=== PATIENT | male | born 1950 | race Caucasian/White ===

== ENCOUNTER → 2019-03-18 13:31 | Outpatient (CLI) | payer OTHER, SELFPAY ==
[2019-03-18 16:47] LABS: Prostate Specific Antigen 10.5 ng/mL (0.10-4.00)
== END ==
PROVIDERS: PCP Family Medicine; Visit Provider Urology
DX: R97.20 Elevated prostate specific antigen [PSA] (principal)
CPT/HCPCS: 36415; 84153

== ENCOUNTER → 2019-10-14 09:07 | Outpatient (CLI) | payer OTHER, SELFPAY ==
[2019-10-14 10:06] LABS: Add Manual Diff / Slide Review NO; Basophils Absolute Auto 100 /uL (0-100); Basophils Percent Auto 0.9 % (0-2); Eosinophils Absolute Auto 100 /uL (0-450); Eosinophils Percent Auto 1.9 % (2-4); Hematocrit 40.1 % (41-53); Hemoglobin 13.1 g/dL (13.5-17.5); Lymphocytes Absolute Auto 1600 /uL (1100-4500); Lymphocytes Percent Auto 23.8 % (25-40); Mean Corpuscular HGB Conc 32.6 % (30-36); Mean Corpuscular Hemoglobin 29.3 PG (26-34); Mean Corpuscular Volume 89.9 fL (80-100); Monocytes Absolute Auto 600 /uL (0-900); Monocytes Percent Auto 8.3 % (3-14); Neutrophils Absolute Auto 4500 /uL (1500-7000); Neutrophils Percent Auto 65.1 % (50-75); Platelet Count 231 X10^3/uL (150-400); Red Blood Cell Count 4.46 X10^6/uL (4.5-5.9); Red Cell Distribution Width 14.5 % (11.6-14.8); White Blood Cell Count 6.9 X10^3/uL (4.5-11.0)
[2019-10-14 10:19] LABS: Hemoglobin A1C% w Est Avg Glu 7.3 % (4.0-6.0)
[2019-10-14 10:25] LABS: Blood Urea Nitrogen 25 mg/dL (9-20); Calcium 9.3 mg/dL (8.4-10.2); Carbon Dioxide 27 mmol/L (22-32); Chloride 103 mmol/L (98-107); Estimated Glomerular Filt Rate > 60.0 mL/min (>60); Glucose 131 mg/dL (80-110); HEMOLYSIS < 15 (0-50); Potassium 4.6 mmol/L (3.4-5.1); Sodium 139 mmol/L (137-145)
== END ==
PROVIDERS: PCP Internal Medicine; Referring Provider Orthopaedic Surgery; Visit Provider Orthopaedic Surgery
DX: Z01.812 Encounter for preprocedural laboratory examination (principal); R73.9 Hyperglycemia, unspecified
CPT/HCPCS: 36415; 80048; 83036; 85025

== ENCOUNTER → 2019-10-17 11:28 | Outpatient (CLI) | payer OTHER, SELFPAY ==
[2019-10-17 12:12] LABS: Add Manual Diff / Slide Review NO; Basophils Absolute Auto 100 /uL (0-100); Basophils Percent Auto 0.9 % (0-2); Eosinophils Absolute Auto 100 /uL (0-450); Hematocrit 40.2 % (41-53); Hemoglobin 13.2 g/dL (13.5-17.5); Lymphocytes Absolute Auto 2000 /uL (1100-4500); Lymphocytes Percent Auto 27.8 % (25-40); Mean Corpuscular HGB Conc 32.8 % (30-36); Mean Corpuscular Hemoglobin 29.5 PG (26-34); Monocytes Absolute Auto 700 /uL (0-900); Monocytes Percent Auto 9.2 % (3-14); Neutrophils Absolute Auto 4300 /uL (1500-7000); Neutrophils Percent Auto 60.1 % (50-75); Platelet Count 228 X10^3/uL (150-400); Red Blood Cell Count 4.46 X10^6/uL (4.5-5.9); Red Cell Distribution Width 14.3 % (11.6-14.8); White Blood Cell Count 7.1 X10^3/uL (4.5-11.0)
[2019-10-17 13:19] LABS: Blood Urea Nitrogen 22 mg/dL (9-20); Calcium 9.6 mg/dL (8.4-10.2); Carbon Dioxide 27 mmol/L (22-32); Chloride 101 mmol/L (98-107); Estimated Glomerular Filt Rate > 60.0 mL/min (>60); Glucose 112 mg/dL (80-110); HEMOLYSIS < 15 (0-50); Sodium 139 mmol/L (137-145)
== END ==
PROVIDERS: PCP Family Medicine; Referring Provider Orthopaedic Surgery; Visit Provider Orthopaedic Surgery
DX: Z01.812 Encounter for preprocedural laboratory examination (principal)
CPT/HCPCS: 36415; 80048; 85025

== ENCOUNTER 2019-10-31 05:59 | Inpatient (IN) | payer OTHER, SELFPAY ==
[2019-09-30 12:37] VITALS: BMI 38.2
[2019-10-31] VITALS (18 sets, daily range): BP systolic 84–169; BP diastolic 34–71; PULSE 45–66; RESP 8–20; TEMP 36.3–37.1; O2SAT 90–99; BMI 36.4
--- NOTE | 2019-10-31 | DI.RAD.S_ITS ---
PROCEDURE: XR LUMBAR SPINE 2-3V INDICATIONS: L5-S1 TLIF TECHNIQUE: 2 intraoperative fluoroscopic views of the lumbar spine were acquired. COMPARISON: [facility], MR, MR LUMBAR SPINE WITHOUT CONTRAST, 03/21/2019, 9:45. FINDINGS: L5-S1 TLIF and intervertebral body spacer. IMPRESSION: Expected intraoperative appearance. Dictated by: Kenneth Mcmanus M.D. on 10/31/2019 at 15:23 Approved by: Kenneth Mcmanus M.D. on 10/31/2019 at 15:26
--- NOTE | 2019-10-31 07:12 | PM.PREOP ---
Pre-operative Note Interval Note History & Physical reviewed/Exam performed by Physician: Yes Changes to H&P: No
[2019-10-31] MEDS: LACTATED RINGERS 1,000 ML 42 ML IV ×2 (07:25→08:53)
[2019-10-31] MEDS: ACETAMINOPHEN 325 MG TABLET 975 MG PO (07:27)
[2019-10-31] MEDS: GABAPENTIN 300 MG CAPSULE PO (07:27)
[2019-10-31] MEDS: CELECOXIB 200 MG CAPSULE 400 MG PO ×2 (07:27→14:17)
[2019-10-31] MEDS: CEFAZOLIN 2 GM/100 ML FROZ.PIGGY IV ×3 (07:50→23:22)
[2019-10-31] MEDS: SODIUM CHLORIDE 0.9% 1,000 ML, GENTAMICIN 80 MG IRR (08:33)
[2019-10-31] MEDS: VANCOMYCIN 1,000 MG VIAL 1000 MG TOP (08:33)
[2019-10-31] MEDS: THROMBIN (RECOMBINANT) 5,000 UNIT VIAL 5000 UNIT TOP (08:33)
--- NOTE | 2019-10-31 08:39 | SUR.OPER ---
Prone on spine table, head in foam head support, padded chest and pelvic supports, gel pad at knees, lower legs supported by pillows; nipples, genitalia and toes free of pressure, arms secured on foam padded arm boards at <90 degrees abduction. Tape over blanket at thigh secured to table.
[2019-10-31] MEDS: BUPIVACAINE 0.5% (PF) 4 ML, MORPHINE-PF 4 MG, BUTORPHANOL 1 MG, fentaNYL 100 MCG INJ (11:10)
--- NOTE | 2019-10-31 12:01 | P.OP_ITS ---
Operative Date/Time/Diagnoses Date of procedure: 10/31/19 Time of procedure: 12:01 Pre-op diagnosis: Lumbar stenosis with radiculopathy Post-op diagnosis: same Procedure & Clinicians Procedure: L2-3, L3-4, L4-5, L5-S1 laminectomies L5-S1 TLIF with cage L5, S1 screws Iliac crest bone graft aspirate Use of microscope Placement of epidural catheter Same procedure as scheduled: Yes Indications: [age] year old male with intractable pain from stenosis. They had failed conservative management and requested operative intervention. Risks and benefits of surgery were discussed and appropriate consents were obtained. Surgeon: Tc Cho Powerhouse Tender: Ingris Trujillo Anesthesia Type: General Operative Notes Findings: None Closure Type: primary Specimen(s): none sent Prosthetic devices, grafts, tissues, transplants, or devices: NuVasive MAS Reline screws Globus Rise cage Applied: catheter Estimated Blood Loss (mL): 20 Procedure in detail: The patient was brought to the operating room and intubated on the table. A time-out was performed. They were then rolled over to the well- padded Valdez table in the prone position. Preoperative antibiotics were given. The back was prepped and draped in the standard sterile fashion. A 12 cm cm incision was made in the midline. We dissected down the right sided paraspinals to expose the lamina from L2 through S1 and out over the facets to the transverse processes and ala at L5 and S1. X-ray was taken to confirm positioning. A bur was used to decorticate the junction of the transverse process and facet. We then advanced a Jamshidi needle down the right pedicles of L5 and S1 using neuromonitoring and fluoroscopy. Due to the amount of force we had to retract trying to get S1 in, we made this one an alar screw. These were changed out to guidewires. We tapped and then placed our MAS reline screw shanks. A bur was used to decorticate the transverse process and sacral ala. Using a combination of bur and Kerrison rongeur a laminectomy was performed from the right side at L5-S1, L4-5, L3-4, and L2-3.. We cleared over past the midline and carefully depressed the dura until we were able to decompress the opposite side. We cleared out the neural foramen. This completed the laminectomies at all 4 levels. This was separate and distinct from the TLIF approach at L5-S1 as we were decompressing the canal and the nerves. We did have to do a facetectomy at L5-S1 to open up the foramen. We then began the TLIF prep. We carefully cleaned up the remainder of the foramen until we could easily retract the exiting root as well as clearing m edially below the dura and expose the disc space. The disc was prepped with bipolar and then an annulotomy was performed. We performed a diskectomy using a combination of paddles, amanda, Kerrison, and curettes. We distracted the disc using a paddle and locked the retractor in an open position. We then filled the disc space with Osteocel bone graft. We then placed the globus Rise cage under fluoroscopy and then filled this in with more bone graft. This completed the posterior interbody fusion portion of the TLIF at L5-S1. We then placed the screw heads on the screw shanks. We measured and placed the deloris and locked down the set screws. The wound was copiously irrigated. A small stab incision was made over the PSIS. We used a Jamshidi needle to aspirate several mL of bone marrow from the pelvis. This was mixed with the remaining Osteocel and combined with all of the locally harvested bone graft and placed in the posterolateral gutter for the posterior fusion of the TLIF at L5- S1. An epidural catheter was then placed in the spinal canal by carefully depressing the dura and advancing it 6 cm cephalad under the remaining lamina at L2 without resistance. The muscle fascia was closed. The catheter was then injected with a solution containing 4 mL of 0.5% Marcaine, 1 mg Stadol, 4 mg Duramorph, and 100 mcg of fentanyl. This was injected without resistance and the catheter was pulled. We then made a 4 cm incision on the left side using fluoroscopy. We opened up the fascia. We then percutaneously placed Jamshidi needles down the left pedicles of L5 and S1 with neural monitoring and fluoroscopy. These were changed out over guidewires to tapping and then placing our screws. We placed a deloris and locked it down. Final x-rays were taken. Vancomycin powder was placed in the wounds. The superficial and skin were closed. A sterile dressing was placed. The patient was then rolled over extubated and brought to recovery room without complications. Complications: none Post-operative Condition: stable Disposition: PACU Plan for aftercare: Inpatient. He has medical history of diabetes as well as stroke and has been on blood thinners until the surgery. He will need to restart his Plavix on postoperative day 5.
--- NOTE | 2019-10-31 12:31 | SUR.PHASEI ---
initial vital signs done at time of admission into PACU was done at 1212
--- NOTE | 2019-10-31 13:38 | PC.NURSE ---
Day shift: Pt on unit at approx 1330 from PACU. VS WNL. 2L NC 96%. Oriented to room and call light. Foster patent and draining. IV fluids per MAR. Denies any pain or chest pain. Spouse in room for support. Tolerating SCD's. Dressing on back is CDI.
[2019-10-31] MEDS: LACTATED RINGERS 1,000 ML 125 ML IV ×2 (13:53→22:01)
[2019-10-31] MEDS: METFORMIN HCL 500 MG TABLET 1000 MG PO ×2 (14:01→21:42)
[2019-10-31] MEDS: lisinopriL 20 MG TABLET PO (14:01)
[2019-10-31] MEDS: BACLOFEN 10 MG TABLET 40 MG PO (16:47)
--- NOTE | 2019-10-31 17:54 | PT.IIE ---
Current Diagnoses Spinal stenosis, lumbar region with neurogenic claudication (10/31/19) Ankylosing hyperostosis [[place]], site unspecified (10/31/19) Surgery Performed Operation Date: 08/30/19 07:45 <No data on this case meets the specified criteria> Operation Date: 10/31/19 07:45 Actual Procedures p L2-S1 laminectomies, L5-S1 instrumented fusion with bone graft - Tc Cho MD Surgical History (Last Reviewed 05/08/18 @ 16:14 by Sherif Melgoza MD) History of spinal fusion Medical History (Last Updated 09/30/19 @ 13:26 by Kellee Salinas RN) Adopted (Acute) Anxiety (Acute) BPH (benign prostatic hyperplasia) (Chronic) Cervical myelopathy (Chronic 11/16/17) Cervical stenosis of spinal canal (Acute) Claustrophobia (Acute) Depression (Acute) Easy bruisability (Acute) Essential hypertension (Chronic 07/14/14) Iron deficiency (Chronic 07/31/17) Mixed hyperlipidemia (Chronic 01/24/12) Myelopathy (Acute) Panic disorder (Chronic) Poor sleep (Acute) 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 Pt had a CVA 5 years ago and worked with [employer] for speech and swallow at the time. He and his report no residual communication deficits. Mobility and Gait Pt has mild R-sided hemiparesis resultant from CVA five years ago. He has been using SPC or 4WW ~10% of the time. He has been able to ambulate long parking lot distances without AD. Activities of Daily Living and IADL's Pt has had difficulty donning socks, occasionally needing help from his . He also reports difficulty washing his back. Independent with toileting. Prior Functional Level (Other details) Pt reports three falls in the last 12 months, none injurious . Social History Household Members spouse Living Arrangements House Number of Floors (Floors) Two Floors Number of Stairs To Enter/Railing? 3 [place] without railing. 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 Home Environment Standard Height Toilet,Walk in Shower Home Equipment Front Wheel Walker,Four Wheel Walker,Quad Cane,Straight Cane ,Raised Toilet Seat Without Armrests,Shower Seat without Backrest,Lift Recliner,Grab Bars Near Toilet Employment Status Retired Additional Social History Comment Pt lives with his who is also retired but is limited in her ability to assist at home due to back pain and typically ambulating with a 4WW. M2 PT-IP Current Condition Start: 10/31/19 16:34 Freq: NEEDED Status: Active Protocol: Document 10/31/19 17:26 AW (Rec: 10/31/19 17:54 AW [id number]) Physical Therapy Current Condition Current Condition Evaluation Date 10/31/19 Treatment Diagnosis L2-S1 lami, L5-S1 fusion, impaired mobility Onset Date 10/31/19 Precautions Lumbar Precautions Log Roll,No Twisting,Limit Bending,Lifting Restriction of 10 lbs,Gait Belt above Incisional Area Weight Bearing Status Weight Bearing Status Full Weight Bearing M3 PT-IP Subjective Start: 10/31/19 16:34 Freq: NEEDED Status: Active Protocol: Document 10/31/19 17:26 AW (Rec: 10/31/19 17:54 AW [id number]) Subjective Physical Therapy Visit Type Type Initial Evaluation Visit Start Time 16:45 Visit Stop Time 17:15 Total Visit Minutes 30 Notes Pt's Angel present throughout evaluation. Physical Therapy Visit Comments Patient Comments Pt feeling drowsy but without pain at the moment, willing to mobilize with PT Patient Goals Pt hopes to discharge home with spouse support. Therapy Pain Assessment Pain When Pain Assessed During Mobility Pain Present Pain Present Denied Pain M4 PT-IP Mobility and Gait Start: 10/31/19 16:34 Freq: NEEDED Status: Active Protocol: Document 10/31/19 17:26 AW (Rec: 10/31/19 17:54 AW [id number]) PT-Bed Mobility Assessment Rolling Type of Rolling Log Rolling Level of Assist Minimal Assistance,1 Person Assistance Supine to Sit Supine to Sit Minimal Assistance,1 Person Assistance Scooting Scooting to Edge of Bed Standby Assistance PT-Transfer Assessment Sit to and From Stand Sit to and from Stand Contact Guard Assistance,1 Person Assistance,Use of Upper Extremities Equipment Transfer Assistive Device Gait Belt,Front Wheeled Walker Orthotic/Prosthetic Devices or Brace: No Transfers Transfer Destination Chair Transfer Technique Stand Step Pivot Transfer Ability Level of Assist Contact Guard Assistance,1 Person Assistance,Use of Upper Extremities Comments Mobility Comments Pt encountered sitting up in bed upon PT arrival. Supine BP was 92/44 HR 53. From flattened bed, pt completed log roll to his left side min A x 1 and cues for sequencing and min A x 1 for supine to sit. Sitting BP was 100/45 HR 67 but pt began to report lightheadedness and had difficulty keeping his eyes open. Once pt seemed more attentive, he completed sit to stand with FWW CGA. Pt became increasingly symptomatic during step pivot transfer to chair CGA where BP was assessed 88/41 HR 56. He was able to scoot his hips back in the chair SBA where he was positioned with call light and table within reach, spouse visiting in room. Gait Assessment Gait Gait Assistance Required: Contact Guard Assist Distance (Feet) 2 Able to Maintain Weight Bearing Status Yes During Gait Assistive Devices Assistive Device Gait Belt,Front Wheeled Walker Orthotic/Prosthetic Devices or Brace: No Gait Deviations General Gait Pattern Antalgic,Decreased Stride Length,Decreased Feet Clearance,Flexed Trunk,Step-to Gait Factors Limiting Gait Function Factors Limiting Gait Function Decreased Activity Tolerance, Decreased Strength,Difficulty Following Directions,Limited Range of Motion,Poor Safety Awareness Comments Gait Comments See mobility comments Stair Climbing Assessment Comments Stair Climbing Comments Not assessed. Not safe at this time. PT-Balance Assessment Sitting Balance and Reactions Static Sitting Balance Ability Good Dynamic Sitting Balance Ability Good Standing Balance and Reactions Static Standing Balance Ability Fair Dynamic Standing Balance Ability Fair Device Used FWW M5 PT-IP Objective Assessments Start: 10/31/19 16:34 Freq: NEEDED Status: Active Protocol: Document 10/31/19 17:26 AW (Rec: 10/31/19 17:54 AW [id number]) Orientation Orientation/Cognition Level of Alertness Confusional State Orientation Name,Month,Place,Situation Language Function Ability No Deficits Noted Safety Awareness Decreased Safety Awareness Gross Range of Motion Lower Extremity ROM Assessment Bilaterally Impaired Strength Lower Extremity Strength Assessment Bilaterally Impaired Comments Strength Comments LLE grossly 4/5; RLE grossly 4 -/5 Coordination Assessment Gross Coordination Gross Coordination WNL Sensation Assessment Sensation Gross Sensation WNL M6 PT-IP Treatment Start: 10/31/19 16:34 Freq: NEEDED Status: Active Protocol: Document 10/31/19 17:26 AW (Rec: 10/31/19 17:54 AW [id number]) Physical Therapy Treatment Education Education Provided Precautions,Weight Bearing Status,Post-Op Packet,Safety Other Treatments Other Treatment Performed Provided education on role of PT, plan of care, spinal precautions, and safe use of FWW. M7 PT-IP Assessment and Plan Start: 10/31/19 16:34 Freq: NEEDED Status: Active Protocol: Document 10/31/19 17:26 AW (Rec: 10/31/19 17:54 AW [id number]) PT Summary Assessment and Plan Potential Rehabilitation Potential Good Status of Condition at Evaluation Evolving Summary Impairments ROM,Strength,Balance,Bed Mobility,Transfers,Gait, Activity Tolerance Assessment Summary Sherwin is a 69 yo man seen for PT evaluation on POD0 following L2-S1 laminectomy and L5-S1 fusion. At baseline, pt had limitations in distance/time for ambulation but was able to walk long parking lot distances without AD. Pt reports he was using SPC or 4WW ~10% of the time. Pt had a CVA 5 years ago with resultant mild right hemiparesis. On evaluation, pt was limited due to symptomatic hypotension. He required CGA to min A x 1 for all mobility. PT anticipates he will meet the functional goals of this plan of care and be safe to discharge home with assist from spouse and outpatient PT. Will continue to assess and refine discharge recommendation. Goals Bed Mobility Goal Standby Assistance Transfer Goal Standby Assistance,Front Wheeled Walker Gait Goal Standby Assistance,Front Wheel Walker Gait Distance 150 Other Goals - up/down 3 steps without railing and LRAD SBA Days to Meet Goals 5 Frequency of Treatment Frequency Of Treatment Twice a Day Treatment Plan Physical Therapy Treatment Plan Bed Mobility Training,Transfer Training,Gait Training, Therapeutic Exercise,Balance Retraining,Post Op Education, Discharge Planning,Hot or Cold Pack,Neuromuscular Re-ed, Coordination Retraining,Manual Therapy Other Recommendations and Next Treatment review precautions, log roll; Focus practice transfers; assess ambulation with FWW; assess safety on stairs. Recommendations To Nursing Amount of Assist Needed 1 Person Assist Discharge Recommendations PT Discharge Recommendations Home with Assistance, Outpatient PT Transportation Needs at Discharge Private Vehicle
[2019-10-31] MEDS: SODIUM CHLORIDE 0.9% 500 ML 1000 ML IV ×2 (20:31→22:29)
--- NOTE | 2019-10-31 20:31 | PC.NURSE ---
Addendum entered by Milana Beebe R.N. 10/31/19 23:28: 2215: BP 100/45, HR 61. Post 1L NS Bolus. Output 175 ml. Denies dizziness, skin pink, warm, and dry. Alert, oriented, and very pleasant. Original Note: Erika shift note: Patient awake and alert, noted with low BP and increase in heart rate with position changes. Notified Dr. Tolliver regarding BP, HR,and low urine output (100 ml) this shift. Orders obtain for Bolus 500 ml x 2 and hold BP meds for now. No c/o chest pain or SOB. States he has very minimal dizziness. Will continue to monitor closely.
[2019-10-31] MEDS: DOCUSATE 100 MG CAPSULE PO (21:41)
[2019-10-31] MEDS: CELECOXIB 200 MG CAPSULE PO (21:41)
[2019-10-31] MEDS: GABAPENTIN 600 MG TABLET PO (21:41)
[2019-10-31] MEDS: SENNOSIDES 8.6 MG TABLET 17.2 MG PO (21:43)
[2019-10-31] MEDS: clonazePAM 0.5 MG TABLET PO (21:45)
[2019-11-01] VITALS (11 sets, daily range): BP systolic 96–131; BP diastolic 52–98; PULSE 53–71; RESP 16–20; TEMP 36.5–37.1; O2SAT 86–98
--- NOTE | 2019-11-01 06:44 | PC.NURSE ---
Turned patient to assess dressing before change of shift (drainage at start of shift noted), dressing was saturated and leaking. Changed dressing and gauze, left xeroform gauze in place, covered with tegaderm. Patient tolerated well.
[2019-11-01] MEDS: LACTATED RINGERS 1,000 ML 125 ML IV ×2 (06:46→20:21)
[2019-11-01 07:06] LABS: Hematocrit 31.9 % (41-53); Hemoglobin 10.4 g/dL (13.5-17.5)
--- NOTE | 2019-11-01 07:27 | PM.PNPO.1 ---
Subjective Subjective Date Patient Seen: 11/01/19 Time Patient Seen: 07:27 Interval history: He is doing very well. Minimal pain. Exam Vital Signs (past 8 hours): - 11/01/19 02:00 11/01/19 05:05 Temperature 98.2 F 97.9 F Pulse Rate 58 L 57 L Respiratory Rate 20 19 Blood Pressure 96/80 109/98 H Pulse Oximetry 98 96 Oxygen Delivery Method Nasal Cannula Oxygen Flow Rate 0 Const Orientation: alert and oriented x3 Back/Spine/Pelvis Other: Dressing changed about an hour ago but already has some moderate drainage on the left side. 5/5 motor both lower extremities. Objective Labs Result Diagrams: 11/01/19 06:55 11/01/19 06:55 Labs: Laboratory Results - last 24 hr 11/01/19 06:55 Hgb 10.4 L Hct 31.9 L Assessment & Plan Post-op Postoperative Procedures: Procedures Operation Date: 08/30/19 07:45 <No data on this case meets the specified criteria> Operation Date: 10/31/19 07:45 Actual Procedures Side Surgeon p L2-S1 laminectomies, L5-S1 instrumented fusion with bone graft Tc Cho MD He is doing well. Mobilize today with physical therapy. Change dressing as needed. Anticipate discharge in the next 1-2 days.
[2019-11-01 07:28] LABS: BUN Creatinine Ratio 23.6 (6-22); Blood Urea Nitrogen 26 mg/dL (9-20); Carbon Dioxide 26 mmol/L (22-32); Chloride 104 mmol/L (98-107); Estimated Glomerular Filt Rate > 60.0 mL/min (>60); Glucose 116 mg/dL (80-110); HEMOLYSIS < 15 (0-50); Potassium 4.4 mmol/L (3.4-5.1); Sodium 136 mmol/L (137-145)
[2019-11-01] MEDS: TAMSULOSIN 0.4 MG CAPSULE 0.8 MG PO (10:02)
[2019-11-01] MEDS: FERROUS SULFATE 325 MG TABLET 650 MG PO (10:03)
[2019-11-01] MEDS: DULOXETINE 30 MG CAPSULE PO (10:03)
[2019-11-01] MEDS: BACLOFEN 10 MG TABLET 20 MG PO (10:04)
[2019-11-01] MEDS: METFORMIN HCL 500 MG TABLET 1000 MG PO ×2 (10:04→18:12)
[2019-11-01] MEDS: DOCUSATE 100 MG CAPSULE PO ×2 (10:05→20:26)
[2019-11-01] MEDS: ATORVASTATIN 20 MG TABLET PO (10:05)
[2019-11-01] MEDS: hydrOXYzine pamoate 25 MG CAPSULE PO (10:07)
[2019-11-01] MEDS: CELECOXIB 200 MG CAPSULE PO ×2 (10:08→20:26)
--- NOTE | 2019-11-01 10:54 | OT.IP.EVAL ---
Current Diagnoses Spinal stenosis, lumbar region with neurogenic claudication (10/31/19) Ankylosing hyperostosis [[place]], site unspecified (10/31/19) Surgery Performed Operation Date: 08/30/19 07:45 <No data on this case meets the specified criteria> Operation Date: 10/31/19 07:45 Actual Procedures p L2-S1 laminectomies, L5-S1 instrumented fusion with bone graft - Tc Cho MD Past Medical History (Last Updated 09/30/19 @ 13:26 by Kellee Salinas RN) Adopted (Acute) Anxiety (Acute) BPH (benign prostatic hyperplasia) (Chronic) Cervical myelopathy (Chronic 11/16/17) Cervical stenosis of spinal canal (Acute) Claustrophobia (Acute) Depression (Acute) Easy bruisability (Acute) Essential hypertension (Chronic 07/14/14) Iron deficiency (Chronic 07/31/17) Mixed hyperlipidemia (Chronic 01/24/12) Myelopathy (Acute) Panic disorder (Chronic) Poor sleep (Acute) 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) Recurrent major depressive disorder, in full remission (Chronic) RLS (restless legs syndrome) (Acute) Shortness of breath (Acute) Type 2 diabetes mellitus without complication (Chronic) Undescended testicle of both sides (Acute) Surgical History (Last Reviewed 05/08/18 @ 16:14 by Shreif Melgoza MD) History of spinal fusion Occupational Therapy Inpatient Evaluation/Re-Eval M1 PT/OT-IP Prior Functional Status Start: 10/31/19 16:34 Freq: NEEDED Status: Active Protocol: Document 11/01/19 12:42 CGR (Rec: 11/01/19 12:52 CGR [id number]) Medical Review Prior Functional Status Medical History Reviewed Yes Diet/Fluid Consistency Regular Communication WNL. Pt had a CVA 5 years ago and worked with STRUCTURAL ENGINEERING DRAFTING OFFICER for speech and swallow at the time. He and his report no residual communication deficits. Mobility and Gait Pt has mild R-sided hemiparesis resultant from CVA five years ago. He has been using SPC or 4WW ~10% of the time. He has been able to ambulate long parking lot distances without AD. Activities of Daily Living and IADL's Pt has had difficulty donning socks, occasionally needing help from his . He also reports difficulty washing his back. Independent with toileting. Prior Functional Level (Other details) Pt reports three falls in the last 12 months, none injurious . Social History Household Members spouse Living Arrangements House Number of Floors (Floors) Two Floors Number of Stairs To Enter/Railing? 3 [place] without railing. Pt stays on entry rep with no need to access the basement. Home Environment Standard Height Toilet,Walk in Shower Home Equipment Front Wheel Walker,Four Wheel Walker,Quad Cane,Straight Cane ,Raised Toilet Seat Without Armrests,Bed Setter,Lift Recliner ,Grab Bars Near Toilet Employment Status Retired Additional Social History Comment Pt lives with his who is also retired but is limited in her ability to assist at home due to back pain and typically ambulating with a 4WW. M2 OT-IP Current Condition Start: 11/01/19 12:42 Freq: Status: Active Protocol: Document 11/01/19 12:42 CGR (Rec: 11/01/19 12:52 CGR [id number]) Occupational Therapy Current Condition Current Condition Evaluation Date 11/01/19 Treatment Diagnosis L2-S1 TLIF with cage Diagnosis Onset Date 10/31/19 Post Operative Precautions Lumbar Precautions Log Roll,No Twisting,Limit Bending,Lifting Restriction of 10 lbs,Gait Belt above Incisional Area M3 OT- IP Subjective and Pain Start: 11/01/19 12:42 Freq: Status: Active Protocol: Document 11/01/19 12:42 CGR (Rec: 11/01/19 12:52 CGR [id number]) OT- Subjective Occupational Therapy Visit Type Type Initial Evaluation Visit Start Time 10:22 Visit Stop Time 10:54 Total Visit Minutes 32 Notes Pt's present at start of session but left to attempt to get shower stool from DME loan location. OT Pain Assessment Pain When Pain Assessed At Rest Pain Present Pain Present Pain Reported Location lower back Intensity 2 Scale Used Numeric (1 - 10) Management Techniques Modification of Treatment, Timing of Activity with Medications M4 OT- IP ADL's Start: 11/01/19 12:42 Freq: Status: Active Protocol: Document 11/01/19 12:42 CGR (Rec: 11/01/19 12:52 CGR [id number]) OT [id number] Comments OT Self-Feeding Comments Not meal time OT ADL-Grooming General Evaluation Grooming Ability Standby Assistance Areas Needing Assistance Face Washing Comments OT Grooming Comments Seated in chair OT ADL-Oral Care General Eval Oral Care Ability Standby Assistance Areas of Assistance Brushing Teeth,Retrieving/Set- Up of Items Comments Oral Care Comments Seated in chair OT ADL-Dressing General Eval Lower Body Dressing Ability Total Assistance Comments OT Dressing Comments LB dressing to be addressed in next session. OT ADL-Toileting Comments OT Toileting Comments Pt with rowe OT ADL-Bathing Comments OT Bathing Comments Not performed in this session. M5 OT- IP IADL's Start: 11/01/19 12:42 Freq: Status: Active Protocol: Document 11/01/19 12:42 CGR (Rec: 11/01/19 12:52 CGR [id number]) OT-Instrumental Activities of Daily Living Deficits IADL Deficits Identified Deficits Home Safety Awareness Awareness of Need for Assistance at Home Good Awareness Ability to Problem Solve Emergency Able to Problem Solve Situations Home Safety Comments Pt will need review of back precautions. Medication Management Medication Management Caregiver Provides Supervision Money Management Money Management Caregiver Provides Supervision Meal Preparation Meal Preparation Caregiver Provides Supervision Tube Operator Tube Operator Caregiver Provides Assist Driving Driving Comments Pt understand that he can not drive again till cleared by MD . M6 OT- IP Functional Cognition Start: 11/01/19 12:42 Freq: Status: Active Protocol: Document 11/01/19 12:42 CGR (Rec: 11/01/19 12:52 CGR [id number]) Cognitive Factors Limiting Selfcare Function Cognitive Ability Level of Alertness Alert Patient Orientation Name,Age,Birthday,Month,Date, Year,Day of Week,Place, Situation Attention Span Ability Capable of Focused Attention, Capable of Sustained Attention Ability to Follow Commands Able to Follow Multi-Step Commands Memory Description No Deficits Noted Safety Awareness No Deficits Noted Problem Solving Ability No deficits Noted Executive Function Ability No Deficits Noted Abstract Thinking Ability No Deficits Noted OT- Vision and Hearing OT- Hearing Assessment OT- Hearing Assessment WFL OT- Vision Assessment Visual Acuity No Vision Aides At Hospital Visual Attentiveness WFL Occular Pursuits WFL Visual Convergence WFL Visual Martin WFL Vision Assessment Comments Pt uses glasses for driving mostly at night. M7 OT- IP Mobility and Balance Start: 11/01/19 12:42 Freq: Status: Active Protocol: Document 11/01/19 12:42 CGR (Rec: 11/01/19 12:52 CGR [id number]) OT- Bed Mobility Assessment Rolling Type of Rolling Log Rolling,Roll to Right Level of Assistance Minimal Assistance Supine to Sit Supine to Sit Assist Minimal Assistance Scooting Scooting to Edge of Bed Minimal Assistance OT-Transfer Assessment Sit to and From Stand Sit to and from Stand Contact Guard Assistance Transfers Transfer Ability Contact Guard Assistance Technique Transfer Destination Bed,Chair Transfer Technique Stand Step Pivot Devices Transfer Assistive Devices Gait Belt,Front Wheeled Walker Comments Mobility Comments Pt ambulated from R side of bed to chair on the left side of the bed. Given AM hx of low BP, further mobility was deffered at this time. OT- Balance Assessment Sitting Balance and Reactions Static Sitting Balance Ability Fair Dynamic Sitting Balance Ability Poor M8 OT- IP Objective Assessments Start: 11/01/19 12:42 Freq: Status: Active Protocol: Document 11/01/19 12:42 CGR (Rec: 11/01/19 12:52 CGR [id number]) OT Gross Range of Motion Upper Extremity Range of Motion Assessment Within Functional Limits ROM Impairments shlds 0-90 but functional OT Strength Upper Extremity Strength Assessment Within Functional Limits Comments Strength Comments grossly 4/5 or greater OT- Coordination Assessment Upper Extremity Finger to Nose Test Within Functional Limits Finger Tapping Test Within Functional Limits OT-Muscle Tone Assessment Muscle Tone WNL Yes OT Sensation Assessment Edema Edema Absent M9 OT- IP Assessment and Plan Start: 11/01/19 12:42 Freq: Status: Active Protocol: Document 11/01/19 12:42 CGR (Rec: 11/01/19 12:52 CGR [id number]) OT Summary Assessment and Plan Potential Rehabilitation Potential Good Analytic Complexity at Evaluation Low Summary OT Impairments Pain,Range of Motion,Balance, Functional Mobility,Grooming, Dressing,Toileting,Bathing, Toilet Transfers,Shower Transfers,Activity Tolerance Progress Towards Goals Slow Progress due to Pain Assessment Summary Pt presents as a low complexity evaluation s/p L2- S1 TLIF with cage. Pt with low BP this AM but 117/72 seated EOB and 112/69 upon sitting in chair. Pt closes eyes often throughout session. Pt declined mobility into the bathroom and requested ADLs seated in chair on this date. Will increase activity level upon next session. Recommendation is for home vs SNF but pt likely to progress to be a safe discharge home with help from his . Goals Grooming Goal Independent Dressing Goal Independent,Bed Setter,Sock Aid Toileting Goal Independent Bathing Goal Independent Toilet Transfer Goal Independent Shower Transfer Goal Independent Days to Meet Goals 3 Frequency of Treatment Frequency Of Treatment Once a Day Treatment Plan OT Treatment Plan ADL Training,Functional Mobility,Patient/Family Education,Discharge Planning Other Treatment Recommendations and Next Shower if MD approves and ADLs Treatment Focus standing, LB dressing. Discharge Recommendations OT Discharge Recommendations Home with 24/7 Assist,SNF Rehab Other Discharge Recommendations Contreras to progress to be safe d/c to home with support. Home Equipment Needs went to get shower stool. Transportation Needs at Discharge Private Vehicle
--- NOTE | 2019-11-01 13:23 | PT.IPTN ---
Current Diagnoses Spinal stenosis, lumbar region with neurogenic claudication (10/31/19) Ankylosing hyperostosis [[place]], site unspecified (10/31/19) Surgery Performed Operation Date: 08/30/19 07:45 <No data on this case meets the specified criteria> Operation Date: 10/31/19 07:45 Actual Procedures p L2-S1 laminectomies, L5-S1 instrumented fusion with bone graft - Tc Cho MD Physical Therapy Treatment Note M2 PT-IP Current Condition Start: 10/31/19 16:34 Freq: NEEDED Status: Active Protocol: Document 10/31/19 17:26 AW (Rec: 10/31/19 17:54 AW [id number]) Physical Therapy Current Condition Current Condition Evaluation Date 10/31/19 Treatment Diagnosis L2-S1 lami, L5-S1 fusion, impaired mobility Onset Date 10/31/19 Precautions Lumbar Precautions Log Roll,No Twisting,Limit Bending,Lifting Restriction of 10 lbs,Gait Belt above Incisional Area Weight Bearing Status Weight Bearing Status Full Weight Bearing M3 PT-IP Subjective Start: 10/31/19 16:34 Freq: NEEDED Status: Active Protocol: Document 11/01/19 12:33 SP (Rec: 11/01/19 12:55 SP [email or web address]) Subjective Physical Therapy Visit Type Type Treatment Note Visit Start Time 11:15 Visit Stop Time 11:45 Total Visit Minutes 30 Physical Therapy Visit Comments Patient Comments Pt feeling a little drowsy and has mild pain in the lower back. Pt willing to mobilize with PT. M4 PT-IP Mobility and Gait Start: 10/31/19 16:34 Freq: NEEDED Status: Active Protocol: Document 11/01/19 12:33 SP (Rec: 11/01/19 12:55 SP [id number]) PT-Transfer Assessment Sit to and From Stand Sit to and from Stand Minimal Assistance,2 Person Assistance,Use of Upper Extremities Equipment Transfer Assistive Device Gait Belt,Front Wheeled Walker Orthotic/Prosthetic Devices or Brace: No Comments Mobility Comments Pt's BP upon PT arrival was 109/53 O2 96%. Pt required Francisca for sit to stand and BUE support. Pt's BP upon standing 79/50 and pt was instructed to sit down right away. BP was checked 1 minute after sitting down 133/46. Pt stood up again and BP was 114/48. He denied symptoms of dizziness or lightheaded. Gait Assessment Gait Gait Assistance Required: Contact Guard Assist Distance (Feet) 20 Able to Maintain Weight Bearing Status Yes During Gait Assistive Devices Assistive Device Gait Belt,Front Wheeled Walker Orthotic/Prosthetic Devices or Brace: No Gait Deviations General Gait Pattern Antalgic,Decreased Stride Length,Decreased Feet Clearance,Flexed Trunk,Step-to Gait Factors Limiting Gait Function Factors Limiting Gait Function Decreased Activity Tolerance, Decreased Strength,Difficulty Following Directions,Limited Range of Motion,Poor Safety Awareness Comments Gait Comments Pt ambulated 20ft with FWW and CGA, withwheelchair follow and 3L O2. O2 remained 94% throughout tx and BP 129/88 O2 97% following tx. Call light left next to pt and was present. PT-Balance Assessment Sitting Balance and Reactions Static Sitting Balance Ability Good M5 PT-IP Objective Assessments Start: 10/31/19 16:34 Freq: NEEDED Status: Active Protocol: Document 10/31/19 17:26 AW (Rec: 10/31/19 17:54 AW [id number]) Orientation Orientation/Cognition Level of Alertness Confusional State Orientation Name,Month,Place,Situation Language Function Ability No Deficits Noted Safety Awareness Decreased Safety Awareness Gross Range of Motion Lower Extremity ROM Assessment Bilaterally Impaired Strength Lower Extremity Strength Assessment Bilaterally Impaired Comments Strength Comments LLE grossly 4/5; RLE grossly 4 -/5 Coordination Assessment Gross Coordination Gross Coordination WNL Sensation Assessment Sensation Gross Sensation WNL M6 PT-IP Treatment Start: 10/31/19 16:34 Freq: NEEDED Status: Active Protocol: Document 10/31/19 17:26 AW (Rec: 10/31/19 17:54 AW [id number]) Physical Therapy Treatment Education Education Provided Precautions,Weight Bearing Status,Post-Op Packet,Safety Other Treatments Other Treatment Performed Provided education on role of PT, plan of care, spinal precautions, and safe use of FWW. M7 PT-IP Assessment and Plan Start: 10/31/19 16:34 Freq: NEEDED Status: Active Protocol: Document 11/01/19 12:33 SP (Rec: 11/01/19 12:55 SP [id number]) PT Summary Assessment and Plan Potential Rehabilitation Potential Good Status of Condition at Evaluation Evolving Summary Impairments ROM,Strength,Balance,Bed Mobility,Transfers,Gait, Activity Tolerance Assessment Summary Pt was able to transfer sit to stand with Francisca and BUE support. Pt's BP decreased to 79/50 when standing up and pt was instructed to sit down. His BP increased to 133/46 when sitting. Pt stood up again and BP was stable. He ambulated 20ft FWW with CGA and wheelchair follow. Pt maintained O2 94% throughout tx. He was able to verbalize postop precautions and log roll method. Call light left next to pt with present. Pt drowsy throughout tx and visible BLE weakness. Pt's will not be able to assist him at home due to her own chronic back/leg pain and use of FWW. At this time, it is recommended that pt goes to short-term rehab. Pt seemed open to the idea and will depend on progress. Will continue to assess and refine discharge recommendation. Goals Bed Mobility Goal Standby Assistance Transfer Goal Standby Assistance,Front Wheeled Walker Gait Goal Standby Assistance,Front Wheel Walker Gait Distance 150 Other Goals up/down 3 steps without railing Days to Meet Goals 5 Frequency of Treatment Frequency Of Treatment Twice a Day Treatment Plan Physical Therapy Treatment Plan Bed Mobility Training,Transfer Training,Gait Training, Therapeutic Exercise,Balance Retraining,Post Op Education, Discharge Planning,Hot or Cold Pack,Neuromuscular Re-ed, Coordination Retraining,Manual Therapy Other Recommendations and Next Treatment review precautions, log roll; Focus practice transfers; assess ambulation with FWW; assess safety on stairs. Recommendations To Nursing Amount of Assist Needed 2 Person Assist Discharge Recommendations PT Discharge Recommendations Home with Assistance,Home Health,SNF Rehab Transportation Needs at Discharge Private Vehicle This note reviewed by Barron Baptiste, PT
--- NOTE | 2019-11-01 14:11 | CM.DANOTE ---
Addendum entered by Parisa Tolliver R.N. 11/05/19 12:25: Patient lives in [place] and [facility] where referral was sent Addendum entered by Parisa Tolliver R.N. 11/02/19 16:03: Cm/Rn met with patient at the bedside today and patient at the bedside along with his who will be at home to assist with caregiving. PT wants patient to go to SNF- talked with patient they [facility]? patient has [employer] and [facility] is not contracted with [employer] at this time. Patient stated they want to go home with HH if [facility] is not an option?.. Lives in [place] need F2F signed [facility] referral sent Parisa Tolliver RN Original Note: DCP Assessment: EMR reviewed: Patient is a 69 yr old male who was admitted for Multiple spinal surgery preformed by Dr rankin. CM/RN met with patient at the bedside and explained role. Patient was alert and orientedx3. Patient is I with all ADL's at base line and has a FWW and cane at home. Patients went to get patient a shower chair for home in anticipation of his return. Patient currently lives with his in a two story house but has no need to go into the basement of the home. PT eval done and recommended home with assistance. I: [employer] Medicare advantage and self pay Plan: D/C home with when medically stable. Cm Department will follow this patient to determine if they will need SNF or HH based on patients progress with PT and OT. Parisa Tolliver RN Discharge Planning/Care Management CM Discharge Assessment Start: 11/01/19 14:08 Freq: Status: Active Protocol: Document 11/01/19 14:08 (Rec: 11/01/19 14:11 [id number]) Discharge Planning Assessment Assigned Zoo Keeper Parisa Tolliver RN DPOA/Assigned Designee Name Silvia Sparks (spouse) Contact Information [phone] Advance Directives? No Advance Directives on File No History Provided By Patient Has Patient been admitted in last 30 No days? Prior Living Arrangements House Household Members spouse Type of transporation used prior to Relies on Others admit Independent with ADL's No: Patient has help with dressing and some grooming Is patient alert and oriented? Yes Needs Assistance With Grooming Caregiver for Another No DME Already Rented / Owned Elevated Toilet Seat,FWW / Walker,Cane Discharge Plan Home Referrals Initiated None needed Whiteboard Updated in Patient Room with Yes name and ext. # of Zoo Keeper Review Status In Process Next Review Type Continued Stay Review Pre-Anesthesia Assessment Start: 09/20/19 07:50 Freq: Status: Complete Protocol: Document 09/30/19 12:37 CAB (Rec: 09/20/19 08:00 [facility] [id number]) Pre-Anesthesia Assessment Patient Information Reviewed Via Phone Assessment Primary Care Provider Elton Dang Seen Specialist in Last 12 Months Yes Specialist Seen Orthopedist Primary Language Russian Granite Installer Required No Height 157.48 cm Weight 94.8 kg Body Mass Index (BMI) 38.2 Hearing Ability Normal Visual Impairment No Limitations Visual Assist None Dentition Type Full- Upper & Lower Barriers to Learning None Hx Anesthesia Reactions No: Difficulty w/extubation r/ t cervical fusion per pt Hx Family Anesthesia Reaction No: Pt adopted Hx Malignant Hyperthermia No Hx Blood Transfusions No Anesthesia Review Requested No alcohol intake current alcohol intake frequency holidays/special occasions only Smoking Status Former smoker Tobacco type cigarettes Has it been 2 weeks or less since No patient quit smoking how long ago did patient quit smoking 2009 Substance Use Type does not use Comment smoked for 40 years Pain Present Pain Reported Musculoskeletal Symptoms Abnormal Gait,Back Pain,Muscle Spasms,Numbness History of Falling (Recent or History of Yes ) Patient is completely paralyzed or No completely immobile Prosthesis or Orthotic Device Cane Mental Status Oriented to own ability Is patient on oxygen? No Does patient have JUNG/SOB Yes Hx Sleep Apnea No Currently Taking a Beta Mike No Can You Climb a Flight of Stairs Without No SOB Hx Chest Pain No Hx SOB Yes: JUNG Hx Syncope or Dizziness Yes: Dizziness >15 years ago, resolved Anti-Coagulant Therapy Yes: Plavix, ASA-pt will confirm w/surgeon on when to hold Has a Mixer Operator No Cardiac Testing No Hx Pacemaker/ICD No Pacemaker Rep Required? No Cardiac Clearance Received Not Applicable Diet Type At Home Regular dysphagia Yes: Solid, large pills r/t cervical fusion surgery Genitourinary Symptoms Change in Urinary Stream Bladder Pattern Hesitancy Urinary Catheter Present No Hx Urinary Self Catheterization No Diabetes Yes HgbA1C 7.8 Date 11/10/17 Hx Drug Resistant Organism No Presence of External or Internal Medical Yes: Cervical hardware Devices Have you traveled outside the [facility] in the last 30 days? Marital Status Lives With spouse Prior Living Arrangements House Number of Floors (Floors) Two Floors Support System Spouse Does the Patient Have Assistance After Yes Surgery Patient Discharge Plan Description Return Home Comment Pt advised 2-3 day length of stay per surgeon Feels Safe in Current Environment Yes Been Physically Hurt or Threatened By a No Person in Current Environment Do you have thoughts of harming yourself None or others? Are you currently considering suicide? No Do you have a plan to hurt yourself or No Plan others? Do You Have Any Spiritual Beliefs That No May Affect Your HC Choices? Do You Have Any Cultural Practices That No May Affect Your HC Choices? Who Can We Speak to About Patient's Care Family, friends Identifying Code for Release of Patient Declines to issue Information Health Care Proxy/Next of Kin Silvia () Health Care Proxy Emergency Contact Name Silvia () Emergency Contact Advance Directives? No Power of Systems Integration Advisor No PAC Instructions Do not shave/clip surgical site,Durable medical equipment ,Medications to take/avoid, Nasal antibiotic,No ETOH/ petroleum product on skin DOS, NPO,Post-op transportation,Pre -surgical wash,Sturdy shoes/ comfortable clothes,Do not bring valuables and remove jewelry
[2019-11-01] MEDS: HYDROMORPHONE 0.5 MG INJ 0.2 MG IV (14:18)
--- NOTE | 2019-11-01 14:56 | PT.IPTN ---
Current Diagnoses Spinal stenosis, lumbar region with neurogenic claudication (10/31/19) Ankylosing hyperostosis [[place]], site unspecified (10/31/19) Surgery Performed Operation Date: 08/30/19 07:45 <No data on this case meets the specified criteria> Operation Date: 10/31/19 07:45 Actual Procedures p L2-S1 laminectomies, L5-S1 instrumented fusion with bone graft - Tc Cho MD Physical Therapy Treatment Note M2 PT-IP Current Condition Start: 10/31/19 16:34 Freq: NEEDED Status: Active Protocol: Document 10/31/19 17:26 AW (Rec: 10/31/19 17:54 AW [id number]) Physical Therapy Current Condition Current Condition Evaluation Date 10/31/19 Treatment Diagnosis L2-S1 lami, L5-S1 fusion, impaired mobility Onset Date 10/31/19 Precautions Lumbar Precautions Log Roll,No Twisting,Limit Bending,Lifting Restriction of 10 lbs,Gait Belt above Incisional Area Weight Bearing Status Weight Bearing Status Full Weight Bearing M3 PT-IP Subjective Start: 10/31/19 16:34 Freq: NEEDED Status: Active Protocol: Document 11/01/19 14:40 KS (Rec: 11/01/19 16:40 KS [id number]) Subjective Physical Therapy Visit Type Type Treatment Note Visit Start Time 14:40 Visit Stop Time 14:56 Total Visit Minutes 16 Number of POLISHING MACHINE OPERATOR HELPER Visits 2 Physical Therapy Visit Comments Patient Comments Pt stated that he did not want to get in bed, but was agreeable to LE strengthening exercises in bed. M4 PT-IP Mobility and Gait Start: 10/31/19 16:34 Freq: NEEDED Status: Active Protocol: Document 11/01/19 14:40 KS (Rec: 11/01/19 16:40 KS [id number]) PT-Transfer Assessment Comments Mobility Comments Pt in bed w/ HOB elevated upon arrival from therapy. Pt stated that he was very tired and did not want to get out of bed, but agreed to complete LE strengthening exercises including ankle pumps, heel slides, quad sets, glute sets, and SLR. Pt denied increase of pain during exercises but verbalized some tightness in L hip w/ SLR. Pt left in room w / all needs in reach. Gait Assessment Comments Gait Comments not assessed at this time. Stair Climbing Assessment Comments Stair Climbing Comments Not assessed. Not safe at this time. M5 PT-IP Objective Assessments Start: 10/31/19 16:34 Freq: NEEDED Status: Active Protocol: Document 10/31/19 17:26 AW (Rec: 10/31/19 17:54 AW [id number]) Orientation Orientation/Cognition Level of Alertness Confusional State Orientation Name,Month,Place,Situation Language Function Ability No Deficits Noted Safety Awareness Decreased Safety Awareness Gross Range of Motion Lower Extremity ROM Assessment Bilaterally Impaired Strength Lower Extremity Strength Assessment Bilaterally Impaired Comments Strength Comments LLE grossly 4/5; RLE grossly 4 -/5 Coordination Assessment Gross Coordination Gross Coordination WNL Sensation Assessment Sensation Gross Sensation WNL M6 PT-IP Treatment Start: 10/31/19 16:34 Freq: NEEDED Status: Active Protocol: Document 11/01/19 14:40 KS (Rec: 11/01/19 16:40 KS [id number]) Physical Therapy Treatment Exercises Exercises Ankle Pumps,Gluteal Sets,Quad Sets,Heel Slides,Straight Leg Raises Education Education Provided Precautions,Post-Op Packet, Safety M7 PT-IP Assessment and Plan Start: 10/31/19 16:34 Freq: NEEDED Status: Active Protocol: Document 11/01/19 14:40 KS (Rec: 11/01/19 16:40 KS [id number]) PT Summary Assessment and Plan Potential Rehabilitation Potential Good Status of Condition at Evaluation Evolving Summary Impairments ROM,Strength,Balance,Bed Mobility,Transfers,Gait, Activity Tolerance Assessment Summary Pt unwilling to get out of bed this afternoon. Completed 1x10 ankle pumps, SLR< quad sets, glute sets, and heel slides. At this time, pt agrees to getting out of bed tomorrow morning. Goals Bed Mobility Goal Standby Assistance Transfer Goal Standby Assistance,Front Wheeled Walker Gait Goal Standby Assistance,Front Wheel Walker Gait Distance 150 Other Goals up/down 3 steps without railing Days to Meet Goals 5 Frequency of Treatment Frequency Of Treatment Twice a Day Treatment Plan Physical Therapy Treatment Plan Bed Mobility Training,Transfer Training,Gait Training, Therapeutic Exercise,Balance Retraining,Post Op Education, Discharge Planning,Hot or Cold Pack,Neuromuscular Re-ed, Coordination Retraining,Manual Therapy Other Recommendations and Next Treatment review precautions, log roll; Focus practice transfers; assess ambulation with FWW; assess safety on stairs. Recommendations To Nursing Amount of Assist Needed 2 Person Assist Discharge Recommendations PT Discharge Recommendations Home with Assistance,Home Health,SNF Rehab Transportation Needs at Discharge Private Vehicle
--- NOTE | 2019-11-01 15:21 | PC.NURSE ---
patient overall VSS stable, BP much improved; did have some orthostatic BP Changes w/sitting to standing, c/o of minor dizziness w/ movement. Adequate UOP. PRN vistaril administered prior to activity. Post activity patient reporting pain LL back area 02/11 ; .2mg PRN dilaudid adminstered w/adequate pain relief. Dressing to incision saturated w/serosanguineous drainage dressing changed @1130 and by 1330 dressing was once again saturated w/bloody drainage; Discussed w/PA and dressing changed w/PA at bedside; plan for Brenda to be placed this afternoon. Report to evening RN.
[2019-11-01] MEDS: HYDROCODONE/ACET 5/325 TABLET 1 TAB PO (15:33)
--- NOTE | 2019-11-01 17:27 | PM.PN.1 ---
Subjective Subjective Date Patient Seen: 11/01/19 Interval history: Contacted by nursing staff over concerns of drainage from the wound. Dressing was removed, slow active drainage from both incisions with broken suture at midline of right sided incision. Ends of sutures were steri-stripped in place and 3 carlos placed in gap between suture ends. Repeat H/H ordered for tomorrow AM. Exam Vital Signs (past 8 hours): - 11/01/19 10:13 11/01/19 10:15 11/01/19 10:16 Temperature Pulse Rate 63 Respiratory Rate Blood Pressure 114/68 Pulse Oximetry 93 86 L 11/01/19 11:02 11/01/19 11:03 11/01/19 12:00 Temperature 97.7 F Pulse Rate 66 61 Respiratory Rate 18 16 Blood Pressure 129/88 Pulse Oximetry 93 95 96 11/01/19 15:59 Temperature 98.7 F Pulse Rate 71 Respiratory Rate 20 Blood Pressure 131/57 L Pulse Oximetry 93 Oxygen Delivery Method Room Air Oxygen Flow Rate 2 Objective Labs Result Diagrams: 11/01/19 06:55 11/01/19 06:55 Labs: Laboratory Results - last 24 hr 11/01/19 11/01/19 06:55 06:55 Hgb 10.4 L Hct 31.9 L Sodium 136 L Potassium 4.4 Chloride 104 Carbon Dioxide 26 BUN 26 H Creatinine 1.10 Estimated GFR > 60.0 BUN/Creatinine Ratio 23.6 H Glucose 116 H Calcium 8.0 L
[2019-11-01] MEDS: BACLOFEN 10 MG TABLET 40 MG PO (18:12)
[2019-11-01] MEDS: SENNOSIDES 8.6 MG TABLET 17.2 MG PO (20:25)
[2019-11-01] MEDS: clonazePAM 0.5 MG TABLET PO (20:25)
[2019-11-01] MEDS: GABAPENTIN 600 MG TABLET PO (20:26)
[2019-11-01] MEDS: AMLODIPINE 5 MG TABLET PO (20:26)
[2019-11-02] VITALS (10 sets, daily range): BP systolic 112–151; BP diastolic 46–66; PULSE 63–75; RESP 15–18; TEMP 36.4–37.6; O2SAT 90–97
--- NOTE | 2019-11-02 07:42 | PC.NURSE ---
Patient had saturated dressing change at 0001. At 0300 dressing was outlined with fresh drainage on approx 1/3 of double dressing. At 0600 dressing was saturated and changed.
[2019-11-02 07:48] LABS: Hematocrit 30.3 % (41-53); Hemoglobin 9.9 g/dL (13.5-17.5)
--- NOTE | 2019-11-02 08:29 | PM.PNPO.1 ---
Subjective Subjective Date Patient Seen: 11/02/19 Time Patient Seen: 08:29 Interval history: Patient's pain is moderate to severe. Denies fever chills. No nausea vomiting Exam Vital Signs (past 8 hours): - 11/02/19 03:24 Temperature 98.2 F Pulse Rate 73 Respiratory Rate 18 Blood Pressure 112/46 L Pulse Oximetry 94 Oxygen Delivery Method Room Air Oxygen Flow Rate 2 Narrative Exam Narrative: 69-year-old male resting comfortably in bed in no apparent distress. Motor functions intact bilateral lower extremities. Sensation grossly intact to light touch bilateral lower extremities. Both legs are warm and dry. The 4x4s are moist. There is scant serosanguineous drainage coming from the mid right incision. Objective Labs Result Diagrams: 11/02/19 07:40 11/01/19 06:55 Labs: Laboratory Results - last 24 hr 11/02/19 07:40 Hgb 9.9 L Hct 30.3 L Assessment & Plan Post-op Postoperative Procedures: Procedures Operation Date: 08/30/19 07:45 <No data on this case meets the specified criteria> Operation Date: 10/31/19 07:45 Actual Procedures Side Surgeon p L2-S1 laminectomies, L5-S1 instrumented fusion with bone graft Tc Cho MD Mobilize with physical therapy. Continue to work on pain control. Monitor drainage. Physical therapy yesterday was recommending home with assistance versus home health or [facility] facility. Likely discharge home tomorrow.
[2019-11-02] MEDS: DOCUSATE 100 MG CAPSULE PO ×2 (08:54→22:07)
[2019-11-02] MEDS: BACLOFEN 10 MG TABLET 20 MG PO (08:54)
[2019-11-02] MEDS: METFORMIN HCL 500 MG TABLET 1000 MG PO ×2 (08:54→17:46)
[2019-11-02] MEDS: ATORVASTATIN 20 MG TABLET PO (08:54)
[2019-11-02] MEDS: TAMSULOSIN 0.4 MG CAPSULE 0.8 MG PO (08:54)
[2019-11-02] MEDS: CELECOXIB 200 MG CAPSULE PO ×2 (08:55→22:07)
[2019-11-02] MEDS: FERROUS SULFATE 325 MG TABLET 650 MG PO (08:55)
[2019-11-02] MEDS: DULOXETINE 30 MG CAPSULE PO (08:55)
[2019-11-02] MEDS: AMLODIPINE 5 MG TABLET PO ×2 (08:55→22:07)
--- NOTE | 2019-11-02 11:02 | PT.IPTN ---
Current Diagnoses Spinal stenosis, lumbar region with neurogenic claudication (10/31/19) Ankylosing hyperostosis [[place]], site unspecified (10/31/19) Surgery Performed Operation Date: 08/30/19 07:45 <No data on this case meets the specified criteria> Operation Date: 10/31/19 07:45 Actual Procedures p L2-S1 laminectomies, L5-S1 instrumented fusion with bone graft - Tc Cho MD Physical Therapy Treatment Note M2 PT-IP Current Condition Start: 10/31/19 16:34 Freq: NEEDED Status: Active Protocol: Document 10/31/19 17:26 AW (Rec: 10/31/19 17:54 AW [id number]) Physical Therapy Current Condition Current Condition Evaluation Date 10/31/19 Treatment Diagnosis L2-S1 lami, L5-S1 fusion, impaired mobility Onset Date 10/31/19 Precautions Lumbar Precautions Log Roll,No Twisting,Limit Bending,Lifting Restriction of 10 lbs,Gait Belt above Incisional Area Weight Bearing Status Weight Bearing Status Full Weight Bearing M3 PT-IP Subjective Start: 10/31/19 16:34 Freq: NEEDED Status: Active Protocol: Document 11/02/19 10:38 KS (Rec: 11/02/19 12:40 KS [id number]) Subjective Physical Therapy Visit Type Type Treatment Note Visit Start Time 10:38 Visit Stop Time 11:02 Total Visit Minutes 24 Number of DRY HOUSE OPERATOR Visits 3 Physical Therapy Visit Comments Patient Comments Pt agreeable to work with therapy. Therapy Pain Assessment Pain When Pain Assessed During Mobility Pain Present Pain Present Denied Pain M4 PT-IP Mobility and Gait Start: 10/31/19 16:34 Freq: NEEDED Status: Active Protocol: Document 11/02/19 10:38 KS (Rec: 11/02/19 12:40 KS [id number]) PT-Bed Mobility Assessment Rolling Type of Rolling Log Rolling,Roll to Right Level of Assist Minimal Assistance,1 Person Assistance Supine to Sit Supine to Sit Minimal Assistance,1 Person Assistance Scooting Scooting to Edge of Bed Moderate Assistance PT-Transfer Assessment Sit to and From Stand Sit to and from Stand Contact Guard Assistance,Use of Upper Extremities Equipment Transfer Assistive Device Gait Belt,Front Wheeled Walker Orthotic/Prosthetic Devices or Brace: No Transfers Transfer Destination Chair Transfer Technique pt ambulated w/ FWW. Transfer Ability Level of Assist Contact Guard Assistance, Minimal Assistance,1 Person Assistance Comments Mobility Comments Pt was in bed w/ HOB elevated upon arrival from therapy. Pt said he was tired but agreed to trying to walk to chair. Pt able to recall 3/3 precautions. Pts BP in sup was 146/55 DC 64 and O2: 94% on 2L. Pt performed logroll to R side w/ Min A and sidelying to sit Min A for guidance of trunk. Once sitting, pt needed cues and Mod A for scooting to EOB. Once EOB pts BP reassessed at 134/57 and O2 92 %. Pt then stood EOB w/ CGA and BP 141/63. He then ambulated w/ FWW and CGA to Min A for FWW management. Pts O2 dropped into mid to high 80s during ambulation but he denied SOB or dizziness. Pt then approached chair to sit down and demonstrated correct use of turning FWW and bring back all the way to chair, min cues for reaching back for arm rests CGA for stand<>sit. Pts BP 132/89 reclined in chair O2 94%. Pt left in chair w/ all needs in reach. Gait Assessment Gait Gait Assistance Required: Contact Guard Assist,Minimum Assistance,1 Person Assist Distance (Feet) 20 Able to Maintain Weight Bearing Status Yes During Gait Assistive Devices Assistive Device Gait Belt,Front Wheeled Walker Orthotic/Prosthetic Devices or Brace: No Gait Deviations General Gait Pattern Antalgic,Decreased Stride Length,Decreased Feet Clearance,Flexed Trunk,Step-to Gait Factors Limiting Gait Function Factors Limiting Gait Function Decreased Activity Tolerance, Decreased Strength,Difficulty Following Directions,Limited Range of Motion,Poor Safety Awareness Comments Gait Comments Pt ambulated w/ FWW and CGA to Min A for FWW management and cues for breathing and upright posture. Pts O2 dropped to mid to high 80s during ambulation, but he denied shortness of breath. Pts O2 quickly recovered to 94% in <1 min after sitting in chair and cues for deep breaths. Stair Climbing Assessment Comments Stair Climbing Comments Not assessed. Not safe at this time. PT-Balance Assessment Sitting Balance and Reactions Static Sitting Balance Ability Good Standing Balance and Reactions Static Standing Balance Ability Fair Dynamic Standing Balance Ability Fair Device Used FWW M5 PT-IP Objective Assessments Start: 10/31/19 16:34 Freq: NEEDED Status: Active Protocol: Document 10/31/19 17:26 AW (Rec: 10/31/19 17:54 AW [id number]) Orientation Orientation/Cognition Level of Alertness Confusional State Orientation Name,Month,Place,Situation Language Function Ability No Deficits Noted Safety Awareness Decreased Safety Awareness Gross Range of Motion Lower Extremity ROM Assessment Bilaterally Impaired Strength Lower Extremity Strength Assessment Bilaterally Impaired Comments Strength Comments LLE grossly 4/5; RLE grossly 4 -/5 Coordination Assessment Gross Coordination Gross Coordination WNL Sensation Assessment Sensation Gross Sensation WNL M6 PT-IP Treatment Start: 10/31/19 16:34 Freq: NEEDED Status: Active Protocol: Document 11/02/19 10:38 KS (Rec: 11/02/19 12:40 KS [id number]) Physical Therapy Treatment Education Education Provided Precautions,Post-Op Packet, Safety M7 PT-IP Assessment and Plan Start: 10/31/19 16:34 Freq: NEEDED Status: Active Protocol: Document 11/02/19 10:38 KS (Rec: 11/02/19 12:40 KS [id number]) PT Summary Assessment and Plan Potential Rehabilitation Potential Good Status of Condition at Evaluation Evolving Summary Impairments ROM,Strength,Balance,Bed Mobility,Transfers,Gait, Activity Tolerance Assessment Summary Pt was willing to ambulate today. Min A for logroll and sidelying sit EOB, Mod A for scooting to EOB, CGA for sit<> stand from bed and stand<>sit in chair. CGA to Min A during ambulation, cues for FWW management and posture. Pts BP stable this treatment, but O2 levels dropped to mid 80s w/ ambulation, denied SOB but appeared fatigue. Pt will benefit from IPR to assess mobility and ambulation deficits and improve his level of function. Goals Bed Mobility Goal Standby Assistance Transfer Goal Standby Assistance,Front Wheeled Walker Gait Goal Standby Assistance,Front Wheel Walker Gait Distance 150 Other Goals up/down 3 steps without railing Days to Meet Goals 5 Frequency of Treatment Frequency Of Treatment Twice a Day Treatment Plan Physical Therapy Treatment Plan Bed Mobility Training,Transfer Training,Gait Training, Therapeutic Exercise,Balance Retraining,Post Op Education, Discharge Planning,Hot or Cold Pack,Neuromuscular Re-ed, Coordination Retraining,Manual Therapy Other Recommendations and Next Treatment review precautions, log roll; Focus practice transfers; assess ambulation with FWW; assess safety on stairs. Recommendations To Nursing Amount of Assist Needed 2 Person Assist Discharge Recommendations PT Discharge Recommendations Home with 24/7 Assist,SNF Rehab,Acute Rehab Other Discharge Recommendations Acute rehab vs Home at this time. Transportation Needs at Discharge Wheelchair/Cabulance
--- NOTE | 2019-11-02 12:22 | OT.IP.TRT ---
Current Diagnoses Spinal stenosis, lumbar region with neurogenic claudication (10/31/19) Ankylosing hyperostosis [[place]], site unspecified (10/31/19) Surgery Performed Operation Date: 08/30/19 07:45 <No data on this case meets the specified criteria> Operation Date: 10/31/19 07:45 Actual Procedures p L2-S1 laminectomies, L5-S1 instrumented fusion with bone graft - Tc Cho MD Occupational Therapy Treatment Note M2 OT-IP Current Condition Start: 11/01/19 12:42 Freq: Status: Active Protocol: Document 11/01/19 12:42 CGR (Rec: 11/01/19 12:52 CGR [id number]) Occupational Therapy Current Condition Current Condition Evaluation Date 11/01/19 Treatment Diagnosis L2-S1 TLIF with cage Diagnosis Onset Date 10/31/19 Post Operative Precautions Lumbar Precautions Log Roll,No Twisting,Limit Bending,Lifting Restriction of 10 lbs,Gait Belt above Incisional Area M3 OT- IP Subjective and Pain Start: 11/01/19 12:42 Freq: Status: Active Protocol: Document 11/02/19 17:47 CGR (Rec: 11/02/19 18:01 CGR [id number]) OT- Subjective Occupational Therapy Visit Type Type Treatment Note Visit Start Time 11:52 Visit Stop Time 12:22 Total Visit Minutes 30 Notes Pt's present throughout session. OT Pain Assessment Pain When Pain Assessed At Rest Pain Present Pain Present Pain Reported Location lower back Intensity 2 Scale Used Numeric (1 - 10) Management Techniques Modification of Treatment, Timing of Activity with Medications M4 OT- IP ADL's Start: 11/01/19 12:42 Freq: Status: Active Protocol: Document 11/02/19 17:47 CGR (Rec: 11/02/19 18:01 CGR [id number]) OT LXV-[id number]-Rvacpkr General Evaluation Self-Feeding Ability Standby Assistance Comments OT Self-Feeding Comments Pt needed assist for set up for lunch. OT ADL-Grooming General Evaluation Grooming Ability Minimal Assistance Areas Needing Assistance Retrieving/Set-up of Grooming Items,Combing/Brushing Hair, Face Washing Comments OT Grooming Comments Standing at sink OT ADL-Oral Care General Eval Oral Care Ability Standby Assistance Areas of Assistance Retrieving/Set-Up of Items Comments Oral Care Comments Pt performed standing at sink OT ADL-Dressing Comments OT Dressing Comments Not performed in this session. OT ADL-Toileting Comments OT Toileting Comments Pt with rowe. OT ADL-Bathing Comments OT Bathing Comments Not performed in this session. M5 OT- IP IADL's Start: 11/01/19 12:42 Freq: Status: Active Protocol: Document 11/01/19 12:42 CGR (Rec: 11/01/19 12:52 CGR [id number]) OT-Instrumental Activities of Daily Living Deficits IADL Deficits Identified Deficits Home Safety Awareness Awareness of Need for Assistance at Home Good Awareness Ability to Problem Solve Emergency Able to Problem Solve Situations Home Safety Comments Pt will need review of back precautions. Medication Management Medication Management Caregiver Provides Supervision Money Management Money Management Caregiver Provides Supervision Meal Preparation Meal Preparation Caregiver Provides Supervision Food Assembler Food Assembler Caregiver Provides Assist Driving Driving Comments Pt understand that he can not drive again till cleared by MD . M6 OT- IP Functional Cognition Start: 11/01/19 12:42 Freq: Status: Active Protocol: Document 11/01/19 12:42 CGR (Rec: 11/01/19 12:52 CGR [id number]) Cognitive Factors Limiting Selfcare Function Cognitive Ability Level of Alertness Alert Patient Orientation Name,Age,Birthday,Month,Date, Year,Day of Week,Place, Situation Attention Span Ability Capable of Focused Attention, Capable of Sustained Attention Ability to Follow Commands Able to Follow Multi-Step Commands Memory Description No Deficits Noted Safety Awareness No Deficits Noted Problem Solving Ability No deficits Noted Executive Function Ability No Deficits Noted Abstract Thinking Ability No Deficits Noted OT- Vision and Hearing OT- Hearing Assessment OT- Hearing Assessment WFL OT- Vision Assessment Visual Acuity No Vision Aides At Hospital Visual Attentiveness WFL Occular Pursuits WFL Visual Convergence WFL Visual [place] WFL Vision Assessment Comments Pt uses glasses for driving mostly at night. M7 OT- IP Mobility and Balance Start: 11/01/19 12:42 Freq: Status: Active Protocol: Document 11/02/19 17:47 CGR (Rec: 11/02/19 18:01 CGR [id number]) OT-Transfer Assessment Sit to and From Stand Sit to and from Stand Contact Guard Assistance, Minimal Assistance Transfers Transfer Ability Minimal Assistance Technique Transfer Destination Chair Transfer Technique Stand Step Pivot Devices Transfer Assistive Devices Gait Belt,Front Wheeled Walker Comments Mobility Comments Pt ambulated to sink and returned to chair. OT- Balance Assessment Sitting Balance and Reactions Static Sitting Balance Ability Good Dynamic Sitting Balance Ability Fair M8 OT- IP Objective Assessments Start: 11/01/19 12:42 Freq: Status: Active Protocol: Document 11/01/19 12:42 CGR (Rec: 11/01/19 12:52 CGR [id number]) OT Gross Range of Motion Upper Extremity Range of Motion Assessment Within Functional Limits ROM Impairments shlds 0-90 but functional OT Strength Upper Extremity Strength Assessment Within Functional Limits Comments Strength Comments grossly 4/5 or greater OT- Coordination Assessment Upper Extremity Finger to Nose Test Within Functional Limits Finger Tapping Test Within Functional Limits OT-Muscle Tone Assessment Muscle Tone WNL Yes OT Sensation Assessment Edema Edema Absent M9 OT- IP Assessment and Plan Start: 11/01/19 12:42 Freq: Status: Active Protocol: Document 11/02/19 17:47 CGR (Rec: 11/02/19 18:01 CGR [id number]) OT Summary Assessment and Plan Potential Rehabilitation Potential Good Analytic Complexity at Evaluation Low Summary OT Impairments Pain,Range of Motion,Balance, Functional Mobility,Grooming, Dressing,Toileting,Bathing, Toilet Transfers,Shower Transfers,Activity Tolerance Progress Towards Goals Slow Progress due to Pain Assessment Summary Pt presents s/p back surgery and is progressing slowly with endurance and functional mobility. Pt with limited endurance to perform ADLs standing at sink today and declined further activity. Discussed SNF with pt and given pt's poor endurance and mobility at this time and notified CM of current recommendation for SNF. Goals Grooming Goal Independent Dressing Goal Independent,Electrical Service Technician,Sock Aid Toileting Goal Independent Bathing Goal Independent Toilet Transfer Goal Independent Shower Transfer Goal Independent Days to Meet Goals 5 Frequency of Treatment Frequency Of Treatment Once a Day Treatment Plan OT Treatment Plan ADL Training,Functional Mobility,Patient/Family Education,Discharge Planning Other Treatment Recommendations and Next Shower if MD approves and ADLs Treatment Focus standing, LB dressing. Discharge Recommendations OT Discharge Recommendations SNF Rehab Other Discharge Recommendations Pt is progressing slowly. New recommendation is for d/c to SNF Home Equipment Needs went to get shower stool. Transportation Needs at Discharge Private Vehicle
[2019-11-02] MEDS: lisinopriL 20 MG TABLET PO (13:07)
[2019-11-02] MEDS: HYDROCODONE/ACET 5/325 TABLET 1 TAB PO ×2 (13:10→17:46)
[2019-11-02] MEDS: INSULIN ASPART 100 UNIT/ML INSULN PEN SUBCUT (13:11)
--- NOTE | 2019-11-02 14:25 | PC.NURSE ---
VSS, BP stable, patient alert and orientedx4, slightly drowsy early in the am. Patient's dressing completely saturated; changed w/Dr. Cho @ bedside and aware of drainage, also noted Left side of lower back significantly firm to touch verses left lower back which is soft to touch; continue to monitor and no new orders as of this note. PRN [place] administered with good pain relief.
--- NOTE | 2019-11-02 15:02 | PT.IPTN ---
Current Diagnoses Spinal stenosis, lumbar region with neurogenic claudication (10/31/19) Ankylosing hyperostosis [[place]], site unspecified (10/31/19) Surgery Performed Operation Date: 08/30/19 07:45 <No data on this case meets the specified criteria> Operation Date: 10/31/19 07:45 Actual Procedures p L2-S1 laminectomies, L5-S1 instrumented fusion with bone graft - Tc Cho MD Physical Therapy Treatment Note M2 PT-IP Current Condition Start: 10/31/19 16:34 Freq: NEEDED Status: Active Protocol: Document 10/31/19 17:26 AW (Rec: 10/31/19 17:54 AW [id number]) Physical Therapy Current Condition Current Condition Evaluation Date 10/31/19 Treatment Diagnosis L2-S1 lami, L5-S1 fusion, impaired mobility Onset Date 10/31/19 Precautions Lumbar Precautions Log Roll,No Twisting,Limit Bending,Lifting Restriction of 10 lbs,Gait Belt above Incisional Area Weight Bearing Status Weight Bearing Status Full Weight Bearing M3 PT-IP Subjective Start: 10/31/19 16:34 Freq: NEEDED Status: Active Protocol: Document 11/02/19 14:42 KS (Rec: 11/02/19 16:10 KS [id number]) Subjective Physical Therapy Visit Type Type Treatment Note Visit Start Time 14:42 Visit Stop Time 15:02 Total Visit Minutes 20 Number of PLANTING MATERIAL CARRIER Visits 4 Physical Therapy Visit Comments Patient Comments Pt agreeable to work with therapy. Therapy Pain Assessment Pain When Pain Assessed During Mobility Pain Present Pain Present Denied Pain M4 PT-IP Mobility and Gait Start: 10/31/19 16:34 Freq: NEEDED Status: Active Protocol: Document 11/02/19 14:42 KS (Rec: 11/02/19 16:10 KS [id number]) PT-Bed Mobility Assessment Rolling Type of Rolling Log Rolling Level of Assist Minimal Assistance,1 Person Assistance Sit to Supine Sit to Supine Minimal Assistance,1 Person Assistance,Head of Bed Elevated Scooting Scooting to Edge of Bed Contact Guard Assistance PT-Transfer Assessment Sit to and From Stand Sit to and from Stand Minimal Assistance,1 Person Assistance,Use of Upper Extremities Equipment Transfer Assistive Device Gait Belt,Front Wheeled Walker Orthotic/Prosthetic Devices or Brace: No Transfers Transfer Destination Bed Transfer Technique pt ambulated w/ FWW. Transfer Ability Level of Assist Minimal Assistance,1 Person Assistance Comments Mobility Comments Pt was sitting in chair upon arrival from therapy. CGA for scooting to edge of chair. Pts BP 135/54 in sitting. Pt then stood from chair w/ Min A and FWW and cues to push up from chair. Pt then completed 2x[address] Pts BP reassessed at 100/52, denied dizziness or light headednes, ambulated ~3 ft to bed w/ FWW and stand<>sit in bed CGA. When pt stood from chair, this PLANTING MATERIAL CARRIER noticed pts dressing and pillow that was behind his back while in chair was saturated. Nursing called. Pt remained balanced sitting EOB for ~6 min while nursing changed his dressing. Pts BP sitting EOB 143/60. O2 >92 throughout treatment. Min A and cues for logroll back into bed and repositioning in bed. Pt left in bed w/ all needs in reach, denied SCDs. Gait Assessment Gait Gait Assistance Required: Contact Guard Assist,Minimum Assistance,1 Person Assist Distance (Feet) 3 Able to Maintain Weight Bearing Status Yes During Gait Assistive Devices Assistive Device Gait Belt,Front Wheeled Walker Orthotic/Prosthetic Devices or Brace: No Gait Deviations General Gait Pattern Antalgic,Decreased Stride Length,Decreased Feet Clearance,Flexed Trunk,Step-to Gait Factors Limiting Gait Function Factors Limiting Gait Function Decreased Activity Tolerance, Decreased Strength,Difficulty Following Directions,Limited Range of Motion,Poor Safety Awareness Comments Gait Comments Please refer to mobility section for details. Stair Climbing Assessment Comments Stair Climbing Comments Not assessed. Not safe at this time. PT-Balance Assessment Sitting Balance and Reactions Static Sitting Balance Ability Good Standing Balance and Reactions Static Standing Balance Ability Fair Dynamic Standing Balance Ability Fair Device Used FWW M5 PT-IP Objective Assessments Start: 10/31/19 16:34 Freq: NEEDED Status: Active Protocol: Document 10/31/19 17:26 AW (Rec: 10/31/19 17:54 AW [id number]) Orientation Orientation/Cognition Level of Alertness Confusional State Orientation Name,Month,Place,Situation Language Function Ability No Deficits Noted Safety Awareness Decreased Safety Awareness Gross Range of Motion Lower Extremity ROM Assessment Bilaterally Impaired Strength Lower Extremity Strength Assessment Bilaterally Impaired Comments Strength Comments LLE grossly 4/5; RLE grossly 4 -/5 Coordination Assessment Gross Coordination Gross Coordination WNL Sensation Assessment Sensation Gross Sensation WNL M6 PT-IP Treatment Start: 10/31/19 16:34 Freq: NEEDED Status: Active Protocol: Document 11/02/19 14:42 KS (Rec: 11/02/19 16:10 KS [id number]) Physical Therapy Treatment Education Education Provided Precautions,Post-Op Packet, Safety Other Treatments Other Treatment Performed Discussed Acute Rehab w/ pt and pts . M7 PT-IP Assessment and Plan Start: 10/31/19 16:34 Freq: NEEDED Status: Active Protocol: Document 11/02/19 14:42 KS (Rec: 11/02/19 16:10 KS [id number]) PT Summary Assessment and Plan Potential Rehabilitation Potential Good Status of Condition at Evaluation Evolving Summary Impairments ROM,Strength,Balance,Bed Mobility,Transfers,Gait, Activity Tolerance Assessment Summary Pt required Min A for logroll and sit<>stand, CGA for scooting and stand<>sit back in bed. Able to recall 3/3 precautions. Pt had drop in BP from 135/54 to 100/52 after sit<>stand and marching in place. BP 143/60 after sitting , nursing changed pts dressing while pt sat EOB. Discussed Acute Rehab w/ pt and pts (who arrived at end of treatment) pt and are very hesistant towards acute rehab, but at this point pt is not safe to return home and has low tolerance for activity . Goals Bed Mobility Goal Standby Assistance Transfer Goal Standby Assistance,Front Wheeled Walker Gait Goal Standby Assistance,Front Wheel Walker Gait Distance 150 Other Goals up/down 3 steps without railing Days to Meet Goals 5 Frequency of Treatment Frequency Of Treatment Twice a Day Treatment Plan Physical Therapy Treatment Plan Bed Mobility Training,Transfer Training,Gait Training, Therapeutic Exercise,Balance Retraining,Post Op Education, Discharge Planning,Hot or Cold Pack,Neuromuscular Re-ed, Coordination Retraining,Manual Therapy Recommendations To Nursing Amount of Assist Needed 2 Person Assist Discharge Recommendations PT Discharge Recommendations Home with 24/ Assist,SNF Rehab,Acute Rehab Other Discharge Recommendations Acute rehab vs Home at this time. Transportation Needs at Discharge Wheelchair/Cabulance
[2019-11-02] MEDS: BACLOFEN 10 MG TABLET 40 MG PO (17:46)
[2019-11-02] MEDS: clonazePAM 0.5 MG TABLET PO (22:06)
[2019-11-02] MEDS: HYDROCODONE/ACET 5/325 TABLET 2 TAB PO (22:06)
[2019-11-02] MEDS: SENNOSIDES 8.6 MG TABLET 17.2 MG PO (22:06)
[2019-11-02] MEDS: GABAPENTIN 600 MG TABLET PO (22:07)
--- NOTE | 2019-11-02 22:51 | PC.NURSE ---
Evening Shift Report received, care assumed. Kristin dc'd and dressing changed by day shift RN. Voided 450 ml approx. 1830. Pt. A&Ox3. Reports back pain. Treated with meds. Pt. refused ice, repositioning, and getting OOB as pain management measures. Reminded to use IS throughout shift. Visualized IS performance twice. Oxygen requirements increased to 3LNC, as oxygen sats dropped to 88% at rest. Refused SCD's; education provided. Pt. got up to bathroom; otherwise declined to ambulate or sit up in chair.
[2019-11-03] VITALS (8 sets, daily range): BP systolic 123–146; BP diastolic 56–72; PULSE 57–76; RESP 16–20; TEMP 36.3–37; O2SAT 86–95
--- NOTE | 2019-11-03 05:13 | PC.NURSE ---
Dressing cleaned and redressed at 0500. Serosang drainage.
--- NOTE | 2019-11-03 08:19 | PM.PNPO.1 ---
Subjective Subjective Date Patient Seen: 11/03/19 Time Patient Seen: 08:19 Interval history: He is doing well. Pain under good control. Mobilizing well. His dressing had to be changed last night as he had some moderate drainage. Exam Vital Signs (past 8 hours): - 11/03/19 05:41 Temperature 98.6 F Pulse Rate 58 L Respiratory Rate 16 Blood Pressure 123/56 L Pulse Oximetry 93 Oxygen Delivery Method Nasal Cannula Oxygen Flow Rate 3 Const Orientation: alert and oriented x3 Back/Spine/Pelvis Other: CDI. 5/5 motor both lower extremities Objective Labs Result Diagrams: 11/02/19 07:40 11/01/19 06:55 Assessment & Plan Post-op Postoperative Procedures: Procedures Operation Date: 08/30/19 07:45 <No data on this case meets the specified criteria> Operation Date: 10/31/19 07:45 Actual Procedures Side Surgeon p L2-S1 laminectomies, L5-S1 instrumented fusion with bone graft Tc Cho MD He is doing well. Mobilize with therapy. Plan to discharge home today. There is no current drainage but I explained to him that if he does start soaking through his dressing that he should go ahead and change it. Call up the office if this does not taper back over the next 1-2 days.
--- NOTE | 2019-11-03 08:20 | P.DS_ITS ---
History of Present Illness History of Present Illness Date Patient Seen: 11/03/19 Time Patient Seen: 08:20 Chief complaint: Translaminar Interbody Fusion/Laminotomy Narrative: 69-year-old male with pain in the back and radiation down the right leg when ambulating. He has been through physical therapy and epidural injections without relief. He had been scheduled for surgery 2 months ago but in his preoperative appointment was found to have new onset diabetes and this had to be stabilized. He was to be scheduled again a month ago but his was ill and could not take care of him. However this point she is mobile and can help take care of him and he was scheduled for surgery. Discharge Providers Provider Date of admission: 10/31/19 05:59 Discharge Date: 11/03/19 Primary care physician: Elton Dang MD Consults: 10/31/19 13:36 Consult to Occupational Therapy Evaluate & Treat Comment: Physician Instructions: Evaluate and treat Consult to Physical Therapy Evaluate & Treat Comment: Physician Instructions: Evaluate and Treat Discharge provider: Tc Cho MD Summary Hospital Course Discharge Diagnosis: Lumbar stenosis with radiculopathy Hospital Course: He was brought to the operating room on 10/31/19 where he underwent a L2 through S1 laminectomy and L5-S1 TLIF. Postoperatively he slowly mobilized with physical therapy until he was independent by day of discharge. He had some heavy drainage at 1st and this gradually began slowing down but still had some drainage the night prior to discharge. He did have a suture break when he was checked the 1st postoperative day and this was reinforced with a few carlos. He had decreased oxygen saturation in the high 80s overnight when he was sleepi ng but during the daytime he was up and breathing well and normal oxygen saturation, this improved by date of discharge. Status at Discharge Cognitive/behavioral status at discharge: oriented Functional status at discharge: uses cane/walker Overall status at discharge: patient is progressing back to baseline Exam Vital Signs (past 8 hours): - 11/03/19 05:41 Temperature 98.6 F Pulse Rate 58 L Respiratory Rate 16 Blood Pressure 123/56 L Pulse Oximetry 93 Oxygen Delivery Method Nasal Cannula Oxygen Flow Rate 3 Const Orientation: alert and oriented x3 Back/Spine/Pelvis Other: CDI. 5/5 motor both lower extremities Objective Labs Result Diagrams: 11/02/19 07:40 11/01/19 06:55 Discharge Plan Discharge Plan Patient Disposition: Home Discharge comment: Follow-up 1.5 weeks Do not restart Plavix until 11/05/19 Discharge orders & Medications Prescriptions: New docusate sodium [DOK] 100 mg Capsule 100 mg PO BID PRN (Reason: constipation) Qty: 30 RF: 0 hydrocodone-acetaminophen 5-325 mg Tablet 1 tab PO Q4HR PRN (Reason: Pain, Moderate (4-6)) Qty: 25 RF: 0 hydroxyzine pamoate 25 mg Capsule 25 mg PO Q4HR PRN (Reason: spasms) Qty: 20 RF: 0 Continued aspirin 325 mg Tablet 325 mg PO DAILY Qty: 0 RF: 0 ferrous sulfate [iron] 325 mg (65 mg iron) Tablet 650 mg PO DAILY Qty: 0 RF: 0 albuterol sulfate [Ventolin HFA] 90 mcg/actuation HFA aerosol inhaler 1 puff INHALATION PRN PRN (Reason: bronchospasm) Qty: 18 RF: 3 atorvastatin [Lipitor] 20 mg tablet 20 mg PO QDAY Qty: 90 RF: 3 lisinopril 20 mg tablet 20 mg PO QDAY Qty: 90 RF: 3 baclofen 20 mg tablet See Rx Instructions .ROUTE .COMPLEX Qty: 270 RF: 3 clonazepam 1 mg tablet 0.5 mg PO HS Qty: 30 RF: 3 bupropion HCl 150 mg tablet sustained-release 12 hr See Rx Instructions .ROUTE .COMPLEX Qty: 60 RF: 0 amlodipine 5 mg Tablet 5 mg PO BID RF: 0 duloxetine 30 mg Capsule,Delayed Release(Dr/Ec) 30 mg PO DAILY RF: 0 metformin [Glucophage] 500 mg tablet 1,000 mg PO BIDCC RF: 0 clopidogrel 75 mg tablet 75 mg PO DAILY RF: 0 tamsulosin [Flomax] 0.4 mg capsule 0.12 mg PO QDAY RF: 0 Qvar RediHaler 80 mcg/actuation Hfa Aerosol Breath Activated 1 inh INHALATION BID PRN (Reason: Shortness Of Breath) RF: 0 clopidogrel [Plavix] 75 mg Tablet 75 mg PO DAILY RF: 0 gabapentin 600 mg Tablet 600 mg PO BEDTIME RF: 0 Follow up/Referrals: Elton Dang MD [Primary Care Provider] - Discharge Health Status Multidrug resistant organism: No MDRO Diet/Activity/Treatments Diet: Carb-consistent/Diabetic Activity: limited BLT 10 lbs max lift Skin/Wound/Dressing Care Report to your healthcare provider any signs of infection, such as:: chills, fever, night sweats, increased pain, unusual drainage and unusual redness Dressing: may change and shower as needed after 11/05/19 May change dressing if there is increased drainage. If the drainage does not resolve in the next 1-2 days, contact the office. Visit Report/Discharge Packet Instructions: DI for Prescription Opioid Use, DI for Transforaminal Lumbar Interbody Fusion Stand Alone Forms: Surgery Discharge Discharge Data Primary Care Provider: Elton Dang
--- NOTE | 2019-11-03 09:14 | CM.DPC ---
Addendum entered by Terri Hylton R.N. 11/03/19 11:24: It is noted that patient is not discharging today, secondary to needing to be on oxygen. Patient is having a chest xray today. Called [facility] and gave them an update that patient will be staying another day. Original Note: DCP Cont: Patient is discharging home today. Had Dr. Cho sign face to face for P.T/O.T. Discussed home health services with patient and asked him if he had any preference of agencies, which he does not. Sent referral to [facility], and called and confirmed that they do accept [employer]. Faxed them face to face, face sheet, discharge summary, and recent P.T. note. P: Patient is to discharge home today with [facility] P.T/O.T. Terri Hylton RN/[employer]
[2019-11-03] MEDS: ASPIRIN 325 MG TABLET PO (09:22)
[2019-11-03] MEDS: METFORMIN HCL 500 MG TABLET 1000 MG PO ×2 (09:22→16:49)
[2019-11-03] MEDS: CELECOXIB 200 MG CAPSULE PO ×2 (09:22→21:48)
[2019-11-03] MEDS: DULOXETINE 30 MG CAPSULE PO (09:23)
[2019-11-03] MEDS: ATORVASTATIN 20 MG TABLET PO (09:23)
[2019-11-03] MEDS: FERROUS SULFATE 325 MG TABLET 650 MG PO (09:23)
[2019-11-03] MEDS: BACLOFEN 10 MG TABLET 20 MG PO (09:23)
[2019-11-03] MEDS: lisinopriL 20 MG TABLET PO (09:23)
[2019-11-03] MEDS: AMLODIPINE 5 MG TABLET PO ×2 (09:23→21:48)
[2019-11-03] MEDS: TAMSULOSIN 0.4 MG CAPSULE 0.8 MG PO (09:23)
[2019-11-03] MEDS: DOCUSATE 100 MG CAPSULE PO ×2 (09:23→21:49)
--- NOTE | 2019-11-03 10:07 | DI.RAD.S_ITS ---
PROCEDURE: XR CHEST 2V INDICATIONS: needs oxygen TECHNIQUE: 2 views of the chest were acquired. COMPARISON: [facility], , CHEST 2 VIEW, 11/08/2016, 16:07. FINDINGS: Surgical changes and devices: None. Lungs and pleura: There is increased bilateral pulmonary vascular prominence consistent with pulmonary edema. No pleural effusions or pneumothorax. Mediastinum: Mediastinal contours are unchanged. Heart size is normal. Bones and chest wall: No suspicious bony abnormalities. Soft tissues appear unremarkable. IMPRESSION: 1. Pulmonary edema demonstrated, which may be due to cardiogenic or non-cardiogenic etiologies such as atypical infection. Dictated by: Leonides Sanchez M.D. on 11/03/2019 at 9:41 Approved by: Leonides Sanchez M.D. on 11/03/2019 at 9:43
--- NOTE | 2019-11-03 11:23 | PC.NURSE ---
Day Shift pt on 3L O2 via NC at start of shift, sats 95%. Turned down to 2L O2, sats down to 91-93%. turned off O2 per MD request and pt seemed to hold sats 88-92%. originally wrote d/c orders. After about 20 min on RA, observed pt sats down to 82-84% on RA. Encouraged pt to take deep breaths and he was able to get sats up to 92-94%. Unfortunately, pt continued to desat as soon as he stopped focusing on his breathing. He was up in the chair at this time. Notified Dr Cho of decreased O2 sats, order for 2V CXR which was obtained. Placed pt back on 2L O2. Notified MD of results. Recommend to consult with RT to determine if albuterol nebs will be helpful. Pt resting in bed, sats on 2L around 95% while resting. Decreased O2 to 1L. sats low to mid 90's. will continue to monitor.
[2019-11-03] MEDS: HYDROCODONE/ACET 5/325 TABLET 1 TAB PO ×2 (14:09→19:22)
--- NOTE | 2019-11-03 15:09 | PT.IPTN ---
Current Diagnoses Spinal stenosis, lumbar region with neurogenic claudication (10/31/19) Ankylosing hyperostosis [Forestier], site unspecified (10/31/19) Surgery Performed Operation Date: 08/30/19 07:45 <No data on this case meets the specified criteria> Operation Date: 10/31/19 07:45 Actual Procedures p L2-S1 laminectomies, L5-S1 instrumented fusion with bone graft - Tc Cho MD Physical Therapy Treatment Note M2 PT-IP Current Condition Start: 10/31/19 16:34 Freq: NEEDED Status: Active Protocol: Document 10/31/19 17:26 AW (Rec: 10/31/19 17:54 AW [id number]) Physical Therapy Current Condition Current Condition Evaluation Date 10/31/19 Treatment Diagnosis L2-S1 lami, L5-S1 fusion, impaired mobility Onset Date 10/31/19 Precautions Lumbar Precautions Log Roll,No Twisting,Limit Bending,Lifting Restriction of 10 lbs,Gait Belt above Incisional Area Weight Bearing Status Weight Bearing Status Full Weight Bearing M3 PT-IP Subjective Start: 10/31/19 16:34 Freq: NEEDED Status: Active Protocol: Document 11/03/19 15:09 CLB (Rec: 11/03/19 16:20 CLB [id number]) Subjective Physical Therapy Visit Type Type Treatment Note Visit Start Time 15:09 Visit Stop Time 15:24 Total Visit Minutes 15 Number of SOLE EDGE INKER MACHINE Visits 5 Physical Therapy Visit Comments Patient Comments Pt had just returned back to bed with assist but was agreeable to ambulate with therapy. Therapy Pain Assessment Pain When Pain Assessed During Mobility Pain Present Pain Present Pain Reported Location lower back Intensity 2 Scale Used Numeric (1 - 10) M4 PT-IP Mobility and Gait Start: 10/31/19 16:34 Freq: NEEDED Status: Active Protocol: Document 11/03/19 15:09 CLB (Rec: 11/03/19 16:20 CLB [id number]) PT-Bed Mobility Assessment Rolling Type of Rolling Log Rolling,Roll to Right Level of Assist Standby Assistance Supine to Sit Supine to Sit Standby Assistance,1 Person Assistance,Head of Bed Elevated Sit to Supine Sit to Supine Minimal Assistance,1 Person Assistance,Head of Bed Elevated Scooting Scooting to Edge of Bed Standby Assistance PT-Transfer Assessment Sit to and From Stand Sit to and from Stand Contact Guard Assistance,1 Person Assistance,Use of Upper Extremities Equipment Transfer Assistive Device Gait Belt,Front Wheeled Walker Transfers Transfer Destination Bed Transfer Technique pt ambulated w/ FWW. Transfer Ability Level of Assist Contact Guard Assistance, Minimal Assistance Comments Mobility Comments Pt able to log roll and sit- stand with SBA, pt requested bed be at slight incline for neck. Pt then sat at EOB SBA. Pt stood from bed CGA. Pt ambulated in chandler to stairs, climbed stairs and returned to room. Pt required cues for breathing during tx. Pt on 1L O2, pt SpO2 during gait 90% and after stairs 88%, O2 increased to 89% after four breaths. Pt required Min A of LEs into bed. Call light and all needs within reach and SCDs on bilateral feet. Gait Assessment Gait Gait Assistance Required: Contact Guard Assist,1 Person Assist Distance (Feet) 100 Able to Maintain Weight Bearing Status Yes During Gait Assistive Devices Assistive Device Gait Belt,Front Wheeled Walker Orthotic/Prosthetic Devices or Brace: No Gait Deviations General Gait Pattern Antalgic,Decreased Stride Length,Decreased Feet Clearance,Flexed Trunk,Step-to Gait Factors Limiting Gait Function Factors Limiting Gait Function Decreased Activity Tolerance, Decreased Strength,Difficulty Following Directions,Limited Range of Motion,Poor Safety Awareness Comments Gait Comments Please refer to mobility section for details. Stair Climbing Assessment Evaluation Level of Assist On Stairs Standby Assistance,Contact Guard Assistance,1 Person Assistance Devices Stair Climbing Assistive Devices Left Railing,Right Railing Technique/Endurance Stair Climbing Direction Ascend and Descend Stair Climbing Technique Step Over Step,Step to Step Number of Steps Climbed 3 Stair Climbing Set # Repetitions (reps) 1 Comments Stair Climbing Comments Pt able to climb stairs with rails but will need to climb stairs w/o rails and FWW. PT-Balance Assessment Sitting Balance and Reactions Static Sitting Balance Ability Good Standing Balance and Reactions Static Standing Balance Ability Fair Dynamic Standing Balance Ability Fair Device Used FWW M5 PT-IP Objective Assessments Start: 10/31/19 16:34 Freq: NEEDED Status: Active Protocol: Document 10/31/19 17:26 AW (Rec: 10/31/19 17:54 AW [id number]) Orientation Orientation/Cognition Level of Alertness Confusional State Orientation Name,Month,Place,Situation Language Function Ability No Deficits Noted Safety Awareness Decreased Safety Awareness Gross Range of Motion Lower Extremity ROM Assessment Bilaterally Impaired Strength Lower Extremity Strength Assessment Bilaterally Impaired Comments Strength Comments LLE grossly 4/5; RLE grossly 4 -/5 Coordination Assessment Gross Coordination Gross Coordination WNL Sensation Assessment Sensation Gross Sensation WNL M6 PT-IP Treatment Start: 10/31/19 16:34 Freq: NEEDED Status: Active Protocol: Document 11/03/19 15:09 CLB (Rec: 11/03/19 16:20 CLB [id number]) Physical Therapy Treatment Education Education Provided Precautions,Safety Other Treatments Other Treatment Performed Pt recalled 3/3 precautions. M7 PT-IP Assessment and Plan Start: 10/31/19 16:34 Freq: NEEDED Status: Active Protocol: Document 11/03/19 15:09 CLB (Rec: 11/03/19 16:20 CLB [id number]) PT Summary Assessment and Plan Potential Rehabilitation Potential Good Status of Condition at Evaluation Evolving Summary Impairments ROM,Strength,Balance,Bed Mobility,Transfers,Gait, Activity Tolerance Assessment Summary Pt improving with all mobility and increased gait distance to ~100ft. Pt able to climb stairs with SBA-CGA. Pt required cues for PLB during activity, Pt on 1L with O2 sats 88-92% during activity. present during tx and is able to appropriately cue and assist pt with stairs and gait . Goals Bed Mobility Goal Standby Assistance Transfer Goal Standby Assistance,Front Wheeled Walker Gait Goal Standby Assistance,Front Wheel Walker Gait Distance 150 Other Goals up/down 3 steps without railing Days to Meet Goals 5 Frequency of Treatment Frequency Of Treatment Twice a Day Treatment Plan Physical Therapy Treatment Plan Bed Mobility Training,Transfer Training,Gait Training, Therapeutic Exercise,Balance Retraining,Post Op Education, Discharge Planning,Hot or Cold Pack,Neuromuscular Re-ed, Coordination Retraining,Manual Therapy Recommendations To Nursing Amount of Assist Needed 2 Person Assist Discharge Recommendations PT Discharge Recommendations Home with 27/03 Assist,SNF Rehab,Acute Rehab Other Discharge Recommendations Acute rehab vs Home at this time. Transportation Needs at Discharge Wheelchair/Cabulance
[2019-11-03] MEDS: BACLOFEN 10 MG TABLET 40 MG PO (16:49)
[2019-11-03] MEDS: GABAPENTIN 600 MG TABLET PO (21:48)
[2019-11-03] MEDS: SENNOSIDES 8.6 MG TABLET 17.2 MG PO (21:48)
[2019-11-03] MEDS: clonazePAM 0.5 MG TABLET PO (21:49)
--- NOTE | 2019-11-03 22:22 | PC.NURSE ---
A&OX4. pt worked with PT and he was 90% on 1L while ambulating, 80's while doing the stairs. pt desat to 87-88% on 1L at sleep, now on 1/5L 90-95%. lower dressing was saturated with serosang fluid. new dressing applied at 1920. 1PA-fww. call light in reach. bed alarm active.
[2019-11-04] VITALS (8 sets, daily range): BP systolic 121–145; BP diastolic 58–65; PULSE 59–68; RESP 18; TEMP 36.2–36.6; O2SAT 88–94
--- NOTE | 2019-11-04 07:48 | PM.PNPO.1 ---
Subjective Subjective Date Patient Seen: 11/04/19 Time Patient Seen: 07:48 Interval history: Doing well pain ann but still desaturating overnight. Exam Vital Signs (past 8 hours): - 11/03/19 23:58 11/04/19 05:00 Temperature 97.7 F 97.2 F L Pulse Rate 71 61 Respiratory Rate 16 18 Blood Pressure 133/57 L 121/62 Pulse Oximetry 93 92 Oxygen Delivery Method Nasal Cannula Oxygen Flow Rate 1.5 Const Orientation: alert and oriented x3 Back/Spine/Pelvis Other: Minimal drainage, has not been changed since yesterday. 5/5 motor both lower extremities Objective Labs Result Diagrams: 11/02/19 07:40 11/01/19 06:55 Assessment & Plan Post-op Postoperative Procedures: Procedures Operation Date: 08/30/19 07:45 <No data on this case meets the specified criteria> Operation Date: 10/31/19 07:45 Actual Procedures Side Surgeon p L2-S1 laminectomies, L5-S1 instrumented fusion with bone graft Tc Cho MD He still having decreased oxygen saturations, especially while sleeping, requiring oxygen. He had some pulmonary edema on his chest x-ray yesterday but no sign of pneumonia. I am going to have Medicine see him today as he is still not clearing up. Okay to discharge from my point of view once this is addressed.
--- NOTE | 2019-11-04 08:19 | P.CONS_ITS ---
History of Present Illness Consult details Date Patient Seen: 11/04/19 Time Patient Seen: 11:34 Chief complaint: Translaminar Interbody Fusion/Laminotomy Reason for consult: hypoxia Requesting provider: Tc Cho Narrative: Sherwin Sparks is a 69 year old male with PMH of diabetes, hypertension, hyperlipidemia, BPH, panic disorder, prior CVA on plavix, asthma who underwent laminectomy on 10/[address] samayoa. He was scheduled for discharge over the weekend but then started developing hypoxia upon movement. He desaturates into the mid 80s when ambulating, and even desaturates when sitting sometimes up bright in his chair for too long. Patient denies any shortness of breath, or chest pain. He denies any fevers, chills, nausea, vomiting, abdominal pain, abdominal swelling, lower extremity edema. Patient states that he does have baseline dyspnea on exertion, able to walk about 1/2 mi before getting short of breath and up 2 flights of stairs at baseline. Patient states that he had an EKG done prior to surgery, upon review of his chart it looks like he had a non-nuclear stress test in 2017 which did not show any evidence of ischemia. EKG performed today does show a possible right bundle bra nch block, however it is unclear if this is new. Chest x-ray performed yesterday showed bilateral hazy opacities consistent with volume overload. Labs checked this morning showed no leukocytosis, stable chronic anemia, glucose of 192, and an indeterminate BNP of 305. Meds Home Medications and Allergies Home Medications Medication Instructions Recorded Confirmed Type aspirin 325 mg PO DAILY #0 01/24/12 10/31/19 History ferrous sulfate [iron] 650 mg PO DAILY #0 11/22/16 10/31/19 History albuterol sulfate 90 mcg/actuation 1 puff INHALATION PRN PRN #18 03/12/18 10/31/19 Rx aerosol inhaler inhalation atorvastatin [Lipitor] 20 mg PO QDAY #90 tab 09/07/18 10/31/19 Rx lisinopril 20 mg PO QDAY #90 tab 09/07/18 10/31/19 Rx baclofen 20 mg tablet See Rx Instructions .ROUTE 02/04/19 10/31/19 Rx .COMPLEX #270 tab clonazepam 1 mg tablet 0.5 mg PO HS #30 tab 04/24/19 10/31/19 Rx bupropion HCl 150 mg tablet,12 hr See Rx Instructions .ROUTE 09/03/19 10/31/19 Rx sustained-release .COMPLEX #60 tab Qvar RediHaler 1 inh INHALATION BID PRN 09/30/19 10/31/19 History amlodipine 5 mg PO BID 09/30/19 10/31/19 History clopidogrel 75 mg PO DAILY 09/30/19 10/31/19 History duloxetine 30 mg PO DAILY 09/30/19 10/31/19 History metformin [Glucophage] 1,000 mg PO BIDCC 09/30/19 10/31/19 History tamsulosin [Flomax] 0.12 mg PO QDAY 09/30/19 10/31/19 History clopidogrel [Plavix] 75 mg PO DAILY 10/31/19 10/31/19 History gabapentin 600 mg PO BEDTIME 10/31/19 10/31/19 History docusate sodium [DOK] 100 mg PO BID PRN #30 cap 11/01/19 Rx hydrocodone-acetaminophen 1 tab PO Q4HR PRN #25 tab 11/01/19 Rx hydroxyzine pamoate 25 mg PO Q4HR PRN #20 cap 11/01/19 Rx Allergies Allergy/AdvReac Type Severity Reaction Status Date / Time No Known Drug Allergies Allergy Verified 10/31/19 06:50 Review of Systems Review of Systems Narrative: All other systems reviewed with the patient and are negative unless otherwise stated. Exam Vital Signs (past 8 hours): - 11/04/19 05:00 Temperature 97.2 F L Pulse Rate 61 Respiratory Rate 18 Blood Pressure 121/62 Pulse Oximetry 92 Oxygen Delivery Method Nasal Cannula Oxygen Flow Rate 1.5 Narrative Exam Narrative: GENERAL APPEARANCE: Well developed, well nourished, in no acute distress. SKIN: Inspection of the skin reveals no rashes, ulcerations or petechiae. HEENT: The sclerae were anicteric and conjunctivae were pink and moist. Extraocular movements were intact and pupils were equal, round with normal accommodation. External inspection of the ears and nose showed no scars, lesions, or masses. Lips, teeth, and gums showed normal mucosa. The oral mucosa, hard and soft palate, tongue and posterior pharynx were unremarkable. NECK: Supple and symmetric. There was no thyroid enlargement, and no tenderness, or masses were felt. CHEST: Normal AP diameter and normal contour without any kyphoscoliosis. LUNGS: Bibasilar crackles on about the lower 1/4 of lung abbott posteriorly, superior to this his lungs are clear to auscultation bilaterally. CARDIOVASCULAR: There was a regular rate and rhythm without any murmurs, gallops, rubs. Peripheral pulses were 2+ and symmetric. There is no JVD. ABDOMEN: Soft and nontender with normal bowel sounds. No ascites was noted. MUSCULOSKELETAL: There was no tenderness or effusions noted. Muscle strength and tone were normal. EXTREMITIES: No cyanosis, clubbing or edema. NEUROLOGIC: Alert and oriented x 3. Normal affect. Gait was normal. Strength is +5/5 in the Upper Extremities and Lower Extremities Bilaterally. Sensation to touch was normal. Objective Labs Result Diagrams: 11/04/19 09:25 11/04/19 09:25 Assessment & Plan Assessment & Plan narrative: Sherwin Sparks is a 69 year old male with PMH of diabetes, hypertension, hyperlipidemia, BPH, panic disorder, prior CVA on plavix, asthma who underwent laminectomy on 10/[address] samayoa, Medicine was consulted today for hypoxia, mainly on exertion. 1. Hypoxia, not present on admission, active -patient does have a history of possible asthma but no wheezing on exam. He does have bibasilar crackles and an indeterminate BNP. Will trial 40 mg of IV Lasix to see if there is any improvement. Further possibilities include postoperative atelectasis, postoperative anemia, PE although this is felt unlikely at this time given no subjective chest pain or shortness of breath. However if he does not appear to improve will obtain a CTA. A D-dimer is not helpful in this situation given recent surgery. -will obtain TTE -strict intake and output with daily weights -continue to wean from oxygen as tolerated -respiratory therapy currently following, appreciate management. 2. Acute blood loss anemia, active, improving -continue patient's home iron supplementation 3. Hypertension, chronic, stable -continue home amlodipine, and lisinopril 4. History prior CVA -continue Plavix when able per surgery, currently on aspirin 325 mg daily. 5. BPH -continue home Flomax Code: Full, states is surrogate decision maker Medicine will continue to follow at this time.
[2019-11-04] MEDS: ATORVASTATIN 20 MG TABLET PO (08:59)
[2019-11-04] MEDS: DOCUSATE 100 MG CAPSULE PO ×2 (08:59→20:21)
[2019-11-04] MEDS: BACLOFEN 10 MG TABLET 20 MG PO (08:59)
[2019-11-04] MEDS: AMLODIPINE 5 MG TABLET PO ×2 (08:59→20:07)
[2019-11-04] MEDS: ASPIRIN 325 MG TABLET PO (08:59)
[2019-11-04] MEDS: METFORMIN HCL 500 MG TABLET 1000 MG PO ×2 (08:59→16:33)
[2019-11-04] MEDS: DULOXETINE 30 MG CAPSULE PO (09:00)
[2019-11-04] MEDS: CELECOXIB 200 MG CAPSULE PO ×2 (09:00→20:06)
[2019-11-04] MEDS: lisinopriL 20 MG TABLET PO (09:00)
[2019-11-04] MEDS: TAMSULOSIN 0.4 MG CAPSULE 0.8 MG PO (09:00)
[2019-11-04] MEDS: FERROUS SULFATE 325 MG TABLET 650 MG PO (09:03)
[2019-11-04 09:38] LABS: Add Manual Diff / Slide Review NO; Basophils Absolute Auto 100 /uL (0-100); Basophils Percent Auto 0.8 % (0-2); Eosinophils Absolute Auto 200 /uL (0-450); Eosinophils Percent Auto 3.5 % (2-4); Hemoglobin 10.6 g/dL (13.5-17.5); Lymphocytes Absolute Auto 1100 /uL (1100-4500); Lymphocytes Percent Auto 15.1 % (25-40); Mean Corpuscular HGB Conc 33.1 % (30-36); Mean Corpuscular Hemoglobin 29.3 PG (26-34); Mean Corpuscular Volume 88.5 fL (80-100); Monocytes Absolute Auto 700 /uL (0-900); Monocytes Percent Auto 9.8 % (3-14); Neutrophils Absolute Auto 5000 /uL (1500-7000); Neutrophils Percent Auto 70.8 % (50-75); Platelet Count 192 X10^3/uL (150-400); Red Blood Cell Count 3.61 X10^6/uL (4.5-5.9); White Blood Cell Count 7.1 X10^3/uL (4.5-11.0)
[2019-11-04 09:53] LABS: Alanine Aminotransferase 16 IU/L (<50); Albumin 3.4 g/dL (3.5-5.0); Albumin Globulin Ratio 1.1 (1.0-2.8); Alkaline Phosphatase 70 U/L (38-126); Aspartate Aminotransferase 27 IU/L (17-59); BUN Creatinine Ratio 23.8 (6-22); Bilirubin Total 0.7 mg/dL (0.2-1.3); Blood Urea Nitrogen 19 mg/dL (9-20); Calcium 9.1 mg/dL (8.4-10.2); Carbon Dioxide 33 mmol/L (22-32); Chloride 102 mmol/L (98-107); Estimated Glomerular Filt Rate > 60.0 mL/min (>60); Glucose 192 mg/dL (80-110); HEMOLYSIS < 15 (0-50); Potassium 4.8 mmol/L (3.4-5.1); Sodium 141 mmol/L (137-145); Total Protein 6.4 g/dL (6.3-8.2)
[2019-11-04 10:02] LABS: NT-proBNP (BNP-Adult 18+) 305 pg/mL (<125)
--- NOTE | 2019-11-04 10:14 | PT.IPTN ---
Current Diagnoses Spinal stenosis, lumbar region with neurogenic claudication (10/31/19) Ankylosing hyperostosis [[place]], site unspecified (10/31/19) Surgery Performed Operation Date: 08/30/19 07:45 <No data on this case meets the specified criteria> Operation Date: 10/31/19 07:45 Actual Procedures p L2-S1 laminectomies, L5-S1 instrumented fusion with bone graft - Tc Cho MD Physical Therapy Treatment Note M2 PT-IP Current Condition Start: 10/31/19 16:34 Freq: NEEDED Status: Active Protocol: Document 10/31/19 17:26 AW (Rec: 10/31/19 17:54 AW [id number]) Physical Therapy Current Condition Current Condition Evaluation Date 10/31/19 Treatment Diagnosis L2-S1 lami, L5-S1 fusion, impaired mobility Onset Date 10/31/19 Precautions Lumbar Precautions Log Roll,No Twisting,Limit Bending,Lifting Restriction of 10 lbs,Gait Belt above Incisional Area Weight Bearing Status Weight Bearing Status Full Weight Bearing M3 PT-IP Subjective Start: 10/31/19 16:34 Freq: NEEDED Status: Active Protocol: Document 11/04/19 10:14 CLB (Rec: 11/04/19 12:05 CLB [id number]) Subjective Physical Therapy Visit Type Type Treatment Note Visit Start Time 10:14 Visit Stop Time 10:38 Total Visit Minutes 24 Notes present for tx. Number of PERIANESTHESIA RN Visits 6 Physical Therapy Visit Comments Patient Comments Pt willing to ambulate and climb stairs. Therapy Pain Assessment Pain When Pain Assessed During Mobility Pain Present Pain Present Pain Reported Location lower back Intensity 3 Scale Used Numeric (1 - 10) M4 PT-IP Mobility and Gait Start: 10/31/19 16:34 Freq: NEEDED Status: Active Protocol: Document 11/04/19 10:14 CLB (Rec: 11/04/19 12:05 CLB [id number]) PT-Transfer Assessment Sit to and From Stand Sit to and from Stand Standby Assistance,1 Person Assistance,Use of Upper Extremities Equipment Transfer Assistive Device Gait Belt,Front Wheeled Walker Transfers Transfer Destination Chair Transfer Technique pt ambulated w/ FWW. Transfer Ability Level of Assist Standby Assistance,Use of Upper Extremities Comments Mobility Comments Pt in chair upon arrival, pt able to stand requiring SBA and cues to scoot to edge of chair before standing. Pt ambulated to stairs SBA-CGA and climbed platform step with FWW. Pt returned to room with one stop as pt SpO2 decreased to 83% on 1.5L O2, pt able to perform PLB and bring 02 back up to 92% within 30 seconds. Pt left in chair on 1.5L with SpO2 95%. Call light and all needs within reach and present. Gait Assessment Gait Gait Assistance Required: Standby Assistance,1 Person Assist Distance (Feet) 100 Able to Maintain Weight Bearing Status Yes During Gait Assistive Devices Assistive Device Gait Belt,Front Wheeled Walker Orthotic/Prosthetic Devices or Brace: No Gait Deviations General Gait Pattern Antalgic,Decreased Stride Length,Decreased Feet Clearance,Flexed Trunk,Step-to Gait Factors Limiting Gait Function Factors Limiting Gait Function Decreased Activity Tolerance, Decreased Strength,Difficulty Following Directions,Limited Range of Motion,Poor Safety Awareness Comments Gait Comments Please refer to mobility section for details. Stair Climbing Assessment Evaluation Level of Assist On Stairs Contact Guard Assistance,1 Person Assistance Devices Stair Climbing Assistive Devices Front Wheel Walker Technique/Endurance Stair Climbing Direction Ascend and Descend Stair Climbing Technique Step to Step Number of Steps Climbed 1 Stair Climbing Set # Repetitions (reps) 1 Comments Stair Climbing Comments Pt climbed platform step with FWW as pt states step is more like platform and walker can be used on steps. PT-Balance Assessment Sitting Balance and Reactions Static Sitting Balance Ability Good Standing Balance and Reactions Static Standing Balance Ability Fair Dynamic Standing Balance Ability Fair Device Used FWW M5 PT-IP Objective Assessments Start: 10/31/19 16:34 Freq: NEEDED Status: Active Protocol: Document 10/31/19 17:26 AW (Rec: 10/31/19 17:54 AW [id number]) Orientation Orientation/Cognition Level of Alertness Confusional State Orientation Name,Month,Place,Situation Language Function Ability No Deficits Noted Safety Awareness Decreased Safety Awareness Gross Range of Motion Lower Extremity ROM Assessment Bilaterally Impaired Strength Lower Extremity Strength Assessment Bilaterally Impaired Comments Strength Comments LLE grossly 4/5; RLE grossly 4 -/5 Coordination Assessment Gross Coordination Gross Coordination WNL Sensation Assessment Sensation Gross Sensation WNL M6 PT-IP Treatment Start: 10/31/19 16:34 Freq: NEEDED Status: Active Protocol: Document 11/03/19 15:09 CLB (Rec: 11/03/19 16:20 CLB [id number]) Physical Therapy Treatment Education Education Provided Precautions,Safety Other Treatments Other Treatment Performed Pt recalled 3/3 precautions. M7 PT-IP Assessment and Plan Start: 10/31/19 16:34 Freq: NEEDED Status: Active Protocol: Document 11/04/19 10:14 CLB (Rec: 11/04/19 12:05 CLB [id number]) PT Summary Assessment and Plan Potential Rehabilitation Potential Good Status of Condition at Evaluation Evolving Summary Impairments ROM,Strength,Balance,Bed Mobility,Transfers,Gait, Activity Tolerance Assessment Summary Pt continues to have decreased SpO2 during activity and requires cues to breath. Pt mobilty is progressing well, pt present for CG training and is able to assist pt appropriately. Pt may d/c home with when medically stable. Goals Bed Mobility Goal Standby Assistance Transfer Goal Standby Assistance,Front Wheeled Walker Gait Goal Standby Assistance,Front Wheel Walker Gait Distance 150 Other Goals up/down 3 steps without railing Days to Meet Goals 5 Frequency of Treatment Frequency Of Treatment Twice a Day Treatment Plan Physical Therapy Treatment Plan Bed Mobility Training,Transfer Training,Gait Training, Therapeutic Exercise,Balance Retraining,Post Op Education, Discharge Planning,Hot or Cold Pack,Neuromuscular Re-ed, Coordination Retraining,Manual Therapy Recommendations To Nursing Amount of Assist Needed 1 Person Assist Discharge Recommendations PT Discharge Recommendations Home with 27/03 Assist Transportation Needs at Discharge Private Vehicle,Wheelchair/ Cabulance
[2019-11-04] MEDS: FUROSEMIDE 40 MG/4 ML VIAL IV (12:36)
[2019-11-04] MEDS: INSULIN ASPART 100 UNIT/ML INSULN PEN SUBCUT (12:37)
--- NOTE | 2019-11-04 13:17 | OT.IP.TRT ---
Current Diagnoses Spinal stenosis, lumbar region with neurogenic claudication (10/31/19) Ankylosing hyperostosis [[place]], site unspecified (10/31/19) Surgery Performed Operation Date: 08/30/19 07:45 <No data on this case meets the specified criteria> Operation Date: 10/31/19 07:45 Actual Procedures p L2-S1 laminectomies, L5-S1 instrumented fusion with bone graft - Tc Cho MD Occupational Therapy Treatment Note M2 OT-IP Current Condition Start: 11/01/19 12:42 Freq: Status: Active Protocol: Document 11/01/19 12:42 CGR (Rec: 11/01/19 12:52 CGR [id number]) Occupational Therapy Current Condition Current Condition Evaluation Date 11/01/19 Treatment Diagnosis L2-S1 TLIF with cage Diagnosis Onset Date 10/31/19 Post Operative Precautions Lumbar Precautions Log Roll,No Twisting,Limit Bending,Lifting Restriction of 10 lbs,Gait Belt above Incisional Area M3 OT- IP Subjective and Pain Start: 11/01/19 12:42 Freq: Status: Active Protocol: Document 11/04/19 13:40 CCC (Rec: 11/04/19 14:02 [facility] [id number]) OT- Subjective Occupational Therapy Visit Type Type Treatment Note Visit Start Time 12:53 Visit Stop Time 13:17 Occupational Therapy Visit Comments Patient Comments Pt not wanting to shower but agreeable to get up. Patient/Caregiver Goals To go home. OT Pain Assessment Pain When Pain Assessed At Rest Pain Present Pain Present Denied Pain M4 OT- IP ADL's Start: 11/01/19 12:42 Freq: Status: Active Protocol: Document 11/04/19 13:40 CCC (Rec: 11/04/19 14:02 [facility] [id number]) OT ADL-Grooming General Evaluation Grooming Ability Standby Assistance Areas Needing Assistance Retrieving/Set-up of Grooming Items Comments OT Grooming Comments Standing at sink OT ADL-Toileting Comments OT Toileting Comments Educated to have wipes and use of toilet aid OT ADL-Bathing Comments OT Bathing Comments Pt not wanting to shower at this time. Pt's states able to sampler pickup a shower stool . M5 OT- IP IADL's Start: 11/01/19 12:42 Freq: Status: Active Protocol: Document 11/01/19 12:42 CGR (Rec: 11/01/19 12:52 CGR [id number]) OT-Instrumental Activities of Daily Living Deficits IADL Deficits Identified Deficits Home Safety Awareness Awareness of Need for Assistance at Home Good Awareness Ability to Problem Solve Emergency Able to Problem Solve Situations Home Safety Comments Pt will need review of back precautions. Medication Management Medication Management Caregiver Provides Supervision Money Management Money Management Caregiver Provides Supervision Meal Preparation Meal Preparation Caregiver Provides Supervision Director Of Social Services Director Of Social Services Caregiver Provides Assist Driving Driving Comments Pt understand that he can not drive again till cleared by MD . M6 OT- IP Functional Cognition Start: 11/01/19 12:42 Freq: Status: Active Protocol: Document 11/04/19 13:40 [facility] (Rec: 11/04/19 14:02 [facility] [id number]) Cognitive Factors Limiting Selfcare Function Cognitive Ability Level of Alertness Alert Patient Orientation Name,Age,Birthday,Month,Date, Year,Day of Week,Place, Situation Attention Span Ability Capable of Focused Attention, Capable of Sustained Attention Ability to Follow Commands Able to Follow Multi-Step Commands Memory Description No Deficits Noted Safety Awareness No Deficits Noted Problem Solving Ability No deficits Noted Executive Function Ability No Deficits Noted Abstract Thinking Ability No Deficits Noted Cognitive Comments Cognitive Assessment Comments Pt has no deficits. Pt needing occasional reminders to take deep breaths. M7 OT- IP Mobility and Balance Start: 11/01/19 12:42 Freq: Status: Active Protocol: Document 11/04/19 13:40 [facility] (Rec: 11/04/19 14:02 [facility] [id number]) OT-Transfer Assessment Sit to and From Stand Sit to and from Stand Contact Guard Assistance,1 Person Assistance Transfers Transfer Ability Standby Assistance,Contact Guard Assistance,1 Person Assistance Technique Transfer Destination Chair Transfer Technique Stand Step Pivot Devices Transfer Assistive Devices Gait Belt,Front Wheeled Walker Comments Mobility Comments Pt able to ambulate to the sink for grooming needs to brush his hair whiel stahding with FWW. OT- Gait Assessment Comments Gait Ability Comments Pt on RA sitting 94-98% and after getting up and walking to the sink and part of the hallway dropped to 89% and after several seconds increased to 92%. Notified pt 's nurse and she states okay to keep the O2 off as long as pt not symptomatic. OT- Balance Assessment Sitting Balance and Reactions Static Sitting Balance Ability Good Dynamic Sitting Balance Ability Good Standing Balance and Reactions Static Standing Balance Ability Good M8 OT- IP Objective Assessments Start: 11/01/19 12:42 Freq: Status: Active Protocol: Document 11/01/19 12:42 CGR (Rec: 11/01/19 12:52 CGR [id number]) OT Gross Range of Motion Upper Extremity Range of Motion Assessment Within Functional Limits ROM Impairments shlds 0-90 but functional OT Strength Upper Extremity Strength Assessment Within Functional Limits Comments Strength Comments grossly 4/5 or greater OT- Coordination Assessment Upper Extremity Finger to Nose Test Within Functional Limits Finger Tapping Test Within Functional Limits OT-Muscle Tone Assessment Muscle Tone WNL Yes OT Sensation Assessment Edema Edema Absent M9 OT- IP Assessment and Plan Start: 11/01/19 12:42 Freq: Status: Active Protocol: Document 11/04/19 13:40 CCC (Rec: 11/04/19 14:02 CCC [email or web address]) OT Summary Assessment and Plan Potential Rehabilitation Potential Good Analytic Complexity at Evaluation Low Summary OT Impairments Pain,Range of Motion,Balance, Functional Mobility,Grooming, Dressing,Toileting,Bathing, Toilet Transfers,Shower Transfers,Activity Tolerance Progress Towards Goals Progressing Toward Goals Assessment Summary Pt doing better today and pt's has good understanding for all OT needs and now to assist pt . Pt looking to go home when medically stable. Goals Grooming Goal Independent Dressing Goal Independent,Credit Card Associate,Sock Aid Toileting Goal Independent Bathing Goal Independent Toilet Transfer Goal Independent Shower Transfer Goal Independent Days to Meet Goals 3 Frequency of Treatment Frequency Of Treatment Once a Day Treatment Plan OT Treatment Plan ADL Training,Functional Mobility,Patient/Family Education,Discharge Planning Other Treatment Recommendations and Next Shower Treatment Focus Discharge Recommendations OT Discharge Recommendations Home with Assistance Transportation Needs at Discharge Private Vehicle
--- NOTE | 2019-11-04 13:34 | PT.IPTN ---
Current Diagnoses Spinal stenosis, lumbar region with neurogenic claudication (10/31/19) Ankylosing hyperostosis [[place]], site unspecified (10/31/19) Surgery Performed Operation Date: 08/30/19 07:45 <No data on this case meets the specified criteria> Operation Date: 10/31/19 07:45 Actual Procedures p L2-S1 laminectomies, L5-S1 instrumented fusion with bone graft - Tc Cho MD Physical Therapy Treatment Note M2 PT-IP Current Condition Start: 10/31/19 16:34 Freq: NEEDED Status: Active Protocol: Document 10/31/19 17:26 AW (Rec: 10/31/19 17:54 AW [id number]) Physical Therapy Current Condition Current Condition Evaluation Date 10/31/19 Treatment Diagnosis L2-S1 lami, L5-S1 fusion, impaired mobility Onset Date 10/31/19 Precautions Lumbar Precautions Log Roll,No Twisting,Limit Bending,Lifting Restriction of 10 lbs,Gait Belt above Incisional Area Weight Bearing Status Weight Bearing Status Full Weight Bearing M3 PT-IP Subjective Start: 10/31/19 16:34 Freq: NEEDED Status: Active Protocol: Document 11/04/19 13:16 CLB (Rec: 11/04/19 13:44 CLB [id number]) Subjective Physical Therapy Visit Type Type Treatment Note Visit Start Time 13:16 Visit Stop Time 13:34 Total Visit Minutes 18 Notes RN requested ambulation w/o O2 Number of CLASSROOM AIDE Visits 7 Physical Therapy Visit Comments Patient Comments Pt willing to ambulate. Therapy Pain Assessment Pain When Pain Assessed During Mobility Pain Present Pain Present Pain Reported Location lower back Intensity 3 Scale Used Numeric (1 - 10) M4 PT-IP Mobility and Gait Start: 10/31/19 16:34 Freq: NEEDED Status: Active Protocol: Document 11/04/19 13:16 CLB (Rec: 11/04/19 13:44 CLB [id number]) PT-Transfer Assessment Sit to and From Stand Sit to and from Stand Standby Assistance,1 Person Assistance,Use of Upper Extremities Equipment Transfer Assistive Device Gait Belt,Front Wheeled Walker Transfers Transfer Destination Chair Transfer Technique pt ambulated w/ FWW. Transfer Ability Level of Assist Standby Assistance,Use of Upper Extremities Gait Assessment Gait Gait Assistance Required: Standby Assistance,1 Person Assist Distance (Feet) 260 Able to Maintain Weight Bearing Status Yes During Gait Assistive Devices Assistive Device Gait Belt,Front Wheeled Walker Orthotic/Prosthetic Devices or Brace: No Gait Deviations General Gait Pattern Antalgic,Decreased Stride Length,Decreased Feet Clearance,Flexed Trunk,Step-to Gait Factors Limiting Gait Function Factors Limiting Gait Function Decreased Activity Tolerance, Decreased Strength,Difficulty Following Directions,Limited Range of Motion,Poor Safety Awareness Comments Gait Comments Pt ambulated ~260ft on RA in [place] with one standing rest break for deep breathing to increase O2 sat 0f 87%. Pt took four breathes to increase O2 sats to 92%. M5 PT-IP Objective Assessments Start: 10/31/19 16:34 Freq: NEEDED Status: Active Protocol: Document 10/31/19 17:26 AW (Rec: 10/31/19 17:54 AW [id number]) Orientation Orientation/Cognition Level of Alertness Confusional State Orientation Name,Month,Place,Situation Language Function Ability No Deficits Noted Safety Awareness Decreased Safety Awareness Gross Range of Motion Lower Extremity ROM Assessment Bilaterally Impaired Strength Lower Extremity Strength Assessment Bilaterally Impaired Comments Strength Comments LLE grossly 4/5; RLE grossly 4 -/5 Coordination Assessment Gross Coordination Gross Coordination WNL Sensation Assessment Sensation Gross Sensation WNL M6 PT-IP Treatment Start: 10/31/19 16:34 Freq: NEEDED Status: Active Protocol: Document 11/03/19 15:09 CLB (Rec: 11/03/19 16:20 CLB [id number]) Physical Therapy Treatment Education Education Provided Precautions,Safety Other Treatments Other Treatment Performed Pt recalled 3/3 precautions. M7 PT-IP Assessment and Plan Start: 10/31/19 16:34 Freq: NEEDED Status: Active Protocol: Document 11/04/19 13:16 CLB (Rec: 11/04/19 13:44 CLB [id number]) PT Summary Assessment and Plan Potential Rehabilitation Potential Good Status of Condition at Evaluation Evolving Summary Impairments ROM,Strength,Balance,Bed Mobility,Transfers,Gait, Activity Tolerance Assessment Summary Pt is SBA for sit-stand and transfers. Pt increased ambulation to ~260ft SBA with O2 ranging from 87-93% on RA. Goals Bed Mobility Goal Standby Assistance Transfer Goal Standby Assistance,Front Wheeled Walker Gait Goal Standby Assistance,Front Wheel Walker Gait Distance 150 Other Goals up/down 3 steps without railing Days to Meet Goals 5 Frequency of Treatment Frequency Of Treatment Twice a Day Treatment Plan Physical Therapy Treatment Plan Bed Mobility Training,Transfer Training,Gait Training, Therapeutic Exercise,Balance Retraining,Post Op Education, Discharge Planning,Hot or Cold Pack,Neuromuscular Re-ed, Coordination Retraining,Manual Therapy Recommendations To Nursing Amount of Assist Needed 1 Person Assist Discharge Recommendations PT Discharge Recommendations Home with 27/03 Assist Transportation Needs at Discharge Private Vehicle
[2019-11-04] MEDS: BACLOFEN 10 MG TABLET 40 MG PO (16:33)
[2019-11-04] MEDS: MAGNESIUM HYDROXIDE 30 ML UDC PO (16:33)
[2019-11-04] MEDS: GABAPENTIN 600 MG TABLET PO (20:06)
[2019-11-04] MEDS: clonazePAM 0.5 MG TABLET PO (20:06)
[2019-11-04] MEDS: SENNOSIDES 8.6 MG TABLET 17.2 MG PO (20:07)
[2019-11-05] VITALS (10 sets, daily range): BP systolic 134–145; BP diastolic 65–76; PULSE 61–70; RESP 16–18; TEMP 36.3–36.7; O2SAT 88–97
--- NOTE | 2019-11-05 07:50 | P.PN_ITS ---
Subjective Subjective Date Patient Seen: 11/05/19 Time Patient Seen: 07:51 Interval history: He is doing well. Still requiring 1.5 L oxygen to maintain a saturation overnight. Exam Vital Signs (past 8 hours): - 11/05/19 00:01 11/05/19 05:39 11/05/19 07:31 Temperature 98.0 F 97.5 F L 97.6 F Pulse Rate 70 61 Respiratory Rate 16 16 18 Blood Pressure 145/65 H 144/76 H 136/66 Pulse Oximetry 95 95 94 11/05/19 07:44 Temperature Pulse Rate Respiratory Rate Blood Pressure Pulse Oximetry 93 Oxygen Delivery Method Nasal Cannula Oxygen Flow Rate 1.5 Const Orientation: alert and oriented x3 Back/Spine/Pelvis Other: CDI. 5/5 motor both lower extremities Objective Labs Result Diagrams: 11/04/19 09:25 11/04/19 09:25 Labs: Laboratory Results - last 24 hr 11/04/19 11/04/19 09:25 09:25 WBC 7.1 RBC 3.61 L Hgb 10.6 L Hct 32.0 L MCV 88.5 MCH 29.3 MCHC 33.1 RDW 14.0 Plt Count 192 Neut % (Auto) 70.8 Lymph % (Auto) 15.1 L [place] % (Auto) 9.8 Eos % (Auto) 3.5 Baso % (Auto) 0.8 Neut # (Auto) 5000 Lymph # (Auto) 1100 [place] # (Auto) 700 Eos # (Auto) 200 Baso # (Auto) 100 Sodium 141 Potassium 4.8 Chloride 102 Carbon Dioxide 33 H BUN 19 Creatinine 0.80 Estimated GFR > 60.0 BUN/Creatinine Ratio 23.8 H Glucose 192 H Calcium 9.1 Total Bilirubin 0.7 AST 27 ALT 16 Alkaline Phosphatase 70 NT-Pro-B Natriuret Pep 305 H Total Protein 6.4 Albumin 3.4 L Globulin 3.0 Albumin/Globulin Ratio 1.1 Assessment & Plan Post-op Postoperative Procedures: Procedures Operation Date: 08/30/19 07:45 <No data on this case meets the specified criteria> Operation Date: 10/31/19 07:45 Actual Procedures Side Surgeon p L2-S1 laminectomies, L5-S1 instrumented fusion with bone graft Tc Cho MD continue work on diuresis today. Hope to discharge home if we can resolve the oxygen requirement.
--- NOTE | 2019-11-05 07:52 | PM.PN.1 ---
Subjective Subjective Date Patient Seen: 11/05/19 Time Patient Seen: 07:52 Interval history: Sherwin Sparks is a 69 year old male with PMH of diabetes, hypertension, hyperlipidemia, BPH, panic disorder, prior CVA on plavix, asthma who underwent laminectomy on 10/[address] samayoa, He is seen today for follow-up of postoperative hypoxia. Patient was seen this morning, his oxygen was shut off and while awake his oxygen saturations remained in the low 90s. Yesterday upon ambulation with PT his oxygen was also in the upper 80s. He received a dose of Lasix yesterday and was net -3 L. he seems to desaturate when he falls asleep. does report that the patient has mild sleep apnea, but gets anxiety when he wears his mask and therefore does not wear it. Unfortunately he will not be able to obtain an ultrasound today due to limited availability. Depending on how he ambulates today am comfortable sending him home as his hypoxia is likely due to ADELINA based on clinical data thus far as long as he has follow-up with a primary care physician. Exam Vital Signs (past 8 hours): - 11/05/19 00:01 11/05/19 05:39 11/05/19 07:31 Temperature 98.0 F 97.5 F L 97.6 F Pulse Rate 70 61 Respiratory Rate 16 16 18 Blood Pressure 145/65 H 144/76 H 136/66 Pulse Oximetry 95 95 94 11/05/19 07:44 Temperature Pulse Rate Respiratory Rate Blood Pressure Pulse Oximetry 93 Oxygen Delivery Method Nasal Cannula Oxygen Flow Rate 1.5 Narrative Exam Narrative: GENERAL APPEARANCE: Well developed, well nourished, in no acute distress. SKIN: Inspection of the skin reveals no rashes, ulcerations or petechiae. HEENT: The sclerae were anicteric and conjunctivae were pink and moist. Extraocular movements were intact and pupils were equal, round with normal accommodation. External inspection of the ears and nose showed no scars, lesions, or masses. Lips, teeth, and gums showed normal mucosa. The oral mucosa, hard and soft palate, tongue and posterior pharynx were unremarkable. NECK: Supple and symmetric. There was no thyroid enlargement, and no tenderness, or masses were felt. CHEST: Normal AP diameter and normal contour without any kyphoscoliosis. LUNGS: Minimal bibasilar crackles, improved from previous exam, other lung abbott were clear to auscultation bilaterally. CARDIOVASCULAR: There was a regular rate and rhythm without any murmurs, gallops, rubs. Peripheral pulses were 2+ and symmetric. There is no JVD. ABDOMEN: Soft and nontender with normal bowel sounds. No ascites was noted. MUSCULOSKELETAL: There was no tenderness or effusions noted. Muscle strength and tone were normal. EXTREMITIES: No cyanosis, clubbing or edema. NEUROLOGIC: Alert and oriented x 3. Normal affect. Gait was normal. Strength is +5/5 in the Upper Extremities and Lower Extremities Bilaterally. Sensation to touch was normal. Objective Labs Result Diagrams: 11/04/19 09:25 11/04/19 09:25 Labs: Laboratory Results - last 24 hr 11/04/19 11/04/19 09:25 09:25 WBC 7.1 RBC 3.61 L Hgb 10.6 L Hct 32.0 L MCV 88.5 MCH 29.3 MCHC 33.1 RDW 14.0 Plt Count 192 Neut % (Auto) 70.8 Lymph % (Auto) 15.1 L [place] % (Auto) 9.8 Eos % (Auto) 3.5 Baso % (Auto) 0.8 Neut # (Auto) 5000 Lymph # (Auto) 1100 [place] # (Auto) 700 Eos # (Auto) 200 Baso # (Auto) 100 Sodium 141 Potassium 4.8 Chloride 102 Carbon Dioxide 33 H BUN 19 Creatinine 0.80 Estimated GFR > 60.0 BUN/Creatinine Ratio 23.8 H Glucose 192 H Calcium 9.1 Total Bilirubin 0.7 AST 27 ALT 16 Alkaline Phosphatase 70 NT-Pro-B Natriuret Pep 305 H Total Protein 6.4 Albumin 3.4 L Globulin 3.0 Albumin/Globulin Ratio 1.1 Assessment & Plan Assessment & Plan narrative: Sherwin Sparks is a 69 year old male with PMH of diabetes, hypertension, hyperlipidemia, BPH, panic disorder, prior CVA on plavix, asthma who underwent laminectomy on 10/[address] samayoa, Medicine was consulted today for hypoxia, mainly on exertion. 1. Hypoxia, not present on admission but likely chronic, active -patient does have a history of possible asthma but no wheezing on exam. He does have bibasilar crackles and an indeterminate BNP. Diuresed 3 L after 40 mg of Lasix, will repeat a dose today in the case of possible volume overload. Further possibilities include postoperative atelectasis, obstructive sleep apnea, postoperative anemia, PE although this is felt unlikely at this time given no subjective chest pain or shortness of breath. -TTE is unable to be performed today, he can obtain this as an outpatient at this time and this does not need to hold up his discharge. He should follow-up with the primary care provider. Given this is acute volume overload I do not suspect that he will require Lasix upon discharge. He can resume his home medications. -strict intake and output with daily weights -continue to wean from oxygen as tolerated, with goal of greater than 88% -respiratory therapy currently following, appreciate management. -if patient stays, would resume CPAP therapy per respiratory therapy. 2. Acute blood loss anemia, active, improving -continue patient's home iron supplementation 3. Hypertension, chronic, stable -continue home amlodipine, and lisinopril 4. History prior CVA -continue Plavix when able per surgery, currently on aspirin 325 mg daily. 5. BPH -continue home Flomax Code: Full, states is surrogate decision maker Medicine will continue to follow this patient while admitted, however from medicine / hypoxia perspective he will likely be stable for discharge today if his oxygen saturations remain steady from yesterday.
--- NOTE | 2019-11-05 09:04 | OT.IPNOTE ---
Pt going home today and not wanting to do any OT at this time. Pt's has good understanding to be able to assist pt for all OT needs. Pt wanting to see PT before leaving.
[2019-11-05] MEDS: AMLODIPINE 5 MG TABLET PO (09:37)
[2019-11-05] MEDS: METFORMIN HCL 500 MG TABLET 1000 MG PO (09:37)
[2019-11-05] MEDS: BACLOFEN 10 MG TABLET 20 MG PO (09:38)
[2019-11-05] MEDS: ASPIRIN 325 MG TABLET PO (09:38)
[2019-11-05] MEDS: CELECOXIB 200 MG CAPSULE PO (09:38)
[2019-11-05] MEDS: ATORVASTATIN 20 MG TABLET PO (09:38)
[2019-11-05] MEDS: DOCUSATE 100 MG CAPSULE PO (09:38)
[2019-11-05] MEDS: DULOXETINE 30 MG CAPSULE PO (09:39)
[2019-11-05] MEDS: lisinopriL 20 MG TABLET PO (09:39)
[2019-11-05] MEDS: FUROSEMIDE 40 MG/4 ML VIAL IV (09:39)
[2019-11-05] MEDS: FERROUS SULFATE 325 MG TABLET 650 MG PO (09:39)
[2019-11-05] MEDS: TAMSULOSIN 0.4 MG CAPSULE 0.8 MG PO (09:40)
[2019-11-05] MEDS: SODIUM CHLORIDE 0.9% FLUSH 10 ML IV (09:40)
--- NOTE | 2019-11-05 10:05 | PT.IPTN ---
Current Diagnoses Spinal stenosis, lumbar region with neurogenic claudication (10/31/19) Ankylosing hyperostosis [[place]], site unspecified (10/31/19) Surgery Performed Operation Date: 08/30/19 07:45 <No data on this case meets the specified criteria> Operation Date: 10/31/19 07:45 Actual Procedures p L2-S1 laminectomies, L5-S1 instrumented fusion with bone graft - Tc Cho MD Physical Therapy Treatment Note M2 PT-IP Current Condition Start: 10/31/19 16:34 Freq: NEEDED Status: Active Protocol: Document 10/31/19 17:26 AW (Rec: 10/31/19 17:54 AW [id number]) Physical Therapy Current Condition Current Condition Evaluation Date 10/31/19 Treatment Diagnosis L2-S1 lami, L5-S1 fusion, impaired mobility Onset Date 10/31/19 Precautions Lumbar Precautions Log Roll,No Twisting,Limit Bending,Lifting Restriction of 10 lbs,Gait Belt above Incisional Area Weight Bearing Status Weight Bearing Status Full Weight Bearing M3 PT-IP Subjective Start: 10/31/19 16:34 Freq: NEEDED Status: Active Protocol: Document 11/05/19 10:05 AB (Rec: 11/05/19 11:12 AB [id number]) Subjective Physical Therapy Visit Type Type Treatment Note Visit Start Time 10:05 Visit Stop Time 10:38 Total Visit Minutes 33 Number of COOLING PIPE INSPECTOR Visits 0 Physical Therapy Visit Comments Patient Comments pt agreeable to do PT Therapy Pain Assessment Pain When Pain Assessed At Rest Pain Present Pain Present Pain Reported Location lower back Intensity 2 Scale Used Numeric (1 - 10) Pain Management Techniques Re-positioning,Timing of Activity with Medications M4 PT-IP Mobility and Gait Start: 10/31/19 16:34 Freq: NEEDED Status: Active Protocol: Document 11/05/19 10:05 AB (Rec: 11/05/19 11:12 AB [id number]) PT-Transfer Assessment Sit to and From Stand Sit to and from Stand Standby Assistance,1 Person Assistance Equipment Transfer Assistive Device Gait Belt,Front Wheeled Walker Orthotic/Prosthetic Devices or Brace: No Comments Mobility Comments pt sitting on chair and agreed to do PT. spouse in room with pt. pt and spouse refused to do bed mobility and stated that pt's elbow is betting sore doing log roll and they are comfortable with how pt can do bed mobility. spouse stated that caregiver training was completed previously. spouse was able to leeroy safety belt on pt and assisted pt with sit to stand and ambulation. pt ambulated towards the stairs. O2 sat at RA resting 97% and maintained at 88-90 with ambulation. pt completed up/down platform step CGA. spouse was able to assist pt safely. pt ambulated farterh ~ 75 ft using FWW SBA to CGA. spouse assisting. pt ambulated back to his room and rested on the chair. O2 sat decreased to ~ 83% but went up to 96% with deep breathing. O2 sat increased in less than 30 sec. positioned pt on chair. call light and table placed within reach. Gait Assessment Gait Gait Assistance Required: Standby Assistance,Contact Guard Assist Distance (Feet) 75 Able to Maintain Weight Bearing Status Yes During Gait Assistive Devices Assistive Device Gait Belt,Front Wheeled Walker Orthotic/Prosthetic Devices or Brace: No Gait Deviations General Gait Pattern Antalgic,Decreased Stride Length,Decreased Feet Clearance Factors Limiting Gait Function Factors Limiting Gait Function Decreased Activity Tolerance, Decreased Strength,Pain,Poor Balance,Respiratory Distress Stair Climbing Assessment Evaluation Level of Assist On Stairs Contact Guard Assistance Devices Stair Climbing Assistive Devices Front Wheel Walker Technique/Endurance Stair Climbing Direction Ascend and Descend Stair Climbing Technique Step to Step Number of Steps Climbed 1 Stair Climbing Set # Repetitions (reps) 1 M5 PT-IP Objective Assessments Start: 10/31/19 16:34 Freq: NEEDED Status: Active Protocol: Document 10/31/19 17:26 AW (Rec: 10/31/19 17:54 AW [id number]) Orientation Orientation/Cognition Level of Alertness Confusional State Orientation Name,Month,Place,Situation Language Function Ability No Deficits Noted Safety Awareness Decreased Safety Awareness Gross Range of Motion Lower Extremity ROM Assessment Bilaterally Impaired Strength Lower Extremity Strength Assessment Bilaterally Impaired Comments Strength Comments LLE grossly 4/5; RLE grossly 4 -/5 Coordination Assessment Gross Coordination Gross Coordination WNL Sensation Assessment Sensation Gross Sensation WNL M6 PT-IP Treatment Start: 10/31/19 16:34 Freq: NEEDED Status: Active Protocol: Document 11/05/19 10:05 AB (Rec: 11/05/19 11:12 AB [id number]) Physical Therapy Treatment Education Education Provided Precautions,Safety M7 PT-IP Assessment and Plan Start: 10/31/19 16:34 Freq: NEEDED Status: Active Protocol: Document 11/05/19 10:05 AB (Rec: 11/05/19 11:12 AB [id number]) PT Summary Assessment and Plan Potential Rehabilitation Potential Good Summary Impairments Pain,ROM,Strength,Balance, Coordination,Sensation,Tone, Cognition,Bed Mobility, Transfers,Gait,Activity Tolerance Progress Towards Goals Progressing Toward Goals Assessment Summary caregiver training conducted and spouse was able to assist pt safely. O2 sat decreases to 83% at room air after ambulation but increased to 96 % at rest after ~ 30 sec. pt plans to go home and spouse will assist him. educated on deep breathing and energy conservation. pt may go home when medically stable. Goals Bed Mobility Goal Independent Transfer Goal Independent,Front Wheeled Walker Gait Goal Independent,Front Wheel Walker Gait Distance 150 Other Goals up/down platform step using FWW SBA Days to Meet Goals 5 Frequency of Treatment Frequency Of Treatment Twice a Day Treatment Plan Physical Therapy Treatment Plan Bed Mobility Training,Transfer Training,Gait Training, Therapeutic Exercise,Balance Retraining,Post Op Education, Discharge Planning,Hot or Cold Pack,Neuromuscular Re-ed, Coordination Retraining,Manual Therapy Recommendations To Nursing Amount of Assist Needed 1 Person Assist Discharge Recommendations PT Discharge Recommendations Home with 27/03 Assist Transportation Needs at Discharge Private Vehicle
--- NOTE | 2019-11-05 10:22 | PC.NURSE ---
Addendum entered by Wendy Hernandez R.N. 11/05/19 13:06: Discharge: IV dc'd intact. Reviewed all d/c instructions thoroughly with patient and . Given a few Coversite dressings per instruction from Dr Cho. Reviewed s/sx with which to call MD or return to hospital. Scripts filled yesterday by his . Patient maintained O2 sats 88% or above with ambulation and up in the 90's at rest which was the criteria that MD's were looking for at discharge. Patient should follow up with PCP for sleep apnea management and outpatient ECHO (per Dr Hayes patient does not need to stay for ECHO today). Reiterated and reinforced spine precautions. Patient and both verbalized understanding of instructions and stated no further questions. Wheeled out to private vehicle by nursing staff, all belongings sent with patient. Original Note: Shift summary: Awake and alert, oriented X3. Calls appropriately. Reports minimal pain in back at incision site (rates 2/10). Old dressing was removed (had saturated thru w/ serosanguinous drainage) and replaced with new Coversite dressing. Parallel incisions were well-approximated with combination of sutures and carlos. Minimal bruising/erythema, but does still seem to be oozing some sero-sang drainage. Patient denies paresthesias aside from baseline neuropathy to bilateral feet. Denies SOB at rest, lungs with a few fine basilar crackles. Occasional non-productive cough. Sats awake and at rest in the mid-upper 90's. De-sats into the 80's when asleep and off O2. BT+, flatus+. Had a moderate size BM this morning, first since surgery. Denies any issues w/ voiding. Dose of IV Lasix infusing at this time. PT in seeing patient now.
--- NOTE | 2019-11-05 12:29 | CM.DPC ---
DCP continued: EMR reviewed: Cm/RN called [facility] to check on referral for Patient - CM/RN was updated that patient was denied with them due to [facility] not being contracted with [facility]. CM/ Rn contacted [facility] after and sent the referral to them along with F2F and D/C summary for them to review. Cm/RN also let them know that patient was D/C today and would need services set up quickly. CM updated that they will process patient right away. Parisa Tolliver RN
[2019-11-05] MEDS: HYDROCODONE/ACET 5/325 TABLET 1 TAB PO (12:38)
== END 2019-11-05 13:23 | disposition home health service (06) | DRG 454 ==
PROVIDERS: Internal Medicine; Physician Assistant Surgical; Admitting Provider Orthopaedic Surgery; PCP Family Medicine; Referring Provider Orthopaedic Surgery; Visit Provider Orthopaedic Surgery
PROC: 0SG30AJ Fusion of Lumbosacral Joint with Interbody Fusion Device, Posterior Approach, Anterior Column, Open Approach (ICD-10-PCS; principal; 2019-10-31 07:45)
DX: M48.062 Spinal stenosis, lumbar region with neurogenic claudication (principal); I69.351 Hemiplegia and hemiparesis following cerebral infarction affecting right dominant side; D62 Acute posthemorrhagic anemia; M48.10 Ankylosing hyperostosis [Forestier], site unspecified; E11.9 Type 2 diabetes mellitus without complications; I10 Essential (primary) hypertension; F41.9 Anxiety disorder, unspecified; J45.909 Unspecified asthma, uncomplicated; G89.18 Other acute postprocedural pain; E78.5 Hyperlipidemia, unspecified; N40.0 Benign prostatic hyperplasia without lower urinary tract symptoms; G47.33 Obstructive sleep apnea (adult) (pediatric); F41.0 Panic disorder [episodic paroxysmal anxiety]; R09.02 Hypoxemia; Z79.84 Long term (current) use of oral hypoglycemic drugs; Z87.891 Personal history of nicotine dependence; Z98.1 Arthrodesis status
CPT/HCPCS: 36415; 71046; 72100; 76000; 80048; 80053; 82962; 83880; 85014; 85018; 85025; 93005; 93010; 94760; 94762; 97110; 97116; 97162; 97165; 97530; 97535; C1776; J0330; J0595; J0690; J1170; J1940; J2274; J2405; J2704; J3010

== ENCOUNTER 2019-11-09 15:00 | Observation (INO) | payer OTHER, SELFPAY ==
[2019-10-31 14:07] VITALS: BMI 36.4
[2019-11-08] VITALS (18 sets, daily range): BP systolic 94–146; BP diastolic 37–78; PULSE 53–92; RESP 7–18; TEMP 36.5–37; O2SAT 84–98; BMI 36.6
[2019-11-08] MEDS: ACETAMINOPHEN 325 MG TABLET 975 MG PO (09:30)
[2019-11-08] MEDS: LACTATED RINGERS 1,000 ML 42 ML IV (09:31)
[2019-11-08] MEDS: GABAPENTIN 300 MG CAPSULE PO (09:31)
[2019-11-08 09:56] LABS: Add Manual Diff / Slide Review NO; Basophils Absolute Auto 100 /uL (0-100); Basophils Percent Auto 1.4 % (0-2); Eosinophils Absolute Auto 300 /uL (0-450); Eosinophils Percent Auto 3.1 % (2-4); Hematocrit 31.7 % (41-53); Hemoglobin 10.5 g/dL (13.5-17.5); Lymphocytes Absolute Auto 1600 /uL (1100-4500); Lymphocytes Percent Auto 19.6 % (25-40); Mean Corpuscular Hemoglobin 28.8 PG (26-34); Mean Corpuscular Volume 87.3 fL (80-100); Monocytes Absolute Auto 900 /uL (0-900); Monocytes Percent Auto 11.1 % (3-14); Neutrophils Absolute Auto 5300 /uL (1500-7000); Neutrophils Percent Auto 64.8 % (50-75); Platelet Count 264 X10^3/uL (150-400); Red Blood Cell Count 3.63 X10^6/uL (4.5-5.9); Red Cell Distribution Width 14.4 % (11.6-14.8); White Blood Cell Count 8.2 X10^3/uL (4.5-11.0)
--- NOTE | 2019-11-08 10:07 | SUR.PREOP ---
Patient has post-surgical dressing to mid back area with drainage noted underneath. states that dressing was last changed yesterday (11/07/2019). Patient was discharged from hospital on Monday.
[2019-11-08 10:11] LABS: BUN Creatinine Ratio 26.3 (6-22); Blood Urea Nitrogen 21 mg/dL (9-20); C-Reactive Protein Quant 6.3 mg/dL (<1.0); Calcium 8.9 mg/dL (8.4-10.2); Carbon Dioxide 28 mmol/L (22-32); Chloride 104 mmol/L (98-107); Estimated Glomerular Filt Rate > 60.0 mL/min (>60); Glucose 130 mg/dL (80-110); HEMOLYSIS 39 (0-50); Potassium 4.5 mmol/L (3.4-5.1); Sodium 140 mmol/L (137-145)
[2019-11-08 10:21] LABS: Erythrocyte Sedimentation Rate 26 MM/HR (0-15)
--- NOTE | 2019-11-08 11:56 | PM.PREOP ---
Pre-operative Note Interval Note History & Physical reviewed/Exam performed by Physician: Yes Changes to H&P: No H&P completed within 30 days and has changed as indicated here:: New serosanguinous drainage over past few days. Here for washout. Risks and benefits again discussed and consents obtained.
[2019-11-08] MEDS: CEFAZOLIN 2 GM/100 ML FROZ.PIGGY IV (12:29)
[2019-11-08] MEDS: VANCOMYCIN 1,000 MG VIAL 1000 MG TOP (12:32)
[2019-11-08] MEDS: SODIUM CHLORIDE 0.9% 1,000 ML, GENTAMICIN 80 MG IRR (12:33)
--- NOTE | 2019-11-08 13:12 | PM.OP.1 ---
Operative Date/Time/Diagnoses Date of procedure: 11/08/19 Time of procedure: 13:12 Pre-op diagnosis: Lumbar wound drainage, probable seroma Post-op diagnosis: same Procedure & Clinicians Procedure: Irrigation debridement of lumbar wound Same procedure as scheduled: Yes Indications: 69-year-old male with increased drainage 1 week after lumbar surgery. It was felt that it would be in the best interest for him to taken back to the operating room for a washout. Risks and benefits of surgery were discussed including not limited to medical risk with heart attack, stroke, , DVT, PE, infection, bleeding, scarring, nerve injury with pain numbness weakness paralysis, nonunion, failure to alleviate symptoms, need for further surgery Surgeon: Tc Cho Click Yes if Unassisted: Yes Anesthesia Type: General Operative Notes Findings: None Closure Type: primary Specimen(s): other (Wound cultures) Estimated Blood Loss (mL): 10 Procedure in detail: Patient brought to the operating room and intubated on the stretcher. He was rolled over to the well-padded prone position on the Valdez table. The back was prepped and draped in the standard sterile fashion. Time-out was performed. Preoperative antibiotics were held for cultures. The wound was opened up and there was a large amount of dark serous fluid consistent with a seroma. This was cultured and sent to microbiology. We then used a Ramirez to sharply debride all the superficial tissue down to healthy appearing tissue. We also debrided the muscle fascia. The wound was then copiously irrigated. We then opened up the muscle fascia and went down to the deep tissue. There was no fluid collection along the course of his laminectomy all the way down to his screws. The muscle was debrided and any devitalized pieces were removed. We cleared all the way along the dura with a ball probe and cleared off any remaining hematoma. The wound was then copiously irrigated. The fascial layer was closed in layers. A deep drain was placed. Vancomycin powder was placed in the wound. The superficial and skin were closed. Sterile dressing was placed. He was then rolled over, extubated, and brought to recovery with no complications. Complications: none Post-operative Condition: stable Disposition: PACU Plan for aftercare: Inpatient for 1-2 days. I think this is probably a seroma but I want to make sure that this is not infected and I am going to keep him on IV antibiotics. Also, he had significant postoperative oxygen desaturations after his last hospitalization and we will be able to maintain him on oxygen at least 1st night.
[2019-11-08] MEDS: HYDROMORPHONE 2 MG INJ IV ×4 (13:36→13:53)
--- NOTE | 2019-11-08 13:42 | SUR.PHASEI ---
Sumit drain light off, Dr. Cho notified and added to dressing, drain unchanged.
--- NOTE | 2019-11-08 14:43 | SUR.PHASEI ---
Arms and legs equal, weak. Reports numbness to legs.
--- NOTE | 2019-11-08 15:20 | SUR.PHASEI ---
Patient transferred to the floor on 3L o2. VS stable. Report to Jailene. Back dressings CDI. IV saline locked. Patient moving BUE and BLE. Trace edema to graciela feet and ankles. Belongings bag with patient.
[2019-11-08] MEDS: LACTATED RINGERS 1,000 ML 125 ML IV (15:37)
--- NOTE | 2019-11-08 15:58 | PC.ADMIT ---
[email or web address] Reji Grace Admission Note: The patient,Sherwin Sparks,69 y/o, was given written information regarding hospital policies, unit procedures and contact persons. Pt arrived from PACU at approx 1510. Drowsy but arousable to voice. 3L NC sats 94-96%. CPOX on. Calf SCD's on and running. BLANCA drsg to back c/d/i. Blanca cartridge orange malfunction light flashing. Per [employer] [employer] [place], surgeon is aware and requests drsg be left as is. H/V compressed and draining sang drainage. Able to wiggle toes. PPP. Cap refill less than 2 sec. Supportive at bedside helping with admission questions. Oriented to room and call system. Bed alarm on for safety. Patient's smoking status: Former smoker. Vital Signs - 8 hr 11/08/19 09:59 11/08/19 10:12 11/08/19 13:14 Temperature 97.7 F Pulse Rate 62 92 H Respiratory Rate 14 16 Blood Pressure 118/64 134/67 Pulse Oximetry 96 89 L 84 L 11/08/19 13:19 11/08/19 13:27 11/08/19 13:29 Temperature Pulse Rate 77 62 64 Respiratory Rate 11 L 13 11 L Blood Pressure 108/78 100/50 L 99/48 L Pulse Oximetry 86 L 89 L 87 L 11/08/19 13:35 11/08/19 13:44 11/08/19 13:55 Temperature Pulse Rate 59 L 56 L 59 L Respiratory Rate 7 L 15 15 Blood Pressure 102/37 L 94/45 L 94/46 L Pulse Oximetry 94 94 93 11/08/19 14:09 11/08/19 14:24 11/08/19 14:39 Temperature 97.7 F Pulse Rate 54 L 56 L 55 L Respiratory Rate 11 L 10 L 16 Blood Pressure 97/45 L 105/47 L 111/51 L Pulse Oximetry 91 91 95 11/08/19 15:10 Temperature 98.2 F Pulse Rate 59 L Respiratory Rate 17 Blood Pressure 114/57 L Pulse Oximetry 94
[2019-11-08] MEDS: CEFTRIAXONE 2 GM/50 ML FROZ.PIGGY IV (17:27)
--- NOTE | 2019-11-08 18:09 | PC.NURSE ---
Addendum entered by Kenisha Quezada R.N. 11/08/19 23:45: W[employer]CHANT x 2 to mobilize pt to commode. W[employer] MERCHANT's report pt remains sleepy while up. Unable to void. Back to bed and W[employer] MERCHANT bladder scans pt for 699 cc's. Informed pt need to straight cath to empty bladder and pt verbalizes understanding. Still does not open eyes. Straight cathed for 700 cc's clear, yellow urine. Encouraged pt to take flomax and sips water. Pt able to take hs meds with head of bed elevated. Returned to more flat lying. Noted BLANCA drain battery pack now blinking green OK. Hemovac compressed. BL calf scd's in place. Pt reports neuropathy to feet BL. Slight tremor right hand. Addendum entered by Kenisha Quezada R.N. 11/08/19 19:29: Pt wakes to voice and denies need to void. Remains npo until fully awake, alert, and engaged. Addendum entered by Kenisha Quezada R.N. 11/08/19 18:45: Frequent checks by staff. 02 3L per NC sats 98% per continuous monitor. Respiratory rates even and unlabored. Remains somnulent without distress. Original Note: Pt's spouse attentive to pt and pt's care. Pt somnulent postoperatively, but rouses to voice. Able to assist with turning for dressing check and skin check. BLANCA drain/dressing intact to back and green light not blinking, but per report, surgeon is aware. Hemovac compressed and intact to back. No drainage noted to dressing. BL calf scd's in place. Palpable pedal pulses BL. 02 3L per nc sats 93%. Spouse reports pt has h/o sleep apnea, but does not tolerate cpap. Currently left side lying with pillows to support.
[2019-11-08] MEDS: BACLOFEN 10 MG TABLET 40 MG PO (21:51)
[2019-11-08] MEDS: SENNOSIDES 8.6 MG TABLET 17.2 MG PO (21:51)
[2019-11-08] MEDS: GABAPENTIN 600 MG TABLET PO (21:51)
[2019-11-08] MEDS: DOCUSATE 100 MG CAPSULE PO (21:51)
[2019-11-08] MEDS: buPROPion SR 150 MG TAB PO (21:51)
[2019-11-08] MEDS: TAMSULOSIN 0.4 MG CAPSULE 0.8 MG PO (21:52)
[2019-11-09] VITALS (8 sets, daily range): BP systolic 113–137; BP diastolic 55–70; PULSE 54–72; RESP 16–22; TEMP 36.4–36.9; O2SAT 91–96
[2019-11-09] MEDS: LACTATED RINGERS 1,000 ML 125 ML IV (00:12)
--- NOTE | 2019-11-09 04:41 | PC.NURSE ---
Patient was confused at the start of shift with where he was and what month it was, and very groggy and hard to arouse. Patient has some tremors that he says are not baseline for him. Patient re-assessed, and patient was WNL. Patient is still on 2 liters O2 NC. Patient c/o pain, 4/10 lying down and 7/10 when ambulating out of bed. Patient medicated w/ [place] 5/325 at 0500. Patient had not eaten dinner so snacks were offered and patient agreed to eat applesauce and some crackers. VSS, lung sounds clear. PICCO dressing clean/dry/intact. Bed is low and locked, call light within reach, IS encouraged, SCD's applied, chair alarm activated.
[2019-11-09] MEDS: HYDROCODONE/ACET 5/325 TABLET 1 TAB PO ×3 (04:53→21:04)
[2019-11-09 06:37] LABS: Add Manual Diff / Slide Review NO; Basophils Absolute Auto 100 /uL (0-100); Basophils Percent Auto 0.9 % (0-2); Eosinophils Absolute Auto 200 /uL (0-450); Eosinophils Percent Auto 2.5 % (2-4); Hematocrit 29.3 % (41-53); Hemoglobin 9.4 g/dL (13.5-17.5); Lymphocytes Absolute Auto 1300 /uL (1100-4500); Lymphocytes Percent Auto 16.1 % (25-40); Mean Corpuscular HGB Conc 32.1 % (30-36); Mean Corpuscular Hemoglobin 28.5 PG (26-34); Mean Corpuscular Volume 88.8 fL (80-100); Monocytes Absolute Auto 700 /uL (0-900); Monocytes Percent Auto 8.8 % (3-14); Neutrophils Absolute Auto 5900 /uL (1500-7000); Neutrophils Percent Auto 71.7 % (50-75); Platelet Count 255 X10^3/uL (150-400); Red Cell Distribution Width 14.1 % (11.6-14.8); White Blood Cell Count 8.2 X10^3/uL (4.5-11.0)
--- NOTE | 2019-11-09 07:31 | PM.PNPO.1 ---
Subjective Subjective Date Patient Seen: 11/09/19 Time Patient Seen: 07:31 Interval history: His back is sore, but he is up and moving around. Exam Vital Signs (past 8 hours): - 11/09/19 00:22 11/09/19 04:41 Temperature 97.5 F L 97.6 F Pulse Rate 61 72 Respiratory Rate 16 20 Blood Pressure 132/57 L 133/68 Pulse Oximetry 94 93 Oxygen Delivery Method Nasal Cannula Oxygen Flow Rate 3 Const Orientation: alert and oriented x3 Back/Spine/Pelvis Other: Dressing CDI. Output 70/30 over last 2 shifts. 5/5 motor both lower extremities Objective Labs Result Diagrams: 11/09/19 05:49 11/08/19 09:52 Labs: Laboratory Results - last 24 hr 11/08/19 11/08/19 11/09/19 09:52 09:52 05:49 WBC 8.2 8.2 RBC 3.63 L 3.30 L Hgb 10.5 L 9.4 L Hct 31.7 L 29.3 L MCV 87.3 88.8 MCH 28.8 28.5 MCHC 33.0 32.1 RDW 14.4 14.1 Plt Count 264 255 Neut % (Auto) 64.8 71.7 Lymph % (Auto) 19.6 L 16.1 L [place] % (Auto) 11.1 8.8 Eos % (Auto) 3.1 2.5 Baso % (Auto) 1.4 0.9 Neut # (Auto) 5300 5900 Lymph # (Auto) 1600 1300 [place] # (Auto) 900 700 Eos # (Auto) 300 200 Baso # (Auto) 100 100 ESR 26 H Sodium 140 Potassium 4.5 Chloride 104 Carbon Dioxide 28 BUN 21 H Creatinine 0.80 Estimated GFR > 60.0 BUN/Creatinine Ratio 26.3 H Glucose 130 H Calcium 8.9 C-Reactive Protein 6.3 H Assessment & Plan Post-op Postoperative Procedures: Procedures Operation Date: 11/08/19 11:00 Actual Procedures Side Surgeon p Incision and Drainage Wound/Spine Tc Cho MD Gram stain showed no organisms and no growth to date on cultures. I think this most likely was a postoperative seroma. If the drainage continues to dry up today possibly discharge home this afternoon, if not given 1 more day and plan to discharge tomorrow. For now continue on IV antibiotics in case this is an early wound infection as well as when he goes home will go home on oral antibiotics.
[2019-11-09] MEDS: BACLOFEN 10 MG TABLET 20 MG PO (08:23)
[2019-11-09] MEDS: DOCUSATE 100 MG CAPSULE PO ×2 (08:23→20:59)
[2019-11-09] MEDS: DULOXETINE 30 MG CAPSULE PO (08:23)
[2019-11-09] MEDS: INSULIN ASPART 100 UNIT/ML INSULN PEN SUBCUT ×2 (08:23→11:58)
[2019-11-09] MEDS: buPROPion SR 150 MG TAB PO ×2 (08:23→20:59)
[2019-11-09] MEDS: METFORMIN HCL 500 MG TABLET 1000 MG PO ×2 (08:23→16:14)
[2019-11-09] MEDS: FERROUS SULFATE 325 MG TABLET 650 MG PO (08:23)
[2019-11-09] MEDS: ATORVASTATIN 20 MG TABLET PO (08:23)
[2019-11-09] MEDS: TAMSULOSIN 0.4 MG CAPSULE PO (08:23)
[2019-11-09] MEDS: ASPIRIN 325 MG TABLET PO (08:23)
--- NOTE | 2019-11-09 10:11 | PT.IIE ---
Current Diagnoses Other injury of unspecified body region, initial encounter (11/08/19) Arthrodesis status (11/08/19) Surgery Performed Operation Date: 11/08/19 11:00 Actual Procedures p Incision and Drainage Wound/Spine - Tc Cho MD Surgical History (Last Reviewed 05/08/18 @ 16:14 by Sherif Melgoza MD) History of spinal fusion Medical History (Last Updated 09/30/19 @ 13:26 by Kellee Salinas RN) Adopted (Acute) Anxiety (Acute) BPH (benign prostatic hyperplasia) (Chronic) Cervical myelopathy (Chronic 11/16/17) Cervical stenosis of spinal canal (Acute) Claustrophobia (Acute) Depression (Acute) Easy bruisability (Acute) Essential hypertension (Chronic 07/14/14) Iron deficiency (Chronic 07/31/17) Mixed hyperlipidemia (Chronic 01/24/12) Myelopathy (Acute) Panic disorder (Chronic) Poor sleep (Acute) 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) Recurrent major depressive disorder, in full remission (Chronic) RLS (restless legs syndrome) (Acute) Shortness of breath (Acute) Type 2 diabetes mellitus without complication (Chronic) Undescended testicle of both sides (Acute) Physical Therapy Inpatient Evaluation/Re-Eval M1 PT/OT-IP Prior Functional Status Start: 11/09/19 12:25 Freq: NEEDED Status: Active Protocol: Document 11/09/19 10:11 AB (Rec: 11/09/19 13:21 AB [id number]) Medical Review Prior Functional Status Medical History Reviewed Yes Communication able to make needs known Mobility and Gait spouse stated that she provides SBA to pt per doctor' s order. pt is able to ambulate using a FWW. Prior Functional Level (Other details) pt with recent back surgery and just went home ~ 1-2 days ago and went back for I&D of lumbar wound. Social History Household Members spouse Living Arrangements House Number of Floors (Floors) Two Floors Number of Stairs To Enter/Railing? pt stays on main level of the house has 2 platform steps to enter Home Environment Standard Height Toilet,Walk in Shower Home Equipment Front Wheel Walker,Four Wheel Walker,Quad Cane,Straight Cane ,Raised Toilet Seat Without Armrests,Shower Seat with Backrest,Hand Held Shower,Lift Recliner,Grab Bars Near Toilet M2 PT-IP Current Condition Start: 11/09/19 12:25 Freq: NEEDED Status: Active Protocol: Document 11/09/19 10:11 AB (Rec: 11/09/19 13:21 AB [id number]) Physical Therapy Current Condition Current Condition Evaluation Date 11/09/19 Treatment Diagnosis s/p I&D lumbar wound; difficulty in walking Onset Date 11/08/2019 Precautions Lumbar Precautions Log Roll,No Twisting,Limit Bending,Lifting Restriction of 10 lbs,Gait Belt above Incisional Area M3 PT-IP Subjective Start: 11/09/19 12:25 Freq: NEEDED Status: Active Protocol: Document 11/09/19 10:11 AB (Rec: 11/09/19 13:21 AB [id number]) Subjective Physical Therapy Visit Type Type Initial Evaluation Visit Start Time 10:11 Visit Stop Time 10:37 Total Visit Minutes 26 Number of EMBLEM MAKER Visits 0 Physical Therapy Visit Comments Patient Comments pt agreeable to do PT Therapy Pain Assessment Pain When Pain Assessed At Rest Pain Present Pain Present Pain Reported Location lower back Intensity 4 Scale Used Numeric (1 - 10) Pain Management Techniques Re-positioning,Timing of Activity with Medications M4 PT-IP Mobility and Gait Start: 11/09/19 12:25 Freq: NEEDED Status: Active Protocol: Document 11/09/19 10:11 AB (Rec: 11/09/19 13:21 AB [id number]) PT-Bed Mobility Assessment Rolling Type of Rolling Log Rolling Level of Assist Minimal Assistance,1 Person Assistance Supine to Sit Supine to Sit Minimal Assistance,Bedrails Sit to Supine Sit to Supine Minimal Assistance,Bedrails PT-Transfer Assessment Sit to and From Stand Sit to and from Stand Standby Assistance,Contact Guard Assistance,1 Person Assistance,Use of Upper Extremities Equipment Transfer Assistive Device Gait Belt,Front Wheeled Walker Orthotic/Prosthetic Devices or Brace: No Transfer Ability Level of Assist Standby Assistance,Contact Guard Assistance,1 Person Assistance,Use of Upper Extremities Comments Mobility Comments spouse in room with pt and assisted pt with mobility. pt completed supine to sit min A and cues. completed sit to stand CGA and ambulated in room SBA to CGA ~ 50 ft using FWW. pt stated that he is tired and wants to go back to bed and completed sit to supine with spouse assisting. positioned pt in bed. call light and table placed within reach. O2 sat with 3L/min O2: 93%. attempted at room air and O2 sat decreased to 85%. put O2 back on prior to mobility Gait Assessment Gait Gait Assistance Required: Standby Assistance,Contact Guard Assist Distance (Feet) 50 Able to Maintain Weight Bearing Status Yes During Gait Assistive Devices Assistive Device Gait Belt,Front Wheeled Walker Orthotic/Prosthetic Devices or Brace: No Gait Deviations General Gait Pattern Antalgic,Decreased Stride Length,Decreased Feet Clearance,Flexed Trunk Factors Limiting Gait Function Factors Limiting Gait Function Decreased Activity Tolerance, Decreased Strength,Limited Range of Motion,Pain,Poor Balance,Poor Safety Awareness, Respiratory Distress Comments Gait Comments pls refer to mobility section for details PT-Balance Assessment Sitting Balance and Reactions Static Sitting Balance Ability Good Dynamic Sitting Balance Ability Good Standing Balance and Reactions Static Standing Balance Ability Fair Dynamic Standing Balance Ability Fair Device Used FWW M5 PT-IP Objective Assessments Start: 11/09/19 12:25 Freq: NEEDED Status: Active Protocol: Document 11/09/19 10:11 AB (Rec: 11/09/19 13:21 AB [id number]) Orientation Orientation/Cognition Level of Alertness Alert Orientation Name,Place,Situation Safety Awareness Decreased Safety Awareness Gross Range of Motion Lower Extremity ROM Assessment Within Functional Limits Strength Lower Extremity Strength Hip 4-/5 Knee 4-/5 Coordination Assessment Gross Coordination Gross Coordination WNL Sensation Assessment Sensation Gross Sensation WNL Muscle Tone Muscle Tone WNL Yes M6 PT-IP Treatment Start: 11/09/19 12:25 Freq: NEEDED Status: Active Protocol: Document 11/09/19 10:11 AB (Rec: 11/09/19 13:21 AB [id number]) Physical Therapy Treatment Education Education Provided Precautions,Safety M7 PT-IP Assessment and Plan Start: 11/09/19 12:25 Freq: NEEDED Status: Active Protocol: Document 11/09/19 10:11 AB (Rec: 11/09/19 13:21 AB [id number]) PT Summary Assessment and Plan Potential Rehabilitation Potential Good Status of Condition at Evaluation Stable Summary Impairments Pain,ROM,Strength,Balance, Coordination,Sensation,Tone, Cognition,Bed Mobility, Transfers,Gait,Activity Tolerance Assessment Summary pt requiring SBA to [facility] with transfers and ambulation. pt just had back surgery here in this hospital a few days ago and was d/c'd home. caregiver training was conducted when pt was here and spouse is still able to assist pt with mobility. pt may go home when medically stable with spouse to assist. Goals Bed Mobility Goal Independent Transfer Goal Independent,Front Wheeled Walker Gait Goal Independent,Front Wheel Walker Gait Distance 200 Other Goals up/down platform step SBA using FWW Days to Meet Goals 5 Frequency of Treatment Frequency Of Treatment Once a Day Treatment Plan Physical Therapy Treatment Plan Bed Mobility Training,Transfer Training,Gait Training, Therapeutic Exercise,Balance Retraining,Post Op Education, Discharge Planning,Hot or Cold Pack,Neuromuscular Re-ed, Coordination Retraining,Manual Therapy Other Recommendations and Next Treatment ambulation Focus Recommendations To Nursing Amount of Assist Needed 1 Person Assist Discharge Recommendations PT Discharge Recommendations Home with Assistance Transportation Needs at Discharge Private Vehicle
--- NOTE | 2019-11-09 11:15 | PC.NURSE ---
Addendum entered by Katie Frias R.N. 11/09/19 15:33: called and asked about drainage in hemovac, he had 25cc out. He will be discharged home tomorrow. Sumit dressing not flashing green, and is aware of this. Original Note: Assess-Patient denies pain, he is slightly groggy but A&Ox3. Lower back dressing is cdi, with hemovac present. This is putting out a small amount of bloody drainage. in and did rounds, states that he may be back later and if patient has lower than 30cc of drainage in his hemovac he may be able to discharge home. Denies any numbness or tingling and is attentive to husbands needs.
[2019-11-09] MEDS: CEFTRIAXONE 2 GM/50 ML FROZ.PIGGY IV (16:14)
--- NOTE | 2019-11-09 16:41 | PC.NURSE ---
Patient is sitting up to chair patiently waiting for dinner to arrive, is at bedside visiting. Pt reports pain 4/10, treatment given per MAR orders. Pt declines using ice for discomfort at this time. Pt does report feeling constipated, discussed options for treatment that are available to him at this time. Pt reports he wishes to wait until dinner to take MOM and states later on he might want to try prune juice. Nurse and patient are both agreeable to plan of care. Pt call light w/in reach, aware to call w/ needs. IV antibx infusing at this time, pt to be SL post infusion completion.
[2019-11-09] MEDS: MAGNESIUM HYDROXIDE 30 ML UDC PO (18:05)
[2019-11-09] MEDS: AMLODIPINE 5 MG TABLET PO (20:58)
[2019-11-09] MEDS: BACLOFEN 10 MG TABLET 40 MG PO (20:59)
[2019-11-09] MEDS: SENNOSIDES 8.6 MG TABLET 17.2 MG PO (20:59)
[2019-11-09] MEDS: clonazePAM 0.5 MG TABLET PO (20:59)
[2019-11-09] MEDS: TAMSULOSIN 0.4 MG CAPSULE 0.8 MG PO (20:59)
[2019-11-09] MEDS: GABAPENTIN 600 MG TABLET PO (20:59)
[2019-11-10 00:47] VITALS: BP 157/73; PULSE 89; RESP 16; TEMP 36.9; O2SAT 92
[2019-11-10 03:10] VITALS: BP 131/69; PULSE 68; RESP 16; TEMP 36.9; O2SAT 91
[2019-11-10] MEDS: HYDROCODONE/ACET 5/325 TABLET 1 TAB PO ×2 (03:52→10:59)
--- NOTE | 2019-11-10 06:25 | PC.NURSE ---
Patient has had 7cc drainage out of hemovac. VSS. Pain 4/10, Q4 [place] given. CMS intact. Dressing is clean/dry/intact.
--- NOTE | 2019-11-10 07:34 | P.PN_ITS ---
Subjective Subjective Date Patient Seen: 11/10/19 Time Patient Seen: 07:38 Interval history: He is doing well. Moving independently. Exam Vital Signs (past 8 hours): - 11/10/19 00:47 11/10/19 03:10 Temperature 98.4 F 98.4 F Pulse Rate 89 68 Respiratory Rate 16 16 Blood Pressure 157/73 H 131/69 Pulse Oximetry 92 91 Oxygen Delivery Method Nasal Cannula,Humidification Oxygen Flow Rate 2 Const Orientation: alert and oriented x3 Back/Spine/Pelvis Other: CDI drain output 25/5/7 5/5 motor both lower extremities Objective Labs Result Diagrams: 11/09/19 05:49 11/08/19 09:52 Labs: Laboratory Results - last 24 hr 11/09/19 05:49 WBC 8.2 RBC 3.30 L Hgb 9.4 L Hct 29.3 L MCV 88.8 MCH 28.5 MCHC 32.1 RDW 14.1 Plt Count 255 Neut % (Auto) 71.7 Lymph % (Auto) 16.1 L [place] % (Auto) 8.8 Eos % (Auto) 2.5 Baso % (Auto) 0.9 Neut # (Auto) 5900 Lymph # (Auto) 1300 [place] # (Auto) 700 Eos # (Auto) 200 Baso # (Auto) 100 Assessment & Plan Post-op Postoperative Procedures: Procedures Operation Date: 11/08/19 11:00 Actual Procedures Side Surgeon p Incision and Drainage Wound/Spine cT Cho MD he is doing well. The drain has dried up. Nothing is growing from his cultures, I think this is probably a postoperative seroma. Plan to discharge home today. I will send him home on Keflex to be safe.
--- NOTE | 2019-11-10 07:39 | P.DS_ITS ---
History of Present Illness History of Present Illness Date Patient Seen: 11/10/19 Time Patient Seen: 07:40 Chief complaint: 95562 I&D WOUND/SPINECOPAY $360.00 Narrative: 69-year-old male who underwent a L2 through S1 laminectomy with an L5-S1 instrumented fusion on 10/31/2019. He had heavy drainage from his lumbar wound for the 1st few days postoperatively but then it began drying up. He states 5 days in the hospital primarily due to low oxygen saturation which had been felt to be coming from some fluid overload as well as probably his baseline pulmonary status. The day after he was discharged his called up and he was having significantly increased drainage with new red fluid. Was felt that he most likely had a draining seroma and would need to be taken to the operating room to wash this out. He was not having any fevers or chills. He is doing well pain ann. Discharge Providers Provider Discharge Date: 11/10/19 Primary care physician: Elton Dang MD Consults: 11/08/19 15:22 Consult to Occupational Therapy Evaluate & Treat Comment: Physician Instructions: Evaluate and treat Consult to Physical Therapy Evaluate & Treat Comment: Physician Instructions: Evaluate and Treat Discharge provider: Tc Cho MD Summary Hospital Course Discharge Diagnosis: Lumbar wound seroma Hospital Course: He was brought back to the operating room on 11/08/2019 where he underwent irrigation debridement of the lumbar wound. There was a large fluid collection in the posterior superficial space but this did not appear to track down to the deep tissue. This was cultured but there were no bacteria on Gram stain and nothing grew out of his cultures. He was admitted for IV antibiotics. He had approximately 30 mL of drain output per shift the 1st day but this dried up the 2nd day. He was mobilizing well was felt that he was stable for discharge. Status at Discharge Cognitive/behavioral status at discharge: oriented Functional status at discharge: uses cane/walker Overall status at discharge: patient is progressing back to baseline Exam Vital Signs (past 8 hours): - 11/10/19 00:47 11/10/19 03:10 Temperature 98.4 F 98.4 F Pulse Rate 89 68 Respiratory Rate 16 16 Blood Pressure 157/73 H 131/69 Pulse Oximetry 92 91 Oxygen Delivery Method Nasal Cannula,Humidification Oxygen Flow Rate 2 Const Orientation: alert and oriented x3 Back/Spine/Pelvis Other: CDI. 5/5 motor both lower extremities Objective Labs Result Diagrams: 11/09/19 05:49 11/08/19 09:52 Labs: Laboratory Results - last 24 hr 11/09/19 05:49 WBC 8.2 RBC 3.30 L Hgb 9.4 L Hct 29.3 L MCV 88.8 MCH 28.5 MCHC 32.1 RDW 14.1 Plt Count 255 Neut % (Auto) 71.7 Lymph % (Auto) 16.1 L [place] % (Auto) 8.8 Eos % (Auto) 2.5 Baso % (Auto) 0.9 Neut # (Auto) 5900 Lymph # (Auto) 1300 [place] # (Auto) 700 Eos # (Auto) 200 Baso # (Auto) 100 Discharge Plan Discharge Plan Patient Disposition: Home Discharge comment: f/u Wed for wound check. OK to restart Plavix Discharge Med Rec/Prescriptions Prescriptions: New cephalexin 500 mg capsule 500 mg PO QID Qty: 40 RF: 0 hydrocodone-acetaminophen 5-325 mg Tablet 1 tab PO Q4HR PRN (Reason: Pain, Moderate (4-6)) Qty: 15 RF: 0 Continued aspirin 325 mg Tablet 325 mg PO DAILY Qty: 0 RF: 0 ferrous sulfate [iron] 325 mg (65 mg iron) Tablet 650 mg PO DAILY Qty: 0 RF: 0 albuterol sulfate [Ventolin HFA] 90 mcg/actuation HFA aerosol inhaler 1 puff INHALATION PRN PRN (Reason: bronchospasm) Qty: 18 RF: 3 atorvastatin [Lipitor] 20 mg tablet 20 mg PO QDAY Qty: 90 RF: 3 lisinopril 20 mg tablet 20 mg PO QDAY Qty: 90 RF: 3 baclofen 20 mg tablet See Rx Instructions .ROUTE .COMPLEX Qty: 270 RF: 3 clonazepam 1 mg tablet 0.5 mg PO HS Qty: 30 RF: 3 bupropion HCl 150 mg tablet sustained-release 12 hr See Rx Instructions .ROUTE .COMPLEX Qty: 60 RF: 0 amlodipine 5 mg Tablet 5 mg PO BID RF: 0 duloxetine 30 mg Capsule,Delayed Release(Dr/Ec) 30 mg PO DAILY RF: 0 metformin [Glucophage] 500 mg tablet 1,000 mg PO BIDCC RF: 0 clopidogrel 75 mg tablet 75 mg PO DAILY RF: 0 tamsulosin [Flomax] 0.4 mg capsule 0.12 mg PO QDAY RF: 0 Qvar RediHaler 80 mcg/actuation Hfa Aerosol Breath Activated 1 inh INHALATION BID PRN (Reason: Shortness Of Breath) RF: 0 gabapentin 600 mg Tablet 600 mg PO BEDTIME RF: 0 docusate sodium [DOK] 100 mg Capsule 100 mg PO BID PRN (Reason: constipation) Qty: 30 RF: 0 hydrocodone-acetaminophen 5-325 mg Tablet 1 tab PO Q4HR PRN (Reason: Pain, Moderate (4-6)) Qty: 25 RF: 0 hydroxyzine pamoate 25 mg Capsule 25 mg PO Q4HR PRN (Reason: spasms) Qty: 20 RF: 0 Discharge Orders: Discharge (Order); Ordered 11/10/19 Ordered By: Tc Cho Provider Discharge Instructions Diet: Carb-consistent/Diabetic Activity: limited BLT 10 lbs max lift Skin/Wound/Dressing Care Report to your healthcare provider any signs of infection, such as:: chills, fever, night sweats, increased pain, unusual drainage and unusual redness Dressing: may shower with this dressing, keep intact until office appt Visit Report/Discharge Packet Instructions: DI for Incision and Drainage Stand Alone Forms: Surgery Discharge Discharge Data Primary Care Provider: Elton Dang Attending Provider: Tc Cho
[2019-11-10 07:55] VITALS: BP 121/58; PULSE 57; RESP 16; TEMP 36.4; O2SAT 92
--- NOTE | 2019-11-10 08:33 | CM.DPC ---
DCP Discharge Home Per Ortho MD, pt medically stable to d/c home today with spouse and no identified barriers to discharge. Per PT, recommending safe d/c home with spouse assist and safe for transport by private vehicle. Plan: Patient to d/c home today via spouse POV and no SW needs at this time. TIN Thompson
[2019-11-10] MEDS: FERROUS SULFATE 325 MG TABLET 650 MG PO (09:21)
[2019-11-10] MEDS: BACLOFEN 10 MG TABLET 20 MG PO (09:21)
[2019-11-10] MEDS: lisinopriL 20 MG TABLET PO (09:21)
[2019-11-10] MEDS: buPROPion SR 150 MG TAB PO (09:21)
[2019-11-10] MEDS: ASPIRIN 325 MG TABLET PO (09:21)
[2019-11-10] MEDS: DULOXETINE 30 MG CAPSULE PO (09:22)
[2019-11-10] MEDS: METFORMIN HCL 500 MG TABLET 1000 MG PO (09:22)
[2019-11-10] MEDS: TAMSULOSIN 0.4 MG CAPSULE PO (09:23)
[2019-11-10] MEDS: ATORVASTATIN 20 MG TABLET PO (09:23)
[2019-11-10] MEDS: AMLODIPINE 5 MG TABLET PO (09:23)
[2019-11-10] MEDS: DOCUSATE 100 MG CAPSULE PO (09:23)
[2019-11-10 09:33] VITALS: PULSE 69; O2SAT 94
--- NOTE | 2019-11-10 10:06 | PT.IPTN ---
Current Diagnoses Other injury of unspecified body region, initial encounter (11/09/19) Arthrodesis status (11/09/19) Surgery Performed Operation Date: 11/08/19 11:00 Actual Procedures p Incision and Drainage Wound/Spine - Tc Cho MD Physical Therapy Treatment Note M2 PT-IP Current Condition Start: 11/09/19 12:25 Freq: NEEDED Status: Active Protocol: Document 11/09/19 10:11 AB (Rec: 11/09/19 13:21 AB [id number]) Physical Therapy Current Condition Current Condition Evaluation Date 11/09/19 Treatment Diagnosis s/p I&D lumbar wound; difficulty in walking Onset Date 11/08/2019 Precautions Lumbar Precautions Log Roll,No Twisting,Limit Bending,Lifting Restriction of 10 lbs,Gait Belt above Incisional Area M3 PT-IP Subjective Start: 11/09/19 12:25 Freq: NEEDED Status: Active Protocol: Document 11/10/19 09:58 AW (Rec: 11/10/19 10:05 AW [id number]) Subjective Physical Therapy Visit Type Type Treatment Note Visit Start Time 09:42 Visit Stop Time 09:56 Total Visit Minutes 14 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 Physical Therapy Visit Comments Patient Comments Pt preparing for discharge, willing to participate with PT Therapy Pain Assessment Pain When Pain Assessed During Mobility Pain Present Pain Present Pain Reported Location lower back Intensity 3 Scale Used Numeric (1 - 10) Pain Management Techniques Re-positioning,Timing of Activity with Medications M4 PT-IP Mobility and Gait Start: 11/09/19 12:25 Freq: NEEDED Status: Active Protocol: Document 11/10/19 09:58 AW (Rec: 11/10/19 10:05 AW [id number]) PT-Transfer Assessment Sit to and From Stand Sit to and from Stand Standby Assistance,Use of Upper Extremities Equipment Transfer Assistive Device Gait Belt,Front Wheeled Walker Orthotic/Prosthetic Devices or Brace: No Transfers Transfer Destination Chair Transfer Technique pt ambulated with FWW Transfer Ability Level of Assist Standby Assistance,Use of Upper Extremities Comments Mobility Comments Spouse in room demonstrated use of gait belt without verbal cues. She provided appropriate assist to the pt throughout the session. Pt transferred from and to the chair SBA. Gait Assessment Gait Gait Assistance Required: Standby Assistance Distance (Feet) 350 Assistive Devices Assistive Device Gait Belt,Front Wheeled Walker Orthotic/Prosthetic Devices or Brace: No Gait Deviations General Gait Pattern Antalgic,Decreased Stride Length,Decreased Feet Clearance,Flexed Trunk Factors Limiting Gait Function Factors Limiting Gait Function Decreased Activity Tolerance, Decreased Strength,Limited Range of Motion,Pain,Poor Balance,Poor Safety Awareness, Respiratory Distress Comments Gait Comments Pt ambulated in the halls using FWW SBA. He required cues to keep the walker closer to his body. Whitley and step lengths were near baseline per pt and his . Stair Climbing Assessment Evaluation Level of Assist On Stairs Standby Assistance Devices Stair Climbing Assistive Devices Front Wheel Walker Technique/Endurance Stair Climbing Direction Ascend and Descend Stair Climbing Technique Step to Step Number of Steps Climbed 1 Stair Climbing Set # Repetitions (reps) 2 Comments Stair Climbing Comments Pt climbed platform step with FWW SBA. After demo to keep walker closer to his trunk, pt improved his technique. M5 PT-IP Objective Assessments Start: 11/09/19 12:25 Freq: NEEDED Status: Active Protocol: Document 11/09/19 10:11 AB (Rec: 11/09/19 13:21 AB [id number]) Orientation Orientation/Cognition Level of Alertness Alert Orientation Name,Place,Situation Safety Awareness Decreased Safety Awareness Gross Range of Motion Lower Extremity ROM Assessment Within Functional Limits Strength Lower Extremity Strength Hip 4-/5 Knee 4-/5 Coordination Assessment Gross Coordination Gross Coordination WNL Sensation Assessment Sensation Gross Sensation WNL Muscle Tone Muscle Tone WNL Yes M6 PT-IP Treatment Start: 11/09/19 12:25 Freq: NEEDED Status: Active Protocol: Document 11/10/19 09:58 AW (Rec: 11/10/19 10:05 AW [id number]) Physical Therapy Treatment Education Education Provided Precautions,Safety M7 PT-IP Assessment and Plan Start: 11/09/19 12:25 Freq: NEEDED Status: Active Protocol: Document 11/10/19 09:58 AW (Rec: 11/10/19 10:05 AW [id number]) PT Summary Assessment and Plan Summary Impairments Pain,ROM,Strength,Balance, Coordination,Sensation,Tone, Cognition,Bed Mobility, Transfers,Gait,Activity Tolerance Progress Towards Goals Progressing Toward Goals Assessment Summary Pt progressing toward goals but continues to require SBA and cues for safety with FWW which his is able to provide. Pt is safe for discharge to home with his 's assistance once medically stable. Goals Bed Mobility Goal Independent Transfer Goal Independent,Front Wheeled Walker Gait Goal Independent,Front Wheel Walker Gait Distance 200 Other Goals up/down platform step SBA using FWW Days to Meet Goals 3 Frequency of Treatment Frequency Of Treatment Once a Day Treatment Plan Physical Therapy Treatment Plan Bed Mobility Training,Transfer Training,Gait Training, Therapeutic Exercise,Balance Retraining,Post Op Education, Discharge Planning,Hot or Cold Pack,Neuromuscular Re-ed, Coordination Retraining,Manual Therapy Recommendations To Nursing Amount of Assist Needed Standby Assistance Discharge Recommendations PT Discharge Recommendations Home with Assistance Transportation Needs at Discharge Private Vehicle
--- NOTE | 2019-11-10 11:20 | PC.NURSE ---
Hemovac and rené dressing removed, intact no resistance. Pt tolerated well. Mead dressing applied.
--- NOTE | 2019-11-10 13:04 | PC.NURSE ---
Pt discharged in wheelchair. Accompanied by and WHARF ATTENDANT.
== END 2019-11-10 12:45 | disposition home or self-care (01) ==
LOC: OR 11-10 08:11 → AC 11-10 08:11
PROVIDERS: Admitting Provider Orthopaedic Surgery; PCP Family Medicine; Referring Provider Orthopaedic Surgery; Visit Provider Orthopaedic Surgery
PROC: (CPT 10180; principal; 2019-11-08 11:00)
DX: L76.34 Postprocedural seroma of skin and subcutaneous tissue following other procedure (principal); Z98.1 Arthrodesis status; E11.9 Type 2 diabetes mellitus without complications; I10 Essential (primary) hypertension; J45.909 Unspecified asthma, uncomplicated; Z86.73 Personal history of transient ischemic attack (TIA), and cerebral infarction without residual deficits; Z79.84 Long term (current) use of oral hypoglycemic drugs; Z79.01 Long term (current) use of anticoagulants
CPT/HCPCS: 11043; 36415; 80048; 82962; 85025; 85651; 86140; 87070; 87075; 87077; 87147; 87186; 87205; 94760; 97116; 97161; 97165; 97535; G0378; J0330; J0690; J0696; J1170; J2405; J2704

== ENCOUNTER 2020-02-13 07:39 | Inpatient (IN) | payer OTHER, SELFPAY ==
[2019-11-08 15:47] VITALS: BMI 36.6
[2020-02-13] VITALS (19 sets, daily range): BP systolic 95–175; BP diastolic 46–75; PULSE 63–89; RESP 13–25; TEMP 36.2–37.5; O2SAT 93–100; BMI 36.6
--- NOTE | 2020-02-13 07:45 | DI.CT.S_ITS ---
PROCEDURE: CT HEAD/BRAIN WO CON INDICATIONS: dizziness TECHNIQUE: Noncontrast 4.5 mm thick angled axial sections acquired from the foramen magnum to the vertex, with coronal and sagittal reformats. For radiation dose reduction, the following was used: automated exposure control, adjustment of mA and/or kV according to patient size. COMPARISON: [facility], CT, HEAD WITHOUT CONTRAST, 12/24/2012, 8:04. FINDINGS: Image quality: Excellent. CSF spaces: Basal cisterns are patent. No extra-axial fluid collections. The ventricles are symmetric in size and shape. Brain: No intracranial bleeds or masses. There is mild cerebral volume loss for age, with resultant ventricular and sulcal prominence. There are mild periventricular and deep white matter chronic small vessel ischemic changes. There is intracranial internal carotid artery atherosclerosis. Skull and face: Calvarium and visualized facial bones appear intact, without suspicious lesions. Sinuses: Visualized sinuses and mastoids are clear. IMPRESSION: 1. No acute intracranial abnormalities. 2. Mild cerebral volume loss and chronic microvascular ischemic changes. Dictated by: Wesley Umana M.D. on 02/13/2020 at 8:38 Approved by: eWsley Umana M.D. on 02/13/2020 at 8:40
[2020-02-13 07:49] LABS: Add Manual Diff / Slide Review NO; Basophils Absolute Auto 100 /uL (0-100); Basophils Percent Auto 0.7 % (0-2); Eosinophils Absolute Auto 100 /uL (0-450); Hematocrit 23.8 % (41-53); Hemoglobin 7.7 g/dL (13.5-17.5); Lymphocytes Absolute Auto 2400 /uL (1100-4500); Lymphocytes Percent Auto 25.5 % (25-40); Mean Corpuscular HGB Conc 32.5 % (30-36); Mean Corpuscular Hemoglobin 27.6 PG (26-34); Mean Corpuscular Volume 84.9 fL (80-100); Monocytes Absolute Auto 800 /uL (0-900); Monocytes Percent Auto 8.2 % (3-14); Neutrophils Absolute Auto 6000 /uL (1500-7000); Neutrophils Percent Auto 64.6 % (50-75); Platelet Count 223 X10^3/uL (150-400); Red Cell Distribution Width 18.3 % (11.6-14.8); White Blood Cell Count 9.3 X10^3/uL (4.5-11.0)
--- NOTE | 2020-02-13 07:52 | ED.SOB ---
HPI - SOB/Dyspnea General Chief Complaint: Shortness of Breath/Dyspnea Stated Complaint: 3x Falls, SOB Time Seen by Provider: 02/13/20 07:45 Source: patient and EMS Mode of arrival: EMS Limitations: no limitations History of Present Illness HPI Narrative: Patient is a 69-year-old male history of stroke diabetes and hypertension presenting with increased falls dizziness lightheadedness shortness of breath and hypotension. He states he was doing well yesterday until he threw up 1 time. Since then he has fallen twice last evening and once this morning and has been more confused according to the . He feels extremely dizzy lightheaded every time he stands up. He also feels some shortness of breath but denies any cough fever or chest pain. No weakness numbness or tingling. He said he woke up yesterday morning and felt something with a little bit off the day before that he was hiking. states that he had back surgery in November and has been working in the yard ever since then. Related Data Home Medications Medication Instructions Recorded Confirmed aspirin 81 mg PO DAILY #0 01/24/12 02/13/20 ferrous sulfate [iron] 650 mg PO DAILY #0 11/22/16 02/13/20 Qvar RediHaler 1 inh INHALATION BID PRN 09/30/19 02/13/20 amlodipine 10 mg PO BEDTIME 09/30/19 02/13/20 clopidogrel 75 mg PO DAILY 09/30/19 02/13/20 duloxetine 30 mg PO BEDTIME 09/30/19 02/13/20 metformin [Glucophage] 1,000 mg PO BIDCC 09/30/19 02/13/20 tamsulosin [Flomax] 0.12 mg PO QDAY 09/30/19 02/13/20 gabapentin 600 mg PO BID 10/31/19 02/13/20 atorvastatin [Lipitor] 20 mg PO BEDTIME 02/13/20 02/13/20 Previous Rx's Medication Instructions Recorded lisinopril 20 mg PO QDAY #90 tab 09/07/18 baclofen 20 mg tablet See Rx Instructions .ROUTE 02/04/19 .COMPLEX #270 tab clonazepam 1 mg tablet 0.5 mg PO HS #30 tab 04/24/19 albuterol sulfate 90 mcg/actuation 1 puff INHALATION PRN PRN #18 12/03/19 aerosol inhaler inhalation Allergies Allergy/AdvReac Type Severity Reaction Status Date / Time No Known Drug Allergies Allergy Verified 02/13/20 07:49 Review of Systems Review of Systems Narrative: GENERAL: Denies chills, fatigue, malaise, fever, sweats, travel HEENT: Denies sinus pain, ear pain, sore throat, difficulty swallowing, neck pain RESPIRATORY: See HPI CARDIOVASCULAR: Denies chest pain, palpitations, orthopnea, edema GASTROINTESTINAL: Denies nausea, vomiting, abdominal pain, diarrhea, constipation, melena. : Denies dysuria, frequency, incontinence, hematuria, urinary retention, flank pain. MUSCULOSKELETAL: Denies weakness, joint pain, or bony pain SKIN: No rash, no erythema, no pruritus NEUROLOGIC: Frequent falls PSYCHIATRIC: No concerning psychosocial issues. 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[employer]: [employer] travel history: recurrent ([place] every 1-2 years.) leisure activities: reading and other (Gardening) Smoking Status: Former smoker Tobacco: How many years used: 40 Smokeless tobacco user: other (Cigarettes) quit status: quit date established (2005) second hand exposure: No alcohol intake: current substance use type: does not use Smoking Status: Former smoker alcohol intake frequency: holidays/special occasions only Substance Use Type: does not use Exam Initial Vital Signs Initial Vital Signs: Vital Signs Pulse Rate 68 02/13/20 07:40 Respiratory Rate 20 02/13/20 07:40 Blood Pressure 102/57 L 02/13/20 07:40 Pulse Oximetry 100 02/13/20 07:40 GENERAL: Alert slightly pale HEENT: Head atraumatic,EOMI, pupils reactive, face symmetric CARDIOVASCULAR: Regular rate and rhythm without murmurs, rubs or gallops. RESPIRATORY: Breath sounds equal bilaterally, no wheezes rales or rhonchi. ABDOMEN: Soft, nontender. Normoactive bowel sounds all 4 quadrants. No guarding or rebound. RECTAL: Guaiac positive no gross melena. EXTREMITIES: Normal range of motion, no clubbing or edema. Neurovascularly intact NEUROLOGICAL: Alert and oriented x4.Normal gait and speech. Cranial nerves II through XII grossly intact. Good [id number], good [id number], strength equal bilaterally, no dysarthria or aphasia, sensation in tact to soft touch bilaterally, no visual changes, no facial droop SKIN: Warm, dry, no laceration, no petechiae, no rashes or lesions. Course Orders Ordered: ED Orders 02/13/20 07:43 EKG-12 Lead Stat Measure peak expiratory flow ONCE RT Consult Eval and Treat Now 02/13/20 07:45 CT head/brain wo con Stat Blood Culture Stat Lactate (Lactic Acid) Stat Troponin & CK Cardiac Panel Stat 02/13/20 08:33 CT angio chest abdomen pelvis Stat 02/13/20 09:02 Packed Cells Stat Type and Screen Stat Albuterol (Ventolin) 2.5 mg INH [id number] PRN PRN Reason: Shortness Of Breath Hydromorphone HCl (Dilaudid) 0.5 mg IV Q6H PRN PRN Reason: Pain, Moderate (4-6) Naloxone HCl (Narcan) 0.2 mg IV Q2MIN PRN PRN Reason: Opiate Reversal Ondansetron HCl (Zofran) 4 mg IV Q8HR PRN PRN Reason: Nausea And Vomiting Pantoprazole Sodium (Protonix) 40 mg IV BID BRITTNEE Polyethylene Glycol/Electrolytes (Golytely Solution) 2,000 ml PO NOW ONE Stop: 02/13/20 17:24 Polyethylene Glycol/Electrolytes (Golytely Solution) 2,000 ml PO NOW ONE Stop: 02/14/20 06:25 Discontinued Medications Baclofen (Lioresal) 20 mg PO NOW ONE Stop: 02/13/20 11:42 Last Admin: 02/13/20 12:44 Dose: 20 mg Documented by: LINDA Gabapentin (Neurontin) 600 mg PO NOW ONE Stop: 02/13/20 11:42 Last Admin: 02/13/20 12:45 Dose: 600 mg Documented by: LINDA Pantoprazole Sodium (Protonix) 40 mg IV NOW ONE Stop: 02/13/20 10:00 Last Admin: 02/13/20 10:54 Dose: 40 mg Documented by: LINDA Vital Signs Vital signs: Vital Signs - 8 hr 02/13/20 08:59 02/13/20 09:35 02/13/20 10:04 Temperature Pulse Rate 70 89 Pulse Rate [Orthostatic Lying] 77 Pulse Rate [Orthostatic Sitting] Respiratory Rate 16 16 Blood Pressure Blood Pressure [Left Arm] 116/58 L 136/68 Blood Pressure [Orthostatic Lying] 100/46 L Blood Pressure [Orthostatic Sitting] Pulse Oximetry 98 93 02/13/20 10:05 02/13/20 10:22 02/13/20 10:48 Temperature Pulse Rate 80 70 Pulse Rate [Orthostatic Lying] Pulse Rate [Orthostatic Sitting] 89 Respiratory Rate 18 19 Blood Pressure Blood Pressure [Left Arm] 140/65 119/57 L Blood Pressure [Orthostatic Lying] Blood Pressure [Orthostatic Sitting] 111/55 L Pulse Oximetry 96 99 02/13/20 11:08 02/13/20 11:24 02/13/20 11:26 Temperature 98.2 F 98.6 F 98.6 F Pulse Rate 70 80 80 Pulse Rate [Orthostatic Lying] Pulse Rate [Orthostatic Sitting] Respiratory Rate 19 13 13 Blood Pressure 119/57 L 175/74 H Blood Pressure [Left Arm] 175/74 H Blood Pressure [Orthostatic Lying] Blood Pressure [Orthostatic Sitting] Pulse Oximetry 99 MDM - SOB/Dyspnea Lab Data Attestation: I reviewed the patient's lab results. Result diagrams: 02/13/20 14:36 02/13/20 07:30 Labs: Lab Results 02/13/20 02/13/20 02/13/20 Range/Units 07:30 07:30 07:45 WBC 9.3 (4.5-11.0) X10^3/uL RBC 2.80 L (4.5-5.9) X10^6/uL Hgb 7.7 L (13.5-17.5) g/dL Hct 23.8 L (41-53) % MCV 84.9 (80-100) fL MCH 27.6 (26-34) PG MCHC 32.5 (30-36) % RDW 18.3 H (11.6-14.8) % Plt Count 223 (150-400) X10^3/uL Neut % (Auto) 64.6 (50-75) % Lymph % (Auto) 25.5 (25-40) % Wilcox % (Auto) 8.2 (3-14) % Eos % (Auto) 1.0 L (2-4) % Baso % (Auto) 0.7 (0-2) % Neut # (Auto) 6000 (8852-2446) /uL Lymph # (Auto) 2400 (0915-4188) /uL Wilcox # (Auto) 800 (0-900) /uL Eos # (Auto) 100 (0-450) /uL Baso # (Auto) 100 (0-100) /uL Sodium 137 (137-145) mmol/L Potassium 4.0 (3.4-5.1) mmol/L Chloride 109 H (98-107) mmol/L Carbon Dioxide 25 (22-32) mmol/L BUN 51 H (9-20) mg/dL Creatinine 0.79 (0.66-1.25) mg/dL Estimated GFR > 60.0 (>60) mL/min BUN/Creatinine Ratio 64.6 H (6-22) Glucose 155 H (80-110) mg/dL Lactate 1.2 (0.7-2.1) mmol/L Calcium 8.4 (8.4-10.2) mg/dL Total Bilirubin 0.2 (0.2-1.3) mg/dL AST 19 (17-59) IU/L ALT 15 (<50) IU/L Alkaline Phosphatase 49 (38-126) U/L Total Creatine Kinase (55-170) U/L CK-MB (CK-2) CK-MB (CK-2) Rel Index Troponin I (0.01-0.034) ng/mL Total Protein 5.5 L (6.3-8.2) g/dL Albumin 3.1 L (3.5-5.0) g/dL Globulin 2.4 (1.7-4.1) g/dL Albumin/Globulin Ratio 1.3 (1.0-2.8) Blood Type Antibody Screen Crossmatch 02/13/20 02/13/20 Range/Units 07:45 09:02 WBC (4.5-11.0) X10^3/uL RBC (4.5-5.9) X10^6/uL Hgb (13.5-17.5) g/dL Hct (41-53) % MCV (80-100) fL MCH (26-34) PG MCHC (30-36) % RDW (11.6-14.8) % Plt Count (150-400) X10^3/uL Neut % (Auto) (50-75) % Lymph % (Auto) (25-40) % Wilcox % (Auto) (3-14) % Eos % (Auto) (2-4) % Baso % (Auto) (0-2) % Neut # (Auto) (2249-2576) /uL Lymph # (Auto) (3088-9955) /uL Wilcox # (Auto) (0-900) /uL Eos # (Auto) (0-450) /uL Baso # (Auto) (0-100) /uL Sodium (137-145) mmol/L Potassium (3.4-5.1) mmol/L Chloride (98-107) mmol/L Carbon Dioxide (22-32) mmol/L BUN (9-20) mg/dL Creatinine (0.66-1.25) mg/dL Estimated GFR (>60) mL/min BUN/Creatinine Ratio (6-22) Glucose (80-110) mg/dL Lactate (0.7-2.1) mmol/L Calcium (8.4-10.2) mg/dL Total Bilirubin (0.2-1.3) mg/dL AST (17-59) IU/L ALT (<50) IU/L Alkaline Phosphatase (38-126) U/L Total Creatine Kinase 26 L (55-170) U/L CK-MB (CK-2) TNP CK-MB (CK-2) Rel Index TNP Troponin I < 0.012 (0.01-0.034) ng/mL Total Protein (6.3-8.2) g/dL Albumin (3.5-5.0) g/dL Globulin (1.7-4.1) g/dL Albumin/Globulin Ratio (1.0-2.8) Blood Type A Positive Antibody Screen Negative Crossmatch See Detail Point of Care Testing Glucose POC 148 Urine Dip Bedside Urine Glucose Negative Bedside Urine Bilirubin - Negative Bedside Urine Ketone - Negative Urine Specific [place] 1.010 Bedside Urine Occult Blood - Negative Bedside Urine pH 5.5 Bedside Urine Protein - Negative Bedside Urine Urobilinogen - Negative Bedside Urine Nitrite - Negative Bedside Urine Leukocytes - Negative Esterase ECG Data Attestation: I personally reviewed and interpreted this ECG as follows: Prior ECG tracings: available for review Interpretation: Sinus rhythm rate 69 no changes from prior MDM Narrative Medical decision making narrative: Patient initially hypotensive but improved with IV fluids. He is found to be anemic at baseline hemoglobin 9-10 however today it is 7.7 with hematocrit 23.8. He still feels extremely dizzy and lightheaded when he sits up. His symptoms are likely from anemia and chronic bleeding. Dr. de la rosa has been updated on patient's symptoms test results and happily accept patient for observation. Surgery Dr. Chan also updated and is in the ED to see and evaluate patient. Discharge Plan Departure Patient Disposition: Admitted as Observation Clinical Impression: GI bleed Qualifiers: GI bleed type/associated pathology: unspecified gastrointestinal hemorrhage type Qualified Code(s): K92.2 - Gastrointestinal hemorrhage, unspecified Anemia Qualifiers: Anemia type: unspecified type Qualified Code(s): D64.9 - Anemia, unspecified Discharge Date/Time: 02/13/20 13:59 Referrals: Elton Dang MD [Primary Care Provider] - Admit Date/Time: 02/13/20 11:32 Admit Provider: Michael De La Rosa
[2020-02-13 08:05] LABS: Creatine Kinase 26 U/L (55-170)
[2020-02-13 08:06] LABS: Lactate (Lactic Acid) 1.2 mmol/L (0.7-2.1)
[2020-02-13 08:07] LABS: Alanine Aminotransferase 15 IU/L (<50); Albumin 3.1 g/dL (3.5-5.0); Albumin Globulin Ratio 1.3 (1.0-2.8); Alkaline Phosphatase 49 U/L (38-126); Aspartate Aminotransferase 19 IU/L (17-59); BUN Creatinine Ratio 64.6 (6-22); Bilirubin Total 0.2 mg/dL (0.2-1.3); Blood Urea Nitrogen 51 mg/dL (9-20); Calcium 8.4 mg/dL (8.4-10.2); Carbon Dioxide 25 mmol/L (22-32); Chloride 109 mmol/L (98-107); Estimated Glomerular Filt Rate > 60.0 mL/min (>60); Globulin 2.4 g/dL (1.7-4.1); Glucose 155 mg/dL (80-110); HEMOLYSIS < 15 (0-50); Sodium 137 mmol/L (137-145); Total Protein 5.5 g/dL (6.3-8.2)
[2020-02-13 08:18] LABS: Troponin I < 0.012 ng/mL (0.01-0.034)
--- NOTE | 2020-02-13 08:33 | DI.CT.S_ITS ---
PROCEDURE: CT ANGIO CHEST ABDOMEN PELVIS INDICATIONS: hypotension aneurysm? TECHNIQUE: Precontrast 5 mm thick sections acquired from the lung apices to the iliac crests. After the administration of intravenous contrast, 2.5 mm thick sections again acquired from the lung apices to the iliac crests. Maximum intensity projection (MIP) oblique sagittal and coronal reformats were then acquired. For radiation dose reduction, the following was used: automated exposure control. COMPARISON: [facility], , C-SPINE WITHOUT CONTRAST, 11/16/2017, 7:08. FINDINGS: Image quality: Excellent. AORTA: Scattered vascular calcifications seen in the aorta. No aneurysm identified. No evidence of aortic dissection. No periaortic hemorrhage is seen. CHEST: Lungs and pleura: No acute consolidation. Scattered scarring/atelectasis. Airway thickening in keeping with nonspecific bronchitis and/or reactive airways disease. No pleural effusions or pneumothorax. Central and peripheral airways are patent and normal in caliber. Mediastinum: Heart size is normal. Coronary artery calcifications are present. No pericardial effusion. No mediastinal or hilar adenopathy by size criteria. Central pulmonary arteries are normal in size. Esophagus is normal in caliber. No hiatal hernias. Bones and chest wall: Postsurgical changes again redemonstrated at the anterior cervical spine with multilevel corpectomies and strut graft, in unchanged alignment since 11/16/17. There is bony canal stenosis in the upper thoracic spine as before. No axillary adenopathy by size criteria. Thyroid gland negative. No suspicious bony lesions. No vertebral body compression fractures. ABDOMEN: Vasculature: Celiac trunk is markedly stenotic at its origin. There is distal reconstitution. The superior mesenteric artery is patent. There is possible high-grade stenosis at the origin of the inferior mesenteric artery however this is reconstituted distally. Renal arteries are patent. Solid organs: Liver is normal in size and enhancement. Gallbladder negative. Biliary system is non dilated. Pancreas enhances normally. Spleen is normal in size and enhancement. No adrenal nodules. Both kidneys are normal in size and enhancement, without hydronephrosis. Right renal cyst noted. Subcentimeter poorly defined renal hypodensities, statistically small cysts, however technically too small to characterize accurately. Peritoneum and bowel: No free fluid or air. Lungs are mural thickening involving nearly the transverse colon. Normal appendix Nodes and vessels: No retroperitoneal or mesenteric adenopathy by size criteria. Inferior vena cava is normal in morphology. Miscellaneous: No ventral hernias. PELVIS: Genitourinary: Bladder unremarkable. Prostate enlarged. Miscellaneous: No inguinal hernias or adenopathy. No ventral hernias. Bones: No suspicious bony lesions. No vertebral body compression fractures. Innumerable paravertebral osteophytes and anterior paraspinal ossification. Lower lumbar posterior spinal fixation. IMPRESSION: No evidence of aortic aneurysm or dissection. 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 Coronary artery disease Long segment transverse colon mural thickening raising the possibility of infectious/inflammatory colitis, versus statistically less likely ischemic etiology. Please correlate clinically and with laboratory data Additional chronic and incidental findings as above. Dictated by: Taras Pinto M.D. on 02/13/2020 at 8:51 Approved by: Taras Pinto M.D. on 02/13/2020 at 9:12
--- NOTE | 2020-02-13 09:06 | PC.NURSE ---
Has had intermittent falls x 2-3 days. NIH 0. Noted small bruises over arms/legs & right chest wall in various stages of healing. States he has been nauseas w/ vomiting but does not feel nauseas now. + SOB on and off but states feels well now. + Light headed but no room spinning. Denies head trauma. Moving all extremities equally well to baseline. Equal strength through out. has had dizzyiness upon standing. Currently a/o x 4
[2020-02-13] MEDS: PANTOPRAZOLE 40 MG VIAL IV ×2 (10:54→21:33)
[2020-02-13] MEDS: BACLOFEN 10 MG TABLET 20 MG PO ×2 (12:44→21:35)
[2020-02-13] MEDS: GABAPENTIN 600 MG TABLET PO ×2 (12:45→21:36)
--- NOTE | 2020-02-13 14:34 | P.HP_ITS ---
History of Present Illness History of Present Illness Date Patient Seen: 02/13/20 Time Patient Seen: 14:34 Chief complaint: 3x Falls, SOB Narrative: Sherwin Sparks is a 69-year-old male with past medical history of anxiety, BPH, chronic back pain, hypertension, hyperlipidemia, type 2 diabetes with neuropathy, prior CVA (Wallenberg syndrome), and iron deficiency anemia who presented with worsening fatigue and weakness, as well as dyspnea on exertion over the past 2 days. Patient states he has noticed that he has been more short of breath on exertion over approximately the past week, but only mildly until a couple of days ago when he threw up once. This emesis was nonbloody and nonbilious. Since that episode he has not eaten, and has fallen twice since l ast evening and was slightly more confused according to his . He feels extremely lightheaded and dizzy whenever he stands up. He also complains of dyspnea on exertion after walking only a couple of feet. He denies any cough, fever, chest pain a palpitations, abdominal pain. He denies any weakness, or change in his chronic lower extremity neuropathy symptoms. In the emergency room, patient ranged from borderline hypotension to hypertensive. Other vital signs were unremarkable. Initial laboratory evaluation showed a hemoglobin of 7.7 down from 13 in October of this year, and 10 from November of this year. He received 1 unit PRBC for symptomatic transfusion. His hemoglobin subsequently climbed to 8.2. Initial chemistry exam was notable for an elevated BUN to 51, glucose of 155, and total protein of 5.5 but was otherwise unremarkable. Troponin was negative. EKG did not show any evidence of active ischemia. He was guaiac positive in the emergency room. CTA chest abdomen pelvis showed No evidence of aortic aneurysm or dissection. 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 Coronary artery disease Long segment transverse colon mural thickening raising the possibility of infectious/inflammatory colitis, versus statistically less likely ischemic etiology. CT head was unremarkable. Patient was admitted to Medicine for symptomatic anemia. Dr. Chan of surgery was consulted and plans for an EGD/colonoscopy tomorrow. He will remain on clear liquid diet and be NPO at midnight for further evaluation of GI bleeding tomorrow. 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) Recurrent major depressive disorder, in full remission (Chronic) RLS (restless legs syndrome) (Acute) Shortness of breath (Acute) Type 2 diabetes mellitus without complication (Chronic) Undescended testicle of both sides (Acute) Surgical History History of spinal fusion Family & Social History Social History: household members spouse Prior Living Arrangements House lives independently Yes caregiver/support person No Safety & Behavioral: Feels Safe in Current Yes Environment Been Physically Hurt or No Threatened By a Person Suicidal Ideation Description None Suicide Plan Description No Plan Tobacco & Substance use: Tobacco type cigarettes Smoking Status Former smoker alcohol intake current alcohol intake frequency holiday/special occasion Substance Use Type does not use Meds Home Medications and Allergies Home Medications Medication Instructions Recorded Confirmed Type aspirin 81 mg PO DAILY #0 01/24/12 02/13/20 History ferrous sulfate [iron] 650 mg PO DAILY #0 11/22/16 02/13/20 History lisinopril 20 mg PO QDAY #90 tab 09/07/18 02/13/20 Rx baclofen 20 mg tablet See Rx Instructions .ROUTE 02/04/19 02/13/20 Rx .COMPLEX #270 tab clonazepam 1 mg tablet 0.5 mg PO HS #30 tab 04/24/19 02/13/20 Rx Qvar RediHaler 1 inh INHALATION BID PRN 09/30/19 02/13/20 History amlodipine 10 mg PO BEDTIME 09/30/19 02/13/20 History clopidogrel 75 mg PO DAILY 09/30/19 02/13/20 History duloxetine 30 mg PO BEDTIME 09/30/19 02/13/20 History metformin [Glucophage] 1,000 mg PO BIDCC 09/30/19 02/13/20 History tamsulosin [Flomax] 0.12 mg PO QDAY 09/30/19 02/13/20 History gabapentin 600 mg PO BID 10/31/19 02/13/20 History albuterol sulfate 90 mcg/actuation 1 puff INHALATION PRN PRN #18 12/03/19 02/13/20 Rx aerosol inhaler inhalation atorvastatin [Lipitor] 20 mg PO BEDTIME 02/13/20 02/13/20 History Allergies Allergy/AdvReac Type Severity Reaction Status Date / Time No Known Drug Allergies Allergy Verified 02/13/20 07:49 Review of Systems Review of Systems Narrative: All other systems reviewed with the patient and are negative unless otherwise stated. Exam Vital Signs (past 8 hours): - 02/13/20 07:40 02/13/20 07:43 02/13/20 08:01 Temperature 97.2 F L Pulse Rate 68 70 68 Pulse Rate [Orthostatic Lying] Pulse Rate [Orthostatic Sitting] Respiratory Rate 20 25 H 22 Blood Pressure 95/56 L Blood Pressure [Left Arm] 102/57 L 111/58 L Blood Pressure [Orthostatic Lying] Blood Pressure [Orthostatic Sitting] Pulse Oximetry 100 99 99 02/13/20 08:59 02/13/20 09:35 02/13/20 10:04 Temperature Pulse Rate 70 89 Pulse Rate [Orthostatic Lying] 77 Pulse Rate [Orthostatic Sitting] Respiratory Rate 16 16 Blood Pressure Blood Pressure [Left Arm] 116/58 L 136/68 Blood Pressure [Orthostatic Lying] 100/46 L Blood Pressure [Orthostatic Sitting] Pulse Oximetry 98 93 02/13/20 10:05 02/13/20 10:22 02/13/20 10:48 Temperature Pulse Rate 80 70 Pulse Rate [Orthostatic Lying] Pulse Rate [Orthostatic Sitting] 89 Respiratory Rate 18 19 Blood Pressure Blood Pressure [Left Arm] 140/65 119/57 L Blood Pressure [Orthostatic Lying] Blood Pressure [Orthostatic Sitting] 111/55 L Pulse Oximetry 96 99 02/13/20 11:08 02/13/20 11:24 02/13/20 11:26 Temperature 98.2 F 98.6 F 98.6 F Pulse Rate 70 80 80 Pulse Rate [Orthostatic Lying] Pulse Rate [Orthostatic Sitting] Respiratory Rate 19 13 13 Blood Pressure 119/57 L 175/74 H Blood Pressure [Left Arm] 175/74 H Blood Pressure [Orthostatic Lying] Blood Pressure [Orthostatic Sitting] Pulse Oximetry 99 02/13/20 11:52 02/13/20 12:29 02/13/20 13:05 Temperature 99.5 F Pulse Rate 73 81 Pulse Rate [Orthostatic Lying] Pulse Rate [Orthostatic Sitting] Respiratory Rate 18 25 H 18 Blood Pressure 145/75 H Blood Pressure [Left Arm] 152/67 H Blood Pressure [Orthostatic Lying] Blood Pressure [Orthostatic Sitting] Pulse Oximetry 99 98 98 02/13/20 13:57 Temperature Pulse Rate 73 Pulse Rate [Orthostatic Lying] Pulse Rate [Orthostatic Sitting] Respiratory Rate 25 H Blood Pressure 152/67 H Blood Pressure [Left Arm] Blood Pressure [Orthostatic Lying] Blood Pressure [Orthostatic Sitting] Pulse Oximetry 98 Oxygen Delivery Method Room Air Oxygen Flow Rate 0 Narrative Exam Narrative: GENERAL APPEARANCE: Well developed, well nourished, mildly ill- appearing male appears slightly fatigued SKIN: Inspection of the skin reveals no rashes, ulcerations or petechiae. HEENT: Normocephalic atraumatic, extraocular muscles are intact, oropharynx is clear and mucous membranes are moist, neck is supple without adenopathy NECK: Supple and symmetric. There was no thyroid enlargement, and no tenderness, or masses were felt. CHEST: Normal AP diameter and normal contour without any kyphoscoliosis. LUNGS: Auscultation of the lungs revealed no wheezes, rhonchi, or rales. CARDIOVASCULAR: There was a regular rate and rhythm without any murmurs, gallops, rubs. Peripheral pulses were 2+ and symmetric. ABDOMEN: Soft and nontender with slightly hyperactive bowel sounds. No ascites was noted. MUSCULOSKELETAL: There was no tenderness or effusions noted. Muscle strength and tone were normal. EXTREMITIES: No cyanosis, clubbing or edema. NEUROLOGIC: Alert and oriented x 3. Normal affect. Strength is +5/5 in the Upper Extremities and Lower Extremities Bilaterally. Sensation to touch was normal. Objective ECG Impression: Unusual P axis, and low voltage P-waves but appears to be normal sinus rhythm, difficult to interpret. No ST or T-wave changes indicative of ischemia. Imaging CT scan - abdomen: Radiologist's impression: No evidence of aortic aneurysm or dissection. 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 Coronary artery disease Long segment transverse colon mural thickening raising the possibility of infectious/inflammatory colitis, versus statistically less likely ischemic etiology. Please correlate clinically and with laboratory data Additional chronic and incidental findings as above. Labs Result Diagrams: 02/13/20 14:36 02/13/20 07:30 Labs: Laboratory Results - last 24 hr 02/13/20 02/13/20 02/13/20 07:30 07:30 07:45 WBC 9.3 RBC 2.80 L Hgb 7.7 L Hct 23.8 L MCV 84.9 MCH 27.6 MCHC 32.5 RDW 18.3 H Plt Count 223 Neut % (Auto) 64.6 Lymph % (Auto) 25.5 [place] % (Auto) 8.2 Eos % (Auto) 1.0 L Baso % (Auto) 0.7 Neut # (Auto) 6000 Lymph # (Auto) 2400 [place] # (Auto) 800 Eos # (Auto) 100 Baso # (Auto) 100 Sodium 137 Potassium 4.0 Chloride 109 H Carbon Dioxide 25 BUN 51 H Creatinine 0.79 Estimated GFR > 60.0 BUN/Creatinine Ratio 64.6 H Glucose 155 H Lactate 1.2 Calcium 8.4 Total Bilirubin 0.2 AST 19 ALT 15 Alkaline Phosphatase 49 Total Creatine Kinase CK-MB (CK-2) CK-MB (CK-2) Rel Index Troponin I Total Protein 5.5 L Albumin 3.1 L Globulin 2.4 Albumin/Globulin Ratio 1.3 Blood Type Antibody Screen Crossmatch 02/13/20 02/13/20 07:45 09:02 WBC RBC Hgb Hct MCV MCH MCHC RDW Plt Count Neut % (Auto) Lymph % (Auto) [place] % (Auto) Eos % (Auto) Baso % (Auto) Neut # (Auto) Lymph # (Auto) [place] # (Auto) Eos # (Auto) Baso # (Auto) Sodium Potassium Chloride Carbon Dioxide BUN Creatinine Estimated GFR BUN/Creatinine Ratio Glucose Lactate Calcium Total Bilirubin AST ALT Alkaline Phosphatase Total Creatine Kinase 26 L CK-MB (CK-2) TNP CK-MB (CK-2) Rel Index TNP Troponin I < 0.012 Total Protein Albumin Globulin Albumin/Globulin Ratio Blood Type A Positive Antibody Screen Negative Crossmatch See Detail Assessment & Plan Assessment & Plan narrative: Sherwin Sparks is a 69-year-old male with past medical history of anxiety, BPH, chronic back pain, hypertension, hyperlipidemia, type 2 diabetes with neuropathy, prior CVA (Wallenberg syndrome), and iron deficiency anemia who presented with worsening fatigue and weakness, as well as dyspnea on exertion over the past 2 days. He is admitted under observation status for acute blood loss anemia secondary to likely GI bleeding, with planned endoscopy and/or colonoscopy tomorrow 1. Acute on chronic blood loss anemia, present on admission -patient has been on supplemental iron therapy for iron deficiency anemia he reports for the past few years. He has not had a recent colonoscopy or an endoscopy. He did have 1 colonoscopy previously, but did not recall the findings. -Initial Hg 7.7, transfused 1 U PRBC for symptomatic anemia, responded to 8.2. Repeat at 2200. -Surgery, Dr. Chan, has consulted and appreciate recommendations. Plan for EGD / c-scope tomorrow. -given 40 mg protonix IV in the ED, continue 40 mg IV BID -CLD, NPO @ NM for procedure tomorrow. -continue to monitor h/h 2. GI bleeding - see management as noted above 3. Type 2 diabetes -will hold home metformin, continue fingersticks a.c. hs and low-dose sliding scale insulin. 4. Hypertension -will hold lisinopril, continue nightly amlodipine. Code: Full, surrogate decision maker is the patient's spouse DVT: SCD Quality VTE Deep Vein Thrombosis/Pulmonary Embolism Present on Admission: No
--- NOTE | 2020-02-13 14:49 | P.CONS_ITS ---
History of Present Illness Consult details Date Patient Seen: 02/13/20 Time Patient Seen: 12:08 Chief complaint: 3x Falls, SOB Reason for consult: Anemia with guaiac-positive stool Requesting provider: Nettie Hicks Narrative: The patient is a gentleman who has multiple medical problems. He has been taking a multiple vitamin and iron and has noted recently he has been weak fatigued and dizzy at times. He actually was found by EMS and brought to the emergency room hypotensive and with fluid challenge his blood pressure improved as did his mentation. This is never happened before. He has not seen trena blood in his stool. His stool has been dark though because he takes iron. He denies any abdominal pain though he has had a little bit of nausea and vomiting the last couple days. No hematemesis. He is not certain if he had a colonoscopy. He states his thinks he did but he believes that was just for a prostate biopsy. Meds Home Medications and Allergies Home Medications Medication Instructions Recorded Confirmed Type aspirin 81 mg PO DAILY #0 01/24/12 02/13/20 History ferrous sulfate [iron] 650 mg PO DAILY #0 11/22/16 02/13/20 History lisinopril 20 mg PO QDAY #90 tab 09/07/18 02/13/20 Rx baclofen 20 mg tablet See Rx Instructions .ROUTE 02/04/19 02/13/20 Rx .COMPLEX #270 tab clonazepam 1 mg tablet 0.5 mg PO HS #30 tab 04/24/19 02/13/20 Rx bupropion HCl 150 mg tablet,12 hr See Rx Instructions .ROUTE 09/03/19 11/08/19 Rx sustained-release .COMPLEX #60 tab Qvar RediHaler 1 inh INHALATION BID PRN 09/30/19 02/13/20 History amlodipine 10 mg PO BEDTIME 09/30/19 02/13/20 History clopidogrel 75 mg PO DAILY 09/30/19 02/13/20 History duloxetine 30 mg PO BEDTIME 09/30/19 02/13/20 History metformin [Glucophage] 1,000 mg PO BIDCC 09/30/19 02/13/20 History tamsulosin [Flomax] 0.12 mg PO QDAY 09/30/19 02/13/20 History gabapentin 600 mg PO BID 10/31/19 02/13/20 History docusate sodium [DOK] 100 mg PO BID PRN #30 cap 11/01/19 11/08/19 Rx hydrocodone-acetaminophen 1 tab PO Q4HR PRN #25 tab 11/01/19 11/08/19 Rx hydroxyzine pamoate 25 mg PO Q4HR PRN #20 cap 11/01/19 11/08/19 Rx cephalexin 500 mg PO QID #40 cap 11/09/19 Rx hydrocodone-acetaminophen 1 tab PO Q4HR PRN #15 tab 11/09/19 Rx albuterol sulfate 90 mcg/actuation 1 puff INHALATION PRN PRN #18 12/03/19 02/13/20 Rx aerosol inhaler inhalation atorvastatin [Lipitor] 20 mg PO BEDTIME 02/13/20 02/13/20 History Allergies Allergy/AdvReac Type Severity Reaction Status Date / Time No Known Drug Allergies Allergy Verified 02/13/20 07:49 Review of Systems Review of Systems Narrative: Patient has no acute visual changes. No double vision. No earache sore throats. He had a CVA in the past and initially left him unable swallow. He still has trouble swallowing large pills. He also has had more trouble swallowing related to a prior neck operation which was approached anteriorly. He does have chronic breathing issues and possibly asthma. He used to smoke but stopped years ago. No chronic cough or sputum production at this time. He does get short winded with [id number] exertion. Denies heart murmurs or heart attacks in the past. Sometimes he wakes up in the middle of the night with tightness across his chest and a little short of breath but it goes away within seconds. No chronic diarrhea he does have intermittent constipation and in fact the only time he has had abdominal pain is when he does have constipation he says. He is to have trouble with urination in for nocturia but he has been taking tamsulosin for it and that has improved his symptoms. Never had any bone fractures except for toe. Does suffer from anxiety and takes m edication for it. No prior history of seizures. He does have peripheral neuropathy with numbness in his feet his feet. Exam Vital Signs (past 8 hours): - 02/13/20 07:40 02/13/20 07:43 02/13/20 08:01 Temperature 97.2 F L Pulse Rate 68 70 68 Pulse Rate [Orthostatic Lying] Pulse Rate [Orthostatic Sitting] Respiratory Rate 20 25 H 22 Blood Pressure 95/56 L Blood Pressure [Left Arm] 102/57 L 111/58 L Blood Pressure [Orthostatic Lying] Blood Pressure [Orthostatic Sitting] Pulse Oximetry 100 99 99 02/13/20 08:59 02/13/20 09:35 02/13/20 10:04 Temperature Pulse Rate 70 89 Pulse Rate [Orthostatic Lying] 77 Pulse Rate [Orthostatic Sitting] Respiratory Rate 16 16 Blood Pressure Blood Pressure [Left Arm] 116/58 L 136/68 Blood Pressure [Orthostatic Lying] 100/46 L Blood Pressure [Orthostatic Sitting] Pulse Oximetry 98 93 02/13/20 10:05 02/13/20 10:22 02/13/20 10:48 Temperature Pulse Rate 80 70 Pulse Rate [Orthostatic Lying] Pulse Rate [Orthostatic Sitting] 89 Respiratory Rate 18 19 Blood Pressure Blood Pressure [Left Arm] 140/65 119/57 L Blood Pressure [Orthostatic Lying] Blood Pressure [Orthostatic Sitting] 111/55 L Pulse Oximetry 96 99 02/13/20 11:08 02/13/20 11:24 02/13/20 11:26 Temperature 98.2 F 98.6 F 98.6 F Pulse Rate 70 80 80 Pulse Rate [Orthostatic Lying] Pulse Rate [Orthostatic Sitting] Respiratory Rate 19 13 13 Blood Pressure 119/57 L 175/74 H Blood Pressure [Left Arm] 175/74 H Blood Pressure [Orthostatic Lying] Blood Pressure [Orthostatic Sitting] Pulse Oximetry 99 02/13/20 11:52 02/13/20 12:29 02/13/20 13:05 Temperature 99.5 F Pulse Rate 73 81 Pulse Rate [Orthostatic Lying] Pulse Rate [Orthostatic Sitting] Respiratory Rate 18 25 H 18 Blood Pressure 145/75 H Blood Pressure [Left Arm] 152/67 H Blood Pressure [Orthostatic Lying] Blood Pressure [Orthostatic Sitting] Pulse Oximetry 99 98 98 02/13/20 13:57 Temperature Pulse Rate 73 Pulse Rate [Orthostatic Lying] Pulse Rate [Orthostatic Sitting] Respiratory Rate 25 H Blood Pressure 152/67 H Blood Pressure [Left Arm] Blood Pressure [Orthostatic Lying] Blood Pressure [Orthostatic Sitting] Pulse Oximetry 98 Oxygen Delivery Method Room Air Oxygen Flow Rate 0 Narrative Exam Narrative: Cooperative gentleman in no distress at this time. His eyes are nonicteric. Pupils equal round reactive to light. He has pale conjunctivae. Ears without lesion. Oral mucosa is a bit dry no open lesions. No splits in the lips. I do not feel any nodes in his neck or supraclavicular areas. His trachea however is not mobile and it feels little shifted to the left. Lungs are clear to auscultation without rales rhonchi or wheezing. Equal to per cussion. Heart regular rate and rhythm. I do not hear a gallop. Abdomen is protuberant soft nontender. No ventral hernias appreciated. Liver and spleen are not enlarged. Extremities without cyanosis clubbing or edema. He has bruising on both upper extremities. He relates this to the use of his Plavix because of his prior stroke. Patient is alert and oriented x3. Speech rate and content are appropriate. Affect is appropriate. Objective Labs Result Diagrams: 02/13/20 14:36 02/13/20 07:30 Labs: Laboratory Results - last 24 hr 02/13/20 02/13/20 02/13/20 07:30 07:30 07:45 WBC 9.3 RBC 2.80 L Hgb 7.7 L Hct 23.8 L MCV 84.9 MCH 27.6 MCHC 32.5 RDW 18.3 H Plt Count 223 Neut % (Auto) 64.6 Lymph % (Auto) 25.5 [place] % (Auto) 8.2 Eos % (Auto) 1.0 L Baso % (Auto) 0.7 Neut # (Auto) 6000 Lymph # (Auto) 2400 [place] # (Auto) 800 Eos # (Auto) 100 Baso # (Auto) 100 Sodium 137 Potassium 4.0 Chloride 109 H Carbon Dioxide 25 BUN 51 H Creatinine 0.79 Estimated GFR > 60.0 BUN/Creatinine Ratio 64.6 H Glucose 155 H Lactate 1.2 Calcium 8.4 Total Bilirubin 0.2 AST 19 ALT 15 Alkaline Phosphatase 49 Total Creatine Kinase CK-MB (CK-2) CK-MB (CK-2) Rel Index Troponin I Total Protein 5.5 L Albumin 3.1 L Globulin 2.4 Albumin/Globulin Ratio 1.3 Blood Type Antibody Screen Crossmatch 02/13/20 02/13/20 07:45 09:02 WBC RBC Hgb Hct MCV MCH MCHC RDW Plt Count Neut % (Auto) Lymph % (Auto) [place] % (Auto) Eos % (Auto) Baso % (Auto) Neut # (Auto) Lymph # (Auto) [place] # (Auto) Eos # (Auto) Baso # (Auto) Sodium Potassium Chloride Carbon Dioxide BUN Creatinine Estimated GFR BUN/Creatinine Ratio Glucose Lactate Calcium Total Bilirubin AST ALT Alkaline Phosphatase Total Creatine Kinase 26 L CK-MB (CK-2) TNP CK-MB (CK-2) Rel Index TNP Troponin I < 0.012 Total Protein Albumin Globulin Albumin/Globulin Ratio Blood Type A Positive Antibody Screen Negative Crossmatch See Detail Assessment & Plan Assessment and plan (1) Chronic blood loss anemia: Problem details: Patient is receiving transfusions. Would like to get his hematocrit up around 30. Management of his history of CVA, anxiety/depression, diabetes mellitus type 2, as per his primary care provider's/admitting physician. Status: Acute (2) GI bleed: Problem details: Most likely source of his anemia. Because of a lack of specific symptoms probably would benefit from both an upper endoscopy and a colonoscopy. I have d iscussed that with the patient including risks of bleeding, infection, perforation which were necessitated major operation, failure to find removal lesions in the potential tattoo. He was willing to proceed. He is not looking forward to the bowel prep. Given his body habitus IA wonder if he has sleep apnea. Qualifiers: GI bleed type/associated pathology: unspecified gastrointestinal hemorrhage type Qualified Code(s): K92.2 - Gastrointestinal hemorrhage, unspecified Status: Acute
[2020-02-13 15:01] LABS: Add Manual Diff / Slide Review NO; Basophils Absolute Auto 100 /uL (0-100); Basophils Percent Auto 0.6 % (0-2); Eosinophils Absolute Auto 100 /uL (0-450); Eosinophils Percent Auto 0.9 % (2-4); Hematocrit 24.7 % (41-53); Hemoglobin 8.2 g/dL (13.5-17.5); Lymphocytes Absolute Auto 2300 /uL (1100-4500); Lymphocytes Percent Auto 23.9 % (25-40); Mean Corpuscular HGB Conc 33.1 % (30-36); Mean Corpuscular Hemoglobin 27.9 PG (26-34); Mean Corpuscular Volume 84.3 fL (80-100); Monocytes Absolute Auto 800 /uL (0-900); Monocytes Percent Auto 8.5 % (3-14); Neutrophils Absolute Auto 6400 /uL (1500-7000); Neutrophils Percent Auto 66.1 % (50-75); Platelet Count 204 X10^3/uL (150-400); Red Blood Cell Count 2.93 X10^6/uL (4.5-5.9); Red Cell Distribution Width 17.3 % (11.6-14.8); White Blood Cell Count 9.6 X10^3/uL (4.5-11.0)
--- NOTE | 2020-02-13 15:02 | PC.NURSE ---
Admit: Pt resting quietly in bed, still awaiting md to come and see him. Unit of bld started in ED completed and pt has had follow up bld work taken and it is still pending at this time. No sxs of bld transfusion reaction. Spouse at bedside. Pt has call light and instructed in use, has has 3 recent falls and he has been dizzy. He is to call for assist if he wants to get up. Bed alarm on.
--- NOTE | 2020-02-13 16:07 | PC.NURSE ---
Addendum entered by Kenisha Quezada R.N. 02/13/20 21:52: Continues to drink bowel prep this evening shift without complaints. One dark stool per bedside commode reported by [employer]. Pt denies dizziness when up. Clear liquids. No concerns or complaints verbalized. BL calf scd's in place. Addendum entered by Kenisha Quezada R.N. 02/13/20 18:26: Bowel prep begun this evening with explanation provided to pt and pt's spouse who is present in pt's room. Original Note: Pt rouses easily to voice. Able to move all extremities independently in bed and uses urinal. Has limited neck movement d/t previous surgery. Reports baseline neuropathy to feet BL. 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 Aware of bowel prep to begin this evening shift. Taking clear liquids without nausea. Denies abdominal pain or discomfort. Bed alarm set and encouraged to call for needs. Tele in place.
[2020-02-13] MEDS: PEG3350/SOD SULF,BICARB,CL/KCL 4,000 ML SOLUTION 2000 ML PO (17:49)
[2020-02-13] MEDS: AMLODIPINE 5 MG TABLET PO (21:35)
[2020-02-13] MEDS: ATORVASTATIN 20 MG TABLET PO (21:35)
[2020-02-13] MEDS: DULOXETINE 30 MG CAPSULE PO (21:36)
[2020-02-13] MEDS: clonazePAM 0.5 MG TABLET PO (21:36)
[2020-02-13] MEDS: SODIUM CHLORIDE 0.9% FLUSH 10 ML IV (21:37)
[2020-02-13 22:14] LABS: Hematocrit 24.4 % (41-53)
[2020-02-14] VITALS (16 sets, daily range): BP systolic 102–150; BP diastolic 41–80; PULSE 60–92; RESP 8–20; TEMP 35.9–37.2; O2SAT 93–100
--- NOTE | 2020-02-14 | PATH_ITS ---
[facility] Accession Number: [id number] . 01 Material submitted: . PART A: duodenum - DUODENUM PART B: gastrointestinal site - STOMACH PART C: esophagus - DISTAL ESOPHAGUS PART D: cecum - CECAL POLYP PART E: colon - ASCENDING COLON POLYP AT 130 CM PART F: rectum - RECTAL POLYP . 01 Clinical history: . X3 FALLS, SOB . 02 Diagnosis: A. Duodenum, Biopsy: Duodenal mucosa with no diagnostic abnormality. Negative for active inflammation, features of sprue, dysplasia, or malignancy. . B. Stomach, Biopsy: Antral mucosa with mild chronic gastritis. Negative for Helicobacter by immunohistochemistry. Negative for intestinal metaplasia. Negative for dysplasia and malignancy. . C. Distal Esophagus, Biopsy: Squamous epithelium with no diagnostic abnormality. Intraepithelial eosinophils are not increased. Negative for dysplasia and malignancy. . D. Cecum, Polyp, Biopsy: Tubular adenoma. . E. Ascending Colon, Polyp at 130 cm, Biopsy: Tubular adenoma. . F. Rectum, Polyp, Biopsy: Hyperplastic polyp with features of mucosal prolapse. [facility] 02/18/2020 1438 Local . 02 Electronically signed: . Bev Lemus MD, Pathologist NPI- [id number] . 01 Gross description: . Part A: DUODENUM: Received in formalin is 1 fragment(s) of lopez, soft tissue measuring 0.2 x 0.2 x 0.2 cm submitted entirely in 1 cassette(s) Part B: STOMACH: Received in formalin is 1 fragment(s) of lopez, soft tissue measuring 0.2 x 0.2 x 0.2 cm submitted entirely in 1 cassette(s) Part C: DISTAL ESOPHAGUS: Received in formalin is 1 fragment(s) of lopez, soft tissue measuring 0.1 x 0.1 x 0.1 cm submitted entirely in 1 cassette(s) Part D: CECAL POLYP: Received in formalin is 1 fragment(s) of lopez, soft tissue measuring 0.4 x 0.3 x 0.3 cm submitted entirely in 1 cassette(s) Part E: ASCENDING COLON POLYP AT 130 CM: Received in formalin is 1 fragment(s) of lopez, soft tissue measuring 0.5 x 0.4 x 0.4 cm submitted entirely in 1 cassette(s) Part F: RECTAL POLYP: Received in formalin is 1 fragment(s) of lopez, soft tissue measuring 0.4 x 0.3 x 0.3 cm submitted entirely in 1 cassette(s) /[facility] 02/14/2020 2301 Local . 02 Microscopic: . B. An immunohistochemical stain was performed to evaluate for Helicobacter organisms and is negative. The control stain showed appropriate reactivity. . * This test was developed and its performance characteristics determined by [facility]. It has not been cleared or approved by the U.S. Food and Drug Administration. The FDA has determined that such clearance or approval is not necessary. This test is used for clinical purposes. It should not be regarded as investigational or for research. . 02 Pathologist provided ICD-10: D12.0, D12.2 . 02 CPT . 121725, 258337, 214128, 965086, 394444, 587832, D45220 Performed at: 01 [facility] [address] [id number] MD Leonides Rosenberg MD Phone: [phone] Performed at: 02 [facility] [address] [place], [place] [id number] MD Bev Lemus MD Phone: [phone]
--- NOTE | 2020-02-14 00:24 | PC.NURSE ---
Addendum entered by Joselin Hutchinson R.N. 02/14/20 06:22: Noted weight to be down 2.6kg so bed rezeroed and reweighed and still down by 2.3kg. Has been having liquid stools related to bowel prep and has been NPO as possible cause. Addendum entered by Joselin Hutchinson R.N. 02/14/20 06:19: Up to bathroom this morning with walker and 1 assist. Slightly unsteady initially but denies dizziness or lightheadedness. Has been NPO since 0000 but will now be getting rest of bowel prep. Original Note: Patient is alert and oriented. Breath sounds CTA with RA sat of 93%. HRR; telemetry reading has been SR (0000 reading not yet recorded). Denies nausea. BT present and abdomen is soft. Had loose stools on previous shift due to bowel prep; reported to be black in color. Is able to move self in bed. Out of bed with SBA + walker. Denies pain. Wearing bilateral calf SCD's. Fall risk score is high and bed alarm is activated.
[2020-02-14 06:05] LABS: Add Manual Diff / Slide Review NO; Basophils Absolute Auto 100 /uL (0-100); Eosinophils Absolute Auto 200 /uL (0-450); Eosinophils Percent Auto 2.3 % (2-4); Hemoglobin 7.6 g/dL (13.5-17.5); Lymphocytes Absolute Auto 2200 /uL (1100-4500); Lymphocytes Percent Auto 29.1 % (25-40); Mean Corpuscular Hemoglobin 27.9 PG (26-34); Mean Corpuscular Volume 84.5 fL (80-100); Monocytes Absolute Auto 700 /uL (0-900); Monocytes Percent Auto 9.4 % (3-14); Neutrophils Absolute Auto 4300 /uL (1500-7000); Neutrophils Percent Auto 58.2 % (50-75); Platelet Count 186 X10^3/uL (150-400); Red Blood Cell Count 2.73 X10^6/uL (4.5-5.9); Red Cell Distribution Width 17.9 % (11.6-14.8); White Blood Cell Count 7.4 X10^3/uL (4.5-11.0)
[2020-02-14 06:12] LABS: Alanine Aminotransferase 19 IU/L (<50); Albumin 3.1 g/dL (3.5-5.0); Albumin Globulin Ratio 1.2 (1.0-2.8); Alkaline Phosphatase 53 U/L (38-126); Aspartate Aminotransferase 25 IU/L (17-59); BUN Creatinine Ratio 35.7 (6-22); Bilirubin Total 0.5 mg/dL (0.2-1.3); Bilirubin Unconjugated 0.6 mg/dL (0.0-1.1); Blood Urea Nitrogen 30 mg/dL (9-20); Calcium 8.3 mg/dL (8.4-10.2); Carbon Dioxide 26 mmol/L (22-32); Chloride 107 mmol/L (98-107); Estimated Glomerular Filt Rate > 60.0 mL/min (>60); Globulin 2.5 g/dL (1.7-4.1); Glucose 115 mg/dL (80-110); HEMOLYSIS < 15 (0-50); Potassium 4.1 mmol/L (3.4-5.1); Sodium 137 mmol/L (137-145); Total Protein 5.6 g/dL (6.3-8.2)
[2020-02-14 06:20] LABS: Hematocrit 23.1 % (41-53)
[2020-02-14] MEDS: PEG3350/SOD SULF,BICARB,CL/KCL 4,000 ML SOLUTION 2000 ML PO (06:32)
[2020-02-14] MEDS: TAMSULOSIN 0.4 MG CAPSULE PO (08:47)
[2020-02-14] MEDS: SODIUM CHLORIDE 0.9% FLUSH 10 ML IV ×2 (08:47→21:35)
[2020-02-14] MEDS: GABAPENTIN 600 MG TABLET PO ×2 (08:47→21:34)
[2020-02-14] MEDS: PANTOPRAZOLE 40 MG VIAL IV ×2 (08:47→21:34)
[2020-02-14] MEDS: BACLOFEN 10 MG TABLET 20 MG PO ×2 (08:48→21:34)
--- NOTE | 2020-02-14 11:24 | PC.NURSE ---
Addendum entered by iMla Mercado R.N. 02/14/20 14:58: Report rec'd from Sylvia, in ENDO at 1400, pt arrived back to unit at 1420 via stretcher. settled back to bed. Drowsy but arousable and able to answer questions appropriately. Addendum entered by Mila Mercado R.N. 02/14/20 12:25: COVID negative. Now in standard isolation. Pt to EGD/Colonoscopy at 1223 via wheelchair. Original Note: Day Shift- Pt NPO except for pt finishing [employer] bowel prep. Pt drank all 4000mls. PIV X2 S/L. Pt's BM's this AM were dark green liquid. Now around 1105 are yellow. Pt having liquid BM's frequently therefore Calf SCD's left off for now, was on this AM. Rapid COVID swab sent to lab at 1110 prior to pt's procedure. Now in Isolation for rule out COVID.
--- NOTE | 2020-02-14 11:24 | PM.PREOP ---
Pre-operative Note COVID-19 COVID-19 status: Result pending Interval Note History & Physical reviewed/Exam performed by Physician: Yes Changes to H&P: No H&P completed within 30 days and has changed as indicated here:: Risks and benefits of EGD and colonoscopy and possible biopsies or polypectomy were discussed with the patient including risk of bleeding, perforation, need for additional procedures, risks of anesthesia. The patient desires to proceed with the EGD and colonoscopy procedures. Due to his increased medical risk, history of significant anxiety symptoms, and reported intolerance of his past colonoscopy procedure under conscious sedation, I have consulted with the anesthesiologist to provide general anesthesia for this patient.
[2020-02-14 12:14] LABS: COVID19 -Nasal RAPID Negative (Negative)
--- NOTE | 2020-02-14 12:52 | CM.DANOTE ---
Discharge Planning/Care Management DCP: assessment: case received, EMR reviewed and met with pt and his Silvia during Team Bedside Rounds. Introduced self and role Pt is a 69 year old male who admitted last evening to care of hospitalist team. Consulting: [facility]: Dr. Chan. Dr. Oshea is taking pt for an EGD and colonoscopy today. PCP: Dr. Elton Dang at the [facility]. Payer: [employer]. Admission status: in review by SMITH RN Pt and Silvia wondered if pt would be able to go home later today. Dr. Hayes cautioned that the procedure would need to be completed, labs checked on and that he would update them later today. P: likely home when stable for same but follow. CM Discharge Assessment Start: 02/14/20 12:46 Freq: Status: Active Protocol: Document 02/14/20 12:46 ITV (Rec: 02/14/20 12:50 ITV [id number]) Discharge Planning Assessment History Provided By Patient,Family Member Has Patient been admitted in last 30 No days? Comment last admissions to were Oct and November/2019 and related to spinal surgery under care of Orthopedics Prior Living Arrangements House Household Members spouse DME Already Rented / Owned FWW / Walker,Cane Comment uses mostly a cane. has a 4ww and uses this as need be. Review Status In Process
--- NOTE | 2020-02-14 13:46 | P.OP.ENDO_ITS ---
Operative Date/Time/Diagnoses Date of procedure: 02/14/20 Time of procedure: 13:48 Pre-op diagnosis: GI bleed Post-op diagnosis: other (gastritis, duodenitis, colon polyps) Procedure & Clinicians Study performed: EGD with biopsies, colonoscopy with polypectomy with hot snare Same procedure as scheduled: Yes Indications: GI bleed Surgeon: Nena Oshea Procedure Notes SCOAP/Timeout: Performed Procedure in detail: The patient was brought to the room and placed in left lateral decubitus position with all bony prominences padded. A bite block was positioned in the patient's mouth to protect the lips, teeth, and tongue for the procedure. A time-out was performed and then the patient was given procedural sedation by the anesthesiologist. Vitals were monitored throughout the procedure and remained stable. Once adequately sedated, the procedure was begun. The lubricated gastroscope was passed through the bite block and across the tongue and into the esophagus without incident. The esophagus was quite tortuous, consistent with the patient's history of C spine fusion with anterior approach. In spite of that, a tubular view of the esophagus was maintained as the scope was advanced through the esophagus and into the stomach. The scope was advanced through the stomach and to the pylorus. The scope was gently popped through the pylorus and into the duodenal bulb. The scope was flexed and advanced into the second and third portions of the duodenum. There was mucosal inflammatory change seen in the duodenum and duodenal bulb consistent with duodenitis from NSAIDS or stomach acid. The scope was withdrawn into the stomach. There was mild endoscopic gastritis. The duodenum and stomach were biopsied. The scope was retroflexed and the gastric cardia was examined. The hiatus appeared normal. The scope was then straightened, and withdrawn into the esophagus. The Z-line appeared normal at 35cm. The distal esophagus appeared normal. This was biopsied. The scope was then withdrawn through the esophagus with a tubular view. The scope was then withdrawn from the patient and attention was turned to the colonoscopy procedure. A rectal exam was performed revealing no abnormalities. The colonoscope was then introduced to the rectum and advanced to the cecum in the usual fashion. The cecum was identified by the appendiceal orifice, the mucosal tri-fold, and the ileocecal valve. The scope was then retracted while rotating side to side and examining each mucosal fold. Multiple 5mm-10mm polyps were seen. These were found in the cecum, the ascending colon, and the rectum. Polyps were r emoved from the cecum, the ascending colon at 130 cm, and the rectum. There were polyps in the ascending colon that were not removed due to difficult angle of removal. At the conclusion of the procedure retroflexion was performed and small grade 1-2 internal hemorrhoids without stigmata of bleeding were seen. The scope was then withdrawn from the rectum the procedure was concluded. The patient tolerated the procedure well and was transferred to the PACU in stable condition. Scope withdrawal time: 10 Findings: gastritis (and duodenitis) and polyp (multiple colon polyps) Specimen(s): other (duodenal biopsy, stomach biopsy, esophagus biopsy, colon polyps x 3) Complications: none Impression: Source of GI bleed is likley slow loss from the gastritis and duodenitis. Polyps were not a likely source of bleeding. He may have a small bowel source that has not been identified but this is less likely. Post-procedure Recommendations: Colonscopy in 1 year, Start medication(s) (PPI) and Other recommendation (Follow up with me in clinic. Have repeat EGD in 3-6 months.) Plan for aftercare: Return to hospital floor. Advance diet as tolerated. Mon itor hgb. If pt can delay restart of plavix until after repeat EGD this would be optimal. If not, go ahead and restart plavix and closely monitor hgb and keep pt on double dose PPI. Follow up: as needed Disposition: PACU
[2020-02-14 14:41] LABS: Hematocrit 22.6 % (41-53); Hemoglobin 7.3 g/dL (13.5-17.5)
--- NOTE | 2020-02-14 15:52 | PC.NURSE ---
Addendum entered by Kenisha Quezada R.N. 02/14/20 17:26: Pt denies dizziness when up. No exertional dyspnea. Dr. Hayes in to see patient. Discussed with MD pt's most recent labs. No plan to transfuse at this time per MD. Will recheck in a.m. Pt taking clear liquid diet with enthusiasm. Original Note: Pt up to bathroom for liquid yellow stool with flecks of brown stool. Denies nausea, denies pain. Bowel tones are hyperactive. Denies dizziness when up. Eager for clear liquid diet. Spouse is present with pt in room. BL calf scd's replaced.
--- NOTE | 2020-02-14 16:26 | DIET.PN ---
Dietary Progress Note Assessment: 69y M admitted for repeat falls, SOB, found to have gastritis, duodenitis referred to nutrition per pt's request for information on weight loss. Pt reports he has lost 25# and interested in further weight loss. Provided pt and spouse with handouts on healthy snacks, tips for incorporating fruits and veggies in diet, and elder nutrition reccs. Pt's states she loves vegetables, and pt loves fruits, they often go to the store because they need more F/V. Discussed role of physical activity in achieving and maintaining weight loss. To focus on long, slow walking routine to target fat burn. Pt endorses sedentary lifestyle but hopes to change this now he has had back surgery in November. HT: 156.2cm WT: 87.2kg BMI: 35.7
--- NOTE | 2020-02-14 17:12 | P.PN_ITS ---
Subjective Subjective Date Patient Seen: 02/14/20 Time Patient Seen: 17:12 Interval history: Sherwin Sparks is a 69-year-old male with past medical history of anxiety, BPH, chronic back pain, hypertension, hyperlipidemia, type 2 diabetes with neuropathy, prior CVA (Wallenberg syndrome), and iron deficiency anemia who presented with worsening fatigue and weakness, as well as dyspnea on exertion who was admitted for symptomatic anemia secondary to GI bleeding. He underwent EGD and colonoscopy today which revealed gastritis, duodenitis, and multiple colonic polyps. Biopsies were taken. Patient's hemoglobin has slowly continued to down trend after transfusion. He is asymptomatic following EGD today. He denies any chest pain, palpitations, abdominal pain, nausea, vomiting. With the bowel prep he did not have any dark or red stools, stating that it was clear yellow in appearance. Exam Vital Signs (past 8 hours): - 02/14/20 09:30 02/14/20 09:32 02/14/20 12:45 Temperature 97.5 F L 96.6 F L Pulse Rate 66 62 Respiratory Rate 17 16 Blood Pressure 133/70 110/64 Pulse Oximetry 97 97 99 02/14/20 13:49 02/14/20 13:55 02/14/20 14:00 Temperature 97.5 F L Pulse Rate 64 68 72 Respiratory Rate 14 8 L 8 L Blood Pressure 102/43 L 110/48 L 116/41 L Pulse Oximetry 100 96 98 02/14/20 14:05 02/14/20 14:12 02/14/20 15:43 Temperature 98.9 F 97.6 F Pulse Rate 69 72 60 Respiratory Rate 10 L 14 17 Blood Pressure 112/52 L 127/65 133/57 L Pulse Oximetry 97 96 94 02/14/20 17:00 Temperature 97.3 F L Pulse Rate 66 Respiratory Rate 19 Blood Pressure 145/68 H Pulse Oximetry 95 Oxygen Delivery Method Room Air Oxygen Flow Rate 0 Narrative Exam Narrative: GENERAL APPEARANCE: Well developed, well nourished, mildly ill- appearing male appears slightly fatigued SKIN: Inspection of the skin reveals no rashes, ulcerations or petechiae. HEENT: Normocephalic atraumatic, extraocular muscles are intact, oropharynx is clear and mucous membranes are moist, neck is supple without adenopathy NECK: Supple and symmetric. There was no thyroid enlargement, and no tenderness, or masses were felt. CHEST: Normal AP diameter and normal contour without any kyphoscoliosis. LUNGS: Auscultation of the lungs revealed no wheezes, rhonchi, or rales. CARDIOVASCULAR: There was a regular rate and rhythm without any murmurs, gallops, rubs. Peripheral pulses were 2+ and symmetric. ABDOMEN: Soft and nontender with slightly hyperactive bowel sounds. No ascites was noted. MUSCULOSKELETAL: There was no tenderness or effusions noted. Muscle strength and tone were normal. EXTREMITIES: No cyanosis, clubbing or edema. NEUROLOGIC: Alert and oriented x 3. Normal affect. Strength is +5/5 in the Upper Extremities and Lower Extremities Bilaterally. Sensation to touch was normal. Objective Labs Result Diagrams: 02/14/20 14:21 02/14/20 05:20 Labs: Laboratory Results - last 24 hr 02/13/20 02/13/20 02/14/20 09:02 22:00 05:20 WBC 7.4 RBC 2.73 L Hgb 8.0 L 7.6 L Hct 24.4 L 23.1 L MCV 84.5 MCH 27.9 MCHC 33.0 RDW 17.9 H Plt Count 186 Neut % (Auto) 58.2 Lymph % (Auto) 29.1 [place] % (Auto) 9.4 Eos % (Auto) 2.3 Baso % (Auto) 1.0 Neut # (Auto) 4300 Lymph # (Auto) 2200 [place] # (Auto) 700 Eos # (Auto) 200 Baso # (Auto) 100 Sodium Potassium Chloride Carbon Dioxide BUN Creatinine Estimated GFR BUN/Creatinine Ratio Glucose Calcium Magnesium Total Bilirubin Conjugated Bilirubin Unconjugated Bilirubin AST ALT Alkaline Phosphatase Total Protein Albumin Globulin Albumin/Globulin Ratio COVID-19 PCR Crossmatch See Detail 02/14/20 02/14/20 02/14/20 05:20 11:05 14:21 WBC RBC Hgb 7.3 L Hct 22.6 L MCV MCH MCHC RDW Plt Count Neut % (Auto) Lymph % (Auto) [place] % (Auto) Eos % (Auto) Baso % (Auto) Neut # (Auto) Lymph # (Auto) [place] # (Auto) Eos # (Auto) Baso # (Auto) Sodium 137 Potassium 4.1 Chloride 107 Carbon Dioxide 26 BUN 30 H Creatinine 0.84 Estimated GFR > 60.0 BUN/Creatinine Ratio 35.7 H Glucose 115 H Calcium 8.3 L Magnesium 2.0 Total Bilirubin 0.5 Conjugated Bilirubin 0.0 Unconjugated Bilirubin 0.6 AST 25 ALT 19 Alkaline Phosphatase 53 Total Protein 5.6 L Albumin 3.1 L Globulin 2.5 Albumin/Globulin Ratio 1.2 COVID-19 PCR Negative Crossmatch Assessment & Plan Assessment & Plan narrative: Sherwin Sparks is a 69-year-old male with past medical history of anxiety, BPH, chronic back pain, hypertension, hype rlipidemia, type 2 diabetes with neuropathy, prior CVA (Wallenberg syndrome), and iron deficiency anemia who presented with worsening fatigue and weakness, as well as dyspnea on exertion over the past 2 days. He is admitted under observation status for acute blood loss anemia secondary to likely GI bleeding. On EGD today he was found to have gastritis and duodenitis, as well as multiple colonic polyps. His Hg continues to downtrend slowly to 7.3. He is asymptomatic at this time. 1. Acute on chronic blood loss anemia, present on admission -patient has been on supplemental iron therapy for iron deficiency anemia he reports for the past few years. He had not had a recent colonoscopy or an en doscopy. He did have 1 colonoscopy previously, but did not recall the findings. -Initial Hg 7.7, transfused 1 U PRBC for symptomatic anemia, responded to 8.2 but has downtrended to 7.3 since. Asymptomatic at this time and will continue to follow. -Surgery, Dr. Oshea, perfromed EGD / Colonoscopy today revealing egophagitis, duodenitis, and multiple small colonic polyps. If he continues to bleed, consider transfer for ? tagged RBC scan. Repeat C-scope recommended in 1 year. -given 40 mg protonix IV in the ED, continue 40 mg IV BID -CLD, ADAT after EGD. -Per surgery today, Source of GI bleed is likley slow loss from the gastritis and duodenitis. Polyps were not a likely source of bleeding. He may have a small bowel source that has not been identified but this is less likely. -continue iron 325 mg daily. 2. Gastritis / Duodenitis / GI bleeding. - see management as noted above 3. Type 2 diabetes -will hold home metformin, continue fingersticks a.c. hs and low-dose sliding scale insulin. 4. Hypertension -will continue to hold lisinopril, continue nightly amlodipine. 5. Prior CVA - have held home asa and plavix. Consider holding both upon discharge until surgery follow up, would preferentially resume asa 81 mg only as this is for secondary stroke prevention. Code: Full, surrogate decision maker is the patient's spouse DVT: SCD Dispo: Changed to inpatient status. Anticipate discharge home possibly tomorrow once h/h has stabilized and patient tolerating adequate diet. COVID-19 COVID-19 status: Negative Quality VTE Deep Vein Thrombosis/Pulmonary Embolism Present on Admission: No
[2020-02-14] MEDS: INSULIN ASPART 100 UNIT/ML INSULN PEN SUBCUT (17:13)
[2020-02-14] MEDS: DULOXETINE 30 MG CAPSULE PO (21:33)
[2020-02-14] MEDS: AMLODIPINE 5 MG TABLET PO (21:34)
[2020-02-14] MEDS: ATORVASTATIN 20 MG TABLET PO (21:34)
[2020-02-14] MEDS: clonazePAM 0.5 MG TABLET PO (21:34)
[2020-02-15 01:40] VITALS: BP 109/57; PULSE 64; RESP 16; TEMP 36.4; O2SAT 98
--- NOTE | 2020-02-15 02:04 | PC.NURSE ---
Patient is alert and oriented. Breath sounds CTA with RA sat of 98%. HRR; telemetry reading was SR. Denies nausea. BT present and abdomen is soft. Denies dysuria, frequency or urgency with urination. Able to turn himself in bed. When out of bed is provided SBA + walker for safety. Denies pain. Wearing bilateral calf SCD's. Fall risk score is high and bed alarm is activated.
[2020-02-15 04:31] VITALS: BP 144/90; PULSE 78; RESP 18; TEMP 36.6; O2SAT 99
[2020-02-15 05:39] LABS: Add Manual Diff / Slide Review NO; Basophils Absolute Auto 0 /uL (0-100); Basophils Percent Auto 0.5 % (0-2); Eosinophils Absolute Auto 200 /uL (0-450); Eosinophils Percent Auto 2.5 % (2-4); Hematocrit 21.6 % (41-53); Hemoglobin 7.1 g/dL (13.5-17.5); Lymphocytes Absolute Auto 1600 /uL (1100-4500); Mean Corpuscular HGB Conc 32.9 % (30-36); Mean Corpuscular Hemoglobin 28.1 PG (26-34); Mean Corpuscular Volume 85.4 fL (80-100); Monocytes Absolute Auto 800 /uL (0-900); Monocytes Percent Auto 10.1 % (3-14); Neutrophils Absolute Auto 5000 /uL (1500-7000); Neutrophils Percent Auto 65.9 % (50-75); Platelet Count 176 X10^3/uL (150-400); Red Blood Cell Count 2.52 X10^6/uL (4.5-5.9); Red Cell Distribution Width 17.8 % (11.6-14.8); White Blood Cell Count 7.6 X10^3/uL (4.5-11.0)
[2020-02-15 05:54] LABS: Alanine Aminotransferase 30 IU/L (<50); Albumin Globulin Ratio 1.2 (1.0-2.8); Alkaline Phosphatase 54 U/L (38-126); Aspartate Aminotransferase 32 IU/L (17-59); Bilirubin Total 0.5 mg/dL (0.2-1.3); Bilirubin Unconjugated 0.6 mg/dL (0.0-1.1); Blood Urea Nitrogen 18 mg/dL (9-20); Calcium 8.3 mg/dL (8.4-10.2); Carbon Dioxide 27 mmol/L (22-32); Chloride 106 mmol/L (98-107); Estimated Glomerular Filt Rate > 60.0 mL/min (>60); Globulin 2.5 g/dL (1.7-4.1); Glucose 115 mg/dL (80-110); HEMOLYSIS < 15 (0-50); Potassium 3.7 mmol/L (3.4-5.1); Sodium 136 mmol/L (137-145); Total Protein 5.5 g/dL (6.3-8.2)
[2020-02-15 08:09] VITALS: BP 130/68; PULSE 64; RESP 16; TEMP 36.2; O2SAT 94
[2020-02-15 08:50] VITALS: O2SAT 97
[2020-02-15] MEDS: GABAPENTIN 600 MG TABLET PO (08:58)
[2020-02-15] MEDS: PANTOPRAZOLE 40 MG VIAL IV (08:59)
[2020-02-15] MEDS: TAMSULOSIN 0.4 MG CAPSULE PO (08:59)
[2020-02-15] MEDS: BACLOFEN 10 MG TABLET 20 MG PO (08:59)
[2020-02-15] MEDS: SODIUM CHLORIDE 0.9% FLUSH 10 ML IV ×2 (08:59→09:53)
[2020-02-15] MEDS: FERROUS SULFATE 325 MG TABLET PO (08:59)
[2020-02-15] MEDS: IRON SUCROSE 200 MG in SODIUM CHLORIDE 0.9% 100 ML 220 ML IV (09:53)
[2020-02-15 09:55] VITALS: O2SAT 97
--- NOTE | 2020-02-15 10:42 | P.DS_ITS ---
History of Present Illness History of Present Illness Chief complaint: 3x Falls, SOB Narrative: Sherwin Sparks is a 69-year-old male with past medical history of anxiety, BPH, chronic back pain, hypertension, hyperlipidemia, type 2 diabetes with neuropathy, prior CVA (Wallenberg syndrome), and iron deficiency anemia who presented with worsening fatigue and weakness, as well as dyspnea on exertion over the past 2 days. Patient states he has noticed that he has been more short of breath on exertion over approximately the past week, but only mildly until a couple of days ago when he threw up once. This emesis was nonbloody and nonbilious. Since that episode he has not eaten, and has fallen twice since evening and was slightly more confused according to his . He feels extremely lightheaded and dizzy whenever he stands up. He also complains of dyspnea on exertion after walking only a couple of feet. He denies any cough, fever, chest pain a palpitations, abdominal pain. He denies any weakness, or change in his chronic lower extremity neuropathy symptoms. In the emergency room, patient ranged from borderline hypotension to hypertensive. Other vital signs were unremarkable. Initial laboratory evaluation showed a hemoglobin of 7.7 down from 13 in October of this year, and 10 from November of this year. He received 1 unit PRBC for symptomatic transfusion. His hemoglobin subsequently climbed to 8.2. Initial chemistry exam was notable for an elevated BUN to 51, glucose of 155, and total protein of 5.5 but was otherwise unremarkable. Troponin was negative. EKG did not show any evidence of active ischemia. He was guaiac positive in the emergency room. CTA chest abdomen pelvis showed No evidence of aortic aneurysm or dissection. 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 Coronary artery disease Long segment transverse colon mural thickening raising the possibility of infectious/inflammatory colitis, versus statistically less likely ischemic etiology. CT head was unremarkable. Patient was admitted to Medicine for symptomatic anemia. Dr. Chan of surgery was consulted and plans for an EGD/colonoscopy tomorrow. Discharge Providers Provider Date of admission: 02/14/20 09:28 Discharge Date: 02/15/20 Primary care physician: Elton Dang MD Consults: 02/13/20 13:40 Consult to Dietitian, Adult Routine Comment: Reason For Exam: Lost 25 lbs, wants to, wants more information 02/13/20 13:59 Consult to General Surgery Routine Comment: Consulting Provider: Jian Chan Reason for consultation: GI bleeding Has provider been notified: Yes Discharge provider: William Bello MD Summary Hospital Course Discharge Diagnosis: 1. Acute on chronic blood loss anemia 2. Chronic gastritis and duodenitis likely due to aspirin therapy 3. Colon polyps x 3 4. Type 2 diabetes 5. History of posterior CVA Hospital Course: Sherwin Sparks is a 69-year-old male with past medical history of anxiety, BPH, chronic back pain, hypertension, hyperlipidemia, type 2 diabe parrish with neuropathy, prior CVA (Wallenberg syndrome), and iron deficiency anemia who presented with worsening fatigue and weakness, as well as dyspnea on exertion over the past 2 days. He was found to be severely anemic. His EGD showed gastritis and duodenitis likely cause of chronic GI bleed. He also had 3 colon polyps. Biopsies report pending. He was started on high-dose Protonix. Patient has history of posterior CVA about 4-5 years ago and has been on dual anti-platelet therapy with aspirin and Plavix since then. He recalls being on low-dose aspirin prior to this event. He has not had any further episodes of TIA or CVA. At this point it makes sense to drop the aspirin and continue the clopidogrel. He will hold the clopidogrel for 1 week and then resume. He will continue twice daily high-dose Protonix therapy. Initial hemoglobin 7.7 and improved to 8.2 after transfusion. He received total 1 unit PRBC. His hemoglobin on 02/14 day of discharge is 7.1 but patient is not having dizziness or lightheadedness or excessive fatigue or dyspnea and this repeat drop is likely due to volume shift. He also received infusion of 200 mg IV iron sucrose prior to discharge. He will continue on oral iron therapy. Dr. Chopra recommends a repeat EGD in 3-6 months and colonoscopy in 12 months. Status at Discharge Cognitive/behavioral status at discharge: oriented Functional status at discharge: independent ambulation Overall status at discharge: patient is back to baseline Time Spent with Patient Time spent: Greater than 30 minutes Exam Vital Signs (past 8 hours): - 02/15/20 04:31 02/15/20 08:09 02/15/20 08:50 Temperature 97.9 F 97.1 F L Pulse Rate 78 64 Respiratory Rate 18 16 Blood Pressure 144/90 H 130/68 Pulse Oximetry 99 94 97 02/15/20 09:55 Temperature Pulse Rate Respiratory Rate Blood Pressure Pulse Oximetry 97 Oxygen Delivery Method Room Air Oxygen Flow Rate 0 Objective Labs Result Diagrams: 02/15/20 05:26 02/15/20 05:26 Labs: Laboratory Results - last 24 hr 02/14/20 02/14/20 02/15/20 11:05 14:21 05:26 WBC 7.6 RBC 2.52 L Hgb 7.3 L 7.1 L Hct 22.6 L 21.6 L MCV 85.4 MCH 28.1 MCHC 32.9 RDW 17.8 H Plt Count 176 Neut % (Auto) 65.9 Lymph % (Auto) 21.0 L [place] % (Auto) 10.1 Eos % (Auto) 2.5 Baso % (Auto) 0.5 Neut # (Auto) 5000 Lymph # (Auto) 1600 [place] # (Auto) 800 Eos # (Auto) 200 Baso # (Auto) 0 Sodium Potassium Chloride Carbon Dioxide BUN Creatinine Estimated GFR BUN/Creatinine Ratio Glucose Calcium Magnesium Total Bilirubin Conjugated Bilirubin Unconjugated Bilirubin AST ALT Alkaline Phosphatase Total Protein Albumin Globulin Albumin/Globulin Ratio COVID-19 PCR Negative 02/15/20 05:26 WBC RBC Hgb Hct MCV MCH MCHC RDW Plt Count Neut % (Auto) Lymph % (Auto) [place] % (Auto) Eos % (Auto) Baso % (Auto) Neut # (Auto) Lymph # (Auto) [place] # (Auto) Eos # (Auto) Baso # (Auto) Sodium 136 L Potassium 3.7 Chloride 106 Carbon Dioxide 27 BUN 18 Creatinine 0.72 Estimated GFR > 60.0 BUN/Creatinine Ratio 25.0 H Glucose 115 H Calcium 8.3 L Magnesium 2.0 Total Bilirubin 0.5 Conjugated Bilirubin 0.0 Unconjugated Bilirubin 0.6 AST 32 ALT 30 Alkaline Phosphatase 54 Total Protein 5.5 L Albumin 3.0 L Globulin 2.5 Albumin/Globulin Ratio 1.2 COVID-19 PCR Discharge Plan Discharge Plan Patient Disposition: Home Discharge comment: You were admitted due to chronic GI bleed. Endoscopy showed inflammation of the stomach and duodenal lining likely due to aspirin therapy. Colonoscopy showed multiple colon polyps. Biopsies report is pending. We started you on twice daily pantoprazole. You should stop taking aspirin but resume clopidogrel in [address] Oshea recommends repeat EGD in 3 to 6 months and repeat colonoscopy in 1 year. We gave you iron infusion prior to discharge and you should continue taking the oral iron. Discharge orders & Medications Prescriptions: New pantoprazole 40 mg tablet,delayed release (DR/EC) 40 mg PO BID 30 Days Qty: 60 RF: 0 Continued ferrous sulfate [iron] 325 mg (65 mg iron) Tablet 650 mg PO DAILY Qty: 0 RF: 0 lisinopril 20 mg tablet 20 mg PO QDAY Qty: 90 RF: 3 baclofen 20 mg tablet See Rx Instructions .ROUTE .COMPLEX Qty: 270 RF: 3 clonazepam 1 mg tablet 0.5 mg PO HS Qty: 30 RF: 3 albuterol sulfate [Ventolin HFA] 90 mcg/actuation HFA aerosol inhaler 1 puff INHALATION PRN PRN (Reason: bronchospasm) Qty: 18 RF: 3 amlodipine 5 mg Tablet 10 mg PO BEDTIME RF: 0 duloxetine 30 mg Capsule,Delayed Release(Dr/Ec) 30 mg PO BEDTIME RF: 0 metformin [Glucophage] 500 mg tablet 1,000 mg PO BIDCC RF: 0 clopidogrel 75 mg tablet 75 mg PO DAILY RF: 0 tamsulosin [Flomax] 0.4 mg capsule 0.12 mg PO QDAY RF: 0 Qvar RediHaler 80 mcg/actuation Hfa Aerosol Breath Activated 1 inh INHALATION BID PRN (Reason: Shortness Of Breath) RF: 0 gabapentin 600 mg Tablet 600 mg PO BID RF: 0 atorvastatin [Lipitor] 20 mg tablet 20 mg PO BEDTIME RF: 0 Discontinued aspirin 325 mg Tablet 81 mg PO DAILY Qty: 0 RF: 0 Follow up/Referrals: Elton Dang MD [Primary Care Provider] - Nena Oshea MD [Physician] - Discharge Health Status Multidrug resistant organism: No MDRO Diet/Activity/Treatments Diet: Diet as Tolerated Visit Report/Discharge Packet Instructions: Iron-Deficiency Anemia, DI for Colon Polypectomy, DI for Gastritis, DI for Duodenitis Visit Report Forms: Patient Portal/API, Stroke Signs & Symptoms Discharge Data Primary Care Provider: Elton Dang Quality VTE Deep Vein Thrombosis/Pulmonary Embolism Present on Admission: No
--- NOTE | 2020-02-15 11:26 | PC.NURSE ---
Pt is dressed and ready for discharge home with Spouse. IV removed after iron infused. Reviewed d/c meds, time of last dose, stroke education, encouraged fluid intake to prevent constipation and discussed follow up appointment. Also reminded Pt to get up slowly from bed or chair to prevent falls and weakness secondary to anemia. Pt denies further questions and was taken out via w/c by ENGINE REPAIR SUPERVISOR with Spouse and all belongings.
--- NOTE | 2020-02-15 12:22 | CM.DPC ---
DCP: continued: met again with pt and his in Team Bedside Rounds. Pt was found sitting up in chair, receiving iron infusion and looking much improved. Dr. Bello explained to all pt's readiness for d/c and the medication changes planned. Pt will be following up with Dr. Oshea's office re biopsy results taking during the procedures done yesterday. Both pt and his stated they were very pleased that he could d/c to home today.
--- NOTE | 2020-03-11 21:30 | PC.NURSE ---
Late entry: patient had blood running at time of transfer at 1357.
== END 2020-02-15 11:29 | disposition home or self-care (01) | DRG 378 ==
LOC: ED 11:17 → AC 11:34
PROVIDERS: Surgery; Admitting Provider Internal Medicine; Emergency Provider Emergency Medicine; Family Provider Family Medicine; PCP Family Medicine; Referring Provider Emergency Medicine; Visit Provider Internal Medicine
PROC: 0DJ08ZZ Inspection of Upper Intestinal Tract, Via Natural or Artificial Opening Endoscopic (ICD-10-PCS; CPT 43235; 2020-02-14 12:30)
PROC: 0DJD8ZZ Inspection of Lower Intestinal Tract, Via Natural or Artificial Opening Endoscopic (ICD-10-PCS; CPT 45378; 2020-02-14 12:30)
DX: K29.71 Gastritis, unspecified, with bleeding (principal); D62 Acute posthemorrhagic anemia; K29.81 Duodenitis with bleeding; E11.40 Type 2 diabetes mellitus with diabetic neuropathy, unspecified; K63.5 Polyp of colon; T39.015A Adverse effect of aspirin, initial encounter; N40.0 Benign prostatic hyperplasia without lower urinary tract symptoms; I10 Essential (primary) hypertension; E78.2 Mixed hyperlipidemia; I69.398 Other sequelae of cerebral infarction; G46.3 Brain stem stroke syndrome; D50.9 Iron deficiency anemia, unspecified; Z87.891 Personal history of nicotine dependence; Z79.84 Long term (current) use of oral hypoglycemic drugs; Z11.59 Encounter for screening for other viral diseases
CPT/HCPCS: 36415; 36430; 70450; 71275; 74174; 80048; 80053; 80076; 81003; 82550; 82962; 83605; 83735; 84484; 85014; 85018; 85025; 86850; 86900; 86901; 87040; 87635; 93005; 94150; 94760; 96374; 99285; G0378; P9016; C9113; J1756; J2250; Q9967

== ENCOUNTER 2020-04-28 10:30 | Outpatient (RCR) | payer OTHER, SELFPAY ==
[2019-11-08 15:47] VITALS: BMI 36.6
[2020-02-13 13:21] VITALS: BMI 36.6
--- NOTE | 2020-03-04 13:47 | PT.OIE ---
Current Diagnoses Strain of muscle, fascia and tendon of lower back, subsequent encounter (03/04/20) Arthrodesis status (03/04/20) Past Medical History (Last Reviewed 02/13/20 @ 15:09 by Jian Chan MD) Adopted (Acute) Anxiety (Acute) BPH (benign prostatic hyperplasia) (Chronic) Cervical myelopathy (Chronic 11/16/17) Cervical stenosis of spinal canal (Acute) Claustrophobia (Acute) Depression (Acute) Easy bruisability (Acute) Essential hypertension (Chronic 07/14/14) Iron deficiency (Chronic 07/31/17) Mixed hyperlipidemia (Chronic 01/24/12) Myelopathy (Acute) Panic disorder (Chronic) Poor sleep (Acute) 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) Recurrent major depressive disorder, in full remission (Chronic) RLS (restless legs syndrome) (Acute) Shortness of breath (Acute) Type 2 diabetes mellitus without complication (Chronic) Undescended testicle of both sides (Acute) Past Surgical History (Last Reviewed 02/13/20 @ 15:09 by Jian Chan MD) History of spinal fusion Visit Care Team Role Provider Type Elton Dang MD Family Provider Non-Staff Primary Care Provider Specialty: Family Practice Address: [address] [place] [address], [address], [place], [address] Email: Tc Cho MD Attending Provider Physician Referring Provider Specialty: Orthopedic Surgery Address: [address] [place] [address], [id number] Email: [email or web address] Initial Evaluation PT-OP-A Visit Information Start: 02/17/20 07:20 Freq: Status: Active Protocol: Document 03/04/20 10:31 MB (Rec: 03/04/20 10:44 MB [id number]) Out-Patient Physical Therapy Visit Information Visit Information Visit Type Initial Evaluation Visit Note [employer] Visit Start Time 10:31 Visit Stop Time 11:00 Total Visit Minutes 29 Visit Number 1 Evaluation Information Evaluation Date 03/04/20 Precautions Precautions Fall risk PT-OP-B Current Condition Start: 02/17/20 07:20 Freq: Status: Active Protocol: Document 03/04/20 10:31 MB (Rec: 03/04/20 10:44 MB [id number]) Current Condition History of Current Condition Onset Date 2014 Current Complaints Right adductor, SI and foot pain. History of Current Condition Pt underwent spine surgery October 2019 and states that it was a fusion. It was supposed to help with right leg pain but has really not done so. Pt reports 5/10 right adductor area pain, 2/10 right SI pain, 3/10 right foot pain. He has a history of B foot neuropathy. They think it is from his back. He is pre- diabetic. He reports neuropathy for 3 years. He has restless leg syndrome. He has had it for five years. Back pain started around that time. Pt states that he feels that his hips are waited when he stands up and that he cannot stand up very long. He has been using SBQC in his right hand. He is sleeping pretty well. He sleeps on his right side or belly. He uses pillow between knees when on side. He reports numbness and tingling in the feet and that he feels nerve issues in the right leg. Sometimes the neuropathy keeps him from sleeping but he is sleeping up to 6-7 hours a night. Pt states that he was very anemic and falling down some after GI bleed in February. He was admitted and had a colonoscopy and endoscopy and is awaiting results this Monday. He is taking an iron supplement. He is regular bowel movements and does not notice occult blood in stool. He has not had any recent falls. He reports his last fall was in February before he went to hospital the last time . Prior Treatments and Tests Lumbar spinal fusion 10/2019 No PT in past Treatment Goals Patient/Caregiver Goals To get the strength back in his leg and be able to get up off the ground such as with gardening. He would like to work in arm strength as well to help with sit and stands. PT-OP-C Subjective Start: 02/17/20 07:20 Freq: Status: Active Protocol: Document 03/04/20 10:31 MB (Rec: 03/04/20 10:44 MB [id number]) OP-PT Subjective Patient Comments Patient Comments See history of current condition. Patient Questionnaires Oswestry Low Back Index Oswestry Score 18 Oswestry Impairment 20 to 39% Impaired (Score 20- 39) PT-OP-G Mobility & Gait Start: 03/04/20 13:29 Freq: Status: Active Protocol: Document 03/04/20 10:31 MB (Rec: 03/04/20 13:47 MB [id number]) OP Gait Assessment Gait Gait Assistance Required: Independent Distance (Feet) 65 Assistive Devices Assistive Device Small Based Quad Cane Orthotic/Prosthetic Devices or Brace: No Gait Deviations General Gait Pattern Antalgic,Ataxic,Decreased Stride Length,Decreased Feet Clearance,Flexed Trunk,Lateral Trunk Lean Factors Limiting Gait Function Factors Limiting Gait Function Decreased Strength,Pain,Poor Balance Comments Gait Comments Pt arrives with cane in right hand. PT educates pt to walk with cane in left hand in order to unweight right LLE. Pt lowers cane 1 and his gait is mildly better. PT-OP-J Posture/Palpation/Skin Start: 02/17/20 07:20 Freq: Status: Active Protocol: Document 03/04/20 10:31 MB (Rec: 03/04/20 13:47 MB [id number]) Posture Evaluation Comments Posture Comments Standing posture: B shoulder elevation, greater on the left with anterior positioning of left shoulder, Dowager's hump, decreased thoracic kyphosis, right iliac crest higer than the left, pt stands with heels close and increased Peter angle on the left, anterior tilt pelvis and increased lower lumbar lordosis. Pt reports old TIA or stroke that might have affected his right side but he is not clear about the symptoms. Pt with post-surgical scars that are healing over central spine T12 -L5 and to the left of his lumbar spine. Deferred repeated lumbar flexion and extension d/t history of spinal fusion, similarly deferred Slump s/p fusion and known LE symptoms from spine pre-op. PT-OP-M Strength Start: 02/17/20 07:20 Freq: Status: Active Protocol: Document 03/04/20 10:31 MB (Rec: 03/04/20 13:47 MB [id number]) Hip Strength Hip Manual Muscle Testing Left Flexion (L2) 4 Good Abduction 3+ Fair+ Adduction 5 Normal Comments Supine Right Flexion (L2) 3+ Fair+ Abduction 3 Fair Adduction 3+ Fair+ Comments Pt supine Knee Strength Knee Manual Muscle Testing Left Flexion (S2) 4 Good Extension (L3) 5 Normal Comments Supine Right Flexion (S2) 4 Good Extension (L3) 4 Good Comments Supine Ankle/Foot Strength Ankle and Foot Manual Muscle Testing Left Dorsiflexion (L4) 4 Good Comments Great toe extension 3/5 Right Dorsiflexion (L4) 4 Good Comments Great toe extension 3-/5 PT-OP-T Assessment and Plan Start: 02/17/20 07:20 Freq: Status: Active Protocol: Document 03/04/20 10:31 MB (Rec: 03/04/20 13:47 MB [id number]) Physical Therapy Assessment Rehab Potential Rehabilitation Potential Fair Evaluation Complexity Number of Personal Factors/Comorbidities 1-2 Number of Body Systems Impaired 1-2 Clinical Presentation at Evaluation Evolving Impairments Impairments Activity Tolerance,Balance, Gait,Pain,Posture,ROM,Soft Tissue Mobility,Strength Other Impairments Pt reports history of B peripheral neuropathy, ongoing LE symptoms after surgery, recent fusion Goals 5 Back End Architect Goal (LTG) Pt will perform progressive HEP with I including pelvic realignment, postural, flexibility, strengthening and balance exercises to improve pain and function by 05/06/2020. LTG Duration 8 weeks 4 Residential Goal (LTG) Pt will present with B hip flexion, abduction, adduction MMT to at least 4/5 by 2019 to improve functional transfers and gait. LTG Duration 8 weeks 3 Back End Architect Goal (LTG) Pt will gait train at least 1000 feet in 6 minutes with LRAD if needed to improve community ambulation by 2019. LTG Duration 8 weeks 2 Back End Architect Goal (LTG) Pt will report a 50% improvement in right leg pain to improve functional transfers and gait by 05/06/2020 . LTG Duration 8 weeks 1 Back End Architect Goal (LTG) Pt will present with an improved Oswestry LBP score to reflect no more than 20% impairment to reflect less pain with function by 05/06/2020 . LTG Duration 8 weeks Assessment Summary Assessment Pt is a 69 y/o male presenting with reports of ongoing right LE pain that has not improved after spinal fusion. Pt presents with weakness, decreased balance, poor gait, postural changes, pelvic obliquities and reports of B LE peripheral neuropathy. Pt can perform Romberg with EO and EC this date but cannot tolerate SLS. Pt will benefit from PT for alignment, flexiblity, strengthening, balance and gait training. Physical Therapy Plan Frequency and Duration Frequency of Treatment 2x/Week Duration of Treatment 8 weeks Plan of Care Start Date 03/04/20 Plan of Care End Date 05/06/20 Therapeutic Interventions Therapeutic Interventions Aquatic Therapy,Balance Training,Canalithic Repositioning,Gait Training, Home Exercise Program,Manual Therapy,Neuromuscular Re- education,Patient/Caregiver Education,Self-Care/Home Management,Sensory Integration ,Soft Tissue Mobilization, Taping,Therapeutic Activities, Therapeutic Exercises Modalities Cold Pack/Ice Massage,Electric Stimulation,Hot Packs, Ultrasound Next Visit Focus/Plan Next Note Type Treatment Note Next Visit Plan Initiate pelvic realignment exercises
--- NOTE | 2020-03-04 13:47 | PT.OPPOC ---
Physical, Occupational & Speech Therapy [facility] Current Diagnoses Strain of muscle, fascia and tendon of lower back, subsequent encounter (03/04/20) Arthrodesis status (03/04/20) Visit Care Team Role Provider Type Elton Dang MD Family Provider Non-Staff Primary Care Provider Specialty: Family Practice Address: [address], [address], [place], [address] Email: Tc Cho MD Attending Provider Physician Referring Provider Specialty: Orthopedic Surgery Address: [address] [place] [address], [place], [address] Email: [email or web address] Plan Of Care PT-OP-T Assessment and Plan Start: 02/17/20 07:20 Freq: Status: Active Protocol: Document 03/04/20 10:31 MB (Rec: 03/04/20 13:47 MB [id number]) Physical Therapy Assessment Rehab Potential Rehabilitation Potential Fair Evaluation Complexity Number of Personal Factors/Comorbidities 1-2 Number of Body Systems Impaired 1-2 Clinical Presentation at Evaluation Evolving Impairments Impairments Activity Tolerance,Balance, Gait,Pain,Posture,ROM,Soft Tissue Mobility,Strength Other Impairments Pt reports history of B peripheral neuropathy, ongoing LE symptoms after surgery, recent fusion Goals 5 Reconciling Clerk Goal (LTG) Pt will perform progressive HEP with I including pelvic realignment, postural, flexibility, strengthening and balance exercises to improve pain and function by 05/06/2020. LTG Duration 8 weeks 4 Custodial Goal (LTG) Pt will present with B hip flexion, abduction, adduction MMT to at least 4/5 by 2019 to improve functional transfers and gait. LTG Duration 8 weeks 3 Reconciling Clerk Goal (LTG) Pt will gait train at least 1000 feet in 6 minutes with LRAD if needed to improve community ambulation by 2019. LTG Duration 8 weeks 2 Custodial Goal (LTG) Pt will report a 50% improvement in right leg pain to improve functional transfers and gait by 05/06/2020 . LTG Duration 8 weeks 1 Reconciling Clerk Goal (LTG) Pt will present with an improved Oswestry LBP score to reflect no more than 20% impairment to reflect less pain with function by 05/06/2020 . LTG Duration 8 weeks Assessment Summary Assessment Pt is a 69 y/o male presenting with reports of ongoing right LE pain that has not improved after spinal fusion. Pt presents with weakness, decreased balance, poor gait, postural changes, pelvic obliquities and reports of B LE peripheral neuropathy. Pt can perform Romberg with EO and EC this date but cannot tolerate SLS. Pt will benefit from PT for alignment, flexiblity, strengthening, balance and gait training. Physical Therapy Plan Frequency and Duration Frequency of Treatment 2x/Week Duration of Treatment 8 weeks Plan of Care Start Date 03/04/20 Plan of Care End Date 05/06/20 Therapeutic Interventions Therapeutic Interventions Aquatic Therapy,Balance Training,Canalithic Repositioning,Gait Training, Home Exercise Program,Manual Therapy,Neuromuscular Re- education,Patient/Caregiver Education,Self-Care/Home Management,Sensory Integration ,Soft Tissue Mobilization, Taping,Therapeutic Activities, Therapeutic Exercises Modalities Cold Pack/Ice Massage,Electric Stimulation,Hot Packs, Ultrasound Next Visit Focus/Plan Next Note Type Treatment Note Next Visit Plan Initiate pelvic realignment exercises Plan of Care Dates Plan of Care Start Date 03/04/20 Plan of Care End Date 05/06/20 Electronically Signed by: Oralia Lopez PT 03/04/20 [id number] Please Sign and Return: I have reviewed this Plan of Care and certify that the skilled therapy services above are required to meet the patient?s needs. Physician Signature Date Printed Name and Credentials Clinical Instructor Signature Printed Name and Credentials
--- NOTE | 2020-03-11 14:31 | PT.OTN ---
Current Diagnoses Strain of muscle, fascia and tendon of lower back, subsequent encounter (03/11/20) Arthrodesis status (03/11/20) Physical Therapy Treatment Note PT-OP-A Visit Information Start: 02/17/20 07:20 Freq: Status: Active Protocol: Document 03/11/20 13:47 MB (Rec: 03/11/20 14:31 MB [id number]) Out-Patient Physical Therapy Visit Information Visit Information Visit Type Treatment Note Visit Note [employer] Visit Start Time 13:47 Visit Stop Time 14:30 Total Visit Minutes 42 Visit Number 2 PT-OP-B Current Condition Start: 02/17/20 07:20 Freq: Status: Active Protocol: Document 03/04/20 10:31 MB (Rec: 03/04/20 10:44 MB [id number]) Current Condition History of Current Condition Onset Date 2014 Current Complaints Right adductor, SI and foot pain. History of Current Condition Pt underwent spine surgery October 2019 and states that it was a fusion. It was supposed to help with right leg pain but has really not done so. Pt reports 5/10 right adductor area pain, 2/10 right SI pain, 3/10 right foot pain. He has a history of B foot neuropathy. They think it is from his back. He is pre- diabetic. He reports neuropathy for 3 years. He has restless leg syndrome. He has had it for five years. Back pain started around that time. Pt states that he feels that his hips are waited when he stands up and that he cannot stand up very long. He has been using SBQC in his right hand. He is sleeping pretty well. He sleeps on his right side or belly. He uses pillow between knees when on side. He reports numbness and tingling in the feet and that he feels nerve issues in the right leg. Sometimes the neuropathy keeps him from sleeping but he is sleeping up to 6-7 hours a night. Pt states that he was very anemic and falling down some after GI bleed in February. He was admitted and had a colonoscopy and endoscopy and is awaiting results this Monday. He is taking an iron supplement. He is regular bowel movements and does not notice occult blood in stool. He has not had any recent falls. He reports his last fall was in February before he went to hospital the last time . Prior Treatments and Tests Lumbar spinal fusion 10/2019 No PT in past Treatment Goals Patient/Caregiver Goals To get the strength back in his leg and be able to get up off the ground such as with gardening. He would like to work in arm strength as well to help with sit and stands. PT-OP-C Subjective Start: 02/17/20 07:20 Freq: Status: Active Protocol: Document 03/11/20 13:47 MB (Rec: 03/11/20 14:31 MB [id number]) OP-PT Subjective Patient Comments Patient Comments Pt reports no changes since evaluation. He is gardening some, pulling weeds, planting russell and has trouble getting up from the ground. PT-OP-G Mobility & Gait Start: 03/04/20 13:29 Freq: Status: Active Protocol: Document 03/04/20 10:31 MB (Rec: 03/04/20 13:47 MB [id number]) OP Gait Assessment Gait Gait Assistance Required: Independent Distance (Feet) 65 Assistive Devices Assistive Device Small Based Quad Cane Orthotic/Prosthetic Devices or Brace: No Gait Deviations General Gait Pattern Antalgic,Ataxic,Decreased Stride Length,Decreased Feet Clearance,Flexed Trunk,Lateral Trunk Lean Factors Limiting Gait Function Factors Limiting Gait Function Decreased Strength,Pain,Poor Balance Comments Gait Comments Pt arrives with cane in right hand. PT educates pt to walk with cane in left hand in order to unweight right LLE. Pt lowers cane 1 and his gait is mildly better. PT-OP-J Posture/Palpation/Skin Start: 02/17/20 07:20 Freq: Status: Active Protocol: Document 03/04/20 10:31 MB (Rec: 03/04/20 13:47 MB [id number]) Posture Evaluation Comments Posture Comments Standing posture: B shoulder elevation, greater on the left with anterior positioning of left shoulder, Dowager's hump, decreased thoracic kyphosis, right iliac crest higer than the left, pt stands with heels close and increased Peter angle on the left, anterior tilt pelvis and increased lower lumbar lordosis. Pt reports old TIA or stroke that might have affected his right side but he is not clear about the symptoms. Pt with post-surgical scars that are healing over central spine T12 -L5 and to the left of his lumbar spine. Deferred repeated lumbar flexion and extension d/t history of spinal fusion, similarly deferred Slump s/p fusion and known LE symptoms from spine pre-op. PT-OP-M Strength Start: 02/17/20 07:20 Freq: Status: Active Protocol: Document 03/04/20 10:31 MB (Rec: 03/04/20 13:47 MB [id number]) Hip Strength Hip Manual Muscle Testing Left Flexion (L2) 4 Good Abduction 3+ Fair+ Adduction 5 Normal Comments Supine Right Flexion (L2) 3+ Fair+ Abduction 3 Fair Adduction 3+ Fair+ Comments Pt supine Knee Strength Knee Manual Muscle Testing Left Flexion (S2) 4 Good Extension (L3) 5 Normal Comments Supine Right Flexion (S2) 4 Good Extension (L3) 4 Good Comments Supine Ankle/Foot Strength Ankle and Foot Manual Muscle Testing Left Dorsiflexion (L4) 4 Good Comments Great toe extension 3/5 Right Dorsiflexion (L4) 4 Good Comments Great toe extension 3-/5 PT-OP-Q Treatments Start: 02/17/20 07:20 Freq: Status: Active Protocol: Document 03/11/20 13:47 MB (Rec: 03/11/20 14:31 MB [id number]) Therapeutic Exercises Supine Exercises Lumbar rotation Comments 10 rocks in hook lying Pelvic alignment exercises Comments 5 reps all exercises, three second hold Gait Training Gait Activity With and without gait belt mimicing SI belt Comments Pt's gait is abnormal, pt has changes in spine and funcitonal leg length difference--right shorter, decreased right arm movement and pt reports from stroke, SI support does not change gait Manual Therapy Treatment Soft Tissue Mobilization LB and sacrum Comments Pt kneeling over wedge and lying forward over plinth--STM paraspinals, glute max, gentle grade I sacral mobs over sacrum. Increased tension thoracolumbar paraspinals. Self-Care/Home Management Treatment Education Other Education Hip flexor relaxation over couch, PT demo, pt tries with legs up on wedge Use of towel roll in pillow case for hip relaxation position and for sleeping PT-OP-T Assessment and Plan Start: 02/17/20 07:20 Freq: Status: Active Protocol: Document 03/11/20 13:47 MB (Rec: 03/11/20 14:31 MB [id number]) Physical Therapy Assessment Rehab Potential Rehabilitation Potential Fair Evaluation Complexity Number of Personal Factors/Comorbidities 1-2 Number of Body Systems Impaired 1-2 Clinical Presentation at Evaluation Evolving Impairments Impairments Activity Tolerance,Balance, Gait,Pain,Posture,ROM,Soft Tissue Mobility,Strength Other Impairments Pt reports history of B peripheral neuropathy, ongoing LE symptoms after surgery, recent fusion Goals 5 Penitentiary Goal (LTG) Pt will perform progressive HEP with I including pelvic realignment, postural, flexibility, strengthening and balance exercises to improve pain and function by 05/06/2020. LTG Duration 8 weeks 4 Business Office Manager Goal (LTG) Pt will present with B hip flexion, abduction, adduction MMT to at least 4/5 by 2019 to improve functional transfers and gait. LTG Duration 8 weeks 3 Penitentiary Goal (LTG) Pt will gait train at least 1000 feet in 6 minutes with LRAD if needed to improve community ambulation by 2019. LTG Duration 8 weeks 2 Business Office Manager Goal (LTG) Pt will report a 50% improvement in right leg pain to improve functional transfers and gait by 05/06/2020 . LTG Duration 8 weeks 1 Penitentiary Goal (LTG) Pt will present with an improved Oswestry LBP score to reflect no more than 20% impairment to reflect less pain with function by 05/06/2020 . LTG Duration 8 weeks Assessment Summary Assessment Initiated alignment exercises today. Pt with abnormal gait, has spinal and postural changes, partially post- surgery and partially post- stroke. He reports old cervical fusion. He holds B shoulders stiff and high. Physical Therapy Plan Frequency and Duration Frequency of Treatment 2x/Week Duration of Treatment 8 weeks Plan of Care Start Date 03/04/20 Plan of Care End Date 05/06/20 Therapeutic Interventions Therapeutic Interventions Aquatic Therapy,Balance Training,Canalithic Repositioning,Gait Training, Home Exercise Program,Manual Therapy,Neuromuscular Re- education,Patient/Caregiver Education,Self-Care/Home Management,Sensory Integration ,Soft Tissue Mobilization, Taping,Therapeutic Activities, Therapeutic Exercises Modalities Cold Pack/Ice Massage,Electric Stimulation,Hot Packs, Ultrasound Next Visit Focus/Plan Next Note Type Treatment Note Next Visit Plan Ongoing postural assessment, con't cork lift in right shoe if needed to help gait, SI belt
--- NOTE | 2020-03-13 12:17 | PT.OTN ---
Current Diagnoses Strain of muscle, fascia and tendon of lower back, subsequent encounter (03/13/20) Arthrodesis status (03/13/20) Physical Therapy Treatment Note PT-OP-A Visit Information Start: 02/17/20 07:20 Freq: Status: Active Protocol: Document 03/13/20 11:25 LRN (Rec: 03/13/20 12:16 LRN [id number]) Out-Patient Physical Therapy Visit Information Visit Information Visit Type Treatment Note Visit Start Time 11:25 Visit Stop Time 12:07 Total Visit Minutes 42 Visit Number 3 Evaluation Information Evaluation Date 03/04/20 Precautions Precautions Fall risk PT-OP-B Current Condition Start: 02/17/20 07:20 Freq: Status: Active Protocol: Document 03/04/20 10:31 MB (Rec: 03/04/20 10:44 MB [id number]) Current Condition History of Current Condition Onset Date 2014 Current Complaints Right adductor, SI and foot pain. History of Current Condition Pt underwent spine surgery October 2019 and states that it was a fusion. It was supposed to help with right leg pain but has really not done so. Pt reports 5/10 right adductor area pain, 2/10 right SI pain, 3/10 right foot pain. He has a history of B foot neuropathy. They think it is from his back. He is pre- diabetic. He reports neuropathy for 3 years. He has restless leg syndrome. He has had it for five years. Back pain started around that time. Pt states that he feels that his hips are waited when he stands up and that he cannot stand up very long. He has been using SBQC in his right hand. He is sleeping pretty well. He sleeps on his right side or belly. He uses pillow between knees when on side. He reports numbness and tingling in the feet and that he feels nerve issues in the right leg. Sometimes the neuropathy keeps him from sleeping but he is sleeping up to 6-7 hours a night. Pt states that he was very anemic and falling down some after GI bleed in February. He was admitted and had a colonoscopy and endoscopy and is awaiting results this Monday. He is taking an iron supplement. He is regular bowel movements and does not notice occult blood in stool. He has not had any recent falls. He reports his last fall was in February before he went to hospital the last time . Prior Treatments and Tests Lumbar spinal fusion 10/2019 No PT in past Treatment Goals Patient/Caregiver Goals To get the strength back in his leg and be able to get up off the ground such as with gardening. He would like to work in arm strength as well to help with sit and stands. PT-OP-C Subjective Start: 02/17/20 07:20 Freq: Status: Active Protocol: Document 03/13/20 11:25 LRN (Rec: 03/13/20 12:16 LRN [id number]) OP-PT Subjective Patient Comments Patient Comments States he is the same. Pain is 1/10. Here to build strength in legs and arms. PT-OP-G Mobility & Gait Start: 03/04/20 13:29 Freq: Status: Active Protocol: Document 03/04/20 10:31 MB (Rec: 03/04/20 13:47 MB [id number]) OP Gait Assessment Gait Gait Assistance Required: Independent Distance (Feet) 65 Assistive Devices Assistive Device Small Based Quad Cane Orthotic/Prosthetic Devices or Brace: No Gait Deviations General Gait Pattern Antalgic,Ataxic,Decreased Stride Length,Decreased Feet Clearance,Flexed Trunk,Lateral Trunk Lean Factors Limiting Gait Function Factors Limiting Gait Function Decreased Strength,Pain,Poor Balance Comments Gait Comments Pt arrives with cane in right hand. PT educates pt to walk with cane in left hand in order to unweight right LLE. Pt lowers cane 1 and his gait is mildly better. PT-OP-J Posture/Palpation/Skin Start: 02/17/20 07:20 Freq: Status: Active Protocol: Document 03/04/20 10:31 MB (Rec: 03/04/20 13:47 MB [id number]) Posture Evaluation Comments Posture Comments Standing posture: B shoulder elevation, greater on the left with anterior positioning of left shoulder, Dowager's hump, decreased thoracic kyphosis, right iliac crest higer than the left, pt stands with heels close and increased Peter angle on the left, anterior tilt pelvis and increased lower lumbar lordosis. Pt reports old TIA or stroke that might have affected his right side but he is not clear about the symptoms. Pt with post-surgical scars that are healing over central spine T12 -L5 and to the left of his lumbar spine. Deferred repeated lumbar flexion and extension d/t history of spinal fusion, similarly deferred Slump s/p fusion and known LE symptoms from spine pre-op. PT-OP-M Strength Start: 02/17/20 07:20 Freq: Status: Active Protocol: Document 03/04/20 10:31 MB (Rec: 03/04/20 13:47 MB [id number]) Hip Strength Hip Manual Muscle Testing Left Flexion (L2) 4 Good Abduction 3+ Fair+ Adduction 5 Normal Comments Supine Right Flexion (L2) 3+ Fair+ Abduction 3 Fair Adduction 3+ Fair+ Comments Pt supine Knee Strength Knee Manual Muscle Testing Left Flexion (S2) 4 Good Extension (L3) 5 Normal Comments Supine Right Flexion (S2) 4 Good Extension (L3) 4 Good Comments Supine Ankle/Foot Strength Ankle and Foot Manual Muscle Testing Left Dorsiflexion (L4) 4 Good Comments Great toe extension 3/5 Right Dorsiflexion (L4) 4 Good Comments Great toe extension 3-/5 PT-OP-Q Treatments Start: 02/17/20 07:20 Freq: Status: Active Protocol: Document 03/13/20 11:25 LRN (Rec: 03/13/20 12:16 LRN [id number]) Therapeutic Exercises Supine Exercises TA Supine Exercise Name TA after pelvic alignment ex Reps/Minutes 10 hold x 10 DKTC Supine Exercise Name Gentle DKTC Reps/Minutes 10 hold x 10 Bridging Supine Exercise Name Bridging after pelvic alignment ex Reps/Minutes 10x 2 Lumbar rotation Comments 10 rocks in hook lying Pelvic alignment exercises Supine Exercise Name Ball squeeze f/b L leg press into hands Side left Comments 5 reps all exercises, three second hold Sidelying Exercises TA Sidelying Exercise Name TA Side bilateral Reps/Minutes 10 hold x 5 Sitting Exercises Clamshell Sitting Exercise Name Clamshell Side bilateral Resistance Lev 1 Reps/Minutes 10x Comments Pt needed training to maintain stable position of pelvis during ex Self-Care/Home Management Treatment Education Patient Education Home Exercise Program Activities Self-Care/Home Management Activities Issue Lev 1 TBand and HEP for sitting clamshell with written instructions. Verbal I/S for starting the ex without resistance for 2 days, then trying with TBand. PT-OP-T Assessment and Plan Start: 02/17/20 07:20 Freq: Status: Active Protocol: Document 03/13/20 11:25 LRN (Rec: 03/13/20 12:16 LRN [id number]) Physical Therapy Assessment Goals 5 Senior Brand Manager Goal (LTG) Pt will perform progressive HEP with I including pelvic realignment, postural, flexibility, strengthening and balance exercises to improve pain and function by 05/06/2020. LTG Duration 8 weeks 4 Retirement Goal (LTG) Pt will present with B hip flexion, abduction, adduction MMT to at least 4/5 by 2019 to improve functional transfers and gait. LTG Duration 8 weeks 3 Senior Brand Manager Goal (LTG) Pt will gait train at least 1000 feet in 6 minutes with LRAD if needed to improve community ambulation by 2019. LTG Duration 8 weeks 2 Senior Brand Manager Goal (LTG) Pt will report a 50% improvement in right leg pain to improve functional transfers and gait by 05/06/2020 . LTG Duration 8 weeks Assessment Summary Assessment Pt appears to have a L anteriorly rotated innominate (L leg long, L ASIS low), corrected with self manual mob exercise. He had discomfort in R SIJ after DKTC gentle stretch; therefore discontinued exercise. He is very weak in his core but is able to perform a TA contraction. Further core/ pelvic stability needed. Pt doesn't appear to have different leg lengths ( measured from ASIS to medial malleolus is 31-3/8 of inch bilaterally); therefore leg length discrepancy in supine is probably SIJ/pelvis obliquity related. Physical Therapy Plan Frequency and Duration Frequency of Treatment 2x/Week Duration of Treatment 8 weeks Plan of Care Start Date 03/04/20 Plan of Care End Date 05/06/20 Next Visit Focus/Plan Next Note Type Treatment Note Next Visit Plan Cont with ongoing postural assessment, ? possible cork lift in right shoe to help gait, SI belt, progress core/ pelvic stabilization.
--- NOTE | 2020-03-18 14:34 | PT.OTN ---
Current Diagnoses Strain of muscle, fascia and tendon of lower back, subsequent encounter (03/18/20) Arthrodesis status (03/18/20) Physical Therapy Treatment Note PT-OP-A Visit Information Start: 02/17/20 07:20 Freq: Status: Active Protocol: Document 03/18/20 13:47 MB (Rec: 03/18/20 14:28 MB [id number]) Out-Patient Physical Therapy Visit Information Visit Information Visit Type Treatment Note Visit Start Time 13:47 Visit Stop Time 14:30 Total Visit Minutes 43 Visit Number 4 PT-OP-B Current Condition Start: 02/17/20 07:20 Freq: Status: Active Protocol: Document 03/04/20 10:31 MB (Rec: 03/04/20 10:44 MB [id number]) Current Condition History of Current Condition Onset Date 2014 Current Complaints Right adductor, SI and foot pain. History of Current Condition Pt underwent spine surgery October 2019 and states that it was a fusion. It was supposed to help with right leg pain but has really not done so. Pt reports 5/10 right adductor area pain, 2/10 right SI pain, 3/10 right foot pain. He has a history of B foot neuropathy. They think it is from his back. He is pre- diabetic. He reports neuropathy for 3 years. He has restless leg syndrome. He has had it for five years. Back pain started around that time. Pt states that he feels that his hips are waited when he stands up and that he cannot stand up very long. He has been using SBQC in his right hand. He is sleeping pretty well. He sleeps on his right side or belly. He uses pillow between knees when on side. He reports numbness and tingling in the feet and that he feels nerve issues in the right leg. Sometimes the neuropathy keeps him from sleeping but he is sleeping up to 6-7 hours a night. Pt states that he was very anemic and falling down some after GI bleed in February. He was admitted and had a colonoscopy and endoscopy and is awaiting results this Monday. He is taking an iron supplement. He is regular bowel movements and does not notice occult blood in stool. He has not had any recent falls. He reports his last fall was in February before he went to hospital the last time . Prior Treatments and Tests Lumbar spinal fusion 10/2019 No PT in past Treatment Goals Patient/Caregiver Goals To get the strength back in his leg and be able to get up off the ground such as with gardening. He would like to work in arm strength as well to help with sit and stands. PT-OP-C Subjective Start: 02/17/20 07:20 Freq: Status: Active Protocol: Document 03/18/20 13:47 MB (Rec: 03/18/20 14:28 MB [id number]) OP-PT Subjective Patient Comments Patient Comments Pt states that he might feel a little better. PT-OP-G Mobility & Gait Start: 03/04/20 13:29 Freq: Status: Active Protocol: Document 03/04/20 10:31 MB (Rec: 03/04/20 13:47 MB [id number]) OP Gait Assessment Gait Gait Assistance Required: Independent Distance (Feet) 65 Assistive Devices Assistive Device Small Based Quad Cane Orthotic/Prosthetic Devices or Brace: No Gait Deviations General Gait Pattern Antalgic,Ataxic,Decreased Stride Length,Decreased Feet Clearance,Flexed Trunk,Lateral Trunk Lean Factors Limiting Gait Function Factors Limiting Gait Function Decreased Strength,Pain,Poor Balance Comments Gait Comments Pt arrives with cane in right hand. PT educates pt to walk with cane in left hand in order to unweight right LLE. Pt lowers cane 1 and his gait is mildly better. PT-OP-J Posture/Palpation/Skin Start: 02/17/20 07:20 Freq: Status: Active Protocol: Document 03/04/20 10:31 MB (Rec: 03/04/20 13:47 MB [id number]) Posture Evaluation Comments Posture Comments Standing posture: B shoulder elevation, greater on the left with anterior positioning of left shoulder, Dowager's hump, decreased thoracic kyphosis, right iliac crest higer than the left, pt stands with heels close and increased Peter angle on the left, anterior tilt pelvis and increased lower lumbar lordosis. Pt reports old TIA or stroke that might have affected his right side but he is not clear about the symptoms. Pt with post-surgical scars that are healing over central spine T12 -L5 and to the left of his lumbar spine. Deferred repeated lumbar flexion and extension d/t history of spinal fusion, similarly deferred Slump s/p fusion and known LE symptoms from spine pre-op. PT-OP-M Strength Start: 02/17/20 07:20 Freq: Status: Active Protocol: Document 03/04/20 10:31 MB (Rec: 03/04/20 13:47 MB [id number]) Hip Strength Hip Manual Muscle Testing Left Flexion (L2) 4 Good Abduction 3+ Fair+ Adduction 5 Normal Comments Supine Right Flexion (L2) 3+ Fair+ Abduction 3 Fair Adduction 3+ Fair+ Comments Pt supine Knee Strength Knee Manual Muscle Testing Left Flexion (S2) 4 Good Extension (L3) 5 Normal Comments Supine Right Flexion (S2) 4 Good Extension (L3) 4 Good Comments Supine Ankle/Foot Strength Ankle and Foot Manual Muscle Testing Left Dorsiflexion (L4) 4 Good Comments Great toe extension 3/5 Right Dorsiflexion (L4) 4 Good Comments Great toe extension 3-/5 PT-OP-Q Treatments Start: 02/17/20 07:20 Freq: Status: Active Protocol: Document 03/18/20 13:47 MB (Rec: 03/18/20 14:28 MB [id number]) Cardio Equipment Bicycle (Upright) Duration (Minutes) 10 Resistance 9 Therapeutic Exercises Supine Exercises Abdominal drawing in and core progression Comments Abdominal drawing in, lumbar rotation, mini march, HS Manual Therapy Treatment Soft Tissue Mobilization LB and sacrum Comments STM B iliopsoas with pt in hook lying, much tighter on the left PT-OP-T Assessment and Plan Start: 02/17/20 07:20 Freq: Status: Active Protocol: Document 03/18/20 13:47 MB (Rec: 03/18/20 14:28 MB [id number]) Physical Therapy Assessment Rehab Potential Rehabilitation Potential Fair Evaluation Complexity Number of Personal Factors/Comorbidities 1-2 Number of Body Systems Impaired 1-2 Clinical Presentation at Evaluation Evolving Impairments Impairments Activity Tolerance,Balance, Gait,Pain,Posture,ROM,Soft Tissue Mobility,Strength Other Impairments Pt reports history of B peripheral neuropathy, ongoing LE symptoms after surgery, recent fusion Goals 5 [employer] Goal (LTG) Pt will perform progressive HEP with I including pelvic realignment, postural, flexibility, strengthening and balance exercises to improve pain and function by 05/06/2020. LTG Duration 8 weeks 4 Director [employer]ulatory [employer] Goal (LTG) Pt will present with B hip flexion, abduction, adduction MMT to at least 4/5 by 2019 to improve functional transfers and gait. LTG Duration 8 weeks 3 Director [employer]ulatory [employer] Goal (LTG) Pt will gait train at least 1000 feet in 6 minutes with LRAD if needed to improve community ambulation by 2019. LTG Duration 8 weeks 2 Alf Goal (LTG) Pt will report a 50% improvement in right leg pain to improve functional transfers and gait by 05/06/2020 . LTG Duration 8 weeks 1 Alf Goal (LTG) Pt will present with an improved Oswestry LBP score to reflect no more than 20% impairment to reflect less pain with function by 05/06/2020 . LTG Duration 8 weeks Assessment Summary Assessment Progressed core strengthening in hook lying today. Extensive time educating pt and pt practicing this today d/t low back and SI tightness and pt tightening up LEs as well. Pt has difficulty LB from leg movement. Physical Therapy Plan Frequency and Duration Frequency of Treatment 2x/Week Duration of Treatment 8 weeks Plan of Care Start Date 03/04/20 Plan of Care End Date 05/06/20 Therapeutic Interventions Therapeutic Interventions Aquatic Therapy,Balance Training,Canalithic Repositioning,Gait Training, Home Exercise Program,Manual Therapy,Neuromuscular Re- education,Patient/Caregiver Education,Self-Care/Home Management,Sensory Integration ,Soft Tissue Mobilization, Taping,Therapeutic Activities, Therapeutic Exercises Modalities Cold Pack/Ice Massage,Electric Stimulation,Hot Packs, Ultrasound Next Visit Focus/Plan Next Note Type Treatment Note Next Visit Plan Con't strengthening progression, review core strengthening and progress hip strengthening
--- NOTE | 2020-03-20 14:54 | PT.OTN ---
Current Diagnoses Strain of muscle, fascia and tendon of lower back, subsequent encounter (03/20/20) Arthrodesis status (03/20/20) Physical Therapy Treatment Note PT-OP-A Visit Information Start: 02/17/20 07:20 Freq: Status: Active Protocol: Document 03/20/20 12:49 LRN (Rec: 03/20/20 13:35 LRN [id number]) Out-Patient Physical Therapy Visit Information Visit Information Visit Type Treatment Note Visit Start Time 12:49 Visit Stop Time 13:31 Total Visit Minutes 42 Visit Number 5 Evaluation Information Evaluation Date 03/04/20 Precautions Precautions Fall risk PT-OP-B Current Condition Start: 02/17/20 07:20 Freq: Status: Active Protocol: Document 03/04/20 10:31 MB (Rec: 03/04/20 10:44 MB [id number]) Current Condition History of Current Condition Onset Date 2014 Current Complaints Right adductor, SI and foot pain. History of Current Condition Pt underwent spine surgery October 2019 and states that it was a fusion. It was supposed to help with right leg pain but has really not done so. Pt reports 5/10 right adductor area pain, 2/10 right SI pain, 3/10 right foot pain. He has a history of B foot neuropathy. They think it is from his back. He is pre- diabetic. He reports neuropathy for 3 years. He has restless leg syndrome. He has had it for five years. Back pain started around that time. Pt states that he feels that his hips are waited when he stands up and that he cannot stand up very long. He has been using SBQC in his right hand. He is sleeping pretty well. He sleeps on his right side or belly. He uses pillow between knees when on side. He reports numbness and tingling in the feet and that he feels nerve issues in the right leg. Sometimes the neuropathy keeps him from sleeping but he is sleeping up to 6-7 hours a night. Pt states that he was very anemic and falling down some after GI bleed in February. He was admitted and had a colonoscopy and endoscopy and is awaiting results this Monday. He is taking an iron supplement. He is regular bowel movements and does not notice occult blood in stool. He has not had any recent falls. He reports his last fall was in February before he went to hospital the last time . Prior Treatments and Tests Lumbar spinal fusion 10/2019 No PT in past Treatment Goals Patient/Caregiver Goals To get the strength back in his leg and be able to get up off the ground such as with gardening. He would like to work in arm strength as well to help with sit and stands. PT-OP-C Subjective Start: 02/17/20 07:20 Freq: Status: Active Protocol: Document 03/20/20 12:49 LRN (Rec: 03/20/20 13:35 LRN [id number]) OP-PT Subjective Patient Comments Patient Comments States he feels a little better. Able to walk longer and do more gardening. Feels like he has more energy. Has weakness in his legs and arms. No pain to start. PT-OP-G Mobility & Gait Start: 03/04/20 13:29 Freq: Status: Active Protocol: Document 03/04/20 10:31 MB (Rec: 03/04/20 13:47 MB [id number]) OP Gait Assessment Gait Gait Assistance Required: Independent Distance (Feet) 65 Assistive Devices Assistive Device Small Based Quad Cane Orthotic/Prosthetic Devices or Brace: No Gait Deviations General Gait Pattern Antalgic,Ataxic,Decreased Stride Length,Decreased Feet Clearance,Flexed Trunk,Lateral Trunk Lean Factors Limiting Gait Function Factors Limiting Gait Function Decreased Strength,Pain,Poor Balance Comments Gait Comments Pt arrives with cane in right hand. PT educates pt to walk with cane in left hand in order to unweight right LLE. Pt lowers cane 1 and his gait is mildly better. PT-OP-J Posture/Palpation/Skin Start: 02/17/20 07:20 Freq: Status: Active Protocol: Document 03/04/20 10:31 MB (Rec: 03/04/20 13:47 MB [id number]) Posture Evaluation Comments Posture Comments Standing posture: B shoulder elevation, greater on the left with anterior positioning of left shoulder, Dowager's hump, decreased thoracic kyphosis, right iliac crest higer than the left, pt stands with heels close and increased Peter angle on the left, anterior tilt pelvis and increased lower lumbar lordosis. Pt reports old TIA or stroke that might have affected his right side but he is not clear about the symptoms. Pt with post-surgical scars that are healing over central spine T12 -L5 and to the left of his lumbar spine. Deferred repeated lumbar flexion and extension d/t history of spinal fusion, similarly deferred Slump s/p fusion and known LE symptoms from spine pre-op. PT-OP-M Strength Start: 02/17/20 07:20 Freq: Status: Active Protocol: Document 03/04/20 10:31 MB (Rec: 03/04/20 13:47 MB [id number]) Hip Strength Hip Manual Muscle Testing Left Flexion (L2) 4 Good Abduction 3+ Fair+ Adduction 5 Normal Comments Supine Right Flexion (L2) 3+ Fair+ Abduction 3 Fair Adduction 3+ Fair+ Comments Pt supine Knee Strength Knee Manual Muscle Testing Left Flexion (S2) 4 Good Extension (L3) 5 Normal Comments Supine Right Flexion (S2) 4 Good Extension (L3) 4 Good Comments Supine Ankle/Foot Strength Ankle and Foot Manual Muscle Testing Left Dorsiflexion (L4) 4 Good Comments Great toe extension 3/5 Right Dorsiflexion (L4) 4 Good Comments Great toe extension 3-/5 PT-OP-Q Treatments Start: 02/17/20 07:20 Freq: Status: Active Protocol: Document 03/20/20 12:49 LRN (Rec: 03/20/20 13:35 LRN [id number]) Therapeutic Exercises Supine Exercises Chest breathing Supine Exercise Name Chest Breathing w/phy cuing given to chest Resistance manual resistance Comments Minimal movement of chest & sporadically by end of sesion Abdominal drawing in and core progression Supine Exercise Name Abdominal drawing in, lumbar rotation, mini march, HS Comments Much phys & v cuing needed to perform ex DKTC Supine Exercise Name Gentle DKTC Reps/Minutes 10 hold x 3 Bridging Supine Exercise Name Bridging after pelvic alignment ex Reps/Minutes 10x 2 Sitting Exercises Chest Breathing Sitting Exercise Name Chest breathing training Reps/Minutes 6' Comments Visual, physical and v. cuing needed to get movement at chest w/breathing Self-Care/Home Management Treatment Education Patient Education Home Exercise Program Activities Self-Care/Home Management Activities Issued & reviewed HEP: DKTC stretch and Bridging. PT-OP-T Assessment and Plan Start: 02/17/20 07:20 Freq: Status: Active Protocol: Document 03/20/20 12:49 LRN (Rec: 03/20/20 13:35 LRN [id number]) Physical Therapy Assessment Goals 5 [facility] Goal (LTG) Pt will perform progressive HEP with I including pelvic realignment, postural, flexibility, strengthening and balance exercises to improve pain and function by 05/06/2020. LTG Duration 8 weeks 4 [facility] Goal (LTG) Pt will present with B hip flexion, abduction, adduction MMT to at least 4/5 by 2019 to improve functional transfers and gait. LTG Duration 8 weeks 3 [facility] Goal (LTG) Pt will gait train at least 1000 feet in 6 minutes with LRAD if needed to improve community ambulation by 2019. LTG Duration 8 weeks 2 [employer]ocational Technical Education Director Goal (LTG) Pt will report a 50% improvement in right leg pain to improve functional transfers and gait by 05/06/2020 . LTG Duration 8 weeks 1 [employer]ocational [employer] Education Director Goal (LTG) Pt will present with an improved Oswestry LBP score to reflect no more than 20% impairment to reflect less pain with function by 05/06/2020 . LTG Duration 8 weeks Assessment Summary Assessment Pt pelvis in alignment; therefore no JMT needed. Pt not able to maintain core stability due to inability to maintain TrA contraction while breathing due to poor ability to chest breathe. Pt was able to perform in sitting, but not able to perform in supine. He feels it is difficult to breathe in supine with mask on. No c/o pain with DKTC or bridges. Physical Therapy Plan Frequency and Duration Frequency of Treatment 2x/Week Duration of Treatment 8 weeks Plan of Care Start Date 03/04/20 Plan of Care End Date 05/06/20 Next Visit Focus/Plan Next Note Type Treatment Note Next Visit Plan Review issued HEP (DKTC stretch and bridges), continue to work on breathing coordination so pt can maintain lower TA contraction with shallow breathing.Con't strengthening progression, review core strengthening and progress hip strengthening
--- NOTE | 2020-03-27 13:20 | PT-OP ANOTE ---
Waiting for authorization referral after recent hospitalization.
--- NOTE | 2020-04-01 09:40 | PT.OTN ---
Current Diagnoses Strain of muscle, fascia and tendon of lower back, subsequent encounter (04/01/20) Arthrodesis status (04/01/20) Physical Therapy Treatment Note PT-OP-A Visit Information Start: 02/17/20 07:20 Freq: Status: Active Protocol: Document 04/01/20 09:02 MB (Rec: 04/01/20 09:40 MB [id number]) Out-Patient Physical Therapy Visit Information Visit Information Visit Type Treatment Note Visit Start Time 09:02 Visit Stop Time 09:42 Total Visit Minutes 40 Visit Number 6 PT-OP-B Current Condition Start: 02/17/20 07:20 Freq: Status: Active Protocol: Document 03/04/20 10:31 MB (Rec: 03/04/20 10:44 MB [id number]) Current Condition History of Current Condition Onset Date 2014 Current Complaints Right adductor, SI and foot pain. History of Current Condition Pt underwent spine surgery October 2019 and states that it was a fusion. It was supposed to help with right leg pain but has really not done so. Pt reports 5/10 right adductor area pain, 2/10 right SI pain, 3/10 right foot pain. He has a history of B foot neuropathy. They think it is from his back. He is pre- diabetic. He reports neuropathy for 3 years. He has restless leg syndrome. He has had it for five years. Back pain started around that time. Pt states that he feels that his hips are waited when he stands up and that he cannot stand up very long. He has been using SBQC in his right hand. He is sleeping pretty well. He sleeps on his right side or belly. He uses pillow between knees when on side. He reports numbness and tingling in the feet and that he feels nerve issues in the right leg. Sometimes the neuropathy keeps him from sleeping but he is sleeping up to 6-7 hours a night. Pt states that he was very anemic and falling down some after GI bleed in February. He was admitted and had a colonoscopy and endoscopy and is awaiting results this Monday. He is taking an iron supplement. He is regular bowel movements and does not notice occult blood in stool. He has not had any recent falls. He reports his last fall was in February before he went to hospital the last time . Prior Treatments and Tests Lumbar spinal fusion 10/2019 No PT in past Treatment Goals Patient/Caregiver Goals To get the strength back in his leg and be able to get up off the ground such as with gardening. He would like to work in arm strength as well to help with sit and stands. PT-OP-C Subjective Start: 02/17/20 07:20 Freq: Status: Active Protocol: Document 04/01/20 09:02 MB (Rec: 04/01/20 09:40 MB [id number]) OP-PT Subjective Patient Comments Patient Comments Pt states that he is feeling a little bit better. He is having a hard time trying to get up to standing when his left leg is in front to put weight on. PT-OP-G Mobility & Gait Start: 03/04/20 13:29 Freq: Status: Active Protocol: Document 03/04/20 10:31 MB (Rec: 03/04/20 13:47 MB [id number]) OP Gait Assessment Gait Gait Assistance Required: Independent Distance (Feet) 65 Assistive Devices Assistive Device Small Based Quad Cane Orthotic/Prosthetic Devices or Brace: No Gait Deviations General Gait Pattern Antalgic,Ataxic,Decreased Stride Length,Decreased Feet Clearance,Flexed Trunk,Lateral Trunk Lean Factors Limiting Gait Function Factors Limiting Gait Function Decreased Strength,Pain,Poor Balance Comments Gait Comments Pt arrives with cane in right hand. PT educates pt to walk with cane in left hand in order to unweight right LLE. Pt lowers cane 1 and his gait is mildly better. PT-OP-J Posture/Palpation/Skin Start: 02/17/20 07:20 Freq: Status: Active Protocol: Document 03/04/20 10:31 MB (Rec: 03/04/20 13:47 MB [id number]) Posture Evaluation Comments Posture Comments Standing posture: B shoulder elevation, greater on the left with anterior positioning of left shoulder, Dowager's hump, decreased thoracic kyphosis, right iliac crest higer than the left, pt stands with heels close and increased Peter angle on the left, anterior tilt pelvis and increased lower lumbar lordosis. Pt reports old TIA or stroke that might have affected his right side but he is not clear about the symptoms. Pt with post-surgical scars that are healing over central spine T12 -L5 and to the left of his lumbar spine. Deferred repeated lumbar flexion and extension d/t history of spinal fusion, similarly deferred Slump s/p fusion and known LE symptoms from spine pre-op. PT-OP-M Strength Start: 02/17/20 07:20 Freq: Status: Active Protocol: Document 03/04/20 10:31 MB (Rec: 03/04/20 13:47 MB [id number]) Hip Strength Hip Manual Muscle Testing Left Flexion (L2) 4 Good Abduction 3+ Fair+ Adduction 5 Normal Comments Supine Right Flexion (L2) 3+ Fair+ Abduction 3 Fair Adduction 3+ Fair+ Comments Pt supine Knee Strength Knee Manual Muscle Testing Left Flexion (S2) 4 Good Extension (L3) 5 Normal Comments Supine Right Flexion (S2) 4 Good Extension (L3) 4 Good Comments Supine Ankle/Foot Strength Ankle and Foot Manual Muscle Testing Left Dorsiflexion (L4) 4 Good Comments Great toe extension 3/5 Right Dorsiflexion (L4) 4 Good Comments Great toe extension 3-/5 PT-OP-Q Treatments Start: 02/17/20 07:20 Freq: Status: Active Protocol: Document 04/01/20 09:02 MB (Rec: 04/01/20 09:40 MB [id number]) Cardio Equipment Bicycle (Upright) Duration (Minutes) 10 Resistance 9 Seat Position 0 Therapeutic Exercises Supine Exercises Hip rotator stretch Comments 30 sec B Hip flexor stretch Reps/Minutes 30 sec B Comments Mason stretch, core engaged first Hamstring stretch Comments 30 sec B, hands behind knees, then AP Abdominal drawing in and core progression Supine Exercise Name Abdominal drawing in, pelvic tilt, HS, mini rocks, mini november Comments 5 reps all, cues for core engagement DKTC Comments 3 reps x 10 sec hold PT-OP-T Assessment and Plan Start: 02/17/20 07:20 Freq: Status: Active Protocol: Document 04/01/20 09:02 MB (Rec: 04/01/20 09:40 MB [id number]) Physical Therapy Assessment Rehab Potential Rehabilitation Potential Fair Evaluation Complexity Number of Personal Factors/Comorbidities 1-2 Number of Body Systems Impaired 1-2 Clinical Presentation at Evaluation Evolving Impairments Impairments Activity Tolerance,Balance, Gait,Pain,Posture,ROM,Soft Tissue Mobility,Strength Other Impairments Pt reports history of B peripheral neuropathy, ongoing LE symptoms after surgery, recent fusion Goals 5 Animal Shelter Supervisor Goal (LTG) Pt will perform progressive HEP with I including pelvic realignment, postural, flexibility, strengthening and balance exercises to improve pain and function by 05/06/2020. LTG Duration 8 weeks 4 Nursing Home Goal (LTG) Pt will present with B hip flexion, abduction, adduction MMT to at least 4/5 by 2019 to improve functional transfers and gait. LTG Duration 8 weeks 3 Animal Shelter Supervisor Goal (LTG) Pt will gait train at least 1000 feet in 6 minutes with LRAD if needed to improve community ambulation by 2019. LTG Duration 8 weeks 2 Nursing Home Goal (LTG) Pt will report a 50% improvement in right leg pain to improve functional transfers and gait by 05/06/2020 . LTG Duration 8 weeks 1 Animal Shelter Supervisor Goal (LTG) Pt will present with an improved Oswestry LBP score to reflect no more than 20% impairment to reflect less pain with function by 05/06/2020 . LTG Duration 8 weeks Assessment Summary Assessment Pt is able to perform abdominal drawing in while stomach breathing and so this PT is not concerned about thoracic breathing. Progressed flexibility exercises today. Pt is eager to start strengthening and ed pt that flexibility of muscles and alignment are important before strengthening. D/cd band hip abduction in sitting Physical Therapy Plan Frequency and Duration Frequency of Treatment 2x/Week Duration of Treatment 8 weeks Plan of Care Start Date 03/04/20 Plan of Care End Date 05/06/20 Therapeutic Interventions Therapeutic Interventions Aquatic Therapy,Balance Training,Canalithic Repositioning,Gait Training, Home Exercise Program,Manual Therapy,Neuromuscular Re- education,Patient/Caregiver Education,Self-Care/Home Management,Sensory Integration ,Soft Tissue Mobilization, Taping,Therapeutic Activities, Therapeutic Exercises Modalities Cold Pack/Ice Massage,Electric Stimulation,Hot Packs, Ultrasound Next Visit Focus/Plan Next Note Type Treatment Note Next Visit Plan Review hamstring, Mason and hip rotator stretches. Consider sitting QL stretch. Progress hip abductor strengthening in hook lying with core; standing mini march against wall, hip abduction and extension strengthening in standing
--- NOTE | 2020-04-07 11:12 | PT.OTN ---
Current Diagnoses Strain of muscle, fascia and tendon of lower back, subsequent encounter (04/07/20) Arthrodesis status (04/07/20) Physical Therapy Treatment Note PT-OP-A Visit Information Start: 02/17/20 07:20 Freq: Status: Active Protocol: Document 04/07/20 10:31 MB (Rec: 04/07/20 10:40 MB [id number]) Out-Patient Physical Therapy Visit Information Visit Information Visit Type Treatment Note Visit Start Time 10:31 Visit Stop Time 11:11 Total Visit Minutes 40 PT-OP-B Current Condition Start: 02/17/20 07:20 Freq: Status: Active Protocol: Document 03/04/20 10:31 MB (Rec: 03/04/20 10:44 MB [id number]) Current Condition History of Current Condition Onset Date 2014 Current Complaints Right adductor, SI and foot pain. History of Current Condition Pt underwent spine surgery October 2019 and states that it was a fusion. It was supposed to help with right leg pain but has really not done so. Pt reports 5/10 right adductor area pain, 2/10 right SI pain, 3/10 right foot pain. He has a history of B foot neuropathy. They think it is from his back. He is pre- diabetic. He reports neuropathy for 3 years. He has restless leg syndrome. He has had it for five years. Back pain started around that time. Pt states that he feels that his hips are waited when he stands up and that he cannot stand up very long. He has been using SBQC in his right hand. He is sleeping pretty well. He sleeps on his right side or belly. He uses pillow between knees when on side. He reports numbness and tingling in the feet and that he feels nerve issues in the right leg. Sometimes the neuropathy keeps him from sleeping but he is sleeping up to 6-7 hours a night. Pt states that he was very anemic and falling down some after GI bleed in February. He was admitted and had a colonoscopy and endoscopy and is awaiting results this Monday. He is taking an iron supplement. He is regular bowel movements and does not notice occult blood in stool. He has not had any recent falls. He reports his last fall was in February before he went to hospital the last time . Prior Treatments and Tests Lumbar spinal fusion 10/2019 No PT in past Treatment Goals Patient/Caregiver Goals To get the strength back in his leg and be able to get up off the ground such as with gardening. He would like to work in arm strength as well to help with sit and stands. PT-OP-C Subjective Start: 02/17/20 07:20 Freq: Status: Active Protocol: Document 04/07/20 10:31 MB (Rec: 04/07/20 10:40 MB [id number]) OP-PT Subjective Patient Comments Patient Comments Pt states that his back is sore after too much gardening. He did not perform Mason stretch as much as he did the hamstring stretch. PT-OP-G Mobility & Gait Start: 03/04/20 13:29 Freq: Status: Active Protocol: Document 03/04/20 10:31 MB (Rec: 03/04/20 13:47 MB [id number]) OP Gait Assessment Gait Gait Assistance Required: Independent Distance (Feet) 65 Assistive Devices Assistive Device Small Based Quad Cane Orthotic/Prosthetic Devices or Brace: No Gait Deviations General Gait Pattern Antalgic,Ataxic,Decreased Stride Length,Decreased Feet Clearance,Flexed Trunk,Lateral Trunk Lean Factors Limiting Gait Function Factors Limiting Gait Function Decreased Strength,Pain,Poor Balance Comments Gait Comments Pt arrives with cane in right hand. PT educates pt to walk with cane in left hand in order to unweight right LLE. Pt lowers cane 1 and his gait is mildly better. PT-OP-J Posture/Palpation/Skin Start: 02/17/20 07:20 Freq: Status: Active Protocol: Document 03/04/20 10:31 MB (Rec: 03/04/20 13:47 MB [id number]) Posture Evaluation Comments Posture Comments Standing posture: B shoulder elevation, greater on the left with anterior positioning of left shoulder, Dowager's hump, decreased thoracic kyphosis, right iliac crest higer than the left, pt stands with heels close and increased Peter angle on the left, anterior tilt pelvis and increased lower lumbar lordosis. Pt reports old TIA or stroke that might have affected his right side but he is not clear about the symptoms. Pt with post-surgical scars that are healing over central spine T12 -L5 and to the left of his lumbar spine. Deferred repeated lumbar flexion and extension d/t history of spinal fusion, similarly deferred Slump s/p fusion and known LE symptoms from spine pre-op. PT-OP-M Strength Start: 02/17/20 07:20 Freq: Status: Active Protocol: Document 03/04/20 10:31 MB (Rec: 03/04/20 13:47 MB [id number]) Hip Strength Hip Manual Muscle Testing Left Flexion (L2) 4 Good Abduction 3+ Fair+ Adduction 5 Normal Comments Supine Right Flexion (L2) 3+ Fair+ Abduction 3 Fair Adduction 3+ Fair+ Comments Pt supine Knee Strength Knee Manual Muscle Testing Left Flexion (S2) 4 Good Extension (L3) 5 Normal Comments Supine Right Flexion (S2) 4 Good Extension (L3) 4 Good Comments Supine Ankle/Foot Strength Ankle and Foot Manual Muscle Testing Left Dorsiflexion (L4) 4 Good Comments Great toe extension 3/5 Right Dorsiflexion (L4) 4 Good Comments Great toe extension 3-/5 PT-OP-Q Treatments Start: 02/17/20 07:20 Freq: Status: Active Protocol: Document 04/07/20 10:31 MB (Rec: 04/07/20 10:41 MB [id number]) Cardio Equipment Bicycle (Upright) Duration (Minutes) 10 Resistance 8 Seat Position 2 Therapeutic Exercises Supine Exercises Hip flexor stretch Side bilateral Comments Pelvic tilt and abdominal drawing in Hamstring stretch Side bilateral Comments 30 sec hold, APs Sitting Exercises Sitting HS up yepez with hip ER for hip flexor strengthening and hip mobility Side bilateral Comments 5 reps Hamstring stretch Side bilateral Comments With ankle pump and/or toes up Hip rotator stretch Side bilateral Comments Pt unable to perform B, add heel slides QL stretch sitting Side bilateral Comments 30 sec hold, limited by shoulder restrictions PT-OP-T Assessment and Plan Start: 02/17/20 07:20 Freq: Status: Active Protocol: Document 04/07/20 10:31 MB (Rec: 04/07/20 10:40 MB [id number]) Physical Therapy Assessment Rehab Potential Rehabilitation Potential Fair Evaluation Complexity Number of Personal Factors/Comorbidities 1-2 Number of Body Systems Impaired 1-2 Clinical Presentation at Evaluation Evolving Impairments Impairments Activity Tolerance,Balance, Gait,Pain,Posture,ROM,Soft Tissue Mobility,Strength Other Impairments Pt reports history of B peripheral neuropathy, ongoing LE symptoms after surgery, recent fusion Goals 5 Correction Goal (LTG) Pt will perform progressive HEP with I including pelvic realignment, postural, flexibility, strengthening and balance exercises to improve pain and function by 05/06/2020. LTG Duration 8 weeks 4 Electrical Assemblies Supervisor Goal (LTG) Pt will present with B hip flexion, abduction, adduction MMT to at least 4/5 by 2019 to improve functional transfers and gait. LTG Duration 8 weeks 3 Correction Goal (LTG) Pt will gait train at least 1000 feet in 6 minutes with LRAD if needed to improve community ambulation by 2019. LTG Duration 8 weeks 2 Correction Goal (LTG) Pt will report a 50% improvement in right leg pain to improve functional transfers and gait by 05/06/2020 . LTG Duration 8 weeks 1 Correction Goal (LTG) Pt will present with an improved Oswestry LBP score to reflect no more than 20% impairment to reflect less pain with function by 05/06/2020 . LTG Duration 8 weeks Assessment Summary Assessment Progressed flexibility exercises in sitting today to allow better posture for gardening. He cannot tolerate hip rotator stretch in sitting and so added flexion and ER HS to help with range and strength. Con't progression. Physical Therapy Plan Frequency and Duration Frequency of Treatment 2x/Week Duration of Treatment 8 weeks Plan of Care Start Date 03/04/20 Plan of Care End Date 05/06/20 Therapeutic Interventions Therapeutic Interventions Aquatic Therapy,Balance Training,Canalithic Repositioning,Gait Training, Home Exercise Program,Manual Therapy,Neuromuscular Re- education,Patient/Caregiver Education,Self-Care/Home Management,Sensory Integration ,Soft Tissue Mobilization, Taping,Therapeutic Activities, Therapeutic Exercises Modalities Cold Pack/Ice Massage,Electric Stimulation,Hot Packs, Ultrasound Next Visit Focus/Plan Next Note Type Treatment Note Next Visit Plan Progress hip abductor strengthening in hook lying with core; standing mini march against wall, hip abduction and extension strengthening in standing
--- NOTE | 2020-04-09 11:15 | PT.OTN ---
Current Diagnoses Strain of muscle, fascia and tendon of lower back, subsequent encounter (04/09/20) Arthrodesis status (04/09/20) Physical Therapy Treatment Note PT-OP-A Visit Information Start: 02/17/20 07:20 Freq: Status: Active Protocol: Document 04/09/20 10:30 MB (Rec: 04/09/20 11:15 MB [id number]) Out-Patient Physical Therapy Visit Information Visit Information Visit Type Treatment Note Visit Start Time 10:30 Visit Stop Time 11:15 Total Visit Minutes 45 PT-OP-B Current Condition Start: 02/17/20 07:20 Freq: Status: Active Protocol: Document 03/04/20 10:31 MB (Rec: 03/04/20 10:44 MB [id number]) Current Condition History of Current Condition Onset Date 2014 Current Complaints Right adductor, SI and foot pain. History of Current Condition Pt underwent spine surgery October 2019 and states that it was a fusion. It was supposed to help with right leg pain but has really not done so. Pt reports 5/10 right adductor area pain, 2/10 right SI pain, 3/10 right foot pain. He has a history of B foot neuropathy. They think it is from his back. He is pre- diabetic. He reports neuropathy for 3 years. He has restless leg syndrome. He has had it for five years. Back pain started around that time. Pt states that he feels that his hips are waited when he stands up and that he cannot stand up very long. He has been using SBQC in his right hand. He is sleeping pretty well. He sleeps on his right side or belly. He uses pillow between knees when on side. He reports numbness and tingling in the feet and that he feels nerve issues in the right leg. Sometimes the neuropathy keeps him from sleeping but he is sleeping up to 6-7 hours a night. Pt states that he was very anemic and falling down some after GI bleed in February. He was admitted and had a colonoscopy and endoscopy and is awaiting results this Monday. He is taking an iron supplement. He is regular bowel movements and does not notice occult blood in stool. He has not had any recent falls. He reports his last fall was in February before he went to hospital the last time . Prior Treatments and Tests Lumbar spinal fusion 10/2019 No PT in past Treatment Goals Patient/Caregiver Goals To get the strength back in his leg and be able to get up off the ground such as with gardening. He would like to work in arm strength as well to help with sit and stands. PT-OP-C Subjective Start: 02/17/20 07:20 Freq: Status: Active Protocol: Document 04/09/20 10:30 MB (Rec: 04/09/20 11:15 MB [id number]) OP-PT Subjective Patient Comments Patient Comments Pt states that he is sore today. His legs are sore. Doing stairs outside is difficult. PT-OP-G Mobility & Gait Start: 03/04/20 13:29 Freq: Status: Active Protocol: Document 03/04/20 10:31 MB (Rec: 03/04/20 13:47 MB [id number]) OP Gait Assessment Gait Gait Assistance Required: Independent Distance (Feet) 65 Assistive Devices Assistive Device Small Based Quad Cane Orthotic/Prosthetic Devices or Brace: No Gait Deviations General Gait Pattern Antalgic,Ataxic,Decreased Stride Length,Decreased Feet Clearance,Flexed Trunk,Lateral Trunk Lean Factors Limiting Gait Function Factors Limiting Gait Function Decreased Strength,Pain,Poor Balance Comments Gait Comments Pt arrives with cane in right hand. PT educates pt to walk with cane in left hand in order to unweight right LLE. Pt lowers cane 1 and his gait is mildly better. PT-OP-J Posture/Palpation/Skin Start: 02/17/20 07:20 Freq: Status: Active Protocol: Document 03/04/20 10:31 MB (Rec: 03/04/20 13:47 MB [id number]) Posture Evaluation Comments Posture Comments Standing posture: B shoulder elevation, greater on the left with anterior positioning of left shoulder, Dowager's hump, decreased thoracic kyphosis, right iliac crest higer than the left, pt stands with heels close and increased Peter angle on the left, anterior tilt pelvis and increased lower lumbar lordosis. Pt reports old TIA or stroke that might have affected his right side but he is not clear about the symptoms. Pt with post-surgical scars that are healing over central spine T12 -L5 and to the left of his lumbar spine. Deferred repeated lumbar flexion and extension d/t history of spinal fusion, similarly deferred Slump s/p fusion and known LE symptoms from spine pre-op. PT-OP-M Strength Start: 02/17/20 07:20 Freq: Status: Active Protocol: Document 03/04/20 10:31 MB (Rec: 03/04/20 13:47 MB [id number]) Hip Strength Hip Manual Muscle Testing Left Flexion (L2) 4 Good Abduction 3+ Fair+ Adduction 5 Normal Comments Supine Right Flexion (L2) 3+ Fair+ Abduction 3 Fair Adduction 3+ Fair+ Comments Pt supine Knee Strength Knee Manual Muscle Testing Left Flexion (S2) 4 Good Extension (L3) 5 Normal Comments Supine Right Flexion (S2) 4 Good Extension (L3) 4 Good Comments Supine Ankle/Foot Strength Ankle and Foot Manual Muscle Testing Left Dorsiflexion (L4) 4 Good Comments Great toe extension 3/5 Right Dorsiflexion (L4) 4 Good Comments Great toe extension 3-/5 PT-OP-Q Treatments Start: 02/17/20 07:20 Freq: Status: Active Protocol: Document 04/09/20 10:30 MB (Rec: 04/09/20 11:15 MB [id number]) Cardio Equipment Bicycle (Upright) Duration (Minutes) 10 Resistance 9 Seat Position 2 Therapeutic Exercises Supine Exercises DKTC Comments 3 reps x10 sec hold, change to buttocks stretch with knees slightly apart Lumbar rotation Comments 10 reps Sitting Exercises Sitting HS up yepez with hip ER for hip flexor strengthening and hip mobility Side bilateral Comments 5 reps, alternating Standing Exercises Static small lunge to work on hip strength and stretch Comments Pt has smaller stance, 10 reps , cues for form Other Exercises Quadriped hip flexion Comments 5 reps B, more range on the right leg PT-OP-T Assessment and Plan Start: 02/17/20 07:20 Freq: Status: Active Protocol: Document 04/09/20 10:30 MB (Rec: 04/09/20 11:15 MB [id number]) Physical Therapy Assessment Rehab Potential Rehabilitation Potential Fair Evaluation Complexity Number of Personal Factors/Comorbidities 1-2 Number of Body Systems Impaired 1-2 Clinical Presentation at Evaluation Evolving Impairments Impairments Activity Tolerance,Balance, Gait,Pain,Posture,ROM,Soft Tissue Mobility,Strength Other Impairments Pt reports history of B peripheral neuropathy, ongoing LE symptoms after surgery, recent fusion Goals 5 Prison Goal (LTG) Pt will perform progressive HEP with I including pelvic realignment, postural, flexibility, strengthening and balance exercises to improve pain and function by 05/06/2020. LTG Duration 8 weeks 4 Financial Secretary Goal (LTG) Pt will present with B hip flexion, abduction, adduction MMT to at least 4/5 by 2019 to improve functional transfers and gait. LTG Duration 8 weeks 3 Prison Goal (LTG) Pt will gait train at least 1000 feet in 6 minutes with LRAD if needed to improve community ambulation by 2019. LTG Duration 8 weeks 2 Prison Goal (LTG) Pt will report a 50% improvement in right leg pain to improve functional transfers and gait by 05/06/2020 . LTG Duration 8 weeks 1 Financial Secretary Goal (LTG) Pt will present with an improved Oswestry LBP score to reflect no more than 20% impairment to reflect less pain with function by 05/06/2020 . LTG Duration 8 weeks Assessment Summary Assessment Progressed floor mobility and exercises today. Con't to progress as tolerated. Physical Therapy Plan Frequency and Duration Frequency of Treatment 2x/Week Duration of Treatment 8 weeks Plan of Care Start Date 03/04/20 Plan of Care End Date 05/06/20 Therapeutic Interventions Therapeutic Interventions Aquatic Therapy,Balance Training,Canalithic Repositioning,Gait Training, Home Exercise Program,Manual Therapy,Neuromuscular Re- education,Patient/Caregiver Education,Self-Care/Home Management,Sensory Integration ,Soft Tissue Mobilization, Taping,Therapeutic Activities, Therapeutic Exercises Modalities Cold Pack/Ice Massage,Electric Stimulation,Hot Packs, Ultrasound Next Visit Focus/Plan Next Note Type Treatment Note Next Visit Plan Progress hip abductor strengthening in hook lying with core; standing mini march against wall, hip abduction and extension strengthening in standing
--- NOTE | 2020-04-14 11:17 | PT.OTN ---
Current Diagnoses Strain of muscle, fascia and tendon of lower back, subsequent encounter (04/14/20) Arthrodesis status (04/14/20) Physical Therapy Treatment Note PT-OP-A Visit Information Start: 02/17/20 07:20 Freq: Status: Active Protocol: Document 04/14/20 10:30 MB (Rec: 04/14/20 10:42 MB [id number]) Out-Patient Physical Therapy Visit Information Visit Information Visit Type Treatment Note Visit Start Time 10:30 Visit Stop Time 11:15 Total Visit Minutes 45 PT-OP-B Current Condition Start: 02/17/20 07:20 Freq: Status: Active Protocol: Document 03/04/20 10:31 MB (Rec: 03/04/20 10:44 MB [id number]) Current Condition History of Current Condition Onset Date 2014 Current Complaints Right adductor, SI and foot pain. History of Current Condition Pt underwent spine surgery October 2019 and states that it was a fusion. It was supposed to help with right leg pain but has really not done so. Pt reports 5/10 right adductor area pain, 2/10 right SI pain, 3/10 right foot pain. He has a history of B foot neuropathy. They think it is from his back. He is pre- diabetic. He reports neuropathy for 3 years. He has restless leg syndrome. He has had it for five years. Back pain started around that time. Pt states that he feels that his hips are waited when he stands up and that he cannot stand up very long. He has been using SBQC in his right hand. He is sleeping pretty well. He sleeps on his right side or belly. He uses pillow between knees when on side. He reports numbness and tingling in the feet and that he feels nerve issues in the right leg. Sometimes the neuropathy keeps him from sleeping but he is sleeping up to 6-7 hours a night. Pt states that he was very anemic and falling down some after GI bleed in February. He was admitted and had a colonoscopy and endoscopy and is awaiting results this Monday. He is taking an iron supplement. He is regular bowel movements and does not notice occult blood in stool. He has not had any recent falls. He reports his last fall was in February before he went to hospital the last time . Prior Treatments and Tests Lumbar spinal fusion 10/2019 No PT in past Treatment Goals Patient/Caregiver Goals To get the strength back in his leg and be able to get up off the ground such as with gardening. He would like to work in arm strength as well to help with sit and stands. PT-OP-C Subjective Start: 02/17/20 07:20 Freq: Status: Active Protocol: Document 04/14/20 10:30 MB (Rec: 04/14/20 10:42 MB [id number]) OP-PT Subjective Patient Comments Patient Comments Pt reports that he has not done any gardening over the last couple of days because the left side of his back feels like it is pulling. He rates pain as 3-4/10. PT-OP-G Mobility & Gait Start: 03/04/20 13:29 Freq: Status: Active Protocol: Document 03/04/20 10:31 MB (Rec: 03/04/20 13:47 MB [id number]) OP Gait Assessment Gait Gait Assistance Required: Independent Distance (Feet) 65 Assistive Devices Assistive Device Small Based Quad Cane Orthotic/Prosthetic Devices or Brace: No Gait Deviations General Gait Pattern Antalgic,Ataxic,Decreased Stride Length,Decreased Feet Clearance,Flexed Trunk,Lateral Trunk Lean Factors Limiting Gait Function Factors Limiting Gait Function Decreased Strength,Pain,Poor Balance Comments Gait Comments Pt arrives with cane in right hand. PT educates pt to walk with cane in left hand in order to unweight right LLE. Pt lowers cane 1 and his gait is mildly better. PT-OP-J Posture/Palpation/Skin Start: 02/17/20 07:20 Freq: Status: Active Protocol: Document 03/04/20 10:31 MB (Rec: 03/04/20 13:47 MB [id number]) Posture Evaluation Comments Posture Comments Standing posture: B shoulder elevation, greater on the left with anterior positioning of left shoulder, Dowager's hump, decreased thoracic kyphosis, right iliac crest higer than the left, pt stands with heels close and increased Peter angle on the left, anterior tilt pelvis and increased lower lumbar lordosis. Pt reports old TIA or stroke that might have affected his right side but he is not clear about the symptoms. Pt with post-surgical scars that are healing over central spine T12 -L5 and to the left of his lumbar spine. Deferred repeated lumbar flexion and extension d/t history of spinal fusion, similarly deferred Slump s/p fusion and known LE symptoms from spine pre-op. PT-OP-M Strength Start: 02/17/20 07:20 Freq: Status: Active Protocol: Document 03/04/20 10:31 MB (Rec: 03/04/20 13:47 MB [id number]) Hip Strength Hip Manual Muscle Testing Left Flexion (L2) 4 Good Abduction 3+ Fair+ Adduction 5 Normal Comments Supine Right Flexion (L2) 3+ Fair+ Abduction 3 Fair Adduction 3+ Fair+ Comments Pt supine Knee Strength Knee Manual Muscle Testing Left Flexion (S2) 4 Good Extension (L3) 5 Normal Comments Supine Right Flexion (S2) 4 Good Extension (L3) 4 Good Comments Supine Ankle/Foot Strength Ankle and Foot Manual Muscle Testing Left Dorsiflexion (L4) 4 Good Comments Great toe extension 3/5 Right Dorsiflexion (L4) 4 Good Comments Great toe extension 3-/5 PT-OP-Q Treatments Start: 02/17/20 07:20 Freq: Status: Active Protocol: Document 04/14/20 10:30 MB (Rec: 04/14/20 10:42 MB [id number]) Cardio Equipment Bicycle (Upright) Duration (Minutes) 10 Resistance 9 Seat Position 2 Manual Therapy Treatment Other Other Manual Treatments Pt prone: STM B thoracolumbar paraspinals and QL, grade II thoracic PA mobs, pt coordinating with thoracic mobility with breathing, scapular mobs, positional release left QL PT-OP-T Assessment and Plan Start: 02/17/20 07:20 Freq: Status: Active Protocol: Document 04/14/20 10:30 MB (Rec: 04/14/20 10:42 MB [id number]) Physical Therapy Assessment Rehab Potential Rehabilitation Potential Fair Evaluation Complexity Number of Personal Factors/Comorbidities 1-2 Number of Body Systems Impaired 1-2 Clinical Presentation at Evaluation Evolving Impairments Impairments Activity Tolerance,Balance, Gait,Pain,Posture,ROM,Soft Tissue Mobility,Strength Other Impairments Pt reports history of B peripheral neuropathy, ongoing LE symptoms after surgery, recent fusion Goals 5 Quality Assistant Goal (LTG) Pt will perform progressive HEP with I including pelvic realignment, postural, flexibility, strengthening and balance exercises to improve pain and function by 05/06/2020. LTG Duration 8 weeks 4 Quality Assistant Goal (LTG) Pt will present with B hip flexion, abduction, adduction MMT to at least 4/5 by 2019 to improve functional transfers and gait. LTG Duration 8 weeks 3 Correction Goal (LTG) Pt will gait train at least 1000 feet in 6 minutes with LRAD if needed to improve community ambulation by 2019. LTG Duration 8 weeks 2 Correction Goal (LTG) Pt will report a 50% improvement in right leg pain to improve functional transfers and gait by 05/06/2020 . LTG Duration 8 weeks 1 Correction Goal (LTG) Pt will present with an improved Oswestry LBP score to reflect no more than 20% impairment to reflect less pain with function by 05/06/2020 . LTG Duration 8 weeks Assessment Summary Assessment Manual work today to assess and treat back musculature tension and to help decrease discomfort. Progress leg strengthening in future treatments, consider mini wall squat. Consider thoracic mobility exercises and tennis ball massage for trigger points. Physical Therapy Plan Frequency and Duration Frequency of Treatment 2x/Week Duration of Treatment 8 weeks Plan of Care Start Date 03/04/20 Plan of Care End Date 05/06/20 Therapeutic Interventions Therapeutic Interventions Aquatic Therapy,Balance Training,Canalithic Repositioning,Gait Training, Home Exercise Program,Manual Therapy,Neuromuscular Re- education,Patient/Caregiver Education,Self-Care/Home Management,Sensory Integration ,Soft Tissue Mobilization, Taping,Therapeutic Activities, Therapeutic Exercises Modalities Cold Pack/Ice Massage,Electric Stimulation,Hot Packs, Ultrasound Next Visit Focus/Plan Next Note Type Treatment Note Next Visit Plan Progress hip abductor strengthening in hook lying with core; standing mini march against wall, hip abduction and extension strengthening in standing
--- NOTE | 2020-04-21 11:17 | PT.OTN ---
Current Diagnoses Strain of muscle, fascia and tendon of lower back, subsequent encounter (04/21/20) Arthrodesis status (04/21/20) Physical Therapy Treatment Note PT-OP-A Visit Information Start: 02/17/20 07:20 Freq: Status: Active Protocol: Document 04/21/20 10:23 MB (Rec: 04/21/20 10:46 MB [id number]) Out-Patient Physical Therapy Visit Information Visit Information Visit Type Progress Note Visit Start Time 10:23 Visit Stop Time 11:08 Total Visit Minutes 45 Visit Number 10 PT-OP-B Current Condition Start: 02/17/20 07:20 Freq: Status: Active Protocol: Document 03/04/20 10:31 MB (Rec: 03/04/20 10:44 MB [id number]) Current Condition History of Current Condition Onset Date 2014 Current Complaints Right adductor, SI and foot pain. History of Current Condition Pt underwent spine surgery October 2019 and states that it was a fusion. It was supposed to help with right leg pain but has really not done so. Pt reports 5/10 right adductor area pain, 2/10 right SI pain, 3/10 right foot pain. He has a history of B foot neuropathy. They think it is from his back. He is pre- diabetic. He reports neuropathy for 3 years. He has restless leg syndrome. He has had it for five years. Back pain started around that time. Pt states that he feels that his hips are waited when he stands up and that he cannot stand up very long. He has been using SBQC in his right hand. He is sleeping pretty well. He sleeps on his right side or belly. He uses pillow between knees when on side. He reports numbness and tingling in the feet and that he feels nerve issues in the right leg. Sometimes the neuropathy keeps him from sleeping but he is sleeping up to 6-7 hours a night. Pt states that he was very anemic and falling down some after GI bleed in February. He was admitted and had a colonoscopy and endoscopy and is awaiting results this Monday. He is taking an iron supplement. He is regular bowel movements and does not notice occult blood in stool. He has not had any recent falls. He reports his last fall was in February before he went to hospital the last time . Prior Treatments and Tests Lumbar spinal fusion 10/2019 No PT in past Treatment Goals Patient/Caregiver Goals To get the strength back in his leg and be able to get up off the ground such as with gardening. He would like to work in arm strength as well to help with sit and stands. PT-OP-C Subjective Start: 02/17/20 07:20 Freq: Status: Active Protocol: Document 04/21/20 10:23 MB (Rec: 04/21/20 10:46 MB [id number]) OP-PT Subjective Patient Comments Patient Comments Pt states that he hurt his left hip when getting up from gardening a week ago. It is like a catch in his left hip. He rested. Walking helps. He has been back in the garden and it was okay. Pt reports that he is doing his exercises . His stamina is better since starting PT. Pt reports a 15% improvement in back pain since starting PT--he localizes this improvement to right LB. His left low back pain is gone . Patient Questionnaires Oswestry Low Back Index Oswestry Score 18 Oswestry Impairment 20 to 39% Impaired (Score 20- 39) PT-OP-G Mobility & Gait Start: 03/04/20 13:29 Freq: Status: Active Protocol: Document 03/04/20 10:31 MB (Rec: 03/04/20 13:47 MB [id number]) OP Gait Assessment Gait Gait Assistance Required: Independent Distance (Feet) 65 Assistive Devices Assistive Device Small Based Quad Cane Orthotic/Prosthetic Devices or Brace: No Gait Deviations General Gait Pattern Antalgic,Ataxic,Decreased Stride Length,Decreased Feet Clearance,Flexed Trunk,Lateral Trunk Lean Factors Limiting Gait Function Factors Limiting Gait Function Decreased Strength,Pain,Poor Balance Comments Gait Comments Pt arrives with cane in right hand. PT educates pt to walk with cane in left hand in order to unweight right LLE. Pt lowers cane 1 and his gait is mildly better. PT-OP-J Posture/Palpation/Skin Start: 02/17/20 07:20 Freq: Status: Active Protocol: Document 03/04/20 10:31 MB (Rec: 03/04/20 13:47 MB [id number]) Posture Evaluation Comments Posture Comments Standing posture: B shoulder elevation, greater on the left with anterior positioning of left shoulder, Dowager's hump, decreased thoracic kyphosis, right iliac crest higer than the left, pt stands with heels close and increased Peter angle on the left, anterior tilt pelvis and increased lower lumbar lordosis. Pt reports old TIA or stroke that might have affected his right side but he is not clear about the symptoms. Pt with post-surgical scars that are healing over central spine T12 -L5 and to the left of his lumbar spine. Deferred repeated lumbar flexion and extension d/t history of spinal fusion, similarly deferred Slump s/p fusion and known LE symptoms from spine pre-op. PT-OP-M Strength Start: 02/17/20 07:20 Freq: Status: Active Protocol: Document 03/04/20 10:31 MB (Rec: 03/04/20 13:47 MB [id number]) Hip Strength Hip Manual Muscle Testing Left Flexion (L2) 4 Good Abduction 3+ Fair+ Adduction 5 Normal Comments Supine Right Flexion (L2) 3+ Fair+ Abduction 3 Fair Adduction 3+ Fair+ Comments Pt supine Knee Strength Knee Manual Muscle Testing Left Flexion (S2) 4 Good Extension (L3) 5 Normal Comments Supine Right Flexion (S2) 4 Good Extension (L3) 4 Good Comments Supine Ankle/Foot Strength Ankle and Foot Manual Muscle Testing Left Dorsiflexion (L4) 4 Good Comments Great toe extension 3/5 Right Dorsiflexion (L4) 4 Good Comments Great toe extension 3-/5 PT-OP-Q Treatments Start: 02/17/20 07:20 Freq: Status: Active Protocol: Document 04/21/20 10:23 MB (Rec: 04/21/20 10:46 MB [id number]) Cardio Equipment Bicycle (Upright) Duration (Minutes) 15 Resistance 10 Seat Position 2 Therapeutic Exercises Other Exercises Revised HEP today Other Exercise Name Pelvic realignment exercises, Mason stretch with core, hamstring stretch Comments Sit QL and hamstring, heel slide ER and standing mini lunge Gait Training Gait Activity 6MWT and then gait training Comments 1173 ft in 6 minutes, one episode scuffing left foot PT-OP-T Assessment and Plan Start: 02/17/20 07:20 Freq: Status: Active Protocol: Document 04/21/20 10:23 MB (Rec: 04/21/20 10:46 MB [id number]) Physical Therapy Assessment Rehab Potential Rehabilitation Potential Fair Evaluation Complexity Number of Personal Factors/Comorbidities 1-2 Number of Body Systems Impaired 1-2 Clinical Presentation at Evaluation Evolving Impairments Impairments Activity Tolerance,Balance, Gait,Pain,Posture,ROM,Soft Tissue Mobility,Strength Other Impairments Pt reports history of B peripheral neuropathy, ongoing LE symptoms after surgery, recent fusion Goals 6 Application Infrastructure Engineer Goal (LTG) Pt will perform 12 reps sit to stand without UE support in 30 sec to improve left hip functional strength by 2019. LTG Duration 8 weeks 5 Application Infrastructure Engineer Goal (LTG) Pt will perform progressive HEP with I including pelvic realignment, postural, flexibility, strengthening and balance exercises to improve pain and function by 2019. 04/21/2020: Pt is performing exercises given so far, mostly flexibility and core exercises LTG Duration 8 weeks 4 Care Home Goal (LTG) Pt will present with B hip flexion, abduction, adduction MMT to at least 4/5 by 2019 to improve functional transfers and gait. 04/21/2020: Goal met: right hip flexion and abduction 5/5 and left 4/5 (fatigues) LTG Duration 8 weeks 3 Care Home Goal (LTG) Pt will gait train at least 1300 feet in 6 minutes with LRAD if needed to improve community ambulation by 2019. 04/21/2020: Pt meets reassessment gait goal of 1000 ft and is able to gait train 1173 ft. Increased gait distance goal LTG Duration 8 weeks 2 Care Home Goal (LTG) Pt will report a 50% improvement in right leg pain to improve functional transfers and gait by 05/06/2020 . 04/21/2020: Pt reports at least a 50% improvement in right leg pain since starting PT. Goal met LTG Duration 8 weeks 1 Care Home Goal (LTG) Pt will present with an improved Oswestry LBP score to reflect no more than 20% impairment to reflect less pain with function by 2019. 04/21/2020: Same score reflecting 36% impairment but pt reports better understanding of questions at reassessment date LTG Duration 8 weeks Assessment Summary Assessment Pt has met the following PT goals since starting PT: right pain, B hip abduction and flexion strength goals, 6MWT gait distance. He has progressed with HEP, can now lift his left heel over his right knee in hook lying. Progressed 6MWT goal and added sit to stand goal to improve functional left hip strength-- pt still reports trouble getting up off the ground when gardening when his left leg is behind. Physical Therapy Plan Frequency and Duration Frequency of Treatment 2x/Week Duration of Treatment 8 weeks Plan of Care Start Date 04/21/20 Plan of Care End Date 06/22/20 Therapeutic Interventions Therapeutic Interventions Aquatic Therapy,Balance Training,Canalithic Repositioning,Gait Training, Home Exercise Program,Manual Therapy,Neuromuscular Re- education,Patient/Caregiver Education,Self-Care/Home Management,Sensory Integration ,Soft Tissue Mobilization, Taping,Therapeutic Activities, Therapeutic Exercises Modalities Cold Pack/Ice Massage,Electric Stimulation,Hot Packs, Ultrasound Next Visit Focus/Plan Next Note Type Treatment Note Next Visit Plan Progress hip abductor strengthening in hook lying with core; standing mini march against wall, hip abduction and extension strengthening in standing
--- NOTE | 2020-04-21 11:17 | PT.OPPOC ---
Physical, Occupational & Speech Therapy At [facility] Current Diagnoses Strain of muscle, fascia and tendon of lower back, subsequent encounter (04/21/20) Arthrodesis status (04/21/20) Visit Care Team Role Provider Type Elton Dang MD Family Provider Non-Staff Primary Care Provider Specialty: Family Practice Address: [address], [address], [place], [address] Email: Tc Cho MD Attending Provider Physician Referring Provider Specialty: Orthopedic Surgery Address: [address] [place] [address], [place], [address] Email: [email or web address] Plan Of Care PT-OP-T Assessment and Plan Start: 02/17/20 07:20 Freq: Status: Active Protocol: Document 04/21/20 10:23 MB (Rec: 04/21/20 10:46 MB [id number]) Physical Therapy Assessment Rehab Potential Rehabilitation Potential Fair Evaluation Complexity Number of Personal Factors/Comorbidities 1-2 Number of Body Systems Impaired 1-2 Clinical Presentation at Evaluation Evolving Impairments Impairments Activity Tolerance,Balance, Gait,Pain,Posture,ROM,Soft Tissue Mobility,Strength Other Impairments Pt reports history of B peripheral neuropathy, ongoing LE symptoms after surgery, recent fusion Goals 6 Senior Gis Analyst Goal (LTG) Pt will perform 12 reps sit to stand without UE support in 30 sec to improve left hip functional strength by 2019. LTG Duration 8 weeks 5 Senior Gis Analyst Goal (LTG) Pt will perform progressive HEP with I including pelvic realignment, postural, flexibility, strengthening and balance exercises to improve pain and function by 2019. 04/21/2020: Pt is performing exercises given so far, mostly flexibility and core exercises LTG Duration 8 weeks 4 Senior Gis Analyst Goal (LTG) Pt will present with B hip flexion, abduction, adduction MMT to at least 4/5 by 2019 to improve functional transfers and gait. 04/21/2020: Goal met: right hip flexion and abduction 5/5 and left 4/5 (fatigues) LTG Duration 8 weeks 3 Prison Goal (LTG) Pt will gait train at least 1300 feet in 6 minutes with LRAD if needed to improve community ambulation by 2019. 04/21/2020: Pt meets reassessment gait goal of 1000 ft and is able to gait train 1173 ft. Increased gait distance goal LTG Duration 8 weeks 2 Prison Goal (LTG) Pt will report a 50% improvement in right leg pain to improve functional transfers and gait by 05/06/2020 . 04/21/2020: Pt reports at least a 50% improvement in right leg pain since starting PT. Goal met LTG Duration 8 weeks 1 Senior Gis Analyst Goal (LTG) Pt will present with an improved Oswestry LBP score to reflect no more than 20% impairment to reflect less pain with function by 2019. 04/21/2020: Same score reflecting 36% impairment but pt reports better understanding of questions at reassessment date LTG Duration 8 weeks Assessment Summary Assessment Pt has met the following PT goals since starting PT: right pain, B hip abduction and flexion strength goals, 6MWT gait distance. He has progressed with HEP, can now lift his left heel over his right knee in hook lying. Progressed 6MWT goal and added sit to stand goal to improve functional left hip strength-- pt still reports trouble getting up off the ground when gardening when his left leg is behind. Physical Therapy Plan Frequency and Duration Frequency of Treatment 2x/Week Duration of Treatment 8 weeks Plan of Care Start Date 04/21/20 Plan of Care End Date 06/22/20 Therapeutic Interventions Therapeutic Interventions Aquatic Therapy,Balance Training,Canalithic Repositioning,Gait Training, Home Exercise Program,Manual Therapy,Neuromuscular Re- education,Patient/Caregiver Education,Self-Care/Home Management,Sensory Integration ,Soft Tissue Mobilization, Taping,Therapeutic Activities, Therapeutic Exercises Modalities Cold Pack/Ice Massage,Electric Stimulation,Hot Packs, Ultrasound Next Visit Focus/Plan Next Note Type Treatment Note Next Visit Plan Progress hip abductor strengthening in hook lying with core; standing mini november against wall, hip abduction and extension strengthening in standing Plan of Care Dates Plan of Care Start Date 04/21/20 Plan of Care End Date 06/22/20 Electronically Signed by: Oralia Lopez, PT 04/21/20 [id number] Please Sign and Return: I have reviewed this Plan of Care and certify that the skilled therapy services above are required to meet the patient?s needs. Physician Signature Date Printed Name and Credentials Clinical Instructor Signature Printed Name and Credentials
--- NOTE | 2020-04-23 11:17 | PT.OTN ---
Current Diagnoses Strain of muscle, fascia and tendon of lower back, subsequent encounter (04/23/20) Arthrodesis status (04/23/20) Physical Therapy Treatment Note PT-OP-A Visit Information Start: 02/17/20 07:20 Freq: Status: Active Protocol: Document 04/23/20 10:34 MB (Rec: 04/23/20 11:15 MB [id number]) Out-Patient Physical Therapy Visit Information Visit Information Visit Type Treatment Note Visit Start Time 10:34 Visit Stop Time 11:15 Total Visit Minutes 41 Visit Number 11 PT-OP-B Current Condition Start: 02/17/20 07:20 Freq: Status: Active Protocol: Document 03/04/20 10:31 MB (Rec: 03/04/20 10:44 MB [id number]) Current Condition History of Current Condition Onset Date 2014 Current Complaints Right adductor, SI and foot pain. History of Current Condition Pt underwent spine surgery October 2019 and states that it was a fusion. It was supposed to help with right leg pain but has really not done so. Pt reports 5/10 right adductor area pain, 2/10 right SI pain, 3/10 right foot pain. He has a history of B foot neuropathy. They think it is from his back. He is pre- diabetic. He reports neuropathy for 3 years. He has restless leg syndrome. He has had it for five years. Back pain started around that time. Pt states that he feels that his hips are waited when he stands up and that he cannot stand up very long. He has been using SBQC in his right hand. He is sleeping pretty well. He sleeps on his right side or belly. He uses pillow between knees when on side. He reports numbness and tingling in the feet and that he feels nerve issues in the right leg. Sometimes the neuropathy keeps him from sleeping but he is sleeping up to 6-7 hours a night. Pt states that he was very anemic and falling down some after GI bleed in February. He was admitted and had a colonoscopy and endoscopy and is awaiting results this Monday. He is taking an iron supplement. He is regular bowel movements and does not notice occult blood in stool. He has not had any recent falls. He reports his last fall was in February before he went to hospital the last time . Prior Treatments and Tests Lumbar spinal fusion 10/2019 No PT in past Treatment Goals Patient/Caregiver Goals To get the strength back in his leg and be able to get up off the ground such as with gardening. He would like to work in arm strength as well to help with sit and stands. PT-OP-C Subjective Start: 02/17/20 07:20 Freq: Status: Active Protocol: Document 04/23/20 10:34 MB (Rec: 04/23/20 11:15 MB [id number]) OP-PT Subjective Patient Comments Patient Comments Pt states that he hasn't had any problems since last treatment. PT-OP-G Mobility & Gait Start: 03/04/20 13:29 Freq: Status: Active Protocol: Document 03/04/20 10:31 MB (Rec: 03/04/20 13:47 MB [id number]) OP Gait Assessment Gait Gait Assistance Required: Independent Distance (Feet) 65 Assistive Devices Assistive Device Small Based Quad Cane Orthotic/Prosthetic Devices or Brace: No Gait Deviations General Gait Pattern Antalgic,Ataxic,Decreased Stride Length,Decreased Feet Clearance,Flexed Trunk,Lateral Trunk Lean Factors Limiting Gait Function Factors Limiting Gait Function Decreased Strength,Pain,Poor Balance Comments Gait Comments Pt arrives with cane in right hand. PT educates pt to walk with cane in left hand in order to unweight right LLE. Pt lowers cane 1 and his gait is mildly better. PT-OP-J Posture/Palpation/Skin Start: 02/17/20 07:20 Freq: Status: Active Protocol: Document 03/04/20 10:31 MB (Rec: 03/04/20 13:47 MB [id number]) Posture Evaluation Comments Posture Comments Standing posture: B shoulder elevation, greater on the left with anterior positioning of left shoulder, Dowager's hump, decreased thoracic kyphosis, right iliac crest higer than the left, pt stands with heels close and increased Peter angle on the left, anterior tilt pelvis and increased lower lumbar lordosis. Pt reports old TIA or stroke that might have affected his right side but he is not clear about the symptoms. Pt with post-surgical scars that are healing over central spine T12 -L5 and to the left of his lumbar spine. Deferred repeated lumbar flexion and extension d/t history of spinal fusion, similarly deferred Slump s/p fusion and known LE symptoms from spine pre-op. PT-OP-M Strength Start: 02/17/20 07:20 Freq: Status: Active Protocol: Document 03/04/20 10:31 MB (Rec: 03/04/20 13:47 MB [id number]) Hip Strength Hip Manual Muscle Testing Left Flexion (L2) 4 Good Abduction 3+ Fair+ Adduction 5 Normal Comments Supine Right Flexion (L2) 3+ Fair+ Abduction 3 Fair Adduction 3+ Fair+ Comments Pt supine Knee Strength Knee Manual Muscle Testing Left Flexion (S2) 4 Good Extension (L3) 5 Normal Comments Supine Right Flexion (S2) 4 Good Extension (L3) 4 Good Comments Supine Ankle/Foot Strength Ankle and Foot Manual Muscle Testing Left Dorsiflexion (L4) 4 Good Comments Great toe extension 3/5 Right Dorsiflexion (L4) 4 Good Comments Great toe extension 3-/5 PT-OP-Q Treatments Start: 02/17/20 07:20 Freq: Status: Active Protocol: Document 04/23/20 10:34 MB (Rec: 04/23/20 11:15 MB [id number]) Cardio Equipment Bicycle (Upright) Duration (Minutes) 10 Resistance 11 Seat Position 2 Therapeutic Exercises Sitting Exercises Clamshell Comments With level 1 band and abd drawing in, 10 reps Gait Training Gait Activity 6MWT and then gait training Comments 1189 ft feet in 6 minutes, no scuffing of left foot today Manual Therapy Treatment Other Other Manual Treatments B quad STM with rolling pin PT-OP-T Assessment and Plan Start: 02/17/20 07:20 Freq: Status: Active Protocol: Document 04/23/20 10:34 MB (Rec: 04/23/20 11:15 MB [id number]) Physical Therapy Assessment Rehab Potential Rehabilitation Potential Fair Evaluation Complexity Number of Personal Factors/Comorbidities 1-2 Number of Body Systems Impaired 1-2 Clinical Presentation at Evaluation Evolving Impairments Impairments Activity Tolerance,Balance, Gait,Pain,Posture,ROM,Soft Tissue Mobility,Strength Other Impairments Pt reports history of B peripheral neuropathy, ongoing LE symptoms after surgery, recent fusion Goals 6 Professor Computer Science Goal (LTG) Pt will perform 12 reps sit to stand without UE support in 30 sec to improve left hip functional strength by 2019. LTG Duration 8 weeks 5 Shelter Goal (LTG) Pt will perform progressive HEP with I including pelvic realignment, postural, flexibility, strengthening and balance exercises to improve pain and function by 2019. 04/21/2020: Pt is performing exercises given so far, mostly flexibility and core exercises LTG Duration 8 weeks 4 Shelter Goal (LTG) Pt will present with B hip flexion, abduction, adduction MMT to at least 4/5 by 2019 to improve functional transfers and gait. 04/21/2020: Goal met: right hip flexion and abduction 5/5 and left 4/5 (fatigues) LTG Duration 8 weeks 3 Shelter Goal (LTG) Pt will gait train at least 1300 feet in 6 minutes with LRAD if needed to improve community ambulation by 2019. 04/21/2020: Pt meets reassessment gait goal of 1000 ft and is able to gait train 1173 ft. Increased gait distance goal LTG Duration 8 weeks 2 Professor Computer Science Goal (LTG) Pt will report a 50% improvement in right leg pain to improve functional transfers and gait by 05/06/2020 . 04/21/2020: Pt reports at least a 50% improvement in right leg pain since starting PT. Goal met LTG Duration 8 weeks 1 Shelter Goal (LTG) Pt will present with an improved Oswestry LBP score to reflect no more than 20% impairment to reflect less pain with function by 2019. 04/21/2020: Same score reflecting 36% impairment but pt reports better understanding of questions at reassessment date LTG Duration 8 weeks Assessment Summary Assessment Pt with improved gait distance today and progressed hip strengthening Physical Therapy Plan Frequency and Duration Frequency of Treatment 2x/Week Duration of Treatment 8 weeks Plan of Care Start Date 04/21/20 Plan of Care End Date 06/22/20 Therapeutic Interventions Therapeutic Interventions Aquatic Therapy,Balance Training,Canalithic Repositioning,Gait Training, Home Exercise Program,Manual Therapy,Neuromuscular Re- education,Patient/Caregiver Education,Self-Care/Home Management,Sensory Integration ,Soft Tissue Mobilization, Taping,Therapeutic Activities, Therapeutic Exercises Modalities Cold Pack/Ice Massage,Electric Stimulation,Hot Packs, Ultrasound Next Visit Focus/Plan Next Note Type Treatment Note Next Visit Plan Progress standing mini march against wall, hip abduction and extension strengthening in standing
--- NOTE | 2020-04-28 11:19 | PT.OTN ---
Current Diagnoses Strain of muscle, fascia and tendon of lower back, subsequent encounter (04/28/20) Arthrodesis status (04/28/20) Physical Therapy Treatment Note PT-OP-A Visit Information Start: 02/17/20 07:20 Freq: Status: Active Protocol: Document 04/28/20 10:32 MB (Rec: 04/28/20 11:10 MB [id number]) Out-Patient Physical Therapy Visit Information Visit Information Visit Type Treatment Note Visit Start Time 10:32 Visit Stop Time 11:15 Total Visit Minutes 43 Visit Number 12 PT-OP-B Current Condition Start: 02/17/20 07:20 Freq: Status: Active Protocol: Document 03/04/20 10:31 MB (Rec: 03/04/20 10:44 MB [id number]) Current Condition History of Current Condition Onset Date 2014 Current Complaints Right adductor, SI and foot pain. History of Current Condition Pt underwent spine surgery October 2019 and states that it was a fusion. It was supposed to help with right leg pain but has really not done so. Pt reports 5/10 right adductor area pain, 2/10 right SI pain, 3/10 right foot pain. He has a history of B foot neuropathy. They think it is from his back. He is pre- diabetic. He reports neuropathy for 3 years. He has restless leg syndrome. He has had it for five years. Back pain started around that time. Pt states that he feels that his hips are waited when he stands up and that he cannot stand up very long. He has been using SBQC in his right hand. He is sleeping pretty well. He sleeps on his right side or belly. He uses pillow between knees when on side. He reports numbness and tingling in the feet and that he feels nerve issues in the right leg. Sometimes the neuropathy keeps him from sleeping but he is sleeping up to 6-7 hours a night. Pt states that he was very anemic and falling down some after GI bleed in February. He was admitted and had a colonoscopy and endoscopy and is awaiting results this Monday. He is taking an iron supplement. He is regular bowel movements and does not notice occult blood in stool. He has not had any recent falls. He reports his last fall was in February before he went to hospital the last time . Prior Treatments and Tests Lumbar spinal fusion 10/2019 No PT in past Treatment Goals Patient/Caregiver Goals To get the strength back in his leg and be able to get up off the ground such as with gardening. He would like to work in arm strength as well to help with sit and stands. PT-OP-C Subjective Start: 02/17/20 07:20 Freq: Status: Active Protocol: Document 04/28/20 10:32 MB (Rec: 04/28/20 11:10 MB [id number]) OP-PT Subjective Patient Comments Patient Comments Pt states that he is doing a lot better. His back hasn't been hurting. He still needs support with getting up off the ground for gardening. He moved rocks in the garden without back pain. PT-OP-G Mobility & Gait Start: 03/04/20 13:29 Freq: Status: Active Protocol: Document 03/04/20 10:31 MB (Rec: 03/04/20 13:47 MB [id number]) OP Gait Assessment Gait Gait Assistance Required: Independent Distance (Feet) 65 Assistive Devices Assistive Device Small Based Quad Cane Orthotic/Prosthetic Devices or Brace: No Gait Deviations General Gait Pattern Antalgic,Ataxic,Decreased Stride Length,Decreased Feet Clearance,Flexed Trunk,Lateral Trunk Lean Factors Limiting Gait Function Factors Limiting Gait Function Decreased Strength,Pain,Poor Balance Comments Gait Comments Pt arrives with cane in right hand. PT educates pt to walk with cane in left hand in order to unweight right LLE. Pt lowers cane 1 and his gait is mildly better. PT-OP-J Posture/Palpation/Skin Start: 02/17/20 07:20 Freq: Status: Active Protocol: Document 03/04/20 10:31 MB (Rec: 03/04/20 13:47 MB [id number]) Posture Evaluation Comments Posture Comments Standing posture: B shoulder elevation, greater on the left with anterior positioning of left shoulder, Dowager's hump, decreased thoracic kyphosis, right iliac crest higer than the left, pt stands with heels close and increased Peter angle on the left, anterior tilt pelvis and increased lower lumbar lordosis. Pt reports old TIA or stroke that might have affected his right side but he is not clear about the symptoms. Pt with post-surgical scars that are healing over central spine T12 -L5 and to the left of his lumbar spine. Deferred repeated lumbar flexion and extension d/t history of spinal fusion, similarly deferred Slump s/p fusion and known LE symptoms from spine pre-op. PT-OP-M Strength Start: 02/17/20 07:20 Freq: Status: Active Protocol: Document 03/04/20 10:31 MB (Rec: 03/04/20 13:47 MB [id number]) Hip Strength Hip Manual Muscle Testing Left Flexion (L2) 4 Good Abduction 3+ Fair+ Adduction 5 Normal Comments Supine Right Flexion (L2) 3+ Fair+ Abduction 3 Fair Adduction 3+ Fair+ Comments Pt supine Knee Strength Knee Manual Muscle Testing Left Flexion (S2) 4 Good Extension (L3) 5 Normal Comments Supine Right Flexion (S2) 4 Good Extension (L3) 4 Good Comments Supine Ankle/Foot Strength Ankle and Foot Manual Muscle Testing Left Dorsiflexion (L4) 4 Good Comments Great toe extension 3/5 Right Dorsiflexion (L4) 4 Good Comments Great toe extension 3-/5 PT-OP-Q Treatments Start: 02/17/20 07:20 Freq: Status: Active Protocol: Document 04/28/20 10:32 MB (Rec: 04/28/20 11:10 MB [id number]) Cardio Equipment Bicycle (Upright) Duration (Minutes) 10 Resistance 11 Seat Position 2 Therapeutic Exercises Other Exercises Racquet ball massage glutes and intrascapular muscles Comments Ed today B Mini squat with ball between knees Comments Core engaged, slow Gait Training Gait Activity 6MWT and then gait training Comments 1306 ft in 6 minutes today with no left foot scuffing PT-OP-T Assessment and Plan Start: 02/17/20 07:20 Freq: Status: Active Protocol: Document 04/28/20 10:32 MB (Rec: 04/28/20 11:10 MB [id number]) Physical Therapy Assessment Rehab Potential Rehabilitation Potential Fair Evaluation Complexity Number of Personal Factors/Comorbidities 1-2 Number of Body Systems Impaired 1-2 Clinical Presentation at Evaluation Evolving Impairments Impairments Activity Tolerance,Balance, Gait,Pain,Posture,ROM,Soft Tissue Mobility,Strength Other Impairments Pt reports history of B peripheral neuropathy, ongoing LE symptoms after surgery, recent fusion Goals 6 Retirement Goal (LTG) Pt will perform 12 reps sit to stand without UE support in 30 sec to improve left hip functional strength by 2019. LTG Duration 8 weeks 5 Hotel Clerk Goal (LTG) Pt will perform progressive HEP with I including pelvic realignment, postural, flexibility, strengthening and balance exercises to improve pain and function by 2019. 04/21/2020: Pt is performing exercises given so far, mostly flexibility and core exercises LTG Duration 8 weeks 4 Retirement Goal (LTG) Pt will present with B hip flexion, abduction, adduction MMT to at least 4/5 by 2019 to improve functional transfers and gait. 04/21/2020: Goal met: right hip flexion and abduction 5/5 and left 4/5 (fatigues) LTG Duration 8 weeks 3 Hotel Clerk Goal (LTG) Pt will gait train at least 1300 feet in 6 minutes with LRAD if needed to improve community ambulation by 2019. 04/21/2020: Pt meets reassessment gait goal of 1000 ft and is able to gait train 1173 ft. Increased gait distance goal LTG Duration 8 weeks 2 Hotel Clerk Goal (LTG) Pt will report a 50% improvement in right leg pain to improve functional transfers and gait by 05/06/2020 . 04/21/2020: Pt reports at least a 50% improvement in right leg pain since starting PT. Goal met LTG Duration 8 weeks 1 Hotel Clerk Goal (LTG) Pt will present with an improved Oswestry LBP score to reflect no more than 20% impairment to reflect less pain with function by 2019. 04/21/2020: Same score reflecting 36% impairment but pt reports better understanding of questions at reassessment date LTG Duration 8 weeks Assessment Summary Assessment Pt with improved gait distance today and added mini squat and self-massage. Physical Therapy Plan Frequency and Duration Frequency of Treatment 2x/Week Duration of Treatment 8 weeks Plan of Care Start Date 04/21/20 Plan of Care End Date 06/22/20 Therapeutic Interventions Therapeutic Interventions Aquatic Therapy,Balance Training,Canalithic Repositioning,Gait Training, Home Exercise Program,Manual Therapy,Neuromuscular Re- education,Patient/Caregiver Education,Self-Care/Home Management,Sensory Integration ,Soft Tissue Mobilization, Taping,Therapeutic Activities, Therapeutic Exercises Modalities Cold Pack/Ice Massage,Electric Stimulation,Hot Packs, Ultrasound Next Visit Focus/Plan Next Note Type Treatment Note Next Visit Plan Progress standing hip abduction and extension strengthening in standing
--- NOTE | 2020-05-26 08:44 | PT-OP ANOTE ---
PT calls Dr. Cho's office to inquire about authorization given gap in patient care/POC. PT leaves message with triage nurse. She states that order will be faxed.
--- NOTE | 2020-06-04 08:45 | PT-OP ANOTE ---
PT calls pt to check in d/t not having seen pt in many weeks d/t auth issues. PT leaves message for pt to call back with any concerns. Will keep current appointments scheduled in case auth comes in. Left pt PT's email address in case he has any questions he would like to communicate in that way.
--- NOTE | 2020-06-08 09:26 | PT.OPDS ---
Current Diagnoses Strain of muscle, fascia and tendon of lower back, subsequent encounter (04/28/20) Arthrodesis status (04/28/20) Visit Care Team Role Provider Type Elton Dang MD Family Provider Non-Staff Primary Care Provider Specialty: Family Practice Address: [address], [address], [place], [address] Email: Tc Cho MD Attending Provider Physician Referring Provider Specialty: Orthopedic Surgery Address: [address] [place] [address], [id number] Email: [email or web address] Visit Number Visit Number 12 Discharge Summary PT-OP-B Current Condition Start: 02/17/20 07:20 Freq: Status: Active Protocol: Document 03/04/20 10:31 MB (Rec: 03/04/20 10:44 MB [id number]) Current Condition History of Current Condition Onset Date 2014 Current Complaints Right adductor, SI and foot pain. History of Current Condition Pt underwent spine surgery October 2019 and states that it was a fusion. It was supposed to help with right leg pain but has really not done so. Pt reports 5/10 right adductor area pain, 2/10 right SI pain, 3/10 right foot pain. He has a history of B foot neuropathy. They think it is from his back. He is pre- diabetic. He reports neuropathy for 3 years. He has restless leg syndrome. He has had it for five years. Back pain started around that time. Pt states that he feels that his hips are waited when he stands up and that he cannot stand up very long. He has been using SBQC in his right hand. He is sleeping pretty well. He sleeps on his right side or belly. He uses pillow between knees when on side. He reports numbness and tingling in the feet and that he feels nerve issues in the right leg. Sometimes the neuropathy keeps him from sleeping but he is sleeping up to 6-7 hours a night. Pt states that he was very anemic and falling down some after GI bleed in February. He was admitted and had a colonoscopy and endoscopy and is awaiting results this Monday. He is taking an iron supplement. He is regular bowel movements and does not notice occult blood in stool. He has not had any recent falls. He reports his last fall was in February before he went to hospital the last time . Prior Treatments and Tests Lumbar spinal fusion 10/2019 No PT in past Treatment Goals Patient/Caregiver Goals To get the strength back in his leg and be able to get up off the ground such as with gardening. He would like to work in arm strength as well to help with sit and stands. PT-OP-C Subjective Start: 02/17/20 07:20 Freq: Status: Active Protocol: Document 04/28/20 10:32 MB (Rec: 04/28/20 11:10 MB [id number]) OP-PT Subjective Patient Comments Patient Comments Pt states that he is doing a lot better. His back hasn't been hurting. He still needs support with getting up off the ground for gardening. He moved rocks in the garden without back pain. PT-OP-G Mobility & Gait Start: 03/04/20 13:29 Freq: Status: Active Protocol: Document 03/04/20 10:31 MB (Rec: 03/04/20 13:47 MB [id number]) OP Gait Assessment Gait Gait Assistance Required: Independent Distance (Feet) 65 Assistive Devices Assistive Device Small Based Quad Cane Orthotic/Prosthetic Devices or Brace: No Gait Deviations General Gait Pattern Antalgic,Ataxic,Decreased Stride Length,Decreased Feet Clearance,Flexed Trunk,Lateral Trunk Lean Factors Limiting Gait Function Factors Limiting Gait Function Decreased Strength,Pain,Poor Balance Comments Gait Comments Pt arrives with cane in right hand. PT educates pt to walk with cane in left hand in order to unweight right LLE. Pt lowers cane 1 and his gait is mildly better. PT-OP-J Posture/Palpation/Skin Start: 02/17/20 07:20 Freq: Status: Active Protocol: Document 03/04/20 10:31 MB (Rec: 03/04/20 13:47 MB [id number]) Posture Evaluation Comments Posture Comments Standing posture: B shoulder elevation, greater on the left with anterior positioning of left shoulder, Dowager's hump, decreased thoracic kyphosis, right iliac crest higer than the left, pt stands with heels close and increased Peter angle on the left, anterior tilt pelvis and increased lower lumbar lordosis. Pt reports old TIA or stroke that might have affected his right side but he is not clear about the symptoms. Pt with post-surgical scars that are healing over central spine T12 -L5 and to the left of his lumbar spine. Deferred repeated lumbar flexion and extension d/t history of spinal fusion, similarly deferred Slump s/p fusion and known LE symptoms from spine pre-op. PT-OP-M Strength Start: 02/17/20 07:20 Freq: Status: Active Protocol: Document 03/04/20 10:31 MB (Rec: 03/04/20 13:47 MB [id number]) Hip Strength Hip Manual Muscle Testing Left Flexion (L2) 4 Good Abduction 3+ Fair+ Adduction 5 Normal Comments Supine Right Flexion (L2) 3+ Fair+ Abduction 3 Fair Adduction 3+ Fair+ Comments Pt supine Knee Strength Knee Manual Muscle Testing Left Flexion (S2) 4 Good Extension (L3) 5 Normal Comments Supine Right Flexion (S2) 4 Good Extension (L3) 4 Good Comments Supine Ankle/Foot Strength Ankle and Foot Manual Muscle Testing Left Dorsiflexion (L4) 4 Good Comments Great toe extension 3/5 Right Dorsiflexion (L4) 4 Good Comments Great toe extension 3-/5 PT-OP-T Assessment and Plan Start: 02/17/20 07:20 Freq: Status: Active Protocol: Document 06/08/20 09:25 MB (Rec: 06/08/20 09:26 MB [id number]) Physical Therapy Plan Discharge Physical Therapy Discharge Reasons No Longer Attending PT Discharge Comments Pt has not been seen since d/t authorization issues. PT called doctor's office a couple of weeks ago to request and it has still not been received. Left two messages with pt who has not returned PT's calls. Left message today regarding d/c PT at this time for pt to contact PT with any questions. Recommended follow-up with doctor for new order as appropriate. D/c PT.
== END 2020-06-22 12:55 ==
LOC: PHYS 10:30
PROVIDERS: Family Provider Family Medicine; PCP Family Medicine; Referring Provider Orthopaedic Surgery; Visit Provider Orthopaedic Surgery
DX: Z98.1 Arthrodesis status (principal); S39.012D Strain of muscle, fascia and tendon of lower back, subsequent encounter
CPT/HCPCS: 97110; 97116; 97140; 97161; 97535

== ENCOUNTER → 2020-09-10 10:20 | Outpatient (CLI) | payer OTHER, SELFPAY ==
[2020-02-13 13:21] VITALS: BMI 36.6
[2020-09-10 11:05] LABS: COVID19 -Nasal RAPID Negative (Negative)
== END ==
PROVIDERS: Family Provider Family Medicine; PCP Family Medicine; Visit Provider Surgery
DX: Z20.822 Contact with and (suspected) exposure to COVID-19 (principal); Z01.812 Encounter for preprocedural laboratory examination
CPT/HCPCS: 87635; C9803

== ENCOUNTER 2020-09-11 08:52 | Day surgery (SDC) | payer OTHER, SELFPAY ==
[2020-02-13 13:21] VITALS: BMI 36.6
[2020-09-11] VITALS (12 sets, daily range): BP systolic 89–135; BP diastolic 55–80; PULSE 53–69; RESP 10–17; TEMP 36.2–37.2; O2SAT 94–99; BMI 35.6
--- NOTE | 2020-09-11 | PATH_ITS ---
[facility] Accession Number: [id number] . 01 Material submitted: . PART A: duodenum - DUODENUM BIOPSIES PART B: gastrointestinal site - STOMACH BIOPSIES PART C: esophagus - ESOPHAGEAL BIOPSIES . 02 Diagnosis: A. Duodenum, Biopsies: Duodenal mucosa with no diagnostic abnormality. Negative for active inflammation, features of sprue, dysplasia, or malignancy. . B. Stomach, Biopsies: Antral mucosa with mild chronic gastritis. Negative for Helicobacter organisms by immunohistochemistry. Negative for intestinal metaplasia. Negative for dysplasia and malignancy. . C. Esophagus, Biopsies: Squamous epithelium with no diagnostic abnormality. Intraepithelial eosinophils are not increased. Negative for dysplasia and malignancy. I 09/17/2020 1515 Local . 02 Electronically signed: . Bev Lemus MD, Pathologist NPI- [id number] . 01 Gross description: . Part A: DUODENUM BIOPSIES: Received in formalin are 2 fragment(s) of lopez, soft tissue measuring 0.1 x 0.1 x 0.1 cm to 0.3 x 0.2 x 0.2 cm submitted entirely in 1 cassette(s) Part B: STOMACH BIOPSIES: Received in formalin are 2 fragment(s) of lopez, soft tissue measuring 0.1 x 0.1 x 0.1 cm in aggregate submitted entirely in 1 cassette(s) Part C: ESOPHAGEAL BIOPSIES: Received in formalin is 1 fragment(s) of lopez, soft tissue measuring 0.2 x 0.1 x 0.1 cm submitted entirely in 1 cassette(s) /PELON 09/14/2020 1855 Local . 02 Microscopic: . B. An immunohistochemical stain was performed to evaluate for Helicobacter organisms and is negative. The control stain showed appropriate reactivity. . * This test was developed and its performance characteristics determined by [facility]. It has not been cleared or approved by the U.S. Food and Drug Administration. The FDA has determined that such clearance or approval is not necessary. This test is used for clinical purposes. It should not be regarded as investigational or for research. . 02 Pathologist provided ICD-10: K29.70 . 02 CPT . 249246, 875502, 754926, [id number] Performed at: 01 [facility] [place] [address], [place], [place] [id number] MD Leonides Rosenberg MD Phone: [phone] Performed at: 02 [facility] [place] [address] [address] [place] [id number] MD Bev Lemus MD Phone: [phone]
--- NOTE | 2020-09-11 | DI.RAD.S_ITS ---
PROCEDURE: XR CHEST 1V INDICATIONS: please come to PACU TECHNIQUE: One view of the chest was acquired. COMPARISON: [facility], CT, CT ANGIO CHEST ABDOMEN PELVIS, 02/13/2020, 8:10. [facility], CR, XR CHEST 2V, 11/03/2019, 10:02. [facility], CR, CHEST 2 VIEW, 11/08/2016, 16:07. FINDINGS: Surgical changes and devices: None. Lungs and pleura: Lungs are clear. No pleural effusions or pneumothorax. Mediastinum: Mediastinal contours are unchanged. Elevation of the left hemidiaphragm. Heart size is prominent. Bones and chest wall: No suspicious bony lesions. Overlying soft tissues appear unremarkable. IMPRESSION: No acute cardiopulmonary abnormality. Dictated by: Kenneth Mcmanus M.D. on 09/11/2020 at 10:17 Approved by: Kenneth Mcmanus M.D. on 09/11/2020 at 10:19
[2020-09-11] MEDS: SODIUM CHLORIDE 0.9% 1,000 ML 200 ML IV (09:18)
--- NOTE | 2020-09-11 10:25 | P.HP_ITS ---
History of Present Illness History of Present Illness Date Patient Seen: 09/11/20 Time Patient Seen: 10:26 Chief complaint: SDC Narrative: This is a 70-year-old man with history of DM 2, hypertension, stroke with residual deficit, anemia, anticoagulation on Plavix, who was admittedto the hospital for anemia in February with finding of gastritis on EGD. He was also found to have multiple polyps on his colonoscopy, several of which were not removed during the procedure because it was an emergency procedure and anemic patient, and the removal of multiple polyps increase the time of the procedure, and decrease the risk of further bleeding, without contributing to treating his anemia. Since his hospital admission, he has been feeling better. He had a repeat CBC which shows hemoglobin at 8.6 in March, and 15 in July. He says he is now having brown stools with no more melena. He denies any abdominal pain, heartburn, or other concerning symptoms. He has been on Protonix 40 b.i.d. ROS: Positive for joint pain, denies blood in the stool, denies melena, Thirteen system review is otherwise negative other than as mentioned below and in HPI. PE: GENERAL: Well groomed and cooperative. Appears stated age. Answers questions promptly and appropriately. Vital signs noted. HENT: Normocephalic, atraumatic. Hearing intact. EYES: Conjunctiva pink, sclera white, no periorbital swelling. CARDIOVASCULAR: Regular rate. No pedal edema. RESPIRATORY: Non-tachypneic, breathing comfortably on room air. GASTROINTESTINAL: Abdomen soft and non-distended GENITALURINARY: No flank tenderness. MUSCULOSKELETAL: Equal tone and mass bilaterally. SKIN: Warm, dry, soft, appropriate color for ethnicity. No other lesions, rashes, or wounds. NEURO: Alert and Oriented X 3. No gross sensory deficits, or cognitive issues. PSYCH: Appropriate affect and mood. 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) Recurrent major depressive disorder, in full remission RLS (restless legs syndrome) Shortness of breath Type 2 diabetes mellitus without complication Undescended testicle of both sides Surgical History History of spinal fusion Family & Social History Social History: household members spouse lives independently Yes caregiver/support person No Tobacco & Substance use: Tobacco type cigarettes Smoking Status Former smoker alcohol intake current alcohol intake frequency holiday/special occasion Substance Use Type does not use Meds Home Medications and Allergies Home Medications Medication Instructions Recorded Confirmed Type lisinopril 20 mg PO QDAY #90 tab 09/07/18 09/11/20 Rx baclofen 20 mg tablet See Rx Instructions .ROUTE 02/04/19 09/11/20 Rx .COMPLEX #270 tab clonazepam 1 mg tablet 0.5 mg PO HS #30 tab 04/24/19 09/11/20 Rx Qvar RediHaler 1 inh INHALATION BID PRN 09/30/19 09/11/20 History amlodipine 10 mg PO BEDTIME 09/30/19 09/11/20 History clopidogrel 75 mg PO DAILY 09/30/19 09/11/20 History duloxetine 30 mg PO BEDTIME 09/30/19 09/11/20 History metformin [Glucophage] 1,000 mg PO BIDCC 09/30/19 09/11/20 History tamsulosin [Flomax] 0.12 mg PO QDAY 09/30/19 09/11/20 History gabapentin 600 mg PO BID 10/31/19 09/11/20 History albuterol sulfate 90 mcg/actuation 1 puff INHALATION PRN PRN #18 12/03/19 03/05/20 Rx aerosol inhaler inhalation atorvastatin [Lipitor] 20 mg PO BEDTIME 02/13/20 09/11/20 History pantoprazole 40 mg PO BID #60 tab 09/11/20 Rx Allergies Allergy/AdvReac Type Severity Reaction Status Date / Time No Known Drug Allergies Allergy Verified 09/11/20 09:07 Exam Vital Signs (past 8 hours): - 09/11/20 09:27 Temperature 97.1 F L Pulse Rate 62 Respiratory Rate 17 Blood Pressure 135/68 Pulse Oximetry 96 Oxygen Delivery Method Room Air Assessment & Plan Assessment and plan (1) Platelet inhibition due to Plavix: Status: Acute (2) Chronic blood loss anemia: Status: Acute (3) GI bleed: Qualifiers: GI bleed type/associated pathology: unspecified gastrointestinal he morrhage type Qualified Code(s): K92.2 - Gastrointestinal hemorrhage, unspecified Status: Acute (4) Anemia: Qualifiers: Anemia type: unspecified type Qualified Code(s): D64.9 - Anemia, unspecified Status: Acute (5) Type 2 diabetes mellitus without complication: Status: Chronic (6) Essential hypertension: Status: Chronic (7) Posterior inferior cerebellar artery syndrome: Problem details: WALLENBERG SYNDROME Status: Chronic (8) Iron deficiency: Status: Chronic (9) Gastritis determined by biopsy: Problem details: Risks and benefits of surveillance EGD and possible biopsy were discussed with the patient including risk of bleeding, perforation, need for additional procedures, risks of anesthesia. The patient desires to proceed with the EGD procedure. Due to his stroke history this patient is at high risk for procedural complications especially related to sedation. I consulted anesthesia to provide sedation and monitored anesthesia care during this procedure for the safety of the patient. Plan: Proceed with EGD/biopsies under MAC Status: Acute
--- NOTE | 2020-09-11 10:43 | PM.OP.ENDO ---
Operative Date/Time/Diagnoses Date of procedure: 09/11/20 Time of procedure: 10:43 Pre-op diagnosis: Gastritis with anemia Post-op diagnosis: other (Gastritis, retained medication and food particles in the upper esophagus) Procedure & Clinicians Study performed: EGD Biopsies of duodenum, stomach, and distal esophagus Indications: History of gastritis with hemorrhage, here for surveillance of PPI therapy. Is a patient with significant stroke history, who is medically fragile, and requires a etiology for this is usually care due to the high risk of cardiac or respiratory complications during this procedure. Surgeon: Nena Oshea Procedure Notes SCOAP/Timeout: Performed Procedure in detail: The patient was brought to the room and placed in left lateral decubitus position with all bony prominences padded. A bite block was positioned in the patient's mouth to protect the lips, teeth, and tongue for the procedure. A time-out was performed and then the patient was Under procedural sedation by Dr. Vargas. Vitals were monitored by Dr. Vargas throughout the procedure. Once adequately sedated, the procedure was begun. The lubricated gastroscope was passed through the bite block and across the tongue and into the esophagus without incident. A tubular view of the esophagus was maintained as the scope was advanced through the esophagus and into the stomach. Some partially digested pill material and food debris were seen in the upper esophagus on the way down. The esophagus was noted to be quite patulous. The scope was advanced through the stomach and to the pylorus. The scope was gently popped through the pylorus and into the duodenal bulb. The scope was flexed and advanced into the second and third portions of the duodenum. The duodenum and duodenal bulb [appeared normal]. The scope was withdrawn into the stomach. Moderate endoscopic gastritis was seen in the stomach, and biopsies were taken. The scope was retroflexed and the gastric cardia was examined. The hiatus [appeared normal], without any significant gaping around the scope. The scope was then straightened, and withdrawn into the esophagus. The Z-line [appeared normal]. The distal esophagus [appeared normal]. Without backing out of the mid esophagus, I again saw some food debris and partially digested pill material in the upper esophagus at about 18-20 cm. The patient began to desaturate as I was attempting to dislodge the debris with irrigation and get a better look at the esophagus at this point. It looks like he may have an upper esophageal diverticulum, but I was not able to get a complete view. The patient suddenly desaturated to the 40s, and immediately I removed the scope. We removed the bite block, and Dr. Vargas placed an oral airway, and bagged the patient up to normal oxygen saturations. It did not appear that he aspirated during the procedure, but we will check his vitals and a chest x-ray in the recovery area, and consider overnight observation depending on his clinical picture. The patient was transferred to the PACU in stable condition. Findings: gastritis and other findings (Partially digested pill material and retained food particles in the upper esophagus, possible esophageal diverticulum not completely visualized) Specimen(s): other (Biopsies of duodenum, stomach, distal esophagus) Complications: other (Desaturation during attempt to remove debris from proximal esophagus. Patient recovered well upon removing the gastroscope and placing an oral airway.) Impression: Persistent gastritis. Abnormality in the upper esophagus which will need further evaluation with upper GI swallowing study. Post-procedure Recommendations: Continue medication(s) (Continue Protonix 40 during b.i.d.) and Will call with biopsy results Plan for aftercare: Transfer to postanesthesia care unit, and monitor vitals and chest x-ray. Patient will need barium esophagram and possible speech and swallow eval for upper esophageal retained food and pill particles. Follow up: as needed Disposition: PACU
== END 2020-09-11 12:17 | disposition home or self-care (01) ==
PROVIDERS: Family Provider Family Medicine; PCP Family Medicine; Referring Provider Family Medicine; Visit Provider Surgery
PROC: 0DJ08ZZ Inspection of Upper Intestinal Tract, Via Natural or Artificial Opening Endoscopic (ICD-10-PCS; CPT 43235; principal; 2020-09-11 10:00)
DX: K29.50 Unspecified chronic gastritis without bleeding (principal); D50.0 Iron deficiency anemia secondary to blood loss (chronic); I10 Essential (primary) hypertension; G46.3 Brain stem stroke syndrome; E11.9 Type 2 diabetes mellitus without complications; Z79.84 Long term (current) use of oral hypoglycemic drugs; Z86.73 Personal history of transient ischemic attack (TIA), and cerebral infarction without residual deficits; Z79.02 Long term (current) use of antithrombotics/antiplatelets
CPT/HCPCS: 43239; 71045

== ENCOUNTER → 2020-11-24 09:02 | Outpatient (CLI) | payer OTHER, SELFPAY ==
[2020-02-13 13:21] VITALS: BMI 36.6
--- NOTE | 2020-11-24 09:03 | DI.RAD.S_ITS ---
PROCEDURE: FL BARIUM SWALLOW W SPEECH INDICATIONS: undigested food an pills found in upper esophagus on EGD COMPARISON: None. TECHNIQUE: Examination was conducted in conjunction with speech pathology per standard protocol. In the lateral projection, filming was performed of the patient swallowing. AP projection filming may also be performed with patient swallowing. COMPARISON: FINDINGS: Function: The oral preparatory phase appears normal, with proper containment. The subsequent oral propulsive phase, pharyngeal phase, and esophageal phase of swallowing also appear normal with all proffered substances. No laryngotracheal penetration or aspiration. Pooling noted in the vallecula bilaterally and the right piriform sinus which was cleared with repeat swallows. Morphology: No cricopharyngeal bar is identified. No cervical esophageal webs. No Zenker's diverticulum. No strictures. IMPRESSION: 1. Bilateral vallecula and right piriform sinus pooling cleared with repeat swallows. 2. No Zenker's diverticulum. 3. 13 millimeter barium tablet readily passed from oral cavity to the stomach. Dictated by: Karen Maza MD, PhD on 11/24/2020 at 11:01 Approved by: Karen Maza MD, PhD on 11/24/2020 at 11:05
--- NOTE | 2020-11-24 14:47 | ST.SWALLOW ---
Visit Care Team Role Provider Type Elton Dang MD Family Provider Non-Staff Primary Care Provider Specialty: Family Practice Address: [address] [place] [address], [address], [place], [address] Email: Nena Oshea MD Attending Provider Physician Referring Provider Specialty: General Surgery Address: [address] [place] [address], [id number] Email: [email or web address] Modified Barium Swallow Study [employer] Modified Barium Swallow Study Start: 11/24/20 11:17 Freq: Status: Active Protocol: Document 11/24/20 11:18 TLC (Rec: 11/24/20 11:24 TLC [id number]) Modified Barium Swallow Study Total Time Visit Start Time 10:30 Visit Stop Time 10:50 Total Visit Minutes [address] Oshea Reason for Referral R/o Zenker's, upper esophageal dysmotility Setting Setting Outpatient Care Patient Information Identification Type Name Patient History Sherwin has history of dysphagia following CVA in 2011. He received inpatient speech therapy and went home on a modified diet, but advanced diet as tolerated at home and consumes regular textures at the present. Aside from inpatient speech therapy , he has not received any other speech therapy. He had an EGD in September of 2020 and undigested food and pills were found in the upper esophagus. His surgeon, Dr. Oshea, ordered an MBSS to rule out Zenker's diverticula and upper esophageal dysmotility. Patient reports difficulty swallowing both liquids and solids resulting in things feeling caught in his throat ~ 1/day. He currently compensates by implementing multiple swallows. Subjective Observations Sherwin arrived on time. He was unaccompanied by his who waited in the waiting area . Sherwin was alert and cooperative during the study. Patient Positioning Position View Lat-A/P Imaging Lateral View Textures Administered Trials Presented Thin Liquid via Spoon,Thin Liquid via Cup,[place] Liquid via Spoon,[place] Liquid via Cup,Honey Liquid via Spoon, Pudding Thick Liquid via Spoon ,Regular Textures Oral Phase Source: MBSIMP (TM) (C) Bolus Specific Scoring Grid Lip Closure No Impairment (WNL) Tongue Control During Bolus Hold No Impairment (WNL) Bolus Prep/Mastication No Impairment (WNL) Bolus Transport/Lingual Motion Mild Impairment Oral Residue Mild Impairment Additional Oral Phase Observations Bolus transport was brisk with the exception of the barium tablet during which repetitive /disorganized tongue motion was observed. Patient states he typically takes pills two at a time with water at home and says occasionally larger pills get stuck, but eventually pass with extra swallows and time. A collection of oral residue was observed on the tongue requiring a second dry swallow to clear. Trace oral residue was observed on the tongue and in the lateral sulci following subsequent swallows. Initiation of pharyngeal swallow was delayed to the level of the valleculae. Pharyngeal Phase Source: MBSIMP (TM) (C) Bolus Specific Scoring Grid Soft Palate Elevation No Impairment (WNL) Tongue Base Strength/Range of Motion Mild Impairment Laryngeal Elevation Mild Impairment Anterior Hyoid Movement No Impairment (WNL) Epiglottic Range of Motion No Impairment (WNL) Vallecular Residue Yes: collection reduced to trace amounts with second swallow Laryngeal Vestibular Closure No Impairment (WNL) Pharyngeal Stripping Wave No Impairment (WNL) Pharyngeal Contraction Mild Impairment Upper Esophageal Sphincter Opening Mild Impairment Residue in the Pyriform Sinuses Yes: collection reduced to trace amounts with second swallow Additional Pharyngeal Phase Observations Observed partial laryngeal elevation resulting flash penetration of thin liquids during single cup sip which remained above the vocal folds and was ejected from the airway (penetration aspiration scale score- 2). No aspiration observed during the study. Pharyngoesophageal segment opening was reduced in duration resulting in collection of residue in the pyriform sinuses. A collection of residue was also observed in the valleculae with most trials. Pharyngeal residue decreased in size resulting in only trace amounts following a second dry swallow which patient completed independently. Observed trace column of contrast between tongue base and pharyngeal wall indicating reduced tongue base retraction. A/P View Textures Administered Trials Presented Thin Liquid via Spoon,Barium Tablet A/P View Observations Additional Observations Observed incomplete pharyngeal contraction represented by a dynamic pouch ( pseudodiverticula) unilaterally in the high to mid pharynx which filled with contrast as the pharyngeal aguilar compressed and emptied as the pharynx returned to rest. This is likely cause of patient's pharyngeal residue which clears with double swallow. Esophageal Observations Esophageal Function Observed complete clearance of bolus Clinical Impressions Dysphagia Type Oropharyngeal Findings Patient presents with mild oropharyngeal dysphagia characterized by delayed initiation of swallow, oral and pharyngeal residue, reduced laryngeal elevation, reduced duration of PES opening and reduced tongue base retraction. He currently compensates by using a double swallow which is effective at clearing residue; however, he would likely benefit from outpatient speech therapy targeting patient education and oropharyngeal strengthening. Rehabilitation Potential Good Patient Appropriate for Therapy Yes Recommendations Diet Liquids Order Thin Diet Order Regular Medication Recommendation One at a Time Comments use carrier as needed to assist in bolus transport Aspiration Precautions Recommended Precautions Upright at 90 Degrees,Small Bites/Sips Treatment Plan Therapy Recommendations Outpatient Speech Therapy Additional Therapy Recommendations Effortful swallow, Marco maneuver, CTAR, tongue strengthening exercise
== END ==
PROVIDERS: Family Provider Family Medicine; PCP Family Medicine; Referring Provider Surgery; Visit Provider Surgery
DX: K22.9 Disease of esophagus, unspecified (principal); R19.8 Other specified symptoms and signs involving the digestive system and abdomen
CPT/HCPCS: 74230; 92611

== ENCOUNTER 2021-02-01 10:42 | Emergency (ER) | payer OTHER, SELFPAY ==
[2020-02-13 13:21] VITALS: BMI 36.6
[2021-02-01] VITALS (14 sets, daily range): BP systolic 123–171; BP diastolic 58–79; PULSE 56–69; RESP 16–18; TEMP 36.9; O2SAT 90–97; BMI 36.3
--- NOTE | 2021-02-01 11:08 | DI.CT.S_ITS ---
PROCEDURE: CT CERVICAL SPINE WO CON INDICATIONS: trip and fall on Plavix TECHNIQUE: Noncontrast 3 mm thick sections acquired from the skull base to the T4 level. Sagittal and coronal reformats were then constructed. For radiation dose reduction, the following was used: automated exposure control, adjustment of mA and/or kV according to patient size. COMPARISON: [facility], MR, C-SPINE WITHOUT CONTRAST, 11/16/2017, 7:08. [facility], CT, CT FACIAL BONES WO CON, 02/01/2021, 11:25. [facility], CT, CT HEAD/BRAIN WO CON, 02/01/2021, 11:25. FINDINGS: Image quality: Excellent. Bones: No fractures or dislocations. Visualized superior ribs are intact. Extensive cervical spine postoperative changes are seen, with removal of prominent portions of the 3rd through 6th vertebral bodies, with placement of a fibular graft anteriorly. There is ossification of the posterior longitudinal ligament posteriorly. Flowing bridging anterior osteophytes can be seen anteriorly, including involving the visualized thoracic spine. Soft tissues: Prevertebral soft tissues are normal in thickness. No paravertebral hematomas. No apical pneumothoraces. Calcified mediastinal and perihilar lymph nodes can be seen. IMPRESSION: No acute fractures are seen. Extensive cervical spine postoperative change. Ossification of the posterior longitudinal ligament. Underlying diffuse idiopathic skeletal hyperostosis (DISH) is suspected. Dictated by: Ankit Hills M.D. on 02/01/2021 at 10:53 Approved by: Ankit Hills M.D. on 02/01/2021 at 10:56
--- NOTE | 2021-02-01 11:08 | DI.CT.S_ITS ---
PROCEDURE: CT FACIAL BONES WO CON INDICATIONS: trip and fall on Plavix TECHNIQUE: Noncontrast 2.5 mm thick axial images acquired from the mandible through the frontal sinuses, with coronal and sagittal reformatting. For radiation dose reduction, the following was used: automated exposure control, adjustment of mA and/or kV according to patient size. COMPARISON: [facility], CT, CT HEAD/BRAIN WO CON, 02/13/2020, 8:10. [facility], CT, CT HEAD/BRAIN WO CON, 02/01/2021, 11:25. [facility], CT, CT CERVICAL SPINE WO CON, 02/01/2021, 11:25. FINDINGS: Image quality: Excellent. Bones and teeth: Right-sided facial bone fractures are seen, with a fracture of the right lateral orbital wall and the right orbital floor. There is a mildly displaced fracture of the right zygomatic arch. Comminuted fractures can be seen involving the anterior and lateral aguilar of the right maxillary sinus. Visualized portions of the mandible demonstrate no fractures or subluxation. Pterygoid plates are intact. Visualized portions of the skull base and auditory canals are intact. Sinuses: Blood can be seen within the right maxillary sinus and the right ethmoid air cells. Soft tissues: A small amount intraorbital soft tissue swelling and gas can be seen involving the inferior right orbit. No trena findings extraocular muscle entrapment can be seen. Soft tissue swelling can be seen involving the right face. Right periorbital soft tissue swelling is seen. Bubbles of gas can be seen, which are consistent with laceration. Vascular: Visualized vascular structures appear normal in the absence of contrast. Bony vascular foramina and canals are intact. IMPRESSION: Extensive right-sided facial bone fractures are seen, including comminuted fractures right orbital floor and the anterior and posterior aguilar of the right maxillary sinus. Associated soft tissue swelling and soft tissue gas can be seen, which is consistent with laceration. Right intraorbital gas and soft tissue swelling can be seen, without trena entrapment of the extra-ocular muscles. Dictated by: Ankit Hills M.D. on 02/01/2021 at 10:48 Approved by: Ankit Hills M.D. on 02/01/2021 at 10:52
--- NOTE | 2021-02-01 11:08 | DI.CT.S_ITS ---
PROCEDURE: CT HEAD/BRAIN WO CON INDICATIONS: trip and fall on Plavix TECHNIQUE: Noncontrast 4.5 mm thick angled axial sections acquired from the foramen magnum to the vertex, with coronal and sagittal reformats. For radiation dose reduction, the following was used: automated exposure control, adjustment of mA and/or kV according to patient size. COMPARISON: [facility], CT, HEAD WITHOUT CONTRAST, 12/24/2012, 8:04. [facility], CT, HEAD WITHOUT CONTRAST, 01/18/2012, 15:48. [facility], CT, CT FACIAL BONES WO CON, 02/01/2021, 11:25. [facility], CT, CT CERVICAL SPINE WO CON, 02/01/2021, 11:25. [facility], CT, CT HEAD/BRAIN WO CON, 02/13/2020, 8:10. FINDINGS: Image quality: Excellent. CSF spaces: Basal cisterns are patent. No extra-axial fluid collections. The ventricles are symmetric in size and shape. Brain: No intracranial bleeds or masses. There is cerebral volume loss for age, with resultant ventricular and sulcal prominence. There are periventricular and deep white matter chronic small vessel ischemic changes. There is intracranial internal carotid artery atherosclerosis. Skull and face: Facial bone fractures are partially seen involving the right face. Tissue swelling is seen on the right, including right periorbital soft tissue swelling. Sinuses: Blood is seen within the right maxillary sinus and the right ethmoid air cells. No abnormal fluid is seen within the mastoid air cells. IMPRESSION: Right-sided facial bone fractures can be seen. Please see the accompanying facial bone CT. No acute intracranial process is seen. No acute intracranial hemorrhage is seen. Dictated by: Ankit Hills M.D. on 02/01/2021 at 10:44 Approved by: Ankit Hills M.D. on 02/01/2021 at 10:48
--- NOTE | 2021-02-01 11:18 | ED.HEATRA ---
HPI - Head Injury General Chief complaint: Head Injury Stated complaint: HEAD INJURY. FROM [facility] Time Seen by Provider: 02/01/21 11:18 Source: patient Mode of arrival: Ambulatory Limitations: no limitations History of Present Illness HPI Narrative: This a 70-year-old male who had a ground level fall after tripping and falling on his right side. He had his arm outstretched but also hit his right face. Patient developed swelling and bruising around the eye and has several small cuts adjacent. Patient states his pain has been present but fairly mild. He took a Melvin at home which was somewhat helpful but he feels like his pain also controlled at times with just Tylenol. He denies any pain with movement of his eye and feels like his eyes are moving normally. He denies any loss of consciousness. No headache. No neck or back pain. He has not any nausea or vomiting. He has not any new GI or urinary symptoms. He noticed little bit more tingling numbness sensation over the cheek on that side. He does have a history of slightly decreased mild of the right cheek secondary to prior stroke. Patient is on Plavix daily. He also takes medication for hypertension, dyslipidemia and diabetes. Patient denies any allergies to medications. Related Data Home Medications Medication Instructions Recorded Confirmed amlodipine 10 mg PO BEDTIME 09/30/19 02/01/21 clopidogrel 75 mg PO DAILY 09/30/19 02/01/21 duloxetine 30 mg PO BEDTIME 09/30/19 02/01/21 metformin [Glucophage] 1,000 mg PO BIDCC 09/30/19 02/01/21 tamsulosin [Flomax] 0.12 mg PO QDAY 09/30/19 02/01/21 atorvastatin [Lipitor] 20 mg PO BEDTIME 02/13/20 02/01/21 Previous Rx's Medication Instructions Recorded lisinopril 20 mg PO QDAY #90 tab 09/07/18 baclofen 20 mg tablet See Rx Instructions .ROUTE 02/04/19 .COMPLEX #270 tab clonazepam 1 mg tablet 0.5 mg PO HS #30 tab 04/24/19 albuterol sulfate 90 mcg/actuation 1 puff INHALATION PRN PRN #18 12/03/19 aerosol inhaler inhalation pantoprazole 40 mg PO BID #60 tab 09/11/20 amoxicillin-pot clavulanate 1 tab PO Q12H #20 tab 02/01/21 [Augmentin] hydrocodone-acetaminophen 1 tab PO Q6H PRN #7 tab 02/01/21 hydrocodone-acetaminophen 1 tab PO QID PRN #10 tab 02/01/21 Allergies Allergy/AdvReac Type Severity Reaction Status Date / Time No Known Drug Allergies Allergy Verified 02/01/21 10:55 Review of Systems Review of Systems ROS Unobtainable: All systems reviewed & are unremarkable except as noted in HPI and below Patient History Medical History Adopted Anxiety BPH (benign prostatic hyperplasia) Cervical myelopathy (11/16/17) Cervical stenosis of spinal canal Claustrophobia Depression Easy bruisability Essential hypertension (07/14/14) Iron deficiency (07/31/17) Mixed hyperlipidemia (01/24/12) Myelopathy Panic disorder Poor sleep 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/spiritism: Roman Catholic travel history: recurrent ([place] every 1-2 years.) leisure activities: reading and other (Gardening) Smoking Status: Former smoker Tobacco: How many years used: 40 Smokeless tobacco user: other (Cigarettes) quit status: quit date established (2005) second hand exposure: No alcohol intake: current substance use type: does not use Smoking Status: Former smoker alcohol intake frequency: holidays/special occasions only Substance Use Type: does not use Exam Narrative Exam Narrative: GEN: Patient appears in mild distress. HEAD: See below, no raccoon/Obrien sign. NECK: Nontender, painless range of motion, trachea midline Negative Nexus criteria, there is no mid line tenderness, distracting injury, altered mental status, neuro deficit, recent EtOH. EYES: PERRLA, EOMI Visual acuity: Right 20/50, left is 20/30. Both are 20/40. IOP: Right 21 mm Hg, Left 21 mm Hg General: no globe trauma Eyelids: See above. Conjunctiva/Sclera: normal inspection on the left, on the right patient has subconjunctival hemorrhage. Corneas: normal inspection, examined with fluroscein on right with no uptake. EOM: intact, no palsy/entrapment Pupils: PERRL, normal accomadation, pupil normal Anterior Chambers: normal inspection, no hypema Posterior: normal fundoscopic on right ENT: Patient has periorbital ecchymosis and swelling of the right eye, there is no obvious depression although patient does have swelling of the right cheek as well, patient also has 3 small very superficial appearing lacerations over the right orbital wall as well as right cheek, trachea is midline, TM's are normal no hemotypanum, Nares are clear, no septal hematoma, no dental or oral injury, airway is normal and with normal occlusion, No bony tenderness RESP: Chest is nontender and has symmetric movement, no ecchymosis, breath sounds are normal no crackles, wheezes or rales CVS: Heart sounds are normal, no murmur noted, No JVD. ABG/GI: Nontender, soft, normal bowel sounds, no distention, no organomegaly, pelvic rock is negative NEURO: Oriented AOx3, neuro is grossly intact, sensation and motor is normal all 4 extremities moving, cranial nerves II through XII are intact, GCS is 15 PSYCH: Normal mood and affect SKIN: Intact other than above, warm and dry, no crepitus and without decubitus BACK: No CVA tenderness, no vertebral tenderness, no step-off's, no crepitus EXT: Atraumatic, hips are nontender, no pedal edema, normal color and temperature, normal range of motion of extremities with normal tendon exam, 2+ pulses in all four extremities Initial Vital Signs Initial Vital Signs: Vital Signs Pulse Rate 59 L 02/01/21 10:47 Blood Pressure 136/63 02/01/21 10:47 Pulse Oximetry 92 02/01/21 10:47 Scores GCS Barbra coma scale eye opening: Spontaneous Barbra coma scale verbal response: Orientated Barbra coma scale motor response: Obey commands Sanford coma scale total score: 15 Course Orders Ordered: Discontinued Medications Hydrocodone Bitart/Acetaminophen (Hydrocodone/Acet 5/325 Tablet) 1 tab PO NOW ONE Stop: 02/01/21 13:22 Last Admin: 02/01/21 14:24 Dose: 1 tab Documented by: RALPH Amoxicillin/Clavulanate Potassium (Amoxicillin/Clav 875/125 Mg) 1 tab PO NOW ONE Stop: 02/01/21 14:54 Last Admin: 02/01/21 15:16 Dose: 1 tab Documented by: LUISA Fluorescein Sodium (Fluorescein 1 Mg Strip) 1 mg EYE-BOTH NOW ONE Stop: 02/01/21 14:05 Last Admin: 02/01/21 14:33 Dose: 1 mg Documented by: ANNIE Proparacaine HCl (Proparacaine 0.5% Ophth Clarice) 1 drops EYE-BOTH NOW ONE Stop: 02/01/21 13:47 Last Admin: 02/01/21 14:32 Dose: 1 drop Documented by: ANNIE Consultations Consultation #1: Dr. Yoan Mendoza from ENT does recommend with patient's CT changes that may benefit from following up with Ophthalmology the [facility]. Time: 13:17 Consultation #2: Dr. Smith with craniofacial plastics at [facility]. Recommends For follow up at [facility]. Recommends sinus precautions follow-up with outpatient before cranial fascial plastics for surgical clearance and then they will set patient up for open reduction in the OR. Patient can follow-up in the next week. They do recommend antibiotics and feel that Augmentin would be appropriate. Time: 14:46 Consultation #3: Dr. Resendiz, from optho at [facility]. They will see same day prior to ENT/Craniofacial plastics. Will be coordinated for patient. Questions answered. Vital Signs Vital signs: Vital Signs - 8 hr 02/01/21 14:30 02/01/21 15:00 02/01/21 15:36 Pulse Rate 64 68 68 Respiratory Rate 18 Blood Pressure 137/64 127/66 171/79 H Pulse Oximetry 94 93 96 MDM - Head Injury Imaging Data CT scan - head: Radiologist's Impression: Sherwin Sparks 70 M [address] [id number] Scan ReportSigned Patient: Sherwin Sparks LMR#: [id number]: 1950Acct:[id number]/Sex: 70 / MDate of Service: 02/01/21Loc: EDAccession Number: [id number] Procedure: CT head/brain wo con Ordering Provider: Corinna Hawk D.O. PROCEDURE: CT HEAD/BRAIN WO CON INDICATIONS: trip and fall on Plavix TECHNIQUE: Noncontrast 4.5 mm thick angled axial sections acquired from the foramen magnum to the vertex, with coronal and sagittal reformats. For radiation dose reduction, the following was used: automated exposure control, adjustment of mA and/or kV according to patient size. COMPARISON: [facility], CT, HEAD WITHOUT CONTRAST, 12/24/2012, 8:04. [facility], CT, HEAD WITHOUT CONTRAST, 01/18/2012, 15:48. [facility], CT, CT FACIAL BONES WO CON, 02/01/2021, 11:25. [facility], CT, CT CERVICAL SPINE WO CON, 02/01/2021, 11:25. [facility], CT, CT HEAD/BRAIN WO CON, 02/13/2020, 8:10. FINDINGS: Image quality: Excellent. CSF spaces: Basal cisterns are patent. No extra-axial fluid collections. The ventricles are symmetric in size and shape. Brain: No intracranial bleeds or masses. There is cerebral volume loss for age, with resultant ventricular and sulcal prominence. There are periventricular and deep white matter chronic small vessel ischemic changes. There is intracranial internal carotid artery atherosclerosis. Skull and face: Facial bone fractures are partially seen involving the right face. Tissue swelling is seen on the right, including right periorbital soft tissue swelling. Sinuses: Blood is seen within the right maxillary sinus and the right ethmoid air cells. No abnormal fluid is seen within the mastoid air cells. IMPRESSION: Right-sided facial bone fractures can be seen. Please see the accompanying facial bone CT. No acute intracranial process is seen. No acute intracranial hemorrhage is seen. Dictated by: Ankit Hills M.D. on 02/01/2021 at 10:44 Approved by: Ankit Hills M.D. on 02/01/2021 at 10:48 CT - cervical spine: Radiologist's Impression: Sherwin Sparks M [address] [id number] Scan ReportSigned Patient: Sherwin Sparks LMR#: [id number]: 1950Acct:[id number]/Sex: 70 / MDate of Service: 02/01/21Loc: EDAccession Number: [id number] Procedure: CT cervical spine wo con Ordering Provider: Corinna Hawk D.O. PROCEDURE: CT CERVICAL SPINE WO CON INDICATIONS: trip and fall on Plavix TECHNIQUE: Noncontrast 3 mm thick sections acquired from the skull base to the T4 level. Sagittal and coronal reformats were then constructed. For radiation dose reduction, the following was used: automated exposure control, adjustment of mA and/or kV according to patient size. COMPARISON: [facility], MR, C-SPINE WITHOUT CONTRAST, 11/16/2017, 7:08. [facility], CT, CT FACIAL BONES WO CON, 02/01/2021, 11:25. [facility], CT, CT HEAD/BRAIN WO CON, 02/01/2021, 11:25. FINDINGS: Image quality: Excellent. Bones: No fractures or dislocations. Visualized superior ribs are intact. Extensive cervical spine postoperative changes are seen, with removal of prominent portions of the 3rd through 6th vertebral bodies, with placement of a fibular graft anteriorly. There is ossification of the posterior longitudinal ligament posteriorly. Flowing bridging anterior osteophytes can be seen anteriorly, including involving the visualized thoracic spine. Soft tissues: Prevertebral soft tissues are normal in thickness. No paravertebral hematomas. No apical pneumothoraces. Calcified mediastinal and perihilar lymph nodes can be seen. IMPRESSION: No acute fractures are seen. Extensive cervical spine postoperative change. Ossification of the posterior longitudinal ligament. Underlying diffuse idiopathic skeletal hyperostosis (DISH) is suspected. Dictated by: Ankit Hilsl M.D. on 02/01/2021 at 10:53 Approved by: Ankit Hills M.D. on 02/01/2021 at 10:[address]: Radiologist's Impression: [address] [id number] Scan ReportSigned Patient: Sherwin Sparks LMR#: [id number]: 1950Acct:[id number]/Sex: 70 / MDate of Service: 02/01/21Loc: EDAccession Number: [id number] Procedure: CT facial bones wo con Ordering Provider: Corinna Hawk D.O. PROCEDURE: CT FACIAL BONES WO CON INDICATIONS: trip and fall on Plavix TECHNIQUE: Noncontrast 2.5 mm thick axial images acquired from the mandible through the frontal sinuses, with coronal and sagittal reformatting. For radiation dose reduction, the following was used: automated exposure control, adjustment of mA and/or kV according to patient size. COMPARISON: [facility], CT, CT HEAD/BRAIN WO CON, 02/13/2020, 8:10. [facility], CT, CT HEAD/BRAIN WO CON, 02/01/2021, 11:25. [facility], CT, CT CERVICAL SPINE WO CON, 02/01/2021, 11:25. FINDINGS: Image quality: Excellent. Bones and teeth: Right-sided facial bone fractures are seen, with a fracture of the right lateral orbital wall and the right orbital floor. There is a mildly displaced fracture of the right zygomatic arch. Comminuted fractures can be seen involving the anterior and lateral aguilar of the right maxillary sinus. Visualized portions of the mandible demonstrate no fractures or subluxation. Pterygoid plates are intact. Visualized portions of the skull base and auditory canals are intact. Sinuses: Blood can be seen within the right maxillary sinus and the right ethmoid air cells. Soft tissues: A small amount intraorbital soft tissue swelling and gas can be seen involving the inferior right orbit. No trena findings extraocular muscle entrapment can be seen. Soft tissue swelling can be seen involving the right face. Right periorbital soft tissue swelling is seen. Bubbles of gas can be seen, which are consistent with laceration. Vascular: Visualized vascular structures appear normal in the absence of contrast. Bony vascular foramina and canals are intact. IMPRESSION: Extensive right-sided facial bone fractures are seen, including comminuted fractures right orbital floor and the anterior and posterior aguilar of the right maxillary sinus. Associated soft tissue swelling and soft tissue gas can be seen, which is consistent with laceration. Right intraorbital gas and soft tissue swelling can be seen, without trena entrapment of the extra-ocular muscles. Dictated by: Ankit Hills M.D. on 02/01/2021 at 10:48 Approved by: Ankit Hills M.D. on 02/01/2021 at 10:52 [facility] Narrative Medical decision making narrative: 70-year-old male comes with a fall on Monday, 2 days prior. Was a mechanical ground level fall patient fell forwards with his arm outstretched. No pain in his wrist but does have multiple facial and orbital wall fractures of no additional injuries noted. This was reviewed with ENT locally and then ENT/ cranial facial plastics as well as Ophthalmology at [facility]. Sinus precautions for patient. Patient and comfortable with the plan. Discharge Plan Departure Patient Disposition: Home Clinical Impression: Fracture of orbital wall, Fracture of right zygomatic arch, Fracture of maxillary sinus Instructions: DI for Facial Fracture Activity Restrictions/Additional Instructions: Follow up with Ophthalmology at [facility]. They will call to set up follow-up for you this week. Please watch for an unknown number and call back if he miss their phone call. Take antibiotics until completely gone or if the surgical subspecialist tell you to stop. Prescription was sent to [facility] in [place]. You may take Tylenol up to a 1000 mg every 8 hours as needed. Or you may take you may take Melvin 1 tablet every 6 hours as needed for nausea or vomiting. Your maximum Tylenol or acetaminophen is 3000 mg total in 24 hours. Both Tylenol and Melvin have Tylenol within the period Narcotics can make you sleepy do not drive, perform hazardous activities or make any major decisions while taking it. This medication will make you constipated please take a stool softener once to twice daily until stools are soft and regular. Please return for fevers, rapidly worsening headache, facial pain, swelling, redness, new facial droop, weakness or difficulty with movement, nausea vomiting, new back or neck pain, new numbness tingling or weakness in her extremities or other new or concerning symptoms. SINUS PRECAUTIONS: As noted above, the main issue to be avoided is increasing pressure across the sinuses. Here?s the usual list of precautions, and my comments on their utility. Avoid blowing your nose. Avoid sneezing. Do not drink through a straw. Do not smoke. Do not blow musical instruments, balloons, ect. Do not push or lift heavy objects. Do not bend over, keep your head above your heart, sleep with your head slightly elevated. Do not fly in a plane. Do not spit. Prescriptions: New amoxicillin-pot clavulanate [Augmentin] 875-125 mg tablet 1 tab PO Q12H Qty: 20 RF: 0 hydrocodone-acetaminophen 5-325 mg tablet 1 tab PO QID PRN (Reason: pain) Qty: 10 RF: 0 hydrocodone-acetaminophen 5-325 mg tablet 1 tab PO Q6H PRN (Reason: pain) Qty: 7 RF: 0 No Action lisinopril 20 mg tablet 20 mg PO QDAY Qty: 90 RF: 3 baclofen 20 mg tablet See Rx Instructions .ROUTE .COMPLEX Qty: 270 RF: 3 clonazepam 1 mg tablet 0.5 mg PO HS Qty: 30 RF: 3 albuterol sulfate [Ventolin HFA] 90 mcg/actuation HFA aerosol inhaler 1 puff INHALATION PRN PRN (Reason: bronchospasm) Qty: 18 RF: 3 amlodipine 5 mg Tablet 10 mg PO BEDTIME RF: 0 duloxetine 30 mg Capsule,Delayed Release(Dr/Ec) 30 mg PO BEDTIME RF: 0 metformin [Glucophage] 500 mg tablet 1,000 mg PO BIDCC RF: 0 clopidogrel 75 mg tablet 75 mg PO DAILY RF: 0 tamsulosin [Flomax] 0.4 mg capsule 0.12 mg PO QDAY RF: 0 atorvastatin [Lipitor] 20 mg tablet 20 mg PO BEDTIME RF: 0 pantoprazole 40 mg tablet,delayed release (DR/EC) 40 mg PO BID Qty: 60 RF: 6 Referrals: Elton Dang MD [Primary Care Provider] -
[2021-02-01] MEDS: HYDROCODONE/ACET 5/325 TABLET 1 TAB PO (14:24)
[2021-02-01] MEDS: PROPARACAINE 0.5% OPHTH SOL 1 DROPS EYE-BOTH (14:32)
[2021-02-01] MEDS: FLUORESCEIN 1 MG STRIP EYE-BOTH (14:33)
[2021-02-01] MEDS: AMOXICILLIN/CLAV 875/125 MG 1 TAB PO (15:16)
== END 2021-02-01 15:36 | disposition home or self-care (01) ==
PROVIDERS: Emergency Provider Emergency Medicine; PCP Family Medicine
DX: S02.85XA Fracture of orbit, unspecified, initial encounter for closed fracture (principal); S02.40EA Zygomatic fracture, right side, initial encounter for closed fracture; S02.401A Maxillary fracture, unspecified side, initial encounter for closed fracture; W19.XXXA Unspecified fall, initial encounter
CPT/HCPCS: 70450; 70486; 72125; 99285

== ENCOUNTER → 2021-08-16 10:49 | Outpatient (CLI) | payer OTHER, SELFPAY ==
[2020-02-13 13:21] VITALS: BMI 36.6
[2021-08-16 15:50] LABS: Prostate Specific Antigen 12.7 ng/mL (0.10-4.00)
== END ==
PROVIDERS: PCP Family Medicine; Referring Provider Urology; Visit Provider Urology
DX: R97.20 Elevated prostate specific antigen [PSA] (principal)
CPT/HCPCS: 36415; 84153

== ENCOUNTER → 2022-04-29 12:57 | Outpatient (CLI) | payer OTHER, SELFPAY ==
[2020-02-13 13:21] VITALS: BMI 36.6
[2022-04-29 13:28] LABS: Add Manual Diff / Slide Review NO; Basophils Absolute Auto 100 /uL (0-100); Basophils Percent Auto 0.8 % (0-2); Eosinophils Absolute Auto 200 /uL (0-450); Eosinophils Percent Auto 2.3 % (2-4); Hematocrit 37.8 % (41-53); Hemoglobin 12.6 g/dL (13.5-17.5); Lymphocytes Absolute Auto 2100 /uL (1100-4500); Lymphocytes Percent Auto 26.9 % (25-40); Mean Corpuscular HGB Conc 33.2 % (30-36); Mean Corpuscular Hemoglobin 28.5 PG (26-34); Mean Corpuscular Volume 85.7 fL (80-100); Monocytes Absolute Auto 600 /uL (0-900); Monocytes Percent Auto 7.3 % (3-14); Neutrophils Absolute Auto 4900 /uL (1500-7000); Neutrophils Percent Auto 62.7 % (50-75); Platelet Count 205 X10^3/uL (150-400); Red Blood Cell Count 4.41 X10^6/uL (4.5-5.9); Red Cell Distribution Width 16.4 % (11.6-14.8); White Blood Cell Count 7.8 X10^3/uL (4.5-11.0)
[2022-04-29 13:43] LABS: Alanine Aminotransferase 16 IU/L (<50); Albumin 3.7 g/dL (3.5-5.0); Albumin Globulin Ratio 1.2 (1.0-2.8); Alkaline Phosphatase 79 U/L (38-126); Aspartate Aminotransferase 20 IU/L (17-59); BUN Creatinine Ratio 17.4 (6-22); Bilirubin Total 0.7 mg/dL (0.2-1.3); Blood Urea Nitrogen 21 mg/dL (9-20); Calcium 8.6 mg/dL (8.4-10.2); Carbon Dioxide 27 mmol/L (22-32); Chloride 104 mmol/L (98-107); Estimated Glomerular Filt Rate > 60 mL/min (>60); Glucose 209 mg/dL (80-110); HEMOLYSIS < 15 (0-50); Potassium 4.6 mmol/L (3.4-5.1); Sodium 138 mmol/L (137-145); Total Protein 6.7 g/dL (6.3-8.2)
== END ==
PROVIDERS: PCP Family Medicine; Referring Provider Family Medicine; Visit Provider Family Medicine
DX: R55 Syncope and collapse (principal); D64.9 Anemia, unspecified
CPT/HCPCS: 36415; 80053; 85025

== ENCOUNTER → 2022-12-16 09:30 | Outpatient (CLI) | payer OTHER, SELFPAY ==
[2020-02-13 13:21] VITALS: BMI 36.6
[2022-12-16 10:42] LABS: Add Manual Diff / Slide Review NO; Basophils Absolute Auto 100 /uL (0-100); Basophils Percent Auto 0.8 % (0-2); Eosinophils Absolute Auto 200 /uL (0-450); Eosinophils Percent Auto 2.8 % (2-4); Hematocrit 38.5 % (41-53); Hemoglobin 12.6 g/dL (13.5-17.5); Lymphocytes Absolute Auto 1500 /uL (1100-4500); Lymphocytes Percent Auto 21.8 % (25-40); Mean Corpuscular HGB Conc 32.8 % (30-36); Mean Corpuscular Hemoglobin 28.1 PG (26-34); Mean Corpuscular Volume 85.8 fL (80-100); Monocytes Absolute Auto 500 /uL (0-900); Monocytes Percent Auto 7.4 % (3-14); Neutrophils Absolute Auto 4600 /uL (1500-7000); Neutrophils Percent Auto 67.2 % (50-75); Platelet Count 178 X10^3/uL (150-400); Red Blood Cell Count 4.49 X10^6/uL (4.5-5.9); Red Cell Distribution Width 15.6 % (11.6-14.8); White Blood Cell Count 6.8 X10^3/uL (4.5-11.0)
[2022-12-16 11:10] LABS: Alanine Aminotransferase 16 IU/L (<50); Albumin 3.7 g/dL (3.5-5.0); Albumin Globulin Ratio 1.3 (1.0-2.8); Alkaline Phosphatase 91 U/L (38-126); Aspartate Aminotransferase 18 IU/L (17-59); BUN Creatinine Ratio 19.4 (6-22); Bilirubin Total 0.8 mg/dL (0.2-1.3); Blood Urea Nitrogen 20 mg/dL (9-20); Calcium 8.7 mg/dL (8.4-10.2); Carbon Dioxide 32 mmol/L (22-32); Chloride 102 mmol/L (98-107); Cholesterol 174 mg/dL (140-199); Estimated Glomerular Filt Rate > 60 mL/min (>60); Globulin 2.8 g/dL (1.7-4.1); Glucose 128 mg/dL (80-110); HDL Cholesterol 50 mg/dL (40-60); HEMOLYSIS < 15 (0-50); LDL Cholesterol Calculated 102 mg/dL (<100); Potassium 4.8 mmol/L (3.4-5.1); Sodium 140 mmol/L (137-145); Total Protein 6.5 g/dL (6.3-8.2); Triglycerides 110 mg/dL (35-150)
[2022-12-16 11:36] LABS: Prostate Specific Antigen Scrn 14.4 ng/mL (0.1-4.0)
[2022-12-16 11:41] LABS: Creatinine Urine Random 116.5 mg/dL
[2022-12-16 11:54] LABS: Microalbumin Urine Random < 0.6 mg/dL (0-1.6)
[2022-12-17 06:08] LABS: Labcorp Hemoglobin (Hb) A1c 7.5 % (4.8-5.6)
== END ==
PROVIDERS: PCP Family Medicine; Referring Provider Family Medicine; Visit Provider Family Medicine
DX: I10 Essential (primary) hypertension (principal); E11.65 Type 2 diabetes mellitus with hyperglycemia; E78.00 Pure hypercholesterolemia, unspecified; N40.1 Benign prostatic hyperplasia with lower urinary tract symptoms; R35.1 Nocturia
CPT/HCPCS: 36415; 80053; 80061; 82043; 82570; 83036; 84153; 84154; 85025; G0103

== ENCOUNTER 2023-04-05 10:30 | Outpatient (RCR) | payer OTHER, SELFPAY ==
[2020-02-13 13:21] VITALS: BMI 36.6
--- NOTE | 2023-02-07 12:18 | PT.OIE ---
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) Recurrent major depressive disorder, in full remission RLS (restless legs syndrome) Shortness of breath Type 2 diabetes mellitus without complication Undescended testicle of both sides Past Surgical History (Last Reviewed 02/01/21 @ 13:16 by Corinna Hawk DO) History of spinal fusion Visit Care Team Role Provider Type Elton Dang MD Attending Provider Non-Staff Family Provider Primary Care Provider Referring Provider Specialty: Family Practice Address: [address] [place] [address], [address], [place], [address] Email: Physical Therapy Initial Evaluation PT-OP-A Visit Information Start: 02/07/23 10:07 Freq: Status: Active Protocol: Document 02/07/23 10:08 ES (Rec: 02/07/23 11:01 ES [id number]) Out-Patient Physical Therapy Visit Information Visit Information Visit Type Initial Evaluation Visit Start Time 10:08 Visit Stop Time 10:52 Total Visit Minutes 44 Visit Number 1 PT-OP-B Current Condition Start: 02/07/23 10:07 Freq: Status: Active Protocol: Document 02/07/23 10:08 ES (Rec: 02/07/23 11:01 ES [id number]) Current Condition History of Current Condition Current Complaints Decreased balance, falls History of Current Condition Patient reports that he has had multiple falls in the past . He has a hx of R knee giving out causing falls before. Last year he fell while walking on uneven ground and hit his head on the ground. His eye socket hit the edge of a stone and ended up with fractured eye socket. Has trouble looking down because he has limited neck ROM due to hx of neck fusion and has stenosis. Had back surgery in 2021 and was sedentary because of that, knows his core is quite weak. Had a stroke about 5 years ago that caused swallowing problems. Denies weakness in arms/legs. Uses a hurrycane more and more lately , particularly on longer walks and in the community. Has trouble walking long distances on concrete; feels like the legs are going to give out, so uses a cane for that which helps. Has neuropathy in both feet. Would like to start going to the senior center for exercise classes again. Future Testing and Treatments Planned Has ENT appt coming up for a L ear issue with popping/ hearing difficulty with associated balance difficulty when it's present. Treatment Goals Patient/Caregiver Goals To not fall down, to be able to get pants without falling over or having to hold onto something. Prior Functional Status Baseline Function- Recreation/Hobbies Used to hike a lot to take photographs. Used to work in the garden for as long as he wanted. Current Functional Impairments (Reported) Functional Limitations- ADL's Difficulty putting pants on. Functional Limitations- Mobility/Gait Limited to less than a mile walking, uses a cane. Functional Limitations- Recreation/ Limited to 2 hours of Hobbies gardening and has trouble getting down and back up from the ground. PT-OP-C Subjective Start: 02/07/23 10:07 Freq: Status: Active Protocol: Document 02/07/23 10:08 ES (Rec: 02/07/23 11:01 ES [id number]) Patient Questionnaires ABC- Activity Specific Balance Confidence Scale ABC Score 87.5 ABC Functional Impairment 1 to <20% Impaired (Score 81- 99) PT-OP-D Balance Start: 02/07/23 10:07 Freq: Status: Active Protocol: Document 02/07/23 10:08 ES (Rec: 02/07/23 11:01 ES [id number]) Balance Tests Manuel Balance Test Manuel Balance Test Score 46 Manuel Impairment Rating 1 to 19% Impaired (Score 45-55 ) Single Limb Standing Single Limb- Right 0 Single Limb- Left 2 Tandem Tandem Standing 0 PT-OP-E Functional Tests Start: 02/07/23 10:07 Freq: Status: Active Protocol: Document 02/07/23 10:08 ES (Rec: 02/07/23 11:01 ES [id number]) Functional Tests 6 Minute Walk Test Distance 1178 ft Device Used None Comments Average for age/gender = 1729 ft 30 Second Sit to Stand Test Score 4 Comments Average for age/gender = 12-17 PT-OP-G Mobility & Gait Start: 02/07/23 10:07 Freq: Status: Active Protocol: Document 02/07/23 10:08 ES (Rec: 02/07/23 11:01 ES [id number]) OP Gait Assessment Comments Gait Comments Ambulates with trunk leaning forward and shifted to L, decreased heel-toe pattern and foot clearance, decreased arm swing, and decreased stride length. Turns whole body to look side to side due to limited neck ROM. PT-OP-T Assessment and Plan Start: 02/07/23 10:07 Freq: Status: Active Protocol: Document 02/07/23 10:08 ES (Rec: 02/07/23 11:01 ES [id number]) Physical Therapy Assessment Rehab Potential Rehabilitation Potential Fair Evaluation Complexity Number of Personal Factors/Comorbidities 3 or More Number of Body Systems Impaired 3 Clinical Presentation at Evaluation Evolving Impairments Impairments Activity Tolerance,Balance, Functional Activities, Functional Mobility,Gait,Pain, Posture,Sensation,Strength Goals 4 Impairment Balance Short Term Goal (STG) Patient will be able to perform SLS for at least 10 sec B. STG Duration 4 weeks (03/07/23) Half-Way Goal (LTG) Patient will be able to don pants in standing without LOB with HOWIE support. LTG Duration 8 weeks (04/04/23) 3 Impairment Gait Short Term Goal (STG) Patient will improve 6MWT to at least 1378 ft without AD indicating clinically signficant change in functional mobility tolerance. STG Duration 4 weeks (03/07/23) Admitting Supervisor Goal (LTG) Patient will be able to walk on uneven ground with LRAD ( cane vs trekking poles) for at least 1 mile without LOB. LTG Duration 8 weeks (04/04/23) 2 Impairment Balance Half-Way Goal (LTG) Patient will improve Manuel balance score to 50 indicating low risk for falls. LTG Duration 8 weeks (04/04/23) 1 Impairment Strength Short Term Goal (STG) Patient will be able to perform 7 STS in 30 seconds indicating increased functional strength. STG Duration 4 weeks (03/07/23) Assessment Summary Assessment Patient is a 72 year old male referred to PT for impaired gait and balance with hx of multiple falls. He presents with decreased functional strength, decreased balance, limited lumbar and cervical ROM, and decreased sensation due to neuropathy. He is functionally limited in his ability to don pants, walk on uneven ground or long distances requiring use of cane, and participate in yardwork/gardening. He tested below average on balance and gait testing, and his scores place him at increased risk for falls. He will benefit from PT to address these problems in order to increase independence and safety with functional activity and community ambulation and decrease his risk of falls, with the goal of transitioning to community-based fitness program and home program when appropriate. Physical Therapy Plan Frequency and Duration Frequency of Treatment 2x/Week Duration of treatment (weeks) 8 Plan of Care Start Date 02/07/23 Plan of Care End Date 04/04/23 Therapeutic Interventions Therapeutic Interventions Balance Training,Gait Training ,Home Exercise Program, Neuromuscular Re-education, Patient/Caregiver Education, Self-Care/Home Management, Therapeutic Activities, Therapeutic Exercises Next Visit Focus/Plan Next Note Type Treatment Note Next Visit Plan Functional strengthening, balance training.
--- NOTE | 2023-02-07 12:19 | PT.OPPOC ---
Physical, Occupational & Speech Therapy At [facility] Current Diagnoses Other abnormalities of gait and mobility (02/07/23) Repeated falls (02/07/23) Visit Care Team Role Provider Type Elton Dang MD Attending Provider Non-Staff Family Provider Primary Care Provider Referring Provider Specialty: Family Practice Address: [address] [place] [address], Suite [facility], [place], [address] Email: Plan Of Care PT-OP-T Assessment and Plan Start: 02/07/23 10:07 Freq: Status: Active Protocol: Document 02/07/23 10:08 ES (Rec: 02/07/23 11:01 ES [id number]) Physical Therapy Assessment Rehab Potential Rehabilitation Potential Fair Evaluation Complexity Number of Personal Factors/Comorbidities 3 or More Number of Body Systems Impaired 3 Clinical Presentation at Evaluation Evolving Impairments Impairments Activity Tolerance,Balance, Functional Activities, Functional Mobility,Gait,Pain, Posture,Sensation,Strength Goals 4 Impairment Balance Short Term Goal (STG) Patient will be able to perform SLS for at least 10 sec B. STG Duration 4 weeks (03/07/23) Bus Company Manager Goal (LTG) Patient will be able to don pants in standing without LOB with HOWIE support. LTG Duration 8 weeks (04/04/23) 3 Impairment Gait Short Term Goal (STG) Patient will improve 6MWT to at least 1378 ft without AD indicating clinically signficant change in functional mobility tolerance. STG Duration 4 weeks (03/07/23) Snf Goal (LTG) Patient will be able to walk on uneven ground with LRAD ( cane vs trekking poles) for at least 1 mile without LOB. LTG Duration 8 weeks (04/04/23) 2 Impairment Balance Snf Goal (LTG) Patient will improve Manuel balance score to 50 indicating low risk for falls. LTG Duration 8 weeks (04/04/23) 1 Impairment Strength Short Term Goal (STG) Patient will be able to perform 7 STS in 30 seconds indicating increased functional strength. STG Duration 4 weeks (03/07/23) Assessment Summary Assessment Patient is a 72 year old male referred to PT for impaired gait and balance with hx of multiple falls. He presents with decreased functional strength, decreased balance, limited lumbar and cervical ROM, and decreased sensation due to neuropathy. He is functionally limited in his ability to don pants, walk on uneven ground or long distances requiring use of cane, and participate in yardwork/gardening. He tested below average on balance and gait testing, and his scores place him at increased risk for falls. He will benefit from PT to address these problems in order to increase independence and safety with functional activity and community ambulation and decrease his risk of falls, with the goal of transitioning to community-based fitness program and home program when appropriate. Physical Therapy Plan Frequency and Duration Frequency of Treatment 2x/Week Duration of treatment (weeks) 8 Plan of Care Start Date 02/07/23 Plan of Care End Date 04/04/23 Therapeutic Interventions Therapeutic Interventions Balance Training,Gait Training ,Home Exercise Program, Neuromuscular Re-education, Patient/Caregiver Education, Self-Care/Home Management, Therapeutic Activities, Therapeutic Exercises Next Visit Focus/Plan Next Note Type Treatment Note Next Visit Plan Functional strengthening, balance training. Plan of Care Dates Plan of Care Start Date 02/07/23 Plan of Care End Date 04/04/23 Electronically Signed by: Fela Tolliver, PT 02/07/23 4424 If you are in agreement with this Plan of Care, please return a signed and dated copy. I have reviewed this Plan of Care and certify that the skilled therapy services above are required to meet the patient?s needs. Physician Signature Date Printed Name and Credentials Clinical Instructor Signature Printed Name and Credentials
--- NOTE | 2023-02-14 12:30 | PT.OTN ---
Current Diagnoses Other abnormalities of gait and mobility (02/14/23) Repeated falls (02/14/23) Physical Therapy Treatment Note PT-OP-A Visit Information Start: 02/07/23 10:07 Freq: Status: Active Protocol: Document 02/14/23 11:51 ES (Rec: 02/14/23 12:30 ES [id number]) Out-Patient Physical Therapy Visit Information Visit Information Visit Type Treatment Note Visit Start Time 11:50 Visit Stop Time 12:26 Total Visit Minutes 36 Visit Number 2 PT-OP-B Current Condition Start: 02/07/23 10:07 Freq: Status: Active Protocol: Document 02/07/23 10:08 ES (Rec: 02/07/23 11:01 ES [id number]) Current Condition History of Current Condition Current Complaints Decreased balance, falls History of Current Condition Patient reports that he has had multiple falls in the past . He has a hx of R knee giving out causing falls before. Last year he fell while walking on uneven ground and hit his head on the ground. His eye socket hit the edge of a stone and ended up with fractured eye socket. Has trouble looking down because he has limited neck ROM due to hx of neck fusion and has stenosis. Had back surgery in 2021 and was sedentary because of that, knows his core is quite weak. Had a stroke about 5 years ago that caused swallowing problems. Denies weakness in arms/legs. Uses a hurrycane more and more lately , particularly on longer walks and in the community. Has trouble walking long distances on concrete; feels like the legs are going to give out, so uses a cane for that which helps. Has neuropathy in both feet. Would like to start going to the senior center for exercise classes again. Future Testing and Treatments Planned Has ENT appt coming up for a L ear issue with popping/ hearing difficulty with associated balance difficulty when it's present. Treatment Goals Patient/Caregiver Goals To not fall down, to be able to get pants without falling over or having to hold onto something. Prior Functional Status Baseline Function- Recreation/Hobbies Used to hike a lot to take photographs. Used to work in the garden for as long as he wanted. Current Functional Impairments (Reported) Functional Limitations- ADL's Difficulty putting pants on. Functional Limitations- Mobility/Gait Limited to less than a mile walking, uses a cane. Functional Limitations- Recreation/ Limited to 2 hours of Hobbies gardening and has trouble getting down and back up from the ground. PT-OP-C Subjective Start: 02/07/23 10:07 Freq: Status: Active Protocol: Document 02/14/23 11:51 ES (Rec: 02/14/23 12:30 ES [id number]) OP-PT Subjective Patient Comments Patient Comments Patient reported he tried to do some of the balance stuff from last visit and it was hard to do at home. No falls since last visit. PT-OP-D Balance Start: 02/07/23 10:07 Freq: Status: Active Protocol: Document 02/07/23 10:08 ES (Rec: 02/07/23 11:01 ES [id number]) Balance Tests Manuel Balance Test Manuel Balance Test Score 46 Manuel Impairment Rating 1 to 19% Impaired (Score 45-55 ) Single Limb Standing Single Limb- Right 0 Single Limb- Left 2 Tandem Tandem Standing 0 PT-OP-E Functional Tests Start: 02/07/23 10:07 Freq: Status: Active Protocol: Document 02/07/23 10:08 ES (Rec: 02/07/23 11:01 ES [id number]) Functional Tests 6 Minute Walk Test Distance 1178 ft Device Used None Comments Average for age/gender = 1729 ft 30 Second Sit to Stand Test Score 4 Comments Average for age/gender = 12-17 PT-OP-G Mobility & Gait Start: 02/07/23 10:07 Freq: Status: Active Protocol: Document 02/07/23 10:08 ES (Rec: 02/07/23 11:01 ES [id number]) OP Gait Assessment Comments Gait Comments Ambulates with trunk leaning forward and shifted to L, decreased heel-toe pattern and foot clearance, decreased arm swing, and decreased stride length. Turns whole body to look side to side due to limited neck ROM. PT-OP-Q Treatments Start: 02/07/23 10:07 Freq: Status: Active Protocol: Document 02/14/23 11:51 ES (Rec: 02/14/23 12:30 ES [id number]) Cardio Equipment Recumbent Stepper (Sci-Fit) Duration (Minutes) 8 Resistance 2.0 Seat Position 7 Therapeutic Exercises Sitting Exercises STS Reps/Minutes 2x15 Comments Instructed for HEP Standing Exercises Sidestep Side bilateral Resistance L2 band at knees Reps/Minutes 2x15 Comments Instructed for HEP Step up Side bilateral Equipment Used 6 step Reps/Minutes 2x15 Comments Instructed for HEP Heel toe raises Side bilateral Reps/Minutes 2x15 Comments Instructed for HEP PT-OP-T Assessment and Plan Start: 02/07/23 10:07 Freq: Status: Active Protocol: Document 02/14/23 11:51 ES (Rec: 02/14/23 12:30 ES [id number]) Physical Therapy Assessment Goals 4 Impairment Balance Short Term Goal (STG) Patient will be able to perform SLS for at least 10 sec B. STG Duration 4 weeks (03/07/23) Momd Teacher Goal (LTG) Patient will be able to don pants in standing without LOB with HOWIE support. LTG Duration 8 weeks (04/04/23) 3 Impairment Gait Short Term Goal (STG) Patient will improve 6MWT to at least 1378 ft without AD indicating clinically signficant change in functional mobility tolerance. STG Duration 4 weeks (03/07/23) Momd Teacher Goal (LTG) Patient will be able to walk on uneven ground with LRAD ( cane vs trekking poles) for at least 1 mile without LOB. LTG Duration 8 weeks (04/04/23) 2 Impairment Balance Momd Teacher Goal (LTG) Patient will improve Manuel balance score to 50 indicating low risk for falls. LTG Duration 8 weeks (04/04/23) 1 Impairment Strength Short Term Goal (STG) Patient will be able to perform 7 STS in 30 seconds indicating increased functional strength. STG Duration 4 weeks (03/07/23) Assessment Summary Assessment Patient tolerated ex's with fatigue but no increase in pain. Attempted SLS but too difficult to do, demonstrating hip drop and needing a lot of UE support. He will benefit from further strengthening to be able to perform balance activities with less UE support.
--- NOTE | 2023-02-21 10:50 | PT.OTN ---
Current Diagnoses Other abnormalities of gait and mobility (02/21/23) Repeated falls (02/21/23) Physical Therapy Treatment Note PT-OP-A Visit Information Start: 02/07/23 10:07 Freq: Status: Active Protocol: Document 02/21/23 10:05 ES (Rec: 02/21/23 10:50 ES [id number]) Out-Patient Physical Therapy Visit Information Visit Information Visit Type Treatment Note Visit Start Time 10:05 Visit Stop Time 10:46 Total Visit Minutes 41 Visit Number 3 PT-OP-B Current Condition Start: 02/07/23 10:07 Freq: Status: Active Protocol: Document 02/07/23 10:08 ES (Rec: 02/07/23 11:01 ES [id number]) Current Condition History of Current Condition Current Complaints Decreased balance, falls History of Current Condition Patient reports that he has had multiple falls in the past . He has a hx of R knee giving out causing falls before. Last year he fell while walking on uneven ground and hit his head on the ground. His eye socket hit the edge of a stone and ended up with fractured eye socket. Has trouble looking down because he has limited neck ROM due to hx of neck fusion and has stenosis. Had back surgery in 2021 and was sedentary because of that, knows his core is quite weak. Had a stroke about 5 years ago that caused swallowing problems. Denies weakness in arms/legs. Uses a hurrycane more and more lately , particularly on longer walks and in the community. Has trouble walking long distances on concrete; feels like the legs are going to give out, so uses a cane for that which helps. Has neuropathy in both feet. Would like to start going to the senior center for exercise classes again. Future Testing and Treatments Planned Has ENT appt coming up for a L ear issue with popping/ hearing difficulty with associated balance difficulty when it's present. Treatment Goals Patient/Caregiver Goals To not fall down, to be able to get pants without falling over or having to hold onto something. Prior Functional Status Baseline Function- Recreation/Hobbies Used to hike a lot to take photographs. Used to work in the garden for as long as he wanted. Current Functional Impairments (Reported) Functional Limitations- ADL's Difficulty putting pants on. Functional Limitations- Mobility/Gait Limited to less than a mile walking, uses a cane. Functional Limitations- Recreation/ Limited to 2 hours of Hobbies gardening and has trouble getting down and back up from the ground. PT-OP-C Subjective Start: 02/07/23 10:07 Freq: Status: Active Protocol: Document 02/21/23 10:05 ES (Rec: 02/21/23 10:50 ES [id number]) OP-PT Subjective Patient Comments Patient Comments Patient reported his legs were sore after last visit and are still sore from doing the exercises at home. Soreness is mostly in the thighs and hips . Wants to decrease to 1x/week so he can focus on strengthening at home. PT-OP-D Balance Start: 02/07/23 10:07 Freq: Status: Active Protocol: Document 02/07/23 10:08 ES (Rec: 02/07/23 11:01 ES [id number]) Balance Tests Manuel Balance Test Manuel Balance Test Score 46 Manuel Impairment Rating 1 to 19% Impaired (Score 45-55 ) Single Limb Standing Single Limb- Right 0 Single Limb- Left 2 Tandem Tandem Standing 0 PT-OP-E Functional Tests Start: 02/07/23 10:07 Freq: Status: Active Protocol: Document 02/07/23 10:08 ES (Rec: 02/07/23 11:01 ES [id number]) Functional Tests 6 Minute Walk Test Distance 1178 ft Device Used None Comments Average for age/gender = 1729 ft 30 Second Sit to Stand Test Score 4 Comments Average for age/gender = 12-17 PT-OP-G Mobility & Gait Start: 02/07/23 10:07 Freq: Status: Active Protocol: Document 02/07/23 10:08 ES (Rec: 02/07/23 11:01 ES [id number]) OP Gait Assessment Comments Gait Comments Ambulates with trunk leaning forward and shifted to L, decreased heel-toe pattern and foot clearance, decreased arm swing, and decreased stride length. Turns whole body to look side to side due to limited neck ROM. PT-OP-Q Treatments Start: 02/07/23 10:07 Freq: Status: Active Protocol: Document 02/21/23 10:05 ES (Rec: 02/21/23 10:50 ES [id number]) Cardio Equipment Recumbent Stepper (Sci-Fit) Duration (Minutes) 8 Resistance 2.0 Seat Position 8 Gym Equipment Shuttle Balance Balance training Details Yellow setting Comments Feet apart with turning side to side (feet planted). Staggered stance static stand. Therapeutic Exercises Supine Exercises Piriformis stretch Side bilateral Reps/Minutes 2x30s Comments HEP Figure 4 stretch Side bilateral Reps/Minutes 2x30s Comments HEP Neuro Re-Education Treatment Balance Activities Tandem stance Surface firm Equipment // bars Comments Static standing, attempted turns but difficult PT-OP-T Assessment and Plan Start: 02/07/23 10:07 Freq: Status: Active Protocol: Document 02/21/23 10:05 ES (Rec: 02/21/23 10:50 ES [id number]) Physical Therapy Assessment Impairments Impairments Activity Tolerance,Balance, Functional Activities, Functional Mobility,Gait,Pain, Posture,Sensation,Strength Goals 4 Impairment Balance Short Term Goal (STG) Patient will be able to perform SLS for at least 10 sec B. STG Duration 4 weeks (03/07/23) Carbonation Equipment Operator Goal (LTG) Patient will be able to don pants in standing without LOB with HOWIE support. LTG Duration 8 weeks (04/04/23) 3 Impairment Gait Short Term Goal (STG) Patient will improve 6MWT to at least 1378 ft without AD indicating clinically signficant change in functional mobility tolerance. STG Duration 4 weeks (03/07/23) Custodial Goal (LTG) Patient will be able to walk on uneven ground with LRAD ( cane vs trekking poles) for at least 1 mile without LOB. LTG Duration 8 weeks (04/04/23) 2 Impairment Balance Carbonation Equipment Operator Goal (LTG) Patient will improve Manuel balance score to 50 indicating low risk for falls. LTG Duration 8 weeks (04/04/23) 1 Impairment Strength Short Term Goal (STG) Patient will be able to perform 7 STS in 30 seconds indicating increased functional strength. STG Duration 4 weeks (03/07/23) Assessment Summary Assessment Patient demonstrated poor balance on shuttle balance, with delayed balance reactions and increased posture sway. He tolerated hip stretches without problem. He will benefit from further strengthening and balance training to improve his steadiness with walking/ functional activity. Physical Therapy Plan Frequency and Duration Frequency of Treatment 2x/Week Duration of treatment (weeks) 8 Plan of Care Start Date 02/07/23 Plan of Care End Date 04/04/23 Therapeutic Interventions Therapeutic Interventions Balance Training,Gait Training ,Home Exercise Program, Neuromuscular Re-education, Patient/Caregiver Education, Self-Care/Home Management, Therapeutic Activities, Therapeutic Exercises Next Visit Focus/Plan Next Note Type Treatment Note Next Visit Plan Functional strengthening, balance training.
--- NOTE | 2023-02-28 10:49 | PT.OTN ---
Current Diagnoses Other abnormalities of gait and mobility (02/28/23) Repeated falls (02/28/23) Physical Therapy Treatment Note PT-OP-A Visit Information Start: 02/07/23 10:07 Freq: Status: Active Protocol: Document 02/28/23 08:26 ES (Rec: 02/28/23 10:49 ES [id number]) Out-Patient Physical Therapy Visit Information Visit Information Visit Type Treatment Note Visit Start Time 10:03 Visit Stop Time 10:43 Total Visit Minutes 40 Visit Number 4 Evaluation Information Evaluation Date 02/07/23 PT-OP-B Current Condition Start: 02/07/23 10:07 Freq: Status: Active Protocol: Document 02/07/23 10:08 ES (Rec: 02/07/23 11:01 ES [id number]) Current Condition History of Current Condition Current Complaints Decreased balance, falls History of Current Condition Patient reports that he has had multiple falls in the past . He has a hx of R knee giving out causing falls before. Last year he fell while walking on uneven ground and hit his head on the ground. His eye socket hit the edge of a stone and ended up with fractured eye socket. Has trouble looking down because he has limited neck ROM due to hx of neck fusion and has stenosis. Had back surgery in 2021 and was sedentary because of that, knows his core is quite weak. Had a stroke about 5 years ago that caused swallowing problems. Denies weakness in arms/legs. Uses a hurrycane more and more lately , particularly on longer walks and in the community. Has trouble walking long distances on concrete; feels like the legs are going to give out, so uses a cane for that which helps. Has neuropathy in both feet. Would like to start going to the senior center for exercise classes again. Future Testing and Treatments Planned Has ENT appt coming up for a L ear issue with popping/ hearing difficulty with associated balance difficulty when it's present. Treatment Goals Patient/Caregiver Goals To not fall down, to be able to get pants without falling over or having to hold onto something. Prior Functional Status Baseline Function- Recreation/Hobbies Used to hike a lot to take photographs. Used to work in the garden for as long as he wanted. Current Functional Impairments (Reported) Functional Limitations- ADL's Difficulty putting pants on. Functional Limitations- Mobility/Gait Limited to less than a mile walking, uses a cane. Functional Limitations- Recreation/ Limited to 2 hours of Hobbies gardening and has trouble getting down and back up from the ground. PT-OP-C Subjective Start: 02/07/23 10:07 Freq: Status: Active Protocol: Document 02/28/23 08:26 ES (Rec: 02/28/23 10:49 ES [id number]) OP-PT Subjective Patient Comments Patient Comments Patient reported his legs weren't as sore after last visit but his back has been more sore. Has been doing his exercises at home, states the single leg balance one is still pretty hard to do. Did some yardwork over the weekend , had trouble getting up from the ground, needing to pull himself up with his arms because his legs aren't strong enough to push his body up. PT-OP-D Balance Start: 02/07/23 10:07 Freq: Status: Active Protocol: Document 02/07/23 10:08 ES (Rec: 02/07/23 11:01 ES [id number]) Balance Tests Manuel Balance Test Manuel Balance Test Score 46 Manuel Impairment Rating 1 to 19% Impaired (Score 45-55 ) Single Limb Standing Single Limb- Right 0 Single Limb- Left 2 Tandem Tandem Standing 0 PT-OP-E Functional Tests Start: 02/07/23 10:07 Freq: Status: Active Protocol: Document 02/07/23 10:08 ES (Rec: 02/07/23 11:01 ES [id number]) Functional Tests 6 Minute Walk Test Distance 1178 ft Device Used None Comments Average for age/gender = 1729 ft 30 Second Sit to Stand Test Score 4 Comments Average for age/gender = 12-17 PT-OP-G Mobility & Gait Start: 02/07/23 10:07 Freq: Status: Active Protocol: Document 02/07/23 10:08 ES (Rec: 02/07/23 11:01 ES [id number]) OP Gait Assessment Comments Gait Comments Ambulates with trunk leaning forward and shifted to L, decreased heel-toe pattern and foot clearance, decreased arm swing, and decreased stride length. Turns whole body to look side to side due to limited neck ROM. PT-OP-Q Treatments Start: 02/07/23 10:07 Freq: Status: Active Protocol: Document 02/28/23 08:26 ES (Rec: 02/28/23 10:49 ES [id number]) Cardio Equipment Recumbent Stepper (Sci-Fit) Duration (Minutes) 8 Resistance 2.2 Seat Position 9 Gym Equipment Shuttle Balance Balance training Details Yellow setting Comments Feet apart, tandem stance with ball toss. Therapeutic Exercises Sitting Exercises STS Reps/Minutes x8 ea Comments Staggered stance, instructed for HEP Standing Exercises Modified lunge Side bilateral Equipment Used 8 block with foam pad on top for kneeling side, HOWIE support Reps/Minutes x8 ea Comments CGA Neuro Re-Education Treatment Balance Activities SLS Surface firm Equipment // bars Reps/Duration 2x30s ea Comments Static, min UE support Tandem stance Surface firm Equipment // bars Reps/Duration 2x30s ea Comments Static, no UE support PT-OP-T Assessment and Plan Start: 02/07/23 10:07 Freq: Status: Active Protocol: Document 02/28/23 08:26 ES (Rec: 02/28/23 10:49 ES [id number]) Physical Therapy Assessment Goals 4 Impairment Balance Short Term Goal (STG) Patient will be able to perform SLS for at least 10 sec B. STG Duration 4 weeks (03/07/23) Custodial Goal (LTG) Patient will be able to don pants in standing without LOB with HOWIE support. LTG Duration 8 weeks (04/04/23) 3 Impairment Gait Short Term Goal (STG) Patient will improve 6MWT to at least 1378 ft without AD indicating clinically signficant change in functional mobility tolerance. STG Duration 4 weeks (03/07/23) Risk Control Specialist Goal (LTG) Patient will be able to walk on uneven ground with LRAD ( cane vs trekking poles) for at least 1 mile without LOB. LTG Duration 8 weeks (04/04/23) 2 Impairment Balance Risk Control Specialist Goal (LTG) Patient will improve Manuel balance score to 50 indicating low risk for falls. LTG Duration 8 weeks (04/04/23) 1 Impairment Strength Short Term Goal (STG) Patient will be able to perform 7 STS in 30 seconds indicating increased functional strength. STG Duration 4 weeks (03/07/23) Assessment Summary Assessment Patient demonstrated weakness with LLE>RLE during modified lunge and staggered STS contributing to difficulty getting up from ground level. He demonstrated improved balance today, progressing to ball toss on shuttle balance and being able to net finisher tandem for at least 30 sec without UE support. He is making good progress toward goals. Physical Therapy Plan Frequency and Duration Frequency of Treatment 2x/Week Duration of treatment (weeks) 8 Plan of Care Start Date 02/07/23 Plan of Care End Date 04/04/23 Therapeutic Interventions Therapeutic Interventions Balance Training,Gait Training ,Home Exercise Program, Neuromuscular Re-education, Patient/Caregiver Education, Self-Care/Home Management, Therapeutic Activities, Therapeutic Exercises Next Visit Focus/Plan Next Note Type Treatment Note Next Visit Plan Functional strengthening, balance training progression.
--- NOTE | 2023-03-02 10:17 | PT.OTN ---
Current Diagnoses Other abnormalities of gait and mobility (03/02/23) Repeated falls (03/02/23) Physical Therapy Treatment Note PT-OP-A Visit Information Start: 02/07/23 10:07 Freq: Status: Active Protocol: Document 03/02/23 09:29 SAK (Rec: 03/02/23 10:17 SAK [id number]) Out-Patient Physical Therapy Visit Information Visit Information Visit Type Treatment Note Visit Start Time 09:29 Visit Stop Time 10:14 Total Visit Minutes 43 Visit Number 5 Evaluation Information Evaluation Date 02/07/23 PT-OP-B Current Condition Start: 02/07/23 10:07 Freq: Status: Active Protocol: Document 02/07/23 10:08 ES (Rec: 02/07/23 11:01 ES [id number]) Current Condition History of Current Condition Current Complaints Decreased balance, falls History of Current Condition Patient reports that he has had multiple falls in the past . He has a hx of R knee giving out causing falls before. Last year he fell while walking on uneven ground and hit his head on the ground. His eye socket hit the edge of a stone and ended up with fractured eye socket. Has trouble looking down because he has limited neck ROM due to hx of neck fusion and has stenosis. Had back surgery in 2021 and was sedentary because of that, knows his core is quite weak. Had a stroke about 5 years ago that caused swallowing problems. Denies weakness in arms/legs. Uses a hurrycane more and more lately , particularly on longer walks and in the community. Has trouble walking long distances on concrete; feels like the legs are going to give out, so uses a cane for that which helps. Has neuropathy in both feet. Would like to start going to the senior center for exercise classes again. Future Testing and Treatments Planned Has ENT appt coming up for a L ear issue with popping/ hearing difficulty with associated balance difficulty when it's present. Treatment Goals Patient/Caregiver Goals To not fall down, to be able to get pants without falling over or having to hold onto something. Prior Functional Status Baseline Function- Recreation/Hobbies Used to hike a lot to take photographs. Used to work in the garden for as long as he wanted. Current Functional Impairments (Reported) Functional Limitations- ADL's Difficulty putting pants on. Functional Limitations- Mobility/Gait Limited to less than a mile walking, uses a cane. Functional Limitations- Recreation/ Limited to 2 hours of Hobbies gardening and has trouble getting down and back up from the ground. PT-OP-C Subjective Start: 02/07/23 10:07 Freq: Status: Active Protocol: Document 03/02/23 09:29 SAK (Rec: 03/02/23 10:17 SAK [id number]) OP-PT Subjective Patient Comments Patient Comments Trying to go without a cane. Compliant to HEP, feels they are helpful. legs tired. PT-OP-D Balance Start: 02/07/23 10:07 Freq: Status: Active Protocol: Document 02/07/23 10:08 ES (Rec: 02/07/23 11:01 ES [id number]) Balance Tests Manuel Balance Test Manuel Balance Test Score 46 Manuel Impairment Rating 1 to 19% Impaired (Score 45-55 ) Single Limb Standing Single Limb- Right 0 Single Limb- Left 2 Tandem Tandem Standing 0 PT-OP-E Functional Tests Start: 02/07/23 10:07 Freq: Status: Active Protocol: Document 02/07/23 10:08 ES (Rec: 02/07/23 11:01 ES [id number]) Functional Tests 6 Minute Walk Test Distance 1178 ft Device Used None Comments Average for age/gender = 1729 ft 30 Second Sit to Stand Test Score 4 Comments Average for age/gender = 12-17 PT-OP-G Mobility & Gait Start: 02/07/23 10:07 Freq: Status: Active Protocol: Document 02/07/23 10:08 ES (Rec: 02/07/23 11:01 ES [id number]) OP Gait Assessment Comments Gait Comments Ambulates with trunk leaning forward and shifted to L, decreased heel-toe pattern and foot clearance, decreased arm swing, and decreased stride length. Turns whole body to look side to side due to limited neck ROM. PT-OP-Q Treatments Start: 02/07/23 10:07 Freq: Status: Active Protocol: Document 03/02/23 09:29 SAK (Rec: 03/02/23 10:17 SAK [id number]) Cardio Equipment Recumbent Stepper (Sci-Fit) Duration (Minutes) 8 Resistance 2.2 Seat Position 9 Other 3 min UE's and LE's, 5 min LE' s only Gym Equipment Shuttle Recovery Unilateral Squats Resistance 37 Shuttle Recovery Platform Stable Reps/Time 10x Bilateral Squats Resistance 62 Shuttle Recovery Platform Stable Reps/Time 10x2 Shuttle Balance Balance training Details Yellow setting>Blue setting Comments Feet apart with ball toss. Head turns, EC, mini squat ( fwd, side) Therapeutic Exercises Sitting Exercises HS Curls Side bilateral Resistance [employer] TB Reps/Minutes 10x Standing Exercises Modified lunge Side bilateral Equipment Used 6 block with foam pad on top for kneeling side, HOWIE support Reps/Minutes x8 ea Comments CGA Neuro Re-Education Treatment Balance Activities foam walk Surface blue, [place], black, green foam Equipment parallel bars Reps/Duration 5 min Comments min UE use SLS Surface firm>Blue Foam Equipment // bars Reps/Duration 2x30s ea Comments Static, min UE support Tandem stance Surface firm>Blue Foam Equipment // bars Reps/Duration 2x30s ea Comments Static, no UE support as able PT-OP-T Assessment and Plan Start: 02/07/23 10:07 Freq: Status: Active Protocol: Document 03/02/23 09:29 [facility] (Rec: 03/02/23 10:17 [facility] [id number]) Physical Therapy Assessment Impairments Impairments Activity Tolerance,Balance, Functional Activities, Functional Mobility,Gait,Pain, Posture,Sensation,Strength Goals 4 Impairment Balance Short Term Goal (STG) Patient will be able to perform SLS for at least 10 sec B. STG Duration 4 weeks (03/07/23) Senior Care Goal (LTG) Patient will be able to don pants in standing without LOB with HOWIE support. LTG Duration 8 weeks (04/04/23) 3 Impairment Gait Short Term Goal (STG) Patient will improve 6MWT to at least 1378 ft without AD indicating clinically signficant change in functional mobility tolerance. STG Duration 4 weeks (03/07/23) [employer]itor [employer] Goal (LTG) Patient will be able to walk on uneven ground with LRAD ( cane vs trekking poles) for at least 1 mile without LOB. LTG Duration 8 weeks (04/04/23) 2 Impairment Balance Senior Care Goal (LTG) Patient will improve Manuel balance score to 50 indicating low risk for falls. LTG Duration 8 weeks (04/04/23) 1 Impairment Strength Short Term Goal (STG) Patient will be able to perform 7 STS in 30 seconds indicating increased functional strength. STG Duration 4 weeks (03/07/23) Assessment Summary Assessment Patient able to progress to chains on blue for shuttle balance activities, added side to side balance with initial large amplitude corrections, improving to good ability to balance statically. Added challenged gait/bal on foam pods of different density. Hamstring curl added to HEP Physical Therapy Plan Frequency and Duration Frequency of Treatment 2x/Week Duration of treatment (weeks) 8 Plan of Care Start Date 02/07/23 Plan of Care End Date 04/04/23 Therapeutic Interventions Therapeutic Interventions Balance Training,Gait Training ,Home Exercise Program, Neuromuscular Re-education, Patient/Caregiver Education, Self-Care/Home Management, Therapeutic Activities, Therapeutic Exercises Next Visit Focus/Plan Next Note Type Treatment Note Next Visit Plan Continue progression of functional strengthening, balance training, gait
--- NOTE | 2023-03-06 16:09 | PT.OTN ---
Current Diagnoses Other abnormalities of gait and mobility (03/06/23) Repeated falls (03/06/23) Physical Therapy Treatment Note PT-OP-A Visit Information Start: 02/07/23 10:07 Freq: Status: Active Protocol: Document 03/06/23 14:47 ES (Rec: 03/06/23 16:02 ES [id number]) Out-Patient Physical Therapy Visit Information Visit Information Visit Type Treatment Note Visit Start Time 14:47 Visit Stop Time 15:30 Total Visit Minutes 43 Visit Number 6 Evaluation Information Evaluation Date 02/07/23 PT-OP-B Current Condition Start: 02/07/23 10:07 Freq: Status: Active Protocol: Document 02/07/23 10:08 ES (Rec: 02/07/23 11:01 ES [id number]) Current Condition History of Current Condition Current Complaints Decreased balance, falls History of Current Condition Patient reports that he has had multiple falls in the past . He has a hx of R knee giving out causing falls before. Last year he fell while walking on uneven ground and hit his head on the ground. His eye socket hit the edge of a stone and ended up with fractured eye socket. Has trouble looking down because he has limited neck ROM due to hx of neck fusion and has stenosis. Had back surgery in 2021 and was sedentary because of that, knows his core is quite weak. Had a stroke about 5 years ago that caused swallowing problems. Denies weakness in arms/legs. Uses a hurrycane more and more lately , particularly on longer walks and in the community. Has trouble walking long distances on concrete; feels like the legs are going to give out, so uses a cane for that which helps. Has neuropathy in both feet. Would like to start going to the senior center for exercise classes again. Future Testing and Treatments Planned Has ENT appt coming up for a L ear issue with popping/ hearing difficulty with associated balance difficulty when it's present. Treatment Goals Patient/Caregiver Goals To not fall down, to be able to get pants without falling over or having to hold onto something. Prior Functional Status Baseline Function- Recreation/Hobbies Used to hike a lot to take photographs. Used to work in the garden for as long as he wanted. Current Functional Impairments (Reported) Functional Limitations- ADL's Difficulty putting pants on. Functional Limitations- Mobility/Gait Limited to less than a mile walking, uses a cane. Functional Limitations- Recreation/ Limited to 2 hours of Hobbies gardening and has trouble getting down and back up from the ground. PT-OP-C Subjective Start: 02/07/23 10:07 Freq: Status: Active Protocol: Document 03/06/23 14:47 ES (Rec: 03/06/23 16:02 ES [id number]) OP-PT Subjective Patient Comments Patient Comments Patient reported feeling tired and a little sore. Hasn't been walking much outside due to the hot weather. Stated that a couple weeks ago he walked his 1 mile loop near his home without any AD. Sidestepping is getting easier with the orange band. PT-OP-D Balance Start: 02/07/23 10:07 Freq: Status: Active Protocol: Document 03/06/23 14:47 ES (Rec: 03/06/23 16:03 ES [id number]) Balance Tests Single Limb Standing Single Limb- Right 2 sec Single Limb- Left 20 sec PT-OP-E Functional Tests Start: 02/07/23 10:07 Freq: Status: Active Protocol: Document 03/06/23 14:47 ES (Rec: 03/06/23 16:03 ES [id number]) Functional Tests 6 Minute Walk Test Distance 1265 ft Device Used no AD Comments Average for age/gender = 1729 ft 30 Second Sit to Stand Test Score 12 Comments Average for age/gender = 12-17 PT-OP-G Mobility & Gait Start: 02/07/23 10:07 Freq: Status: Active Protocol: Document 02/07/23 10:08 ES (Rec: 02/07/23 11:01 ES [id number]) OP Gait Assessment Comments Gait Comments Ambulates with trunk leaning forward and shifted to L, decreased heel-toe pattern and foot clearance, decreased arm swing, and decreased stride length. Turns whole body to look side to side due to limited neck ROM. PT-OP-Q Treatments Start: 02/07/23 10:07 Freq: Status: Active Protocol: Document 03/06/23 14:47 ES (Rec: 03/06/23 16:02 ES [id number]) Cardio Equipment Recumbent Stepper (Sci-Fit) Duration (Minutes) 8 Resistance 2.4 Seat Position 8 Other 3 min UE's and LE's, 5 min LE' s only Therapeutic Exercises Sitting Exercises STS Comments 12 reps in 30 sec Other Exercises 6 min walk Comments 1265 ft, no AD Neuro Re-Education Treatment Balance Activities Dynadisc Surface One foot on dynadisc Reps/Duration x30 sec ea B Comments Ball toss, no UE support Tilt board Equipment // bars Reps/Duration 2x2 min Comments AP and lateral; with ball toss SLS Surface firm Comments up to 20 sec max on L, 2 sec max on R, no UE support Self-Care/Home Management Treatment Education Patient Education Home Exercise Program Other Education Provided green band for progression with side stepping at home. PT-OP-T Assessment and Plan Start: 02/07/23 10:07 Freq: Status: Active Protocol: Document 03/06/23 14:47 ES (Rec: 03/06/23 16:02 ES [id number]) Physical Therapy Assessment Goals 4 Impairment Balance Short Term Goal (STG) Patient will be able to perform SLS for at least 10 sec B. STG Duration 4 weeks (03/07/23) - progressing 03/06/23 Long-Term Goal (LTG) Patient will be able to don pants in standing without LOB with HOWIE support. LTG Duration 8 weeks (04/04/23) 3 Impairment Gait Short Term Goal (STG) Patient will improve 6MWT to at least 1378 ft without AD indicating clinically signficant change in functional mobility tolerance. STG Duration 4 weeks (03/07/23) - progressing 03/06/23 Long-Term Goal (LTG) Patient will be able to walk on uneven ground with LRAD ( cane vs trekking poles) for at least 1 mile without LOB. LTG Duration 8 weeks (04/04/23) 2 Impairment Balance Parenting Skills Instructor Goal (LTG) Patient will improve Manuel balance score to 50 indicating low risk for falls. LTG Duration 8 weeks (04/04/23) 1 Impairment Strength Short Term Goal (STG) Patient will be able to perform 7 STS in 30 seconds indicating increased functional strength. STG Duration 4 weeks (03/07/23) - met 03/06/23 Assessment Summary Assessment Patient demonstrated improvement in 6 min walk test , 30sSTS, and SLS indicating increased strength, balance, and gait speed. He requires higher level balance activities to be challenged. He continues to have difficulty with R SLS, will benefit from continued SL and lateral hip strengthening and balance training. Physical Therapy Plan Frequency and Duration Frequency of Treatment 2x/Week Duration of treatment (weeks) 8 Plan of Care Start Date 02/07/23 Plan of Care End Date 04/04/23 Therapeutic Interventions Therapeutic Interventions Balance Training,Gait Training ,Home Exercise Program, Neuromuscular Re-education, Patient/Caregiver Education, Self-Care/Home Management, Therapeutic Activities, Therapeutic Exercises Next Visit Focus/Plan Next Note Type Treatment Note Next Visit Plan Continue progression of functional strengthening, balance training, gait
--- NOTE | 2023-03-09 15:35 | PT.OTN ---
Current Diagnoses Other abnormalities of gait and mobility (03/09/23) Repeated falls (03/09/23) Physical Therapy Treatment Note PT-OP-A Visit Information Start: 02/07/23 10:07 Freq: Status: Active Protocol: Document 03/09/23 14:48 ES (Rec: 03/09/23 15:35 ES [id number]) Out-Patient Physical Therapy Visit Information Visit Information Visit Type Treatment Note Visit Start Time 14:48 Visit Stop Time 15:30 Total Visit Minutes 42 Visit Number 7 Evaluation Information Evaluation Date 02/07/23 PT-OP-B Current Condition Start: 02/07/23 10:07 Freq: Status: Active Protocol: Document 02/07/23 10:08 ES (Rec: 02/07/23 11:01 ES [id number]) Current Condition History of Current Condition Current Complaints Decreased balance, falls History of Current Condition Patient reports that he has had multiple falls in the past . He has a hx of R knee giving out causing falls before. Last year he fell while walking on uneven ground and hit his head on the ground. His eye socket hit the edge of a stone and ended up with fractured eye socket. Has trouble looking down because he has limited neck ROM due to hx of neck fusion and has stenosis. Had back surgery in 2021 and was sedentary because of that, knows his core is quite weak. Had a stroke about 5 years ago that caused swallowing problems. Denies weakness in arms/legs. Uses a hurrycane more and more lately , particularly on longer walks and in the community. Has trouble walking long distances on concrete; feels like the legs are going to give out, so uses a cane for that which helps. Has neuropathy in both feet. Would like to start going to the [facility] center for exercise classes again. Future Testing and Treatments Planned Has ENT appt coming up for a L ear issue with popping/ hearing difficulty with associated balance difficulty when it's present. Treatment Goals Patient/Caregiver Goals To not fall down, to be able to get pants without falling over or having to hold onto something. Prior Functional Status Baseline Function- Recreation/Hobbies Used to hike a lot to take photographs. Used to work in the garden for as long as he wanted. Current Functional Impairments (Reported) Functional Limitations- ADL's Difficulty putting pants on. Functional Limitations- Mobility/Gait Limited to less than a mile walking, uses a cane. Functional Limitations- Recreation/ Limited to 2 hours of Hobbies gardening and has trouble getting down and back up from the ground. PT-OP-C Subjective Start: 02/07/23 10:07 Freq: Status: Active Protocol: Document 03/09/23 14:48 ES (Rec: 03/09/23 15:35 ES [id number]) OP-PT Subjective Patient Comments Patient Comments Patient stated his calves are sore from doing a lot of walking. Otherwise feeling good. PT-OP-D Balance Start: 02/07/23 10:07 Freq: Status: Active Protocol: Document 03/06/23 14:47 ES (Rec: 03/06/23 16:03 ES [id number]) Balance Tests Single Limb Standing Single Limb- Right 2 sec Single Limb- Left 20 sec PT-OP-E Functional Tests Start: 02/07/23 10:07 Freq: Status: Active Protocol: Document 03/06/23 14:47 ES (Rec: 03/06/23 16:03 ES [id number]) Functional Tests 6 Minute Walk Test Distance 1265 ft Device Used no AD Comments Average for age/gender = 1729 ft 30 Second Sit to Stand Test Score 12 Comments Average for age/gender = 12-17 PT-OP-G Mobility & Gait Start: 02/07/23 10:07 Freq: Status: Active Protocol: Document 02/07/23 10:08 ES (Rec: 02/07/23 11:01 ES [id number]) OP Gait Assessment Comments Gait Comments Ambulates with trunk leaning forward and shifted to L, decreased heel-toe pattern and foot clearance, decreased arm swing, and decreased stride length. Turns whole body to look side to side due to limited neck ROM. PT-OP-Q Treatments Start: 02/07/23 10:07 Freq: Status: Active Protocol: Document 03/09/23 14:48 ES (Rec: 03/09/23 15:35 ES [id number]) Cardio Equipment Recumbent Stepper (Sci-Fit) Duration (Minutes) 8 Resistance 2.5 Seat Position 9 Other 3 min UE's and LE's, 5 min LE' s only Gym Equipment Shuttle Recovery Unilateral Squats Resistance 50 Shuttle Recovery Platform Stable Reps/Time 2x10x Bilateral Squats Resistance 62 Shuttle Recovery Platform Stable Reps/Time 10x2 Shuttle Balance Balance training Details Red setting Comments Staggered stance (a/p tilt), normal stance (lateral tilt) Therapeutic Exercises Standing Exercises Calf stretch Side bilateral Reps/Minutes 3x30s ea side Neuro Re-Education Treatment Balance Activities Step tap Equipment 6 step, 2lb ankle weights Reps/Duration x15 ea side B Comments No UE support Hurdles Details Stepping over forward, sideways Equipment 2lb ankle weights PT-OP-T Assessment and Plan Start: 02/07/23 10:07 Freq: Status: Active Protocol: Document 03/09/23 14:48 ES (Rec: 03/09/23 15:35 ES [id number]) Physical Therapy Assessment Impairments Impairments Activity Tolerance,Balance, Functional Activities, Functional Mobility,Gait,Pain, Posture,Sensation,Strength Goals 4 Impairment Balance Short Term Goal (STG) Patient will be able to perform SLS for at least 10 sec B. STG Duration 4 weeks (03/07/23) - progressing 03/06/23 Intermediate Goal (LTG) Patient will be able to don pants in standing without LOB with HOWIE support. LTG Duration 8 weeks (04/04/23) 3 Impairment Gait Short Term Goal (STG) Patient will improve 6MWT to at least 1378 ft without AD indicating clinically signficant change in functional mobility tolerance. STG Duration 4 weeks (03/07/23) - progressing 03/06/23 Driver Medic Goal (LTG) Patient will be able to walk on uneven ground with LRAD ( cane vs trekking poles) for at least 1 mile without LOB. LTG Duration 8 weeks (04/04/23) 2 Impairment Balance Driver Medic Goal (LTG) Patient will improve Manuel balance score to 50 indicating low risk for falls. LTG Duration 8 weeks (04/04/23) 1 Impairment Strength Short Term Goal (STG) Patient will be able to perform 7 STS in 30 seconds indicating increased functional strength. STG Duration 4 weeks (03/07/23) - met 03/06/23 Assessment Summary Assessment Patient continues to make good progress with balance and strengthening, tolerating higher level challenges. Physical Therapy Plan Frequency and Duration Frequency of Treatment 2x/Week Duration of treatment (weeks) 8 Plan of Care Start Date 02/07/23 Plan of Care End Date 04/04/23 Therapeutic Interventions Therapeutic Interventions Balance Training,Gait Training ,Home Exercise Program, Neuromuscular Re-education, Patient/Caregiver Education, Self-Care/Home Management, Therapeutic Activities, Therapeutic Exercises Next Visit Focus/Plan Next Note Type Treatment Note Next Visit Plan Continue progression of functional strengthening, balance training, gait
--- NOTE | 2023-03-13 13:19 | PT.OTN ---
Current Diagnoses Other abnormalities of gait and mobility (03/13/23) Repeated falls (03/13/23) Physical Therapy Treatment Note PT-OP-A Visit Information Start: 02/07/23 10:07 Freq: Status: Active Protocol: Document 03/13/23 11:07 ES (Rec: 03/13/23 13:19 ES [id number]) Out-Patient Physical Therapy Visit Information Visit Information Visit Type Treatment Note Visit Start Time 11:07 Visit Stop Time 11:50 Total Visit Minutes 43 Visit Number 8 Evaluation Information Evaluation Date 02/07/23 PT-OP-B Current Condition Start: 02/07/23 10:07 Freq: Status: Active Protocol: Document 02/07/23 10:08 ES (Rec: 02/07/23 11:01 ES [id number]) Current Condition History of Current Condition Current Complaints Decreased balance, falls History of Current Condition Patient reports that he has had multiple falls in the past . He has a hx of R knee giving out causing falls before. Last year he fell while walking on uneven ground and hit his head on the ground. His eye socket hit the edge of a stone and ended up with fractured eye socket. Has trouble looking down because he has limited neck ROM due to hx of neck fusion and has stenosis. Had back surgery in 2021 and was sedentary because of that, knows his core is quite weak. Had a stroke about 5 years ago that caused swallowing problems. Denies weakness in arms/legs. Uses a hurrycane more and more lately , particularly on longer walks and in the community. Has trouble walking long distances on concrete; feels like the legs are going to give out, so uses a cane for that which helps. Has neuropathy in both feet. Would like to start going to the senior center for exercise classes again. Future Testing and Treatments Planned Has ENT appt coming up for a L ear issue with popping/ hearing difficulty with associated balance difficulty when it's present. Treatment Goals Patient/Caregiver Goals To not fall down, to be able to get pants without falling over or having to hold onto something. Prior Functional Status Baseline Function- Recreation/Hobbies Used to hike a lot to take photographs. Used to work in the garden for as long as he wanted. Current Functional Impairments (Reported) Functional Limitations- ADL's Difficulty putting pants on. Functional Limitations- Mobility/Gait Limited to less than a mile walking, uses a cane. Functional Limitations- Recreation/ Limited to 2 hours of Hobbies gardening and has trouble getting down and back up from the ground. PT-OP-C Subjective Start: 02/07/23 10:07 Freq: Status: Active Protocol: Document 03/13/23 11:07 ES (Rec: 03/13/23 13:19 ES [id number]) OP-PT Subjective Patient Comments Patient Comments Patient reported being a little sore; no problems after the last visit. Did some gardening over the weekend. Calves haven't been as sore since doing calf stretches. PT-OP-D Balance Start: 02/07/23 10:07 Freq: Status: Active Protocol: Document 03/06/23 14:47 ES (Rec: 03/06/23 16:03 ES [id number]) Balance Tests Single Limb Standing Single Limb- Right 2 sec Single Limb- Left 20 sec PT-OP-E Functional Tests Start: 02/07/23 10:07 Freq: Status: Active Protocol: Document 03/06/23 14:47 ES (Rec: 03/06/23 16:03 ES [id number]) Functional Tests 6 Minute Walk Test Distance 1265 ft Device Used no AD Comments Average for age/gender = 1729 ft 30 Second Sit to Stand Test Score 12 Comments Average for age/gender = 12-17 PT-OP-G Mobility & Gait Start: 02/07/23 10:07 Freq: Status: Active Protocol: Document 02/07/23 10:08 ES (Rec: 02/07/23 11:01 ES [id number]) OP Gait Assessment Comments Gait Comments Ambulates with trunk leaning forward and shifted to L, decreased heel-toe pattern and foot clearance, decreased arm swing, and decreased stride length. Turns whole body to look side to side due to limited neck ROM. PT-OP-Q Treatments Start: 02/07/23 10:07 Freq: Status: Active Protocol: Document 03/13/23 11:07 ES (Rec: 03/13/23 13:19 ES [id number]) Cardio Equipment Recumbent Stepper (Sci-Fit) Duration (Minutes) 8 Resistance 2.5 Seat Position 9 Other 3 min UE's and LE's, 5 min LE' s only Gym Equipment Cable Column (Body Solid) Leg Curl Resistance 40lb Reps/Time 3x10 Shuttle Recovery Unilateral Squats Resistance 50 Shuttle Recovery Platform Stable Reps/Time 2x12x Bilateral Squats Resistance 62 Shuttle Recovery Platform Stable Reps/Time 10x1 Therapeutic Exercises Standing Exercises Modified lunge Side bilateral Equipment Used 6 block with foam pad on top for kneeling side, HOWIE support Reps/Minutes x10 ea Comments BUE support for R foot forward Neuro Re-Education Treatment Balance Activities Step tap Equipment 6 step, 2lb ankle weights Reps/Duration x15 ea side B Comments Forward, lateral. In // bars but no UE support. Hurdles Details Stepping over forward, sideways Equipment 2lb ankle weights Comments In // bars PT-OP-T Assessment and Plan Start: 02/07/23 10:07 Freq: Status: Active Protocol: Document 03/13/23 11:07 ES (Rec: 03/13/23 13:19 ES [id number]) Physical Therapy Assessment Goals 4 Impairment Balance Short Term Goal (STG) Patient will be able to perform SLS for at least 10 sec B. STG Duration 4 weeks (03/07/23) - progressing 03/06/23 Tap Builder Goal (LTG) Patient will be able to don pants in standing without LOB with HOWIE support. LTG Duration 8 weeks (04/04/23) 3 Impairment Gait Short Term Goal (STG) Patient will improve 6MWT to at least 1378 ft without AD indicating clinically signficant change in functional mobility tolerance. STG Duration 4 weeks (03/07/23) - progressing 03/06/23 Group Home Goal (LTG) Patient will be able to walk on uneven ground with LRAD ( cane vs trekking poles) for at least 1 mile without LOB. LTG Duration 8 weeks (04/04/23) 2 Impairment Balance Group Home Goal (LTG) Patient will improve Manuel balance score to 50 indicating low risk for falls. LTG Duration 8 weeks (04/04/23) 1 Impairment Strength Short Term Goal (STG) Patient will be able to perform 7 STS in 30 seconds indicating increased functional strength. STG Duration 4 weeks (03/07/23) - met 03/06/23 Assessment Summary Assessment Patient's RLE fatigued quickly with ex's today. Patient reported having some R buttock pain similar to his sciatica he's had before. He will benefit from further balance training to improve balance reactions to reduce his fall risk. Physical Therapy Plan Frequency and Duration Frequency of Treatment 2x/Week Duration of treatment (weeks) 8 Plan of Care Start Date 02/07/23 Plan of Care End Date 04/04/23 Therapeutic Interventions Therapeutic Interventions Balance Training,Gait Training ,Home Exercise Program, Neuromuscular Re-education, Patient/Caregiver Education, Self-Care/Home Management, Therapeutic Activities, Therapeutic Exercises Next Visit Focus/Plan Next Note Type Treatment Note Next Visit Plan Continue progression of functional strengthening, balance training, gait
--- NOTE | 2023-03-15 11:15 | PT.OTN ---
Current Diagnoses Other abnormalities of gait and mobility (03/15/23) Repeated falls (03/15/23) Physical Therapy Treatment Note PT-OP-A Visit Information Start: 02/07/23 10:07 Freq: Status: Active Protocol: Document 03/15/23 10:31 SAK (Rec: 03/15/23 11:15 SAK [id number]) Out-Patient Physical Therapy Visit Information Visit Information Visit Type Treatment Note Visit Start Time 10:31 Visit Stop Time 11:15 Total Visit Minutes 44 Visit Number 9 Evaluation Information Evaluation Date 02/07/23 PT-OP-B Current Condition Start: 02/07/23 10:07 Freq: Status: Active Protocol: Document 02/07/23 10:08 ES (Rec: 02/07/23 11:01 ES [id number]) Current Condition History of Current Condition Current Complaints Decreased balance, falls History of Current Condition Patient reports that he has had multiple falls in the past . He has a hx of R knee giving out causing falls before. Last year he fell while walking on uneven ground and hit his head on the ground. His eye socket hit the edge of a stone and ended up with fractured eye socket. Has trouble looking down because he has limited neck ROM due to hx of neck fusion and has stenosis. Had back surgery in 2021 and was sedentary because of that, knows his core is quite weak. Had a stroke about 5 years ago that caused swallowing problems. Denies weakness in arms/legs. Uses a hurrycane more and more lately , particularly on longer walks and in the community. Has trouble walking long distances on concrete; feels like the legs are going to give out, so uses a cane for that which helps. Has neuropathy in both feet. Would like to start going to the senior center for exercise classes again. Future Testing and Treatments Planned Has ENT appt coming up for a L ear issue with popping/ hearing difficulty with associated balance difficulty when it's present. Treatment Goals Patient/Caregiver Goals To not fall down, to be able to get pants without falling over or having to hold onto something. Prior Functional Status Baseline Function- Recreation/Hobbies Used to hike a lot to take photographs. Used to work in the garden for as long as he wanted. Current Functional Impairments (Reported) Functional Limitations- ADL's Difficulty putting pants on. Functional Limitations- Mobility/Gait Limited to less than a mile walking, uses a cane. Functional Limitations- Recreation/ Limited to 2 hours of Hobbies gardening and has trouble getting down and back up from the ground. PT-OP-C Subjective Start: 02/07/23 10:07 Freq: Status: Active Protocol: Document 03/15/23 10:31 SAK (Rec: 03/15/23 11:15 SAK [id number]) OP-PT Subjective Patient Comments Patient Comments Feels sciatical acting up a bit, doing a lot of gardening. Feels PT helping, legs getting stronger, improving balance. PT-OP-D Balance Start: 02/07/23 10:07 Freq: Status: Active Protocol: Document 03/06/23 14:47 ES (Rec: 03/06/23 16:03 ES [id number]) Balance Tests Single Limb Standing Single Limb- Right 2 sec Single Limb- Left 20 sec PT-OP-E Functional Tests Start: 02/07/23 10:07 Freq: Status: Active Protocol: Document 03/06/23 14:47 ES (Rec: 03/06/23 16:03 ES [id number]) Functional Tests 6 Minute Walk Test Distance 1265 ft Device Used no AD Comments Average for age/gender = 1729 ft 30 Second Sit to Stand Test Score 12 Comments Average for age/gender = 12-17 PT-OP-G Mobility & Gait Start: 02/07/23 10:07 Freq: Status: Active Protocol: Document 02/07/23 10:08 ES (Rec: 02/07/23 11:01 ES [id number]) OP Gait Assessment Comments Gait Comments Ambulates with trunk leaning forward and shifted to L, decreased heel-toe pattern and foot clearance, decreased arm swing, and decreased stride length. Turns whole body to look side to side due to limited neck ROM. PT-OP-Q Treatments Start: 02/07/23 10:07 Freq: Status: Active Protocol: Document 03/15/23 10:31 SAK (Rec: 03/15/23 11:15 SAK [id number]) Cardio Equipment Recumbent Stepper (Sci-Fit) Duration (Minutes) 8 Resistance 2.5 Seat Position 9 Other 3 min UE's and LE's, 5 min LE' s only Gym Equipment Cable Column (Body Solid) Leg Curl Resistance 40lb Reps/Time 2x15 Shuttle Recovery Unilateral Squats Resistance 50 Shuttle Recovery Platform Stable Reps/Time 2x12x Bilateral Squats Resistance 62 Shuttle Recovery Platform Stable Reps/Time 10x2 Shuttle Balance Balance training Details Red setting Comments Staggered stance (a/p tilt), normal stance (lateral tilt) Therapeutic Exercises Sidelying Exercises reverse clam Comments next session clam Reps/Minutes 10x Comments issued written handout Standing Exercises Modified lunge Side bilateral Equipment Used 6 block with foam pad on top for kneeling side, HOWIE support Reps/Minutes x10 ea Comments BUE support for R foot forward Neuro Re-Education Treatment Balance Activities Step tap Equipment 6 step, 2lb ankle weights Reps/Duration x15 ea side B Comments Forward, lateral. In // bars but no UE support. Hurdles Details Stepping over forward, sideways Equipment 2lb ankle weights Comments In // bars Self-Care/Home Management Treatment Education Patient Education Body Mechanics,Home Exercise Program,Posture PT-OP-T Assessment and Plan Start: 02/07/23 10:07 Freq: Status: Active Protocol: Document 03/15/23 10:31 [facility] (Rec: 03/15/23 11:15 [facility] [id number]) Physical Therapy Assessment Impairments Impairments Activity Tolerance,Balance, Functional Activities, Functional Mobility,Gait,Pain, Posture,Sensation,Strength Goals 4 Impairment Balance Short Term Goal (STG) Patient will be able to perform SLS for at least 10 sec B. STG Duration 4 weeks (03/07/23) - progressing 03/06/23 Rubber Extrusion Machine Operator Goal (LTG) Patient will be able to don pants in standing without LOB with HOWIE support. LTG Duration 8 weeks (04/04/23) 3 Impairment Gait Short Term Goal (STG) Patient will improve 6MWT to at least 1378 ft without AD indicating clinically signficant change in functional mobility tolerance. STG Duration 4 weeks (03/07/23) - progressing 03/06/23 Rubber Extrusion Machine Operator Goal (LTG) Patient will be able to walk on uneven ground with LRAD ( cane vs trekking poles) for at least 1 mile without LOB. LTG Duration 8 weeks (04/04/23) 2 Impairment Balance Group Home Goal (LTG) Patient will improve Manuel balance score to 50 indicating low risk for falls. LTG Duration 8 weeks (04/04/23) 1 Impairment Strength Short Term Goal (STG) Patient will be able to perform 7 STS in 30 seconds indicating increased functional strength. STG Duration 4 weeks (03/07/23) - met 03/06/23 Assessment Summary Assessment Improving functional strength and balance. Some increase in sciatic symptoms due to gardening. Discussed body mechanics for back protection. Physical Therapy Plan Frequency and Duration Frequency of Treatment 2x/Week Duration of treatment (weeks) 8 Plan of Care Start Date 02/07/23 Plan of Care End Date 04/04/23 Therapeutic Interventions Therapeutic Interventions Balance Training,Gait Training ,Home Exercise Program, Neuromuscular Re-education, Patient/Caregiver Education, Self-Care/Home Management, Therapeutic Activities, Therapeutic Exercises Next Visit Focus/Plan Next Note Type Re-Evaluation Next Visit Plan Continue progression of functional strengthening, balance training, gait
--- NOTE | 2023-03-20 09:23 | PT.OPPN ---
Current Diagnoses Other abnormalities of gait and mobility (03/20/23) Repeated falls (03/20/23) Physical Therapy Progress Note PT-OP-A Visit Information Start: 02/07/23 10:07 Freq: Status: Active Protocol: Document 03/22/23 14:06 SAK (Rec: 03/22/23 14:06 [facility] [id number]) Out-Patient Physical Therapy Visit Information Visit Information Visit Type Cancellation Visit Note via [employer] PT-OP-B Current Condition Start: 02/07/23 10:07 Freq: Status: Active Protocol: Document 03/20/23 10:32 [facility] (Rec: 03/20/23 11:16 [facility] [id number]) Current Condition History of Current Condition Current Complaints Decreased balance, falls History of Current Condition Patient reports that he has had multiple falls in the past . He has a hx of R knee giving out causing falls before. Last year he fell while walking on uneven ground and hit his head on the ground. His eye socket hit the edge of a stone and ended up with fractured eye socket. Has trouble looking down because he has limited neck ROM due to hx of neck fusion and has stenosis. Had back surgery in 2021 and was sedentary because of that, knows his core is quite weak. Had a stroke about 5 years ago that caused swallowing problems. Denies weakness in arms/legs. Uses a hurrycane more and more lately , particularly on longer walks and in the community. Has trouble walking long distances on concrete; feels like the legs are going to give out, so uses a cane for that which helps. Has neuropathy in both feet. Would like to start going to the senior center for exercise classes again. Future Testing and Treatments Planned Has ENT appt coming up for a L ear issue with popping/ hearing difficulty with associated balance difficulty when it's present. PT-OP-C Subjective Start: 02/07/23 10:07 Freq: Status: Active Protocol: Document 03/20/23 10:32 [facility] (Rec: 03/20/23 11:16 [facility] [id number]) OP-PT Subjective Patient Comments Patient Comments Reports left lateral hip down to knee sore since starting to do clamshells and figure 4 exercises. Hasn't used any ice or heat. Hasn't gone back for exercises, has Carrington Torres has been thinking about it. PT-OP-D Balance Start: 02/07/23 10:07 Freq: Status: Active Protocol: Document 03/06/23 14:47 ES (Rec: 03/06/23 16:03 ES [id number]) Balance Tests Single Limb Standing Single Limb- Right 2 sec Single Limb- Left 20 sec PT-OP-E Functional Tests Start: 02/07/23 10:07 Freq: Status: Active Protocol: Document 03/06/23 14:47 ES (Rec: 03/06/23 16:03 ES [id number]) Functional Tests 6 Minute Walk Test Distance 1265 ft Device Used no AD Comments Average for age/gender = 1729 ft 30 Second Sit to Stand Test Score 12 Comments Average for age/gender = 12-17 PT-OP-G Mobility & Gait Start: 02/07/23 10:07 Freq: Status: Active Protocol: Document 02/07/23 10:08 ES (Rec: 02/07/23 11:01 ES [id number]) OP Gait Assessment Comments Gait Comments Ambulates with trunk leaning forward and shifted to L, decreased heel-toe pattern and foot clearance, decreased arm swing, and decreased stride length. Turns whole body to look side to side due to limited neck ROM. PT-OP-T Assessment and Plan Start: 02/07/23 10:07 Freq: Status: Active Protocol: Document 03/20/23 10:32 SAK (Rec: 03/20/23 11:16 SAK [id number]) Physical Therapy Assessment Impairments Impairments Activity Tolerance,Balance, Functional Activities, Functional Mobility,Gait,Pain, Posture,Sensation,Strength Goals 4 Impairment Balance Short Term Goal (STG) Patient will be able to perform SLS for at least 10 sec B. 03/20/23: good progress, 7 sec STG Duration 4 weeks (03/07/23) - progressing 03/06/23 Assistant Drafter Goal (LTG) Patient will be able to don pants in standing without LOB with HOWIE support. 03/20/23; still has to hold on LTG Duration 8 weeks (04/04/23) 3 Impairment Gait Short Term Goal (STG) Patient will improve 6MWT to at least 1378 ft without AD indicating clinically signficant change in functional mobility tolerance. 03/20/23:some improvement, now able to keep up with , hasn't used cane much, though still using with walking on firm surface. STG Duration 4 weeks (03/07/23) - progressing 03/06/23 Senior Care Goal (LTG) Patient will be able to walk on uneven ground with LRAD ( cane vs trekking poles) for at least 1 mile without LOB. LTG Duration 8 weeks (04/04/23) 2 Impairment Balance Assistant Drafter Goal (LTG) Patient will improve Manuel balance score to 50 indicating low risk for falls. 03/20/23: good goal progress at 47 LTG Duration 8 weeks (04/04/23) 1 Impairment Strength Short Term Goal (STG) Patient will be able to perform 7 STS in 30 seconds indicating increased functional strength. STG Duration 4 weeks (03/07/23) - met 03/06/23 Progress Towards Goals Progress Towards Goals Slow Progress due to Activity Tolerance Assessment Summary Assessment Patient reporting inc left hip pain with radiation after starting clamshell ex; held today. Noted significant leg length discrepancy; left 1/2 longer, not changed with manual techniques, has previously used heel lift, advised to resume. Physical Therapy Plan Frequency and Duration Frequency of Treatment 2x/Week Duration of treatment (weeks) 8 Plan of Care Start Date 02/07/23 Plan of Care End Date 04/04/23 Therapeutic Interventions Therapeutic Interventions Balance Training,Gait Training ,Home Exercise Program, Neuromuscular Re-education, Patient/Caregiver Education, Self-Care/Home Management, Therapeutic Activities, Therapeutic Exercises Next Visit Focus/Plan Next Note Type Treatment Note Next Visit Plan Continue progression of functional strengthening, balance training, gait
--- NOTE | 2023-03-20 16:51 | PT.OTN ---
Current Diagnoses Other abnormalities of gait and mobility (03/20/23) Repeated falls (03/20/23) Physical Therapy Treatment Note PT-OP-A Visit Information Start: 02/07/23 10:07 Freq: Status: Active Protocol: Document 03/20/23 10:32 SAK (Rec: 03/20/23 11:16 [facility] [id number]) Out-Patient Physical Therapy Visit Information Visit Information Visit Type Treatment Note Visit Start Time 10:32 Visit Stop Time 11:15 Total Visit Minutes 43 Visit Number 10 Evaluation Information Evaluation Date 02/07/23 PT-OP-B Current Condition Start: 02/07/23 10:07 Freq: Status: Active Protocol: Document 03/20/23 10:32 SAK (Rec: 03/20/23 11:16 [facility] [id number]) Current Condition History of Current Condition Current Complaints Decreased balance, falls History of Current Condition Patient reports that he has had multiple falls in the past . He has a hx of R knee giving out causing falls before. Last year he fell while walking on uneven ground and hit his head on the ground. His eye socket hit the edge of a stone and ended up with fractured eye socket. Has trouble looking down because he has limited neck ROM due to hx of neck fusion and has stenosis. Had back surgery in 2021 and was sedentary because of that, knows his core is quite weak. Had a stroke about 5 years ago that caused swallowing problems. Denies weakness in arms/legs. Uses a hurrycane more and more lately , particularly on longer walks and in the community. Has trouble walking long distances on concrete; feels like the legs are going to give out, so uses a cane for that which helps. Has neuropathy in both feet. Would like to start going to the senior center for exercise classes again. Future Testing and Treatments Planned Has ENT appt coming up for a L ear issue with popping/ hearing difficulty with associated balance difficulty when it's present. PT-OP-C Subjective Start: 02/07/23 10:07 Freq: Status: Active Protocol: Document 03/20/23 10:32 SAK (Rec: 03/20/23 11:16 SAK [id number]) OP-PT Subjective Patient Comments Patient Comments Reports left lateral hip down to knee sore since starting to do clamshells and figure 4 exercises. Hasn't used any ice or heat. Hasn't gone back for exercises, has Carrington Torres has been thinking about it. PT-OP-D Balance Start: 02/07/23 10:07 Freq: Status: Active Protocol: Document 03/06/23 14:47 ES (Rec: 03/06/23 16:03 ES [id number]) Balance Tests Single Limb Standing Single Limb- Right 2 sec Single Limb- Left 20 sec PT-OP-E Functional Tests Start: 02/07/23 10:07 Freq: Status: Active Protocol: Document 03/06/23 14:47 ES (Rec: 03/06/23 16:03 ES [id number]) Functional Tests 6 Minute Walk Test Distance 1265 ft Device Used no AD Comments Average for age/gender = 1729 ft 30 Second Sit to Stand Test Score 12 Comments Average for age/gender = 12-17 PT-OP-G Mobility & Gait Start: 02/07/23 10:07 Freq: Status: Active Protocol: Document 02/07/23 10:08 ES (Rec: 02/07/23 11:01 ES [id number]) OP Gait Assessment Comments Gait Comments Ambulates with trunk leaning forward and shifted to L, decreased heel-toe pattern and foot clearance, decreased arm swing, and decreased stride length. Turns whole body to look side to side due to limited neck ROM. PT-OP-Q Treatments Start: 02/07/23 10:07 Freq: Status: Active Protocol: Document 03/20/23 10:32 SAK (Rec: 03/20/23 11:16 SAK [id number]) Cardio Equipment Recumbent Stepper (Sci-Fit) Duration (Minutes) 6 Resistance 2.5 Seat Position 9 Other 3 min UE's and LE's, 5 min LE' s only Treadmill Duration (Minutes) 3 Speed 1 Incline 0 Other postural cues, reports left leg feels longer, painful Gym Equipment Cable Column (Body Solid) Leg Curl Resistance 40lb Reps/Time 2x15 Shuttle Recovery Unilateral Squats Resistance 50 Shuttle Recovery Platform Stable Reps/Time 2x12x Bilateral Squats Resistance 62 Shuttle Recovery Platform Stable Reps/Time 10x2 Shuttle Balance Balance training Details Red setting Comments Staggered stance (a/p tilt), normal stance (lateral tilt) Therapeutic Exercises Sidelying Exercises reverse clam Comments not done due to c/o hip pain clam Comments not done due to c/o hip pain Standing Exercises Calf stretch Side bilateral Equipment Used AMOR Reps/Minutes 2x30s ea side Self-Care/Home Management Treatment Education Other Education self-massage with tennis ball left buttock standing and supine with good response PT-OP-T Assessment and Plan Start: 02/07/23 10:07 Freq: Status: Active Protocol: Document 03/20/23 10:32 SAK (Rec: 03/20/23 11:16 SAK [id number]) Physical Therapy Assessment Impairments Impairments Activity Tolerance,Balance, Functional Activities, Functional Mobility,Gait,Pain, Posture,Sensation,Strength Goals 4 Impairment Balance Short Term Goal (STG) Patient will be able to perform SLS for at least 10 sec B. 03/20/23: good progress, 7 sec STG Duration 4 weeks (03/07/23) - progressing 03/06/23 Specialist Field Engineer Goal (LTG) Patient will be able to don pants in standing without LOB with HOWIE support. 03/20/23; still has to hold on LTG Duration 8 weeks (04/04/23) 3 Impairment Gait Short Term Goal (STG) Patient will improve 6MWT to at least 1378 ft without AD indicating clinically signficant change in functional mobility tolerance. 03/20/23:some improvement, now able to keep up with , hasn't used cane much, though still using with walking on firm surface. STG Duration 4 weeks (03/07/23) - progressing 03/06/23 Specialist Field Engineer Goal (LTG) Patient will be able to walk on uneven ground with LRAD ( cane vs trekking poles) for at least 1 mile without LOB. LTG Duration 8 weeks (04/04/23) 2 Impairment Balance Specialist Field Engineer Goal (LTG) Patient will improve Manuel balance score to 50 indicating low risk for falls. 03/20/23: good goal progress at 47 LTG Duration 8 weeks (04/04/23) 1 Impairment Strength Short Term Goal (STG) Patient will be able to perform 7 STS in 30 seconds indicating increased functional strength. STG Duration 4 weeks (03/07/23) - met 03/06/23 Progress Towards Goals Progress Towards Goals Slow Progress due to Activity Tolerance Assessment Summary Assessment Patient reporting inc left hip pain with radiation after starting clamshell ex; held today. Noted significant leg length discrepancy; left 1/2 longer, not changed with manual techniques, has previously used heel lift, advised to resume. Physical Therapy Plan Frequency and Duration Frequency of Treatment 2x/Week Duration of treatment (weeks) 8 Plan of Care Start Date 02/07/23 Plan of Care End Date 04/04/23 Therapeutic Interventions Therapeutic Interventions Balance Training,Gait Training ,Home Exercise Program, Neuromuscular Re-education, Patient/Caregiver Education, Self-Care/Home Management, Therapeutic Activities, Therapeutic Exercises Next Visit Focus/Plan Next Note Type Treatment Note Next Visit Plan Continue progression of functional strengthening, balance training, gait
--- NOTE | 2023-03-20 16:51 | PT.OPPOC ---
Physical, Occupational & Speech Therapy At [facility] Current Diagnoses Other abnormalities of gait and mobility (03/20/23) Repeated falls (03/20/23) Visit Care Team Role Provider Type Elton Dang MD Attending Provider Non-Staff Family Provider Primary Care Provider Referring Provider Specialty: Family Practice Address: [address] [place] [address], [address], [place], [address] Email: Plan Of Care PT-OP-T Assessment and Plan Start: 02/07/23 10:07 Freq: Status: Active Protocol: Document 03/20/23 10:32 SAK (Rec: 03/20/23 11:16 SAK [id number]) Physical Therapy Assessment Impairments Impairments Activity Tolerance,Balance, Functional Activities, Functional Mobility,Gait,Pain, Posture,Sensation,Strength Goals 4 Impairment Balance Short Term Goal (STG) Patient will be able to perform SLS for at least 10 sec B. 03/20/23: good progress, 7 sec STG Duration 4 weeks (03/07/23) - progressing 03/06/23 Senior Living Goal (LTG) Patient will be able to don pants in standing without LOB with HOWIE support. 03/20/23; still has to hold on LTG Duration 8 weeks (04/04/23) 3 Impairment Gait Short Term Goal (STG) Patient will improve 6MWT to at least 1378 ft without AD indicating clinically signficant change in functional mobility tolerance. 03/20/23:some improvement, now able to keep up with , hasn't used cane much, though still using with walking on firm surface. STG Duration 4 weeks (03/07/23) - progressing 03/06/23 Classroom Paraprofessional Goal (LTG) Patient will be able to walk on uneven ground with LRAD ( cane vs trekking poles) for at least 1 mile without LOB. LTG Duration 8 weeks (04/04/23) 2 Impairment Balance Classroom Paraprofessional Goal (LTG) Patient will improve Manuel balance score to 50 indicating low risk for falls. 03/20/23: good goal progress at 47 LTG Duration 8 weeks (04/04/23) 1 Impairment Strength Short Term Goal (STG) Patient will be able to perform 7 STS in 30 seconds indicating increased functional strength. STG Duration 4 weeks (03/07/23) - met 03/06/23 Progress Towards Goals Progress Towards Goals Slow Progress due to Activity Tolerance Assessment Summary Assessment Patient reporting inc left hip pain with radiation after starting clamshell ex; held today. Noted significant leg length discrepancy; left 1/2 longer, not changed with manual techniques, has previously used heel lift, advised to resume. Physical Therapy Plan Frequency and Duration Frequency of Treatment 2x/Week Duration of treatment (weeks) 8 Plan of Care Start Date 02/07/23 Plan of Care End Date 04/04/23 Therapeutic Interventions Therapeutic Interventions Balance Training,Gait Training ,Home Exercise Program, Neuromuscular Re-education, Patient/Caregiver Education, Self-Care/Home Management, Therapeutic Activities, Therapeutic Exercises Next Visit Focus/Plan Next Note Type Treatment Note Next Visit Plan Continue progression of functional strengthening, balance training, gait Plan of Care Dates Plan of Care Start Date 02/07/23 Plan of Care End Date 04/04/23 Electronically Signed by: Tran William, PT 03/20/23 0261 If you are in agreement with this Plan of Care, please return a signed and dated copy. I have reviewed this Plan of Care and certify that the skilled therapy services above are required to meet the patient?s needs. Physician Signature Date Printed Name and Credentials Clinical Instructor Signature Printed Name and Credentials
--- NOTE | 2023-03-22 14:06 | PT-OP ANOTE ---
cancelled PT appointment via [employer]
--- NOTE | 2023-03-29 13:55 | PT.OTN ---
Current Diagnoses Other abnormalities of gait and mobility (03/29/23) Repeated falls (03/29/23) Physical Therapy Treatment Note PT-OP-A Visit Information Start: 02/07/23 10:07 Freq: Status: Active Protocol: Document 03/29/23 10:30 SAK (Rec: 03/29/23 11:15 [facility] [id number]) Out-Patient Physical Therapy Visit Information Visit Information Visit Type Treatment Note Visit Start Time 10:31 Visit Stop Time 11:26 Total Visit Minutes 55 Visit Number 11 PT-OP-B Current Condition Start: 02/07/23 10:07 Freq: Status: Active Protocol: Document 03/29/23 10:30 SAK (Rec: 03/29/23 11:15 [facility] [id number]) Current Condition History of Current Condition Current Complaints Decreased balance, falls History of Current Condition Patient reports that he has had multiple falls in the past . He has a hx of R knee giving out causing falls before. Last year he fell while walking on uneven ground and hit his head on the ground. His eye socket hit the edge of a stone and ended up with fractured eye socket. Has trouble looking down because he has limited neck ROM due to hx of neck fusion and has stenosis. Had back surgery in 2021 and was sedentary because of that, knows his core is quite weak. Had a stroke about 5 years ago that caused swallowing problems. Denies weakness in arms/legs. Uses a hurrycane more and more lately , particularly on longer walks and in the community. Has trouble walking long distances on concrete; feels like the legs are going to give out, so uses a cane for that which helps. Has neuropathy in both feet. Would like to start going to the senior center for exercise classes again. Future Testing and Treatments Planned Has ENT appt coming up for a L ear issue with popping/ hearing difficulty with associated balance difficulty when it's present. PT-OP-C Subjective Start: 02/07/23 10:07 Freq: Status: Active Protocol: Document 03/29/23 10:30 SAK (Rec: 03/29/23 11:15 [facility] [id number]) OP-PT Subjective Patient Comments Patient Comments left hip still bothering him, not as much as last. Cancelled last session due to having company. Wearing small heel lift, may try larger. PT-OP-D Balance Start: 02/07/23 10:07 Freq: Status: Active Protocol: Document 03/06/23 14:47 ES (Rec: 03/06/23 16:03 ES [id number]) Balance Tests Single Limb Standing Single Limb- Right 2 sec Single Limb- Left 20 sec PT-OP-E Functional Tests Start: 02/07/23 10:07 Freq: Status: Active Protocol: Document 03/06/23 14:47 ES (Rec: 03/06/23 16:03 ES [id number]) Functional Tests 6 Minute Walk Test Distance 1265 ft Device Used no AD Comments Average for age/gender = 1729 ft 30 Second Sit to Stand Test Score 12 Comments Average for age/gender = 12-17 PT-OP-G Mobility & Gait Start: 02/07/23 10:07 Freq: Status: Active Protocol: Document 02/07/23 10:08 ES (Rec: 02/07/23 11:01 ES [id number]) OP Gait Assessment Comments Gait Comments Ambulates with trunk leaning forward and shifted to L, decreased heel-toe pattern and foot clearance, decreased arm swing, and decreased stride length. Turns whole body to look side to side due to limited neck ROM. PT-OP-Q Treatments Start: 02/07/23 10:07 Freq: Status: Active Protocol: Document 03/29/23 10:30 SAK (Rec: 03/29/23 11:15 SAK [id number]) Cardio Equipment Recumbent Stepper (Sci-Fit) Duration (Minutes) 6 Resistance 2.5 Seat Position 9 Other 3 min UE's and LE's, 5 min LE' s only Gym Equipment Shuttle Recovery Unilateral Squats Resistance 50 Shuttle Recovery Platform Stable Reps/Time 2x12x Bilateral Squats Resistance 62 Shuttle Recovery Platform Stable Reps/Time 10x2 Shuttle Balance Balance training Details Red setting Comments Staggered stance (a/p tilt), normal stance (lateral tilt) Therapeutic Exercises Supine Exercises DKTC Supine Exercise Name active Equipment Used 55 cm therapy ball Reps/Minutes 10x Comments cues for core activation. lateral trunk flex with IT band stretch Reps/Minutes 2x30 hip abd Reps/Minutes 10x Comments cues to do pain-free ROM bridge Reps/Minutes 10x Comments cues for pelvic tilt and glut set first, segmental lift Manual Therapy Treatment Manual Techniques self massage Type gluteals, l/s Body Location tennis ball, raquetball Comments with hip flex/ext, IR/ER; good feedback response Self-Care/Home Management Treatment Education Other Education self-massage with tennis ball left buttock and LS supine with hip flex/ext IR/ER with good response PT-OP-R Modalities Start: 02/07/23 10:07 Freq: Status: Active Protocol: Document 03/29/23 10:30 SAK (Rec: 03/29/23 11:15 [facility] [id number]) Hot Pack/Cold Pack Treatment Hot Pack Location l/s, SI Patient Position Hooklying Treatment Duration (minutes) 15 Patient Tolerance Good PT-OP-T Assessment and Plan Start: 02/07/23 10:07 Freq: Status: Active Protocol: Document 03/29/23 10:30 SAK (Rec: 03/29/23 11:15 [facility] [id number]) Physical Therapy Assessment Impairments Impairments Activity Tolerance,Balance, Functional Activities, Functional Mobility,Gait,Pain, Posture,Sensation,Strength Goals 4 Impairment Balance Short Term Goal (STG) Patient will be able to perform SLS for at least 10 sec B. 03/20/23: good progress, 7 sec STG Duration 4 weeks (03/07/23) - progressing 03/06/23 Manufacturing Engineer Paint Goal (LTG) Patient will be able to don pants in standing without LOB with HOWIE support. 03/20/23; still has to hold on LTG Duration 8 weeks (04/04/23) 3 Impairment Gait Short Term Goal (STG) Patient will improve 6MWT to at least 1378 ft without AD indicating clinically signficant change in functional mobility tolerance. 03/20/23:some improvement, now able to keep up with , hasn't used cane much, though still using with walking on firm surface. STG Duration 4 weeks (03/07/23) - progressing 03/06/23 Manufacturing Engineer Paint Goal (LTG) Patient will be able to walk on uneven ground with LRAD ( cane vs trekking poles) for at least 1 mile without LOB. LTG Duration 8 weeks (04/04/23) 2 Impairment Balance Detention Goal (LTG) Patient will improve Manuel balance score to 50 indicating low risk for falls. 03/20/23: good goal progress at 47 LTG Duration 8 weeks (04/04/23) 1 Impairment Strength Short Term Goal (STG) Patient will be able to perform 7 STS in 30 seconds indicating increased functional strength. STG Duration 4 weeks (03/07/23) - met 03/06/23 Progress Towards Goals Progress Towards Goals Slow Progress due to Activity Tolerance Assessment Summary Assessment More difficulty with single leg press on left vs right. Physical Therapy Plan Frequency and Duration Frequency of Treatment 2x/Week Duration of treatment (weeks) 8 Plan of Care Start Date 02/07/23 Plan of Care End Date 04/04/23 Therapeutic Interventions Therapeutic Interventions Balance Training,Gait Training ,Home Exercise Program, Neuromuscular Re-education, Patient/Caregiver Education, Self-Care/Home Management, Therapeutic Activities, Therapeutic Exercises Next Visit Focus/Plan Next Note Type Re-Evaluation Next Visit Plan Continue progression of functional strengthening, balance training, gait. Manual work PRN.
--- NOTE | 2023-04-03 11:14 | PT.OTN ---
Current Diagnoses Other abnormalities of gait and mobility (04/03/23) Repeated falls (04/03/23) Physical Therapy Treatment Note PT-OP-A Visit Information Start: 02/07/23 10:07 Freq: Status: Active Protocol: Document 04/03/23 10:29 [facility] (Rec: 04/03/23 11:13 [facility] [id number]) Out-Patient Physical Therapy Visit Information Visit Information Visit Type Treatment Note Visit Start Time 10:31 Visit Stop Time 11:26 Total Visit Minutes 55 Visit Number 12 PT-OP-B Current Condition Start: 02/07/23 10:07 Freq: Status: Active Protocol: Document 04/03/23 10:29 SAK (Rec: 04/03/23 11:13 [facility] [id number]) Current Condition History of Current Condition Current Complaints Decreased balance, falls History of Current Condition Patient reports that he has had multiple falls in the past . He has a hx of R knee giving out causing falls before. Last year he fell while walking on uneven ground and hit his head on the ground. His eye socket hit the edge of a stone and ended up with fractured eye socket. Has trouble looking down because he has limited neck ROM due to hx of neck fusion and has stenosis. Had back surgery in 2021 and was sedentary because of that, knows his core is quite weak. Had a stroke about 5 years ago that caused swallowing problems. Denies weakness in arms/legs. Uses a hurrycane more and more lately , particularly on longer walks and in the community. Has trouble walking long distances on concrete; feels like the legs are going to give out, so uses a cane for that which helps. Has neuropathy in both feet. Would like [facility] for [facility]. Future Testing and Treatments Planned Has ENT appt coming up for a L ear issue with popping/ hearing difficulty with associated balance difficulty when it's present. PT-OP-C Subjective Start: 02/07/23 10:07 Freq: Status: Active Protocol: Document 04/03/23 10:29 SAK (Rec: 04/03/23 11:13 [facility] [id number]) OP-PT Subjective Patient Comments Patient Comments Sore from playing badmiton yesterday, standing in one place. Used tennis ball for self-massage, found helpful. Has not signed up for Silver Sneakers yet. PT-OP-D Balance Start: 02/07/23 10:07 Freq: Status: Active Protocol: Document 03/06/23 14:47 ES (Rec: 03/06/23 16:03 ES [id number]) Balance Tests Single Limb Standing Single Limb- Right 2 sec Single Limb- Left 20 sec PT-OP-E Functional Tests Start: 02/07/23 10:07 Freq: Status: Active Protocol: Document 03/06/23 14:47 ES (Rec: 03/06/23 16:03 ES [id number]) Functional Tests 6 Minute Walk Test Distance 1265 ft Device Used no AD Comments Average for age/gender = 1729 ft 30 Second Sit to Stand Test Score 12 Comments Average for age/gender = 12-17 PT-OP-G Mobility & Gait Start: 02/07/23 10:07 Freq: Status: Active Protocol: Document 02/07/23 10:08 ES (Rec: 02/07/23 11:01 ES [id number]) OP Gait Assessment Comments Gait Comments Ambulates with trunk leaning forward and shifted to L, decreased heel-toe pattern and foot clearance, decreased arm swing, and decreased stride length. Turns whole body to look side to side due to limited neck ROM. PT-OP-Q Treatments Start: 02/07/23 10:07 Freq: Status: Active Protocol: Document 04/03/23 10:29 SAK (Rec: 04/03/23 11:13 [facility] [id number]) Cardio Equipment Recumbent Stepper (Sci-Fit) Duration (Minutes) 8 Resistance 2.5 Seat Position 9 Other 3 min UE's and LE's, 5 min LE' s only Gym Equipment Cable Column (Body Solid) Leg Curl Resistance 40lb Reps/Time 2x15 Shuttle Recovery Unilateral Squats Resistance 50 Shuttle Recovery Platform Stable Reps/Time 2x12x Bilateral Squats Resistance 62 Shuttle Recovery Platform Stable Reps/Time 10x2 Shuttle Balance Balance training Details Red setting Comments Staggered stance (a/p tilt), normal stance (lateral tilt) Therapeutic Exercises Standing Exercises hip flexor stretch Reps/Minutes 2x30 Modified lunge Side bilateral Other Exercises 6 min walk Other Exercise Name 1280 ft Manual Therapy Treatment Manual Techniques self massage Comments reviewed PT-OP-R Modalities Start: 02/07/23 10:07 Freq: Status: Active Protocol: Document 04/03/23 10:29 SAK (Rec: 04/03/23 11:13 [facility] [id number]) Hot Pack/Cold Pack Treatment Hot Pack Location l/s, SI Patient Position Hooklying Treatment Duration (minutes) 15 Patient Tolerance Good PT-OP-T Assessment and Plan Start: 02/07/23 10:07 Freq: Status: Active Protocol: Document 04/03/23 10:29 [facility] (Rec: 04/03/23 11:13 [facility] [id number]) Physical Therapy Assessment Impairments Impairments Activity Tolerance,Balance, Functional Activities, Functional Mobility,Gait,Pain, Posture,Sensation,Strength Goals 4 Impairment Balance Short Term Goal (STG) Patient will be able to perform SLS for at least 10 sec B. 03/20/23: good progress, 7 sec STG Duration 4 weeks (03/07/23) - progressing 03/06/23 Director Stars Goal (LTG) Patient will be able to don pants in standing without LOB with HOWIE support. 03/20/23; still has to hold on 04/03/23: goal progress, still has to hold on some LTG Duration 04/06/23 3 Impairment Gait Short Term Goal (STG) Patient will improve 6MWT to at least 1378 ft without AD indicating clinically signficant change in functional mobility tolerance. 03/20/23:some improvement, now able to keep up with , hasn't used cane much, though still using with walking on firm surface. 04/03/23: 1280 ft today STG Duration 4 weeks (03/07/23) Long-Term Goal (LTG) Patient will be able to walk on uneven ground with LRAD ( cane vs trekking poles) for at least 1 mile without LOB. 04/03/23: not using assistive device. LTG Duration 04/06/23 2 Impairment Balance Director Stars Goal (LTG) Patient will improve Manuel balance score to 50 indicating low risk for falls. 03/20/23: good goal progress at 47 LTG Duration 04/06/23 1 Impairment Strength Short Term Goal (STG) Patient will be able to perform 7 STS in 30 seconds indicating increased functional strength. STG Duration 4 weeks (03/07/23) - met 03/06/23 Long-Term Goal (LTG) 04/03/23: 10x LTG Duration goal met Progress Towards Goals Progress Towards Goals Progressing Toward Goals Assessment Summary Assessment Good goal progress, mostly achieved. Anticipate 1 further PT visit to review HEP , update as indicated. Physical Therapy Plan Frequency and Duration Frequency of Treatment 2x/Week Duration of treatment (weeks) 1 Plan of Care Start Date 04/03/23 Plan of Care End Date 04/04/23 Therapeutic Interventions Therapeutic Interventions Balance Training,Gait Training ,Home Exercise Program, Neuromuscular Re-education, Patient/Caregiver Education, Self-Care/Home Management, Therapeutic Activities, Therapeutic Exercises Next Visit Focus/Plan Next Note Type Treatment Note Next Visit Plan Patient to sign up for Silver Sneakers between now and next appointment. 1 further PT appointment then discharge to independent HEP and community based exercise program.
--- NOTE | 2023-04-03 13:09 | PT.OTRE ---
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) Recurrent major depressive disorder, in full remission RLS (restless legs syndrome) Shortness of breath Type 2 diabetes mellitus without complication Undescended testicle of both sides Surgical History (Last Reviewed 02/01/21 @ 13:16 by Corinna Hawk DO) History of spinal fusion Visit Care Team Role Provider Type Elton Dang MD Attending Provider Non-Staff Family Provider Primary Care Provider Referring Provider Specialty: Family Practice Address: [address] [place] [address], [address], [place], [address] Email: Physical Therapy Re-Evaluation PT-OP-A Visit Information Start: 02/07/23 10:07 Freq: Status: Active Protocol: Document 04/03/23 10:29 [facility] (Rec: 04/03/23 11:13 [facility] [id number]) Out-Patient Physical Therapy Visit Information Visit Information Visit Type Treatment Note Visit Start Time 10:31 Visit Stop Time 11:26 Total Visit Minutes 55 Visit Number 12 PT-OP-B Current Condition Start: 02/07/23 10:07 Freq: Status: Active Protocol: Document 04/03/23 10:29 [facility] (Rec: 04/03/23 11:13 [facility] [id number]) Current Condition History of Current Condition Current Complaints Decreased balance, falls History of Current Condition Patient reports that he has had multiple falls in the past . He has a hx of R knee giving out causing falls before. Last year he fell while walking on uneven ground and hit his head on the ground. His eye socket hit the edge of a stone and ended up with fractured eye socket. Has trouble looking down because he has limited neck ROM due to hx of neck fusion and has stenosis. Had back surgery in 2021 and was sedentary because of that, knows his core is quite weak. Had a stroke about 5 years ago that caused swallowing problems. Denies weakness in arms/legs. Uses a hurrycane more and more lately , particularly on longer walks and in the community. Has trouble walking long distances on concrete; feels like the legs are going to give out, so uses a cane for that which helps. Has neuropathy in both feet. Would like to start going to the senior center for exercise classes again. Future Testing and Treatments Planned Has ENT appt coming up for a L ear issue with popping/ hearing difficulty with associated balance difficulty when it's present. PT-OP-C Subjective Start: 02/07/23 10:07 Freq: Status: Active Protocol: Document 04/03/23 10:29 [facility] (Rec: 04/03/23 11:13 [facility] [id number]) OP-PT Subjective Patient Comments Patient Comments Sore from playing [place] yesterday, standing in one place. Used tennis ball for self-massage, found helpful. Has not signed up for Silver Sneakers yet. PT-OP-D Balance Start: 02/07/23 10:07 Freq: Status: Active Protocol: Document 03/06/23 14:47 ES (Rec: 03/06/23 16:03 ES [id number]) Balance Tests Single Limb Standing Single Limb- Right 2 sec Single Limb- Left 20 sec PT-OP-E Functional Tests Start: 02/07/23 10:07 Freq: Status: Active Protocol: Document 03/06/23 14:47 ES (Rec: 03/06/23 16:03 ES [id number]) Functional Tests 6 Minute Walk Test Distance 1265 ft Device Used no AD Comments Average for age/gender = 1729 ft 30 Second Sit to Stand Test Score 12 Comments Average for age/gender = 12-17 PT-OP-G Mobility & Gait Start: 02/07/23 10:07 Freq: Status: Active Protocol: Document 02/07/23 10:08 ES (Rec: 02/07/23 11:01 ES [id number]) OP Gait Assessment Comments Gait Comments Ambulates with trunk leaning forward and shifted to L, decreased heel-toe pattern and foot clearance, decreased arm swing, and decreased stride length. Turns whole body to look side to side due to limited neck ROM. PT-OP-Q Treatments Start: 02/07/23 10:07 Freq: Status: Active Protocol: Document 04/03/23 10:29 [facility] (Rec: 04/03/23 11:13 [facility] [id number]) Cardio Equipment Recumbent Stepper (Sci-Fit) Duration (Minutes) 8 Resistance 2.5 Seat Position 9 Other 3 min UE's and LE's, 5 min LE' s only Gym Equipment Cable Column (Body Solid) Leg Curl Resistance 40lb Reps/Time 2x15 Shuttle Recovery Unilateral Squats Resistance 50 Shuttle Recovery Platform Stable Reps/Time 2x12x Bilateral Squats Resistance 62 Shuttle Recovery Platform Stable Reps/Time 10x2 Shuttle Balance Balance training Details Red setting Comments Staggered stance (a/p tilt), normal stance (lateral tilt) Therapeutic Exercises Standing Exercises hip flexor stretch Reps/Minutes 2x30 Modified lunge Side bilateral Other Exercises 6 min walk Other Exercise Name 1280 ft Manual Therapy Treatment Manual Techniques self massage Comments reviewed PT-OP-R Modalities Start: 02/07/23 10:07 Freq: Status: Active Protocol: Document 04/03/23 10:29 [facility] (Rec: 04/03/23 11:13 [facility] [id number]) Hot Pack/Cold Pack Treatment Hot Pack Location l/s, SI Patient Position Hooklying Treatment Duration (minutes) 15 Patient Tolerance Good PT-OP-T Assessment and Plan Start: 02/07/23 10:07 Freq: Status: Active Protocol: Document 04/03/23 10:29 [facility] (Rec: 04/03/23 11:13 [facility] [id number]) Physical Therapy Assessment Impairments Impairments Activity Tolerance,Balance, Functional Activities, Functional Mobility,Gait,Pain, Posture,Sensation,Strength Goals 4 Impairment Balance Short Term Goal (STG) Patient will be able to perform SLS for at least 10 sec B. 03/20/23: good progress, 7 sec STG Duration 4 weeks (03/07/23) - progressing 03/06/23 Rubber Vulcanizing Machine Operator Goal (LTG) Patient will be able to don pants in standing without LOB with HOWIE support. 03/20/23; still has to hold on 04/03/23: goal progress, still has to hold on some LTG Duration 04/06/23 3 Impairment Gait Short Term Goal (STG) Patient will improve 6MWT to at least 1378 ft without AD indicating clinically signficant change in functional mobility tolerance. 03/20/23:some improvement, now able to keep up with , hasn't used cane much, though still using with walking on firm surface. 04/03/23: 1280 ft today STG Duration 4 weeks (03/07/23) [facility] Goal (LTG) Patient will be able to walk on uneven ground with LRAD ( cane vs trekking poles) for at least 1 mile without LOB. 04/03/23: not using assistive device. LTG Duration 04/06/23 2 Impairment Balance Rubber Vulcanizing Machine Operator Goal (LTG) Patient will improve Manuel balance score to 50 indicating low risk for falls. 03/20/23: good goal progress at 47 LTG Duration 04/06/23 1 Impairment Strength Short Term Goal (STG) Patient will be able to perform 7 STS in 30 seconds indicating increased functional strength. STG Duration 4 weeks (03/07/23) - met 03/06/23 Rubber Vulcanizing Machine Operator Goal (LTG) 04/03/23: 10x LTG Duration goal met Progress Towards Goals Progress Towards Goals Progressing Toward Goals Assessment Summary Assessment Good goal progress, mostly achieved. Anticipate 1 further PT visit to review HEP , update as indicated. Physical Therapy Plan Frequency and Duration Frequency of Treatment 1x/Week Duration of treatment (weeks) 1 Plan of Care Start Date 04/03/23 Plan of Care End Date 04/11/23 Therapeutic Interventions Therapeutic Interventions Balance Training,Gait Training ,Home Exercise Program, Neuromuscular Re-education, Patient/Caregiver Education, Self-Care/Home Management, Therapeutic Activities, Therapeutic Exercises Next Visit Focus/Plan Next Note Type Treatment Note Next Visit Plan Patient to sign up for Carrington Torres between now and next appointment. 1 further PT appointment then discharge to independent HEP and community based exercise program.
--- NOTE | 2023-04-03 13:09 | PT.OPPOC ---
Physical, Occupational & Speech Therapy At [facility] Current Diagnoses Other abnormalities of gait and mobility (04/03/23) Repeated falls (04/03/23) Visit Care Team Role Provider Type Elton Dang MD Attending Provider Non-Staff Family Provider Primary Care Provider Referring Provider Specialty: Family Practice Address: [address] [place] [address], [address], [place], [address] Email: Plan Of Care PT-OP-T Assessment and Plan Start: 02/07/23 10:07 Freq: Status: Active Protocol: Document 04/03/23 10:29 [facility] (Rec: 04/03/23 11:13 [facility] [id number]) Physical Therapy Assessment Impairments Impairments Activity Tolerance,Balance, Functional Activities, Functional Mobility,Gait,Pain, Posture,Sensation,Strength Goals 4 Impairment Balance Short Term Goal (STG) Patient will be able to perform SLS for at least 10 sec B. 03/20/23: good progress, 7 sec STG Duration 4 weeks (03/07/23) - progressing 03/06/23 Custodial Goal (LTG) Patient will be able to don pants in standing without LOB with HOWIE support. 03/20/23; still has to hold on 04/03/23: goal progress, still has to hold on some LTG Duration 04/06/23 3 Impairment Gait Short Term Goal (STG) Patient will improve 6MWT to at least 1378 ft without AD indicating clinically signficant change in functional mobility tolerance. 03/20/23:some improvement, now able to keep up with , hasn't used cane much, though still using with walking on firm surface. 04/03/23: 1280 ft today STG Duration 4 weeks (03/07/23) Custodial Goal (LTG) Patient will be able to walk on uneven ground with LRAD ( cane vs trekking poles) for at least 1 mile without LOB. 04/03/23: not using assistive device. LTG Duration 04/06/23 2 Impairment Balance Day Care Teacher Goal (LTG) Patient will improve Manuel balance score to 50 indicating low risk for falls. 03/20/23: good goal progress at 47 LTG Duration 04/06/23 1 Impairment Strength Short Term Goal (STG) Patient will be able to perform 7 STS in 30 seconds indicating increased functional strength. STG Duration 4 weeks (03/07/23) - met 03/06/23 Custodial Goal (LTG) 04/03/23: 10x LTG Duration goal met Progress Towards Goals Progress Towards Goals Progressing Toward Goals Assessment Summary Assessment Good goal progress, mostly achieved. Anticipate 1 further PT visit to review HEP , update as indicated. Physical Therapy Plan Frequency and Duration Frequency of Treatment 1x/Week Duration of treatment (weeks) 1 Plan of Care Start Date 04/03/23 Plan of Care End Date 04/11/23 Therapeutic Interventions Therapeutic Interventions Balance Training,Gait Training ,Home Exercise Program, Neuromuscular Re-education, Patient/Caregiver Education, Self-Care/Home Management, Therapeutic Activities, Therapeutic Exercises Next Visit Focus/Plan Next Note Type Treatment Note Next Visit Plan Patient to sign up for Carrington Torres between now and next appointment. 1 further PT appointment then discharge to independent [facility] and community based exercise program. Plan of Care Dates Plan of Care Start Date 04/03/23 Plan of Care End Date 04/11/23 Electronically Signed by: Tran William, PT 04/03/23 5246 If you are in agreement with this Plan of Care, please return a signed and dated copy. I have reviewed this Plan of Care and certify that the skilled therapy services above are required to meet the patient?s needs. Physician Signature Date Printed Name and Credentials Clinical Instructor Signature Printed Name and Credentials
--- NOTE | 2023-04-05 10:30 | PT.OTN ---
Current Diagnoses Other abnormalities of gait and mobility (04/05/23) Repeated falls (04/05/23) Physical Therapy Treatment Note PT-OP-A Visit Information Start: 02/07/23 10:07 Freq: Status: Active Protocol: Document 04/05/23 10:32 SAK (Rec: 04/05/23 11:18 [facility] [id number]) Out-Patient Physical Therapy Visit Information Visit Information Visit Type Treatment Note Visit Start Time 10:31 Visit Stop Time 11:26 Total Visit Minutes 55 Visit Number 13 PT-OP-B Current Condition Start: 02/07/23 10:07 Freq: Status: Active Protocol: Document 04/05/23 10:32 SAK (Rec: 04/05/23 11:18 [facility] [id number]) Current Condition History of Current Condition Current Complaints Decreased balance, falls History of Current Condition Patient reports that he has had multiple falls in the past . He has a hx of R knee giving out causing falls before. Last year he fell while walking on uneven ground and hit his head on the ground. His eye socket hit the edge of a stone and ended up with fractured eye socket. Has trouble looking down because he has limited neck ROM due to hx of neck fusion and has stenosis. Had back surgery in 2021 and was sedentary because of that, knows his core is quite weak. Had a stroke about 5 years ago that caused swallowing problems. Denies weakness in arms/legs. Uses a hurrycane more and more lately , particularly on longer walks and in the community. Has trouble walking long distances on concrete; feels like the legs are going to give out, so uses a cane for that which helps. Has neuropathy in both feet. [facility]. Future Testing and Treatments Planned Has ENT appt coming up for a L ear issue with popping/ hearing difficulty with associated balance difficulty when it's present. PT-OP-C Subjective Start: 02/07/23 10:07 Freq: Status: Active Protocol: Document 04/05/23 10:32 SAK (Rec: 04/05/23 11:18 [facility] [id number]) OP-PT Subjective Patient Comments Patient Comments Joining [employer] today. agreeable to discharge from PT today after review and updating HEP as needed; brought written HEP as instructed. PT-OP-D Balance Start: 02/07/23 10:07 Freq: Status: Active Protocol: Document 03/06/23 14:47 ES (Rec: 03/06/23 16:03 ES [id number]) Balance Tests Single Limb Standing Single Limb- Right 2 sec Single Limb- Left 20 sec PT-OP-E Functional Tests Start: 02/07/23 10:07 Freq: Status: Active Protocol: Document 03/06/23 14:47 ES (Rec: 03/06/23 16:03 ES [id number]) Functional Tests 6 Minute Walk Test Distance 1265 ft Device Used no AD Comments Average for age/gender = 1729 ft 30 Second Sit to Stand Test Score 12 Comments Average for age/gender = 12-17 PT-OP-G Mobility & Gait Start: 02/07/23 10:07 Freq: Status: Active Protocol: Document 02/07/23 10:08 ES (Rec: 02/07/23 11:01 ES [id number]) OP Gait Assessment Comments Gait Comments Ambulates with trunk leaning forward and shifted to L, decreased heel-toe pattern and foot clearance, decreased arm swing, and decreased stride length. Turns whole body to look side to side due to limited neck ROM. PT-OP-Q Treatments Start: 02/07/23 10:07 Freq: Status: Active Protocol: Document 04/05/23 10:32 SAK (Rec: 04/05/23 11:18 SAK [id number]) Cardio Equipment Recumbent Stepper (Sci-Fit) Duration (Minutes) 8 Resistance 2.5 Seat Position 9 Other 3 min UE's and LE's, 5 min LE' s only Gym Equipment Cable Column (Body Solid) Leg Curl Resistance 40lb Reps/Time 2x15 Shuttle Recovery Unilateral Squats Resistance 50 Shuttle Recovery Platform Stable Reps/Time 2x12x Bilateral Squats Resistance 62 Shuttle Recovery Platform Stable Reps/Time 10x2 Shuttle Balance Balance training Details Red setting Comments Staggered stance (a/p tilt), normal stance (lateral tilt) Therapeutic Exercises Supine Exercises LEG LOWERING Reps/Minutes 10 Comments cues for PPT SUPINE CLAM Reps/Minutes 10X pelvic tilt Reps/Minutes 10x5 bridge Supine Exercise Name JOE AND UNIL Reps/Minutes 10X Self-Care/Home Management Treatment Education Patient Education Body Mechanics,Home Exercise Program Other Education reviewed HEP; updated with further written HEP to modify and update for continued LE strengthening. PT-OP-R Modalities Start: 02/07/23 10:07 Freq: Status: Active Protocol: Document 04/05/23 10:32 [facility] (Rec: 04/05/23 11:18 [facility] [id number]) Hot Pack/Cold Pack Treatment Hot Pack Location l/s, SI Patient Position Hooklying Treatment Duration (minutes) 15 Patient Tolerance Good PT-OP-T Assessment and Plan Start: 02/07/23 10:07 Freq: Status: Active Protocol: Document 04/05/23 10:32 [facility] (Rec: 04/06/23 12:56 [facility] [id number]) Physical Therapy Assessment Impairments Impairments Activity Tolerance,Balance, Functional Activities, Functional Mobility,Gait,Pain, Posture,Sensation,Strength Goals 4 Impairment Balance Short Term Goal (STG) Patient will be able to perform SLS for at least 10 sec B. 03/20/23: good progress, 7 sec STG Duration 4 weeks (03/07/23) - progressing 03/06/23 Straddle Bug Goal (LTG) Patient will be able to don pants in standing without LOB with HOWIE support. 03/20/23; still has to hold on 04/03/23: goal progress, still has to hold on some LTG Duration 04/06/23 3 Impairment Gait Short Term Goal (STG) Patient will improve 6MWT to at least 1378 ft without AD indicating clinically signficant change in functional mobility tolerance. 03/20/23:some improvement, now able to keep up with , hasn't used cane much, though still using with walking on firm surface. 04/03/23: 1280 ft today STG Duration 4 weeks (03/07/23) Senior Living Goal (LTG) Patient will be able to walk on uneven ground with LRAD ( cane vs trekking poles) for at least 1 mile without LOB. 04/03/23: not using assistive device. LTG Duration 04/06/23 2 Impairment Balance Senior Living Goal (LTG) Patient will improve Manuel balance score to 50 indicating low risk for falls. 03/20/23: good goal progress at 47 LTG Duration 04/06/23 1 Impairment Strength Short Term Goal (STG) Patient will be able to perform 7 STS in 30 seconds indicating increased functional strength. STG Duration 4 weeks (03/07/23) - met 7/3/23 Senior Living Goal (LTG) 04/03/23: 10x LTG Duration goal met Progress Towards Goals Progress Towards Goals Progressing Toward Goals Assessment Summary Assessment Good goal progress as above. HEP modified and patient issued updated written HEP with emphasis on hip strengthening, improved postural alignment and core stab. Patient to be discharged after today's treatmen. Physical Therapy Plan Discharge Physical Therapy Discharge Reasons Plateau in Progress Discharge Comments Patient independent in HEP and plans to joint Silver Sneakers today to do land and aquatic-based exercise.
--- NOTE | 2023-04-05 12:56 | PT.OPDS ---
Current Diagnoses Other abnormalities of gait and mobility (04/05/23) Repeated falls (04/05/23) Visit Care Team Role Provider Type Elton Dang MD Attending Provider Non-Staff Family Provider Primary Care Provider Referring Provider Specialty: Family Practice Address: [address] [place] [address], [address], [place], [address] Email: Visit Number Visit Number 13 Discharge Summary PT-OP-B Current Condition Start: 02/07/23 10:07 Freq: Status: Active Protocol: Document 04/05/23 10:32 SAK (Rec: 04/05/23 11:18 [facility] [id number]) Current Condition History of Current Condition Current Complaints Decreased balance, falls History of Current Condition Patient reports that he has had multiple falls in the past . He has a hx of R knee giving out causing falls before. Last year he fell while walking on uneven ground and hit his head on the ground. His eye socket hit the edge of a stone and ended up with fractured eye socket. Has trouble looking down because he has limited neck ROM due to hx of neck fusion and has stenosis. Had back surgery in 2021 and was sedentary because of that, knows his core is quite weak. Had a stroke about 5 years ago that caused swallowing problems. Denies weakness in arms/legs. Uses a hurrycane more and more lately , particularly on longer walks and in the community. Has trouble walking long distances on concrete; feels like the legs are going to give out, so uses a cane for that which helps. Has neuropathy in both feet. Would like to start going to the [facility] for exercise classes again. Future Testing and Treatments Planned Has ENT appt coming up for a L ear issue with popping/ hearing difficulty with associated balance difficulty when it's present. PT-OP-C Subjective Start: 02/07/23 10:07 Freq: Status: Active Protocol: Document 04/05/23 10:32 SAK (Rec: 04/05/23 11:18 [facility] [id number]) OP-PT Subjective Patient Comments Patient Comments Joining [employer] today. agreeable to discharge from PT today after review and updating HEP as needed; brought written HEP as instructed. PT-OP-D Balance Start: 02/07/23 10:07 Freq: Status: Active Protocol: Document 03/06/23 14:47 ES (Rec: 03/06/23 16:03 ES [id number]) Balance Tests Single Limb Standing Single Limb- Right 2 sec Single Limb- Left 20 sec PT-OP-E Functional Tests Start: 02/07/23 10:07 Freq: Status: Active Protocol: Document 03/06/23 14:47 ES (Rec: 03/06/23 16:03 ES [id number]) Functional Tests 6 Minute Walk Test Distance 1265 ft Device Used no AD Comments Average for age/gender = 1729 ft 30 Second Sit to Stand Test Score 12 Comments Average for age/gender = 12-17 PT-OP-G Mobility & Gait Start: 02/07/23 10:07 Freq: Status: Active Protocol: Document 02/07/23 10:08 ES (Rec: 02/07/23 11:01 ES [id number]) OP Gait Assessment Comments Gait Comments Ambulates with trunk leaning forward and shifted to L, decreased heel-toe pattern and foot clearance, decreased arm swing, and decreased stride length. Turns whole body to look side to side due to limited neck ROM. PT-OP-T Assessment and Plan Start: 02/07/23 10:07 Freq: Status: Active Protocol: Document 04/05/23 10:32 SAK (Rec: 04/06/23 12:56 SAK [id number]) Physical Therapy Assessment Impairments Impairments Activity Tolerance,Balance, Functional Activities, Functional Mobility,Gait,Pain, Posture,Sensation,Strength Goals 4 Impairment Balance Short Term Goal (STG) Patient will be able to perform SLS for at least 10 sec B. 03/20/23: good progress, 7 sec STG Duration 4 weeks (03/07/23) - progressing 03/06/23 Custodial Goal (LTG) Patient will be able to don pants in standing without LOB with HOWIE support. 03/20/23; still has to hold on 04/03/23: goal progress, still has to hold on some LTG Duration 04/06/23 3 Impairment Gait Short Term Goal (STG) Patient will improve 6MWT to at least 1378 ft without AD indicating clinically signficant change in functional mobility tolerance. 03/20/23:some improvement, now able to keep up with , hasn't used cane much, though still using with walking on firm surface. 04/03/23: 1280 ft today STG Duration 4 weeks (03/07/23) Custodial Goal (LTG) Patient will be able to walk on uneven ground with LRAD ( cane vs trekking poles) for at least 1 mile without LOB. 04/03/23: not using assistive device. LTG Duration 04/06/23 2 Impairment Balance Automatic Embroidery Machine Tender Goal (LTG) Patient will improve Manuel balance score to 50 indicating low risk for falls. 03/20/23: good goal progress at 47 LTG Duration 04/06/23 1 Impairment Strength Short Term Goal (STG) Patient will be able to perform 7 STS in 30 seconds indicating increased functional strength. STG Duration 4 weeks (03/07/23) - met 03/06/23 Custodial Goal (LTG) 04/03/23: 10x LTG Duration goal met Progress Towards Goals Progress Towards Goals Progressing Toward Goals Assessment Summary Assessment Good goal progress as above. HEP modified and patient issued updated written HEP with emphasis on hip strengthening, improved postural alignment and core stab. Patient to be discharged after today's treatmen. Physical Therapy Plan Discharge Physical Therapy Discharge Reasons Plateau in Progress Discharge Comments Patient independent in HEP and plans to joint [employer]neakers today to do land and aquatic-based exercise.
== END 2023-04-13 09:45 | disposition home or self-care (01) ==
LOC: PHYS 10:30
PROVIDERS: Absent Provider Family Medicine; Family Provider Family Medicine; PCP Family Medicine; Referring Provider Family Medicine; Visit Provider Family Medicine
DX: R26.89 Other abnormalities of gait and mobility (principal); R29.6 Repeated falls
CPT/HCPCS: 97110; 97112; 97162; 97535

== ENCOUNTER → 2023-07-04 11:16 | Outpatient (CLI) | payer OTHER, SELFPAY ==
[2020-02-13 13:21] VITALS: BMI 36.6
[2023-07-04 13:37] LABS: Cholesterol 161 mg/dL (140-199); HDL Cholesterol 49 mg/dL (40-60); LDL Cholesterol Calculated 94 mg/dL (<100); Triglycerides 89 mg/dL (35-150); VLDL Cholesterol Calculated 18 mg/dL (2-30)
== END ==
PROVIDERS: Family Provider Family Medicine; PCP Family Medicine; Referring Provider Psychiatry & Neurology Neuromuscular Medicine; Visit Provider Psychiatry & Neurology Neuromuscular Medicine
DX: I65.03 Occlusion and stenosis of bilateral vertebral arteries (principal)
CPT/HCPCS: 36415; 80061

== ENCOUNTER 2023-08-11 10:55 | Emergency (ER) | payer OTHER, SELFPAY ==
[2020-02-13 13:21] VITALS: BMI 36.6
[2023-08-11] VITALS (28 sets, daily range): BP systolic 132–198; BP diastolic 65–86; PULSE 52–67; RESP 11–25; TEMP 35.6; O2SAT 91–98; BMI 31.8
[2023-08-11] MEDS: SODIUM CHLORIDE IRRIG SOLUTION 2,000 ML 2000 ML IRR (13:00)
[2023-08-11] MEDS: LIDOCAINE 2% (GLYDO) 6 ML GEL TOP (13:00)
--- NOTE | 2023-08-11 13:12 | PC.NURSE ---
Pt had a 16 micronesian catheter inserted at 1220. It drained 1L and then blood clotted the line. RN attempted to flush catheter with no success in reestablishing drainage. Per provider, catheter was removed and order placed for [address] was inserted. Urine draining, saline irrigation infusing. Pt instructed to call with worsening pressure.
--- NOTE | 2023-08-11 14:11 | ED.MALEGU ---
HPI - Male Genitourinary General Chief complaint: Urogenital-Male Stated complaint: difficulty urinating Time Seen by Provider: 08/11/23 14:03 Source: patient Mode of arrival: Ambulatory History of Present Illness HPI Narrative: Patient is a 73-year-old male history of CVA, diabetes, hypertension who presents today with inability to urinate. Foster catheter was immediately placed he had greater than a L out and now has gross hematuria. He is still having some mild abdominal discomfort. Denies chest pain shortness of breath fever any symptoms. Not had hematuria before but has had anemia. Ran out of flomax 1 week ago. Related Data Home Medications Medication Instructions Recorded Confirmed amlodipine 5 mg tablet 10 mg PO BEDTIME 09/30/19 02/01/21 clopidogrel 75 mg tablet 75 mg PO DAILY 09/30/19 02/01/21 duloxetine 30 mg capsule,delayed 30 mg PO BEDTIME 09/30/19 02/01/21 release metformin 500 mg tablet 1,000 mg PO BIDCC 09/30/19 02/01/21 (Glucophage) tamsulosin 0.4 mg capsule (Flomax) 0.12 mg PO QDAY 09/30/19 02/01/21 atorvastatin 20 mg tablet (Lipitor) 20 mg PO BEDTIME 02/13/20 02/01/21 Previous Rx's Medication Instructions Recorded lisinopril 20 mg tablet 20 mg PO QDAY #90 tabs 09/07/18 baclofen 20 mg tablet See Rx Instructions .Route 02/04/19 .COMPLEX #270 tabs clonazepam 1 mg tablet 0.5 mg (1/2 x 1 mg) PO HS #30 tabs 04/24/19 albuterol sulfate 90 mcg/actuation 1 puff inhalation PRN PRN 12/03/19 aerosol inhaler (Ventolin HFA) bronchospasm #18 inhalations pantoprazole 40 mg tablet,delayed 40 mg PO BID Gastritis with anemia 09/11/20 release #60 tabs amoxicillin 875 mg-potassium 1 tab PO Q12H #20 tabs 02/01/21 clavulanate 125 mg tablet (Augmentin) hydrocodone 5 mg-acetaminophen 325 1 tab PO Q6H PRN pain #7 tabs 02/01/21 mg tablet hydrocodone 5 mg-acetaminophen 325 1 tab PO QID PRN pain #10 tabs 05/31/21 mg tablet Allergies Allergy/AdvReac Type Severity Reaction Status Date / Time No Known Drug Allergies Allergy Verified 08/11/23 10:59 Patient History Medical History (Updated 08/11/23 @ 19:42 by Nettie Hicks DO) Claustrophobia Easy bruisability Undescended testicle of both sides Shortness of breath RLS (restless legs syndrome) Cervical stenosis of spinal canal Adopted Depression Anxiety Poor sleep Myelopathy BPH (benign prostatic hyperplasia) Cervical myelopathy (11/16/17) Iron deficiency (07/31/17) Essential hypertension (07/14/14) 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/moravian: Religion travel history: recurrent ([place] every 1-2 years.) leisure activities: reading and other (Gardening) Smoking Status: Former smoker Tobacco: How many years used: 40 Smokeless tobacco user: other (Cigarettes) quit status: quit date established (2005) second hand exposure: No alcohol intake: current substance use type: does not use Smoking Status: Former smoker alcohol intake frequency: holidays/special occasions only Substance Use Type: does not use Exam Initial Vital Signs Initial Vital Signs: Vital Signs Temperature 96.0 F L 08/11/23 10:59 Pulse Rate 52 L 08/11/23 10:59 Respiratory Rate 15 08/11/23 10:59 Blood Pressure 155/67 H 08/11/23 10:59 Pulse Oximetry 98 08/11/23 10:59 Oxygen Delivery Method Room Air 08/11/23 10:59 GENERAL: Alert pleasant 73-year-old male and in no acute distress. HEENT: Head atraumatic,EOMI, pupils reactive, face symmetric, moist mucous membranes CARDIOVASCULAR: Regular rate and rhythm without murmurs, rubs or gallops. RESPIRATORY: Breath sounds equal bilaterally, no wheezes rales or rhonchi. ABDOMEN: Soft, nontender. Normoactive bowel sounds all 4 quadrants. No guarding or rebound. : Foster catheter placed gross blood still present after continuous saline EXTREMITIES: Normal range of motion, no clubbing or edema. Neurovascularly intact NEUROLOGICAL: Alert and oriented x4.Normal gait and speech. SKIN: Warm, dry, no laceration, no petechiae, no rashes or lesions. Course Orders Ordered: Discontinued Medications Lidocaine HCl (Lidocaine 2% (Glydo) 6 Ml Gel) 6 ml TOP NOW ONE Stop: 08/11/23 12:34 Last Admin: 08/11/23 13:00 Dose: 6 ml Documented By: SPF Sodium Chloride (Sodium Chloride Irrig Solution 1,000 Ml) 2,000 ml IRR NOW ONE Stop: 08/11/23 14:11 Last Admin: 08/11/23 15:24 Dose: Not Given Documented By: SPF Sodium Chloride (Sodium Chloride Irrig Solution 2,000 Ml) 2,000 ml IRR NOW ONE Stop: 08/11/23 14:31 Last Admin: 08/11/23 13:00 Dose: 2,000 ml Documented By: SPF Sterile Water (Water For Irrigation 500 Ml Irrig.Soln) 3,000 ml IRR NOW ONE Stop: 08/11/23 14:08 Last Admin: 08/11/23 15:56 Dose: Not Given Documented By: SPF Sterile Water (Water For Irrigation,Sterile 3,000 Ml) 3,000 ml IRR NOW ONE Stop: 08/11/23 14:31 Last Admin: 08/11/23 15:24 Dose: 3,000 ml Documented By: SPF Sterile Water (Water For Irrigation,Sterile 3,000 Ml) 3,000 ml IRR NOW ONE Stop: 08/11/23 15:56 Last Admin: 08/11/23 15:58 Dose: 3,000 ml Documented By: TATIANNA Vital Signs Vital signs: Vital Signs - 8 hr 08/11/23 11:47 08/11/23 11:48 08/11/23 11:48 Pulse Rate 57 L Respiratory Rate Blood Pressure 132/70 Pulse Oximetry 93 94 Oxygen Delivery Method 08/11/23 12:00 08/11/23 12:30 08/11/23 12:31 Pulse Rate 67 55 L 56 L Respiratory Rate Blood Pressure Pulse Oximetry 96 94 Oxygen Delivery Method Room Air 08/11/23 12:31 08/11/23 13:00 08/11/23 13:01 Pulse Rate 58 L 53 L Respiratory Rate 25 H 21 Blood Pressure 188/82 H Pulse Oximetry 95 98 Oxygen Delivery Method Room Air Room Air 08/11/23 13:01 08/11/23 13:30 08/11/23 13:31 Pulse Rate 58 L 60 Respiratory Rate 13 14 Blood Pressure 198/79 H Pulse Oximetry 96 95 Oxygen Delivery Method 08/11/23 13:31 08/11/23 13:55 08/11/23 14:00 Pulse Rate 64 63 Respiratory Rate 17 20 Blood Pressure 198/86 H Pulse Oximetry 95 95 Oxygen Delivery Method Room Air 08/11/23 14:15 Pulse Rate Respiratory Rate Blood Pressure 166/74 H Pulse Oximetry Oxygen Delivery Method MDM - Male Genitourinary Lab Data 08/11/23 14:10 08/11/23 14:02 Labs: Lab Results 08/11/23 08/11/23 Range/Units 14:02 14:10 WBC 7.9 (4.5-11.0) X10^3/uL RBC 4.53 (4.5-5.9) X10^6/uL Hgb 12.9 L 12.5 L (13.5-17.5) g/dL Hct 39.3 L 38.2 L (41-53) % MCV 86.8 (80-100) fL MCH 28.5 (26-34) PG MCHC 32.9 (30-36) % RDW 15.5 H (11.6-14.8) % Plt Count 221 (150-400) X10^3/uL Neut % (Auto) 63.3 (50-75) % Lymph % (Auto) 23.6 L (25-40) % [place] % (Auto) 9.9 (3-14) % Eos % (Auto) 2.4 (2-4) % Baso % (Auto) 0.8 (0-2) % Neut # (Auto) 5000 (4041-8829) /uL Lymph # (Auto) 1900 (0885-8953) /uL [place] # (Auto) 800 (0-900) /uL Eos # (Auto) 200 (0-450) /uL Baso # (Auto) 100 (0-100) /uL PT 11.7 (9.4-12.5) SECONDS INR 1.0 (0.9-1.3) APTT 32 (25.1-36.5) SECONDS Sodium 138 (137-145) mmol/L Potassium 4.2 (3.4-5.1) mmol/L Chloride 101 (98-107) mmol/L Carbon Dioxide 29 (22-32) mmol/L BUN 29 H (9-20) mg/dL Creatinine 1.09 (0.66-1.25) mg/dL Estimated GFR > 60 (>60) mL/min BUN/Creatinine Ratio 26.6 H (6-22) Glucose 105 (80-110) mg/dL Calcium 9.6 (8.4-10.2) mg/dL Total Bilirubin 1.1 (0.2-1.3) mg/dL AST 23 (17-59) IU/L ALT 12 (<50) IU/L Alkaline Phosphatase 78 (38-126) U/L Total Protein 7.2 (6.3-8.2) g/dL Albumin 4.0 (3.5-5.0) g/dL Globulin 3.2 (1.7-4.1) g/dL Albumin/Globulin Ratio 1.3 (1.0-2.8) Blood Type A Positive Antibody Screen Negative Imaging Data CT scan - abdomen/pelvis: Radiologist's Impression: DOMEN PELVIS W CON INDICATIONS: hematuria-severe TECHNIQUE: After the administration of intravenous contrast, axial sections acquired from the lung bases to the pubic symphysis. Coronal and sagittal reformats were performed. For radiation dose reduction, the following was used: automated exposure control, adjustment of mA and/or kV according to patient size. COMPARISON: [facility], CT, CT ANGIO CHEST ABDOMEN PELVIS, 02/13/2020, 8:10. FINDINGS: Image quality: Excellent. Lung bases: There is mild atelectasis at the left lung base. No pleural effusion. There are calcified hilar lymph nodes suggesting prior granulomatous disease. Heart: No significant findings. ABDOMEN: Liver: Normal in size and enhancement. A hepatic hemangioma is present at the posterior dome of the right lobe (series 2/image 21). Gallbladder: Unremarkable. Biliary ducts: Unremarkable. Pancreas: Unremarkable. Spleen: There are punctate calcifications within the spleen which is normal in size and enhancement. Adrenal Glands: Unremarkable. Kidneys and Ureters: No right hydronephrosis. There is mild left hydronephrosis. A low-density cyst is present within the midpole of the right kidney. Stomach and Bowel: Stomach, small bowel loops, and colon are unremarkable. The appendix is thin walled. Peritoneum: No abnormal intraperitoneal fluid. No free air. Ventral Wall: No hernias. Abdominal Nodes: No retroperitoneal or mesenteric adenopathy by size criteria. Vessels: Aorta and inferior vena cava are normal in size. There are than atheromatous calcifications throughout the aorta and iliac arteries bilaterally. PELVIS: Pelvic Organs: Unremarkable. Bladder: A Foster catheter is present within the bladder. There is moderate bladder wall thickening in the partially distended bladder. Centrally within the bladder surrounding the Foster catheter balloon is and intermediate density mass with punctate foci of gas present suggesting clotted blood. Gas is also present within the non dependent bladder. No suspicious bladder mass lesions. Pelvic Nodes: No enlarged lymph nodes. Miscellaneous: No hernias are seen. Bones: Unremarkable. IMPRESSION: 1. Probable clot within the bladder surrounding the Foster catheter balloon. 2. Mild left hydronephrosis. No nephrolithiasis or ureterolithiasis. Of note, if further characterization of the urothelium is warranted, CT IVP could be used. 3. Normal appendix. Dictated by: Jennifer Driver M.D. on 08/11/2023 at 15:19 Approved by: Jennifer Driver M.D. on 08/11/2023 at 15:26 MDM Narrative Medical decision making narrative: Patient is 73-year-old male presents today with urinary retention. Reports that he has had decreased urine output since yesterday. He is had increasing constipation over the last 1 week. Foster catheter was placed greater than 1 L out however became grossly bloody. He would continuous irrigation with saline and then sterile water but continued to be grossly bloody. CT confirmed thrombus in bladder. He remains hemodynamically stable. Hemoglobin 12.9 hematocrit 39.3 with repeat 12.5 and 38.2. No VICTOR MANUEL electrolyte abnormality. 16:43Dr. Nance urology consulted, updated patient's symptoms test results recommends hand irrigating with significant effort. Nursing staff hand irrigated urine to clear. Dr. Nance at bedside evaluated patient. He says that patient can be discharged with outpatient follow-up and restarting his Flomax. Started to darkened again once continuous irrigation stopped. Dr. Nance again made aware of the darkening of urine however states he be discharged Hand needed and cleared before discharge Discharge Plan Departure Patient Disposition: Home Clinical Impression: Acute urinary retention, Hematuria Instructions: How to Care for Your Foster Catheter -- Male, DI for Hematuria Activity Restrictions/Additional Instructions: *You have been diagnosed with hematuria urinary retention *What to do: At this time stay hydrated be sure to take Flomax as directed. Dr. Nance reports that you can follow-up with him please call the office thing Monday and get an appointment that week of the . It is okay for urine to be pink *Continue to take medications as directed Flomax 0.4 mg daily *Follow up with your primary care provider in 2-3 days or call [phone] Dr. Nance *Return to ER if you should have dark blood in catheter catheter not working dizziness lightheadedness increasing abdominal pain or any new, worsening or concerning symptoms Prescriptions: No Action lisinopril 20 mg tablet 20 mg PO QDAY Qty: 90 3RF baclofen 20 mg tablet See Rx Instructions .ROUTE .COMPLEX Qty: 270 3RF Rx Instructions: 1 tab in AM, 2 tabs in PM clonazepam 1 mg tablet 0.5 mg PO HS Qty: 30 3RF Rx Instructions: Patient needs appt mati/Abad prior to anymore future fills. Please call and schedule appt. 04/24/19 albuterol sulfate [Ventolin HFA] 90 mcg/actuation HFA aerosol inhaler 1 puff INHALATION PRN PRN (Reason: bronchospasm) Qty: 18 3RF Rx Instructions: Inhale one puff by mouth as needed for brochospasm amlodipine 5 mg Tablet 10 mg PO BEDTIME duloxetine 30 mg Capsule,Delayed Release(Dr/Ec) 30 mg PO BEDTIME metformin [Glucophage] 500 mg tablet 1,000 mg PO BIDCC clopidogrel 75 mg tablet 75 mg PO DAILY Rx Instructions: PT NEEDS TO BE SEEN BY PCP FOR CONT'D FILLS. 08/12/19 tamsulosin [Flomax] 0.4 mg capsule 0.12 mg PO QDAY Rx Instructions: 1 pill in AM, 2 pills in PM atorvastatin [Lipitor] 20 mg tablet 20 mg PO BEDTIME pantoprazole 40 mg tablet,delayed release (DR/EC) 40 mg PO BID Qty: 60 6RF amoxicillin-pot clavulanate [Augmentin] 875-125 mg tablet 1 tab PO Q12H Qty: 20 0RF hydrocodone-acetaminophen 5-325 mg tablet 1 tab PO QID PRN (Reason: pain) Qty: 10 0RF hydrocodone-acetaminophen 5-325 mg tablet 1 tab PO Q6H PRN (Reason: pain) Qty: 7 0RF Referrals: Kameron Nance MD [Physician] - Elton Dang MD [Primary Care Provider] - Stand Alone Forms: Patient Portal/API
[2023-08-11 14:14] LABS: Add Manual Diff / Slide Review NO; Basophils Absolute Auto 100 /uL (0-100); Basophils Percent Auto 0.8 % (0-2); Eosinophils Absolute Auto 200 /uL (0-450); Eosinophils Percent Auto 2.4 % (2-4); Hematocrit 39.3 % (41-53); Hemoglobin 12.9 g/dL (13.5-17.5); Lymphocytes Absolute Auto 1900 /uL (1100-4500); Lymphocytes Percent Auto 23.6 % (25-40); Mean Corpuscular HGB Conc 32.9 % (30-36); Mean Corpuscular Hemoglobin 28.5 PG (26-34); Mean Corpuscular Volume 86.8 fL (80-100); Monocytes Absolute Auto 800 /uL (0-900); Monocytes Percent Auto 9.9 % (3-14); Neutrophils Absolute Auto 5000 /uL (1500-7000); Neutrophils Percent Auto 63.3 % (50-75); Platelet Count 221 X10^3/uL (150-400); Red Blood Cell Count 4.53 X10^6/uL (4.5-5.9); Red Cell Distribution Width 15.5 % (11.6-14.8); White Blood Cell Count 7.9 X10^3/uL (4.5-11.0)
--- NOTE | 2023-08-11 14:17 | PC.NURSE ---
PT states he has been out of his tamsulosin the past 7 days. Complains of dribbling urine the past 2-3 days.
[2023-08-11 14:27] LABS: Prothrombin Time 11.7 SECONDS (9.4-12.5)
[2023-08-11 14:30] LABS: PTT Partial Thromboplastin Tim 32 SECONDS (25.1-36.5)
[2023-08-11 14:33] LABS: Alanine Aminotransferase 12 IU/L (<50); Albumin Globulin Ratio 1.3 (1.0-2.8); Alkaline Phosphatase 78 U/L (38-126); Aspartate Aminotransferase 23 IU/L (17-59); BUN Creatinine Ratio 26.6 (6-22); Bilirubin Total 1.1 mg/dL (0.2-1.3); Blood Urea Nitrogen 29 mg/dL (9-20); Calcium 9.6 mg/dL (8.4-10.2); Carbon Dioxide 29 mmol/L (22-32); Chloride 101 mmol/L (98-107); Estimated Glomerular Filt Rate > 60 mL/min (>60); Globulin 3.2 g/dL (1.7-4.1); Glucose 105 mg/dL (80-110); HEMOLYSIS < 15 (0-50); Potassium 4.2 mmol/L (3.4-5.1); Sodium 138 mmol/L (137-145); Total Protein 7.2 g/dL (6.3-8.2)
[2023-08-11] MEDS: WATER FOR IRRIGATION,STERILE 3,000 ML 3000 ML IRR ×2 (15:24→15:58)
[2023-08-11 16:25] LABS: Hematocrit 38.2 % (41-53); Hemoglobin 12.5 g/dL (13.5-17.5)
--- NOTE | 2023-08-11 18:01 | P.CONS_ITS ---
History of Present Illness Consult details Date Patient Seen: 08/11/23 Time Patient Seen: 17:45 Chief complaint: difficulty urinating Reason for consult: Hematuria and clot retention Requesting provider: Nettie Hicks Narrative: 73-year-old male with known history of BPH managed with use of tamsulosin 0.4 mg b.i.d. presented to the [facility] ED earlier today with complaint of inability to void. He denies a known family history of prostate cancer. He has been on long-term tamsulosin as above. He states that he ran out of tamsulosin almost 2 weeks ago he was having difficulties getting it refilled. He got down to 4 capsules and was trying to spread them out. He was able to secure new prescription on 08/07/2023 in began his usual dosage. For whatever reason, probably quit incidentally, he was struggling with constipation at that time. He tried to forces free water and did have 4 bowel movements yesterday. However, he had progressively worsening urinary frequency, urgency, weak stream, and dribbling. He finally presented today with inability of voided all and significant suprapubic pain. Contrast CT abdomen and pelvis demonstrated normal kidneys upper tracts by and benign renal cortical cysts. The bladder contour appears smooth with no obvious evidence of neoplasm. There are no stones seen in the upper or lower urinary tract. The catheter some was advanced above the neck of the bladder, that is the balloon is not position adjacent to the bladder neck but more proximally so that the tip appears to be in contact with the bladder wall and urothelium. Prostatomegaly is noted with internal calcifications. Initially, a small caliber Foster was advanced and was unsuccessful. His reports there was some clot material in the tip of the catheter. He then tried the 3 way catheter he currently has in and at 1st there was some brown discoloration and then followed by more bright red coloration of the urine. A catheter was placed is normal saline continuous bladder irrigation in did not clear well and remained pink. I was contacted at this time and instructed ED staffed to perform vigorous hand irrigation. That has been done in the interval prior to current at which time ahead the obtain you to interview and examine the patient. The patient also has a history of elevated PSA. On 12/16/2022, PSA was 14.4. On 08/16/2021, PSA was 12.7. Meds Home Medications and Allergies Home Medications Medication Instructions Recorded Confirmed Type lisinopril 20 mg tablet 20 mg PO QDAY #90 tabs 09/07/18 02/01/21 Rx baclofen 20 mg tablet See Rx Instructions .Route 02/04/19 02/01/21 Rx .COMPLEX #270 tabs clonazepam 1 mg tablet 0.5 mg (1/2 x 1 mg) PO HS #30 tabs 04/24/19 02/01/21 Rx amlodipine 5 mg tablet 10 mg PO BEDTIME 09/30/19 02/01/21 History clopidogrel 75 mg tablet 75 mg PO DAILY 09/30/19 02/01/21 History duloxetine 30 mg capsule,delayed 30 mg PO BEDTIME 09/30/19 02/01/21 History release metformin 500 mg tablet 1,000 mg PO BIDCC 09/30/19 02/01/21 History (Glucophage) tamsulosin 0.4 mg capsule (Flomax) 0.12 mg PO QDAY 09/30/19 02/01/21 History albuterol sulfate 90 mcg/actuation 1 puff inhalation PRN PRN 12/03/19 02/01/21 Rx aerosol inhaler (Ventolin HFA) bronchospasm #18 inhalations atorvastatin 20 mg tablet (Lipitor) 20 mg PO BEDTIME 02/13/20 02/01/21 History pantoprazole 40 mg tablet,delayed 40 mg PO BID Gastritis with anemia 09/11/20 02/01/21 Rx release #60 tabs amoxicillin 875 mg-potassium 1 tab PO Q12H #20 tabs 02/01/21 Rx clavulanate 125 mg tablet (Augmentin) hydrocodone 5 mg-acetaminophen 325 1 tab PO Q6H PRN pain #7 tabs 02/01/21 Rx mg tablet hydrocodone 5 mg-acetaminophen 325 1 tab PO QID PRN pain #10 tabs 02/01/21 Rx mg tablet Allergies Allergy/AdvReac Type Severity Reaction Status Date / Time No Known Drug Allergies Allergy Verified 08/11/23 10:59 Review of Systems Review of Systems ROS: Yes All systems reviewed with the patient and are negative except as otherwise documented Exam Vital Signs (past 8 hours): - 08/11/23 10:59 08/11/23 11:47 08/11/23 11:48 Temperature 96.0 F L Pulse Rate 52 L 57 L Respiratory Rate 15 Blood Pressure 155/67 H Pulse Oximetry 98 93 94 Oxygen Delivery Method Room Air 08/11/23 11:48 08/11/23 12:00 08/11/23 12:30 Temperature Pulse Rate 67 55 L Respiratory Rate Blood Pressure 132/70 Pulse Oximetry 96 Oxygen Delivery Method Room Air 08/11/23 12:31 08/11/23 12:31 08/11/23 13:00 Temperature Pulse Rate 56 L 58 L Respiratory Rate 25 H Blood Pressure 188/82 H Pulse Oximetry 94 95 Oxygen Delivery Method Room Air 08/11/23 13:01 08/11/23 13:01 08/11/23 13:30 Temperature Pulse Rate 53 L 58 L Respiratory Rate 21 13 Blood Pressure 198/79 H Pulse Oximetry 98 96 Oxygen Delivery Method Room Air 08/11/23 13:31 08/11/23 13:31 08/11/23 13:55 Temperature Pulse Rate 60 64 Respiratory Rate 14 17 Blood Pressure 198/86 H Pulse Oximetry 95 95 Oxygen Delivery Method Room Air 08/11/23 14:00 08/11/23 14:15 Temperature Pulse Rate 63 Respiratory Rate 20 Blood Pressure 166/74 H Pulse Oximetry 95 Oxygen Delivery Method Oxygen Delivery Method Room Air Narrative Exam Narrative: A well-developed, moderately over nourished male in acute distress. At this time is resting comfortably in supine position. Head/neck-sclera clear pupils are round equal bilaterally. Chest-equal nonlabored expansion bilaterally. Heart-normal sinus rhythm. Abdomen-bowel tones are normal active. Contours protuberant in consistency is soft without tenderness, mass, or organomegaly. Genitalia-indwelling 3 way Foster catheter otherwise normal. No male external genitalia. The outflow was of orange to mona brown color without clots. Objective Labs 08/11/23 14:10 08/11/23 14:02 Labs: Laboratory Results - last 24 hr 08/11/23 08/11/23 14:02 14:10 WBC 7.9 RBC 4.53 Hgb 12.9 L 12.5 L Hct 39.3 L 38.2 L MCV 86.8 MCH 28.5 MCHC 32.9 RDW 15.5 H Plt Count 221 Neut % (Auto) 63.3 Lymph % (Auto) 23.6 L [place] % (Auto) 9.9 Eos % (Auto) 2.4 Baso % (Auto) 0.8 Neut # (Auto) 5000 Lymph # (Auto) 1900 [place] # (Auto) 800 Eos # (Auto) 200 Baso # (Auto) 100 PT 11.7 INR 1.0 APTT 32 Sodium 138 Potassium 4.2 Chloride 101 Carbon Dioxide 29 BUN 29 H Creatinine 1.09 Estimated GFR > 60 BUN/Creatinine Ratio 26.6 H Glucose 105 Calcium 9.6 Total Bilirubin 1.1 AST 23 ALT 12 Alkaline Phosphatase 78 Total Protein 7.2 Albumin 4.0 Globulin 3.2 Albumin/Globulin Ratio 1.3 Blood Type A Positive Antibody Screen Negative [facility] Medical History Claustrophobia Easy bruisability Undescended testicle of both sides Shortness of breath RLS (restless legs syndrome) Cervical stenosis of spinal canal Adopted Depression Anxiety Poor sleep Myelopathy BPH (benign prostatic hyperplasia) Cervical myelopathy (11/16/17) Iron deficiency (07/31/17) Essential hypertension (07/14/14) 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 Acute urinary retention. 2. Hematuria. 3. BPH/LUTS. 4. Elevated PSA. Plan: 1. Discharge from [facility] ED with large and leg bag in care and use instructions this evening. 2. Continue tamsulosin 0.4 mg b.i.d.. 3. Avoid further episodes of constipation. Recommendations regarding stool softeners and strategies discussed this evening. 4. Will plan to conduct a supervised voiding trial early in the week of August 21, 2023.
== END 2023-08-11 19:54 | disposition home or self-care (01) ==
PROVIDERS: Emergency Provider Emergency Medicine; Family Provider Family Medicine; PCP Family Medicine
DX: N40.1 Benign prostatic hyperplasia with lower urinary tract symptoms (principal); R31.9 Hematuria, unspecified; R33.8 Other retention of urine
CPT/HCPCS: 36415; 51702; 51798; 74177; 80053; 85014; 85018; 85025; 85610; 85730; 86850; 86900; 86901; 99284

== ENCOUNTER 2023-08-12 21:50 | Emergency (ER) | payer OTHER, SELFPAY ==
[2020-02-13 13:21] VITALS: BMI 36.6
[2023-08-12 21:57] VITALS: BP 131/73; PULSE 99; RESP 16; TEMP 37.2; O2SAT 95; BMI 32.8
--- NOTE | 2023-08-12 22:05 | ED.MALEGU ---
HPI - Male Genitourinary General Chief complaint: Urogenital-Male Stated complaint: catheter leaking/plugged Time Seen by Provider: 08/12/23 21:51 History of Present Illness HPI Narrative: 73-year-old male presents for blocked Foster catheter and blood in his Foster bag. Patient was seen yesterday in the emergency department for urinary retention. He had a Foster catheter placed with drainage of more than 1 L of urine before became grossly bloody. Laboratory work at that time was significant for a hemoglobin of 12.9, hematocrit 39.3. CT of the abdomen and pelvis showed blood in the bladder without other concerning lesions noted. He subsequently underwent continuous bladder irrigation. He was evaluated by Dr. Nance of urology who stated that patient could be discharged with outpatient follow up and Flomax. It was noted in the chart that the urine began to darken again once the bladder irrigation was stopped but Urology cleared the patient for discharge. Patient states his Foster catheter has not drained since he woke up this morning. There is a small amount of dark bloody material in the Foster bag. He feels blocked up with suprapubic discomfort. Related Data Home Medications Medication Instructions Recorded Confirmed amlodipine 5 mg tablet 10 mg PO BEDTIME 09/30/19 02/01/21 clopidogrel 75 mg tablet 75 mg PO DAILY 09/30/19 02/01/21 duloxetine 30 mg capsule,delayed 30 mg PO BEDTIME 09/30/19 02/01/21 release metformin 500 mg tablet 1,000 mg PO BIDCC 09/30/19 02/01/21 (Glucophage) tamsulosin 0.4 mg capsule (Flomax) 0.12 mg PO QDAY 09/30/19 02/01/21 atorvastatin 20 mg tablet (Lipitor) 20 mg PO BEDTIME 02/13/20 02/01/21 Previous Rx's Medication Instructions Recorded lisinopril 20 mg tablet 20 mg PO QDAY #90 tabs 09/07/18 baclofen 20 mg tablet See Rx Instructions .Route 02/04/19 .COMPLEX #270 tabs clonazepam 1 mg tablet 0.5 mg (1/2 x 1 mg) PO HS #30 tabs 04/24/19 albuterol sulfate 90 mcg/actuation 1 puff inhalation PRN PRN 12/03/19 aerosol inhaler (Ventolin HFA) bronchospasm #18 inhalations pantoprazole 40 mg tablet,delayed 40 mg PO BID Gastritis with anemia 09/11/20 release #60 tabs amoxicillin 875 mg-potassium 1 tab PO Q12H #20 tabs 02/01/21 clavulanate 125 mg tablet (Augmentin) hydrocodone 5 mg-acetaminophen 325 1 tab PO Q6H PRN pain #7 tabs 21 mg tablet hydrocodone 5 mg-acetaminophen 325 1 tab PO QID PRN pain #10 tabs 02/01/21 mg tablet Allergies Allergy/AdvReac Type Severity Reaction Status Date / Time No Known Drug Allergies Allergy Verified 08/11/23 10:59 Review of Systems Review of Systems Narrative: Negative except as noted above Patient History Medical History (Updated 08/13/23 @ 01:17 by Corinna Ward MD) Claustrophobia Easy bruisability Undescended testicle of both sides Shortness of breath RLS (restless legs syndrome) Cervical stenosis of spinal canal Adopted Depression Anxiety Poor sleep Myelopathy BPH (benign prostatic hyperplasia) Cervical myelopathy (11/16/17) Iron deficiency (07/31/17) Essential hypertension (07/14/14) 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/moravian: Religion travel history: recurrent ([place] every 1-2 years.) leisure activities: reading and other (Gardening) Smoking Status: Former smoker Tobacco: How many years used: 40 Smokeless tobacco user: other (Cigarettes) quit status: quit date established (2005) second hand exposure: No alcohol intake: current substance use type: does not use Smoking Status: Former smoker alcohol intake frequency: holidays/special occasions only Substance Use Type: does not use Exam Initial Vital Signs Initial Vital Signs: Vital Signs Temperature 98.9 F 12/09/23 21:57 Pulse Rate 99 H 08/12/23 21:57 Respiratory Rate 16 08/12/23 21:57 Blood Pressure 131/73 08/12/23 21:57 Pulse Oximetry 95 08/12/23 21:57 Oxygen Delivery Method Room Air 08/12/23 21:57 Const: Awake, alert, uncomfortable Cardiac: regular rate, regular rhythm RESP: unlabored, clear bilaterally, no wheezing GI: Atraumatic, soft, suprapubic tenderness to palpation Skin: Warm, Dry, intact, no rashes Neuro: AO x3, CN II-XII grossly intact, moves all extremities Course Course Course Narrative: Clogged Foster catheter with blood in Foster bag. Patient had labs performed which showed baseline hemogobin. CT with no renal lesions. Nursing staff manually irrigated Foster catheter with return of large amounts of old clots. Urine subsequently became light yellow. We will monitor urine output to ensure that it stays clear and has not dark in again. Hemoglobin 11.5 from 12.5 yesterday. Fadumo has been observed for several hours. He no longer has pain around his catheter and his urine is draining clear yellow with no evidence of return of bleeding. Patient and comfortable going home. They will monitor for signs of bleeding and will follow up outpatient with urology as previously planned. Orders Ordered: ED Orders 08/12/23 22:22 CBC Auto Diff [Complete Blood Count AUTO DIFF] Stat CMP [Comprehensive Metabolic Panel] Stat Discontinued Medications Sodium Chloride (Normal Saline 0.9%) 1,000 mls @ 1,000 mls/hr IV BOLUS ONE Stop: 08/13/23 00:38 Last Admin: 08/12/23 23:42 Dose: 1,000 mls/hr Sodium Chloride (Normal Saline 0.9%) 1,000 mls @ 1,000 mls/hr IV BOLUS ONE Stop: 08/13/23 01:44 Last Admin: 08/13/23 00:49 Dose: 1,000 mls/hr Ketorolac Tromethamine (Ketorolac 30 Mg/Ml Vial) 15 mg IV NOW ONE Stop: 08/12/23 22:57 Last Admin: 08/12/23 23:05 Dose: 15 mg Documented By: ANURAG Lidocaine HCl (Lidocaine 2% (Glydo) 6 Ml Gel) 6 ml TOP NOW ONE Stop: 08/12/23 22:04 Last Admin: 08/12/23 23:49 Dose: Not Given Vital Signs Vital signs: Vital Signs - 8 hr 08/12/23 21:57 08/12/23 23:05 08/13/23 00:25 Temperature 98.9 F 97.9 F Pulse Rate 99 H 77 Respiratory Rate 16 20 Blood Pressure 131/73 Pulse Oximetry 95 95 Oxygen Delivery Method Room Air Room Air 08/13/23 00:27 08/13/23 00:27 08/13/23 00:30 Temperature Pulse Rate 74 76 Respiratory Rate 20 20 Blood Pressure 183/78 H Pulse Oximetry 96 95 94 Oxygen Delivery Method Room Air Room Air Room Air 08/13/23 00:30 08/13/23 01:00 08/13/23 01:01 Temperature Pulse Rate 72 75 73 Respiratory Rate 20 Blood Pressure 160/75 H Pulse Oximetry 96 94 95 Oxygen Delivery Method Room Air 08/13/23 01:01 08/13/23 01:25 Temperature 98.1 F Pulse Rate Respiratory Rate 18 Blood Pressure 149/67 H Pulse Oximetry Oxygen Delivery Method MDM - Male Genitourinary Lab Data 08/12/23 22:22 08/12/23 22:22 Labs: Lab Results 08/12/23 Range/Units 22:22 WBC 10.8 (4.5-11.0) X10^3/uL RBC 3.99 L (4.5-5.9) X10^6/uL Hgb 11.5 L (13.5-17.5) g/dL Hct 34.6 L (41-53) % MCV 86.7 (80-100) fL MCH 28.8 (26-34) PG MCHC 33.3 (30-36) % RDW 15.4 H (11.6-14.8) % Plt Count 195 (150-400) X10^3/uL Neut % (Auto) 70.3 (50-75) % Lymph % (Auto) 16.7 L (25-40) % [place] % (Auto) 11.4 (3-14) % Eos % (Auto) 1.2 L (2-4) % Baso % (Auto) 0.4 (0-2) % Neut # (Auto) 7600 H (0992-7704) /uL Lymph # (Auto) 1800 (7637-8256) /uL [place] # (Auto) 1200 H (0-900) /uL Eos # (Auto) 100 (0-450) /uL Baso # (Auto) 0 (0-100) /uL Sodium 129 L (137-145) mmol/L Potassium 4.1 (3.4-5.1) mmol/L Chloride 95 L (98-107) mmol/L Carbon Dioxide 24 (22-32) mmol/L BUN 32 H (9-20) mg/dL Creatinine 1.25 (0.66-1.25) mg/dL Estimated GFR > 60 (>60) mL/min BUN/Creatinine Ratio 25.6 H (6-22) Glucose 162 H (80-110) mg/dL Calcium 8.6 (8.4-10.2) mg/dL Total Bilirubin 0.8 (0.2-1.3) mg/dL AST 17 (17-59) IU/L ALT 13 (<50) IU/L Alkaline Phosphatase 69 (38-126) U/L Total Protein 6.4 (6.3-8.2) g/dL Albumin 3.7 (3.5-5.0) g/dL Globulin 2.7 (1.7-4.1) g/dL Albumin/Globulin Ratio 1.4 (1.0-2.8) Discharge Plan Departure Patient Disposition: Home Clinical Impression: Hematuria, Complication, blocked Foster catheter Instructions: DI for Hematuria Prescriptions: No Action lisinopril 20 mg tablet 20 mg PO QDAY Qty: 90 3RF baclofen 20 mg tablet See Rx Instructions .ROUTE .COMPLEX Qty: 270 3RF Rx Instructions: 1 tab in AM, 2 tabs in PM clonazepam 1 mg tablet 0.5 mg PO HS Qty: 30 3RF Rx Instructions: Patient needs appt w/[facility] prior to anymore future fills. Please call and schedule appt. 04/24/19 albuterol sulfate [Ventolin HFA] 90 mcg/actuation HFA aerosol inhaler 1 puff INHALATION PRN PRN (Reason: bronchospasm) Qty: 18 3RF Rx Instructions: Inhale one puff by mouth as needed for brochospasm amlodipine 5 mg Tablet 10 mg PO BEDTIME duloxetine 30 mg Capsule,Delayed Release(Dr/Ec) 30 mg PO BEDTIME metformin [Glucophage] 500 mg tablet 1,000 mg PO BIDCC clopidogrel 75 mg tablet 75 mg PO DAILY Rx Instructions: PT NEEDS TO BE SEEN BY PCP FOR CONT'D FILLS. 08/12/19 tamsulosin [Flomax] 0.4 mg capsule 0.12 mg PO QDAY Rx Instructions: 1 pill in AM, 2 pills in PM atorvastatin [Lipitor] 20 mg tablet 20 mg PO BEDTIME pantoprazole 40 mg tablet,delayed release (DR/EC) 40 mg PO BID Qty: 60 6RF amoxicillin-pot clavulanate [Augmentin] 875-125 mg tablet 1 tab PO Q12H Qty: 20 0RF hydrocodone-acetaminophen 5-325 mg tablet 1 tab PO QID PRN (Reason: pain) Qty: 10 0RF hydrocodone-acetaminophen 5-325 mg tablet 1 tab PO Q6H PRN (Reason: pain) Qty: 7 0RF Referrals: Elton Dang MD [Primary Care Provider] - Stand Alone Forms: Patient Portal/API
--- NOTE | 2023-08-12 22:35 | PC.NURSE ---
Existing 3-way 18 Fr. urinary catheter irrigated @ 30-40 mL increments X 500 mL SNS w/ return of moderate amount small clot fragments.
[2023-08-12 22:38] LABS: Add Manual Diff / Slide Review NO; Basophils Absolute Auto 0 /uL (0-100); Basophils Percent Auto 0.4 % (0-2); Eosinophils Absolute Auto 100 /uL (0-450); Eosinophils Percent Auto 1.2 % (2-4); Hematocrit 34.6 % (41-53); Hemoglobin 11.5 g/dL (13.5-17.5); Lymphocytes Absolute Auto 1800 /uL (1100-4500); Lymphocytes Percent Auto 16.7 % (25-40); Mean Corpuscular HGB Conc 33.3 % (30-36); Mean Corpuscular Hemoglobin 28.8 PG (26-34); Mean Corpuscular Volume 86.7 fL (80-100); Monocytes Absolute Auto 1200 /uL (0-900); Monocytes Percent Auto 11.4 % (3-14); Neutrophils Absolute Auto 7600 /uL (1500-7000); Neutrophils Percent Auto 70.3 % (50-75); Platelet Count 195 X10^3/uL (150-400); Red Blood Cell Count 3.99 X10^6/uL (4.5-5.9); Red Cell Distribution Width 15.4 % (11.6-14.8); White Blood Cell Count 10.8 X10^3/uL (4.5-11.0)
[2023-08-12 22:51] LABS: Alanine Aminotransferase 13 IU/L (<50); Albumin 3.7 g/dL (3.5-5.0); Albumin Globulin Ratio 1.4 (1.0-2.8); Alkaline Phosphatase 69 U/L (38-126); Aspartate Aminotransferase 17 IU/L (17-59); BUN Creatinine Ratio 25.6 (6-22); Bilirubin Total 0.8 mg/dL (0.2-1.3); Blood Urea Nitrogen 32 mg/dL (9-20); Calcium 8.6 mg/dL (8.4-10.2); Carbon Dioxide 24 mmol/L (22-32); Chloride 95 mmol/L (98-107); Estimated Glomerular Filt Rate > 60 mL/min (>60); Globulin 2.7 g/dL (1.7-4.1); Glucose 162 mg/dL (80-110); HEMOLYSIS < 15 (0-50); Potassium 4.1 mmol/L (3.4-5.1); Sodium 129 mmol/L (137-145); Total Protein 6.4 g/dL (6.3-8.2)
[2023-08-12 23:05] VITALS: TEMP 36.6
[2023-08-12] MEDS: KETOROLAC 30 MG/ML VIAL 15 MG IV (23:05)
[2023-08-12] MEDS: SODIUM CHLORIDE 0.9% 1,000 ML 1000 ML IV (23:42)
[2023-08-13 00:25] VITALS: PULSE 77; RESP 20; O2SAT 95
[2023-08-13 00:27] VITALS: BP 183/78; PULSE 74; RESP 20; O2SAT 95; O2SAT 96
[2023-08-13 00:30] VITALS: BP 160/75; PULSE 72; PULSE 76; RESP 20; O2SAT 94; O2SAT 96
--- NOTE | 2023-08-13 00:36 | PC.NURSE ---
Existing 3-way 18 Fr. urinary catheter irrigated @ 30-40 mL increments X 500 mL SNS w/ return of moderate amount small clot fragments.
[2023-08-13] MEDS: SODIUM CHLORIDE 0.9% 1,000 ML 1000 ML IV (00:49)
[2023-08-13 01:00] VITALS: PULSE 75; O2SAT 94
[2023-08-13 01:01] VITALS: BP 149/67; PULSE 73; RESP 18; O2SAT 95
[2023-08-13 01:25] VITALS: TEMP 36.7
== END 2023-08-13 01:25 | disposition home or self-care (01) ==
PROVIDERS: Emergency Provider Emergency Medicine; Family Provider Family Medicine; PCP Family Medicine
DX: T83.098A Other mechanical complication of other urinary catheter, initial encounter (principal); R31.9 Hematuria, unspecified
CPT/HCPCS: 36415; 80053; 85025; 96374; 99283; 99284; J1885

== ENCOUNTER 2023-08-22 11:13 | Emergency (ER) | payer OTHER, SELFPAY ==
[2020-02-13 13:21] VITALS: BMI 36.6
[2023-08-22 11:30] VITALS: BP 109/63; PULSE 60; RESP 16; TEMP 36.4; O2SAT 94; BMI 33.8
--- NOTE | 2023-08-22 11:57 | ED.MALEGU ---
HPI - Male Genitourinary <Bianca Garcia PA-C - Last Filed: 08/22/23 15:39> General Chief complaint: Urogenital-Male Stated complaint: painful bladder bag Time Seen by Provider: 08/22/23 11:49 Source: patient Mode of arrival: Ambulatory History of Present Illness HPI Narrative: Patient is a 73-year-old male with history of urinary retention, type 2 diabetes, HLD, HTN, BPH presenting for evaluation of pain at the tip of his penis for the last 2 days. He reports that he had this Foster catheter present for a week and a half. He states that it seems to be draining well and has not noticed any blood in his urine. He states that the sticker placement on his leg to hold the Foster has caused tugging on his penis. He states that he started noticing some pain around the glans of his penis for the last 2 days as well as noting some crusting. He denies any testicular pain nor bladder pain. He states that he is no sensation of bladder fullness and feels that the Foster has been draining well. He denies any abdominal pain. He reports that he is not chronically on a catheter, but has had to use catheters in the past due to urinary retention. He states that he is currently taking tamsulosin. He is leaving for [place] in 2 days in his concerned about that discomfort in his penis as well as not being and will take the Foster bag out prior leaving. Related Data Home Medications Medication Instructions Recorded Confirmed amlodipine 5 mg tablet 10 mg PO BEDTIME 09/30/19 02/01/21 clopidogrel 75 mg tablet 75 mg PO DAILY 09/30/19 02/01/21 duloxetine 30 mg capsule,delayed 30 mg PO BEDTIME 09/30/19 02/01/21 release metformin 500 mg tablet 1,000 mg PO BIDCC 09/30/19 02/01/21 (Glucophage) tamsulosin 0.4 mg capsule (Flomax) 0.12 mg PO QDAY 09/30/19 02/01/21 atorvastatin 20 mg tablet (Lipitor) 20 mg PO BEDTIME 02/13/20 02/01/21 Previous Rx's Medication Instructions Recorded lisinopril 20 mg tablet 20 mg PO QDAY #90 tabs 09/07/18 baclofen 20 mg tablet See Rx Instructions .Route 02/04/19 .COMPLEX #270 tabs clonazepam 1 mg tablet 0.5 mg (1/2 x 1 mg) PO HS #30 tabs 04/24/19 albuterol sulfate 90 mcg/actuation 1 puff inhalation PRN PRN 12/03/19 aerosol inhaler (Ventolin HFA) bronchospasm #18 inhalations pantoprazole 40 mg tablet,delayed 40 mg PO BID Gastritis with anemia 09/11/20 release #60 tabs amoxicillin 875 mg-potassium 1 tab PO Q12H #20 tabs 02/01/21 clavulanate 125 mg tablet (Augmentin) hydrocodone 5 mg-acetaminophen 325 1 tab PO Q6H PRN pain #7 tabs 02/01/21 mg tablet hydrocodone 5 mg-acetaminophen 325 1 tab PO QID PRN pain #10 tabs 02/01/21 mg tablet clotrimazole 1 % topical cream 1 applic topical BID 4 weeks #30 08/22/23 grams lidocaine 4 % topical gel 1 applic topical PRN PRN pain #10 08/22/23 grams Allergies Allergy/AdvReac Type Severity Reaction Status Date / Time No Known Drug Allergies Allergy Verified 08/22/23 11:34 Review of Systems <Bianca Garcia PA-C - Last Filed: 08/22/23 15:39> Review of Systems Narrative: See HPI Patient History <Bianca Garcia PA-C - Last Filed: 08/22/23 15:39> Medical History (Updated 08/22/23 @ 12:43 by Bianca Garcia PA-C) Claustrophobia Easy bruisability Undescended testicle of both sides Shortness of breath RLS (restless legs syndrome) Cervical stenosis of spinal canal Adopted Depression Anxiety Poor sleep Myelopathy BPH (benign prostatic hyperplasia) Cervical myelopathy (11/16/17) Iron deficiency (07/31/17) Essential hypertension (07/14/14) 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/cheondoism: Restorationism travel history: recurrent ([place] every 1-2 years.) leisure activities: reading and other (Gardening) Smoking Status: Former smoker Tobacco: How many years used: 40 Smokeless tobacco user: other (Cigarettes) quit status: quit date established (2005) second hand exposure: No alcohol intake: current substance use type: does not use Smoking Status: Former smoker alcohol intake frequency: holidays/special occasions only Substance Use Type: does not use Exam <Bianca Garcia PA-C - Last Filed: 08/22/23 15:39> Initial Vital Signs Initial Vital Signs: Vital Signs Temperature 97.5 F L 08/22/23 11:30 Pulse Rate 60 08/22/23 11:30 Respiratory Rate 16 08/22/23 11:30 Blood Pressure 109/63 08/22/23 11:30 Pulse Oximetry 94 08/22/23 11:30 Oxygen Delivery Method Room Air 08/22/23 11:30 GENERAL: 73 year old patient appears stated age. Well-developed patient, in no acute distress. EYES: Pupils equal round CARDIOVASCULAR: Regular rate and rhythm without murmurs, gallops, or rubs. RESPIRATORY: Clear to auscultation. Breath sounds equal bilaterally. No wheezes, rales, or rhonchi. GASTROINTESTINAL: Abdomen soft, non-tender, nondistended. : The glans of patient's penis appears erythematous and slightly edematous, no lesions noted, foreskin retracts easily, there is light crusting at the tip of patient's penis around the catheter. NEURO: AOx3. SKIN: No rash or erythema of visible areas <Sherwin Forbes DO - Last Filed: 08/22/23 16:39> Initial Vital Signs Initial Vital Signs: Vital Signs Temperature 97.5 F L 08/22/23 11:30 Pulse Rate 60 08/22/23 11:30 Respiratory Rate 16 08/22/23 11:30 Blood Pressure 109/63 08/22/23 11:30 Pulse Oximetry 94 08/22/23 11:30 Oxygen Delivery Method Room Air 08/22/23 11:30 Course <Bianca Garcia PA-C - Last Filed: 08/22/23 15:39> Vital Signs Vital signs: Vital Signs - 8 hr 08/22/23 11:30 08/22/23 12:41 Temperature 97.5 F L Pulse Rate 60 55 L Respiratory Rate 16 20 Blood Pressure 109/63 112/53 L Pulse Oximetry 94 96 Oxygen Delivery Method Room Air Room Air <Sherwin Forbes DO - Last Filed: 08/22/23 16:39> Vital Signs Vital signs: Vital Signs - 8 hr 08/22/23 11:30 08/22/23 12:41 Temperature 97.5 F L Pulse Rate 60 55 L Respiratory Rate 16 20 Blood Pressure 109/63 112/53 L Pulse Oximetry 94 96 Oxygen Delivery Method Room Air Room Air MDM - Male Genitourinary <Bianca Garcia PA-C - Last Filed: 08/22/23 15:39> MDM Narrative Medical decision making narrative: Patient is a 73-year-old male reporting for evaluation of tenderness of the glans of his penis. He has had a catheter in place for the last week and a half. He reports that he was to have this removed sometime this week, but has been unable to get in to see Dr. Nance. Because it is quite tender at the glans of his penis, he would like this taken out. He is also intending to go to [place] in 2 days. He denies any abdominal pain or scrotal pain. Discussed case with Dr. Forbes, recommends that catheter can be removed if patient wishes as long as he is careful to return to the ER if he should develop any urinary retention or complication. I discussed this with patient and he is agreeable with plan of care and would like catheter removed. He is understanding of risks and will plan to monitor his urination returned to the ER if he is having any retention. He is already on tamsulosin. I will put in a prescription for clotrimazole as well as topical lidocaine. Discussed possible use of fluconazole, but due to interaction with medications, will start with topical only at this time. Patient should be stable for discharge home. Multiple etiologies for patient's symptoms considered including, but not limited to: Balanitis, UTI Prior Charts reviewed: ER note 08/13/2023 Patient's symptoms improved over duration of stay with above-stated therapies. Findings and discharge diagnosis discussed with patient/family followed by verbalization of understanding Return precautions discussed with patient/family whom verbalize understanding of diagnosis and plan Discharge Plan Departure Patient Disposition: Home Clinical Impression: Balanitis Activity Restrictions/Additional Instructions: Thank you for coming in for your care today. You were diagnosed with balanitis. We discussed risks and benefits of removal of catheter, and we have removed your catheter today. Please return to the emergency department if you should develop a recurrence of urinary retention. Please continue to take your tamsulosin. To treat the balanitis which is a fungal infection of the glans of the penis, I recommend treatment with clotrimazole cream as well as lidocaine gel as needed for comfort. Please make sure to pat the area dry after bathing to help reduce environment for fungal growth. *What to do: *Please continue to take your regular medications as directed. [x ] New medication prescriptions sent to your pharmacy: Clotrimazole cream, topical lidocaine gel [ ] New medication written as a paper prescription [ ] No new medications given *Return to Emergency Department if you should have any new, worsening or concerning symptoms, such as fever greater than 101 F, shaking chills, worsening pain, persistent vomiting or other bothersome symptoms Prescriptions: New clotrimazole 1 % cream 1 applic topical BID 28 Days Qty: 30 0RF lidocaine 4 % gel 1 applic topical PRN PRN (Reason: pain) Qty: 10 0RF No Action lisinopril 20 mg tablet 20 mg PO QDAY Qty: 90 3RF baclofen 20 mg tablet See Rx Instructions .ROUTE .COMPLEX Qty: 270 3RF Rx Instructions: 1 tab in AM, 2 tabs in PM clonazepam 1 mg tablet 0.5 mg PO HS Qty: 30 3RF Rx Instructions: Patient needs appt w/[facility] prior to anymore future fills. Please call and schedule appt. 04/24/19 albuterol sulfate [Ventolin HFA] 90 mcg/actuation HFA aerosol inhaler 1 puff INHALATION PRN PRN (Reason: bronchospasm) Qty: 18 3RF Rx Instructions: Inhale one puff by mouth as needed for brochospasm amlodipine 5 mg Tablet 10 mg PO BEDTIME duloxetine 30 mg Capsule,Delayed Release(Dr/Ec) 30 mg PO BEDTIME metformin [Glucophage] 500 mg tablet 1,000 mg PO BIDCC clopidogrel 75 mg tablet 75 mg PO DAILY Rx Instructions: PT NEEDS TO BE SEEN BY PCP FOR CONT'D FILLS. 08/12/19 tamsulosin [Flomax] 0.4 mg capsule 0.12 mg PO QDAY Rx Instructions: 1 pill in AM, 2 pills in PM atorvastatin [Lipitor] 20 mg tablet 20 mg PO BEDTIME pantoprazole 40 mg tablet,delayed release (DR/EC) 40 mg PO BID Qty: 60 6RF amoxicillin-pot clavulanate [Augmentin] 875-125 mg tablet 1 tab PO Q12H Qty: 20 0RF hydrocodone-acetaminophen 5-325 mg tablet 1 tab PO QID PRN (Reason: pain) Qty: 10 0RF hydrocodone-acetaminophen 5-325 mg tablet 1 tab PO Q6H PRN (Reason: pain) Qty: 7 0RF Referrals: Elton Dang MD [Primary Care Provider] - Stand Alone Forms: Patient Portal/API ED Sign-out <Sherwin Forbes DO - Last Filed: 08/22/23 16:39> Cosign ED Attending Cosignature Attestation: Dr Forbes Co-Sign Statement: I was available for consultation during this patient's emergency department visit. This chart is signed by myself for administrative purposes only. I did not have direct contact with this patient during this visit. They were seen independently by the APC.
[2023-08-22 12:41] VITALS: BP 112/53; PULSE 55; RESP 20; O2SAT 96
--- NOTE | 2023-08-22 12:46 | PC.NURSE ---
Educated patient about the time he needs to void by, 2041, and signs and symptoms to be concerned about to prompt return to the ED such as dribbling, weakened stream, the urge to go without fully emptying bladder, or the urge to go without being able to. Patient and acknowledged teaching.
== END 2023-08-22 12:58 | disposition home or self-care (01) ==
PROVIDERS: Emergency Provider Physician Assistant; Family Provider Family Medicine; PCP Family Medicine
DX: N48.1 Balanitis (principal); Z79.899 Other long term (current) drug therapy
CPT/HCPCS: 99282; 99283

== ENCOUNTER 2023-08-23 10:21 | Emergency (ER) | payer OTHER, SELFPAY ==
[2020-02-13 13:21] VITALS: BMI 36.6
[2023-08-23 10:31] VITALS: BP 183/79; PULSE 61; RESP 18; TEMP 36.5; O2SAT 95; BMI 32.8
--- NOTE | 2023-08-23 10:44 | ED.GENADULT ---
HPI - General Adult General Chief complaint: Urogenital-Male Stated complaint: per pt retention Time Seen by Provider: 08/23/23 10:44 Source: patient Mode of arrival: Ambulatory History of Present Illness HPI narrative: 73-year-old male. Was seen here in the emergency department yesterday. Has had a urinary catheter in place for approximately 2 weeks. Has not followed up with urology. It was placed in this department. He was seen yesterday because he was having quite a bit of discomfort around the tip of his penis from the catheter. Decision was made to remove the Foster catheter to see whether or not he would succeed at a voiding trial. He states that he did initially have good success with urinating however it started to taper off throughout the evening and last night. This morning he has been unable to urinate. Is having lower abdominal tenderness. Related Data Home Medications Medication Instructions Recorded Confirmed amlodipine 5 mg tablet 10 mg PO BEDTIME 09/30/19 02/01/21 clopidogrel 75 mg tablet 75 mg PO DAILY 09/30/19 02/01/21 duloxetine 30 mg capsule,delayed 30 mg PO BEDTIME 09/30/19 02/01/21 release metformin 500 mg tablet 1,000 mg PO BIDCC 09/30/19 02/01/21 (Glucophage) tamsulosin 0.4 mg capsule (Flomax) 0.12 mg PO QDAY 09/30/19 02/01/21 atorvastatin 20 mg tablet (Lipitor) 20 mg PO BEDTIME 02/13/20 02/01/21 Previous Rx's Medication Instructions Recorded lisinopril 20 mg tablet 20 mg PO QDAY #90 tabs 09/07/18 baclofen 20 mg tablet See Rx Instructions .Route 02/04/19 .COMPLEX #270 tabs clonazepam 1 mg tablet 0.5 mg (1/2 x 1 mg) PO HS #30 tabs 04/24/19 albuterol sulfate 90 mcg/actuation 1 puff inhalation PRN PRN 12/03/19 aerosol inhaler (Ventolin HFA) bronchospasm #18 inhalations pantoprazole 40 mg tablet,delayed 40 mg PO BID Gastritis with anemia 09/11/20 release #60 tabs amoxicillin 875 mg-potassium 1 tab PO Q12H #20 tabs 02/01/21 clavulanate 125 mg tablet (Augmentin) hydrocodone 5 mg-acetaminophen 325 1 tab PO Q6H PRN pain #7 tabs 05/31/21 mg tablet hydrocodone 5 mg-acetaminophen 325 1 tab PO QID PRN pain #10 tabs 0531/21 mg tablet clotrimazole 1 % topical cream 1 applic topical BID 4 weeks #30 08/22/23 grams lidocaine 4 % topical gel 1 applic topical PRN PRN pain #10 08/22/23 grams Allergies Allergy/AdvReac Type Severity Reaction Status Date / Time No Known Drug Allergies Allergy Verified 08/22/23 11:34 Review of Systems Constitutional Constitutional: Reports system reviewed and no additional complaints, except as documented Gastrointestinal Gastrointestinal: Reports system reviewed and no additional complaints, except as documented Genitourinary Genitourinary: Reports system reviewed and no additional complaints, except as documented Integumentary/Breasts Skin/Breast: Reports system reviewed and no additional complaints, except as documented Patient History Medical History (Updated 08/23/23 @ 11:27 by Sherwin Forbes DO) Claustrophobia Easy bruisability Undescended testicle of both sides Shortness of breath RLS (restless legs syndrome) Cervical stenosis of spinal canal Adopted Depression Anxiety Poor sleep Myelopathy BPH (benign prostatic hyperplasia) Cervical myelopathy (11/16/17) Iron deficiency (07/31/17) Essential hypertension (07/14/14) 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/jain: Congregational travel history: recurrent ([place] every 1-2 years.) leisure activities: reading and other (Gardening) Smoking Status: Former smoker Tobacco: How many years used: 40 Smokeless tobacco user: other (Cigarettes) quit status: quit date established (2005) second hand exposure: No alcohol intake: current substance use type: does not use Smoking Status: Former smoker alcohol intake frequency: holidays/special occasions only Substance Use Type: does not use Exam Initial Vital Signs Initial Vital Signs: Vital Signs Temperature 97.7 F 08/23/23 10:31 Pulse Rate 61 08/23/23 10:31 Respiratory Rate 18 08/23/23 10:31 Blood Pressure 183/79 H 08/23/23 10:31 Pulse Oximetry 95 08/23/23 10:31 Oxygen Delivery Method Room Air 08/23/23 10:31 HENNV Head: normal to inspection and normocephalic GI Inspection: normal to inspection and distended Palpation: tender (Lower abdomen) Skin General: no rashes or lesions noted Course Orders Ordered: Discontinued Medications Lidocaine HCl (Lidocaine 2% (Glydo) 6 Ml Gel) 6 ml TOP NOW ONE Stop: 08/23/23 10:39 Last Admin: 08/23/23 10:54 Dose: 6 ml Documented By: TRAMAINE Vital Signs Vital signs: Vital Signs - 8 hr 08/23/23 10:31 08/23/23 11:15 Temperature 97.7 F Pulse Rate 61 64 Respiratory Rate 18 14 Blood Pressure 183/79 H 154/74 H Pulse Oximetry 95 93 Oxygen Delivery Method Room Air Room Air Medical Decision Making MDM Narrative Medical decision making narrative: Bladder scan shows greater than 1 L of urine in the bladder. Foster catheter was placed. Approximately 1400 cc of clear urine came out. He feels much better. He is already on Flomax. He has a prescription for lidocaine jelly that he can use for any irritation. Recommend that we discharge him home with a Foster in place. Will have him follow-up with urology. Discharge Plan Departure Patient Disposition: Home Clinical Impression: Acute urinary retention Instructions: How to Care for Your Foster Catheter -- Male, DI for Urinary Retention in Men Activity Restrictions/Additional Instructions: Continue to take all of your medications as directed. You are going to require a follow-up with Urology. You can either stop by the office when you were discharged here from the emergency department or call them for a follow-up visit. Also recommend you contact your primary doctor for follow-up. Prescriptions: No Action lisinopril 20 mg tablet 20 mg PO QDAY Qty: 90 3RF baclofen 20 mg tablet See Rx Instructions .ROUTE .COMPLEX Qty: 270 3RF Rx Instructions: 1 tab in AM, 2 tabs in PM clonazepam 1 mg tablet 0.5 mg PO HS Qty: 30 3RF Rx Instructions: Patient needs appt w/Abad prior to anymore future fills. Please call and schedule appt. 04/24/19 albuterol sulfate [Ventolin HFA] 90 mcg/actuation HFA aerosol inhaler 1 puff INHALATION PRN PRN (Reason: bronchospasm) Qty: 18 3RF Rx Instructions: Inhale one puff by mouth as needed for brochospasm amlodipine 5 mg Tablet 10 mg PO BEDTIME duloxetine 30 mg Capsule,Delayed Release(Dr/Ec) 30 mg PO BEDTIME metformin [Glucophage] 500 mg tablet 1,000 mg PO BIDCC clopidogrel 75 mg tablet 75 mg PO DAILY Rx Instructions: PT NEEDS TO BE SEEN BY PCP FOR CONT'D FILLS. 08/12/19 tamsulosin [Flomax] 0.4 mg capsule 0.12 mg PO QDAY Rx Instructions: 1 pill in AM, 2 pills in PM atorvastatin [Lipitor] 20 mg tablet 20 mg PO BEDTIME clotrimazole 1 % cream 1 applic topical BID 28 Days Qty: 30 0RF lidocaine 4 % gel 1 applic topical PRN PRN (Reason: pain) Qty: 10 0RF pantoprazole 40 mg tablet,delayed release (DR/EC) 40 mg PO BID Qty: 60 6RF amoxicillin-pot clavulanate [Augmentin] 875-125 mg tablet 1 tab PO Q12H Qty: 20 0RF hydrocodone-acetaminophen 5-325 mg tablet 1 tab PO QID PRN (Reason: pain) Qty: 10 0RF hydrocodone-acetaminophen 5-325 mg tablet 1 tab PO Q6H PRN (Reason: pain) Qty: 7 0RF Referrals: Elton Dang MD [Primary Care Provider] - Tc Cortés MD [Physician] - Stand Alone Forms: Patient Portal/API
[2023-08-23] MEDS: LIDOCAINE 2% (GLYDO) 6 ML GEL TOP (10:54)
[2023-08-23 11:15] VITALS: BP 154/74; PULSE 64; RESP 14; O2SAT 93
== END 2023-08-23 11:45 | disposition home or self-care (01) ==
PROVIDERS: Emergency Provider Emergency Medicine; Family Provider Family Medicine; PCP Family Medicine
DX: R33.8 Other retention of urine (principal); Z79.899 Other long term (current) drug therapy
CPT/HCPCS: 51798; 99283

== ENCOUNTER → 2023-09-13 09:12 | Outpatient (CLI) | payer OTHER, SELFPAY ==
[2020-02-13 13:21] VITALS: BMI 36.6
== END ==
PROVIDERS: Family Provider Family Medicine; PCP Family Medicine; Visit Provider Specialist
DX: N40.0 Benign prostatic hyperplasia without lower urinary tract symptoms (principal); R33.9 Retention of urine, unspecified; R97.20 Elevated prostate specific antigen [PSA]; K59.00 Constipation, unspecified
CPT/HCPCS: 81002; 87077; 87086; 87186; 99215

== ENCOUNTER → 2023-09-18 15:22 | Outpatient (CLI) | payer OTHER, SELFPAY ==
[2020-02-13 13:21] VITALS: BMI 36.6
== END ==
PROVIDERS: Family Provider Family Medicine; PCP Family Medicine; Visit Provider Specialist
DX: R33.9 Retention of urine, unspecified (principal)
CPT/HCPCS: 87086

== ENCOUNTER → 2023-11-13 09:53 | Outpatient (CLI) | payer OTHER, SELFPAY ==
[2020-02-13 13:21] VITALS: BMI 36.6
[2023-11-13 12:05] LABS: Prostate Specific Antigen 15.9 ng/mL (0.10-4.00)
== END ==
PROVIDERS: Family Provider Family Medicine; PCP Family Medicine; Referring Provider Specialist; Visit Provider Specialist
DX: R97.20 Elevated prostate specific antigen [PSA] (principal); R33.9 Retention of urine, unspecified
CPT/HCPCS: 36415; 84153

== ENCOUNTER → 2023-11-20 13:12 | Outpatient (CLI) | payer OTHER, SELFPAY ==
[2020-02-13 13:21] VITALS: BMI 36.6
[2023-11-20 14:46] LABS: Prostate Specific Antigen 14.4 ng/mL (0.10-4.00)
== END ==
PROVIDERS: Family Provider Family Medicine; PCP Family Medicine; Referring Provider Specialist; Visit Provider Specialist
DX: N40.0 Benign prostatic hyperplasia without lower urinary tract symptoms (principal); R97.20 Elevated prostate specific antigen [PSA]
CPT/HCPCS: 36415; 84153

== ENCOUNTER → 2023-12-20 10:10 | Outpatient (CLI) | payer OTHER, SELFPAY ==
[2020-02-13 13:21] VITALS: BMI 36.6
--- NOTE | 2023-12-20 12:07 | DI.MRI.S_ITS ---
PROCEDURE: MR PELIS WO/W CON INDICATIONS: Elevated PSA TECHNIQUE: Coronal HASTE, axial T1 FSE with fat saturation, 3-plane nonbreath-hold T2 FSE. After the administration of contrast, dynamic axial, delayed axial and coronal VIBE or 2-D FLASH with fat saturation through the pelvis. Diffusion weighted imaging and ADC was performed. COMPARISON: None. FINDINGS: Image quality: Diffusion weighted and dynamic contrast enhanced images are diagnostic. Prostate: Gland size is 4.6 x 5.7 x 4.9 cm; ellipsoid gland volume is 66.8 mL. Given given PSA of 14.4, PSA density is 0.22. Lesion 1: Location: Right anterior transition zone at the mid gland level, on axial series four, image 14 and sagittal series six, image 10. Size: 1.6 cm. T2W signal: Indistinct area of moderate T2 hypointensity, possibly partially circumscribed on the sagittal view. DWI signal: Moderately hyperintense ADC signal: Moderately hypointense Enhancement: Yes Extracapsular extension: No. No neurovascular involvement. PI-RADS score: Five Lesion 2: Location: Anterior transition zone both left and right of midline near the gland apex, on axial series four, image 16 and coronal series five, image nine. Size: Roughly 2.5 cm. T2W signal: Moderately hypointense DWI signal: Mildly hyperintense ADC signal: Moderately hypointense Enhancement: No Extracapsular extension: No. No neurovascular involvement. PI-RADS score: Five Genitourinary system: Bladder wall thickness is normal. Distal ureters are non distended. Bowel and peritoneum: No pathologic free pelvic fluid. Inferior colon and small bowel loops are normal in caliber. Nodes and vessels: No pelvic or inguinal adenopathy by size criteria. Iliac vessels are normal in caliber. Soft tissues: Inferomedial left gluteal intramuscular fluid collection measuring 8.1 x 4.4 cm Bones: Posterior lower lumbar fusion. Marrow demonstrates normal overall signal, without lesions to suggest metastases. IMPRESSION: There are two areas in the anterior prostate at mid gland and apex demonstrating suspicious signal, PI-RADS five. No pelvic lymphadenopathy by size criteria. No aggressive osseous abnormality. Left gluteal fluid collection consistent with posttraumatic hematoma. Dictated by: Criss Aldana M.D. on 12/20/2023 at 15:31 Approved by: Criss Aldana M.D. on 12/20/2023 at 15:56
== END ==
LOC: MRI 10:10
PROVIDERS: Family Provider Family Medicine; PCP Family Medicine; Referring Provider Specialist; Visit Provider Specialist
DX: N40.0 Benign prostatic hyperplasia without lower urinary tract symptoms (principal); R97.20 Elevated prostate specific antigen [PSA]; R33.9 Retention of urine, unspecified
CPT/HCPCS: 72197; A9579

== ENCOUNTER → 2024-02-13 12:17 | Outpatient (CLI) | payer OTHER, SELFPAY ==
[2020-02-13 13:21] VITALS: BMI 36.6
[2024-02-13 14:51] LABS: Add Manual Diff / Slide Review NO; Basophils Absolute Auto 100 /uL (0-100); Basophils Percent Auto 0.8 % (0-2); Eosinophils Absolute Auto 100 /uL (0-450); Eosinophils Percent Auto 0.9 % (2-4); Hematocrit 33.7 % (41-53); Hemoglobin 11.1 g/dL (13.5-17.5); Lymphocytes Absolute Auto 1800 /uL (1100-4500); Lymphocytes Percent Auto 26.2 % (25-40); Mean Corpuscular HGB Conc 32.8 % (30-36); Mean Corpuscular Hemoglobin 26.8 PG (26-34); Mean Corpuscular Volume 81.8 fL (80-100); Monocytes Absolute Auto 400 /uL (0-900); Monocytes Percent Auto 6.4 % (3-14); Neutrophils Absolute Auto 4600 /uL (1500-7000); Neutrophils Percent Auto 65.7 % (50-75); Platelet Count 201 X10^3/uL (150-400); Red Blood Cell Count 4.12 X10^6/uL (4.5-5.9); Red Cell Distribution Width 17.3 % (11.6-14.8); White Blood Cell Count 6.9 X10^3/uL (4.5-11.0)
[2024-02-13 15:03] LABS: Alanine Aminotransferase 12 IU/L (<50); Albumin 4.2 g/dL (3.5-5.0); Albumin Globulin Ratio 1.6 (1.0-2.8); Alkaline Phosphatase 74 U/L (38-126); Aspartate Aminotransferase 18 IU/L (17-59); BUN Creatinine Ratio 21.2 (6-22); Bilirubin Total 0.9 mg/dL (0.2-1.3); Blood Urea Nitrogen 25 mg/dL (9-20); Calcium 8.8 mg/dL (8.4-10.2); Carbon Dioxide 27 mmol/L (22-32); Chloride 104 mmol/L (98-107); Cholesterol 159 mg/dL (140-199); Estimated Glomerular Filt Rate > 60 mL/min (>60); Globulin 2.7 g/dL (1.7-4.1); Glucose 157 mg/dL (80-110); HDL Cholesterol 66 mg/dL (40-60); HEMOLYSIS < 15 (0-50); LDL Cholesterol Calculated 82 mg/dL (<100); Potassium 4.4 mmol/L (3.4-5.1); Sodium 138 mmol/L (137-145); Total Protein 6.9 g/dL (6.3-8.2); Triglycerides 57 mg/dL (35-150)
[2024-02-13 15:04] LABS: Iron 61 ug/dL (49-181)
[2024-02-13 15:07] LABS: Hemoglobin A1C% w Est Avg Glu 7.1 % (4.0-6.0)
== END ==
LOC: LAB 12:19
PROVIDERS: Family Provider Family Medicine; PCP Family Medicine; Referring Provider Family Medicine; Visit Provider Family Medicine
DX: E11.65 Type 2 diabetes mellitus with hyperglycemia (principal); E61.1 Iron deficiency; E78.00 Pure hypercholesterolemia, unspecified
CPT/HCPCS: 36415; 80053; 80061; 83036; 83540; 85025

== ENCOUNTER → 2024-02-14 10:23 | Outpatient (CLI) | payer OTHER, SELFPAY ==
[2020-02-13 13:21] VITALS: BMI 36.6
[2024-02-14 12:18] LABS: Creatinine Urine Random 42.65 mg/dL
[2024-02-14 12:23] LABS: Microalbumin Urine Random < 0.6 mg/dL (0-1.6)
== END ==
LOC: LAB 10:26
PROVIDERS: Family Provider Family Medicine; PCP Family Medicine; Referring Provider Family Medicine; Visit Provider Family Medicine
DX: E11.65 Type 2 diabetes mellitus with hyperglycemia (principal)
CPT/HCPCS: 82043; 82570

== ENCOUNTER → 2024-05-08 09:06 | Outpatient (CLI) | payer OTHER, SELFPAY ==
[2020-02-13 13:21] VITALS: BMI 36.6
[2024-05-08 11:03] LABS: Prostate Specific Antigen 0.715 ng/mL (0.10-4.00)
== END ==
PROVIDERS: Family Provider Family Medicine; PCP Family Medicine; Referring Provider Urology; Visit Provider Urology
DX: N40.1 Benign prostatic hyperplasia with lower urinary tract symptoms (principal)
CPT/HCPCS: 36415; 84153

== ENCOUNTER → 2024-11-05 09:09 | Outpatient (CLI) | payer OTHER, SELFPAY ==
[2020-02-13 13:21] VITALS: BMI 36.6
[2024-11-05 11:31] LABS: Prostate Specific Antigen < 0.064 ng/mL (0.10-4.00)
== END ==
PROVIDERS: Family Provider Family Medicine; PCP Family Medicine; Referring Provider Urology; Visit Provider Urology
DX: C61 Malignant neoplasm of prostate (principal)
CPT/HCPCS: 36415; 84153

== ENCOUNTER 2024-11-28 10:56 | Observation (INO) | payer OTHER, SELFPAY ==
[2020-02-13 13:21] VITALS: BMI 36.6
[2024-11-28] VITALS (26 sets, daily range): BP systolic 95–179; BP diastolic 55–103; PULSE 71–108; RESP 14–34; TEMP 35.4–36.9; O2SAT 81–95; BMI 33.6
--- NOTE | 2024-11-28 11:16 | DI.RAD.S_ITS ---
PROCEDURE: XR CHEST 1V INDICATIONS: Shortness of breath TECHNIQUE: One view of the chest was acquired. COMPARISON: Located Within [facility], , XR CHEST 1V, 09/11/2020, 11:07. Located Within [facility], CR, XR CHEST 2V, 11/03/2019, 10:02. FINDINGS: Surgical changes and devices: None. Lungs and pleura: Lungs are clear. No pleural effusions or pneumothorax. Streaky left basilar atelectasis. Low lung volumes. Mediastinum: Mediastinal contours appear normal. Heart size is normal. Bones and chest wall: No suspicious bony lesions. Overlying soft tissues appear unremarkable. IMPRESSION: No acute cardiopulmonary abnormality is seen. Dictated by: Blake Newberry M.D. on 11/28/2024 at 11:59 Approved by: Blake Newberry M.D. on 11/28/2024 at 12:00
--- NOTE | 2024-11-28 11:20 | EKG_ITS ---
[address] [address] Test Date: 2024-11-28 Pat Name: Sherwin Sparks Department: Room: Gender: Male Turning Lathe Tender: SCARLET : 1950 Requested By: Order Number: [id number] Reading MD: Sherif Melgoza MD Measurements Intervals [place] Rate: 93 P: 215 SD: 224 QRS: -12 QRSD: 100 T: 0 QT: 402 QTc: 499 Interpretive Statements Undetermined rhythm Minimal voltage criteria for LVH, may be normal variant ( R in aVL ) Anterior infarct , age undetermined T wave abnormality, consider inferior ischemia Electronically Signed On 11-28-2024 11:59:18 PDT by Sherif Melgoza MD
[2024-11-28] MEDS: ALBUTEROL/IPRATROPIUM 3 ML AMPUL 9 ML INH (11:25)
[2024-11-28 11:43] LABS: Add Manual Diff / Slide Review NO; Basophils Absolute Auto 100 /uL (0-100); Basophils Percent Auto 0.7 % (0-2); Eosinophils Absolute Auto 0 /uL (0-450); Eosinophils Percent Auto 0.3 % (2-4); Hematocrit 32.9 % (41-53); Hemoglobin 10.9 g/dL (13.5-17.5); Lymphocytes Absolute Auto 800 /uL (1100-4500); Mean Corpuscular HGB Conc 33.1 % (30-36); Mean Corpuscular Hemoglobin 28.9 PG (26-34); Mean Corpuscular Volume 87.3 fL (80-100); Monocytes Absolute Auto 700 /uL (0-900); Monocytes Percent Auto 9.8 % (3-14); Neutrophils Absolute Auto 5700 /uL (1500-7000); Neutrophils Percent Auto 78.2 % (50-75); Platelet Count 151 X10^3/uL (150-400); Red Blood Cell Count 3.76 X10^6/uL (4.5-5.9); Red Cell Distribution Width 16.7 % (11.6-14.8); White Blood Cell Count 7.3 X10^3/uL (4.5-11.0)
[2024-11-28 12:02] LABS: Prothrombin Time 11.8 SECONDS (9.4-12.5)
[2024-11-28 12:07] LABS: Lactate (Lactic Acid) 1.7 mmol/L (0.7-2.1)
[2024-11-28 12:08] LABS: Alanine Aminotransferase 27 IU/L (<50); Albumin 3.8 g/dL (3.5-5.0); Albumin Globulin Ratio 1.3 (1.0-2.8); Alkaline Phosphatase 69 U/L (38-126); Aspartate Aminotransferase 35 IU/L (17-59); BUN Creatinine Ratio 21.3 (6-22); Bilirubin Total 0.9 mg/dL (0.2-1.3); Blood Urea Nitrogen 26 mg/dL (9-20); Calcium 8.5 mg/dL (8.4-10.2); Carbon Dioxide 25 mmol/L (22-32); Chloride 105 mmol/L (98-107); Estimated Glomerular Filt Rate > 60 mL/min (>60); Glucose 125 mg/dL (80-110); HEMOLYSIS 21 (0-50); Potassium 4.4 mmol/L (3.4-5.1); Sodium 139 mmol/L (137-145); Total Protein 6.8 g/dL (6.3-8.2)
--- NOTE | 2024-11-28 12:16 | PC.NURSE ---
1120 RT called to bedside, nebulizer to be started for shortness of breath.
--- NOTE | 2024-11-28 12:17 | DI.CT.S_ITS ---
PROCEDURE: CT ANGIO CHEST PE PROTOCOL INDICATIONS: resp failure PE suspected TECHNIQUE: After the administration of intravenous contrast, 2 mm thick sections acquired from the pulmonary apices to the posterior costophrenic angles. 3-dimensional maximum intensity projection (MIP) coronal and sagittal reformats were then acquired through the thorax. For radiation dose reduction, the following was used: automated exposure control, adjustment of mA and/or kV according to patient size. COMPARISON: [facility], CR, XR CHEST 1V, 11/28/2024, 11:24. FINDINGS: Image quality: Diagnostic. Pulmonary arteries: Pulmonary arteries are normal in size, and demonstrate no intraluminal filling defects to suggest central pulmonary embolism. Lower Neck: No enlarged lymph nodes. Thyroid: No thyroid nodules which require sonographic follow up, per consensus guidelines. Axillae: No enlarged lymph nodes. Chest Wall: Unremarkable. Bones: Unremarkable. Lungs and Pleura: No pneumothorax or pleural effusions. Central ground-glass opacities. Elevated left hemidiaphragm. Heart: Heart size is normal. No pericardial effusion. Thoracic Vessels: No aortic aneurysm. Mediastinum and Carmen: No enlarged lymph nodes. Reactive mediastinal lymph nodes. Esophagus: No wall thickening. No hiatal hernia. Upper Abdomen: Calcified granuloma the spleen and liver. IMPRESSION: No pulmonary embolus. Central ground-glass opacities, concerning for atypical/viral pneumonia. Dictated by: Blake Newberry M.D. on 11/28/2024 at 13:08 Approved by: Blake Newberry M.D. on 11/28/2024 at 13:10
[2024-11-28 12:19] LABS: NT-proBNP (BNP-Adult 18+) 3170 pg/mL (<125); Troponin I 0.018 ng/mL (0.01-0.034)
--- NOTE | 2024-11-28 14:01 | ED_ITS ---
HPI - SOB/Dyspnea General Chief Complaint: Shortness of Breath/Dyspnea Stated Complaint: Signs of COPD , Chest cold , body aches per Time Seen by Provider: 11/28/24 12:16 Source: family Mode of arrival: Wheelchair History of Present Illness HPI Narrative: This is a 74-year-old male with a history of asthma presenting with 5-6 days of shortness of breath. He has been coughing as well the cough has been nonproductive. He has not noted any fevers. He had his report recent air travel to and from [place]. Says he has a history of asthma has never been intubated previously former smoker who quit 10 years ago no history of cardiac disease. Primary care is at [facility] and [place]. History include type 2 diabetes and hypertension. Related Data Home Medications Medication Instructions Recorded Confirmed amlodipine 5 mg tablet 10 mg PO BEDTIME 09/30/19 11/12/24 duloxetine 30 mg capsule,delayed 30 mg PO BEDTIME 09/30/19 11/12/24 release metformin 500 mg tablet 1,000 mg PO BIDCC 09/30/19 11/12/24 (Glucophage) tamsulosin 0.4 mg capsule (Flomax) 0.12 mg PO QDAY 09/30/19 11/12/24 atorvastatin 20 mg tablet (Lipitor) 20 mg PO BEDTIME 02/13/20 11/12/24 Previous Rx's Medication Instructions Recorded lisinopril 20 mg tablet 20 mg PO QDAY #90 tabs 09/07/18 clonazepam 1 mg tablet 0.5 mg (1/2 x 1 mg) PO HS #30 tabs 04/24/19 albuterol sulfate 90 mcg/actuation 1 puff inhalation PRN PRN 12/03/19 aerosol inhaler (Ventolin HFA) bronchospasm #18 inhalations pantoprazole 40 mg tablet,delayed 40 mg PO BID Gastritis with anemia 09/11/20 release #60 tabs Allergies Allergy/AdvReac Type Severity Reaction Status Date / Time No Known Drug Allergies Allergy Verified 09/06/24 13:56 Patient History Medical History Androgen deprivation therapy Prostate cancer BPH loc w urin obs/LUTS Urinary retention BPH (benign prostatic hyperplasia) History of urinary retention Constipation Elevated PSA Claustrophobia Easy bruisability Undescended testicle of both sides Shortness of breath RLS (restless legs syndrome) Cervical stenosis of spinal canal Adopted Depression Anxiety Poor sleep Myelopathy Cervical myelopathy (11/16/17) Iron deficiency (07/31/17) Essential hypertension (07/14/14) 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/faith: Judaism travel history: recurrent ([place] every 1-2 years.) leisure activities: reading and other (Gardening) Smoking Status: Former smoker Tobacco: How many years used: 40 Smokeless tobacco user: other (Cigarettes) quit status: quit date established (2005) second hand exposure: No alcohol intake: current substance use type: does not use Smoking Status: Former smoker alcohol intake frequency: holidays/special occasions only Exam Narrative Exam Narrative: Male who appears his stated age appears to be in some respiratory distress he is coughing. Noted to be 81% saturated on room air on arrival. Initial Vital Signs Initial Vital Signs: Vital Signs Temperature 98.5 F 11/28/24 11:00 Pulse Rate 85 11/28/24 11:00 Respiratory Rate 30 H 11/28/24 11:00 Blood Pressure 108/56 L 11/28/24 11:00 Pulse Oximetry 81 L 11/28/24 11:00 Oxygen Delivery Method Room Air 11/28/24 11:00 Const Other: Well-developed and well-nourished [facility] Head: normocephalic and atraumatic Neck Other: Supple no cervical adenopathy no jugular venous distention Resp Other: Increased respiratory effort wheezing throughout decreased air movement Cardio Other: Mildly tachycardic no murmur rub or gallop overall rhythm seems to be regular Skin Other: Warm and dry Neuro Other: Alert and oriented without focal deficit Course Orders Ordered: ED Orders 11/28/24 11:16 XR chest 1V Stat EKG-12 Lead Stat Measure peak expiratory flow ONCE RT Consult Eval and Treat NOW 11/28/24 11:30 Complete Blood Count AUTO DIFF Stat Comprehensive Metabolic Panel Stat Lactate (Lactic Acid) Stat NT-proBNP (BNP-Adult 18+) Stat Prothrombin Time INR Stat Troponin I Stat 11/28/24 12:17 CT angio chest PE protocol Stat VBG [Venous Blood Gas] STAT 11/28/24 14:03 EKG-12 Lead Stat 11/28/24 14:14 Covid-19 + FLU A/B + RSV - PCR Stat 11/28/24 14:17 Venous Blood Gas Routine Discontinued Medications Albuterol/Ipratropium (Albuterol/Ipratropium 3 Ml Ampul) 9 ml INH NOW ONE Stop: 11/28/24 11:24 Last Admin: 11/28/24 11:25 Dose: 9 ml Documented By: HEATHER Albuterol/Ipratropium (Albuterol/Ipratropium 3 Ml Ampul) 3 ml INH NOW ONE Stop: 11/28/24 14:12 Last Admin: 11/28/24 14:23 Dose: 3 ml Furosemide (Furosemide 40 Mg/4 Ml Vial) 20 mg IV NOW ONE Stop: 11/28/24 14:23 Last Admin: 11/28/24 14:42 Dose: 20 mg Prednisone (Prednisone 20 Mg Tablet) 60 mg PO NOW ONE Stop: 11/28/24 14:12 Last Admin: 11/28/24 14:42 Dose: 60 mg Consultations Consultation #1: Case discussed with Dr. Hayes, hospitalist who saw the patient, accepts patient has a admission on observation Vital Signs Vital signs: Vital Signs - 8 hr 11/28/24 11:00 11/28/24 11:08 11/28/24 11:08 Temperature 98.5 F Pulse Rate 85 71 Respiratory Rate 30 H Blood Pressure 108/56 L 108/56 L Pulse Oximetry 81 L 90 L Oxygen Delivery Method Room Air Oxygen Flow Rate 2 Fraction of Inspired Oxygen 11/28/24 11:25 11/28/24 11:30 11/28/24 11:31 Temperature Pulse Rate 95 H 105 H Respiratory Rate 18 34 H Blood Pressure 127/59 L Pulse Oximetry 92 94 Oxygen Delivery Method Nasal Cannula Nasal Cannula Oxygen Flow Rate 3 3 Fraction of Inspired Oxygen 11/28/24 11:31 11/28/24 12:00 11/28/24 12:01 Temperature Pulse Rate 95 H 94 H 87 Respiratory Rate 34 H 23 21 Blood Pressure Pulse Oximetry 92 93 93 Oxygen Delivery Method Nasal Cannula Nasal Cannula Nasal Cannula Oxygen Flow Rate 3 3 3 Fraction of Inspired Oxygen 11/28/24 12:01 11/28/24 12:30 11/28/24 12:30 Temperature Pulse Rate 90 Respiratory Rate 25 H Blood Pressure 132/103 H 141/63 H Pulse Oximetry 92 Oxygen Delivery Method Nasal Cannula Oxygen Flow Rate 3 Fraction of Inspired Oxygen 11/28/24 12:53 11/28/24 12:53 11/28/24 13:00 Temperature Pulse Rate 83 83 Respiratory Rate 20 20 Blood Pressure 111/59 L Pulse Oximetry 93 92 Oxygen Delivery Method Oxygen Flow Rate 3 Fraction of Inspired Oxygen 11/28/24 13:00 11/28/24 13:30 11/28/24 13:30 Temperature Pulse Rate 84 Respiratory Rate 17 Blood Pressure 129/56 L 141/74 H Pulse Oximetry 94 Oxygen Delivery Method Oxygen Flow Rate Fraction of Inspired Oxygen 11/28/24 14:00 11/28/24 14:00 11/28/24 14:23 Temperature Pulse Rate 88 80 Respiratory Rate 20 18 Blood Pressure 128/93 H Pulse Oximetry 93 91 Oxygen Delivery Method Nasal Cannula Nasal Cannula Oxygen Flow Rate 2 3 Fraction of Inspired Oxygen 32 11/28/24 14:30 11/28/24 14:31 11/28/24 14:31 Temperature Pulse Rate 87 82 Respiratory Rate 19 19 Blood Pressure 116/66 Pulse Oximetry 93 92 Oxygen Delivery Method Oxygen Flow Rate Fraction of Inspired Oxygen MDM - SOB/Dyspnea Lab Data Lab results narrative: CBC with diff is unremarkable, CMP shows a mildly elevated glucose, creatinine is 1.22, lactic is normal troponin normal, BNP 3170 consistent with CHF 11/28/24 11:30 11/28/24 11:30 Labs: Lab Results 11/28/24 11/28/24 11/28/24 Range/Units 11:30 14:14 14:17 WBC 7.3 (4.5-11.0) X10^3/uL RBC 3.76 L (4.5-5.9) X10^6/uL Hgb 10.9 L (13.5-17.5) g/dL Hct 32.9 L (41-53) % MCV 87.3 (80-100) fL MCH 28.9 (26-34) PG MCHC 33.1 (30-36) % RDW 16.7 H (11.6-14.8) % Plt Count 151 (150-400) X10^3/uL Neut % (Auto) 78.2 H (50-75) % Lymph % (Auto) 11.0 L (25-40) % [place] % (Auto) 9.8 (3-14) % Eos % (Auto) 0.3 L (2-4) % Baso % (Auto) 0.7 (0-2) % Neut # (Auto) 5700 (6844-2177) /uL Lymph # (Auto) 800 L (3608-0016) /uL [place] # (Auto) 700 (0-900) /uL Eos # (Auto) 0 (0-450) /uL Baso # (Auto) 100 (0-100) /uL PT 11.8 (9.4-12.5) SECONDS INR 1.0 (0.9-1.3) VBG pH 7.39 (7.33-7.43) VBG pCO2 48.1 (45-50) mmHg VBG pO2 24 L (35-45) mmHg VBG HCO3 29 H (24-28) mmol/L VBG Total CO2 28 (24-29) mmol/L VBG O2 Saturation 41 L (70-75) % VBG Base Excess 3.2 (0-4) mmol/L Sodium 139 (137-145) mmol/L Potassium 4.4 (3.4-5.1) mmol/L Chloride 105 (98-107) mmol/L Carbon Dioxide 25 (22-32) mmol/L BUN 26 H (9-20) mg/dL Creatinine 1.22 (0.66-1.25) mg/dL Estimated GFR > 60 (>60) mL/min BUN/Creatinine Ratio 21.3 (6-22) Glucose 125 H (80-110) mg/dL Lactate 1.7 (0.7-2.1) mmol/L Calcium 8.5 (8.4-10.2) mg/dL Total Bilirubin 0.9 (0.2-1.3) mg/dL AST 35 (17-59) IU/L ALT 27 (<50) IU/L Alkaline Phosphatase 69 (38-126) U/L Troponin I 0.018 (0.01-0.034) ng/mL NT-Pro-B Natriuret Pep 3170 H (<125) pg/mL Total Protein 6.8 (6.3-8.2) g/dL Albumin 3.8 (3.5-5.0) g/dL Globulin 3.0 (1.7-4.1) g/dL Albumin/Globulin Ratio 1.3 (1.0-2.8) SARS-CoV-2 (PCR) Negative (Negative) Influenza A (RT-PCR) Flu a negative (NEGATIVE) Influenza B (RT-PCR) Flu b negative (NEGATIVE) RSV (PCR) Negative (Negative) Imaging Data CT scan - chest: My Impression: Independent reviewed CT angio chest, no pulmonary embolism Radiologist's Impression: [address] [address] [address] Scan Report Signed Patient: Sherwin Sparks MR#: [id number] : 1950 Acct:[id number] Age/Sex: 74 / M Date of Service: 11/28/24 Loc: ED Accession Number: [id number] Procedure: CT angio chest PE protocol Ordering Provider: Gerardo Chery MD PROCEDURE: CT ANGIO CHEST PE PROTOCOL INDICATIONS: resp failure PE suspected TECHNIQUE: After the administration of intravenous contrast, 2 mm thick sections acquired from the pulmonary apices to the posterior costophrenic angles. 3-dimensional maximum intensity projection (MIP) coronal and sagittal reformats were then acquired through the thorax. For radiation dose reduction, the following was used: automated exposure control, adjustment of mA and/or kV according to patient size. COMPARISON: [facility], CR, XR CHEST 1V, 11/28/2024, 11:24. FINDINGS: Image quality: Diagnostic. Pulmonary arteries: Pulmonary arteries are normal in size, and demonstrate no intraluminal filling defects to suggest central pulmonary embolism. Lower Neck: No enlarged lymph nodes. Thyroid: No thyroid nodules which require sonographic follow up, per consensus guidelines. Axillae: No enlarged lymph nodes. Chest Wall: Unremarkable. Bones: Unremarkable. Lungs and Pleura: No pneumothorax or pleural effusions. Central ground-glass opacities. Elevated left hemidiaphragm. Heart: Heart size is normal. No pericardial effusion. Thoracic Vessels: No aortic aneurysm. Mediastinum and Carmen: No enlarged lymph nodes. Reactive mediastinal lymph nodes. Esophagus: No wall thickening. No hiatal hernia. Upper Abdomen: Calcified granuloma the spleen and liver. IMPRESSION: No pulmonary embolus. Central ground-glass opacities, concerning for atypical/viral pneumonia. Dictated by: Blake Newberry M.D. on 11/28/2024 at 13:08 Approved by: Blake Newberry M.D. on 11/28/2024 at 13:10 Chest x-ray: My Impression: Independent review of chest x-ray, increased lung markings no cardiomegaly no definite infiltrate ECG Data Interpretation: ECG shows a very noisy baseline appears to have LVH frequent PVCs versus bigeminy At 2:16 p.m., ECG shows atrial fibrillation ventricular rate is 84 is right bundle-branch pattern no acute ST segment changes PVCs present MDM Narrative Medical decision making narrative: 74-year-old male presenting with acute hypoxic respiratory failure. Has an elevated proBNP so there is likely an element of failure. Does not have an infiltrate he is not septic this does not appear to be an ischemic event. He was treated with steroids nebulized bronchodilators and Lasix. He is improving with this. He is admitted to the hospitalist service Discharge Plan Departure Patient Disposition: Admitted as Observation Clinical Impression: Acute hypoxemic respiratory failure Congestive heart failure (CHF) Qualifiers: Heart failure type: unspecified Heart failure chronicity: acute Qualified Code(s): I50.9 - Heart failure, unspecified Asthma exacerbation Qualifiers: Asthma severity: unspecified severity Asthma persistence: unspecified Qualified Code(s): J45.901 - Unspecified asthma with (acute) exacerbation Admit Date/Time: 11/28/24 15:46 Admit Provider: Michael Hayes
--- NOTE | 2024-11-28 14:03 | EKG_ITS ---
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
[2024-11-28 14:22] LABS: Base Excess VBG 3.2 mmol/L (0-4); HCO3 VBG 29 mmol/L (24-28); Oxygen Saturation VBG 41 % (70-75); PCO2 VBG 48.1 mmHg (45-50); PO2 VBG 24 mmHg (35-45); Total CO2 VBG 28 mmol/L (24-29); pH VBG 7.39 (7.33-7.43)
[2024-11-28] MEDS: ALBUTEROL/IPRATROPIUM 3 ML AMPUL INH (14:23)
[2024-11-28] MEDS: predniSONE 20 MG TABLET 60 MG PO (14:42)
[2024-11-28] MEDS: FUROSEMIDE 40 MG/4 ML VIAL 20 MG IV (14:42)
[2024-11-28 14:55] LABS: Influenza A - CEPHEID Flu A NEGATIVE (NEGATIVE); Influenza B - CEPHEID Flu B NEGATIVE (NEGATIVE); Respiratory Syncytial Virus Negative (Negative)
[2024-11-28 15:03] LABS: COVID-19 CEPHEID 4-PLEX PCR Negative (Negative)
--- NOTE | 2024-11-28 15:50 | PM.HP.1 ---
History of Present Illness History of Present Illness Date Patient Seen: 11/28/24 Time Patient Seen: 15:50 Chief complaint: Signs of COPD , Chest cold , body aches per Narrative: Narrative: Sherwin Sparks is a 69-year-old male with past medical history of , anxiety, BPH, chronic back pain, hypertension, hyperlipidemia, type 2 diabetes with neuropathy, prior CVA (Wallenberg syndrome), ? asthma and iron deficiency anemia presents with dyspnea, cough for the past week or so. He reports orthopnea for years, without significant change recently and denies LE edema. He denies fever. His cough is productive of white sputum for the last few days. After steroids, nebulizers, and furosemide he felt improved in the ER. He did desaturate to 86% at bedside on room air, required 2L O2 to maintain O2 saturations. CTA showed no PE, central ground glass opacities bilaterally. ProBNP was slightly elevated. Troponin normal x2. EKG showed new diagnosis of atrial fibrillation with controlled rate. He was admitted for further management. 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 travel history: recurrent ([place] every 1-2 years.) leisure activities: reading and other (Gardening) Smoking Status: Former smoker Tobacco: How many years used: 40 Smokeless tobacco user: other (Cigarettes) quit status: quit date established (2005) second hand exposure: No alcohol intake: current substance use type: does not use Meds Home Medications and Allergies Home Medications Medication Instructions Recorded Confirmed Type lisinopril 20 mg tablet 20 mg PO QDAY #90 tabs 09/07/18 11/12/24 Rx clonazepam 1 mg tablet 0.5 mg (1/2 x 1 mg) PO HS #30 tabs 04/24/19 11/12/24 Rx amlodipine 5 mg tablet 10 mg PO BEDTIME 09/30/19 11/12/24 History duloxetine 30 mg capsule,delayed 30 mg PO BEDTIME 09/30/19 11/28/24 History release metformin 500 mg tablet 1,000 mg PO BIDCC 09/30/19 11/12/24 History (Glucophage) tamsulosin 0.4 mg capsule (Flomax) 0.12 mg PO QDAY 09/30/19 11/28/24 History albuterol sulfate 90 mcg/actuation 1 puff inhalation PRN PRN 12/03/19 11/12/24 Rx aerosol inhaler (Ventolin HFA) bronchospasm #18 inhalations atorvastatin 20 mg tablet (Lipitor) 20 mg PO BEDTIME 02/13/20 11/12/24 History pantoprazole 40 mg tablet,delayed 40 mg PO BID Gastritis with anemia 09/11/20 11/28/24 Rx release #60 tabs baclofen 20 mg tablet 20 mg PO 3XD 11/28/24 11/28/24 History pregabalin 100 mg capsule 100 mg PO DAILY 11/28/24 11/28/24 History Allergies Allergy/AdvReac Type Severity Reaction Status Date / Time No Known Drug Allergies Allergy Verified 09/06/24 13:56 Review of Systems Review of Systems Narrative: All other systems reviewed with the patient and are negative unless otherwise stated. Exam Vital Signs (past 8 hours): - 11/28/24 11:00 11/28/24 11:08 11/28/24 11:08 Temperature 98.5 F Pulse Rate 85 71 Respiratory Rate 30 H Blood Pressure 108/56 L 108/56 L Pulse Oximetry 81 L 90 L Oxygen Delivery Method Room Air Oxygen Flow Rate 2 Fraction of Inspired Oxygen 11/28/24 11:25 11/28/24 11:30 11/28/24 11:31 Temperature Pulse Rate 95 H 105 H Respiratory Rate 18 34 H Blood Pressure 127/59 L Pulse Oximetry 92 94 Oxygen Delivery Method Nasal Cannula Nasal Cannula Oxygen Flow Rate 3 3 Fraction of Inspired Oxygen 11/28/24 11:31 11/28/24 12:00 11/28/24 12:01 Temperature Pulse Rate 95 H 94 H 87 Respiratory Rate 34 H 23 21 Blood Pressure Pulse Oximetry 92 93 93 Oxygen Delivery Method Nasal Cannula Nasal Cannula Nasal Cannula Oxygen Flow Rate 3 3 3 Fraction of Inspired Oxygen 11/28/24 12:01 11/28/24 12:30 11/28/24 12:30 Temperature Pulse Rate 90 Respiratory Rate 25 H Blood Pressure 132/103 H 141/63 H Pulse Oximetry 92 Oxygen Delivery Method Nasal Cannula Oxygen Flow Rate 3 Fraction of Inspired Oxygen 11/28/24 12:53 11/28/24 12:53 11/28/24 13:00 Temperature Pulse Rate 83 83 Respiratory Rate 20 20 Blood Pressure 111/59 L Pulse Oximetry 93 92 Oxygen Delivery Method Oxygen Flow Rate 3 Fraction of Inspired Oxygen 11/28/24 13:00 11/28/24 13:30 11/28/24 13:30 Temperature Pulse Rate 84 Respiratory Rate 17 Blood Pressure 129/56 L 141/74 H Pulse Oximetry 94 Oxygen Delivery Method Oxygen Flow Rate Fraction of Inspired Oxygen 11/28/24 14:00 11/28/24 14:00 11/28/24 14:23 Temperature Pulse Rate 88 80 Respiratory Rate 20 18 Blood Pressure 128/93 H Pulse Oximetry 93 91 Oxygen Delivery Method Nasal Cannula Nasal Cannula Oxygen Flow Rate 2 3 Fraction of Inspired Oxygen 32 11/28/24 14:30 11/28/24 14:31 11/28/24 14:31 Temperature Pulse Rate 87 82 Respiratory Rate 19 19 Blood Pressure 116/66 Pulse Oximetry 93 92 Oxygen Delivery Method Oxygen Flow Rate Fraction of Inspired Oxygen Fraction of Inspired Oxygen 32 SaO2/FiO2 Ratio 284 Oxygen Delivery Method Nasal Cannula Oxygen Flow Rate 3 Narrative Exam Narrative: General:? Patient is well developed and well nourished, in no distress at this time. HEENT:? Normocephalic, atraumatic, extraocular muscles intact, oral pharynx is clear and mucous membranes are moist. Neck: supple and symmetric, trachea is midline, no cervical adenopathy. Negative for JVD Chest:? Normal AP diameter and contour without kyphoscoliosis, no tachypnea, equal chest rise bilaterally. Lungs:? CTA b/l no wheezing rhonchi or rales. Cardio:?regular rate with irregularly irregular rhythm Abdomen: S NT ND. Musculoskeletal:? Muscle strength and tone are equal within normal limits, no deformity. Extremities: No edema or joint effusions. No cyanosis or clubbing. Skin:? Pale,? Warm to touch,dry and intact without rashes, ulcerations or petechiae.? Neuro:? Alert and orientated x3,? sensation to touch intact in all extremities, no gross deficits noted of cranial nerves. Psych:? Patient has a well-kept appearance, appropriate affect, mental status attitude thought context and judgment are appropriate for age. Objective ECG Impression: atrial fibrillation, no evidence of acute ischemia. Labs 11/28/24 11:30 11/28/24 18:07 Labs: Laboratory Results - last 24 hr 11/28/24 11/28/24 11/28/24 11:30 14:14 14:17 WBC 7.3 RBC 3.76 L Hgb 10.9 L Hct 32.9 L MCV 87.3 MCH 28.9 MCHC 33.1 RDW 16.7 H Plt Count 151 Neut % (Auto) 78.2 H Lymph % (Auto) 11.0 L [place] % (Auto) 9.8 Eos % (Auto) 0.3 L Baso % (Auto) 0.7 Neut # (Auto) 5700 Lymph # (Auto) 800 L [place] # (Auto) 700 Eos # (Auto) 0 Baso # (Auto) 100 PT 11.8 INR 1.0 VBG pH 7.39 VBG pCO2 48.1 VBG pO2 24 L VBG HCO3 29 H VBG Total CO2 28 VBG O2 Saturation 41 L VBG Base Excess 3.2 Sodium 139 Potassium 4.4 Chloride 105 Carbon Dioxide 25 BUN 26 H Creatinine 1.22 Estimated GFR > 60 BUN/Creatinine Ratio 21.3 Glucose 125 H Lactate 1.7 Calcium 8.5 Total Bilirubin 0.9 AST 35 ALT 27 Alkaline Phosphatase 69 Troponin I 0.018 NT-Pro-B Natriuret Pep 3170 H Total Protein 6.8 Albumin 3.8 Globulin 3.0 Albumin/Globulin Ratio 1.3 SARS-CoV-2 (PCR) Negative Influenza A (RT-PCR) Flu a negative Influenza B (RT-PCR) Flu b negative RSV (PCR) Negative Assessment & Plan Assessment & Plan narrative: 1. Acute respiratory failure with hypoxia - differentials include asthma with exacerbation, pulmonary edema due to ? new atrial fibrillation, less likely overt heart failure but also possible. - TTE ordered - continue steroids as noted below - no strong suspicion for bacterial pneumonia at this time, monitor off antibiotics. No leukocytosis on labs. CTA with ground glass opacities with broad differentials but no PE. - consider additional diuresis, will hold on additional doses at this time. 2. Asthma with exacerbation - continue prednisone 40 mg daily, given 60 mg in the ER - prn albuterol and duo nebs - RT eval and treat 3. New diagnosis atrial fibrillation, POA - currently rate controlled, hold home amlodipine in favor of rate control agents if needed or diuresis. - TTE ordered - consider starting eliquis, though patient not clear on recent GI bleed and med list has ppi BID. 4. Possible acute heart failure - unknown EF - TTE as above -given 20 mg IV lasix in the ER, appears euvolemic on exam but consider additional diuresis depending on clinical course moving forward. 5. HTN, HLD, prior CVA - A1c, TSH ordered. - hold home amlodipine and lisinopril for now in favor of possible rate control if needed. - continue home atorvastatin 20 mg 6. BPH, POA, chronic - continue home flomax 0.12 mg 7. Chronic back pain, POA - continue home pregabaline and baclofen and duloxetine. 8. Gastritis, not present on admission - continue home pantoprazole Code: Full, surrogate is patient's spouse DVT: Lovenox daily I have utilized all available immediate resources to obtain, update, or review the patient's current medications. Dispo: patient admitted under observation status pending above evaluation. Likely discharge home in 1-2 days. Additional history obtained via discussions with the ER provider. These discussions contributed to the creation of the above assessment and plan. I have reviewed patient's presenting documentation, labs, and imaging personally. Time-Based Coding :: [TOTAL MINUTES] spent with patient and on the chart (including review of chart, obtaining history, exam, reviewing outside data, placing orders, documenting exam and treatment plan, and counseling patient) on [DATE].
--- NOTE | 2024-11-28 17:29 | DI.ECHO.S_ITS ---
[place] [facility]+ [facility] : : [address] : : [place] : : [address] : : Phone: [phone] Echocardiogram Report + + :Name: IRIS GAYTAN Study Date: 11/29/2024 Height: 63 in : :Hospital ReadingLocation: Weight: 202 lb : : Gender: Male BSA: 1.9 m2 : :: 1950 Age: 74 yrs BP: 172/99 mmHg: :Reason For Study: SHORTNESS OF BREATH, HYPOXIA : :Ordering Physician: LUIS EDUARDO, : :NAINA MICHAELS Performed By: Ankit Hill : :Referring: NAINA HOFF : + + Interpretation Summary The study quality was technically difficult. The patient was in atrial fibrillation with heart rates between 61-85 bpm during the exam. Left ventricular wall thickness is mildly increased. Left ventricular ejection fraction is estimated to be 50 +/- 5%. Diastolic function could not be accurately assessed due to atrial fibrillation. The right ventricle is normal size. Right ventricular systolic function is mildly reduced. No obvious valvular abnormalities. Pulmonary artery pressures cannot be estimated because of the lack of a measurable TR jet velocity but the IVC suggests a CVP of around 15 mmHg. The ascending aorta is mildly enlarged. Procedure: A two-dimensional transthoracic echocardiogram with color flow and Doppler was performed. A contrast injection of Definity was performed to improve assessment of LV function. The study quality was technically difficult. There is no prior echocardiogram noted for this patient. The patient was in atrial fibrillation with heart rates between 61-85 bpm during the exam. Left Ventricle: The left ventricle is normal in size. Left ventricular wall thickness is mildly increased. There is no ventricular septal defect visualized. Left ventricular ejection fraction is estimated to be 50 +/- 5%. There are no focal wall motion abnormalities. Diastolic function could not be accurately assessed due to atrial fibrillation. Right Ventricle: The right ventricle is normal size. Right ventricular systolic function is mildly reduced. Atria: The left atrial size is normal. Right atrial size is normal. There is no Doppler evidence for an interatrial shunt. Mitral Valve: The mitral valve leaflets appear normal. There is no evidence of stenosis, fluttering, or prolapse. There is no mitral regurgitation noted. Aortic Valve: The aortic valve is not well visualized. There is no aortic valve stenosis. No aortic regurgitation is present. Tricuspid Valve: The tricuspid valve leaflets are thin and pliable. No tricuspid regurgitation. Pulmonary artery pressures cannot be estimated because of the lack of a measurable TR jet velocity but the IVC suggests a CVP of around 15 mmHg. Pulmonic Valve: The pulmonic valve is not well visualized. Great Vessels: The aortic root is borderline dilated. The ascending aorta is mildly enlarged. The pulmonary is not well visualized. The IVC is dilated (diameter is greater than 2.1 cm) and it collapses less than 50% with a sniff. This suggests a high right atrial pressure of 15 mm Hg. Pericardium/ Pleura There is no pericardial effusion. There is no pleural effusion. MMode/2D Measurements & Calculations LVIDd: 3.7 cm LVOT diam: 2.0 cm LVIDs: 2.9 cm Ao root diam: 3.7 cm FS: 22.0 % asc Aorta Diam: 3.7 cm EPSS: 1.0 cm IVSd: 1.2 cm LVPWd: 1.1 cm LV vargas. diameter/BSA (cm/m^2): 1.9 LV sys. diameter/BSA (cm/m^2): 1.5 LA A2 area: 18.0 cm2 RA long axis: 5.0 cm LA A4 area: 14.1 cm2 RA area: 12.1 cm2 LA length (vol): 5.3 cm RA vol: 24.9 ml LA vol: 40.8 ml RA : 12.8 ml/m2 LA vol index: 21.0 ml/m2 IVC diam: 2.3 cm RVD1 (basal): 3.5 cm RVD2 (mid): 2.7 cm TAPSE: 1.8 cm Doppler Measurements & Calculations Ao V2 max: 149.1 cm/sec LVOT Max Abebe: 98.2 cm/sec Ao V2 mean: 112.6 cm/sec LV V1 max P.9 mmHg Ao max P.9 mmHg LV V1 VTI: 19.7 cm Ao mean P.5 mmHg OSIEL(I,D): 2.1 cm2 Ao V2 VTI: 29.1 cm OSIEL(V,D): 2.0 cm2 sev ratio: 0.68 OSIEL indexed to BSA (cm^2/m^2): 1.1 MV E max abebe: 105.6 cm/sec SV(LVOT): 59.9 ml MV A max abebe: 38.2 cm/sec MV E/A: 2.8 Med Peak E' Abebe: 7.0 cm/sec E/E' med: 15.2 Lat Peak E' Abebe: 13.5 cm/sec E/E' lat: 7.8 E/e' average: 11.5 MV dec time: 0.12 sec Reading Physician:03:57 PM
[2024-11-28 18:27] LABS: Albumin 3.6 g/dL (3.5-5.0); BUN Creatinine Ratio 21.1 (6-22); Blood Urea Nitrogen 26 mg/dL (9-20); Calcium 8.5 mg/dL (8.4-10.2); Carbon Dioxide 24 mmol/L (22-32); Chloride 105 mmol/L (98-107); Estimated Glomerular Filt Rate > 60 mL/min (>60); Glucose 202 mg/dL (80-110); HEMOLYSIS < 15 (0-50); Phosphorous 4.2 mg/dL (2.3-3.7); Potassium 4.1 mmol/L (3.4-5.1); Sodium 137 mmol/L (137-145)
[2024-11-28 18:38] LABS: Troponin I 0.018 ng/mL (0.01-0.034)
--- NOTE | 2024-11-28 19:55 | CM.DANOTE ---
ED SNACK STEWARD DCP Assessment Note: Pt is a 74yo male, resident of [place], is admitted for hypoxemic respiratory failure. Pt lives in a house with his , Silvia. Pt's Primary Care Provider is Dr. Elton Dang and insurance is [employer] [facility]. Reviewed chart and discussed with multidisciplinary team pt's medical status and initial discharge needs. ED SNACK STEWARD met w/patient at bedside; introduced self and role. Present in the room is pt's spouse, Silvia. Patient was found in bed, somnolent but cooperative with assessment. Pt confirmed living situation and good support in spouse. Pt expressed preference in discharge home as much as possible, would be open to home health but not to SNF at all. Pt has no prior hx of home health or SNF Rehab. Plan: Admission to acute care, anticipating discharge home with spouse when medically cleared. CM team will follow closely for coordination of discharge plans. Gabbie Fried [facility] Discharge Planning/Care Management CM Discharge Assessment Start: 11/28/24 18:26 Freq: Status: Active Protocol: Document 11/28/24 18:27 MW (Rec: 11/28/24 18:28 MW [id number]) Discharge Planning Assessment Assigned Straight Line Edger TIN Cartwright DPOA/Assigned Designee Name Silvia Sparks, Contact Information [phone] Advance Directives? Yes Advance Directives on File No History Provided By Patient,Family Member,Medical Record Has Patient been admitted in last 30 No days? Prior Living Arrangements House Household Members spouse Type of transporation used prior to Drives own vehicle admit Independent with ADL's Yes Is patient alert and oriented? Yes Caregiver for Another No Comment uses mostly a cane. has a 4ww and uses this as need be. Patient/Family Preference Home with Home Health Barriers to Discharge No Discharge Plan Home Referrals Initiated None needed Review Status In Process Please Provide Date Initial DC 11/28/24 Assessment Was Performed Next Review Type Continued Stay Review
[2024-11-29] VITALS (9 sets, daily range): BP systolic 128–179; BP diastolic 77–106; PULSE 62–103; RESP 14–26; TEMP 35.9–36.9; O2SAT 92–98
[2024-11-29 07:02] LABS: Add Manual Diff / Slide Review NO; Basophils Absolute Auto 0 /uL (0-100); Basophils Percent Auto 0.1 % (0-2); Eosinophils Absolute Auto 0 /uL (0-450); Hematocrit 32.6 % (41-53); Hemoglobin 10.8 g/dL (13.5-17.5); Lymphocytes Absolute Auto 500 /uL (1100-4500); Lymphocytes Percent Auto 9.6 % (25-40); Mean Corpuscular HGB Conc 33.2 % (30-36); Mean Corpuscular Volume 87.5 fL (80-100); Monocytes Absolute Auto 400 /uL (0-900); Monocytes Percent Auto 7.8 % (3-14); Neutrophils Absolute Auto 4000 /uL (1500-7000); Neutrophils Percent Auto 82.5 % (50-75); Platelet Count 158 X10^3/uL (150-400); Red Blood Cell Count 3.72 X10^6/uL (4.5-5.9); Red Cell Distribution Width 16.5 % (11.6-14.8); White Blood Cell Count 4.8 X10^3/uL (4.5-11.0)
[2024-11-29 07:12] LABS: BUN Creatinine Ratio 27.1 (6-22); Blood Urea Nitrogen 29 mg/dL (9-20); Calcium 8.9 mg/dL (8.4-10.2); Carbon Dioxide 25 mmol/L (22-32); Chloride 105 mmol/L (98-107); Estimated Glomerular Filt Rate > 60 mL/min (>60); Glucose 257 mg/dL (80-110); HEMOLYSIS < 15 (0-50); Potassium 4.5 mmol/L (3.4-5.1); Sodium 139 mmol/L (137-145)
[2024-11-29 07:43] LABS: TSH w/ Reflex to FT4 0.08 uIU/mL (0.47-4.68)
[2024-11-29 07:56] LABS: Hemoglobin A1C% w Est Avg Glu 6.9 % (4.0-6.0)
[2024-11-29] MEDS: INSULIN LISPRO 100 UNIT/ML 3ML VIAL SUBCUT ×4 (08:58→20:57)
[2024-11-29] MEDS: INSULIN GLARGINE 100 UNIT/ML 3ML PEN 10 UNIT SUBCUT (08:59)
[2024-11-29] MEDS: PREGABALIN 50 MG CAPSULE 100 MG PO (09:00)
[2024-11-29] MEDS: PANTOPRAZOLE DR 40 MG TABLET PO ×2 (09:00→20:56)
[2024-11-29] MEDS: predniSONE 20 MG TABLET 40 MG PO (09:00)
[2024-11-29] MEDS: TAMSULOSIN 0.4 MG CAPSULE 0.12 MG PO (09:04)
--- NOTE | 2024-11-29 12:03 | DIET.CONS ---
Dietary Consultation Note Admission Date: 11/28/2024 15:46 Assessment: 74 y M admitted for resp failure, asthma with exacerbation. Dietitian consulted for DM educ. PMH of DM2 with a1c on 11/29/24 being 6.9%. A1c hx has trended between 6.5-7.8% since 2011. Met with pt and spouse in room. Reports taking home medication of metformin consistently. Takes FBG daily with numbers 100-120. Has BG meter and supplies needed. Has had previous nutrition educ for diabetes, is familiar with pairing macros and portioning carbs. Diet recall: lunch ( wakes up late)- sandwich, soup Dinner- home cooked- protein, veg, portioned carb Reports normal appetite with no recent changes in PO intakes. Ht: 160.02 cm Wt: 90 kg BMI: 33.6 UBW: Last BM: 11/27/24 (11/28/24 18:08) MNA: 14 Joe Score: 16 Diet: 11/28/24 Dinner Carbohydrate Consistent Diet Diet Modifications: Carbohydrate level: Large (4 CHO) Reflex DM orders: No Nutrition Percent Meal Consumed 100% 11/28/24 18:00 Labs: RBC 3.72 X10^6/uL (4.5-5.9) L 11/29/24 06:20 Hgb 10.8 g/dL (13.5-17.5) L 11/29/24 06:20 Hct 32.6 % (41-53) L 11/29/24 06:20 Creatinine 1.07 mg/dL (0.66-1.25) 11/29/24 06:20 Hemoglobin A1c 6.9 % (4.0-6.0) H 11/29/24 06:20 Lactate 1.7 mmol/L (0.7-2.1) 11/28/24 11:30 NT-Pro-B Natriuret Pep 3170 pg/mL (<125) H 11/28/24 11:30 Nutrition Diagnosis: Altered nutrition related lab values (A1c, BG) r/t endocrine dysfunction, current steroids inpatient aeb A1c 6.9%, BG 341 on 11/28 Interventions: -Plate Method, impact of macronutrients on blood sugar, meal timing, carbohydrate counting, pairing macronutrients and spreading out carbohydrates for better blood glucose management -Recommended servings for carbohydrates at meals and snacks -BG ranges EER: 45-60 g carbs/meal, 15-30 g carbs at snacks Monitoring/Evaluations: BG Electronically Signed by: Monica Zafar 11/29/24 12:03 Clinical Dietitian [address] [address]
[2024-11-29] MEDS: ENOXAPARIN 40 MG/0.4 ML SYRINGE SUBCUT (13:48)
[2024-11-29] MEDS: BACLOFEN 10 MG TABLET 20 MG PO ×2 (13:51→21:56)
[2024-11-29] MEDS: ALBUTEROL 2.5 MG/3 ML NEB (ADULT) INH (17:31)
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
[2024-11-29] MEDS: DULOXETINE 30 MG CAPSULE PO (20:56)
[2024-11-30 01:14] VITALS: BP 171/91; PULSE 71; RESP 16; TEMP 35.9; O2SAT 95
[2024-11-30 03:51] VITALS: BP 159/95; PULSE 70; RESP 16; TEMP 35.7; O2SAT 96
[2024-11-30 07:01] LABS: Add Manual Diff / Slide Review NO; Basophils Absolute Auto 0 /uL (0-100); Basophils Percent Auto 0.1 % (0-2); Eosinophils Absolute Auto 0 /uL (0-450); Eosinophils Percent Auto 0.1 % (2-4); Hemoglobin 10.6 g/dL (13.5-17.5); Lymphocytes Absolute Auto 800 /uL (1100-4500); Lymphocytes Percent Auto 10.6 % (25-40); Mean Corpuscular Hemoglobin 28.8 PG (26-34); Mean Corpuscular Volume 87.2 fL (80-100); Monocytes Absolute Auto 600 /uL (0-900); Neutrophils Absolute Auto 6000 /uL (1500-7000); Neutrophils Percent Auto 81.2 % (50-75); Platelet Count 180 X10^3/uL (150-400); Red Blood Cell Count 3.67 X10^6/uL (4.5-5.9); Red Cell Distribution Width 16.6 % (11.6-14.8); White Blood Cell Count 7.3 X10^3/uL (4.5-11.0)
[2024-11-30 07:21] LABS: BUN Creatinine Ratio 31.6 (6-22); Blood Urea Nitrogen 36 mg/dL (9-20); Calcium 9.1 mg/dL (8.4-10.2); Carbon Dioxide 25 mmol/L (22-32); Chloride 106 mmol/L (98-107); Estimated Glomerular Filt Rate > 60 mL/min (>60); Glucose 139 mg/dL (80-110); HEMOLYSIS < 15 (0-50); Magnesium 1.9 mg/dL (1.6-2.3); Potassium 4.4 mmol/L (3.4-5.1); Sodium 139 mmol/L (137-145)
[2024-11-30] MEDS: PREGABALIN 50 MG CAPSULE 100 MG PO (07:59)
[2024-11-30] MEDS: lisinopriL 20 MG TABLET PO (07:59)
[2024-11-30] MEDS: predniSONE 20 MG TABLET 40 MG PO (08:00)
[2024-11-30] MEDS: ENOXAPARIN 40 MG/0.4 ML SYRINGE SUBCUT (08:00)
[2024-11-30] MEDS: INSULIN LISPRO 100 UNIT/ML 3ML VIAL SUBCUT ×3 (08:00→17:29)
[2024-11-30] MEDS: INSULIN GLARGINE 100 UNIT/ML 3ML PEN 20 UNIT SUBCUT (08:01)
[2024-11-30] MEDS: PANTOPRAZOLE DR 40 MG TABLET PO (08:02)
[2024-11-30] MEDS: CLOPIDOGREL 75 MG TABLET PO (08:07)
[2024-11-30] MEDS: TAMSULOSIN 0.4 MG CAPSULE 0.12 MG PO (08:59)
[2024-11-30 09:00] VITALS: BP 156/78; PULSE 75; RESP 16; TEMP 36.2; O2SAT 97
[2024-11-30 09:49] VITALS: O2SAT 96
[2024-11-30 12:00] VITALS: BP 157/92; PULSE 61; RESP 17; TEMP 36.4; O2SAT 95
--- NOTE | 2024-11-30 16:16 | CM.DPC ---
I spoke to patient today regarding the possibility of home health. He said he was open to getting home health to set him up with oxygen at home. He did not feel sure that anything additional would be needed from home health. Patient said he was unsure if he was to be discharged with home oxygen. I discussed this with Dr Horowitz. she did a trial of weaning off supplemental 02. SP02 quickly dropped into the 80s. Dr Horowitz said the patient is not well enough to discharge yet. Unclear if he will need home health as of today.
--- NOTE | 2024-11-30 20:00 | PC.NURSE ---
1950 Patient discharged home with . IV Dcd, tele removed, discharge instructions reviewed with patient and patient's , patient denies any pain or SOB, left with all belongings accompanied by this RN.
--- NOTE | 2024-12-01 16:43 | PM.DS.1 ---
History of Present Illness History of Present Illness Chief complaint: Signs of COPD , Chest cold , body aches per Narrative: Per H&P: Sherwin Sparks is a 69-year-old male with past medical history of , anxiety, BPH, chronic back pain, hypertension, hyperlipidemia, type 2 diabetes with neuropathy, prior CVA (Wallenberg syndrome), ? asthma and iron deficiency anemia presents with dyspnea, cough for the past week or so. He reports orthopnea for years, without significant change recently and denies LE edema. He denies fever. His cough is productive of white sputum for the last few days. After steroids, nebulizers, and furosemide he felt improved in the ER. He did desaturate to 86% at bedside on room air, required 2L O2 to maintain O2 saturations. CTA showed no PE, central ground glass opacities bilaterally. ProBNP was slightly elevated. Troponin normal x2. EKG showed new diagnosis of atrial fibrillation with controlled rate. He was admitted for further management. Discharge Providers Provider Date of admission: 11/28/24 15:46 Discharge Date: 11/30/24 Primary care physician: Elton Dang MD Consults: 11/29/24 07:20 Consult to Dietitian, Adult Stat Comment: Reason For Exam: Diabetic teaching Discharge provider: Mariana Horowitz MD Summary Hospital Course Hospital Course: 69-year-old male with past medical history of anxiety, BPH, chronic back pain, hypertension, hyperlipidemia, type 2 diabetes with neuropathy, prior CVA (Wallenberg syndrome), ? asthma and iron deficiency anemia presents with dyspnea and cough, elevated BNP and acute hypoxic resp failure. He was found to have new onset rate controlled a fib. He ws given a single dose of IV diuretic in the ED. He was placed on oral prednisone. On the day following admit, he felt quite a bit better but that evening continued to get dyspneic when walking to the bathroom and required 5-10 minutes to recover after walking. On the date of d/c, he successfully weaned off of O2 and was no longer dyspneic w/activity. During his hospital stay his QCTHO2Twpp and bleeding risks were reviewed. He elected to wait on a decision about anticoagulation and wishes to discuss further both with his and his PCP. Echo showed an EF of 50% +/- 5% and no significant valvular disease. His a fib remained rate controlled. Pt is d/c'd in stable condition. Status at Discharge Cognitive/behavioral status at discharge: at baseline, oriented Functional status at discharge: independent ambulation Overall status at discharge: patient is progressing back to baseline Exam Vital Signs (past 8 hours): Fraction of Inspired Oxygen 32 SaO2/FiO2 Ratio 284 Oxygen Delivery Method Nasal Cannula Oxygen Flow Rate 2 Narrative Exam Narrative: GEN: Middle-aged male, pleasant, Alert and oriented x 3, NAD HEENT:NC, Face symmetric, nasal cannula in place CHEST: Respiratory excursions symmetric, bilateral crackles somewhat diffuse, faint expiratory wheezes in the left upper lobe CV: Irregularly irregular, rate controlled, no M/R/G ABD: Soft, NT/ND, BT present in all 4 quadrants, no organomegaly or masses EXTR: warm, well perfused, no C/C/E SKIN: warm and dry, no rash NEURO: Alert and oriented x 3, nonfocal Objective Labs 11/30/24 06:30 11/30/24 06:30 [facility] Medical History Androgen deprivation therapy Prostate cancer BPH loc w urin obs/LUTS Urinary retention BPH (benign prostatic hyperplasia) History of urinary retention Constipation Elevated PSA Claustrophobia Easy bruisability Undescended testicle of both sides Shortness of breath RLS (restless legs syndrome) Cervical stenosis of spinal canal Adopted Depression Anxiety Poor sleep Myelopathy Cervical myelopathy (11/16/17) Iron deficiency (07/31/17) Essential hypertension (07/14/14) 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/jainism: Zoroastrianism travel history: recurrent ([place] every 1-2 years.) leisure activities: reading and other (Gardening) Smoking Status: Former smoker Tobacco: How many years used: 40 Smokeless tobacco user: other (Cigarettes) quit status: quit date established (2005) second hand exposure: No alcohol intake: current substance use type: does not use Discharge Plan Discharge Plan Patient Disposition: Home Provider Discharge Comment: 1) Continue prednisone as prescribed 2) Follow up with your PCP to discuss your decision on anticoagulation (blood thinners) for atrial fibrillation; also ask about getting a nebulizer and nebulizer solution. 3) You were diagnosed w/new onset of atrial fibrillation during this hospital stay 4) Return to the ED for: Worsening shortness of breath, fevers/chills, inability to hold down food/fluids Discharge orders & Medications Prescriptions: New prednisone 20 mg Tablet 40 mg PO DAILY Qty: 13 0RF Rx Instructions: Take 2 tabs daily x 2 days, then 1.5 tabs daily x 3 days, then 1 tab daily x 3 days, then 1/2 tab daily x 3 days, then stop Continued lisinopril 20 mg tablet 20 mg PO QDAY Qty: 90 3RF albuterol sulfate [Ventolin HFA] 90 mcg/actuation HFA aerosol inhaler 1 puff INHALATION PRN PRN (Reason: bronchospasm) Qty: 18 3RF Rx Instructions: Inhale one puff by mouth as needed for brochospasm amlodipine 5 mg Tablet 10 mg PO BEDTIME duloxetine 30 mg Capsule,Delayed Release(Dr/Ec) 30 mg PO BEDTIME metformin [Glucophage] 500 mg tablet 1,000 mg PO BIDCC tamsulosin [Flomax] 0.4 mg capsule 0.4 mg PO QDAY Rx Instructions: 1 pill in AM, 2 pills in PM atorvastatin [Lipitor] 20 mg tablet 20 mg PO BEDTIME pantoprazole 40 mg tablet,delayed release (DR/EC) 40 mg PO BID Qty: 60 6RF baclofen 20 mg tablet 20 mg PO 3XD Rx Instructions: Takes at routinely at 0100 and 1400 pregabalin 100 mg capsule 100 mg PO DAILY albuterol sulfate [Ventolin HFA] 90 mcg/actuation Hfa Aerosol Inhaler 2 puff INHALATION Q4-6H PRN (Reason: Shortness Of Breath) clopidogrel [Plavix] 75 mg Tablet 75 mg PO DAILY Follow up/Referrals: Elton Dang MD [Primary Care Provider] - Diet/Activity/Treatments Diet: Diet as Tolerated and Regular Activity: As tolerated, gradually increase your activity as you are feeling better Visit Report/Discharge Packet Instructions: Atrial Fibrillation, DI for Heart Failure, DI for Chronic Obstructive Pulmonary Disease, DI for Respiratory Failure, Physical Activity for People with COPD Stand Alone Forms: Patient Portal/API, Stroke Signs & Symptoms Discharge Data Primary Care Provider: Elton Dang Attending Provider: Michael Hayes Admit Date/Time: 11/28/24 15:46 Quality VTE Deep Vein Thrombosis/Pulmonary Embolism Present on Admission: No
== END 2024-11-30 19:50 | disposition home or self-care (01) ==
LOC: ED 12:16 → AC 15:47
PROVIDERS: Admitting Provider Internal Medicine; Emergency Provider Emergency Medicine; Family Provider Family Medicine; PCP Family Medicine; Referring Provider Emergency Medicine; Visit Provider Internal Medicine
DX: J96.01 Acute respiratory failure with hypoxia (principal); I10 Essential (primary) hypertension; I48.91 Unspecified atrial fibrillation; D50.9 Iron deficiency anemia, unspecified; J45.909 Unspecified asthma, uncomplicated; G89.29 Other chronic pain; E11.40 Type 2 diabetes mellitus with diabetic neuropathy, unspecified; F41.9 Anxiety disorder, unspecified; M54.9 Dorsalgia, unspecified; E78.5 Hyperlipidemia, unspecified; N40.0 Benign prostatic hyperplasia without lower urinary tract symptoms; Z86.73 Personal history of transient ischemic attack (TIA), and cerebral infarction without residual deficits; Z79.84 Long term (current) use of oral hypoglycemic drugs; Z85.46 Personal history of malignant neoplasm of prostate; Z87.891 Personal history of nicotine dependence; Z11.52 Encounter for screening for COVID-19
CPT/HCPCS: 0241U; 36415; 71045; 71275; 80048; 80053; 80069; 82805; 82962; 83036; 83605; 83735; 83880; 84439; 84443; 84484; 85025; 85610; 93005; 93010; 94640; 94760; 96372; 96374; 99285; G0378; C8929; J1650; J1815; J1940; J7613; Q9957; Q9967

== ENCOUNTER → 2025-01-03 12:05 | Outpatient (CLI) | payer OTHER, SELFPAY ==
[2024-11-28 18:08] VITALS: BMI 33.6
[2025-01-03 13:27] LABS: HEMOLYSIS < 15 (0-50); Potassium 4.7 mmol/L (3.4-5.1)
== END ==
PROVIDERS: Family Provider Family Medicine; PCP Family Medicine; Referring Provider Family Medicine; Visit Provider Family Medicine
DX: E87.5 Hyperkalemia (principal)
CPT/HCPCS: 36415; 84132

== ENCOUNTER → 2025-01-31 09:22 | Outpatient (CLI) | payer OTHER, SELFPAY ==
[2024-11-28 18:08] VITALS: BMI 33.6
[2025-01-31 11:18] LABS: Prostate Specific Antigen < 0.064 ng/mL (0.10-4.00)
== END ==
PROVIDERS: Family Provider Family Medicine; PCP Family Medicine; Referring Provider Urology; Visit Provider Urology
DX: C61 Malignant neoplasm of prostate (principal)
CPT/HCPCS: 36415; 84153

== ENCOUNTER 2025-02-09 08:03 | Emergency (ER) | payer OTHER, SELFPAY ==
[2024-11-28 18:08] VITALS: BMI 33.6
[2025-02-09] VITALS (18 sets, daily range): BP systolic 127–214; BP diastolic 60–88; PULSE 57–72; RESP 12–29; TEMP 36.7; O2SAT 91–96; BMI 34.3
--- NOTE | 2025-02-09 08:06 | ED.CHESTPAIN ---
HPI - Chest Pain General Chief Complaint: Chest Pain Stated Complaint: Rapid heart rate; chest pain this am Time Seen by Provider: 02/09/25 08:06 Source: patient, RN notes reviewed and old records reviewed Mode of arrival: Ambulatory Limitations: no limitations History of Present Illness HPI narrative: 74-year-old male history of prior TIA, hypertension, chronic back pain, prostate cancer on Plavix who presents with complaint of left substernal chest discomfort and rapid heart rate. Patient states it started about 6:00 a.m. this morning continues to feel rapid this time. Has not had similar symptoms in the past. States he does feel little short of breath. Denies any fevers, had some mild nausea, no vomiting. Denies cough cold or congestion symptoms. Describes pain has been a little bit left substernal but without any radiation. He states nothing seems to make it better or worse. Notes little bit of swelling that has new in his feet yesterday but improved overnight. States had some diarrhea yesterday 1 time but denies any black or bloody stools. No urinary symptoms. Patient states he was had a TIA high-risk aphasia but it resolved. Has had back surgery x2, neck surgery and had radiation and injections for his prostate cancer. Patient is on Plavix daily, lisinopril, amlodipine, Flomax, atorvastatin, duloxetine, gabapentin, metformin daily. He states he did take his morning medications which include lisinopril. No tobacco, alcohol clone no recreational drugs. Dr. Dang is his primary care physician. Dr. Cortés is his urologist. Related Data Home Medications ?Medication ?Instructions ?Recorded ?Confirmed amlodipine 5 mg tablet 10 mg PO BEDTIME 09/30/19 11/29/24 duloxetine 30 mg capsule,delayed 30 mg PO BEDTIME 09/30/19 11/28/24 release metformin 500 mg tablet 1,000 mg PO BIDCC 09/30/19 11/29/24 (Glucophage) tamsulosin 0.4 mg capsule (Flomax) 0.4 mg PO QDAY 09/30/19 11/30/24 atorvastatin 20 mg tablet (Lipitor) 20 mg PO BEDTIME 02/13/20 11/29/24 baclofen 20 mg tablet 20 mg PO 3XD 11/28/24 11/28/24 pregabalin 100 mg capsule 100 mg PO DAILY 11/28/24 11/28/24 albuterol sulfate 90 mcg/actuation 2 puff inhalation Q4-6H PRN 11/29/24 11/29/24 aerosol inhaler (Ventolin HFA) Shortness Of Breath clopidogrel 75 mg tablet (Plavix) 75 mg PO DAILY 11/29/24 11/29/24 Previous Rx's ?Medication ?Instructions ?Recorded lisinopril 20 mg tablet 20 mg PO QDAY #90 tabs 09/07/18 albuterol sulfate 90 mcg/actuation 1 puff inhalation PRN PRN 12/03/19 aerosol inhaler (Ventolin HFA) bronchospasm #18 inhalations pantoprazole 40 mg tablet,delayed 40 mg PO BID Gastritis with anemia 09/11/20 release #60 tabs prednisone 20 mg tablet 40 mg (2 x 20 mg) PO DAILY #13 tabs 11/30/24 Allergies Allergy/AdvReac Type Severity Reaction Status Date / Time No Known Drug Allergies Allergy Verified 09/06/24 13:56 Review of Systems Review of Systems ROS Unobtainable: All systems reviewed & are unremarkable except as noted in HPI and below Patient History Medical History Androgen deprivation therapy Prostate cancer BPH loc w urin obs/LUTS Urinary retention BPH (benign prostatic hyperplasia) History of urinary retention Constipation Elevated PSA Claustrophobia Easy bruisability Undescended testicle of both sides Shortness of breath RLS (restless legs syndrome) Cervical stenosis of spinal canal Adopted Depression Anxiety Poor sleep Myelopathy Cervical myelopathy (11/16/17) Iron deficiency (07/31/17) Essential hypertension (07/14/14) 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 No diaphoresis. HEENT: Head normocephalic, atraumatic, EOMI, pupils reactive, face symmetric, moist mucous membranes NECK: Supple, full range of motion CARDIOVASCULAR: Regular rate and rhythm without murmurs, rubs or gallops. No JVD. Mild edema bilateral lower extremities. RESPIRATORY: Breath sounds equal bilaterally, no wheezes rales or rhonchi. No tachypnea or accessory muscle use. Speaks in full sentences. ABDOMEN: Soft, nontender. Normoactive bowel sounds all 4 quadrants. No guarding or rebound, rigidity, no mass : No CVA tenderness EXTREMITIES: Normal range of motion. Neurovascularly intact NEUROLOGICAL: Cranial nerves II through XII grossly intact. Moving all extremities SKIN: Warm, dry, no petechiae, no rashes or lesions. Initial Vital Signs Initial Vital Signs: Vital Signs Pulse Rate 72 02/09/25 08:08 Pulse Oximetry 91 02/09/25 08:08 Course Orders Ordered: ED Orders 02/09/25 08:14 Complete Blood Count AUTO DIFF Stat Comprehensive Metabolic Panel Stat Lipase Stat NT-proBNP (BNP-Adult 18+) Stat PTT Partial Thromboplastin Markel Stat Prothrombin Time INR Stat Troponin & CK Cardiac Panel Stat 02/09/25 08:15 XR chest 1V Stat EKG-12 Lead Stat 02/09/25 10:14 EKG-12 Lead Stat 02/09/25 10:17 Trop I [Troponin I] Stat Discontinued Medications Aspirin (Aspirin 81 Mg Chew Tab) 324 mg PO NOW ONE Stop: 02/09/25 08:16 Last Admin: 02/09/25 08:22 Dose: 324 mg Documented By: MILAGROS Vital Signs Vital signs: Vital Signs - 8 hr 02/09/25 08:08 02/09/25 08:11 02/09/25 08:11 Temperature Pulse Rate 72 66 Respiratory Rate 29 H Blood Pressure 214/88 H Pulse Oximetry 91 95 Oxygen Delivery Method 02/09/25 08:13 02/09/25 08:18 02/09/25 08:18 Temperature 98.1 F Pulse Rate 60 60 Respiratory Rate 24 20 Blood Pressure 214/88 H 201/85 H Pulse Oximetry 92 93 Oxygen Delivery Method Room Air 02/09/25 08:24 02/09/25 08:24 02/09/25 08:30 Temperature Pulse Rate 66 61 Respiratory Rate 21 13 Blood Pressure 144/65 H Pulse Oximetry 94 95 Oxygen Delivery Method 02/09/25 08:31 02/09/25 08:31 02/09/25 09:00 Temperature Pulse Rate 59 L 60 Respiratory Rate 18 16 Blood Pressure 175/73 H Pulse Oximetry 94 93 Oxygen Delivery Method 02/09/25 09:01 02/09/25 09:01 02/09/25 09:30 Temperature Pulse Rate 61 57 L Respiratory Rate 13 15 Blood Pressure 183/75 H Pulse Oximetry 92 95 Oxygen Delivery Method 02/09/25 09:33 02/09/25 09:33 02/09/25 10:00 Temperature Pulse Rate 58 L 60 Respiratory Rate 19 12 Blood Pressure 189/78 H Pulse Oximetry 95 96 Oxygen Delivery Method 02/09/25 10:01 02/09/25 10:01 02/09/25 10:30 Temperature Pulse Rate 59 L 60 Respiratory Rate 12 12 Blood Pressure 182/77 H Pulse Oximetry 96 94 Oxygen Delivery Method 02/09/25 10:31 02/09/25 10:31 02/09/25 11:00 Temperature Pulse Rate 60 58 L Respiratory Rate 14 19 Blood Pressure 188/78 H Pulse Oximetry 95 95 Oxygen Delivery Method 02/09/25 11:28 02/09/25 11:28 02/09/25 11:30 Temperature Pulse Rate 69 59 L Respiratory Rate 21 20 Blood Pressure 144/65 H Pulse Oximetry 94 96 Oxygen Delivery Method 02/09/25 11:30 Temperature Pulse Rate Respiratory Rate Blood Pressure 127/60 Pulse Oximetry Oxygen Delivery Method MDM - Chest Pain Lab Data 02/09/25 08:14 02/09/25 08:14 Labs: Lab Results 02/09/25 02/09/25 Range/Units 08:14 10:17 WBC 6.5 (4.5-11.0) X10^3/uL RBC 4.24 L (4.5-5.9) X10^6/uL Hgb 11.9 L (13.5-17.5) g/dL Hct 36.4 L (41-53) % MCV 85.8 (80-100) fL MCH 28.1 (26-34) PG MCHC 32.8 (30-36) % RDW 15.7 H (11.6-14.8) % Plt Count 220 (150-400) X10^3/uL Neut % (Auto) 63.4 (50-75) % Lymph % (Auto) 23.4 L (25-40) % [place] % (Auto) 10.5 (3-14) % Eos % (Auto) 1.9 L (2-4) % Baso % (Auto) 0.8 (0-2) % Neut # (Auto) 4100 (5968-5278) /uL Lymph # (Auto) 1500 (5414-9046) /uL [place] # (Auto) 700 (0-900) /uL Eos # (Auto) 100 (0-450) /uL Baso # (Auto) 100 (0-100) /uL PT 10.7 (9.4-12.5) SECONDS INR 0.9 (0.9-1.3) APTT 36 (25.1-36.5) SECONDS Sodium 140 (137-145) mmol/L Potassium 4.4 (3.4-5.1) mmol/L Chloride 104 (98-107) mmol/L Carbon Dioxide 26 (22-32) mmol/L BUN 32 H (9-20) mg/dL Creatinine 1.43 H (0.66-1.25) mg/dL Estimated GFR 51 L (>60) mL/min BUN/Creatinine Ratio 22.4 H (6-22) Glucose 157 H (70-99) mg/dL Calcium 9.5 (8.4-10.2) mg/dL Total Bilirubin 0.9 (0.2-1.3) mg/dL AST 29 (17-59) IU/L ALT 19 (<50) IU/L Alkaline Phosphatase 87 (38-126) U/L Total Creatine Kinase 183 H (55-170) U/L Troponin I 0.018 0.021 (0.01-0.034) ng/mL NT-Pro-B Natriuret Pep 463 H (<125) pg/mL Total Protein 7.3 (6.3-8.2) g/dL Albumin 4.3 (3.5-5.0) g/dL Globulin 3.0 (1.7-4.1) g/dL Albumin/Globulin Ratio 1.4 (1.0-2.8) Lipase 80 (23-300) U/L ECG Data Attestation: I personally reviewed and interpreted this ECG as follows: Prior ECG tracings: available for review Interpretation: Junctional rhythm rate of 59 QRS of 108 QTC of 427, patient was P waves with some beats but not all. No acute ST elevation depression noted. Patient has prior from 11/28/24 which is read as atrial fibrillation but appears to be more sinus rhythm with the occasional PVC although patient had echo in the day that shows atrial fib. EKG 2. Sinus rhythm with the occasional PVCs rate of 64 MA 128 QRS of 108 QTC of 455. MDM Narrative Medical decision making narrative: EKG junctional rhythm does have P waves with some beets, no dropped beats. Rate of 59. Repeat EKG shows sinus rhythm with occasional PVC Labs white count of 6.5 hemoglobin is 11.9 consistent with priors which are 10-11, platelets are 220, coags are negative, creatinine is 1.43 was 1.14 in November 2024, BUN 32 electrolytes are appropriate glucose is 157, total CK is 183, troponin is 0.018 consistent with the patient's priors in November. BNP is 463 improved from November of 2024. When it was 3170. LFTs are negative Chest x-ray shows no acute cardiopulmonary abnormality seen. Chronically elevated left hemidiaphragm. No focal consolidation. No pleural effusions or pneumothorax. Mediastinal contours appear normal. Heart size is normal. No suspicious bony lesions. Overlying soft tissues appear unremarkable. Echo from 11/28/2024. Shows AFib with heart rates 61-85 during exam left ventricular wall thickness mildly increased left ventricular ejection fraction 50 % +/-5% does talk function could not be accurately assessed due to atrial fibrillation. Right ventricle was normal in size. Right ventricle systolic function mildly reduced. No obvious valvular abnormalities. No pericardial effusion. Patient had aspirin upon arrival, was quite hypertensive but has somewhat improved during his stay. On rechecked at 0945 patient's symptoms have resolved. Reviewed findings and for repeat troponin and EKG. Discussed findings with the patient today, he was atrial fib related recorded from November on his echo. Discussed and they note that he was being seen for pneumonia at that time and felt it was related to that. Discussed findings from today he feels comfortable returning home but we would like patient to follow up for Holter/ZIO patch although atrial fibrillation was noted today. Patient's blood pressure is improved without any intervention. He states regularly it is 120s at home. Discharge Plan Departure Patient Disposition: Home Clinical Impression: Palpitations Instructions: DI for Palpitations Activity Restrictions/Additional Instructions: Follow up with your primary care for rechecked, your prior echo showed atrial fibrillation you did have a junctional rhythm on 1 of your EKGs but no other arrhythmias noted. I would discuss with your physician about following up for a ZIO patch or Holter monitor at home. Please return if you have recurrent symptoms, new chest pain, increasing shortness of breath, lightheadedness or passing out, new swelling in extremities or other new or concerning changes. Prescriptions: No Action lisinopril 20 mg tablet 20 mg PO QDAY Qty: 90 3RF albuterol sulfate [Ventolin HFA] 90 mcg/actuation HFA aerosol inhaler 1 puff INHALATION PRN PRN (Reason: bronchospasm) Qty: 18 3RF Rx Instructions: Inhale one puff by mouth as needed for brochospasm amlodipine 5 mg Tablet 10 mg PO BEDTIME duloxetine 30 mg Capsule,Delayed Release(Dr/Ec) 30 mg PO BEDTIME metformin [Glucophage] 500 mg tablet 1,000 mg PO BIDCC tamsulosin [Flomax] 0.4 mg capsule 0.4 mg PO QDAY Rx Instructions: 1 pill in AM, 2 pills in PM atorvastatin [Lipitor] 20 mg tablet 20 mg PO BEDTIME pantoprazole 40 mg tablet,delayed release (DR/EC) 40 mg PO BID Qty: 60 6RF baclofen 20 mg tablet 20 mg PO 3XD Rx Instructions: Takes at routinely at 0100 and 1400 pregabalin 100 mg capsule 100 mg PO DAILY albuterol sulfate [Ventolin HFA] 90 mcg/actuation Hfa Aerosol Inhaler 2 puff INHALATION Q4-6H PRN (Reason: Shortness Of Breath) clopidogrel [Plavix] 75 mg Tablet 75 mg PO DAILY prednisone 20 mg Tablet 40 mg PO DAILY Qty: 13 0RF Rx Instructions: Take 2 tabs daily x 2 days, then 1.5 tabs daily x 3 days, then 1 tab daily x 3 days, then 1/2 tab daily x 3 days, then stop Referrals: Elton Dang MD [Primary Care Provider, Family Practice] Stand Alone Forms: Patient Portal/API
--- NOTE | 2025-02-09 08:15 | DI.RAD.S_ITS ---
PROCEDURE: XR CHEST 1V INDICATIONS: chest pain TECHNIQUE: One view of the chest was acquired. COMPARISON: [facility], CR, XR CHEST 1V, 11/28/2024, 11:24. [facility], CR, XR CHEST 1V, 09/11/2020, 11:07. FINDINGS: Surgical changes and devices: None. Lungs and pleura: Chronically elevated left hemidiaphragm. No focal consolidation. No pleural effusions or pneumothorax. Mediastinum: Mediastinal contours appear normal. Heart size is normal. Bones and chest wall: No suspicious bony lesions. Overlying soft tissues appear unremarkable. IMPRESSION: No acute cardiopulmonary abnormality is seen. Approved by: Timothy Hollingsworth M.D. on 02/09/2025 at 8:39
--- NOTE | 2025-02-09 08:16 | EKG_ITS ---
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
[2025-02-09 08:21] LABS: Add Manual Diff / Slide Review NO; Basophils Absolute Auto 100 /uL (0-100); Basophils Percent Auto 0.8 % (0-2); Eosinophils Absolute Auto 100 /uL (0-450); Eosinophils Percent Auto 1.9 % (2-4); Hematocrit 36.4 % (41-53); Hemoglobin 11.9 g/dL (13.5-17.5); Lymphocytes Absolute Auto 1500 /uL (1100-4500); Lymphocytes Percent Auto 23.4 % (25-40); Mean Corpuscular HGB Conc 32.8 % (30-36); Mean Corpuscular Hemoglobin 28.1 PG (26-34); Mean Corpuscular Volume 85.8 fL (80-100); Monocytes Absolute Auto 700 /uL (0-900); Monocytes Percent Auto 10.5 % (3-14); Neutrophils Absolute Auto 4100 /uL (1500-7000); Neutrophils Percent Auto 63.4 % (50-75); Platelet Count 220 X10^3/uL (150-400); Red Blood Cell Count 4.24 X10^6/uL (4.5-5.9); Red Cell Distribution Width 15.7 % (11.6-14.8); White Blood Cell Count 6.5 X10^3/uL (4.5-11.0)
[2025-02-09] MEDS: ASPIRIN 81 MG CHEW TAB 324 MG PO (08:22)
[2025-02-09 08:28] LABS: INR 0.9 (0.9-1.3); Prothrombin Time 10.7 SECONDS (9.4-12.5)
[2025-02-09 08:31] LABS: PTT Partial Thromboplastin Tim 36 SECONDS (25.1-36.5)
[2025-02-09 08:33] LABS: Alanine Aminotransferase 19 IU/L (<50); Albumin 4.3 g/dL (3.5-5.0); Albumin Globulin Ratio 1.4 (1.0-2.8); Alkaline Phosphatase 87 U/L (38-126); Aspartate Aminotransferase 29 IU/L (17-59); BUN Creatinine Ratio 22.4 (6-22); Bilirubin Total 0.9 mg/dL (0.2-1.3); Blood Urea Nitrogen 32 mg/dL (9-20); Calcium 9.5 mg/dL (8.4-10.2); Carbon Dioxide 26 mmol/L (22-32); Chloride 104 mmol/L (98-107); Creatine Kinase 183 U/L (55-170); Estimated Glomerular Filt Rate 51 mL/min (>60); Glucose 157 mg/dL (70-99); HEMOLYSIS 20 (0-50); Lipase 80 U/L (23-300); Potassium 4.4 mmol/L (3.4-5.1); Sodium 140 mmol/L (137-145); Total Protein 7.3 g/dL (6.3-8.2)
[2025-02-09 08:45] LABS: NT-proBNP (BNP-Adult 18+) 463 pg/mL (<125); Troponin I 0.018 ng/mL (0.01-0.034)
--- NOTE | 2025-02-09 10:14 | EKG_ITS ---
[place] [address] [place] [id number] Test Date: 2025-02-09 Pat Name: Sherwin Sparks Department: 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
[2025-02-09 10:48] LABS: Troponin I 0.021 ng/mL (0.01-0.034)
--- NOTE | 2025-02-09 11:21 | PC.NURSE ---
Pt sitting on stretcher, RA, NAD, A&Ox4, breathing even/equal/unlabored at this time. Pt endorses decrease in symptoms. Pt able to ambulate from restroom with steady gait without cane without incident
== END 2025-02-09 12:02 | disposition home or self-care (01) ==
PROVIDERS: Emergency Provider Emergency Medicine; Family Provider Family Medicine; PCP Family Medicine
DX: R00.2 Palpitations (principal); C61 Malignant neoplasm of prostate; Z79.01 Long term (current) use of anticoagulants
CPT/HCPCS: 36415; 71045; 80053; 82550; 83690; 83880; 84484; 85025; 85610; 85730; 93005; 99284

== ENCOUNTER → 2025-03-12 14:19 | Outpatient (CLI) | payer OTHER, SELFPAY ==
[2024-11-28 18:08] VITALS: BMI 33.6
[2025-03-12 15:58] LABS: Prostate Specific Antigen < 0.064 ng/mL (0.10-4.00)
== END ==
PROVIDERS: PCP Family Medicine; Referring Provider Radiology Radiation Oncology; Visit Provider Radiology Radiation Oncology
DX: C61 Malignant neoplasm of prostate (principal)
CPT/HCPCS: 36415; 51798; 81002; 84153; 99213

== ENCOUNTER 2025-05-07 18:37 | Inpatient (IN) | payer OTHER, SELFPAY ==
[2024-11-28 18:08] VITALS: BMI 33.6
[2025-05-07] VITALS (14 sets, daily range): BP systolic 177–209; BP diastolic 71–90; PULSE 55–64; RESP 14–22; TEMP 35.6–36.4; O2SAT 91–99; BMI 37.0
--- NOTE | 2025-05-07 18:44 | EKG_ITS ---
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
--- NOTE | 2025-05-07 18:44 | DI.RAD.S_ITS ---
PROCEDURE: XR CHEST 1V INDICATIONS: Chest Pain TECHNIQUE: One view of the chest was acquired. COMPARISON: [facility], CR, XR CHEST 1V, 02/09/2025, 8:14. FINDINGS: Surgical changes and devices: Monitoring wires. Lungs and pleura: Strandy and patchy airspace opacities in the bilateral infrahilar regions. Elevation of the left hemidiaphragm, chronic. No pneumothorax or pleural effusions. Mediastinum: Mediastinal contours appear normal. Heart size is normal. Bones and chest wall: No suspicious bony lesions. Overlying soft tissues appear unremarkable. IMPRESSION: Bibasilar strandy opacities suggesting atelectasis or infiltrate. Dictated by: Criss Aldana M.D. on 05/07/2025 at 19:16 Approved by: Criss Aldana M.D. on 05/07/2025 at 19:17
--- NOTE | 2025-05-07 18:54 | DI.CT.S_ITS ---
PROCEDURE: CT ANGIO HEAD AND NECK INDICATIONS: trouble with speech,LKN 1200 TECHNIQUE: After the administration of intravenous contrast, 1 mm thick sections acquired from the aortic arch through the [place]. 3-dimensional zkzojjc-vstiivioy-oolngolyzr (MIP) and/or volume rendering reformats were acquired of the central intracranial vasculature and neck separately. For radiation dose reduction, the following was used: automated exposure control, adjustment of mA and/or kV according to patient size. COMPARISON: None. FINDINGS: Image quality: Diagnostic. Cerebral CT Angiogram: Internal carotid arteries: No acute findings. Intracranial ICA demonstrate moderate circumferential atherosclerotic calcification in the cavernous portion, probably stenotic. No occlusion. No aneurysm. Anterior cerebral arteries: Unremarkable. No significant stenosis. No occlusion. No aneurysm. Middle cerebral arteries: Unremarkable. No significant stenosis. No occlusion. No aneurysm. Posterior cerebral arteries: Unremarkable. No significant stenosis. No occlusion. No aneurysm. Basilar artery: Unremarkable. No significant stenosis. No occlusion. No aneurysm. Vertebral arteries: Unremarkable as visualized. Dural venous sinuses: Unremarkable given phase of enhancement. Other: Arterial phase appearance of the brain parenchyma is unremarkable. Neck CT Angiogram: Internal carotid arteries: Unremarkable. No significant stenosis. No dissection or occlusion. Common carotid arteries: Unremarkable. No significant stenosis. No dissection or occlusion. External carotid arteries: Unremarkable. No occlusion. Vertebral arteries: The left vertebral artery is diminutive throughout its entire course, and is no longer well opacified at the level of C2. Right vertebral artery is well opacified though there is circumferential calcification at the level of the foramen magnum. Distal most left vertebral artery reconstitutes through cerebellar collateral. Aortic Arch and Mediastinum: Partially visualized aortic arch unremarkable without evidence of aneurysm. Origins of the great vessels unremarkable. Other: Marked surgical changes in the cervical spine with placement of stabilizing deloris from C2 through C7 and corpectomies of the majority of the cervical spine. Posterior longitudinal ligament osteophytosis from C7 through T2. Findings in the upper chest consistent with prior exposure to granulomatous disease. IMPRESSION: No significant intracranial arterial abnormality is seen. No significant abnormality is seen within the arteries of the neck. Probably chronically diminutive and distally occluded left vertebral artery. Circumferential atherosclerotic calcification involving both intracranial internal carotid arteries and the right intracranial vertebral artery. Any quantitative measurements of stenosis were performed using NASCET criteria. Dictated by: Criss Aldana M.D. on 05/07/2025 at 19:17 Approved by: Criss Aldana M.D. on 05/07/2025 at 19:29
--- NOTE | 2025-05-07 18:54 | DI.CT.S_ITS ---
PROCEDURE: CT STROKE INDICATIONS: Positive BE-FAST, Stroke symptoms TECHNIQUE: Noncontrast 4.5 mm thick angled axial sections acquired from the foramen magnum to the vertex, with coronal reformats. For radiation dose reduction, the following was used: automated exposure control, adjustment of mA and/or kV according to patient size. COMPARISON: None. FINDINGS: Image quality: Diagnostic CSF spaces: Basal cisterns are patent. Lateral ventricles are symmetric. Volume: Vascular calcifications. Periventricular white matter disease is commonly seen with chronic microangiopathy. Volume loss is present. These findings are moderate Brain: No intracranial hemorrhage. Donis-white differentiation is grossly maintained. Craniofacial structures: Mild paranasal sinus mucosal thickening. IMPRESSION: No acute intracranial pathology. Called to Dr. Rankin. Consider MRI if there is high concern for infarction. This study fulfills neurological imaging criteria for inclusion or exclusion of acute stroke therapies based on available published neurological imaging guidelines. Dictated by: Ricardo Heard M.D. on 05/07/2025 at 19:12 Approved by: Ricardo Heard M.D. on 05/07/2025 at 19:15
--- NOTE | 2025-05-07 18:55 | ED_ITS ---
HPI - Fall General Chief Complaint: Trauma Stated Complaint: chest pain, slurred speach, fell last night Time Seen by Provider: 05/07/25 18:44 Source: patient and family Mode of arrival: Wheelchair History of Present Illness HPI Narrative: 74-year-old male patient with a history of hypertension, dyslipidemia, type 2 diabetes, prostate cancer, CHF, asthma and chronic leg weakness from a previous TIA/CVA and from cervical surgery and neck problems. He uses a walker. Patient was using his walker but lost his balance or his strength and fell twice last evening to his knees with no injury of significance. He fell to his knees and then got up and fell again but no head injury or neck pain. Since that time he has had sharp left lower parasternal chest pain through the night. He did not keep him awake. Worse with movement and breathing. Also, since about 2:00 p.m. this afternoon his says that he has had trouble finding his words and slurred speech with no facial droop or new limb weakness. Related Data Home Medications ?Medication ?Instructions ?Recorded ?Confirmed duloxetine 30 mg capsule,delayed 30 mg PO BEDTIME 09/0505/07/25 release metformin 500 mg tablet 1,000 mg PO BIDCC 09/30/19 0 05/07/25 (Glucophage) tamsulosin 0.4 mg capsule (Flomax) 0.4 mg PO BID 09/3005/07/25 atorvastatin 20 mg tablet (Lipitor) 20 mg PO BEDTIME 0 02/13/20 05/07/25 baclofen 20 mg tablet 20 mg PO BID 11/28/24 pregabalin 100 mg capsule 100 mg PO DAILY 11/28/2411/26 clopidogrel 75 mg tablet (Plavix) 75 mg PO DAILY 11/2905/07/25 clonazepam 1 mg tablet 0.5 mg PO .hs 05/07/2505/07 Previous Rx's ?Medication ?Instructions ?Recorded lisinopril 20 mg tablet 20 mg PO QDAY #90 tabs 09/07 albuterol sulfate 90 mcg/actuation 1 puff inhalation P RN PRN 12/03/19 aerosol inhaler (Ventolin HFA) bronchospasm #18 inhala tions pantoprazole 40 mg tablet,delayed 40 mg PO BID Gastrit is with anemia 09/11/20 release #60 tabs Allergies Allergy/AdvReac Type Severity Reaction Status Date / Time No Known Drug Allergies Allergy Verified 05/07/25 18:46 Review of Systems Review of Systems ROS Unobtainable: All systems reviewed & are unremarkable except as noted in HPI and below Cardiovascular Cardiovascular: Reports as per HPI Respiratory Respiratory: Reports as per HPI Musculoskeletal Musculoskeletal: Reports as per HPI Neurologic Neurologic: Reports as per HPI Patient History Medical History Androgen deprivation therapy Prostate cancer BPH loc w urin obs/LUTS Urinary retention BPH (benign prostatic hyperplasia) History of urinary retention Constipation Elevated PSA Claustrophobia Easy bruisability Undescended testicle of both sides Shortness of breath RLS (restless legs syndrome) Cervical stenosis of spinal canal Adopted Depression Anxiety Poor sleep Myelopathy Cervical myelopathy (11/16/17) Iron deficiency (07/31/17) Essential hypertension (07/14/14) 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 No distress. Appears well nourished and well hydrated Craniofacial: No evidence of trauma. Nontender and no swelling. No facial droop. Eyes: PERRLA EOMI conjunctiva clear HEENT: Oropharynx clear with no swelling, exudate or asymmetry of the pharynx. Nares clear. No sinus tenderness Neck: No tenderness or adenopathy. No meningismus. No JVD Lungs: Clear to auscultation with good air movement. No wheezing, rales or rhonchi. No respiratory distress Cardiac: Regular rate and rhythm with no appreciable murmur or gallop Abdomen: Soft, nontender with no distention or masses. Normal bowel sounds. No rebound or guarding Musculoskeletal: Patient has point tenderness of the left lower chest lateral to the sternum in a small area. Otherwise Exam of the extremities, axial spine and ribcage reveals no deformity, bony tenderness or swelling. Range of motion intact Neuro: Patient has hesitation and trouble finding his words and slightly dysarthric speech. Otherwise Alert and oriented. Cranial nerves, motor, sensory and cerebellar all grossly intact. No focal deficit Skin: Warm and normal color. No rashes Psychological: Normal affect and interaction. No evidence of delusion or psychosis. Normal mood. Initial Vital Signs Initial Vital Signs: Vital Signs Temperature 97.6 F 05/07/25 18:39 Pulse Rate 59 L 05/07/25 18:39 Respiratory Rate 14 05/07/25 18:39 Blood Pressure 177/76 H 05/07/25 18:39 Pulse Oximetry 94 05/07/25 18:39 Oxygen Delivery Method Room Air 05/07/25 18:39 Course Course Course Narrative: 21:20 Reassessment of patient reveals that he is now speaking normally according to the patient and his . No trouble finding his words. 21:35 I discussed the patient's care with Dr. Nelson, hospitalist who agrees to admit him for what appears to be a TIA with speech symptoms that have resolved. Patient has received aspirin, and amlodipine which is his nighttime blood pressure medication. Also, his most recent Blood pressure was 203/79. He is prescribed labetalol, 10 mg IV. Orders Ordered: ED Orders 05/07/25 18:44 XR chest 1V Stat EKG-12 Lead Stat 05/07/25 18:50 Complete Blood Count AUTO DIFF Stat Comprehensive Metabolic Panel Stat Lipase Stat Magnesium Stat NT-proBNP (BNP-Adult 18+) Stat PTT Partial Thromboplastin Markel Stat Prothrombin Time INR Stat Troponin & CK Cardiac Panel Stat 05/07/25 18:[address] angio head and neck Stat 05/07/25 20:50 Urine Drug Screen, Rapid Stat 05/07/25 22:28 Consult to Occupational Therapy Evaluate & Treat Consult to Physical Therapy Evaluate & Treat 05/08/25 MR head/brain wo con Routine 05/08/25 05:00 Basic Metabolic Panel Routine Complete Blood Count AUTO DIFF Routine Magnesium Routine Acetaminophen (Acetaminophen 325 Mg Tablet) 650 mg PO Q6H PRN PRN Reason: Fever/Mild Pain (1-3) Atorvastatin Calcium (Atorvastatin 20 Mg Tablet) 20 mg PO BEDTIME [facility] Baclofen (Baclofen 10 Mg Tablet) 20 mg PO BID [facility] Last Admin: 05/08/25 00:07 Dose: 20 mg Documented By: [facility] Clopidogrel Bisulfate (Clopidogrel 75 Mg Tablet) 75 mg PO DAILY [facility] Duloxetine HCl (Duloxetine 30 Mg Capsule.Dr) 30 mg PO BEDTIME [facility] Enalaprilat (Enalaprilat 2.5 Mg/ 2 Ml Vial) 2.5 mg IV Q6H [facility] Last Admin: 05/07/25 23:07 Dose: 2.5 mg Documented By: AKILAH Hydralazine HCl (Hydralazine 20 Mg/Ml Vial) 10 mg IV Q6HR PRN PRN Reason: Hypertension Last Admin: 05/08/25 00:08 Dose: 10 mg Documented By: AKILAH Dextrose (D10w) 100 mls @ 999 mls/hr IV PRN PRN PRN Reason: Hypoglycemia Insulin Human Lispro (Insulin Lispro 100 Unit/Ml 3ml Vial) 0 unit SUBCUT ACHS [facility]; Protocol Lisinopril (Lisinopril 20 Mg Tablet) 20 mg PO DAILY [facility] Naloxone HCl (Naloxone 0.4 Mg/Ml Vial) 0.2 mg IV Q2MIN PRN PRN Reason: Opiate Reversal Ondansetron HCl (Ondansetron 4 Mg/2 Ml Inj) 4 mg IV Q8HR PRN PRN Reason: Nausea And Vomiting Pantoprazole Sodium (Pantoprazole Dr 40 Mg Tablet) 40 mg PO BID [facility] Pregabalin (Pregabalin 25 Mg Capsule) 100 mg PO DAILY [facility] Sodium Chloride (Sodium Chloride 0.9% Flush) 10 ml IV PRN PRN PRN Reason: Flush Last Admin: 05/08/25 00:11 Dose: 10 ml Documented By: Admin: 05/07/25 23:07 Dose: 10 ml Documented By: AKILAH Sodium Chloride (Sodium Chloride 0.9% Flush) 10 ml IV BID [facility] Tamsulosin HCl (Tamsulosin 0.4 Mg Capsule) 0.4 mg PO BID [facility] Discontinued Medications Amlodipine Besylate (Amlodipine 5 Mg Tablet) 10 mg PO NOW ONE Stop: 05/07/25 21:39 Last Admin: 05/07/25 21:52 Dose: 10 mg Documented By: KALYN Aspirin (Aspirin 81 Mg Chew Tab) 324 mg PO NOW ONE Stop: 05/07/25 21:39 Last Admin: 05/07/25 21:53 Dose: 324 mg Documented By: KALYN Labetalol HCl (Labetalol 20 Mg/4 Ml Syringe) 10 mg IV NOW ONE Stop: 05/07/25 21:38 Last Admin: 05/07/25 21:53 Dose: Not Given Documented By: KALYN Ondansetron HCl (Ondansetron 4 Mg/2 Ml Inj) 4 mg IV NOW PRN PRN Reason: Nausea And Vomiting Vital Signs Vital signs: Vital Signs - 8 hr 05/07/25 18:39 05/07/25 18:48 05/07/25 19:00 Temperature 97.6 F Pulse Rate 59 L 56 L 57 L Respiratory Rate 14 Blood Pressure 177/76 H Pulse Oximetry 94 93 Oxygen Delivery Method Room Air 05/07/25 19:30 05/07/25 19:39 05/07/25 19:39 Temperature Pulse Rate 59 L 59 L Respiratory Rate 16 Blood Pressure 190/80 H Pulse Oximetry 91 93 Oxygen Delivery Method Room Air 05/07/25 20:00 05/07/25 20:00 05/07/25 20:04 Temperature Pulse Rate 59 L 61 Respiratory Rate 17 Blood Pressure 209/86 H Pulse Oximetry 91 92 Oxygen Delivery Method Room Air 05/07/25 20:04 05/07/25 20:30 05/07/25 20:30 Temperature Pulse Rate 59 L Respiratory Rate 22 Blood Pressure 185/86 H 208/90 H Pulse Oximetry 95 Oxygen Delivery Method Room Air 05/07/25 20:53 05/07/25 20:53 05/07/25 21:00 Temperature Pulse Rate 64 Respiratory Rate 21 Blood Pressure 202/86 H 199/71 H Pulse Oximetry 95 Oxygen Delivery Method Room Air 05/07/25 21:00 05/07/25 21:30 05/07/25 21:31 Temperature Pulse Rate 55 L 61 61 Respiratory Rate 18 20 21 Blood Pressure Pulse Oximetry 99 96 95 Oxygen Delivery Method Room Air Room Air Room Air 05/07/25 21:31 Temperature Pulse Rate Respiratory Rate Blood Pressure 203/79 H Pulse Oximetry Oxygen Delivery Method MDM - Fall Lab Data 05/07/25 18:50 05/07/25 18:50 Labs: Lab Results 05/07/25 05/07/25 Range/Units 18:50 20:50 WBC 6.1 (4.5-11.0) X10^3/uL RBC 4.44 L (4.5-5.9) X10^6/uL Hgb 12.2 L (13.5-17.5) g/dL Hct 37.8 L (41-53) % MCV 85.2 (80-100) fL MCH 27.4 (26-34) PG MCHC 32.2 (30-36) % RDW 16.1 H (11.6-14.8) % Plt Count 184 (150-400) X10^3/uL Neut % (Auto) 64.4 (50-75) % Lymph % (Auto) 23.6 L (25-40) % [place] % (Auto) 8.8 (3-14) % Eos % (Auto) 2.6 (2-4) % Baso % (Auto) 0.6 (0-2) % Neut # (Auto) 3900 (6494-6126) /uL Lymph # (Auto) 1400 (9834-9810) /uL [place] # (Auto) 500 (0-900) /uL Eos # (Auto) 200 (0-450) /uL Baso # (Auto) 0 (0-100) /uL PT 10.8 (9.4-12.5) SECONDS INR 1.0 (0.9-1.3) APTT 30 (25.1-36.5) SECONDS Sodium 139 (137-145) mmol/L Potassium 5.0 (3.4-5.1) mmol/L Chloride 104 (98-107) mmol/L Carbon Dioxide 27 (22-32) mmol/L BUN 34 H (9-20) mg/dL Creatinine 1.10 (0.66-1.25) mg/dL Estimated GFR > 60 (>60) mL/min BUN/Creatinine Ratio 30.9 H (6-22) Glucose 149 H (70-99) mg/dL Calcium 9.3 (8.4-10.2) mg/dL Magnesium 1.8 (1.6-2.3) mg/dL Total Bilirubin 0.6 (0.2-1.3) mg/dL AST 31 (17-59) IU/L ALT 17 (<50) IU/L Alkaline Phosphatase 77 (38-126) U/L Total Creatine Kinase 157 (55-170) U/L Troponin I < 0.012 (0.01-0.034) ng/mL NT-Pro-B Natriuret Pep 176 H (<125) pg/mL Total Protein 7.3 (6.3-8.2) g/dL Albumin 4.3 (3.5-5.0) g/dL Globulin 3.0 (1.7-4.1) g/dL Albumin/Globulin Ratio 1.4 (1.0-2.8) Lipase 295 (23-300) U/L U Opiates 300ng/mL cut Negative (Negative) Ur Oxycodone Screen Negative (Negative) Urine Methadone Screen Negative (Negative) Ur Barbiturates Screen Negative (Negative) U Tricyclic Antidepress Negative (Negative) Ur Phencyclidine Scrn Negative (Negative) Ur Amphetamines Screen Negative (Negative) U Methamphetamines Scrn Negative (Negative) Ur MDMA Scrn (Ecstasy) Negative (Negative) U Benzodiazepines Scrn Negative (Negative) Urine Cocaine Screen Negative (Negative) U Marijuana (THC) Screen Negative (Negative) Urine pH Normal (Normal) Urine Specific [place] Normal (Normal) Ur Creatinine Normal (Normal) Urine Dip Bedside Urine Glucose Negative Bedside Urine Bilirubin - Negative Bedside Urine Ketone - Negative Urine Specific [place] 1.015 Bedside Urine Occult Blood - Negative Bedside Urine pH 5.5 Bedside Urine Protein - Negative Bedside Urine Urobilinogen - Negative Bedside Urine Nitrite - Negative Bedside Urine Leukocytes - Negative Esterase Imaging Data CT scan - head: Radiologist's Impression: IMPRESSION: No acute intracranial pathology. Called to Dr. Rankin. Consider MRI if there is high concern for infarction. CTA head and neck: Radiologist's Impression: IMPRESSION: No significant intracranial arterial abnormality is seen. No significant abnormality is seen within the arteries of the neck. Probably chronically diminutive and distally occluded left vertebral artery. Circumferential atherosclerotic calcification involving both intracranial internal carotid arteries and the right intracranial vertebral artery. ECG Data Attestation: I personally reviewed and interpreted this ECG as follows: (Sinus bradycardia with premature atrial complexes. Rate 56. Incomplete RBBB. Borderline LVH. No ischemic changes ) MDM Narrative Medical decision making narrative: Patient had expressive aphasia and dysarthria which has resolved within 24 hours. Consistent with TIA. He is admitted for TIA/CVA to hospitalist service for continued monitoring and probable MRI in the morning. In addition he had a ground level fall with no significant injury. He had left chest wall pain with negative troponin and EKG. Discharge Plan Departure Patient Disposition: Admitted as Observation Clinical Impression: Brain TIA, Acute chest wall pain Admit Date/Time: 05/07/25 21:57 Admit Provider: Kiran Nelson
--- NOTE | 2025-05-07 18:56 | PC.NURSE ---
Weakness to legs is chronic and at his baseline per patient and significant other.
[2025-05-07 18:59] LABS: Add Manual Diff / Slide Review NO; Hematocrit 37.8 % (41-53); Hemoglobin 12.2 g/dL (13.5-17.5); Lymphocytes Absolute Auto 1400 /uL (1100-4500); Mean Corpuscular HGB Conc 32.2 % (30-36); Mean Corpuscular Hemoglobin 27.4 PG (26-34); Mean Corpuscular Volume 85.2 fL (80-100); Platelet Count 184 X10^3/uL (150-400)
[2025-05-07 19:09] LABS: INR 1.0 (0.9-1.3); Prothrombin Time 10.8 SECONDS (9.4-12.5)
[2025-05-07 19:12] LABS: Alanine Aminotransferase 17 IU/L (<50); Albumin 4.3 g/dL (3.5-5.0); Albumin Globulin Ratio 1.4 (1.0-2.8); Alkaline Phosphatase 77 U/L (38-126); Blood Urea Nitrogen 34 mg/dL (9-20); Calcium 9.3 mg/dL (8.4-10.2); Carbon Dioxide 27 mmol/L (22-32); Chloride 104 mmol/L (98-107); Creatine Kinase 157 U/L (55-170); Estimated Glomerular Filt Rate > 60 mL/min (>60); Globulin 3.0 g/dL (1.7-4.1); Glucose 149 mg/dL (70-99); HEMOLYSIS 43 (0-50); Lipase 295 U/L (23-300); Magnesium 1.8 mg/dL (1.6-2.3); PTT Partial Thromboplastin Tim 30 SECONDS (25.1-36.5); Potassium 5.0 mmol/L (3.4-5.1); Sodium 139 mmol/L (137-145); Total Protein 7.3 g/dL (6.3-8.2)
[2025-05-07 19:23] LABS: NT-proBNP (BNP-Adult 18+) 176 pg/mL (<125); Troponin I < 0.012 ng/mL (0.01-0.034)
--- NOTE | 2025-05-07 20:59 | PC.NURSE ---
Pt ambulatory with walker (which is baseline) to restroom without difficulty
--- NOTE | 2025-05-07 21:00 | PC.NURSE ---
Pt and state they feel all symptoms have resolved at this time.
[2025-05-07 21:08] LABS: Ur Creatinine Normal (Normal); Ur Specific Gravity Normal (Normal); Urine MDMA Negative (Negative); Urine Methamphetamines Negative (Negative); Urine THC Negative (Negative); Urine Tricyclic Antidepressant Negative (Negative); Urine pH Normal (Normal)
--- NOTE | 2025-05-07 21:47 | PM.HP.1 ---
History of Present Illness History of Present Illness Chief complaint: chest pain, slurred speach, fell last night Narrative: 74M with PMH of prostate cancer, BPH w/ LUTS, RLS, C-spines stenosis, depression/anxeity, BECKIE, HTN, hyperlipidemia, DM2, past CVA with chronic leg weakness presents with fall x2 yesterday from walker without head injury or syncope now with left lower chest tenderness, reproducible, not worse with inspiration, and since this afternoon, new dysphagia without new focal weakness. Initial labs and imaging were acutely unremarkable. He also had elevated bp initially 177 systolic and most recently 203. He has no new symptoms from what has been described. Blood pressure normally runs 120s systolic at home. 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: [employer] travel history: recurrent ([place] every 1-2 years.) leisure activities: reading and other (Gardening) Smoking Status: Former smoker Tobacco: How many years used: 40 Smokeless tobacco user: other (Cigarettes) quit status: quit date established (2005) second hand exposure: No alcohol intake: current substance use type: does not use Meds Home Medications and Allergies Home Medications ?Medication ?Instructions ?Recorded ?Confirmed ?Type lisinopril 20 mg tablet 20 mg PO QDAY #90 tabs 09/07/18 05/07/25 Rx duloxetine 30 mg capsule,delayed 30 mg PO BEDTIME 09/30/19 05/07/25 History release metformin 500 mg tablet 1,000 mg PO BIDCC 09/30/19 05/07/25 History (Glucophage) tamsulosin 0.4 mg capsule (Flomax) 0.4 mg PO BID 09/30/19 05/07/25 History albuterol sulfate 90 mcg/actuation 1 puff inhalation PRN PRN 12/03/19 05/07/25 Rx aerosol inhaler (Ventolin HFA) bronchospasm #18 inhalations atorvastatin 20 mg tablet (Lipitor) 20 mg PO BEDTIME 02/13/20 05/07/25 History pantoprazole 40 mg tablet,delayed 40 mg PO BID Gastritis with anemia 09/11/20 05/07/25 Rx release #60 tabs baclofen 20 mg tablet 20 mg PO BID 11/28/24 05/07/25 History pregabalin 100 mg capsule 100 mg PO DAILY 11/28/24 05/07/25 History clopidogrel 75 mg tablet (Plavix) 75 mg PO DAILY 11/29/24 05/07/25 History clonazepam 1 mg tablet 0.5 mg PO .hs 05/07/25 05/07/25 History Allergies Allergy/AdvReac Type Severity Reaction Status Date / Time No Known Drug Allergies Allergy Verified 05/07/25 18:46 Review of Systems Review of Systems Narrative: As per HPI. Rest of 10-system review negative. Exam Vital Signs (past 8 hours): - 05/07/25 18:39 05/07/25 18:48 05/07/25 19:00 Temperature 97.6 F Pulse Rate 59 L 56 L 57 L Respiratory Rate 14 Blood Pressure 177/76 H Pulse Oximetry 94 93 Oxygen Delivery Method Room Air 05/07/25 19:30 05/07/25 19:39 05/07/25 19:39 Temperature Pulse Rate 59 L 59 L Respiratory Rate 16 Blood Pressure 190/80 H Pulse Oximetry 91 93 Oxygen Delivery Method Room Air 05/07/25 20:00 05/07/25 20:00 05/07/25 20:04 Temperature Pulse Rate 59 L 61 Respiratory Rate 17 Blood Pressure 209/86 H Pulse Oximetry 91 92 Oxygen Delivery Method Room Air 05/07/25 20:04 05/07/25 20:30 05/07/25 20:30 Temperature Pulse Rate 59 L Respiratory Rate 22 Blood Pressure 185/86 H 208/90 H Pulse Oximetry 95 Oxygen Delivery Method Room Air 05/07/25 20:53 05/07/25 20:53 05/07/25 21:00 Temperature Pulse Rate 64 Respiratory Rate 21 Blood Pressure 202/86 H 199/71 H Pulse Oximetry 95 Oxygen Delivery Method Room Air 05/07/25 21:00 05/07/25 21:30 05/07/25 21:31 Temperature Pulse Rate 55 L 61 61 Respiratory Rate 18 20 21 Blood Pressure Pulse Oximetry 99 96 95 Oxygen Delivery Method Room Air Room Air Room Air 05/07/25 21:31 Temperature Pulse Rate Respiratory Rate Blood Pressure 203/79 H Pulse Oximetry Oxygen Delivery Method Oxygen Delivery Method Room Air Narrative Exam Narrative: Patient was evaluated entirely through 2-way audio/video telemedicine with RN assistance in exam. Physician was not present at beside in person at any time for this evaluation. Consent for telemedicine obtained from patient. Const Other: AA, NAD HENMT Other: NC/AT, PERRL, anicteric sclerae Neck Other: supple Chest Other: mild tenderness without skin discoloration or edema of lower chest tenderness L>R around T6 Resp Other: mildly diminished breath sounds bibasilar Cardio Other: RRR GI Other: S/NT/ND/+BS Skin Other: no rashes or bruising Neuro Other: occasional word finding difficulty but normal articulation of speech Extrem Other: no edema BLE Objective Imaging Chest x-ray: Radiologist's impression: Bibasilar strandy opacities suggesting atelectasis or infiltrate. CT scan - head: Radiologist's impression: no acute disease CTA brain/neck: Radiologist's impression: Probably chronically diminutive and distally occluded left vertebral artery Labs 05/07/25 18:50 05/07/25 18:50 Labs: Laboratory Results - last 24 hr 05/07/25 05/07/25 18:50 20:50 WBC 6.1 RBC 4.44 L Hgb 12.2 L Hct 37.8 L MCV 85.2 MCH 27.4 MCHC 32.2 RDW 16.1 H Plt Count 184 Neut % (Auto) 64.4 Lymph % (Auto) 23.6 L [place] % (Auto) 8.8 Eos % (Auto) 2.6 Baso % (Auto) 0.6 Neut # (Auto) 3900 Lymph # (Auto) 1400 [place] # (Auto) 500 Eos # (Auto) 200 Baso # (Auto) 0 PT 10.8 INR 1.0 APTT 30 Sodium 139 Potassium 5.0 Chloride 104 Carbon Dioxide 27 BUN 34 H Creatinine 1.10 Estimated GFR > 60 BUN/Creatinine Ratio 30.9 H Glucose 149 H Calcium 9.3 Magnesium 1.8 Total Bilirubin 0.6 AST 31 ALT 17 Alkaline Phosphatase 77 Total Creatine Kinase 157 Troponin I < 0.012 NT-Pro-B Natriuret Pep 176 H Total Protein 7.3 Albumin 4.3 Globulin 3.0 Albumin/Globulin Ratio 1.4 Lipase 295 U Opiates 300ng/mL cut Negative Ur Oxycodone Screen Negative Urine Methadone Screen Negative Ur Barbiturates Screen Negative U Tricyclic Antidepress Negative Ur Phencyclidine Scrn Negative Ur Amphetamines Screen Negative U Methamphetamines Scrn Negative Ur MDMA Scrn (Ecstasy) Negative U Benzodiazepines Scrn Negative Urine Cocaine Screen Negative U Marijuana (THC) Screen Negative Urine pH Normal Urine Specific [place] Normal Ur Creatinine Normal Assessment & Plan Assessment and plan (1) Acute chest wall pain: Status: Acute (2) Essential hypertension: Status: Chronic Assessment & Plan narrative: 74M with new onset dysphagia now resolved and falls x2 with uncontrolled HTN 1. Falls x2, non-syncopal, POA 2. New onset, now resolved dysphagia, POA 3. Uncontrolled HTN urgency 4. DM2 5. Chronic leg weakness Plan: 1. Admit to observation, telemetry 2. diabetic diet 3. PT/OT evaluation 4. MRI brain to r/o TIA 5. Labs in AM, TSH 6. SSI 7. resume home meds and add hydralazine IV prn to keep SBP >120 and <180 Code: Full DVT prophylaxis: SCDs Time-Based Coding :: [TOTAL MINUTES] spent with patient and on the chart (including review of chart, obtaining history, exam, reviewing outside data, placing orders, documenting exam and treatment plan, and counseling patient) on [DATE].
[2025-05-07] MEDS: ASPIRIN 81 MG CHEW TAB 324 MG PO (21:53)
[2025-05-07] MEDS: ENALAPRILAT 2.5 MG/ 2 ML VIAL IV (23:07)
[2025-05-07] MEDS: SODIUM CHLORIDE 0.9% FLUSH 10 ML IV (23:07)
--- NOTE | 2025-05-07 23:33 | PC.ADMIT ---
[email or web address] Reji Grace Admission Note: The patient,Sherwin Sparks,74 y/o, was given written information regarding hospital policies, unit procedures and contact persons. Patient's smoking status: Former smoker. Vital Signs - 8 hr 05/07/25 18:39 05/07/25 18:48 05/07/25 19:00 Temperature 97.6 F Pulse Rate 59 L 56 L 57 L Respiratory Rate 14 Blood Pressure 177/76 H Pulse Oximetry 94 93 Oxygen Delivery Method Room Air Oxygen Flow Rate 05/07/25 19:30 05/07/25 19:39 05/07/25 19:39 Temperature Pulse Rate 59 L 59 L Respiratory Rate 16 Blood Pressure 190/80 H Pulse Oximetry 91 93 Oxygen Delivery Method Room Air Oxygen Flow Rate 05/07/25 20:00 05/07/25 20:00 05/07/25 20:04 Temperature Pulse Rate 59 L 61 Respiratory Rate 17 Blood Pressure 209/86 H Pulse Oximetry 91 92 Oxygen Delivery Method Room Air Oxygen Flow Rate 05/07/25 20:04 05/07/25 20:30 05/07/25 20:30 Temperature Pulse Rate 59 L Respiratory Rate 22 Blood Pressure 185/86 H 208/90 H Pulse Oximetry 95 Oxygen Delivery Method Room Air Oxygen Flow Rate 05/07/25 20:53 05/07/25 20:53 05/07/25 21:00 Temperature Pulse Rate 64 Respiratory Rate 21 Blood Pressure 202/86 H 199/71 H Pulse Oximetry 95 Oxygen Delivery Method Room Air Oxygen Flow Rate 05/07/25 21:00 05/07/25 21:30 05/07/25 21:31 Temperature Pulse Rate 55 L 61 61 Respiratory Rate 18 20 21 Blood Pressure Pulse Oximetry 99 96 95 Oxygen Delivery Method Room Air Room Air Room Air Oxygen Flow Rate 05/07/25 21:31 05/07/25 22:25 05/07/25 22:36 Temperature 96.1 F L Pulse Rate 64 Respiratory Rate 17 Blood Pressure 203/79 H 201/86 H Pulse Oximetry 92 92 Oxygen Delivery Method Room Air Oxygen Flow Rate 0 0 05/07/25 23:24 Temperature Pulse Rate Respiratory Rate Blood Pressure Pulse Oximetry Oxygen Delivery Method Room Air Oxygen Flow Rate Patient admitted to room 218 from ER at 2225. He is alert and oriented except to day of month but does have some word finding difficulty. Breath sounds diminshed at bases but CTA with RA sat of 92%. HRR w/telemetry reading of SR w/PAC's. BP elevated at 201/86 and medicated with scheduled Enalapril and will recheck in 1h and if still elevated will give Hydralazine. Denied nausea. BT present and abdomen is soft; passing flatus and had BM 2d ago. Denied dysuria but does have some urgency and frequency related to hx of prostate cancer. Is able to turn himself in bed. I weak in all extremities especially left LE and has multiple recent falls so advised that he is not to get up without assistance and bed alarm activated; verbalized understanding. Bilateral calf SCD's applied. Denied pain. Has limited ROM in neck related to hx of cervical fusion. Has neuropathy in bilateral feet mostly on plantar surface. Oriented to bed controls and call light.
[2025-05-08] VITALS (17 sets, daily range): BP systolic 112–207; BP diastolic 52–84; PULSE 56–77; RESP 15–18; TEMP 35.6–36.3; O2SAT 90–95
--- NOTE | 2025-05-08 | DI.MRI.S_ITS ---
PROCEDURE: MR HEAD/BRAIN WO CON INDICATIONS: neurologic change, r/o TIA TECHNIQUE: Non-contrast axial T1 spin echo, axial T2 fast spin echo, sagittal and axial FLAIR, coronal T2 fast spin echo, axial gradient echo, axial diffusion and ADC through the brain. COMPARISON: None. FINDINGS: Image quality: Excellent. CSF spaces: Ventricles appear symmetric in size and shape. Basal cisterns are patent. No extra-axial fluid collections. Brain: No intracranial bleeds or mass effects. There is cerebral volume loss for age. There are periventricular and deep white matter chronic small vessel ischemic changes. Brainstem appears normal. Diffusion-weighted images show no acute infarct. No chronic ischemic insults. Normal intravascular flow voids are present. Skull and face: Calvarial bone marrow is normal in signal. Orbits are normal. Sinuses: Mild bilateral ethmoid sinus mucosal thickening. Mastoids are clear.. IMPRESSION: 1. No acute process. No recent infarct. 2. Mild volume loss and small vessel ischemic disease. Dictated by: Adrienne Castellanos M.D. on 05/08/2025 at 10:46 Approved by: Adrienne Castellanos M.D. on 05/08/2025 at 10:48
[2025-05-08] MEDS: BACLOFEN 10 MG TABLET 20 MG PO ×3 (00:07→22:09)
[2025-05-08] MEDS: hydrALAZINE 20 MG/ML VIAL 10 MG IV ×2 (00:08→06:20)
[2025-05-08] MEDS: SODIUM CHLORIDE 0.9% FLUSH 10 ML IV ×3 (00:11→08:32)
[2025-05-08] MEDS: ENALAPRILAT 2.5 MG/ 2 ML VIAL IV ×4 (04:11→22:20)
[2025-05-08 07:39] LABS: Blood Urea Nitrogen 28 mg/dL (9-20); Calcium 9.7 mg/dL (8.4-10.2); Carbon Dioxide 27 mmol/L (22-32); Chloride 103 mmol/L (98-107); Estimated Glomerular Filt Rate > 60 mL/min (>60); Glucose 141 mg/dL (70-99); HEMOLYSIS 49 (0-50); Magnesium 1.8 mg/dL (1.6-2.3); Potassium 4.7 mmol/L (3.4-5.1); Sodium 139 mmol/L (137-145)
[2025-05-08 07:58] LABS: Hematocrit 39.9 % (41-53); Hemoglobin 12.9 g/dL (13.5-17.5); Lymphocytes Absolute Auto 2100 /uL (1100-4500); Mean Corpuscular HGB Conc 32.4 % (30-36); Mean Corpuscular Hemoglobin 27.3 PG (26-34); Mean Corpuscular Volume 84.2 fL (80-100)
[2025-05-08 08:01] LABS: Add Manual Diff / Slide Review SLIDE REVIEW
--- NOTE | 2025-05-08 08:16 | P.PN_ITS ---
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 Patient presents with fall x2 yesterday from walker without head injury or syncope now with left lower chest tenderness, reproducible, not worse with inspiration. Since this afternoon, new dysphagia without new focal weakness. Initial labs and imaging were acutely unremarkable. He also had elevated bp initially 177 systolic and most recently 203. He has no new symptoms from what has been described. Blood pressure normally runs 120s systolic at home. Also has a past medical history of prostate cancer, BPH w/ LUTS, RLS, C-spines stenosis, depression/anxeity, BECKIE, HTN, hyperlipidemia, DM2, with chronic leg weakness Previous echocardiogram performed 11/29/2024: Interpretation Summary The study quality was technically difficult. The patient was in atrial fibrillation with heart rates between 61-85 bpm during the exam. Left ventricular wall thickness is mildly increased. Left ventricular ejection fraction is estimated to be 50 +/- 5%. Diastolic function could not be accurately assessed due to atrial fibrillation. The right ventricle is normal size. Right ventricular systolic function is mildly reduced. No obvious valvular abnormalities. Pulmonary artery pressures cannot be estimated because of the lack of a measurable TR jet velocity but the IVC suggests a CVP of around 15 mmHg. The ascending aorta is mildly enlarged. Findings in the emergency department notable on CTA of the head and neck for: Chronically diminutive and distally occluded left vertebral artery and circumferential atherosclerotic calcification involving both intracranial internal carotid arteries and right intracranial vertebral artery. Brain CT unrevealing for new infarct Clinical findings significant for dysphagia and word searching expressive aphasia Hospital course: 05/08: Patient receiving sedation for brain MRI this morning to evaluate for cerebrovascular accident. Dense expressive aphasia this morning MRI is negative Review of systems: No headache No fever or chills No chest pain palpitations No nausea vomiting Physical exam: Elderly male with dense expressive aphasia but does comprehend answers yes or no HEENT unremarkable Neck no JVD Heart rate and rhythm regular Lungs Abdomen is nontender Assessment and plan: Fall from walker with blunt chest wall injury without signs of fracture pneumothorax or hemothorax * No further evaluation indicated Dysphagia and expressive aphasia, possibly acute on chronic * Vascular study indicates significant intracranial cerebrovascular disease it may be culprit * Patient has paroxysmal atrial fibrillation and may be at risk for embolic cerebrovascular events * This episode may represent TIA which would increase the priority for favoring anticoagulation over antiplatelet for secondary prevention of CVA * Had previous modified barium swallow study earlier this year Cerebrovascular disease as mentioned above * Consider changing from antiplatelet to anticoagulation Previous stroke with medullary syndrome and strong correlation to finding of vertebral artery occlusion and atherosclerosis * Concern for recurrent ischemia and perhaps even medullary watershed phenomenon involving the anterior spinal arteries and vertebral arteries * We will discuss the above with Radiology Chronic medical conditions: * Prostate cancer * BPH loc w urin obs/LUTS * Cervical stenosis of spinal canal * Cervical myelopathy (11/16/17) * Iron deficiency (07/31/17) * Essential hypertension (07/14/14) * 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) * Mixed hyperlipidemia (01/24/12) * Recurrent major depressive disorder, in full remission * Panic disorder * Type 2 diabetes mellitus without complication DVT prophylaxis: * Subcutaneous heparin Code status: * Full code Disposition: * Currently full admission for suspected CVA or vertebrobasilar insufficiency diagnostic evaluation in process 35 minutes were involved in the evaluation of this patient including direct patient evaluation, physical examination, review of records, review evidence base medicine inquiry Exam Vital Signs (past 8 hours): - 05/08/25 01:07 05/08/25 02:28 05/08/25 02:33 Temperature 97.3 F L Pulse Rate 61 69 Respiratory Rate 18 Blood Pressure 207/65 H 185/75 H Pulse Oximetry 91 91 Oxygen Delivery Method Room Air Oxygen Flow Rate 0 0 05/08/25 04:16 05/08/25 06:14 05/08/25 06:20 Temperature 97.2 F L Pulse Rate 74 67 Respiratory Rate 16 Blood Pressure 163/74 H 188/84 H Pulse Oximetry 93 93 Oxygen Delivery Method Room Air Oxygen Flow Rate 0 0 05/08/25 06:20 05/08/25 07:51 Temperature Pulse Rate 67 73 Respiratory Rate Blood Pressure 188/84 H 146/66 H Pulse Oximetry Oxygen Delivery Method Oxygen Flow Rate Oxygen Delivery Method Room Air Oxygen Flow Rate 0 Objective Labs 05/08/25 06:54 05/08/25 06:50 Labs: Laboratory Results - last 24 hr 05/07/25 05/07/25 05/07/25 18:50 20:50 23:14 WBC 6.1 RBC 4.44 L Hgb 12.2 L Hct 37.8 L MCV 85.2 MCH 27.4 MCHC 32.2 RDW 16.1 H Plt Count 184 Neut % (Auto) 64.4 Lymph % (Auto) 23.6 L [place] % (Auto) 8.8 Eos % (Auto) 2.6 Baso % (Auto) 0.6 Neut # (Auto) 3900 Lymph # (Auto) 1400 [place] # (Auto) 500 Eos # (Auto) 200 Baso # (Auto) 0 PT 10.8 INR 1.0 APTT 30 Sodium 139 Potassium 5.0 Chloride 104 Carbon Dioxide 27 BUN 34 H Creatinine 1.10 Estimated GFR > 60 BUN/Creatinine Ratio 30.9 H Glucose 149 H POC Whole Bld Glucose 139 H Calcium 9.3 Magnesium 1.8 Total Bilirubin 0.6 AST 31 ALT 17 Alkaline Phosphatase 77 Total Creatine Kinase 157 Troponin I < 0.012 NT-Pro-B Natriuret Pep 176 H Total Protein 7.3 Albumin 4.3 Globulin 3.0 Albumin/Globulin Ratio 1.4 Lipase 295 U Opiates 300ng/mL cut Negative Ur Oxycodone Screen Negative Urine Methadone Screen Negative Ur Barbiturates Screen Negative U Tricyclic Antidepress Negative Ur Phencyclidine Scrn Negative Ur Amphetamines Screen Negative U Methamphetamines Scrn Negative Ur MDMA Scrn (Ecstasy) Negative U Benzodiazepines Scrn Negative Urine Cocaine Screen Negative U Marijuana (THC) Screen Negative Urine pH Normal Urine Specific [place] Normal Ur Creatinine Normal 05/08/25 05/08/25 05/08/25 06:50 06:54 07:48 WBC 8.9 RBC 4.73 Hgb 12.9 L Hct 39.9 L MCV 84.2 MCH 27.3 MCHC 32.4 RDW 16.0 H Plt Count TNP Neut % (Auto) 63.5 Lymph % (Auto) 24.1 L [place] % (Auto) 9.0 Eos % (Auto) 2.6 Baso % (Auto) 0.8 Neut # (Auto) 5700 Lymph # (Auto) 2100 [place] # (Auto) 800 Eos # (Auto) 200 Baso # (Auto) 100 PT INR APTT Sodium 139 Potassium 4.7 Chloride 103 Carbon Dioxide 27 BUN 28 H Creatinine 0.97 Estimated GFR > 60 BUN/Creatinine Ratio 28.9 H Glucose 141 H POC Whole Bld Glucose 161 H Calcium 9.7 Magnesium 1.8 Total Bilirubin AST ALT Alkaline Phosphatase Total Creatine Kinase Troponin I NT-Pro-B Natriuret Pep Total Protein Albumin Globulin Albumin/Globulin Ratio Lipase U Opiates 300ng/mL cut Ur Oxycodone Screen Urine Methadone Screen Ur Barbiturates Screen U Tricyclic Antidepress Ur Phencyclidine Scrn Ur Amphetamines Screen U Methamphetamines Scrn Ur MDMA Scrn (Ecstasy) U Benzodiazepines Scrn Urine Cocaine Screen U Marijuana (THC) Screen Urine pH Urine Specific [place] Ur Creatinine PFSH Medical History Androgen deprivation therapy Prostate cancer BPH loc w urin obs/LUTS Urinary retention BPH (benign prostatic hyperplasia) History of urinary retention Constipation Elevated PSA Claustrophobia Easy bruisability Undescended testicle of both sides Shortness of breath RLS (restless legs syndrome) Cervical stenosis of spinal canal Adopted Depression Anxiety Poor sleep Myelopathy Cervical myelopathy (11/16/17) Iron deficiency (07/31/17) Essential hypertension (07/14/14) 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
[2025-05-08] MEDS: CLOPIDOGREL 75 MG TABLET PO (08:27)
[2025-05-08] MEDS: PANTOPRAZOLE DR 40 MG TABLET PO ×2 (08:27→22:10)
[2025-05-08] MEDS: INSULIN LISPRO 100 UNIT/ML 3ML VIAL SUBCUT ×2 (08:27→12:03)
[2025-05-08] MEDS: TAMSULOSIN 0.4 MG CAPSULE PO ×2 (08:28→22:10)
[2025-05-08] MEDS: PREGABALIN 25 MG CAPSULE 100 MG PO (08:32)
[2025-05-08 08:53] LABS: RBC Morphology Normal Morphology
[2025-05-08] MEDS: HEPARIN 5,000 UNIT/ML VIAL 5000 UNIT SUBCUT ×2 (10:40→22:09)
--- NOTE | 2025-05-08 12:44 | OT.IP.EVAL ---
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) Prostate cancer Recurrent major depressive disorder, in full remission RLS (restless legs syndrome) Shortness of breath Type 2 diabetes mellitus without complication Undescended testicle of both sides Urinary retention Surgical History (Last Reviewed 05/07/25 @ 21:52 by Kiran Nelson MD) History of spinal fusion Occupational Therapy Inpatient Evaluation/Re-Eval M1 PT/OT-IP Prior Functional Status Start: 05/08/25 10:24 Freq: NEEDED Status: Active Protocol: Document 05/08/25 12:11 [facility] (Rec: 05/08/25 12:43 [facility] Desktop) Medical Review Prior Functional Status Communication I Mobility and Gait Use of quad cane or use of 4ww as needed. Activities of Daily Pt's assists pt with LB dressing needs. Living and IADL's Social History Household Members spouse Living Arrangements House Number of Floors ( Two Floors Floors) Number of Stairs To 3 steps with wide bilateral railings. Enter/Railing? Home Environment Standard Height Toilet,Walk in Shower Home Equipment Front Wheel Walker,Four Wheel Walker,Quad Cane,Straight Cane,Shower Seat without Backrest,Book Coverer,Grab Bars Near Toilet Additional Social Pt has a lift chair but it is broken. History Comment M2 OT-IP Current Condition Start: 05/08/25 10:24 Freq: Status: Active Protocol: Document 05/08/25 12:11 [facility] (Rec: 05/08/25 12:43 [facility] Desktop) Occupational Therapy Current Condition Current Condition Evaluation Date 05/08/25 Treatment Diagnosis Falls, uncontrollable HTN Diagnosis Onset Date 05/07/25 M3 OT- IP Subjective and Pain Start: 05/08/25 10:24 Freq: Status: Active Protocol: Document 05/08/25 12:11 [facility] (Rec: 05/08/25 12:43 [facility] Desktop) OT- Subjective Occupational Therapy Visit Type Type Initial Evaluation Visit Start Time 09:15 Visit Stop Time 09:40 Occupational Therapy Visit Comments Patient Comments Per hospitalist 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 Patient/Caregiver To go home. Goals OT Pain Assessment Pain When Pain Assessed At Rest Pain Present Pain Present Pain Reported Location lower back Intensity 6 Scale Used Numeric (0 - 10) M4 OT- IP ADL's Start: 05/08/25 10:24 Freq: Status: Active Protocol: Document 05/08/25 12:11 [facility] (Rec: 05/08/25 12:43 [facility] Desktop) OT [id number] Comments OT Self-Feeding Not at meal time. Comments OT ADL-Grooming Comments OT Grooming Comments Not performed. OT ADL-Oral Care Comments Oral Care Comments Not performed. OT ADL-Dressing Comments OT Dressing Comments Pt's assist with LB dressing needs. OT ADL-Toileting Comments OT Toileting Pt not having to go. Comments OT ADL-Bathing Comments OT Bathing Comments Not performed. M5 OT- IP IADL's Start: 05/08/25 10:24 Freq: Status: Active Protocol: Document 05/08/25 12:11 [facility] (Rec: 05/08/25 12:43 [facility] Desktop) OT-Instrumental Activities of Daily Living Meal Preparation Meal Preparation Caregiver Provides Assist Quality Reviewer Quality Reviewer Caregiver Provides Assist M6 OT- IP Functional Cognition Start: 05/08/25 10:24 Freq: Status: Active Protocol: Document 05/08/25 12:11 [facility] (Rec: 05/08/25 12:43 [facility] Desktop) Cognitive Factors Limiting Selfcare Function Cognitive Ability Level of Alertness Alert Patient Orientation Name,Age,Birthday,Month,Date,Year,Day of Week,Place, Situation Attention Span Capable of Focused Attention,Capable of Sustained Ability Attention Ability to Follow Able to Follow One Step Commands Commands Cognitive Comments Cognitive Assessment Pt able to follow directions for mobility needs. Comments OT- Vision and Hearing OT- Hearing Assessment OT- Hearing WFL,Use of Hearing Aids Assessment OT- Vision Assessment Visual Attentiveness WFL Occular Pursuits WFL Visual Convergence WFL Visual Martin WFL Vision Assessment Pt wears glasses for distance. Comments M7 OT- IP Mobility and Balance Start: 05/08/25 10:24 Freq: Status: Active Protocol: Document 05/08/25 12:11 [facility] (Rec: 05/08/25 12:43 [facility] Desktop) OT- Bed Mobility Assessment Supine to Sit Supine to Sit Assist Contact Guard Assistance,Bedrails Sit to Supine Sit to Supine Assist Standby Assistance OT-Transfer Assessment Sit to and From Stand Sit to and from Standby Assistance Stand Transfers Transfer Ability Contact Guard Assistance,Minimal Assistance Technique Transfer Destination Bed,Chair Transfer Technique Stand Step Pivot Devices Transfer Assistive Gait Belt,Front Wheeled Walker Devices Comments Mobility Comments Pt needing ROBYN without a device and very unsteady on his feet when trying to walk to the bed. Able to use FWW and mush more stable. BP supine 114/63, sitting 92/ 43, and after standing and seated 88/43. Pt just given Ativan though, nursing notified on pt unsteady on his feet prior to Ativan. Able to educated pt on log rolling and pillow positioning due to his low back pain . OT- Balance Assessment Sitting Balance and Reactions Static Sitting Good Balance Ability Dynamic Sitting Good Balance Ability Standing Balance and Reactions Static Standing Fair Balance Ability Dynamic Standing Poor Balance Ability M8 OT- IP Objective Assessments Start: 05/08/25 10:24 Freq: Status: Active Protocol: Document 05/08/25 12:11 [facility] (Rec: 05/08/25 12:43 [facility] Desktop) OT Gross Range of Motion Upper Extremity Range of Motion Assessment Within Functional Limits OT Strength Upper Extremity Strength Assessment Within Functional Limits OT- Coordination Assessment Upper Extremity Finger to Nose Test Bilateral UE Impaired Comments Coordination slightly off for both hands Comments M9 OT- IP Assessment and Plan Start: 05/08/25 10:24 Freq: Status: Active Protocol: Document 05/08/25 12:11 [facility] (Rec: 05/08/25 12:43 [facility] Desktop) OT Summary Assessment and Plan Potential Rehabilitation Good Potential Analytic Complexity Moderate at Evaluation Summary OT Impairments Pain,Balance Progress Towards Slow Progress due to Medical Issues,Slow Progress due Goals to Activity Tolerance Assessment Summary Pt MOD complexity and main barriers are decreased balance, unsteady on his feet, and has steps at home. Pt has a very supportive to assist his at home. Pt will benefit from use of FWW and assist from his if going home. Goals Self-Feeding Goal Independent Grooming Goal Independent Dressing Goal Moderate Assistance Toileting Goal Independent Bathing Goal Minimal Assistance Toilet Transfer Goal Standby Assistance Shower Transfer Goal Standby Assistance Days to Meet Goals 10 Frequency of Treatment Other frequency 5x/week Treatment Plan OT Treatment Plan ADL Training,Functional Mobility,Patient/Family Education,Discharge Planning Discharge Recommendations OT Discharge Home with 27/03 Assist Available,Outpatient PT vs home health. Recommendations Transportation Needs Private Vehicle at Discharge
--- NOTE | 2025-05-08 14:10 | PT.IIE ---
Current Diagnoses Essential (primary) hypertension (05/07/25) Other chest pain (05/07/25) Surgical History (Last Reviewed 05/07/25 @ 21:52 by Kiran Nelson MD) History of spinal fusion Medical History (Last Reviewed 05/07/25 @ 21:52 by Kiran Nelson MD) Adopted Androgen deprivation therapy Anxiety BPH (benign prostatic hyperplasia) BPH loc w urin obs/LUTS Cervical myelopathy (11/16/17) Cervical stenosis of spinal canal Claustrophobia Constipation Depression Easy bruisability Elevated PSA Essential hypertension (07/14/14) History of urinary retention Iron deficiency (07/31/17) Mixed hyperlipidemia (01/24/12) Myelopathy Panic disorder Poor sleep 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) Prostate cancer Recurrent major depressive disorder, in full remission RLS (restless legs syndrome) Shortness of breath Type 2 diabetes mellitus without complication Undescended testicle of both sides Urinary retention Physical Therapy Inpatient Evaluation/Re-Eval M1 PT/OT-IP Prior Functional Status Start: 05/08/25 10:24 Freq: NEEDED Status: Active Protocol: Document 05/08/25 14:15 [facility] (Rec: 05/08/25 14:34 [facility] Desktop) Medical Review Prior Functional Status Medical History Yes Reviewed Diet/Fluid Regular Consistency Communication WFL Mobility and Gait Use of quad cane or use of 4ww as needed. He has upright walkers that help manage his back pain. He walks independently but is limited by his back pain Activities of Daily Pt's assists pt with LB dressing needs. Living and IADL's Social History Household Members spouse Living Arrangements House Number of Floors ( Two Floors Floors) Number of Stairs To 3 steps with wide bilateral railings. Enter/Railing? Home Environment Standard Height Toilet,Walk in Shower Home Equipment Front Wheel Walker,Four Wheel Walker,Quad Cane,Straight Cane,Shower Seat without Backrest,Landscape Drafter,Grab Bars Near Toilet Employment Status Retired Additional Social Pt has a lift chair but it is broken. History Comment He has arm platforms on 4WW and he has an upright walker M2 PT-IP Current Condition Start: 05/08/25 12:08 Freq: NEEDED Status: Active Protocol: Document 05/08/25 14:15 [facility] (Rec: 05/08/25 14:34 [facility] Desktop) Physical Therapy Current Condition Current Condition Evaluation Date 05/08/25 Treatment Diagnosis CVA, fall, chest pain, impaired balance and gait Onset Date 05/07/25 M3 PT-IP Subjective Start: 05/08/25 12:08 Freq: NEEDED Status: Active Protocol: Document 05/08/25 14:15 [facility] (Rec: 05/08/25 14:34 [facility] Desktop) Subjective Physical Therapy Visit Type Type Initial Evaluation Visit Start Time 13:38 Visit Stop Time 14:10 Notes 32 min Number of LEHR LOADER Visits 0 Physical Therapy Visit Comments Patient Comments He reports no problems at this time. His reports his left arm was so weak he could not hold items at lunch. His notes more garbling of his speech. Patient Goals get better Therapy Pain Assessment Pain When Pain Assessed During Mobility Pain Present Pain Present Pain Reported Location lower back Intensity 5 Scale Used Numeric (0 - 10) Description Aching,Chronic,Tightness Pain Management Modification of Treatment Techniques M4 PT-IP Mobility and Gait Start: 05/08/25 12:08 Freq: NEEDED Status: Active Protocol: Document 05/08/25 14:15 [facility] (Rec: 05/08/25 14:34 [facility] Desktop) PT-Bed Mobility Assessment Supine to Sit Supine to Sit Standby Assistance,Bedrails Sit to Supine Sit to Supine Minimal Assistance,Bedrails Scooting Scooting to Edge of Minimal Assistance Bed PT-Transfer Assessment Sit to and From Stand Sit to and from Minimal Assistance,Use of Upper Extremities Stand Equipment Transfer Assistive Gait Belt,Front Wheeled Walker Device Comments Mobility Comments Pt losing balance posteriorly sitting edge of bed. He reports feeling dizzy when up. He was able to stand and bear weight on LE's with the FWW and CG/min assist for balance. He was too dizzy to transfer to a chair and he requested back to bed. Gait Assessment Gait Gait Assistance Minimum Assistance Required: Distance (Feet) 2 Assistive Devices Assistive Device Gait Belt,Front Wheeled Walker Factors Limiting Gait Function Factors Limiting Incoordination,Poor Balance Gait Function Comments Gait Comments Pt took 2 sidesteps at edge of bed to get back up towards pillow before going back to bed. Pt c/o dizziness in standing. Stair Climbing Assessment Comments Stair Climbing 2 steps to get back into house with bilateral rails Comments PT-Balance Assessment Sitting Balance and Reactions Static Sitting Fair Balance Ability Dynamic Sitting Poor Balance Ability Standing Balance and Reactions Static Standing Fair Balance Ability Dynamic Standing Fair Balance Ability Device Used FWW M5 PT-IP Objective Assessments Start: 05/08/25 12:08 Freq: NEEDED Status: Active Protocol: Document 05/08/25 14:15 [facility] (Rec: 05/08/25 14:34 [facility] Desktop) Orientation Orientation/Cognition Level of Alertness Alert Orientation Name,Year,Place Language Function Expressive Aphasia,Word Finding Difficulties Ability Safety Awareness Decreased Safety Awareness Memory Description Short Term Impaired Comments decreased awareness of his deficits Gross Range of Motion Upper Extremity ROM Assessment Within Functional Limits Lower Extremity ROM Assessment Within Functional Limits Strength Lower Extremity Strength Assessment Right Impaired Hip flex Right 2+/5, left 3+/5 with back pain Knee knee 4-/5 Ankle DF 4/5 Comments Strength Comments he had difficulty following instructions for MMT with right LE worse than left, perseverates on last task, unable to test UE's at this time Coordination Assessment Gross Coordination Gross Coordination Impaired Sensation Assessment Sensation Gross Sensation WNL Comments Sensation Comments he denies numbness/tingling Muscle Tone Muscle Tone WNL Yes M6 PT-IP Treatment Start: 05/08/25 12:08 Freq: NEEDED Status: Active Protocol: Document 05/08/25 14:15 [facility] (Rec: 05/08/25 14:34 [facility] Desktop) Physical Therapy Treatment Education Education Provided Safety M7 PT-IP Assessment and Plan Start: 05/08/25 12:08 Freq: NEEDED Status: Active Protocol: Document 05/08/25 14:15 [facility] (Rec: 05/08/25 14:34 [facility] Desktop) PT Summary Assessment and Plan Potential Rehabilitation Good Potential Status of Condition Unstable at Evaluation Summary Impairments Strength,Balance,Coordination,Cognition,Bed Mobility, Transfers,Gait,Activity Tolerance Assessment Summary Sherwin is alert resting in bed without complaints. Clinically he presents with impaired balance, dizziness , decreased coordination, decreased awareness of deficits, cognitive impairment and all mobility impaired. He had Ativan this AM before MRI and it is unclear if this is contributing to his increased symptoms this afternoon. His arrived at the end of this visit as she was able to verbalize the impairments she has noted today. Sherwin is very impaired at this time for his mobility. Recommend SNF rehab at this time to assist with his functional recovery. Will continue to monitor his symptoms for possible improvement if Ativan is complicating these evaluation findings. Goals Bed Mobility Goal Independent Transfer Goal Independent Gait Goal Independent,Front Wheel Walker Gait Distance 150 feet Other Goals Up/down 2 steps with rail and cane with CG assist Days to Meet Goals 7 Frequency of Treatment Frequency Of Once a Day Treatment Treatment Plan Physical Therapy Bed Mobility Training,Transfer Training,Gait Training, Treatment Plan Therapeutic Exercise,Balance Retraining,Post Op Education,Discharge Planning,Neuromuscular Re-ed, Coordination Retraining Precautions Other Precautions fall risk Wallenberg syndrome, vertebrobasilar insufficiency cognitive impairment Recommendations To Nursing Amount of Assist 1 Person Assist Needed Discharge Recommendations PT Discharge SNF Rehab Recommendations Transportation Needs Private Vehicle,Wheelchair/Cabulance at Discharge - PT assist 1
--- NOTE | 2025-05-08 15:13 | SLP.IPNOTE ---
ST received orders this care date at 13:54, however, pt triaged d/t ST OP caseload and additional ST IP orders. ST will attempt evaluation next care date as schedule permits.
--- NOTE | 2025-05-08 15:49 | CM.DANOTE ---
Initial DCP Assessment Note Pt is a 89yo male, resident of [place], presents with chest pain, fall and admitted INPT for stroke r/o- MRI neg for stroke. Therapy recs are conflictive at this time- suspect related to medication dosing. OT- Home w/assist and outpatient vs HH . PT- SNF PCP: Elton Dang Payer: Ezekiel WYNN Reviewed chart, pt discussed in multidisciplinary rounds this morning. KAIDEN 05/09. Patient lives indp with spouse who assists as needed. Patient's functional endurance is limited by back pain. Patient is likely to want to return home w/sp to assist with outpatient therapies vs HH. Social work team will plan to follow clinical course closely for eventual discharge coordination. TIN Hernandez Discharge Planning/Care Management CM Discharge Assessment Start: 05/07/25 22:33 Freq: Status: Active Protocol: Document 05/08/25 15:47 [facility]AM[facility] (Rec: 05/08/25 15:48 [facility] [id number]) Discharge Planning Assessment Assigned Discharge TIN Moreau Paperhanger Supervisor DPOA/Assigned Silvia Sparks, spouse Designee Name Contact Information [phone] Advance Directives? No Advance Directives No on File History Provided By Patient,Family Member,Medical Record Prior Living House Arrangements Household Members spouse Comment uses mostly a cane. has a 4ww and uses this as need be. Discharge Plan Home Transportation Family Arrangement Referrals Initiated Other Additional Comment Home w/HH vs outpatient therapies is likely.
[2025-05-08] MEDS: ATORVASTATIN 20 MG TABLET PO (22:09)
[2025-05-09] VITALS (17 sets, daily range): BP systolic 97–186; BP diastolic 55–74; PULSE 55–78; RESP 15–20; TEMP 35.6–36.4; O2SAT 91–96
[2025-05-09] MEDS: hydrALAZINE 20 MG/ML VIAL 10 MG IV (00:08)
--- NOTE | 2025-05-09 02:18 | PC.NURSE ---
Addendum entered by Jessica Mederos RN 05/09/25 03:36: BP rechecked with result of 140/59 and hr 76. Original Note: IV hydralazine given per order for BP 184/66, HR55. IV infiltrated as medication was being given. BP rechecked - 186/64, HR 55. Notified Dr. Woo and received order to given an additional dose of hydralazine. Medication given per order.
[2025-05-09] MEDS: ENALAPRILAT 2.5 MG/ 2 ML VIAL IV (06:11)
[2025-05-09 06:24] LABS: Add Manual Diff / Slide Review NO; Hematocrit 36.1 % (41-53); Hemoglobin 12.1 g/dL (13.5-17.5); Lymphocytes Absolute Auto 1500 /uL (1100-4500); Mean Corpuscular HGB Conc 33.5 % (30-36); Mean Corpuscular Hemoglobin 27.9 PG (26-34); Mean Corpuscular Volume 83.5 fL (80-100); Platelet Count 187 X10^3/uL (150-400)
[2025-05-09 06:46] LABS: Blood Urea Nitrogen 30 mg/dL (9-20); Calcium 9.5 mg/dL (8.4-10.2); Carbon Dioxide 26 mmol/L (22-32); Chloride 104 mmol/L (98-107); Estimated Glomerular Filt Rate > 60 mL/min (>60); Glucose 150 mg/dL (70-99); HEMOLYSIS 36 (0-50); Potassium 4.1 mmol/L (3.4-5.1); Sodium 137 mmol/L (137-145)
--- NOTE | 2025-05-09 10:00 | PT.IPTN ---
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) Essential (primary) hypertension (05/07/25) Paroxysmal atrial fibrillation (05/07/25) Other chest pain (05/07/25) Physical Therapy Treatment Note M2 PT-IP Current Condition Start: 05/08/25 12:08 Freq: NEEDED Status: Active Protocol: Document 05/08/25 14:15 [facility] (Rec: 05/08/25 14:34 [facility] Desktop) Physical Therapy Current Condition Current Condition Evaluation Date 05/08/25 Treatment Diagnosis CVA, fall, chest pain, impaired balance and gait Onset Date 05/07/25 M3 PT-IP Subjective Start: 05/08/25 12:08 Freq: NEEDED Status: Active Protocol: Document 05/09/25 10:00 AB (Rec: 05/09/25 13:32 AB [id number]) Subjective Physical Therapy Visit Type Type Treatment Note Visit Start Time 10:00 Visit Stop Time 10:30 Number of KILN TESTER Visits 0 Physical Therapy Visit Comments Patient Comments agreeable to do PT M4 PT-IP Mobility and Gait Start: 05/08/25 12:08 Freq: NEEDED Status: Active Protocol: Document 05/09/25 10:00 AB (Rec: 05/09/25 13:32 AB [id number]) PT-Transfer Assessment Sit to and From Stand Sit to and from Contact Guard Assistance Stand Equipment Transfer Assistive Gait Belt,Front Wheeled Walker,4 Wheeled Walker Device Orthotic/Prosthetic No Devices or Brace: Transfers Transfer Destination Chair Transfer Technique ambulated Transfer Ability Level of Assist Contact Guard Assistance,1 Person Assistance,Use of Upper Extremities Comments Mobility Comments pt in bed and agreeable to do PT. supine to sit SBA. able to sit on EOB SBA. no c/o dizziness/ lightheadedness. sit to stand CGA and ambulated in room using FWW CGA ~ 35 ft. Assessed ambulation using 4WW and completed ~ 30 ft CGA and cues. completed up/down step stool using side of FWW as rail for support CGA and cues. educated pt on stair climbing techniques. pt completed steps x 2 sets. pt agreed to stay up on the chair. positioned pt on the chair. call light and table placed within reach. Left pt with doctor and spouse. Gait Assessment Gait Gait Assistance Contact Guard Assist Required: Distance (Feet) 35 Able to Maintain Yes Weight Bearing Status During Gait Assistive Devices Assistive Device Gait Belt,Front Wheeled Walker,4 Wheeled Walker Orthotic/Prosthetic No Devices or Brace: Gait Deviations General Gait Pattern Decreased Stride Length,Decreased Feet Clearance Factors Limiting Gait Function Factors Limiting Decreased Activity Tolerance,Decreased Strength,Poor Gait Function Balance,Poor Safety Awareness Stair Climbing Assessment Evaluation Level of Assist On Contact Guard Assistance Stairs Devices Stair Climbing Left Railing Assistive Devices Technique/Endurance Stair Climbing Ascend and Descend Direction Stair Climbing Step to Step Technique Number of Steps 1 Climbed Stair Climbing Set # 2 Repetitions (reps) M5 PT-IP Objective Assessments Start: 05/08/25 12:08 Freq: NEEDED Status: Active Protocol: Document 05/08/25 14:15 [facility] (Rec: 05/08/25 14:34 [facility] Desktop) Orientation Orientation/Cognition Level of Alertness Alert Orientation Name,Year,Place Language Function Expressive Aphasia,Word Finding Difficulties Ability Safety Awareness Decreased Safety Awareness Memory Description Short Term Impaired Comments decreased awareness of his deficits Gross Range of Motion Upper Extremity ROM Assessment Within Functional Limits Lower Extremity ROM Assessment Within Functional Limits Strength Lower Extremity Strength Assessment Right Impaired Hip flex Right 2+/5, left 3+/5 with back pain Knee knee 4-/5 Ankle DF 4/5 Comments Strength Comments he had difficulty following instructions for MMT with right LE worse than left, perseverates on last task, unable to test UE's at this time Coordination Assessment Gross Coordination Gross Coordination Impaired Sensation Assessment Sensation Gross Sensation WNL Comments Sensation Comments he denies numbness/tingling Muscle Tone Muscle Tone WNL Yes M6 PT-IP Treatment Start: 05/08/25 12:08 Freq: NEEDED Status: Active Protocol: Document 05/09/25 10:00 AB (Rec: 05/09/25 13:32 AB [id number]) Physical Therapy Treatment Education Education Provided Safety M7 PT-IP Assessment and Plan Start: 05/08/25 12:08 Freq: NEEDED Status: Active Protocol: Document 05/09/25 10:00 AB (Rec: 05/09/25 13:32 AB [id number]) PT Summary Assessment and Plan Potential Rehabilitation Good Potential Summary Impairments Pain,ROM,Strength,Balance,Coordination,Sensation,Tone, Cognition,Bed Mobility,Transfers,Gait,Activity Tolerance Progress Towards Slow Progress due to Activity Tolerance Goals Assessment Summary pt improving with mobility. pt requiring CGA with mobility using 4WW but continues to present with decrease activity tolerance. pt plans to go home and spouse will be able to assist pt. pt will benefit from HHPT. Goals Bed Mobility Goal Independent Transfer Goal Independent Gait Goal Independent,Front Wheel Walker Gait Distance 150 feet Other Goals Up/down 2 steps with rail and cane with CG assist Days to Meet Goals 7 Frequency of Treatment Frequency Of Once a Day Treatment Treatment Plan Physical Therapy Bed Mobility Training,Transfer Training,Gait Training, Treatment Plan Therapeutic Exercise,Balance Retraining,Post Op Education,Discharge Planning,Neuromuscular Re-ed, Coordination Retraining Precautions Other Precautions fall risk Wallenberg syndrome, vertebrobasilar insufficiency cognitive impairment Recommendations To Nursing Amount of Assist 1 Person Assist Needed Discharge Recommendations PT Discharge Home with 27/03 Assist Available,Home Health Recommendations Transportation Needs Private Vehicle at Discharge - PT assist 1
--- NOTE | 2025-05-09 11:01 | PM.CN ---
History of Present Illness Consult details Chief complaint: chest pain, slurred speach, fell last night Narrative: 74-year-old male with multiple chronic conditions and comorbidities [place] and had 2 instances of fall while he was using his walker for ambulation. His brought him to home when she noticed that he had episodes of slurred speech and difficulty finding words. At that point she decided to bring him to the hospital for further evaluation. 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 His blood pressure goes into 1 80s to 200s when he is anxious. He also has a history of paroxysmal atrial fibrillation 1st episode documented in November of 2024. Anticoagulation was never initiated. According to his he had a stroke in 2012. He has never seen a aircraft mechanic structures and no documented history of any cardiac workup. CLINICAL QUESTION: ANTICOAGULATION. Patient reports no symptoms of chest pain shortness of breath orthopnea PND. No history of presyncope or syncope. He has had multiple falls but did not report loss of consciousness. He also reported intermittent headaches associated with anxiety. He denies any GI or complaints. No recent weight loss or weight gain. His neurological status remains compromised though has not worsened in recent past. According to his he has problems with his vision, muscle coordination able to perform daily task, difficulty getting up from chair to standing, frequent loss of control of the walker or a stick. Meds Home Medications and Allergies Home Medications ?Medication ?Instructions ?Recorded ?Confirmed ?Type lisinopril 20 mg tablet 20 mg PO QDAY #90 tabs 09/07/18 05/07/25 Rx duloxetine 30 mg capsule,delayed 30 mg PO BEDTIME 09/30/19 05/07/25 History release metformin 500 mg tablet 1,000 mg PO BIDCC 09/30/19 05/07/25 History (Glucophage) tamsulosin 0.4 mg capsule (Flomax) 0.4 mg PO BID 09/30/19 05/07/25 History albuterol sulfate 90 mcg/actuation 1 puff inhalation PRN PRN 12/03/19 05/07/25 Rx aerosol inhaler (Ventolin HFA) bronchospasm #18 inhalations atorvastatin 20 mg tablet (Lipitor) 20 mg PO BEDTIME 02/13/20 05/07/25 History pantoprazole 40 mg tablet,delayed 40 mg PO BID Gastritis with anemia 09/11/20 05/07/25 Rx release #60 tabs baclofen 20 mg tablet 20 mg PO BID 11/28/24 05/07/25 History pregabalin 100 mg capsule 100 mg PO DAILY 11/28/24 05/07/25 History clopidogrel 75 mg tablet (Plavix) 75 mg PO DAILY 11/29/24 05/07/25 History clonazepam 1 mg tablet 0.5 mg PO .hs 05/07/25 05/07/25 History Allergies Allergy/AdvReac Type Severity Reaction Status Date / Time No Known Drug Allergies Allergy Verified 05/07/25 18:46 Review of Systems Review of Systems ROS: Yes All systems reviewed with the patient and are negative except as otherwise documented Constitutional Constitutional: Reports frequent falls ENT Ears, Nose, Mouth, and Throat: Yes disequilibrium Cardiovascular Cardiovascular: Reports claudication Comments: Peripheral neuropathy Musculoskeletal Musculoskeletal: Reports numbness Neurologic Neurologic: Reports burning sensations, Reports frequent falls, Reports lack of coordination, Reports numbness, Reports other visual disturbances, Reports sensory deficit, Reports paresthesias and Reports disequilibrium Exam Vital Signs (past 8 hours): - 05/09/25 03:36 05/09/25 06:00 05/09/25 08:43 Temperature 96.3 F L 97.6 F Pulse Rate 76 63 Respiratory Rate 18 16 Blood Pressure 140/59 L 182/74 H Pulse Oximetry 96 96 96 Oxygen Delivery Method Room Air Oxygen Flow Rate 0 0 Oxygen Delivery Method Room Air Oxygen Flow Rate 0 Const General: cooperative and healthy appearing Nutritional Appearance: obese Limitations: physical limitations HENMT Head: normal to inspection Eyes Eyelids: eyelid abnormality Pupils: pupil size Chest Chest: normal inspection of the chest Resp Effort & Inspection: normal respiratory effort Auscultation: clear to auscultation bilaterally Cardio Palpation: normal PMI Rate: regular rate Rhythm: regular rhythm Pulses: normal peripheral pulses GI Other: Soft and non tender. Back/Spine/Pelvis Other: Limited ROM at neck and gait. Neuro General: patient oriented x3 and moves all extremities Speech: speech normal Gait: ataxic Coordination: rapid alternating movement UE normal Pupils: Pinpoint: right and left (anisocoria, Left ptosis Yumiko syndrome) Psych Appearance: grossly normal Objective Labs 05/09/25 06:14 05/09/25 06:14 Labs: Laboratory Results - last 24 hr 05/08/25 05/08/25 05/08/25 12:00 16:21 22:22 WBC RBC Hgb Hct MCV MCH MCHC RDW Plt Count Neut % (Auto) Lymph % (Auto) Woodruff % (Auto) Eos % (Auto) Baso % (Auto) Neut # (Auto) Lymph # (Auto) Woodruff # (Auto) Eos # (Auto) Baso # (Auto) Sodium Potassium Chloride Carbon Dioxide BUN Creatinine Estimated GFR BUN/Creatinine Ratio Glucose POC Whole Bld Glucose 167 H 121 H 149 H Calcium 05/09/25 06:14 WBC 5.8 RBC 4.33 L Hgb 12.1 L Hct 36.1 L MCV 83.5 MCH 27.9 MCHC 33.5 RDW 16.7 H Plt Count 187 Neut % (Auto) 61.6 Lymph % (Auto) 24.9 L Woodruff % (Auto) 9.0 Eos % (Auto) 3.7 Baso % (Auto) 0.8 Neut # (Auto) 3600 Lymph # (Auto) 1500 Woodruff # (Auto) 500 Eos # (Auto) 200 Baso # (Auto) 0 Sodium 137 Potassium 4.1 Chloride 104 Carbon Dioxide 26 BUN 30 H Creatinine 0.95 Estimated GFR > 60 BUN/Creatinine Ratio 31.6 H Glucose 150 H POC Whole Bld Glucose Calcium 9.5 [facility] Medical History (Updated 05/09/25 @ 11:22 by Noe Santamaria MD) Paroxysmal atrial fibrillation Lateral medullary syndrome Androgen deprivation therapy Prostate cancer BPH loc w urin obs/LUTS Urinary retention BPH (benign prostatic hyperplasia) History of urinary retention Constipation Elevated PSA Claustrophobia Easy bruisability Undescended testicle of both sides Shortness of breath RLS (restless legs syndrome) Cervical stenosis of spinal canal Adopted Depression Anxiety Poor sleep Myelopathy Cervical myelopathy (11/16/17) Iron deficiency (07/31/17) Essential hypertension (07/14/14) 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/hinduism: [employer] travel history: recurrent ([place] every 1-2 years.) leisure activities: reading and other (Gardening) Tobacco & Substance Use Smoking Status: Former smoker Tobacco: How many years used: 40 Smokeless tobacco user: other (Cigarettes) quit status: quit date established (2005) second hand exposure: No alcohol intake: current substance use type: does not use Additional Social History additional social history: Use stick and walker at home. Mostly assisted by his . Assessment & Plan Assessment and plan (1) Lateral medullary syndrome: Status: Acute (2) Paroxysmal atrial fibrillation: Status: Acute Assessment & Plan narrative: 74-year-old male with multiple chronic conditions and comorbidities was [place] local [place] and had 2 instances of fall while he was using his walker for ambulation. His brought him to home when she noticed that he had episodes of slurred speech and difficulty finding words. At that point she decided to bring him to the hospital for further evaluation. 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 CLINICAL QUESTION; Anticoagulation Patient has CHADS-VASc score of 5 which carries a risk of 7.2% per year for cardioembolic stroke. He has a history of atherosclerotic changes to the vertebral artery potentially cause of his medullary stroke. He has a documented history of atrial fibrillation in November of 2024 however no anticoagulation was initiated. 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 Patient clearly has high-risk history for recurrent stroke however also carries a significant fall risk as well. Risk benefit analysis was discussed in great detail with patient and his . I also had conversation with his hospitalist provider. Given his multiple coronary risk factors and factors for atherosclerosis he is a long-term candidate for antiplatelet therapy however given history of atrial fibrillation he carries a substantial stroke risk secondary to cardioembolic phenomena. I recommend him to continue with clopidogrel 75 mg daily. I will add Eliquis 2.5 mg twice daily. If he continues to have falls, patient is a candidate for Watchman device placement. I encouraged him to have a follow-up appointment with Cardiology. Copy to Dr. Prabhu Mariee And copy to [email or web address] at [phone] Time-Based Coding :: [TOTAL MINUTES 90 minutes spent with patient and on the chart (including review of chart, obtaining history, exam, reviewing outside data, placing orders, documenting exam and treatment plan, and counseling patient) on [DATE].
[2025-05-09] MEDS: PANTOPRAZOLE DR 40 MG TABLET PO ×2 (11:49→21:59)
[2025-05-09] MEDS: TAMSULOSIN 0.4 MG CAPSULE PO ×2 (11:49→21:59)
[2025-05-09] MEDS: BACLOFEN 10 MG TABLET 20 MG PO ×2 (11:52→21:59)
[2025-05-09] MEDS: PREGABALIN 25 MG CAPSULE 100 MG PO (11:53)
[2025-05-09] MEDS: HEPARIN 5,000 UNIT/ML VIAL 5000 UNIT SUBCUT (11:53)
[2025-05-09] MEDS: CLOPIDOGREL 75 MG TABLET PO (11:53)
[2025-05-09] MEDS: INSULIN LISPRO 100 UNIT/ML 3ML VIAL SUBCUT ×2 (11:55→22:05)
[2025-05-09] MEDS: SODIUM CHLORIDE 0.9% FLUSH 10 ML IV ×2 (11:55→21:59)
--- NOTE | 2025-05-09 13:54 | ST.IPCSEOM ---
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) Essential (primary) hypertension (05/07/25) Paroxysmal atrial fibrillation (05/07/25) Other chest pain (05/07/25) Past Medical History (Last Updated 05/09/25 @ 11:22 by Noe Santamaria MD) Adopted (Medical) Androgen deprivation therapy (Medical) Anxiety (Medical) BPH (benign prostatic hyperplasia) (Medical) BPH loc w urin obs/LUTS (Medical) Cervical myelopathy (Medical 11/16/17) Cervical stenosis of spinal canal (Medical) Claustrophobia (Medical) Constipation (Medical) Depression (Medical) Easy bruisability (Medical) Elevated PSA (Medical) Essential hypertension (Medical 07/14/14) History of urinary retention (Medical) Iron deficiency (Medical 07/31/17) Lateral medullary syndrome (Medical) Mixed hyperlipidemia (Medical 01/24/12) Myelopathy (Medical) Panic disorder (Medical) Paroxysmal atrial fibrillation (Medical) Poor sleep (Medical) Posterior inferior cerebellar artery syndrome (Medical 12/12/13) WALLENBERG SYNDROME Prostate cancer (Medical) Recurrent major depressive disorder, in full remission (Medical) RLS (restless legs syndrome) (Medical) Shortness of breath (Medical) Pt unsure if diagnosis of Asthma, on inhalers Type 2 diabetes mellitus without complication (Medical) Undescended testicle of both sides (Medical) Surgery age 6 Urinary retention (Medical) 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 Petersen Reason for Referral Dysphagia Setting Assessment Location Acute Care Visit Type Note Type Initial evaluation Patient Information Identification Type Name,Wristband History Per H&P: 74M with PMH of prostate cancer, BPH w/ LUTS, RLS, C-spines stenosis, depression/anxeity, BECKIE, HTN, hyperlipidemia, DM2, past CVA with chronic leg weakness presents with fall x2 yesterday from walker without head injury or syncope now with left lower chest tenderness, reproducible, not worse with inspiration, and since this afternoon, new dysphagia without new focal weakness. Initial labs and imaging were acutely unremarkable. He also had elevated bp initially 177 systolic and most recently 203. He has no new symptoms from what has been described. Blood pressure normally runs 120s systolic at home. Pt referred for ST evaluation d/t new dysphagia and expressive aphasia. Subjective Pt sitting in chair upon ST entering room. Pt Observations present. Pt Ox3. Pt and Pt report his swallow difficulties have been going on for 25+years d/t food and pills getting stuck in pouch in throat. Pt reports he cuts his pills in half at home d/t them getting stuck in his pouch as well as chicken getting stuck in there. Pt is most likely referring to a zenker's. Pt reports his expressive communication comes and goes from him being able to communicate in full sentences, to him asking questions about something that already happened yesterday. ST informally assessed language, with Pt able to follow directions and communicate in full sentences and answer questions with mild confusion. ST recommends outpatient speech therapy referral if expressive aphasia persists. Reported by Patient/Caregiver Pain/Discomfort No Other Symptoms Difficulty swallowing pills,Difficulty swallowing solids Current Diet Regular (IDDSI 7) Baseline Feeding Independent in self-feeding Method The IDDSI Framework Protocol: IDDSI.1 Objective Assessment Mental Status Alert,Responsive,Cooperative Oral Integrity WFL Dentition Upper dentures/partials,Lower dentures/partials Comment Oral motor exam revealed lingual and labial strength and ROM WFL. Food and Liquid Trials Position During Upright (90 degrees) Assessment Liquids Trialed Thin (IDDSI 0) Solid Trials Regular (IDDSI 7) Administration Type Straw,Self-feeding Oral Impairment Within functional limits Oral Phase Comments Pt consumed 1 baron cracker and half a peanut butter and jelly sandwich with about 4 oz of thin water via straw. He reports when food does feel stuck he utilizes water to clear it. Pt did not report any globus sensation during evaluation. For solids, he exhibited adequate bite size and rate, adequate mastication and bolus formation, minimal oral stasis, no overt s/s of aspiration such as coughing or choking. Pt required mild cues to alternate liquids/solids to assist with clearance d/t him reporting sometimes peanut butter sticks. For thin liquids Pt exhibited adequate suction with straw, good oral acceptance and containment, no overt s/s of aspiration. Pharyngeal Within functional limits Impairment Fatigue/Endurance Endurance WNL The IDDSI Framework Protocol: IDDSI.1 Findings Swallowing Function Within functional limits Severity of Swallow Within functional limits Impairment Prognosis Good Impact on Safety and No limitations Functioning Recommendations Instrumental No Assessment Swallowing Treatment No Recommended Solids Regular (IDDSI 7) Recommended Liquids Thin (IDDSI 0) Other ST recommends IDDSI 7 and IDDSI 0 with the below safe Recommendations swallowing strategies in place. Pt did not report any globus sensation or feeling of food stuck in throat during evaluation. He states he has been taking his medications whole while in the hospital without difficulties. Expressively, Pt able to communicate in full sentences and answer questions. ST recommends re- referral if change in status, or outpatient speech therapy if referral is swallowing/expressive aphasia becomes worse. Safety Precautions/ Remain upright (90 degrees) during all oral intake, Swallowing Upright position at least 30 minutes after meals,Small Recommendations bites and sips when eating,Slow rate; swallow between bites,Alternate liquids and solids Medication One at a Time Recommendations Education Patient/Caregiver Described results of evaluation,Patient expressed Education understanding of evaluation,Patient expressed understanding of safety precautions
--- NOTE | 2025-05-09 13:55 | P.PN_ITS ---
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 Patient presents with fall x2 yesterday from walker without head injury or syncope now with left lower chest tenderness, reproducible, not worse with inspiration. Since this afternoon, new dysphagia without new focal weakness. Initial labs and imaging were acutely unremarkable. He also had elevated bp initially 177 systolic and most recently 203. He has no new symptoms from what has been described. Blood pressure normally runs 120s systolic at home. Also has a past medical history of prostate cancer, BPH w/ LUTS, RLS, C-spines stenosis, depression/anxeity, BECKIE, HTN, hyperlipidemia, DM2, with chronic leg weakness Previous echocardiogram performed 11/29/2024: Interpretation Summary The study quality was technically difficult. The patient was in atrial fibrillation with heart rates between 61-85 bpm during the exam. Left ventricular wall thickness is mildly increased. Left ventricular ejection fraction is estimated to be 50 +/- 5%. Diastolic function could not be accurately assessed due to atrial fibrillation. The right ventricle is normal size. Right ventricular systolic function is mildly reduced. No obvious valvular abnormalities. Pulmonary artery pressures cannot be estimated because of the lack of a measurable TR jet velocity but the IVC suggests a CVP of around 15 mmHg. The ascending aorta is mildly enlarged. Findings in the emergency department notable on CTA of the head and neck for: Chronically diminutive and distally occluded left vertebral artery and circumferential atherosclerotic calcification involving both intracranial internal carotid arteries and right intracranial vertebral artery. Brain CT unrevealing for new infarct Clinical findings significant for dysphagia and word searching expressive aphasia Hospital course: 05/08: Patient receiving sedation for brain MRI this morning to evaluate for cerebrovascular accident. Dense expressive aphasia this morning MRI is negative 05/09: The patient has had waxing and waning left-sided weakness and aphasia, though notably this morning he is able to move both arms and legs without limitation, and his notes that his aphasia has resolved. Case reviewed in detail with Dr. Santamaria of consulting cardiology. Exam Vital Signs (past 8 hours): - 05/09/25 06:00 05/09/25 08:43 05/09/25 11:05 Temperature 97.6 F Pulse Rate 63 71 Respiratory Rate 16 Blood Pressure 182/74 H 115/60 Pulse Oximetry 96 96 Oxygen Delivery Method Room Air Oxygen Flow Rate 0 Oxygen Delivery Method Room Air Oxygen Flow Rate 0 Narrative Exam Narrative: Elderly male able to speak in short sentences HEENT unremarkable Neck no JVD Heart rate and rhythm regular Lungs clear Abdomen is nontender Neuro alert, oriented, left ptosis, anisochoria, upper and lower extremities symmetric strength, left arm discoordination with finger-nose testing Objective Imaging *: Radiologist's impression: Chest x-ray 05/07/2025: Bibasilar strandy opacities suggesting atelectasis or infiltrate. Brain CT 05/07/2025: No acute intracranial pathology. Head/ neck CTA 05/07/2025: No significant intracranial arterial abnormality is seen. No significant abnormality is seen within the arteries of the neck. Probably chronically diminutive and distally occluded left vertebral artery. Circumferential atherosclerotic calcification involving both intracranial internal carotid arteries and the right intracranial vertebral artery. Brain MRI 05/08/2025: 1. No acute process. No recent infarct. 2. Mild volume loss and small vessel ischemic disease. Labs 05/09/25 06:14 05/09/25 06:14 Labs: Laboratory Results - last 24 hr 05/08/25 05/08/25 05/09/25 16:21 22:22 06:14 WBC 5.8 RBC 4.33 L Hgb 12.1 L Hct 36.1 L MCV 83.5 MCH 27.9 MCHC 33.5 RDW 16.7 H Plt Count 187 Neut % (Auto) 61.6 Lymph % (Auto) 24.9 L Bleckley % (Auto) 9.0 Eos % (Auto) 3.7 Baso % (Auto) 0.8 Neut # (Auto) 3600 Lymph # (Auto) 1500 Bleckley # (Auto) 500 Eos # (Auto) 200 Baso # (Auto) 0 Sodium 137 Potassium 4.1 Chloride 104 Carbon Dioxide 26 BUN 30 H Creatinine 0.95 Estimated GFR > 60 BUN/Creatinine Ratio 31.6 H Glucose 150 H POC Whole Bld Glucose 121 H 149 H Calcium 9.5 05/09/25 05/09/25 08:09 11:45 WBC RBC Hgb Hct MCV MCH MCHC RDW Plt Count Neut % (Auto) Lymph % (Auto) Bleckley % (Auto) Eos % (Auto) Baso % (Auto) Neut # (Auto) Lymph # (Auto) Bleckley # (Auto) Eos # (Auto) Baso # (Auto) Sodium Potassium Chloride Carbon Dioxide BUN Creatinine Estimated GFR BUN/Creatinine Ratio Glucose POC Whole Bld Glucose 135 H 195 H Calcium PFSH Medical History (Updated 05/09/25 @ 11:22 by Noe Santamaria MD) Adopted Androgen deprivation therapy Anxiety BPH (benign prostatic hyperplasia) BPH loc w urin obs/LUTS Cervical myelopathy (11/16/17) Cervical stenosis of spinal canal Claustrophobia Constipation Depression Easy bruisability Elevated PSA Essential hypertension (07/14/14) History of urinary retention Iron deficiency (07/31/17) Lateral medullary syndrome Mixed hyperlipidemia (01/24/12) Myelopathy Panic disorder Paroxysmal atrial fibrillation Poor sleep 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/hindu: Hol[employer] travel history: recurrent ([place] every 1-2 years.) leisure activities: reading and other (Gardening) Smoking Status: Former smoker Tobacco: How many years used: 40 Smokeless tobacco user: other (Cigarettes) quit status: quit date established (2005) second hand exposure: No alcohol intake: current substance use type: does not use additional social history: Use stick and walker at home. Mostly assisted by his . Assessment & Plan Assessment & Plan narrative: Fall from walker with blunt chest wall injury without signs of fracture pneumothorax or hemothorax * No further evaluation indicated Dysphagia and expressive aphasia, possibly acute on chronic * Vascular study indicates significant intracranial cerebrovascular disease it may be culprit. Continue Clopidogrel 75mg daily * Patient has paroxysmal atrial fibrillation and may be at risk for embolic cerebrovascular events. Start Eliquis 2.5mg BID * This episode may represent TIA which would increase the priority for favoring anticoagulation over antiplatelet for secondary prevention of CVA * Had previous modified barium swallow study earlier this year Cerebrovascular disease as mentioned above * Continue antiplatelet therapy * Add Eliquis for atrial fibrillation prevention, [id number] score = 5 Previous stroke with medullary syndrome and strong correlation to finding of vertebral artery occlusion and atherosclerosis * Concern for recurrent ischemia and perhaps even medullary watershed phenomenon involving the anterior spinal arteries and vertebral arteries * We will discuss the above with Radiology Paroxysmal atrial fibrillation * Cardiology consultation appreciated * Start Eliquis 2.5mg BID on 05/09 * Assess fall risk given dual antiplatelet-DOAC therapy Chronic medical conditions: * Prostate cancer * BPH loc w urin obs/LUTS * Cervical stenosis of spinal canal * Cervical myelopathy (11/16/17) * Iron deficiency (07/31/17) * Essential hypertension (07/14/14) * 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
--- NOTE | 2025-05-09 14:06 | DI.US.S_ITS ---
PROCEDURE: US CAROTID DOPPLER BI INDICATIONS: stroke TECHNIQUE: Color and pulse Doppler interrogation was performed of both carotid systems, with image documentation and velocity measurements. COMPARISON: None. FINDINGS: Stenosis calculations are based on SRU (Society of Radiologists in Ultrasound) criteria. Right side: Brachial blood pressure: 135/56 mm Hg. Common carotid artery peak systolic velocity: 44 cm/sec. Internal carotid artery peak systolic velocity: 44 cm/sec. Internal carotid artery end diastolic velocity: 13 cm/sec. External carotid artery peak systolic velocity: 101 cm/sec. ICA/CCA peak systolic ratio: 1.1. Donis scale imaging description: No significant atherosclerotic plaques are seen. Percent internal carotid artery stenosis: No hemodynamically significant stenosis. Vertebral artery: Flow direction is antegrade. Left side: Brachial blood pressure: 144/61 mm Hg. Common carotid artery peak systolic velocity: 48 cm/sec. Internal carotid artery peak systolic velocity: 66 cm/sec. Internal carotid artery end diastolic velocity: 13 cm/sec. External carotid artery peak systolic velocity: 121 cm/sec. ICA/CCA peak systolic ratio: 1.4 Donis scale imaging description: Trace amount of plaques are seen in distal left common carotid artery.. Percent internal carotid artery stenosis: Less than 50%.. Vertebral artery: Flow direction is antegrade. IMPRESSION: 1. In the right carotid artery, there is no hemodynamically significant stenosis based on peak systolic velocity criteria. 2. In the left carotid artery, there is less than 50% stenosis based on peak systolic velocity criteria. 3. Antegrade vertebral arteries. Dictated by: Portillo Weathers M.D. on 05/09/2025 at 18:34 Approved by: Portillo Weathers M.D. on 05/09/2025 at 18:36
--- NOTE | 2025-05-09 14:44 | OT.IP.TRT ---
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) Essential (primary) hypertension (05/07/25) Paroxysmal atrial fibrillation (05/07/25) Other chest pain (05/07/25) Occupational Therapy Treatment Note M2 OT-IP Current Condition Start: 05/08/25 10:24 Freq: Status: Active Protocol: Document 05/08/25 12:11 [facility] (Rec: 05/08/25 12:43 [facility] Desktop) Occupational Therapy Current Condition Current Condition Evaluation Date 05/08/25 Treatment Diagnosis Falls, uncontrollable HTN Diagnosis Onset Date 05/07/25 M3 OT- IP Subjective and Pain Start: 05/08/25 10:24 Freq: Status: Active Protocol: Document 05/09/25 14:25 [facility] (Rec: 05/09/25 14:44 [facility] Desktop) OT- Subjective Occupational Therapy Visit Type Type Treatment Note Visit Start Time 14:04 Visit Stop Time 14:28 Occupational Therapy Visit Comments Patient Comments Pt agreed to do cognitive assessment. Pt's present in the room. Patient/Caregiver To go home. Goals OT Pain Assessment Pain When Pain Assessed During Mobility Pain Present Pain Present Denied Pain Location lower back Pain Behaviors Facial Grimacing M4 OT- IP ADL's Start: 05/08/25 10:24 Freq: Status: Active Protocol: Document 05/08/25 12:11 [facility] (Rec: 05/08/25 12:43 [facility] Desktop) OT [id number] Comments OT Self-Feeding Not at meal time. Comments OT ADL-Grooming Comments OT Grooming Comments Not performed. OT ADL-Oral Care Comments Oral Care Comments Not performed. OT ADL-Dressing Comments OT Dressing Comments Pt's assist with LB dressing needs. OT ADL-Toileting Comments OT Toileting Pt not having to go. Comments OT ADL-Bathing Comments OT Bathing Comments Not performed. M5 OT- IP IADL's Start: 05/08/25 10:24 Freq: Status: Active Protocol: Document 05/08/25 12:11 [facility] (Rec: 05/08/25 12:43 [facility] Desktop) OT-Instrumental Activities of Daily Living Meal Preparation Meal Preparation Caregiver Provides Assist Interior Design Consultant Interior Design Consultant Caregiver Provides Assist M6 OT- IP Functional Cognition Start: 05/08/25 10:24 Freq: Status: Active Protocol: Document 05/09/25 14:25 [facility] (Rec: 05/09/25 14:44 [facility] Desktop) Cognitive Factors Limiting Selfcare Function Cognitive Ability Level of Alertness Alert Attention Span Capable of Focused Attention,Capable of Sustained Ability Attention Ability to Follow Able to Follow One Step Commands with Increased Time, Commands Able to Follow One Step Commands with Repetition Memory Description Short Term Impaired,Working Impaired Cognitive Comments Cognitive Assessment Pt per not thinking well and agreed to do SLUMS Comments and Anza Making Part B. Pt able to states day of week, year and thought he was in [place], but when able to stay in [place] then able to realize that the state is [place]. Pt not able to immediately recall objects only able to get 3/5. Pt getting frustrated as not able to answer math questions or remember the detail at this time. Therefore stopped the assessment. IN addition pt not able to remember the directions for Anza Making Part B . M7 OT- IP Mobility and Balance Start: 05/08/25 10:24 Freq: Status: Active Protocol: Document 05/09/25 14:25 [facility] (Rec: 05/09/25 14:44 [facility] Desktop) OT-Transfer Assessment Sit to and From Stand Sit to and from Standby Assistance Stand Transfers Transfer Ability Contact Guard Assistance Technique Transfer Destination Chair Transfer Technique Stand Step Pivot Devices Transfer Assistive Gait Belt,Front Wheeled Walker Devices Comments Mobility Comments Pt SBA to stand and CGA with the FWW as unsteady on his feet. Pt needing cues to use the FWW and reach back with for the armrests before sitting down. Pt's BP supine 102/62. OT- Balance Assessment Sitting Balance and Reactions Static Sitting Good Balance Ability Dynamic Sitting Good Balance Ability Standing Balance and Reactions Static Standing Fair Balance Ability Dynamic Standing Fair Balance Ability M8 OT- IP Objective Assessments Start: 05/08/25 10:24 Freq: Status: Active Protocol: Document 05/08/25 12:11 [facility] (Rec: 05/08/25 12:43 [facility] Desktop) OT Gross Range of Motion Upper Extremity Range of Motion Assessment Within Functional Limits OT Strength Upper Extremity Strength Assessment Within Functional Limits OT- Coordination Assessment Upper Extremity Finger to Nose Test Bilateral UE Impaired Comments Coordination slightly off for both hands Comments M9 OT- IP Assessment and Plan Start: 05/08/25 10:24 Freq: Status: Active Protocol: Document 05/09/25 14:25 [facility] (Rec: 05/09/25 14:44 [facility] Desktop) OT Summary Assessment and Plan Potential Rehabilitation Good Potential Analytic Complexity Moderate at Evaluation Summary OT Impairments Pain,Balance,Functional Cognition,Functional Mobility, Dressing,Toileting,Bathing,Toilet Transfers,Shower Transfers,Activity Tolerance Progress Towards Slow Progress due to Pain,Slow Progress due to Medical Goals Issues,Slow Progress due to Activity Tolerance Assessment Summary Pt still somewhat unsteady on his feet and having difficulty with his STM, problem solving and not initially aware that he is in [facility]. Pt not able to repeat 5 objects after even after several attempts. Pt's feels pt is still far from his cognitive baseline. Pt to go home when medically stable my benefit from home health and 24/7 assist. Goals Self-Feeding Goal Independent Grooming Goal Independent Dressing Goal Moderate Assistance Toileting Goal Independent Bathing Goal Minimal Assistance Toilet Transfer Goal Standby Assistance Shower Transfer Goal Standby Assistance Days to Meet Goals 10 Frequency of Treatment Other frequency 5x/week Treatment Plan OT Treatment Plan ADL Training,Functional Mobility,Patient/Family Education,Discharge Planning Discharge Recommendations OT Discharge Home with 24/7 Assist Available,Home Health Recommendations Transportation Needs Private Vehicle at Discharge
[2025-05-09] MEDS: APIXABAN 5 MG TABLET 2.5 MG PO (15:09)
[2025-05-09] MEDS: ATORVASTATIN 20 MG TABLET PO (21:59)
[2025-05-10] VITALS (14 sets, daily range): BP systolic 84–146; BP diastolic 40–63; PULSE 60–74; RESP 16–18; TEMP 35.6–36.5; O2SAT 90–96
[2025-05-10] MEDS: INSULIN LISPRO 100 UNIT/ML 3ML VIAL SUBCUT ×3 (08:44→17:26)
[2025-05-10] MEDS: PREGABALIN 25 MG CAPSULE 100 MG PO (11:03)
[2025-05-10] MEDS: BACLOFEN 10 MG TABLET 20 MG PO ×2 (11:03→20:46)
[2025-05-10] MEDS: PANTOPRAZOLE DR 40 MG TABLET PO ×2 (11:03→20:46)
[2025-05-10] MEDS: TAMSULOSIN 0.4 MG CAPSULE PO ×2 (11:03→20:46)
[2025-05-10] MEDS: CLOPIDOGREL 75 MG TABLET PO (11:03)
[2025-05-10] MEDS: APIXABAN 5 MG TABLET 2.5 MG PO ×2 (11:04→20:47)
[2025-05-10] MEDS: ENALAPRIL 5 MG TABLET PO (11:04)
[2025-05-10] MEDS: SODIUM CHLORIDE 0.9% FLUSH 10 ML IV ×2 (11:05→20:47)
--- NOTE | 2025-05-10 11:19 | P.PN_ITS ---
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 Patient presents with fall x2 yesterday from walker without head injury or syncope now with left lower chest tenderness, reproducible, not worse with inspiration. Since this afternoon, new dysphagia without new focal weakness. Initial labs and imaging were acutely unremarkable. He also had elevated bp initially 177 systolic and most recently 203. He has no new symptoms from what has been described. Blood pressure normally runs 120s systolic at home. Also has a past medical history of prostate cancer, BPH w/ LUTS, RLS, C-spines stenosis, depression/anxeity, BECKIE, HTN, hyperlipidemia, DM2, with chronic leg weakness Previous echocardiogram performed 11/29/2024: Interpretation Summary The study quality was technically difficult. The patient was in atrial fibrillation with heart rates between 61-85 bpm during the exam. Left ventricular wall thickness is mildly increased. Left ventricular ejection fraction is estimated to be 50 +/- 5%. Diastolic function could not be accurately assessed due to atrial fibrillation. The right ventricle is normal size. Right ventricular systolic function is mildly reduced. No obvious valvular abnormalities. Pulmonary artery pressures cannot be estimated because of the lack of a measurable TR jet velocity but the IVC suggests a CVP of around 15 mmHg. The ascending aorta is mildly enlarged. Findings in the emergency department notable on CTA of the head and neck for: Chronically diminutive and distally occluded left vertebral artery and circumferential atherosclerotic calcification involving both intracranial internal carotid arteries and right intracranial vertebral artery. Brain CT unrevealing for new infarct Clinical findings significant for dysphagia and word searching expressive aphasia Hospital course: 05/08: Patient receiving sedation for brain MRI this morning to evaluate for cerebrovascular accident. Dense expressive aphasia this morning MRI is negative 05/09: The patient has had waxing and waning left-sided weakness and aphasia, though notably this morning he is able to move both arms and legs without limitation, and his notes that his aphasia has resolved. Case reviewed in detail with Dr. Santamaria of consulting cardiology. 05/10: The patient has persistent mild confusion. He can only recall 2/5 objects at 1 minute, and name 11 animals in 1 minute, frequently repeating the same animal. He is interested in returning home. Exam Vital Signs (past 8 hours): - 05/10/25 06:00 05/10/25 09:15 05/10/25 11:03 Temperature 96.5 F L Pulse Rate 74 67 Respiratory Rate 16 Blood Pressure 110/40 L 113/63 Pulse Oximetry 91 94 Oxygen Delivery Method Room Air Oxygen Flow Rate 0 05/10/25 11:04 Temperature Pulse Rate 67 Respiratory Rate Blood Pressure 113/63 Pulse Oximetry Oxygen Delivery Method Oxygen Flow Rate Oxygen Delivery Method Room Air Oxygen Flow Rate 0 Narrative Exam Narrative: Elderly male able to speak in short sentences HEENT unremarkable Neck no JVD Heart rate and rhythm regular Lungs clear Abdomen is nontender Neuro alert, oriented to person, day, place, left ptosis, anisochoria, upper and lower extremities symmetric strength, normal bilateral finger-nose testing Objective Imaging *: Radiologist's impression: Chest x-ray 05/07/2025: Bibasilar strandy opacities suggesting atelectasis or infiltrate. Brain CT 05/07/2025: No acute intracranial pathology. Head/ neck CTA 05/07/2025: No significant intracranial arterial abnormality is seen. No significant abnormality is seen within the arteries of the neck. Probably chronically diminutive and distally occluded left vertebral artery. Circumferential atherosclerotic calcification involving both intracranial internal carotid arteries and the right intracranial vertebral artery. Brain MRI 05/08/2025: 1. No acute process. No recent infarct. 2. Mild volume loss and small vessel ischemic disease. Carotid ultrasound 05/09/2025: 1. In the right carotid artery, there is no hemodynamically significant stenosis based on peak systolic velocity criteria. 2. In the left carotid artery, there is less than 50% stenosis based on peak systolic velocity criteria. 3. Antegrade vertebral arteries. Labs 05/09/25 06:14 05/09/25 06:14 Labs: Laboratory Results - last 24 hr 05/09/25 05/09/25 05/09/25 08:09 11:45 16:43 POC Whole Bld Glucose 135 H 195 H 106 H 05/09/25 05/10/25 20:53 07:21 POC Whole Bld Glucose 200 H 150 H [facility] Medical History Adopted Androgen deprivation therapy Anxiety BPH (benign prostatic hyperplasia) BPH loc w urin obs/LUTS Cervical myelopathy (11/16/17) Cervical stenosis of spinal canal Claustrophobia Constipation Depression Easy bruisability Elevated PSA Essential hypertension (07/14/14) History of urinary retention Iron deficiency (07/31/17) Lateral medullary syndrome Mixed hyperlipidemia (01/24/12) Myelopathy Panic disorder Paroxysmal atrial fibrillation Poor sleep 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/sabianism: Gnosticism travel history: recurrent ([place] every 1-2 years.) leisure activities: reading and other (Gardening) Smoking Status: Former smoker Tobacco: How many years used: 40 Smokeless tobacco user: other (Cigarettes) quit status: quit date established (2005) second hand exposure: No alcohol intake: current substance use type: does not use additional social history: Use stick and walker at home. Mostly assisted by his . Assessment & Plan Assessment & Plan narrative: Fall from walker with blunt chest wall injury without signs of fracture pneumothorax or hemothorax * No further evaluation indicated Dysphagia and expressive aphasia, mild cognitive impairment, possibly acute on chronic * Vascular study indicates significant intracranial cerebrovascular disease it may be culprit. Continue Clopidogrel 75mg daily * Patient has paroxysmal atrial fibrillation and may be at risk for embolic cerebrovascular events. Continue Eliquis 2.5mg BID started 05/09/2025 * Dual antiplatelet and DOAC anticoagulation warrants assessment of fall and bleeding risk * Had previous modified barium swallow study earlier this year Cerebrovascular disease as mentioned above * Continue antiplatelet therapy * Continue Eliquis for atrial fibrillation stroke prevention, [id number] score = 5 Previous stroke with medullary syndrome and strong correlation to finding of vertebral artery occlusion and atherosclerosis * Concern for recurrent ischemia and perhaps even medullary watershed phenomenon involving the anterior spinal arteries and vertebral arteries Paroxysmal atrial fibrillation * Cardiology consultation appreciated * Continue Eliquis 2.5mg BID on 05/09 * Assess fall risk given dual antiplatelet-DOAC therapy Chronic medical conditions: * Prostate cancer * BPH loc w urin obs/LUTS * Cervical stenosis of spinal canal * Cervical myelopathy (11/16/17) * Iron deficiency (07/31/17) * Essential hypertension (07/14/14) * 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
--- NOTE | 2025-05-10 14:00 | PT.IPTN ---
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) Essential (primary) hypertension (05/07/25) Paroxysmal atrial fibrillation (05/07/25) Other chest pain (05/07/25) Physical Therapy Treatment Note M2 PT-IP Current Condition Start: 05/08/25 12:08 Freq: NEEDED Status: Active Protocol: Document 05/08/25 14:15 DLM (Rec: 05/08/25 14:34 DLM Desktop) Physical Therapy Current Condition Current Condition Evaluation Date 05/08/25 Treatment Diagnosis CVA, fall, chest pain, impaired balance and gait Onset Date 05/07/25 M3 PT-IP Subjective Start: 05/08/25 12:08 Freq: NEEDED Status: Active Protocol: Document 05/10/25 14:00 AB (Rec: 05/10/25 17:30 AB Desktop) Subjective Physical Therapy Visit Type Type Treatment Note Visit Start Time 14:00 Visit Stop Time 14:25 Number of DELIVERY NURSE Visits 0 Physical Therapy Visit Comments Patient Comments agreeable to do PT M4 PT-IP Mobility and Gait Start: 05/08/25 12:08 Freq: NEEDED Status: Active Protocol: Document 05/10/25 14:00 AB (Rec: 05/10/25 17:30 AB Desktop) PT-Bed Mobility Assessment Supine to Sit Supine to Sit Standby Assistance PT-Transfer Assessment Sit to and From Stand Sit to and from Contact Guard Assistance,1 Person Assistance,Use of Stand Upper Extremities Equipment Transfer Assistive Gait Belt,4 Wheeled Walker Device Orthotic/Prosthetic No Devices or Brace: Transfers Transfer Destination Chair Transfer Technique ambulated Transfer Ability Level of Assist Contact Guard Assistance,1 Person Assistance,Use of Upper Extremities Comments Mobility Comments pt in bed and spouse in room. pt agreed to do PT. completed supine to sit SBA. spouse stated that she will be able to assist pt at home. spouse was able to put safety belt on pt. pt completed sit to stand CGA and ambulated in the hallway using 4WW CGA to min A and cues. spouse was assisting pt. pt with decrease safety awareness and impulsive requiring frequent cues to slow down and body position closer to 4WW. pt completed up/down steps using B rails ascending CGA and holding on the L rail with B hands descending min A . spouse stated that she will be able to assist pt. pt ambulated back to his room using 4WW CGA to min A and cues. pt sat on the chair. positioned pt on the chair. call light and table placed within reach. pt wants HHPT but spouse wants outpt PT and stated that she can drive pt to his appointments and will assist pt. informed casework supervisor. Gait Assessment Gait Gait Assistance Contact Guard Assist,Minimum Assistance Required: Distance (Feet) 125 Able to Maintain Yes Weight Bearing Status During Gait Assistive Devices Assistive Device Gait Belt,4 Wheeled Walker Orthotic/Prosthetic No Devices or Brace: Gait Deviations General Gait Pattern Ataxic,Decreased Stride Length,Decreased Feet Clearance ,Step-to Gait Factors Limiting Gait Function Factors Limiting Decreased Activity Tolerance,Decreased Strength, Gait Function Difficulty Following Directions,Incoordination,Pain, Poor Balance,Poor Safety Awareness Stair Climbing Assessment Evaluation Level of Assist On Contact Guard Assistance,Minimal Assistance Stairs Devices Stair Climbing Left Railing,Right Railing Assistive Devices Technique/Endurance Stair Climbing Ascend and Descend Direction Number of Steps 3 Climbed Stair Climbing Set # 1 Repetitions (reps) M5 PT-IP Objective Assessments Start: 05/08/25 12:08 Freq: NEEDED Status: Active Protocol: Document 05/08/25 14:15 DLM (Rec: 05/08/25 14:34 DLM Desktop) Orientation Orientation/Cognition Level of Alertness Alert Orientation Name,Year,Place Language Function Expressive Aphasia,Word Finding Difficulties Ability Safety Awareness Decreased Safety Awareness Memory Description Short Term Impaired Comments decreased awareness of his deficits Gross Range of Motion Upper Extremity ROM Assessment Within Functional Limits Lower Extremity ROM Assessment Within Functional Limits Strength Lower Extremity Strength Assessment Right Impaired Hip flex Right 2+/5, left 3+/5 with back pain Knee knee 4-/5 Ankle DF 4/5 Comments Strength Comments he had difficulty following instructions for MMT with right LE worse than left, perseverates on last task, unable to test UE's at this time Coordination Assessment Gross Coordination Gross Coordination Impaired Sensation Assessment Sensation Gross Sensation WNL Comments Sensation Comments he denies numbness/tingling Muscle Tone Muscle Tone WNL Yes M6 PT-IP Treatment Start: 05/08/25 12:08 Freq: NEEDED Status: Active Protocol: Document 05/10/25 14:00 AB (Rec: 05/10/25 17:30 AB Desktop) Physical Therapy Treatment Education Education Provided Safety M7 PT-IP Assessment and Plan Start: 05/08/25 12:08 Freq: NEEDED Status: Active Protocol: Document 05/10/25 14:00 AB (Rec: 05/10/25 17:30 AB Desktop) PT Summary Assessment and Plan Potential Rehabilitation Fair Potential Summary Impairments Pain,ROM,Strength,Balance,Coordination,Sensation,Tone, Cognition,Bed Mobility,Transfers,Gait,Activity Tolerance Progress Towards Slow Progress due to Medical Issues,Slow Progress - Goals Other Assessment Summary pt requiring CGA to min A with mobility using 4WW and plans to go home with spouse to assist. pt is impulsive and has decrease safety awareness and will need 24/7 assist and spouse stated that she can assist pt. caregiver training conducted and spouse was able to assist pt. spouse requested outpt PT for pt. Goals Bed Mobility Goal Independent Transfer Goal Independent Gait Goal Independent,Front Wheel Walker Gait Distance 150 feet Other Goals Up/down 2 steps with rail and cane with CG assist Days to Meet Goals 7 Frequency of Treatment Frequency Of Once a Day Treatment Treatment Plan Physical Therapy Bed Mobility Training,Transfer Training,Gait Training, Treatment Plan Therapeutic Exercise,Balance Retraining,Post Op Education,Discharge Planning,Neuromuscular Re-ed, Coordination Retraining Precautions Other Precautions fall risk Wallenberg syndrome, vertebrobasilar insufficiency cognitive impairment Recommendations To Nursing Amount of Assist 1 Person Assist Needed Discharge Recommendations PT Discharge Home with 24/7 Assist Available,Home Health Recommendations Transportation Needs Private Vehicle at Discharge - PT assist 1
--- NOTE | 2025-05-10 14:49 | CM.DPNOTE ---
DCP Cont According to PT; recommendation is for home w/assist, HH vs outpatient. Spouse prefers to take patient to outpatient therapy. Plan: Discharge home anticipated. With spouse to assist, outpatient therapy recommended- Cleared by PT for this plan. No needs from this SW team identified. Following closely in case any SW needs arise. DAYAMI
[2025-05-10] MEDS: ATORVASTATIN 20 MG TABLET PO (20:46)
[2025-05-11] VITALS (11 sets, daily range): BP systolic 87–156; BP diastolic 39–72; PULSE 60–92; RESP 16–19; TEMP 35.7–36.9; O2SAT 92–96
[2025-05-11] MEDS: PREGABALIN 25 MG CAPSULE 100 MG PO (08:19)
[2025-05-11] MEDS: CLOPIDOGREL 75 MG TABLET PO (08:19)
[2025-05-11] MEDS: PANTOPRAZOLE DR 40 MG TABLET PO ×2 (08:20→20:48)
[2025-05-11] MEDS: BACLOFEN 10 MG TABLET 20 MG PO ×2 (08:20→20:52)
[2025-05-11] MEDS: APIXABAN 5 MG TABLET 2.5 MG PO ×2 (08:20→20:49)
[2025-05-11] MEDS: TAMSULOSIN 0.4 MG CAPSULE PO ×2 (08:21→20:49)
[2025-05-11] MEDS: INSULIN LISPRO 100 UNIT/ML 3ML VIAL SUBCUT ×3 (08:22→17:13)
[2025-05-11] MEDS: SODIUM CHLORIDE 0.9% FLUSH 10 ML IV ×2 (08:25→20:50)
--- NOTE | 2025-05-11 09:12 | PT-IP ANOTE ---
Upon entering room, pt was in recliner, was in the room. Pt noted feeling a little fatigued/lightheaded. BP measured at 96/38. Waited two minutes and remeasured, BP was 89/37. Hold therapy at this time, RN was informed. Will attempt again later today.
--- NOTE | 2025-05-11 09:22 | P.PN_ITS ---
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 Patient presents with fall x2 yesterday from walker without head injury or syncope now with left lower chest tenderness, reproducible, not worse with inspiration. Since this afternoon, new dysphagia without new focal weakness. Initial labs and imaging were acutely unremarkable. He also had elevated bp initially 177 systolic and most recently 203. He has no new symptoms from what has been described. Blood pressure normally runs 120s systolic at home. Also has a past medical history of prostate cancer, BPH w/ LUTS, RLS, C-spines stenosis, depression/anxeity, BECKIE, HTN, hyperlipidemia, DM2, with chronic leg weakness Previous echocardiogram performed 11/29/2024: Interpretation Summary The study quality was technically difficult. The patient was in atrial fibrillation with heart rates between 61-85 bpm during the exam. Left ventricular wall thickness is mildly increased. Left ventricular ejection fraction is estimated to be 50 +/- 5%. Diastolic function could not be accurately assessed due to atrial fibrillation. The right ventricle is normal size. Right ventricular systolic function is mildly reduced. No obvious valvular abnormalities. Pulmonary artery pressures cannot be estimated because of the lack of a measurable TR jet velocity but the IVC suggests a CVP of around 15 mmHg. The ascending aorta is mildly enlarged. Findings in the emergency department notable on CTA of the head and neck for: Chronically diminutive and distally occluded left vertebral artery and circumferential atherosclerotic calcification involving both intracranial internal carotid arteries and right intracranial vertebral artery. Brain CT unrevealing for new infarct Clinical findings significant for dysphagia and word searching expressive aphasia Hospital course: 05/08: Patient receiving sedation for brain MRI this morning to evaluate for cerebrovascular accident. Dense expressive aphasia this morning MRI is negative 05/09: The patient has had waxing and waning left-sided weakness and aphasia, though notably this morning he is able to move both arms and legs without limitation, and his notes that his aphasia has resolved. Case reviewed in detail with Dr. Santamaria of consulting cardiology. 05/10: The patient has persistent mild confusion. He can only recall 2/5 objects at 1 minute, and name 11 animals in 1 minute, frequently repeating the same animal. He is interested in returning home. 05/11: The patient experienced transient hypotension yesterday in the 80s. His enalapril was discontinued. He continues on lisinopril with blood pressure in the 129 over 54 to 156/67 range this morning. He denies chest pain, breathing problems, or new stroke symptoms. His Angel notes that his recall and mental status appears at baseline, with mild forgetfulness and cognitive impairment noted. Exam Vital Signs (past 8 hours): - 05/11/25 02:00 05/11/25 05:14 05/11/25 06:00 Temperature 96.3 F L Pulse Rate 64 Respiratory Rate 19 Blood Pressure 129/54 L Pulse Oximetry 92 92 92 Oxygen Delivery Method Room Air Room Air Oxygen Flow Rate 0 05/11/25 07:23 Temperature 96.9 F L Pulse Rate 63 Respiratory Rate 16 Blood Pressure 156/67 H Pulse Oximetry 94 Oxygen Delivery Method Oxygen Flow Rate 0 Oxygen Delivery Method Room Air Oxygen Flow Rate 0 Narrative Exam Narrative: Elderly male able to speak in short sentences HEENT unremarkable Neck no JVD Heart rate and rhythm regular Lungs clear Abdomen is nontender Neuro alert, oriented to person, day, place, left ptosis, anisochoria, upper and lower extremities symmetric strength, normal bilateral finger-nose testing Objective Imaging *: Radiologist's impression: Chest x-ray 05/07/2025: Bibasilar strandy opacities suggesting atelectasis or infiltrate. Brain CT 05/07/2025: No acute intracranial pathology. Head/ neck CTA 05/07/2025: No significant intracranial arterial abnormality is seen. No significant abnormality is seen within the arteries of the neck. Probably chronically diminutive and distally occluded left vertebral artery. Circumferential atherosclerotic calcification involving both intracranial internal carotid arteries and the right intracranial vertebral artery. Brain MRI 05/08/2025: 1. No acute process. No recent infarct. 2. Mild volume loss and small vessel ischemic disease. Carotid ultrasound 05/09/2025: 1. In the right carotid artery, there is no hemodynamically significant stenosis based on peak systolic velocity criteria. 2. In the left carotid artery, there is less than 50% stenosis based on peak systolic velocity criteria. 3. Antegrade vertebral arteries. Labs 05/09/25 06:14 05/09/25 06:14 Labs: Laboratory Results - last 24 hr 05/10/25 05/10/25 05/10/25 11:34 16:59 20:40 POC Whole Bld Glucose 172 H 141 H 150 H 05/11/25 07:21 POC Whole Bld Glucose 147 H PFSH Medical History Adopted Androgen deprivation therapy Anxiety BPH (benign prostatic hyperplasia) BPH loc w urin obs/LUTS Cervical myelopathy (11/16/17) Cervical stenosis of spinal canal Claustrophobia Constipation Depression Easy bruisability Elevated PSA Essential hypertension (07/14/14) History of urinary retention Iron deficiency (07/31/17) Lateral medullary syndrome Mixed hyperlipidemia (01/24/12) Myelopathy Panic disorder Paroxysmal atrial fibrillation Poor sleep 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: [employer] travel history: recurrent ([place] every 1-2 years.) leisure activities: reading and other (Gardening) Smoking Status: Former smoker Tobacco: How many years used: 40 Smokeless tobacco user: other (Cigarettes) quit status: quit date established (2005) second hand exposure: No alcohol intake: current substance use type: does not use additional social history: Use stick and walker at home. Mostly assisted by his . Assessment & Plan Assessment & Plan narrative: Fall from walker with blunt chest wall injury without signs of fracture pneumothorax or hemothorax * No further evaluation indicated Dysphagia and expressive aphasia, mild cognitive impairment, possibly acute on chronic * Vascular study indicates significant intracranial cerebrovascular disease it may be culprit. Continue Clopidogrel 75mg daily * Patient has paroxysmal atrial fibrillation and may be at risk for embolic cerebrovascular events. Continue Eliquis 2.5mg BID started 05/09/2025 * Dual antiplatelet and DOAC anticoagulation warrants assessment of fall and bleeding risk * Had previous modified barium swallow study earlier this year * Appears to be at his baseline at this point. 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 * Continue Eliquis 2.5mg BID for atrial fibrillation stroke prevention, [id number] score = 5 * Risk of bleeding discussed with patient and his who expressed understanding, recognizing the high risk of recurrent stroke and TIA in this patient with multiple risk factors. Previous stroke with medullary syndrome and strong correlation to finding of vertebral artery occlusion and atherosclerosis * Concern for recurrent ischemia and perhaps even medullary watershed phenomenon involving the anterior spinal arteries and vertebral arteries Paroxysmal atrial fibrillation * Cardiology consultation appreciated * Continue Eliquis 2.5mg BID on 05/09 * Assess fall risk given dual antiplatelet-DOAC therapy Hypertension. * Initially hypertensive with blood pressures up to 208/90 on 05/07, appears to have been overtreated on 05/11. Enalapril discontinued. * Monitor on his usual home dose of lisinopril 20 mg daily. Hyperlipidemia. * Continue [id number] mg daily, usual home dosing. 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 Likely home tomorrow with his if stable in the next 24 hours. PROFEE [employer] Document charge(s): No Charge Codes Subsequent inpatient/observation care: [id number]
[2025-05-11] MEDS: ACETAMINOPHEN 325 MG TABLET 650 MG PO (14:20)
--- NOTE | 2025-05-11 19:38 | PC.NURSE ---
Patient given a.m. medications with scheduled antihypertensive lisnopril 20 mg po for initally elevated SBP 150's this a.m. Upon attempting to sit up with PT, noted patient to be hypotensive and PT deferred due to patient being orthostatic. Patient's BP continued to read low 80's-low 100's /40's this afternoon. MD notified and per orders hold antihypertensive meds, continue to monitor and encourage po fluid intake. Patient continues to read low this evening and MD aware. Patient continues to deny dizziness or be symptomatic. Continous monitoring.
[2025-05-11] MEDS: ATORVASTATIN 20 MG TABLET PO (20:48)
[2025-05-12] VITALS (8 sets, daily range): BP systolic 118–178; BP diastolic 36–67; PULSE 63–92; RESP 16–20; TEMP 36–36.6; O2SAT 91–97
--- NOTE | 2025-05-12 06:58 | PC.NURSE ---
Resuming care, received report from Marisol Tolliver RN.
[2025-05-12] MEDS: CLOPIDOGREL 75 MG TABLET PO (08:24)
[2025-05-12] MEDS: PANTOPRAZOLE DR 40 MG TABLET PO ×2 (08:24→20:11)
[2025-05-12] MEDS: BACLOFEN 10 MG TABLET 20 MG PO ×2 (08:24→20:11)
[2025-05-12] MEDS: INSULIN LISPRO 100 UNIT/ML 3ML VIAL SUBCUT ×2 (08:24→12:17)
[2025-05-12] MEDS: TAMSULOSIN 0.4 MG CAPSULE PO ×2 (08:24→20:11)
[2025-05-12] MEDS: APIXABAN 5 MG TABLET 2.5 MG PO ×2 (08:25→20:11)
[2025-05-12] MEDS: PREGABALIN 25 MG CAPSULE 100 MG PO (08:27)
--- NOTE | 2025-05-12 09:31 | PT.IPTN ---
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) Essential (primary) hypertension (05/07/25) Paroxysmal atrial fibrillation (05/07/25) Other chest pain (05/07/25) Physical Therapy Treatment Note M2 PT-IP Current Condition Start: 05/08/25 12:08 Freq: NEEDED Status: Active Protocol: Document 05/12/25 09:10 SP (Rec: 05/12/25 12:28 SP Laptop) Physical Therapy Current Condition Current Condition Evaluation Date 05/08/25 Treatment Diagnosis CVA, fall, chest pain, impaired balance and gait Onset Date 05/07/25 M3 PT-IP Subjective Start: 05/08/25 12:08 Freq: NEEDED Status: Active Protocol: Document 05/12/25 09:10 SP (Rec: 05/12/25 12:28 SP Laptop) Subjective Physical Therapy Visit Type Type Treatment Note Visit Start Time 09:10 Visit Stop Time 09:31 Notes SPTA Ledy observed tx while under direct supervision of ECONOMIC DEVELOPMENT DIRECTOR Dolly throughout tx, in room observed tx and gave feedback as needed, will be able to help pt 24 /7 needed at DC. Number of ECONOMIC DEVELOPMENT DIRECTOR Visits 1 Physical Therapy Visit Comments Patient Comments Pt agreeable to working ECONOMIC DEVELOPMENT DIRECTOR. Patient Goals return home with to assist him. M4 PT-IP Mobility and Gait Start: 05/08/25 12:08 Freq: NEEDED Status: Active Protocol: Document 05/12/25 09:10 SP (Rec: 05/12/25 12:28 SP Laptop) PT-Transfer Assessment Sit to and From Stand Sit to and from Contact Guard Assistance,1 Person Assistance,Use of Stand Upper Extremities Equipment Transfer Assistive Gait Belt,Front Wheeled Walker Device Orthotic/Prosthetic No Devices or Brace: Transfers Transfer Destination Chair Transfer Technique ambulated with FWW Transfer Ability Level of Assist Contact Guard Assistance,Minimal Assistance,1 Person Assistance,Use of Upper Extremities Comments Mobility Comments Pt CGA STS from chair, gait around room CG-5%A with FWW support at trunk gait belt as needed due to slight trunk sways during pivot turns. Pt completed 2 laps around room approx 60 ft in room, did not progress outside room due to concerned vitals taken seated pre mobillity BP 108/43 HR 79 SaO2 90s on RA, standing with FWW 122/35 HR SaO2 94% on RA, non symptomatic so progressed gait in room vitals post mobility BP in sitting 94/55 HR 77 with report of slight 1% dizziness . Pt was up in chair, legs elevated with call light, chair alarm donned and all needs in reach before left, in room. Gait Assessment Gait Gait Assistance Contact Guard Assist,Minimum Assistance Required: Distance (Feet) 60 Able to Maintain Yes Weight Bearing Status During Gait Assistive Devices Assistive Device Gait Belt,Front Wheeled Walker Orthotic/Prosthetic No Devices or Brace: Gait Deviations General Gait Pattern Antalgic,Ataxic,Decreased Stride Length,Decreased Feet Clearance,Step-to Gait Factors Limiting Gait Function Factors Limiting Decreased Activity Tolerance,Decreased Strength,Pain, Gait Function Poor Balance,Poor Safety Awareness Comments Gait Comments step to patterning, slight off midline during pivot turns, cues for proximity to FWW and back up fully to chair, reaching back to slow to sit in chair. PT-Balance Assessment Sitting Balance and Reactions Static Sitting Normal Balance Ability Dynamic Sitting Good Balance Ability Standing Balance and Reactions Static Standing Good Balance Ability Dynamic Standing Fair Balance Ability Device Used FWW M5 PT-IP Objective Assessments Start: 05/08/25 12:08 Freq: NEEDED Status: Active Protocol: Document 05/08/25 14:15 DLM (Rec: 05/08/25 14:34 DLM Desktop) Orientation Orientation/Cognition Level of Alertness Alert Orientation Name,Year,Place Language Function Expressive Aphasia,Word Finding Difficulties Ability Safety Awareness Decreased Safety Awareness Memory Description Short Term Impaired Comments decreased awareness of his deficits Gross Range of Motion Upper Extremity ROM Assessment Within Functional Limits Lower Extremity ROM Assessment Within Functional Limits Strength Lower Extremity Strength Assessment Right Impaired Hip flex Right 2+/5, left 3+/5 with back pain Knee knee 4-/5 Ankle DF 4/5 Comments Strength Comments he had difficulty following instructions for MMT with right LE worse than left, perseverates on last task, unable to test UE's at this time Coordination Assessment Gross Coordination Gross Coordination Impaired Sensation Assessment Sensation Gross Sensation WNL Comments Sensation Comments he denies numbness/tingling Muscle Tone Muscle Tone WNL Yes M6 PT-IP Treatment Start: 05/08/25 12:08 Freq: NEEDED Status: Active Protocol: Document 05/12/25 09:10 SP (Rec: 05/12/25 12:28 SP Laptop) Physical Therapy Treatment Education Education Provided Safety Other Treatments Other Treatment Education on BP logs due hypotensive during standing Performed mobility safety concern, limit distance if low, discussed normal value 120/80. M7 PT-IP Assessment and Plan Start: 05/08/25 12:08 Freq: NEEDED Status: Active Protocol: Document 05/12/25 09:10 SP (Rec: 05/12/25 12:28 SP Laptop) PT Summary Assessment and Plan Potential Rehabilitation Fair Potential Summary Impairments Pain,ROM,Strength,Balance,Coordination,Sensation,Tone, Cognition,Bed Mobility,Transfers,Gait,Activity Tolerance Progress Towards Slow Progress due to Medical Issues,Slow Progress - Goals Other Assessment Summary Pt CG-5%A during standing mobillity, hypotensive during gait, only reported 1% dizziness and willing to walk in the room with FWW. Recommending / available of can assist him, HHPT vs outpatient PT. Goals Bed Mobility Goal Independent Transfer Goal Independent Gait Goal Independent,Front Wheel Walker Gait Distance 150 feet Other Goals Up/down 2 steps with rail and cane with CG assist Days to Meet Goals 7 Frequency of Treatment Frequency Of Once a Day Treatment Treatment Plan Physical Therapy Bed Mobility Training,Transfer Training,Gait Training, Treatment Plan Therapeutic Exercise,Balance Retraining,Post Op Education,Discharge Planning,Neuromuscular Re-ed, Coordination Retraining Other vitals check, transfer training with FWW, gait distance Recommendations and as karen and safe, balance trng, stair mgt with as Next Treatment Focus needed. Precautions Other Precautions fall risk Wallenberg syndrome, vertebrobasilar insufficiency cognitive impairment Recommendations To Nursing Amount of Assist 1 Person Assist Needed Discharge Recommendations PT Discharge Home with 24/7 Assist Available,Home Health,Outpatient Recommendations PT Transportation Needs Private Vehicle at Discharge - PT assist 1
--- NOTE | 2025-05-12 09:45 | OT.IP.TRT ---
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) Essential (primary) hypertension (05/07/25) Paroxysmal atrial fibrillation (05/07/25) Other chest pain (05/07/25) Occupational Therapy Treatment Note M2 OT-IP Current Condition Start: 05/08/25 10:24 Freq: Status: Active Protocol: Document 05/08/25 12:11 [facility] (Rec: 05/08/25 12:43 [facility] Desktop) Occupational Therapy Current Condition Current Condition Evaluation Date 05/08/25 Treatment Diagnosis Falls, uncontrollable HTN Diagnosis Onset Date 05/07/25 M3 OT- IP Subjective and Pain Start: 05/08/25 10:24 Freq: Status: Active Protocol: Document 05/12/25 11:14 [facility] (Rec: 05/12/25 11:23 [facility] [id number]) OT- Subjective Occupational Therapy Visit Type Type Treatment Note Visit Start Time 09:30 Visit Stop Time 09:45 Occupational Therapy Visit Comments Patient Comments Pt agreed to do SLUMS as thinking much better today. Patient/Caregiver TO go home. Pt's wanting to be sure pt is on the Goals correct medication regiment prior to going home, hospitalist notified. OT Pain Assessment Pain When Pain Assessed During Mobility Pain Present Pain Present Pain Reported Location lower back Pain Behaviors Facial Grimacing M4 OT- IP ADL's Start: 05/08/25 10:24 Freq: Status: Active Protocol: Document 05/08/25 12:11 [facility] (Rec: 05/08/25 12:43 [facility] Desktop) OT MAX-Dfic-Xakugov Comments OT Self-Feeding Not at meal time. Comments OT ADL-Grooming Comments OT Grooming Comments Not performed. OT ADL-Oral Care Comments Oral Care Comments Not performed. OT ADL-Dressing Comments OT Dressing Comments Pt's assist with LB dressing needs. OT ADL-Toileting Comments OT Toileting Pt not having to go. Comments OT ADL-Bathing Comments OT Bathing Comments Not performed. M5 OT- IP IADL's Start: 05/08/25 10:24 Freq: Status: Active Protocol: Document 05/08/25 12:11 [facility] (Rec: 05/08/25 12:43 [facility] Desktop) OT-Instrumental Activities of Daily Living Meal Preparation Meal Preparation Caregiver Provides Assist Manager Perioperative Manager Perioperative Caregiver Provides Assist M6 OT- IP Functional Cognition Start: 05/08/25 10:24 Freq: Status: Active Protocol: Document 05/12/25 11:14 [facility] (Rec: 05/12/25 11:23 [facility] [id number]) Cognitive Factors Limiting Selfcare Function Cognitive Ability Level of Alertness Alert Patient Orientation Name,Age,Birthday,Month,Date,Year,Day of Week,Place, Situation Attention Span Capable of Focused Attention,Capable of Sustained Ability Attention Ability to Follow Able to Follow One Step Commands Commands Memory Description Short Term Impaired Cognitive Tests SLUMS Pt scored 23/30 which implies mild neurocognitive deficits. Pt able to recall 14 animals in on minute, able to recall 3/5 objects after time passed, and able to answer 2/4 questions after time passed. Pt's feel that pt is very close to his cognitive baseline at this time. Last Monday when attempted, pt not even able to immediately recall 5 objects immediately and thought he was in [place]. Cognitive Comments Cognitive Assessment Pt able to follow commands appropriately today. Comments M7 OT- IP Mobility and Balance Start: 05/08/25 10:24 Freq: Status: Active Protocol: Document 05/09/25 14:25 [facility] (Rec: 05/09/25 14:44 [facility] Desktop) OT-Transfer Assessment Sit to and From Stand Sit to and from Standby Assistance Stand Transfers Transfer Ability Contact Guard Assistance Technique Transfer Destination Chair Transfer Technique Stand Step Pivot Devices Transfer Assistive Gait Belt,Front Wheeled Walker Devices Comments Mobility Comments Pt SBA to stand and CGA with the FWW as unsteady on his feet. Pt needing cues to use the FWW and reach back with for the armrests before sitting down. Pt's BP supine 102/62. OT- Balance Assessment Sitting Balance and Reactions Static Sitting Good Balance Ability Dynamic Sitting Good Balance Ability Standing Balance and Reactions Static Standing Fair Balance Ability Dynamic Standing Fair Balance Ability M8 OT- IP Objective Assessments Start: 05/08/25 10:24 Freq: Status: Active Protocol: Document 05/08/25 12:11 [facility] (Rec: 05/08/25 12:43 [facility] Desktop) OT Gross Range of Motion Upper Extremity Range of Motion Assessment Within Functional Limits OT Strength Upper Extremity Strength Assessment Within Functional Limits OT- Coordination Assessment Upper Extremity Finger to Nose Test Bilateral UE Impaired Comments Coordination slightly off for both hands Comments M9 OT- IP Assessment and Plan Start: 05/08/25 10:24 Freq: Status: Active Protocol: Document 05/12/25 11:14 [facility] (Rec: 05/12/25 11:23 [facility] [id number]) OT Summary Assessment and Plan Potential Rehabilitation Good Potential Analytic Complexity Moderate at Evaluation Summary OT Impairments Pain,Balance,Functional Cognition,Functional Mobility, Dressing,Toileting,Bathing,Toilet Transfers,Shower Transfers,Activity Tolerance Progress Towards Progressing Toward Goals Goals Assessment Summary Pt doing much better cognitively today and well aware that he will leave the driving to his . Pt to go home when medically stable. Goals Self-Feeding Goal Independent Grooming Goal Independent Dressing Goal Moderate Assistance Toileting Goal Standby Assistance Bathing Goal Standby Assistance Toilet Transfer Goal Standby Assistance Shower Transfer Goal Standby Assistance Days to Meet Goals 10 Frequency of Treatment Other frequency 5x/week Treatment Plan OT Treatment Plan ADL Training,Functional Mobility,Patient/Family Education,Discharge Planning Discharge Recommendations OT Discharge Home with 27/03 Assist Available,Home Health Recommendations Transportation Needs Private Vehicle at Discharge
--- NOTE | 2025-05-12 10:46 | DIET.CONS ---
Dietary Consultation Note Admission Date: 05/07/2025 21:57 Assessment: 74 y M presenting with chest pain/fall to rule out stroke. Dietitian screened for LOS. EMR reviewed. PO intakes 75-100%. Hx of DM, well controlled, last A1c 6.9% on 11/29/24. Has received previous DM educ per last admission RD note. BG over weekend 141-172. Ht: 157.48 cm Wt: 85.3 kg BMI: 37.0 UBW: 86.183 kg on 11/28/24 Last BM: 05/11/25 (05/11/25 21:00) MNA: 14 Joe Score: 19 Diet: 05/08/25 Breakfast Carbohydrate Consistent Diet Diet Modifications: Carbohydrate level: Medium (3 CHO) Reflex DM orders: No Food Texture: Level 7 - Regular Liquid Consistency: Level 0 - Thin Nutrition Percent Meal Consumed 100% 05/12/25 09:00 Percent Meal Consumed 100% 05/11/25 18:00 Percent Meal Consumed 75% 05/10/25 18:00 Labs: RBC 4.33 X10^6/uL (4.5-5.9) L 05/09/25 06:14 Hgb 12.1 g/dL (13.5-17.5) L 05/09/25 06:14 Hct 36.1 % (41-53) L 05/09/25 06:14 Creatinine 0.95 mg/dL (0.66-1.25) 05/09/25 06:14 NT-Pro-B Natriuret Pep 176 pg/mL (<125) H 05/07/25 18:50 Nutrition Diagnosis: none at this time Monitoring/Evaluations: PO intakes Electronically Signed by: Monica Zafar 05/12/25 10:46 Clinical Dietitian [address] [address]
--- NOTE | 2025-05-12 11:28 | P.PN_ITS ---
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 Patient presents with fall x2 yesterday from walker without head injury or syncope now with left lower chest tenderness, reproducible, not worse with inspiration. Since this afternoon, new dysphagia without new focal weakness. Initial labs and imaging were acutely unremarkable. He also had elevated bp initially 177 systolic and most recently 203. He has no new symptoms from what has been described. Blood pressure normally runs 120s systolic at home. Also has a past medical history of prostate cancer, BPH w/ LUTS, RLS, C-spines stenosis, depression/anxeity, BECKIE, HTN, hyperlipidemia, DM2, with chronic leg weakness. Echocardiogram performed 11/29/2024: Interpretation Summary The study quality was technically difficult. The patient was in atrial fibrillation with heart rates between 61-85 bpm during the exam. Left ventricular wall thickness is mildly increased. Left ventricular ejection fraction is estimated to be 50 +/- 5%. Diastolic function could not be accurately assessed due to atrial fibrillation. The right ventricle is normal size. Right ventricular systolic function is mildly reduced. No obvious valvular abnormalities. Pulmonary artery pressures cannot be estimated because of the lack of a measurable TR jet velocity but the IVC suggests a CVP of around 15 mmHg. The ascending aorta is mildly enlarged. CTA of the head and neck: Chronically diminutive and distally occluded left vertebral artery and circumferential atherosclerotic calcification involving both intracranial internal carotid arteries and right intracranial vertebral artery. Brain CT unrevealing for new infarct Hospital course: 05/08: Patient receiving sedation for brain MRI this morning to evaluate for cerebrovascular accident. Dense expressive aphasia this morning MRI is negative 05/09: The patient has had waxing and waning left-sided weakness and aphasia, though notably this morning he is able to move both arms and legs without limitation, and his notes that his aphasia has resolved. Case reviewed in detail with Dr. Santamaria of consulting cardiology. 05/10: The patient has persistent mild confusion. He can only recall 2/5 objects at 1 minute, and name 11 animals in 1 minute, frequently repeating the same animal. He is interested in returning home. 05/11: The patient experienced transient hypotension yesterday in the 80s. His enalapril was discontinued. He continues on lisinopril with blood pressure in the 129 over 54 to 156/67 range this morning. He denies chest pain, breathing problems, or new stroke symptoms. His Angel notes that his recall and mental status appears at baseline, with mild forgetfulness and cognitive impairment noted. S: He was improved today but still feels woozy. His speech is better. He was arm and leg strength is improving and there was no focal weakness. His blood pressure has been somewhat up and down. Exam Vital Signs (past 8 hours): - 05/12/25 04:00 05/12/25 08:00 05/12/25 10:00 Temperature 96.8 F L 96.9 F L Pulse Rate 74 92 H Respiratory Rate 16 17 Blood Pressure 140/57 L 133/60 Pulse Oximetry 92 93 Oxygen Delivery Method Room Air Oxygen Flow Rate 0 0 Oxygen Delivery Method Room Air Oxygen Flow Rate 0 Narrative Exam Narrative: NAD, alert and oriented. Fluent speech. Lungs are clear, normal rate and effort. Heart is regular, no murmur gallop or rub. Abdomen is soft, non distended. Extremities are free of edema. Objective ECG Impression: Intervals [place] Rate: 56 P: [place]: 202 QRS: -27 QRSD: 108 T: -26 QT: 436 QTc: 420 Interpretive Statements Sinus bradycardia with premature atrial complexes Incomplete right bundle branch block Minimal voltage criteria for LVH, may be normal variant ( R in aVL ) Labs 05/09/25 06:14 05/09/25 06:14 Labs: Laboratory Results - last 24 hr 05/11/25 05/11/25 05/11/25 11:59 17:10 20:45 POC Whole Bld Glucose 157 H 158 H 150 H 05/12/25 08:08 POC Whole Bld Glucose 161 H [facility] Medical History Paroxysmal atrial fibrillation Lateral medullary syndrome Androgen deprivation therapy Prostate cancer BPH loc w urin obs/LUTS Urinary retention BPH (benign prostatic hyperplasia) History of urinary retention Constipation Elevated PSA Claustrophobia Easy bruisability Undescended testicle of both sides Shortness of breath RLS (restless legs syndrome) Cervical stenosis of spinal canal Adopted Depression Anxiety Poor sleep Myelopathy Cervical myelopathy (11/16/17) Iron deficiency (07/31/17) Essential hypertension (07/14/14) 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/taoism: [employer] travel history: recurrent ([place] every 1-2 years.) leisure activities: reading and other (Gardening) Smoking Status: Former smoker Tobacco: How many years used: 40 Smokeless tobacco user: other (Cigarettes) quit status: quit date established (2005) second hand exposure: No alcohol intake: current substance use type: does not use additional social history: Use stick and walker at home. Mostly assisted by his . Assessment & Plan Assessment & Plan narrative: 1. Fall from walker with blunt chest wall injury without signs of fracture pneumothorax or hemothorax * No further evaluation indicated 2. Dysphagia and expressive aphasia, mild cognitive impairment, possibly acute on chronic * Vascular study indicates significant intracranial cerebrovascular disease it may be culprit. Continue Clopidogrel 75mg daily * Patient has paroxysmal atrial fibrillation and may be at risk for embolic cerebrovascular events. Continue Eliquis 2.5mg BID started 05/09/2025 * Dual antiplatelet and DOAC anticoagulation warrants assessment of fall and bleeding risk * Had previous modified barium swallow study earlier this year * Appears to be at his baseline at this point. 3. 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 * Continue Eliquis 2.5mg BID for atrial fibrillation stroke prevention, [id number] score = 5 * Risk of bleeding discussed with patient and his who expressed understanding, recognizing the high risk of recurrent stroke and TIA in this patient with multiple risk factors. 4. Previous stroke with medullary syndrome and strong correlation to finding of vertebral artery occlusion and atherosclerosis * Concern for recurrent ischemia and perhaps even medullary watershed phenomenon involving the anterior spinal arteries and vertebral arteries 5. Paroxysmal atrial fibrillation * Cardiology consultation appreciated * Continue Eliquis 2.5mg BID on 05/09 * Assess fall risk given dual antiplatelet-DOAC therapy 6. Hypertension. * Initially hypertensive with blood pressures up to 208/90 on 05/07, appears to have been overtreated on 05/11. Enalapril discontinued. * Monitor on his usual home dose of lisinopril 20 mg daily. 7. Hyperlipidemia. * Continue [id number] mg daily, usual home dosing. 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 -physical therapy and monitor progress. -monitor blood pressure trends and neurologic status. Anticipate discharge on May 13 if he continues to improve. Time-Based Coding :: [TOTAL MINUTES] spent with patient and on the chart (including review of chart, obtaining history, exam, reviewing outside data, placing orders, documenting exam and treatment plan, and counseling patient) on [DATE].
--- NOTE | 2025-05-12 11:44 | CM.DPNOTE ---
DCP Cont Reviewed chart. Patient discussed in multidisciplinary rounds. Patient with complicated medical/cardiac history, high risk for recurrent stroke, KAIDEN 05/13 if patient continues to improve cognitively and functionally with therapies. Plan remains discharge home w/spouse who prefers outpatient PT; close outpatient follow up. Social work team following clinical course closely in case any discharge needs or concerns arise. JW
[2025-05-12] MEDS: SODIUM CHLORIDE 0.9% FLUSH 10 ML IV (12:19)
--- NOTE | 2025-05-12 12:41 | PC.NURSE ---
Patient has been sitting up in his chair, he denies pain. Blood sugars 161 and 200 today. His pressure this morning was wnl, lisinopril held at request of Pressure taken about an hour ago with dyastolic in the 40s. Patient denies feeling dizzy and is visitting with his . Medications and insulin given.
[2025-05-12] MEDS: ATORVASTATIN 20 MG TABLET PO (20:11)
[2025-05-13] VITALS (7 sets, daily range): BP systolic 116–134; BP diastolic 50–56; PULSE 64–89; RESP 9–18; TEMP 35.7–36.1; O2SAT 92–95
[2025-05-13] MEDS: CLOPIDOGREL 75 MG TABLET PO (08:52)
[2025-05-13] MEDS: TAMSULOSIN 0.4 MG CAPSULE PO (08:52)
[2025-05-13] MEDS: BACLOFEN 10 MG TABLET 20 MG PO (08:52)
[2025-05-13] MEDS: PREGABALIN 25 MG CAPSULE 100 MG PO (08:52)
[2025-05-13] MEDS: PANTOPRAZOLE DR 40 MG TABLET PO (08:52)
[2025-05-13] MEDS: APIXABAN 5 MG TABLET 2.5 MG PO (08:52)
[2025-05-13] MEDS: INSULIN LISPRO 100 UNIT/ML 3ML VIAL SUBCUT ×2 (08:53→11:49)
--- NOTE | 2025-05-13 12:09 | OT.IPNOTE ---
Pt states already showered yesterday and he is aware to call his to assist as needed. Pt to go home with his to assist.
--- NOTE | 2025-05-13 12:51 | PC.NURSE ---
Pt is dressed and ready for discharge home with Spouse. IV has been removed. Went over d/c instructions with Pt and Spouse-discussed d/c meds, time of last dose, reviewed stroke education, and follow up. Pt denied further questions and was taken out via w/c by [facility] [employer] TECH to POV with Spouse and all belongings.
--- NOTE | 2025-05-13 13:40 | CM.DPNOTE ---
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 P: dc home today with partner and no CM needs. will continue to follow as needed TIN Garcia
--- NOTE | 2025-06-12 15:00 | P.DS_ITS ---
History of Present Illness History of Present Illness Chief complaint: chest pain, slurred speach, fell last night Narrative: From H&P: 74M with PMH of prostate cancer, BPH w/ LUTS, RLS, C-spines stenosis, depression/anxeity, BECKIE, HTN, hyperlipidemia, DM2, past CVA with chronic leg weakness presents with fall x2 yesterday from walker without head injury or syncope now with left lower chest tenderness, reproducible, not worse with inspiration, and since this afternoon, new dysphagia without new focal weakness. Initial labs and imaging were acutely unremarkable. He also had elevated bp initially 177 systolic and most recently 203. He has no new symptoms from what has been described. Blood pressure normally runs 120s systolic at home. Discharge Providers Provider Date of admission: 05/07/25 21:57 Discharge Date: 05/13/25 Primary care physician: Elton Dang MD Consults: 05/07/25 22:28 Consult to Occupational Therapy Evaluate & Treat Comment: Physician Instructions: Evaluate and treat Consult to Physical Therapy Evaluate & Treat Comment: Physician Instructions: Evaluate and Treat Discharge provider: William Mendoza MD Summary Hospital Course Discharge Diagnosis: 1. Fall from walker with blunt chest wall injury without signs of fracture pneumothorax or hemothorax. 2. Dysphagia and expressive aphasia, mild cognitive impairment, possibly acute on chronic. * Vascular study indicates significant intracranial cerebrovascular disease it may be culprit. Continue Clopidogrel 75mg daily * Patient has paroxysmal atrial fibrillation and may be at risk for embolic cerebrovascular events. Continue Eliquis 2.5mg BID started 05/09/2025 * Dual antiplatelet and DOAC anticoagulation warrants assessment of fall and bleeding risk * Had previous modified barium swallow study earlier this year * Appears to be at his baseline at this point. 3. 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 * Continue antiplatelet therapy for known vertebrobasilar artery disease. * Continue Eliquis 2.5mg BID for atrial fibrillation stroke prevention, [id number] score = 5 * Risk of bleeding discussed with patient and his who expressed understanding, recognizing the high risk of recurrent stroke and TIA in this patient with multiple risk factors. 4. Previous stroke with medullary syndrome and strong correlation to finding of vertebral artery occlusion and atherosclerosis. * Concern for recurrent ischemia and perhaps even medullary watershed phenomenon involving the anterior spinal arteries and vertebral arteries 5. Paroxysmal atrial fibrillation. * Cardiology consultation appreciated * Continue Eliquis 2.5mg BID on 05/09 * Assess fall risk given dual antiplatelet-DOAC therapy 6. Hypertension. * Initially hypertensive with blood pressures up to 208/90 on 05/07, appears to have been overtreated on 05/11. Enalapril discontinued. * Monitor on his usual home dose of lisinopril 20 mg daily. 7. Hyperlipidemia. * Continue [id number] mg daily, usual home dosing. 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 Patient presents with fall x2 yesterday from walker without head injury or syncope now with left lower chest tenderness, reproducible, not worse with inspiration. Since this afternoon, new dysphagia without new focal weakness. Initial labs and imaging were acutely unremarkable. He also had elevated bp initially 177 systolic and most recently 203. He has no new symptoms from what has been described. Blood pressure normally runs 120s systolic at home. Also has a past medical history of prostate cancer, BPH w/ LUTS, RLS, C-spines stenosis, depression/anxeity, BECKIE, HTN, hyperlipidemia, DM2, with chronic leg weakness Previous echocardiogram performed 11/29/2024: Interpretation Summary The study quality was technically difficult. The patient was in atrial fibrillation with heart rates between 61-85 bpm during the exam. Left ventricular wall thickness is mildly increased. Left ventricular ejection fraction is estimated to be 50 +/- 5%. Diastolic function could not be accurately assessed due to atrial fibrillation. The right ventricle is normal size. Right ventricular systolic function is mildly reduced. No obvious valvular abnormalities. Pulmonary artery pressures cannot be estimated because of the lack of a measurable TR jet velocity but the IVC suggests a CVP of around 15 mmHg. The ascending aorta is mildly enlarged. Findings in the emergency department notable on CTA of the head and neck for: Chronically diminutive and distally occluded left vertebral artery and circumferential atherosclerotic calcification involving both intracranial internal carotid arteries and right intracranial vertebral artery. Brain CT unrevealing for new infarct Clinical findings significant for dysphagia and word searching expressive aphasia Hospital course: 05/08: Patient receiving sedation for brain MRI this morning to evaluate for cerebrovascular accident. Dense expressive aphasia this morning MRI is negative 05/09: The patient has had waxing and waning left-sided weakness and aphasia, though notably this morning he is able to move both arms and legs without limitation, and his notes that his aphasia has resolved. Case reviewed in detail with Dr. Santamaria of consulting cardiology. 05/10: The patient has persistent mild confusion. He can only recall 2/5 objects at 1 minute, and name 11 animals in 1 minute, frequently repeating the same animal. He is interested in returning home. 05/11: The patient experienced transient hypotension yesterday in the 80s. His enalapril was discontinued. He continues on lisinopril with blood pressure in the 129 over 54 to 156/67 range this morning. He denies chest pain, breathing problems, or new stroke symptoms. His Angel notes that his recall and mental status appears at baseline, with mild forgetfulness and cognitive impairment noted. 05/12: Feels improved, but woozy. No focal weakness. Status at Discharge Cognitive/behavioral status at discharge: oriented Functional status at discharge: uses cane/walker Overall status at discharge: patient is back to baseline Time Spent with Patient Time spent: Greater than 30 minutes Exam Vital Signs (past 8 hours): Oxygen Delivery Method Room Air Oxygen Flow Rate 0 Narrative Exam Narrative: NAD, alert and oriented. Fluent speech. Lungs are clear, normal rate and effort. Heart is regular, no murmur gallop or rub. Abdomen is soft, non distended. Extremities are free of edema. Objective ECG Impression: Impression: Intervals [place] Rate: 56 P: [place]: 202 QRS: -27 QRSD: 108 T: -26 QT: 436 QTc: 420 Interpretive Statements Sinus bradycardia with premature atrial complexes Incomplete right bundle branch block Minimal voltage criteria for LVH, may be normal variant ( R in aVL ) Imaging Multiple studies:: Radiologist's impression: Carotid Doppler: 1. In the right carotid artery, there is no hemodynamically significant stenosis based on peak systolic velocity criteria. 2. In the left carotid artery, there is less than 50% stenosis based on peak systolic velocity criteria. 3. Antegrade vertebral arteries. Brain MRI: 1. No acute process. No recent infarct. 2. Mild volume loss and small vessel ischemic disease. Brain CT: No acute intracranial pathology. Called to Dr. Rankin. Consider MRI if there is high concern for infarction. Chest x-ray: Bibasilar strandy opacities suggesting atelectasis or infiltrate. Head and neck CTA: No significant intracranial arterial abnormality is seen. No significant abnormality is seen within the arteries of the neck. Probably chronically diminutive and distally occluded left vertebral artery. Circumferential atherosclerotic calcification involving both intracranial internal carotid arteries and the right intracranial vertebral artery. Labs 05/09/25 06:14 05/09/25 06:14 [facility] Medical History Paroxysmal atrial fibrillation Lateral medullary syndrome Androgen deprivation therapy Prostate cancer BPH loc w urin obs/LUTS Urinary retention BPH (benign prostatic hyperplasia) History of urinary retention Constipation Elevated PSA Claustrophobia Easy bruisability Undescended testicle of both sides Shortness of breath RLS (restless legs syndrome) Cervical stenosis of spinal canal Adopted Depression Anxiety Poor sleep Myelopathy Cervical myelopathy (11/16/17) Iron deficiency (07/31/17) Essential hypertension (07/14/14) 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 Mostly assisted by his . Discharge Assessment & Plan Assessment and Plan Assessment: 1. Fall. 2. Chronic aphasia. Plan of Treatment: Stable for discharge home. Discharge Plan Discharge Plan Patient Disposition: Home Provider Discharge Comment: Stable for discharge. Discharge orders & Medications Prescriptions: New Eliquis 5 mg Tablet 2.5 mg PO BID Qty: 60 0RF lisinopril 10 mg tablet 10 mg PO DAILY Qty: 30 2RF Continued albuterol sulfate [Ventolin HFA] 90 mcg/actuation HFA aerosol inhaler 1 puff INHALATION PRN PRN (Reason: bronchospasm) Qty: 18 3RF Rx Instructions: Inhale one puff by mouth as needed for brochospasm duloxetine 30 mg Capsule,Delayed Release(Dr/Ec) 30 mg PO BEDTIME metformin [Glucophage] 500 mg tablet 1,000 mg PO BIDCC tamsulosin [Flomax] 0.4 mg capsule 0.4 mg PO BID Rx Instructions: 1 pill in AM, 2 pills in PM atorvastatin [Lipitor] 20 mg tablet 20 mg PO BEDTIME clonazepam 1 mg tablet 0.5 mg PO .hs pantoprazole 40 mg tablet,delayed release (DR/EC) 40 mg PO BID Qty: 60 6RF baclofen 20 mg tablet 20 mg PO BID Rx Instructions: Takes at routinely at 0100 and 1400 pregabalin 100 mg capsule 100 mg PO DAILY clopidogrel [Plavix] 75 mg Tablet 75 mg PO DAILY Discontinued lisinopril 20 mg tablet 20 mg PO QDAY Qty: 90 3RF Follow up/Referrals: Elton Dang MD [Primary Care Provider, Family Practice] Diet/Activity/Treatments Diet: Carb-consistent/Diabetic Activity: As tolerated. Visit Report/Discharge Packet Instructions: Lisinopril, How to Monitor Your Blood Pressure at Home, Apixaban Stand Alone Forms: Patient Portal/API, Stroke Signs & Symptoms Discharge Data Primary Care Provider: Elton Dang
== END 2025-05-13 12:38 | disposition home or self-care (01) | DRG 914 ==
LOC: ED 21:56 → AC 05-08 08:18
PROVIDERS: Internal Medicine; Admitting Provider Internal Medicine; Emergency Provider Emergency Medicine; PCP Family Medicine; Visit Provider Internal Medicine
DX: S29.9XXA Unspecified injury of thorax, initial encounter (principal); R47.01 Aphasia; I69.354 Hemiplegia and hemiparesis following cerebral infarction affecting left non-dominant side; R07.89 Other chest pain; R13.10 Dysphagia, unspecified; I16.0 Hypertensive urgency; I10 Essential (primary) hypertension; R29.6 Repeated falls; E11.9 Type 2 diabetes mellitus without complications; I48.0 Paroxysmal atrial fibrillation; G46.4 Cerebellar stroke syndrome; I69.391 Dysphagia following cerebral infarction; I69.393 Ataxia following cerebral infarction; G90.2 Horner's syndrome; W18.30XA Fall on same level, unspecified, initial encounter; I65.01 Occlusion and stenosis of right vertebral artery; I67.9 Cerebrovascular disease, unspecified; E78.2 Mixed hyperlipidemia; Z87.891 Personal history of nicotine dependence; Z79.02 Long term (current) use of antithrombotics/antiplatelets
CPT/HCPCS: 36415; 70450; 70496; 70498; 70551; 71045; 80048; 80053; 80305; 81003; 82550; 82962; 83690; 83735; 83880; 84484; 85025; 85610; 85730; 92610; 93005; 93880; 97116; 97129; 97163; 97166; 97530; 99284; J0360; J1644; J1815; J2060; Q9967